=== PATIENT | female | born 1960 | race Caucasian/White ===

== ENCOUNTER 2016-10-15 04:38 | Emergency (ER) | payer BC ==
[~2016-10-15] VITALS: Ht 167.6 cm; Wt 79.2 kg
[~2016-10-15 04:38] MED LIST: ATOR10TA88 PO; FLX10 PO; LEVO-366 PO; LISI-729 PO; PANT40TA PO
[2016-10-15 04:43] VITALS: Ht 167.6 cm; Wt 79.2 kg
[2016-10-15] MEDS ORDERED: ONDANSETRON INJ 2 MG/ML 2 ML VIAL IV STA (04:59)
[2016-10-15] MEDS ORDERED: MoRPHine SULFATE 4 MG/ML 1 ML CARP\\VIAL IV STA ×2 (04:59→07:32)
--- NOTE | 2016-10-15 05:24 | EMERGENCY ROOM VISIT NOTE ---
History Report prepared by Jeronimo: Carlos A Horton Under the Supervision of: Dr. Gisel Brady D.O. First contact with patient: 04:52 Chief Complaint: HEADACHE Stated Complaint: HEAD ACHE History of Present Illness The patient is a 56 year old female who presents to the Emergency Room with complaints of a severe headache for the past couple of hours. The patient notes that the discomfort from the headache woke her up from sleep. She describes the comfort as severe shooting pains. She also complains of nausea. She has not had a headache like this before. She has not had any changes to her medications recently. She takes her blood pressure medication as prescribed and her blood pressure is usually pretty controlled. Source of History: patient Onset: past couple of hours Position: head Symptom Intensity: severe Quality: other (shooting) Timing: other (persistent) Associated Symptoms: + nausea Review of Systems See HPI for pertinent positives & negatives. A total of 10 systems reviewed and were otherwise negative. Past Medical & Surgical Medical Problems: (1) Hypertension Nos Surgical Problems: (1) History of appendectomy (2) History of hysterectomy Family History Heart disease Hypertension Kidney disease Kidney stones Seizures Social History Smoking Status: Former Smoker Alcohol Use: occasionally Marital Status: Housing Status: lives with significant other Occupation Status: employed Current/Historical Medications Scheduled Atorvastatin (Lipitor), 10 MG PO DAILY Pantoprazole (Protonix), 40 MG PO DAILY Scheduled PRN Cyclobenzaprine HCl (Cyclobenzaprine HCl), 10 MG PO HS PRN for Muscle Spasms Oxycodone/Acetaminophen 5MG/325MG (Percocet 5MG/325MG), 1-2 TABLETS PO Q6 PRN for Pain Allergies Coded Allergies: Naproxen (Verified Allergy, Unknown, ., 10/15/16) Sulfamethoxazole w/Trimethoprim (Verified Allergy, Unknown, UNKNOWN, ) Physical Exam Vital Signs Date Time Temp Pulse Resp B/P Pulse Ox O2 Delivery O2 Flow Rate FiO2 10/15/16 07:49 65 15 164/100 97 Room Air 10/15/16 07:11 36.5 61 22 173/107 96 Room Air 10/15/16 06:30 56 18 161/92 10/15/16 06:06 63 18 159/94 97 Room Air 10/15/16 05:19 62 16 170/102 98 Room Air 10/15/16 05:12 73 3/2/17 04:43 90 22 206/100 95 Room Air Physical Exam General: Appears extremely uncomfortable, photophobic, and tachypneic. HEENT: Head - normocephalic and atraumatic. Pupils are equal, round, and reactive to light. Extraocular eye muscles are intact and sclera are anicteric. Ears - bilaterally patent canals with noninjected tympanic membranes and no evidence of hemotympanum. Nose - moist nasal mucosa without discharge. Mouth - moist buccal mucosa. Oropharynx is nonerythematous and there is no tonsillar exudate or edema noted. Neck: Supple; no JVD, nuchal rigidity, cervical lymphadenopathy, or auscultated bruits. Heart: Regular rate and rhythm. There is a normal S1 and S2 with no murmurs, clicks, or gallops appreciated. Lungs: Clear to auscultation bilaterally with no wheezes, rales, or rhonchi. Abdomen: Soft, completely nontender, nondistended, with good bowel sounds. There are no palpable pulsatile masses or hepatosplenomegaly. There is no guarding, rigidity, or rebound noted. Extremities: No evidence of cyanosis, clubbing, or edema. There are easily palpable peripheral pulses. Neuro:The patient is awake and alert, oriented to day, time, and place. Muscle strength is 5/5 in all 4 extremities. 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 There are no cerebellar signs. Medical Decision & Procedures ER Provider Diagnostic Interpretation: CT results as stated below per my review and radiologist interpretation: HEAD CT NONCONTRAST CT DOSE: 614.27 mGy.cm HISTORY: severe headache and htn TECHNIQUE: Multiaxial CT images of the head were performed without the use of intravenous contrast. Comparison: None. Findings: The paranasal sinuses and mastoid air cells are clear. The calvarium and skull base are intact. The ventricles and sulci are within normal limits. There is no mass, hematoma, midline shift, or acute infarct. Impression: No acute intracranial abnormality. Electronically signed by: Kingsley Steele M.D. 10/15/2016 6:34 AM Dictated Date/Time: 10/15/2016 6:33 AM Laboratory Results 10/15/16 05:15 Red Blood Count 4.71, Mean Corpuscular Volume 81.7, Mean Corpuscular Hemoglobin 29.1, Mean Corpuscular Hemoglobin Concent 35.6, Mean Platelet Volume 9.1, Neutrophils (%) (Auto) 59.0, Lymphocytes (%) (Auto) 28.4, Monocytes (%) (Auto) 9.7, Eosinophils (%) (Auto) 2.4, Basophils (%) (Auto) 0.3, Neutrophils # (Auto) 3.88, Lymphocytes # (Auto) 1.87, Monocytes # (Auto) 0.64, Eosinophils # (Auto) 0.16, Basophils # (Auto) 0.02 10/15/16 05:15 Test 10/15/16 05:15 10/15/16 06:29 White Blood Count 6.58 K/uL (4.8-10.8) Red Blood Count 4.71 M/uL (4.2-5.4) Hemoglobin 13.7 g/dL (12.0-16.0) Hematocrit 38.5 % (37-47) Mean Corpuscular Volume 81.7 fL (80-100) Mean Corpuscular Hemoglobin 29.1 pg (25-34) Mean Corpuscular Hemoglobin Concent 35.6 g/dl (32-36) Platelet Count 178 K/uL (130-400) Mean Platelet Volume 9.1 fL (7.4-10.4) Neutrophils (%) (Auto) 59.0 % Lymphocytes (%) (Auto) 28.4 % Monocytes (%) (Auto) 9.7 % Eosinophils (%) (Auto) 2.4 % Basophils (%) (Auto) 0.3 % Neutrophils # (Auto) 3.88 K/uL (1.4-6.5) Lymphocytes # (Auto) 1.87 K/uL (1.2-3.4) Monocytes # (Auto) 0.64 K/uL (0.11-0.59) Eosinophils # (Auto) 0.16 K/uL (0-0.5) Basophils # (Auto) 0.02 K/uL (0-0.2) RDW Standard Deviation 37.4 fL (36.4-46.3) RDW Coefficient of Variation 12.5 % (11.5-14.5) Immature Granulocyte % (Auto) 0.2 % Immature Granulocyte # (Auto) 0.01 K/uL (0.00-0.02) Nucleated RBC Absolute Count (auto) 0.00 K/uL (0-0) Nucleated Red Blood Cells % 0.0 % Anion Gap 9.0 mmol/L (3-11) Est Creatinine Clear Calc Drug Dose 98.9 ml/min Estimated GFR () 114.4 Estimated GFR (Non- 98.7 BUN/Creatinine Ratio 19.5 (10-20) Calcium Level 8.9 mg/dl (8.5-10.1) CSF Color COLORLESS CSF Appearance CLEAR CSF WBC 0 /uL (0-5) CSF RBC 2 /uL (0) CSF Xanthrochromic NO XANTHOCHROMIA CSF Cell Count Tube # 4 CSF Chemistry Tube # 2 CSF Glucose 64 mg/dl (40-70) CSF Total Protein 34.2 mg/dl (15.0-45.0) Laboratory results per my review. Medications Administered Medications (Trade) Dose Ordered Sig/Nomi Route Start Time Stop Time Status Last Admin Dose Admin Morphine Sulfate (MoRPHine SULFATE INJ) 4 mg NOW STAT IV 10/15/16 04:59 10/15/16 05:01 DC 10/15/16 05:07 4 MG Ondansetron HCl (Zofran Inj) 4 mg NOW STAT IV 10/15/16 04:59 10/15/16 05:01 DC 10/15/16 05:07 4 MG Morphine Sulfate (MoRPHine SULFATE INJ) 4 mg NOW STAT IV 10/15/16 07:32 10/15/16 07:33 DC 10/15/16 07:47 4 MG Oxycodone/ Acetaminophen (Percocet 5/ 325MG Home Pack) 1 homepack UD ONCE PO 10/15/16 08:00 10/15/16 08:01 DC 10/15/16 08:07 1 HOMEPACK Procedure Zofran Inj IV Morphine Sulfate IV Morphine Sulfate IV Oxycodone/ Acetaminophen home pack Lumbar Puncture Indication: worst headache ever Verbal consent was obtained after the risks and benefits were explained, including but not limited to headache, bleeding/clotting, scarring, infection, pain, and bone/joint/nerve damage. At this time, the risks of the procedure are less than the risks of NOT performing the procedure. A time out was taken and the correct patient and site identified. The patient was placed in the draped over a tray table position and the back was prepped with betadine and draped in the standard fashion. The L3 intervertebral space was identified, anesthetized locally with 1% lidocaine without epinephrine, and the spinal needle was inserted through the skin with the bevel parallel to the dural fibers. The needle was carefully advanced into the lumbar cistern and 4 tubes of clear CSF was obtained. The stylet was replaced and the needle was removed. A bandaid was placed and the patient was placed in the supine position. The patient tolerated the procedure well and there were no complications. ECG Indication: other Rate (beats per minute): 64 Rhythm: normal sinus Findings: no acute ischemic change, no ectopy ED Course 0458: Past medical records reviewed. The patient was evaluated in room B9. A complete history and physical exam was performed. An IV lock was initiated and labs were drawn as above. 0459: Ordered Zofran Inj 4 mg IV, Morphine Sulfate 4 mg IV. The patient went for CT scan of the brain as described above. 0527: At this time, the patient reports that her pain is down to a 5/10 in severity and is tolerable. 0559: At this time I reevaluated the patient and she has severe pain coming back. 0615: At this time, I performed a Lumbar Puncture on the patient. See procedure notes above. 0732: Ordered Morphine Sulfate 4 mg IV. 0745: I reevaluated the patient and she is much improved after the second dose of Morphine. 0800: Ordered Oxycodone/ Acetaminophen 1 homepack PO. Medical Decision The patient is a 56 year old female who presents to the ED with complaints of a severe headache. Differential diagnoses include: subarachnoid hemorrhage, cerebral aneurysm, cluster headache, migraine, tension headache, giant cell arteritis. Labs reviewed by me: No leukocytosis stable H&H glucose 117 normal renal function clear and colorless no xanathrochrmoia 0 wbcs 2 rbcs , glucose 64 protein 34 The patient presents to the emergency department after awakening with the worst headache of her life. The pain was finally controlled after some IV morphine. CT scan of the brain was unremarkable. Lumbar puncture revealed no significant blood to suggest subarachnoid hemorrhage. I've encouraged the patient to rest and take it easy today. I've given her for prescription for Percocet to use for pain. I have asked her to follow-up with her PCP later today for a recheck. Impression Primary Impression: Headache Scribe Attestation The scribe's documentation has been prepared under my direction and personally reviewed by me in its entirety. I confirm that the note above accurately reflects all work, treatment, procedures, and medical decision making performed by me. Departure Information Dispostion Home / Self-Care Prescriptions Oxycodone/Acetaminophen 5MG/325MG (PERCOCET 5MG/325MG) Tab 1-2 TABLETS PO Q6 Y for Pain, #14 TAB Prov: Gisel Brady D.O. 10/15/16 Referrals Jluis Doss D.O. (PCP) Forms HOME CARE DOCUMENTATION FORM, IMPORTANT VISIT INFORMATION Patient Instructions Headaches Self Care, My [facility] Additional Instructions Rest. Keep yourself well-hydrated. Percocet - 1-2 tabs. every 4-6 hours for pain Return to the ER if symptoms worsen
[2016-10-15 05:54] LABS: BUN/CREATININE RATIO 19.5 (10-20); CALCIUM 8.9 mg/dl (8.5-10.1); CREATININE 0.69 mg/dl (0.60-1.20); POTASSIUM 3.6 mmol/L (3.5-5.1)
--- NOTE | 2016-10-15 06:35 | DIAGNOSTIC IMAGING REPORT ---
HEAD CT NONCONTRAST CT DOSE: 614.27 mGy.cm HISTORY: severe headache and htn TECHNIQUE: Multiaxial CT images of the head were performed without the use of intravenous contrast. Comparison: None. Findings: The paranasal sinuses and mastoid air cells are clear. The calvarium and skull base are intact. The ventricles and sulci are within normal limits. There is no mass, hematoma, midline shift, or acute infarct. Impression: No acute intracranial abnormality. Electronically signed by: Kingsley Steele M.D. 10/15/2016 6:34 AM Dictated Date/Time: 10/15/2016 6:33 AM
[2016-10-15 06:41] LABS: BASO % 0.3 %; BASO ABS # 0.02 K/uL (0-0.2); COMPLETE YES; EOS % 2.4 %; HEMATOCRIT 38.5 % (37-47); IG% 0.2 %; LYMPH % 28.4 %; LYMPH ABS # 1.87 K/uL (1.2-3.4); MEAN CELL VOLUME 81.7 fL (80-100); MEAN CORPUSCULAR HEMOGLOBIN 29.1 pg (25-34); MEAN CORPUSCULAR HGB CONC 35.6 g/dl (32-36); MEAN PLATELET VOLUME 9.1 fL (7.4-10.4); MONO % 9.7 %; PLATELET COUNT 178 K/uL (130-400); RED BLOOD COUNT 4.71 M/uL (4.2-5.4); WHITE BLOOD COUNT 6.58 K/uL (4.8-10.8)
[2016-10-15 06:53] LABS: CSF CHEMISTRY TUBE # 2
[2016-10-15 06:59] LABS: CSF TOTAL PROTEIN 34.2 mg/dl (15.0-45.0)
[2016-10-15 07:11] VITALS: TEMP 36.5
[2016-10-15 07:43] LABS: CSF APPEARANCE CLEAR; CSF COLOR COLORLESS; CSF XANTHOCHROMIC NO XANTHOCHROMIA
[2016-10-15 07:49] VITALS: BP 164/100; PULSE 65; O2SAT 97
[2016-10-15] MEDS ORDERED: OXYC-57 PO (07:56)
[2016-10-15] MEDS ORDERED: PERCOCET HOME PACK PO ONE (08:00)
== END 2016-10-15 08:13 | disposition home or self-care (01) ==
LOC: C.EDB 04:38
DX: R51 Headache (principal); I10 Essential (primary) hypertension; Z90.710 Acquired absence of both cervix and uterus; Z87.891 Personal history of nicotine dependence

== ENCOUNTER 2017-09-16 14:20 | Inpatient (IN) | payer OTHER ==
[~2017-09-16] VITALS: Ht 167.6 cm; Wt 73.9 kg
[~2017-09-16 14:20] MED LIST changes: +ATOR10TA82 PO; -ATOR10TA88 PO; -FLX10 PO; +IBUP-1050 PO; -LEVO-366 PO; -LISI-729 PO; +LOSA1TAB PO; +OXYC-57 PO
[2017-09-16 15:01] LABS: BASO % 0.1 %; BASO ABS # 0.01 K/uL (0-0.2); EOS % 0.1 %; EOS ABS # 0.01 K/uL (0-0.5); HEMATOCRIT 38.1 % (37-47); HEMOGLOBIN 13.1 g/dL (12.0-16.0); IG# 0.02 K/uL (0.00-0.02); LYMPH % 12.1 %; MEAN CORPUSCULAR HEMOGLOBIN 29.6 pg (25-34); MEAN CORPUSCULAR HGB CONC 34.4 g/dl (32-36); MONO % 7.9 %; MONO ABS # 0.85 K/uL (0.11-0.59); NEUT % 79.6 %; NEUT ABS # 8.57 K/uL (1.4-6.5); PLATELET COUNT 160 K/uL (130-400); RED CELL DISTRIBUTION WIDTH CV 13.2 % (11.5-14.5); RED CELL DISTRIBUTION WIDTH SD 41.2 fL (36.4-46.3); WHITE BLOOD COUNT 10.76 K/uL (4.8-10.8)
[2017-09-16] MEDS ORDERED: CZR25 PO (15:15)
[2017-09-16] MEDS ORDERED: MRLP527 PO (15:15)
[2017-09-16] MEDS ORDERED: LPT10 PO (15:15)
[2017-09-16] MEDS ORDERED: SODIUM CHLORIDE 0.9% 1000ML 1,000 ML IV STA (15:16)
--- NOTE | 2017-09-16 15:16 | EMERGENCY ROOM VISIT NOTE ---
History First contact with patient: 14:30 Chief Complaint: ABDOMINAL PAIN Stated Complaint: ABDOMINAL PAIN Nursing Triage Summary: Pt with c/o abd pain, right arm and shoulder pain. Cholecystectomy yesterday. States she has been dealing with pain all night. Nausea- 4mg zofran and 200mcg fentanyl given [employer]. Taking oxycodone for pain. History of Present Illness The patient is a 57 year old female who presents to the Emergency Room with complaints of right abdominal and right shoulder pain. The patient had a lap cheko yesterday. Pain started last night. EMS called today and gave 200mcg of fentanyl. She felt improved. Pt denies LOC, headache, fevers, chills, diaphoresis, visual changes, neck pain, chest pain, breathing difficulties, nausea, vomiting, back pain, melena, hematochezia, urinary symptoms, numbness, weakness, lymphadenopathy, rash, or other complaints. Review of Systems See HPI for pertinent positives and negatives. A total of ten systems were reviewed and were otherwise negative. Past Medical/Surgical History Medical Problems: (1) Hypertension Nos (2) Post-operative pain Surgical Problems: (1) History of appendectomy (2) History of hysterectomy Family History Heart disease Hypertension Kidney disease Kidney stones Seizures Social History Smoking Status: Former Smoker Alcohol Use: occasionally Marital Status: Housing Status: lives with significant other Occupation Status: employed Current/Historical Medications Scheduled Atorvastatin (Lipitor), 10 MG PO DAILY Losartan Potassium (Losartan Potassium), 25 MG PO DAILY Pantoprazole (Protonix), 40 MG PO QAM Scheduled PRN Ibuprofen (Advil), 600 MG PO Q4-6HRS PRN for Pain Oxycodone/Acetaminophen 5MG/325MG (Percocet 5MG/325MG), 1 TABLET PO Q4H PRN for Pain Polyethylene (Polyethylene Glycol 3350), 17 GM PO DAILY PRN for Constipation Physical Exam Vital Signs Date Time Temp Pulse Resp B/P (MAP) Pulse Ox O2 Delivery O2 Flow Rate FiO2 09/16/17 18:07 85 18 224/109 96 Room Air 09/16/17 17:14 77 16 206/106 96 Room Air 09/16/17 16:19 75 18 224/106 95 Room Air 09/16/17 15:08 82 16 215/107 95 Room Air 09/16/17 14:28 36.7 66 15 210/113 93 Room Air 09/16/17 14:26 72 Physical Exam GENERAL: Awake, alert, very uncomfortable, in no distress HENT: Normocephalic, atraumatic. Oropharynx unremarkable. EYES: Normal conjunctiva. Sclera non-icteric. NECK: Supple. No nuchal rigidity. FROM. No JVD. RESPIRATORY: Clear to auscultation. CARDIAC: Regular rate, normal rhythm. Extremities warm and well perfused. Pulses equal. ABDOMEN: Soft, non-distended. Upper quadrant tenderness to palpation. No rebound or guarding. No masses. Surgical incisions are clean and dry and intact. RECTAL: Deferred. MUSCULOSKELETAL: Chest examination reveals no tenderness. The back is symmetrical on inspection without obvious abnormality. There is no CVA tenderness to palpation. No joint edema. LOWER EXTREMITIES: Calves are equal size bilaterally and non-tender. No edema. No discoloration. NEURO: Normal sensorium. No sensory or motor deficits noted. SKIN: No rash or jaundice noted. Medical Decision & Procedures ER Provider Diagnostic Interpretation: ABDOMEN AND PELVIS CT WITH IV CONTRAST CT DOSE: 705.39 mGycm HISTORY: Right upper quadrant abdominal pain. TECHNIQUE: Multiaxial CT images of the abdomen and pelvis were performed following the use of intravenous contrast. A dose lowering technique was utilized adhering to the principles of ALARA. COMPARISON STUDY: Abdomen and pelvis CT 07/02/2014. FINDINGS: Bilateral lower lobe densities are nonspecific but favor atelectasis. No pneumoperitoneum. No pneumatosis. Patient is status post recent cholecystectomy. Trace fluid at the gallbladder fossa and trace perihepatic fluid is noted. Small amount of fluid within the pelvic cul-de-sac which demonstrates slightly hyperdense fluid posteriorly suggestive of a hematocrit level. This could represent postoperative fluid and/or a small amount of blood products. No hepatic or splenic masses. The adrenal glands, pancreas, and right kidney are unremarkable. No hydronephrosis. Hysterectomy. The bladder is within normal limits. Multiple left peripelvic cysts. Left-sided nephrolithiasis. No retroperitoneal lymphadenopathy. The appendix is not identified and likely surgically absent. A few colonic diverticula. No bowel wall thickening or obstruction. 5 mm hypodense lesion within the left hepatic lobe is too small to characterize. IMPRESSION: 1. Status post recent cholecystectomy. Trace fluid at the gallbladder fossa and trace perihepatic fluid. This is nonspecific but is likely due to the recent postoperative change. A bile leak is considered less likely but not entirely excluded. 2. There is also a small amount of fluid within the deep pelvis demonstrating small hematocrit levels suggestive of blood products. This can also be seen the setting of postoperative change. 3. No bowel wall thickening or obstruction. 4. Colonic diverticulosis. 5. Left-sided nephrolithiasis. No ureteral stones. No hydronephrosis. 6. Bilateral lower lobe densities are nonspecific but favor atelectasis. Electronically signed by: Gustavo Verdugo M.D. 09/16/2017 5:01 PM Dictated Date/Time: 09/16/2017 4:46 PM Laboratory Results 09/16/17 14:48 Red Blood Count 4.43, Mean Corpuscular Volume 86.0, Mean Corpuscular Hemoglobin 29.6, Mean Corpuscular Hemoglobin Concent 34.4, Mean Platelet Volume 9.0, Neutrophils (%) (Auto) 79.6, Lymphocytes (%) (Auto) 12.1, Monocytes (%) (Auto) 7.9, Eosinophils (%) (Auto) 0.1, Basophils (%) (Auto) 0.1, Neutrophils # (Auto) 8.57, Lymphocytes # (Auto) 1.30, Monocytes # (Auto) 0.85, Eosinophils # (Auto) 0.01, Basophils # (Auto) 0.01 09/16/17 14:48 Test 09/16/17 14:48 White Blood Count 10.76 K/uL (4.8-10.8) Red Blood Count 4.43 M/uL (4.2-5.4) Hemoglobin 13.1 g/dL (12.0-16.0) Hematocrit 38.1 % (37-47) Mean Corpuscular Volume 86.0 fL (80-100) Mean Corpuscular Hemoglobin 29.6 pg (25-34) Mean Corpuscular Hemoglobin Concent 34.4 g/dl (32-36) Platelet Count 160 K/uL (130-400) Mean Platelet Volume 9.0 fL (7.4-10.4) Neutrophils (%) (Auto) 79.6 % Lymphocytes (%) (Auto) 12.1 % Monocytes (%) (Auto) 7.9 % Eosinophils (%) (Auto) 0.1 % Basophils (%) (Auto) 0.1 % Neutrophils # (Auto) 8.57 K/uL (1.4-6.5) Lymphocytes # (Auto) 1.30 K/uL (1.2-3.4) Monocytes # (Auto) 0.85 K/uL (0.11-0.59) Eosinophils # (Auto) 0.01 K/uL (0-0.5) Basophils # (Auto) 0.01 K/uL (0-0.2) RDW Standard Deviation 41.2 fL (36.4-46.3) RDW Coefficient of Variation 13.2 % (11.5-14.5) Immature Granulocyte % (Auto) 0.2 % Immature Granulocyte # (Auto) 0.02 K/uL (0.00-0.02) Anion Gap 7.0 mmol/L (3-11) Est Creatinine Clear Calc Drug Dose 80.7 ml/min Estimated GFR () 94.8 Estimated GFR (Non- 81.8 BUN/Creatinine Ratio 18.2 (10-20) Calcium Level 8.5 mg/dl (8.5-10.1) Total Bilirubin 1.0 mg/dl (0.2-1) Direct Bilirubin 0.4 mg/dl (0-0.2) Aspartate Amino Transf (AST/SGOT) 102 U/L (15-37) Alanine Aminotransferase (ALT/SGPT) 118 U/L (12-78) Alkaline Phosphatase 141 U/L (45-117) Total Protein 7.2 gm/dl (6.4-8.2) Albumin 3.7 gm/dl (3.4-5.0) Lipase 90 U/L (73-393) Medications Administered Medications (Trade) Dose Ordered Sig/Nomi Route Start Time Stop Time Status Last Admin Dose Admin Sodium Chloride 1,000 ml @ 999 mls/hr Q1H1M STAT IV 09/16/17 15:16 09/16/17 16:16 DC 09/16/17 15:54 999 MLS/HR Ondansetron HCl (Zofran Inj) 4 mg NOW STAT IV 09/16/17 15:27 09/16/17 15:28 DC 09/16/17 15:54 4 MG Hydromorphone HCl (Dilaudid Inj) 0.5 mg Q20M PRN IV 09/16/17 16:15 09/16/17 20:00 09/16/17 18:03 0.5 MG Hydralazine HCl (HydrALAZINE INJ) 10 mg ONE STAT IV. 09/16/17 17:44 09/16/17 17:46 DC 09/16/17 18:03 10 MG Medical Decision Triage Nursing notes reviewed. The patient's presentation and history were concerning for postoperative abdominal pain. Etiologies such as competition of cholecystectomy, diaphragmatic irritation, bile leak, appendicitis, diverticulitis, obstruction, inflammatory bowel disease, renal colic, PUD, biliary pathology, pancreatitis, mesenteric ischemia , aortic pathology, infections, genitourinary, UTI, perforated viscus, as well as others were entertained. The patient was treated with IV fentanyl prehospital. She was given IV doses of Dilaudid here. She is given Zofran. She was still symptomatically but had some improvement. She was hypertensive. Twelve-lead ECG was performed and revealed normal sinus rhythm without ischemia. The patient's blood work was unremarkable. CT imaging was performed as above. The patient has some atelectasis in the right lower lobe. She does not have any pulmonary symptoms. She has some trace amount of fluid in the gallbladder fossa. She was given IV hydralazine for her blood pressure 2. The patient was given IV Phenergan and because of continued nausea. Her surgeon, Dr. Lara was consulted. He evaluated her in the emergency department and admitted her for further treatment. The patient was seen and examined with Dr. Pulliam, resident physician. We discussed the case and treatments ordered, reviewed the results, and determine the disposition. Please refer to the resident's note for additional details. I have been directly involved with the management and disposition as well as independently evaluated the patient as documented in this note. Impression Primary Impression: Postoperative abdominal pain Additional Impression: Severe hypertension Departure Information Dispostion Being Evaluated By Surgeon Referrals Jluis Doss D.O. (PCP) Patient Instructions My [facility] Problem Qualifiers
[2017-09-16 15:19] LABS: ALBUMIN 3.7 gm/dl (3.4-5.0); CALCIUM 8.5 mg/dl (8.5-10.1); CREATININE 0.81 mg/dl (0.60-1.20); POTASSIUM 3.9 mmol/L (3.5-5.1)
--- NOTE | 2017-09-16 15:20 | EMERGENCY ROOM VISIT NOTE ---
History First contact with patient: 14:45 Chief Complaint: ABDOMINAL PAIN Stated Complaint: ABDOMINAL PAIN Nursing Triage Summary: Pt with c/o abd pain, right arm and shoulder pain. Cholecystectomy yesterday. States she has been dealing with pain all night. 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 Taking oxycodone for pain. History of Present Illness The patient is a 57 year old female who presents to the Emergency Room with complaints of constant, sharp RQ abdominal a/w RT shoulder pain s/p lap choly day#1. Pain began yesterday evening after coming home from hospital, pt unable to sleep or lay down flat. Denies diarrhea, vomiting, fevers, chills. Called EMS this afternoon bc she was unable to tolerate pain any further. Currently pain is poorly controlled on 200mcg fentanyl given during transit. Review of Systems see HPI Past Medical/Surgical History Medical Problems: (1) Hypertension Nos (2) Post-operative pain Surgical Problems: (1) History of appendectomy (2) History of hysterectomy Family History Heart disease Hypertension Kidney disease Kidney stones Seizures Social History Smoking Status: Former Smoker Alcohol Use: occasionally Marital Status: Housing Status: lives with significant other Occupation Status: employed Current/Historical Medications Scheduled Atorvastatin (Lipitor), 10 MG PO DAILY Losartan Potassium (Losartan Potassium), 25 MG PO DAILY Pantoprazole (Protonix), 40 MG PO QAM Scheduled PRN Ibuprofen (Advil), 600 MG PO Q4-6HRS PRN for Pain Oxycodone/Acetaminophen 5MG/325MG (Percocet 5MG/325MG), 1 TABLET PO Q4H PRN for Pain Polyethylene (Polyethylene Glycol 3350), 17 GM PO DAILY PRN for Constipation Physical Exam Vital Signs Date Time Temp Pulse Resp B/P (MAP) Pulse Ox O2 Delivery O2 Flow Rate FiO2 09/16/17 18:07 85 18 224/109 96 Room Air 09/16/17 17:14 77 16 206/106 96 Room Air 09/16/17 16:19 75 18 224/106 95 Room Air 09/16/17 15:08 82 16 215/107 95 Room Air 09/16/17 14:28 36.7 66 15 210/113 93 Room Air 09/16/17 14:26 72 Physical Exam as below General Appearance: WD/WN, + moderate distress Respiratory/Chest: lungs clear, normal breath sounds, + pertinent finding ( unable to take a deep breath) Cardiovascular: regular rate, rhythm, no gallop Abdomen / GI: soft, + pertinent finding (hypoactive bowel sounds / exquisitely tender on right side. Lap incisions in tact, soft.) Back: normal inspection, no CVA tenderness Extremities: normal capillary refill, no pedal edema, + pertinent finding ( RT shoulder tender) Neurologic/Psych: alert, oriented x 3 Medical Decision & Procedures Laboratory Results 09/16/17 14:48 Red Blood Count 4.43, Mean Corpuscular Volume 86.0, Mean Corpuscular Hemoglobin 29.6, Mean Corpuscular Hemoglobin Concent 34.4, Mean Platelet Volume 9.0, Neutrophils (%) (Auto) 79.6, Lymphocytes (%) (Auto) 12.1, Monocytes (%) (Auto) 7.9, Eosinophils (%) (Auto) 0.1, Basophils (%) (Auto) 0.1, Neutrophils # (Auto) 8.57, Lymphocytes # (Auto) 1.30, Monocytes # (Auto) 0.85, Eosinophils # (Auto) 0.01, Basophils # (Auto) 0.01 09/16/17 14:48 Test 09/16/17 14:48 White Blood Count 10.76 K/uL (4.8-10.8) Red Blood Count 4.43 M/uL (4.2-5.4) Hemoglobin 13.1 g/dL (12.0-16.0) Hematocrit 38.1 % (37-47) Mean Corpuscular Volume 86.0 fL (80-100) Mean Corpuscular Hemoglobin 29.6 pg (25-34) Mean Corpuscular Hemoglobin Concent 34.4 g/dl (32-36) Platelet Count 160 K/uL (130-400) Mean Platelet Volume 9.0 fL (7.4-10.4) Neutrophils (%) (Auto) 79.6 % Lymphocytes (%) (Auto) 12.1 % Monocytes (%) (Auto) 7.9 % Eosinophils (%) (Auto) 0.1 % Basophils (%) (Auto) 0.1 % Neutrophils # (Auto) 8.57 K/uL (1.4-6.5) Lymphocytes # (Auto) 1.30 K/uL (1.2-3.4) Monocytes # (Auto) 0.85 K/uL (0.11-0.59) Eosinophils # (Auto) 0.01 K/uL (0-0.5) Basophils # (Auto) 0.01 K/uL (0-0.2) RDW Standard Deviation 41.2 fL (36.4-46.3) RDW Coefficient of Variation 13.2 % (11.5-14.5) Immature Granulocyte % (Auto) 0.2 % Immature Granulocyte # (Auto) 0.02 K/uL (0.00-0.02) Anion Gap 7.0 mmol/L (3-11) Est Creatinine Clear Calc Drug Dose 80.7 ml/min Estimated GFR () 94.8 Estimated GFR (Non- 81.8 BUN/Creatinine Ratio 18.2 (10-20) Calcium Level 8.5 mg/dl (8.5-10.1) Total Bilirubin 1.0 mg/dl (0.2-1) Direct Bilirubin 0.4 mg/dl (0-0.2) Aspartate Amino Transf (AST/SGOT) 102 U/L (15-37) Alanine Aminotransferase (ALT/SGPT) 118 U/L (12-78) Alkaline Phosphatase 141 U/L (45-117) Total Protein 7.2 gm/dl (6.4-8.2) Albumin 3.7 gm/dl (3.4-5.0) Lipase 90 U/L (73-393) Medications Administered Medications (Trade) Dose Ordered Sig/Nomi Route Start Time Stop Time Status Last Admin Dose Admin Sodium Chloride 1,000 ml @ 999 mls/hr Q1H1M STAT IV 09/16/17 15:16 09/16/17 16:16 DC 09/16/17 15:54 999 MLS/HR Ondansetron HCl (Zofran Inj) 4 mg NOW STAT IV 09/16/17 15:27 09/16/17 15:28 DC 09/16/17 15:54 4 MG Hydromorphone HCl (Dilaudid Inj) 0.5 mg Q20M PRN IV 09/16/17 16:15 09/16/17 20:00 09/16/17 18:03 0.5 MG Hydralazine HCl (HydrALAZINE INJ) 10 mg ONE STAT IV. 09/16/17 17:44 09/16/17 17:46 DC 09/16/17 18:03 10 MG Procedure ABDOMEN AND PELVIS CT WITH IV CONTRAST CT DOSE: 705.39 mGycm HISTORY: Right upper quadrant abdominal pain. TECHNIQUE: Multiaxial CT images of the abdomen and pelvis were performed following the use of intravenous contrast. A dose lowering technique was utilized adhering to the principles of ALARA. COMPARISON STUDY: Abdomen and pelvis CT 07/02/2014. FINDINGS: Bilateral lower lobe densities are nonspecific but favor atelectasis. No pneumoperitoneum. No pneumatosis. Patient is status post recent cholecystectomy. Trace fluid at the gallbladder fossa and trace perihepatic fluid is noted. Small amount of fluid within the pelvic cul-de-sac which demonstrates slightly hyperdense fluid posteriorly suggestive of a hematocrit level. This could represent postoperative fluid and/or a small amount of blood products. No hepatic or splenic masses. The adrenal glands, pancreas, and right kidney are unremarkable. No hydronephrosis. Hysterectomy. The bladder is within normal limits. Multiple left peripelvic cysts. Left-sided nephrolithiasis. No retroperitoneal lymphadenopathy. The appendix is not identified and likely surgically absent. A few colonic diverticula. No bowel wall thickening or obstruction. 5 mm hypodense lesion within the left hepatic lobe is too small to characterize. IMPRESSION: 1. Status post recent cholecystectomy. Trace fluid at the gallbladder fossa and trace perihepatic fluid. This is nonspecific but is likely due to the recent postoperative change. A bile leak is considered less likely but not entirely excluded. 2. There is also a small amount of fluid within the deep pelvis demonstrating small hematocrit levels suggestive of blood products. This can also be seen the setting of postoperative change. 3. No bowel wall thickening or obstruction. 4. Colonic diverticulosis. 5. Left-sided nephrolithiasis. No ureteral stones. No hydronephrosis. 6. Bilateral lower lobe densities are nonspecific but favor atelectasis. Electronically signed by: Gustavo Verdugo M.D. 09/16/2017 5:01 PM Dictated Date/Time: 09/16/2017 4:46 PM ED Course 1447 Personally reviewed record, seen and assessed by me. [address] abd/pelv, dilaudid .5mg q30m prn pain, 1L NSS @ 999ml/hr. CT as above. [address] Rodriguez who is airline reservation agent, says he will go see patient. 1729 Dec made to admit for further work up, Dr. Rodriguez asks for IV hydralazine. Medical Decision The patient is a 57 year old female who presents to the Emergency Room with complaints of constant, sharp RQ abdominal a/w RT shoulder pain s/p lap choly day#1. Pain began yesterday evening after coming home from hospital, pt unable to sleep or lay down flat. Denies diarrhea, vomiting, fevers, chills. Called EMS this afternoon bc she was unable to tolerate pain any further. Currently pain is poorly controlled on 200mcg fentanyl given during transit. CT abd shows fluid in the abdomen, c/w post op leakage. D/w surgeon airline reservation agent, who also performed the surgery, and decision made to admit for further work up of post operative abdominal pain. Of note, 15 mg of Hydralazine needed to control hypertension. Ddx includes leakage, rupture of appendix, pancreatitis, infection of incision. Impression Primary Impression: Post-operative pain Departure Information Dispostion Admitted as an inpatient Condition FAIR Patient Instructions [facility] Resident Tracking Resident Involvement: Resident Care Provided Care Provided: Adult ED
[2017-09-16 15:22] LABS: TOTAL PROTEIN 7.2 gm/dl (6.4-8.2)
[2017-09-16] MEDS ORDERED: ONDANSETRON INJ 2 MG/ML 2 ML VIAL IV STA (15:27)
[2017-09-16] MEDS ORDERED: HYDROmorphone INJ 0.5 MG/0.5 ML SYR IV PRN (15:30)
[2017-09-16] MEDS ORDERED: OPTIRAY 320 IV PRN (15:30)
[2017-09-16] MEDS: HYDROmorphone INJ 0.5 MG/0.5 ML SYR IV PRN ×2 (16:17→18:03)
--- NOTE | 2017-09-16 17:02 | DIAGNOSTIC IMAGING REPORT ---
ABDOMEN AND PELVIS CT WITH IV CONTRAST CT DOSE: 705.39 mGycm HISTORY: Right upper quadrant abdominal pain. TECHNIQUE: Multiaxial CT images of the abdomen and pelvis were performed following the use of intravenous contrast. A dose lowering technique was utilized adhering to the principles of ALARA. COMPARISON STUDY: Abdomen and pelvis CT 07/02/2014. FINDINGS: Bilateral lower lobe densities are nonspecific but favor atelectasis. No pneumoperitoneum. No pneumatosis. Patient is status post recent cholecystectomy. Trace fluid at the gallbladder fossa and trace perihepatic fluid is noted. Small amount of fluid within the pelvic cul-de-sac which demonstrates slightly hyperdense fluid posteriorly suggestive of a hematocrit level. This could represent postoperative fluid and/or a small amount of blood products. No hepatic or splenic masses. The adrenal glands, pancreas, and right kidney are unremarkable. No hydronephrosis. Hysterectomy. The bladder is within normal limits. Multiple left peripelvic cysts. Left-sided nephrolithiasis. No retroperitoneal lymphadenopathy. The appendix is not identified and likely surgically absent. A few colonic diverticula. No bowel wall thickening or obstruction. 5 mm hypodense lesion within the left hepatic lobe is too small to characterize. IMPRESSION: 1. Status post recent cholecystectomy. Trace fluid at the gallbladder fossa and trace perihepatic fluid. This is nonspecific but is likely due to the recent postoperative change. A bile leak is considered less likely but not entirely excluded. 2. There is also a small amount of fluid within the deep pelvis demonstrating small hematocrit levels suggestive of blood products. This can also be seen the setting of postoperative change. 3. No bowel wall thickening or obstruction. 4. Colonic diverticulosis. 5. Left-sided nephrolithiasis. No ureteral stones. No hydronephrosis. 6. Bilateral lower lobe densities are nonspecific but favor atelectasis. Electronically signed by: Gustavo Verdugo M.D. 09/16/2017 5:01 PM Dictated Date/Time: 09/16/2017 4:46 PM
[2017-09-16] MEDS ORDERED: HydrALAZINE HCL 20 MG/ML VIAL IV. STA ×2 (17:44→19:01)
--- NOTE | 2017-09-16 17:54 | Surgery Consultation ---
Consultation Date of Consultation: Sep 16, 2017. Attending Physician: History of Present Illness The patient is a 57 year old female who presents to the Emergency Room with complaints of constant, sharp RQ abdominal a/w RT shoulder pain s/p lap choly for chronic cholecystitis and cholelithiasis, Post-op day#1. Pain began yesterday evening after coming home from hospital, pt unable to sleep or lay down flat. Denies diarrhea, vomiting, fevers, chills. Called EMS this afternoon bc she was unable to tolerate pain any further. Currently pain is poorly controlled on 200mcg fentanyl given during transit. I saw pt at ER, I reviewed pt's H/P with pt, pt is still have some right shoulder pain and RUQ pain, Past Medical/Surgical History Medical Problems: (1) Headache Status: Acute Family History Heart disease Hypertension Kidney disease Kidney stones Seizures Social History Smoking Status: Former Smoker Smokeless Tobacco Use: No Alcohol Use: none Drug Use: none Marital Status: Housing Status: lives with significant other Occupation Status: employed Allergies Coded Allergies: Naproxen (Verified Allergy, Unknown, NAUSEA AND VOMITNNG, 09/15/17) Sulfamethoxazole w/Trimethoprim (Verified Allergy, Unknown, ITCHING, ) Home Medications Scheduled Atorvastatin (Lipitor), 10 MG PO DAILY Losartan Potassium (Losartan Potassium), 25 MG PO DAILY Pantoprazole (Protonix), 40 MG PO QAM Scheduled PRN Ibuprofen (Advil), 600 MG PO Q4-6HRS PRN for Pain Oxycodone/Acetaminophen 5MG/325MG (Percocet 5MG/325MG), 1 TABLET PO Q4H PRN for Pain Polyethylene (Polyethylene Glycol 3350), 17 GM PO DAILY PRN for Constipation Current Inpatient Medications Current Inpatient Medications Medications (Trade) Dose Ordered Sig/Nomi Route Start Time Stop Time Status Last Admin Dose Admin Ioversol (Optiray 320) 125 ml UD PRN IV 09/16/17 15:30 09/20/17 15:29 Hydromorphone HCl (Dilaudid Inj) 0.5 mg Q20M PRN IV 09/16/17 16:15 09/30/17 16:14 09/16/17 16:17 0.5 MG Review of Systems Constitutional: No fever, No chills, No sweats, No weight loss, No weakness, No fatigue, No problem reported Eyes: No worsening of vision, No eye pain, No redness, No discharge, No diplopia, No problem reported ENT: No hearing loss, No unusual epistaxis, No nasal symptoms, No sore throat, No tinnitus, No dental problems, No trouble swallowing, No problem reported Respiratory: No cough, No sputum, No wheezing, No shortness of breath, No dyspnea on exertion, No dyspnea at rest, No hemoptysis, No problem reported Cardiovascular: No chest pain, No orthopnea, No PND, No edema, No claudication , No palpitations, No problem reported Abdomen: + pain, + nausea, No vomiting, No diarrhea, No constipation, No GI bleeding, No problem reported Musculoskeletal: No joint pain, No muscle pain, No swelling, No calf pain, No problem reported Genitourinary - Female: No dysuria, No urinary frequency, No urinary urgency, No urinary incontinence, No urinary retention, No hematuria, No dysmenorrhea, No menorrhagia, No metrorrhagia, No rash, No vaginal bleeding, No vaginal discharge, No vaginal itching, No vulvodynia, No , No problem reported Neurologic: No memory loss, No paralysis, No weakness, No numbness/tingling, No vertigo, No balance problems, No problem reported Psychiatric: No depression symptoms, No anhedonism, No anxiety, No insomnia, No substance abuse, No problem reported Endocrine: No fatigue, No excessive thirst, No excessive urination, No problem reported Hematologic / Lymphatic: No abnormal bleeding/bruising, No clotting problems, No swollen lymph nodes, No night sweats, No problem reported Integumentary: No rash, No itch, No new/changing skin lesions, No color change , No bleeding, No problem reported Allergic / Immunologic: No environmental allergies, No seasonal allergies, No pet sensitivities, No food allergies, No hives, No frequent infections, No poor healing, No prolonged convalescence, No problem reported Physical Exam Date Time Temp Pulse Resp B/P (MAP) Pulse Ox O2 Delivery O2 Flow Rate FiO2 09/16/17 17:14 77 16 206/106 96 Room Air 09/16/17 16:19 75 18 224/106 95 Room Air 09/16/17 15:08 82 16 215/107 95 Room Air 09/16/17 14:28 36.7 66 15 210/113 93 Room Air 09/16/17 14:26 72 General Appearance: WD/WN, + mild distress Head: normocephalic Eyes: normal inspection ENT: normal ENT inspection Neck: supple, no JVD Respiratory/Chest: chest non-tender, lungs clear Cardiovascular: regular rate, rhythm, no edema, no gallop, no JVD, no murmur Abdomen/GI: normal bowel sounds, soft, no organomegaly, no pulsatile mass (all incisions are intact ), + tenderness (at RUQ , no rebound pain) Extremities/Musculoskelatal: normal inspection, no calf tenderness, normal capillary refill Neurologic/Psych: no motor/sensory deficits, alert, normal mood/affect Skin: normal color, warm/dry, no rash Laboratory Results Last 24 Hours Test 09/16/17 14:48 White Blood Count 10.76 K/uL Red Blood Count 4.43 M/uL Hemoglobin 13.1 g/dL Hematocrit 38.1 % Mean Corpuscular Volume 86.0 fL Mean Corpuscular Hemoglobin 29.6 pg Mean Corpuscular Hemoglobin Concent 34.4 g/dl Platelet Count 160 K/uL Mean Platelet Volume 9.0 fL Neutrophils (%) (Auto) 79.6 % Lymphocytes (%) (Auto) 12.1 % Monocytes (%) (Auto) 7.9 % Eosinophils (%) (Auto) 0.1 % Basophils (%) (Auto) 0.1 % Neutrophils # (Auto) 8.57 K/uL Lymphocytes # (Auto) 1.30 K/uL Monocytes # (Auto) 0.85 K/uL Eosinophils # (Auto) 0.01 K/uL Basophils # (Auto) 0.01 K/uL RDW Standard Deviation 41.2 fL RDW Coefficient of Variation 13.2 % Immature Granulocyte % (Auto) 0.2 % Immature Granulocyte # (Auto) 0.02 K/uL Sodium Level 139 mmol/L Potassium Level 3.9 mmol/L Chloride Level 108 mmol/L Carbon Dioxide Level 24 mmol/L Anion Gap 7.0 mmol/L Blood Urea Nitrogen 15 mg/dl Creatinine 0.81 mg/dl Est Creatinine Clear Calc Drug Dose 80.7 ml/min Estimated GFR () 94.8 Estimated GFR (Non- 81.8 BUN/Creatinine Ratio 18.2 Random Glucose 139 mg/dl Calcium Level 8.5 mg/dl Total Bilirubin 1.0 mg/dl Direct Bilirubin 0.4 mg/dl Aspartate Amino Transf (AST/SGOT) 102 U/L Alanine Aminotransferase (ALT/SGPT) 118 U/L Alkaline Phosphatase 141 U/L Total Protein 7.2 gm/dl Albumin 3.7 gm/dl Lipase 90 U/L Assessment & Plan FINDINGS: Bilateral lower lobe densities are nonspecific but favor atelectasis. No pneumoperitoneum. No pneumatosis. Patient is status post recent cholecystectomy. Trace fluid at the gallbladder fossa and trace perihepatic fluid is noted. Small amount of fluid within the pelvic cul-de-sac which demonstrates slightly hyperdense fluid posteriorly suggestive of a hematocrit level. This could represent postoperative fluid and/or a small amount of blood products. No hepatic or splenic masses. The adrenal glands, pancreas, and right kidney are unremarkable. No hydronephrosis. Hysterectomy. The bladder is within normal limits. Multiple left peripelvic cysts. Left-sided nephrolithiasis. No retroperitoneal lymphadenopathy. The appendix is not identified and likely surgically absent. A few colonic diverticula. No bowel wall thickening or obstruction. 5 mm hypodense lesion within the left hepatic lobe is too small to characterize. IMPRESSION: 1. Status post recent cholecystectomy. Trace fluid at the gallbladder fossa and trace perihepatic fluid. This is nonspecific but is likely due to the recent postoperative change. A bile leak is considered less likely but not entirely excluded. 2. There is also a small amount of fluid within the deep pelvis demonstrating small hematocrit levels suggestive of blood products. This can also be seen the setting of postoperative change. 3. No bowel wall thickening or obstruction. 4. Colonic diverticulosis. 5. Left-sided nephrolithiasis. No ureteral stones. No hydronephrosis. 6. Bilateral lower lobe densities are nonspecific but favor atelectasis. Assessment: pt is a 57 year old female who presents to ER with S/P laparoscopic cholecystectomy POD 1 right shoulder and RUQ pain, IMP: post- op pain, biliary leak? Plan, admit to hospital, control pain, MRCP tomorrow, repeat labs in am, will , pt agrees with the plan, I answered all questions,
[2017-09-16] MEDS ORDERED: ONDANSETRON INJ 2 MG/ML 2 ML VIAL IV PRN (18:00)
[2017-09-16] MEDS ORDERED: OXYCODONE/ACETAMINOPHEN 5-325 TAB PO PRN (18:00)
[2017-09-16] MEDS ORDERED: ACETAMINOPHEN 325 MG TAB PO PRN (18:00)
[2017-09-16] MEDS ORDERED: PROMETHAZINE HCL INJ 25 MG in SODIUM CHLORIDE 0.9% 50ML 50 ML IV STA (19:01)
[2017-09-16 20:18] LABS: PTT PATIENT 24.3 SECONDS (21.0-31.0)
[2017-09-16 20:31] VITALS: BP 213/95; PULSE 90; TEMP 36.8; O2SAT 95; Ht 167.6 cm; Wt 73.9 kg
[2017-09-16 20:47] VITALS: BP 213/95; PULSE 90; TEMP 36.8; O2SAT 95
[2017-09-16 20:50] VITALS: BP 184/93
[2017-09-16] MEDS ORDERED: D5W AND 1/2NSS + 20MEQ KCL 1,000 ML IV SCH (21:00)
--- NOTE | 2017-09-16 21:58 | Surgery Progress Note ---
Surgery Progress Note Date of Service Sep 16, 2017. Subjective + feeling well pt feels better, less shoulder and RUQ pain, no nausea, no vomiting, no fever, Objective Vital Signs: Date Time Temp Pulse Resp B/P (MAP) Pulse Ox O2 Delivery O2 Flow Rate FiO2 09/16/17 20:50 184/93 (123) 09/16/17 20:47 36.8 90 16 213/95 (134) 95 Room Air 09/16/17 20:31 36.8 90 16 213/95 95 Room Air 09/16/17 19:05 86 18 193/93 98 Room Air 09/16/17 18:07 85 18 224/109 96 Room Air 09/16/17 17:14 77 16 206/106 96 Room Air 09/16/17 16:19 75 18 224/106 95 Room Air 09/16/17 15:08 82 16 215/107 95 Room Air 09/16/17 14:28 36.7 66 15 210/113 93 Room Air 09/16/17 14:26 72 General Appearance: WD/WN, no apparent distress Head: normocephalic Neck: supple, no JVD Respiratory/Chest: chest non-tender, lungs clear Cardiovascular: regular rate, rhythm, no edema, no gallop, no JVD, no murmur Abdomen: normal bowel sounds, non tender, non distended, soft, no organomegaly Incision(s): clean, dry, intact Extremities: normal range of motion, non-tender, normal inspection Laboratory Results: Results Past 24 Hours Test 09/16/17 14:48 Range/Units White Blood Count 10.76 4.8-10.8 K/uL Red Blood Count 4.43 4.2-5.4 M/uL Hemoglobin 13.1 12.0-16.0 g/dL Hematocrit 38.1 37-47 % Mean Corpuscular Volume 86.0 80-100 fL Mean Corpuscular Hemoglobin 29.6 25-34 pg Mean Corpuscular Hemoglobin Concent 34.4 32-36 g/dl Platelet Count 160 130-400 K/uL Mean Platelet Volume 9.0 7.4-10.4 fL Neutrophils (%) (Auto) 79.6 % Lymphocytes (%) (Auto) 12.1 % Monocytes (%) (Auto) 7.9 % Eosinophils (%) (Auto) 0.1 % Basophils (%) (Auto) 0.1 % Neutrophils # (Auto) 8.57 1.4-6.5 K/uL Lymphocytes # (Auto) 1.30 1.2-3.4 K/uL Monocytes # (Auto) 0.85 0.11-0.59 K/uL Eosinophils # (Auto) 0.01 0-0.5 K/uL Basophils # (Auto) 0.01 0-0.2 K/uL RDW Standard Deviation 41.2 36.4-46.3 fL RDW Coefficient of Variation 13.2 11.5-14.5 % Immature Granulocyte % (Auto) 0.2 % Immature Granulocyte # (Auto) 0.02 0.00-0.02 K/uL Prothrombin Time 10.7 9.0-12.0 SECONDS Prothromb Time International Ratio 1.0 0.9-1.1 Activated Partial Thromboplast Time 24.3 21.0-31.0 SECONDS Partial Thromboplastin Ratio 0.9 Sodium Level 139 136-145 mmol/L Potassium Level 3.9 3.5-5.1 mmol/L Chloride Level 108 98-107 mmol/L Carbon Dioxide Level 24 21-32 mmol/L Anion Gap 7.0 3-11 mmol/L Blood Urea Nitrogen 15 7-18 mg/dl Creatinine 0.81 0.60-1.20 mg/dl Est Creatinine Clear Calc Drug Dose 80.7 ml/min Estimated GFR () 94.8 Estimated GFR (Non- 81.8 BUN/Creatinine Ratio 18.2 10-20 Random Glucose 139 70-99 mg/dl Calcium Level 8.5 8.5-10.1 mg/dl Total Bilirubin 1.0 0.2-1 mg/dl Direct Bilirubin 0.4 0-0.2 mg/dl Aspartate Amino Transf (AST/SGOT) 102 15-37 U/L Alanine Aminotransferase (ALT/SGPT) 118 12-78 U/L Alkaline Phosphatase 141 45-117 U/L Total Protein 7.2 6.4-8.2 gm/dl Albumin 3.7 3.4-5.0 gm/dl Lipase 90 73-393 U/L Assessment & Plan pt is doing better, repeat labs in am, will F/U
[2017-09-16 22:37] VITALS: BP 186/83; PULSE 90
[2017-09-16 23:05] VITALS: BP 182/88; PULSE 89; TEMP 37.1; O2SAT 93
[2017-09-16 23:20] VITALS: BP_SYST 184; BP_SYST 187; BP_DIAS 94; BP_DIAS 96
[2017-09-17] VITALS (14 sets, daily range): BP systolic 126–204; BP diastolic 64–99; PULSE 75–84; TEMP 36.6–37.4; O2SAT 92–96
[2017-09-17] MEDS: HYDROmorphone INJ 1 MG/ML SYR IV PRN ×3 (01:09→09:24)
[2017-09-17] MEDS ORDERED: NURSING VERBAL MED ORDER ONE (04:00)
[2017-09-17] MEDS ORDERED: LOSARTAN POTASSIUM 25 MG TAB PO ONE ×2 (04:16→06:47)
[2017-09-17] MEDS ORDERED: HydrALAZINE HCL 20 MG/ML VIAL ONE (04:24)
[2017-09-17] MEDS ORDERED: HydrALAZINE HCL 20 MG/ML VIAL IV. PRN (04:30)
[2017-09-17 05:58] LABS: BASO % 0.1 %; BASO ABS # 0.01 K/uL (0-0.2); EOS % 0.1 %; EOS ABS # 0.01 K/uL (0-0.5); HEMATOCRIT 38.8 % (37-47); HEMOGLOBIN 13.2 g/dL (12.0-16.0); IG# 0.03 K/uL (0.00-0.02); LYMPH ABS # 1.75 K/uL (1.2-3.4); MEAN CELL VOLUME 86.4 fL (80-100); MEAN CORPUSCULAR HEMOGLOBIN 29.4 pg (25-34); MEAN PLATELET VOLUME 8.9 fL (7.4-10.4); MONO % 9.8 %; MONO ABS # 1.14 K/uL (0.11-0.59); NEUT % 74.7 %; NEUT ABS # 8.72 K/uL (1.4-6.5); PLATELET COUNT 178 K/uL (130-400); RED CELL DISTRIBUTION WIDTH CV 13.5 % (11.5-14.5); RED CELL DISTRIBUTION WIDTH SD 42.5 fL (36.4-46.3); WHITE BLOOD COUNT 11.66 K/uL (4.8-10.8)
[2017-09-17] MEDS ORDERED: POLYETHYLENE (MIRALAX) 17 GM PACK PO PRN (06:15)
[2017-09-17 06:29] LABS: ALBUMIN 3.5 gm/dl (3.4-5.0); CALCIUM 8.8 mg/dl (8.5-10.1); CREATININE 0.7 mg/dl (0.60-1.20); POTASSIUM 3.9 mmol/L (3.5-5.1)
[2017-09-17 06:32] LABS: TOTAL PROTEIN 7.4 gm/dl (6.4-8.2)
[2017-09-17 06:46] LABS: HEMOGLOBIN A1C 5.7 % (4.5-5.6)
[2017-09-17] MEDS ORDERED: NSS + 20MEQ KCL 1000ML 1,000 ML IV SCH (07:30)
[2017-09-17] MEDS: PANTOprazole SOD 40 MG TAB PO SCH (07:45)
[2017-09-17] MEDS ORDERED: LORAZEPAM 2 MG/ML 1 ML VIAL IV PRN (07:45)
--- NOTE | 2017-09-17 08:04 | INTERNAL MEDICINE CONSULTATION ---
DATE OF CONSULTATION: 09/17/2017 PRIMARY CARE PHYSICIAN: Dr. Doss. Patient seen at request of Dr. Rodriguez for medical management. HISTORY OF PRESENT ILLNESS: Medical history significant for hypertension, chronic cholecystitis status post recent cholecystectomy, past tobacco abuse, urolithiasis, GERD. Patient underwent laparoscopic cholecystectomy for chronic cholecystitis about 2 days ago at same-day surgery. Postop, patient noted achy R shoulder and right neck pain separate from achy right upper quadrant pain. Worsening pain at home. The patient returned to the hospital yesterday. Admitted under surgery service for postop pain and question of biliary leak. Systolic blood pressure was noted to be 200. No unusual headaches, no chest pain, no shortness of breath. MEDICAL HISTORY: As above. SURGERIES: She had cholecystectomy, appendectomy, hysterectomy, tube removal. HOME MEDICATIONS: Include Protonix, MiraLax, atorvastatin, losartan, fluticasone. CURRENT INPATIENT meds: Include metoprolol, losartan, dextrose half normal, Zofran, Tylenol, Percocet, hydromorphone. Hydralazine when necessary ALLERGIES: TO NAPROXEN, BACTRIM. FAMILY HISTORY: Heart disease, stroke, liver cancer, diabetes. PERSONAL AND SOCIAL HISTORY: Past tobacco use. No chronic intake of alcoholic beverages. 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 REVIEW OF SYSTEMS: As per HPI, all 10 systems reviewed. All other ROS negative. PHYSICAL EXAMINATION: VITAL SIGNS: Blood pressure was noted to be 201/99, pulse rate 76, RR 16, temperature 36.7, sats 92 on room air. GENERAL: Noted to be slightly uncomfortable, slightly anxious, no respiratory distress. SKIN: Normal color, warm. HEENT: Crum palpebral conjuctivae. No ptosis. Dry mucosa. NECK: Short, minimal tenderness on the right neck. HEART: Regular rate and rhythm. No murmur. CHEST: Clear to auscultation. No anterior chest wall tenderness. ABDOMEN: Right upper quadrant tenderness, some distention. EXTREMITIES: No edema. No gross deformities. No tenderness, Right shoulder, good range of motion. NEUROLOGIC: Coherent. No gross focality. LABORATORY DATA: Hemoglobin 13.2, hematocrit 38.8, white cell count 11.6, platelets 178. Sodium 137, potassium 3.9,, chloride 105, CO2 25, BUN 10, creatinine 0.7, glucose noted to be 122. AST 100, ALT 146, alkaline phosphatase 159. Hemoglobin A1c was 5.7 ASSESSMENT: 1. Hypertensive urgency multifactorial : Postop cholecystectomy abdominal pain/R shoulder and neck pain likely musculoskeletal. anxiety 2. Hyperglycemia 2 to dextrose containing IVF possible prediabetes, HgA1c noted to be 5.7. 3. Past tobacco abuse. RECOMMENDATIONS: Analgesia. No NSAIDs Titrate home Losartan Anxiolytic prn Plain x-rays of the neck, right shoulder. change dextrose containing IV fluid to NSS while n.p.o. sips. Agree with Lovenox subQ for DVT prophylaxis. Thank you much for this consultation. Dr. J Carlos Nogueira will follow the patient's progress. [facility]
[2017-09-17] MEDS: ENOXAPARIN 40 MG/0.4 ML SYR SQ SCH (08:12)
--- NOTE | 2017-09-17 08:16 | DIAGNOSTIC IMAGING REPORT ---
R SHOULDER MIN 2 VIEWS ROUTINE CLINICAL HISTORY: R shoulder pain COMPARISON: None. DISCUSSION: No fractures or dislocations are visualized. There are no erosive or destructive changes. The bones are mildly osteopenic IMPRESSION: No fractures or dislocations identified. There are no visible periarticular calcifications Electronically signed by: Alec Boland M.D. 09/17/2017 8:14 AM Dictated Date/Time: 09/17/2017 8:14 AM
--- NOTE | 2017-09-17 08:17 | DIAGNOSTIC IMAGING REPORT ---
CERVICAL SPINE 2 OR 3 VIEWS CLINICAL HISTORY: neck pain COMPARISON STUDY: No previous studies for comparison. FINDINGS: The prevertebral soft tissues are normal. No fractures or subluxations are visualized. There are mild degenerative changes the C5-6 level. The bones appear mildly osteopenic IMPRESSION: Mild degenerative changes at the C5-6 level. No fractures or subluxations identified. Electronically signed by: Alec Boland M.D. 09/17/2017 8:15 AM Dictated Date/Time: 09/17/2017 8:15 AM
--- NOTE | 2017-09-17 08:58 | Gastrointestinal Consultation ---
Gastrointestinal Consultation Date of Consultation: Sep 17, 2017 Attending Physician: Dr. Rodriguez Consulting Physician: Dr. Gladis Hernandez Reason for Consultation: Question Bile Leak History of Present Illness Patient is a 57 year old female patient of Dr. Doss with a hx of HTN and hyperlipidemia who underwent lap choley by Dr. Rodriguez on 09/15/17. On awakening from surgery, she had right shoulder and arm pain. It improved and she was released from same day surgery. At she had pain "all night." Yesterday she had a few hours when the pain "eased up," but that night, she had severe pain in the arm, shoulder pain returned as well as new pain in the entire right side of the abdomen. This pain has continued and she is getting on slight improvement in the pain with IV narcotics. She has nausea, no vomiting. No fevers. Dr. Gladis Hernandez has been called about the patient. He ordered a stat HIDA scan and plans for ERCP this afternoon if the HIDA shows a bile leak. Past Medical/Surgical History Medical Problems: (1) Headache Status: Acute (2) Postoperative abdominal pain Status: Acute (3) Severe hypertension Status: Acute Past Medical History: 1. HTN 2. Hyperlipidemia Past Surgical History: 1. Appendectomy 2. ANDREW BSO 3. Shoulder surgery 4. Colonoscopy 5. Lap Cholecystectomy Family History Heart disease Hypertension Kidney disease Kidney stones Seizures Social History Smoking Status: Former Smoker Alcohol Use: occasionally Drug Use: none Marital Status: Housing Status: lives with significant other Occupation Status: employed Allergies Coded Allergies: Naproxen (Verified Allergy, Unknown, NAUSEA AND VOMITNNG, 09/15/17) Sulfamethoxazole w/Trimethoprim (Verified Allergy, Unknown, ITCHING, ) Current Medications Home Meds and Scripts Medications Dose Route/Sig Max Daily Dose Days Date Category Dose Instructions Lipitor (Atorvastatin Calcium) 10 Mg Tab 10 Mg PO DAILY 09/16/17 Reported Losartan Potassium 25 Mg Tab 25 Mg PO DAILY 09/16/17 Reported Polyethylene Glycol 3350 (Polyethylene) 527 Gm Soln 17 Gm PO DAILY PRN 09/16/17 Reported DISSOLVE 17 GRAMS IN 8 OUNCES OF WATER OR JUICE AND DRINK DAILY Percocet 5MG/325MG (Oxycodone/Acetaminophen) Tab 1 Tablet PO Q4H PRN 09/15/17 Rx Advil (Ibuprofen) 200 Mg Tab 600 Mg PO Q4-6HRS PRN 09/09/17 Reported Protonix (Pantoprazole Sodium) 40 Mg Tab 40 Mg PO QAM 06/29/14 Reported Review of Systems Constitutional: No fever, No chills, No sweats, No weight loss, No weakness Eyes: No eye pain, No redness ENT: No sore throat, No trouble swallowing, No pain on swallowing Respiratory: No cough, No wheezing, No shortness of breath, No dyspnea on exertion Cardiac: No chest pain, No edema, No palpitations Abdomen: + see HPI, + pain, + nausea Neuro: No memory loss, No weakness, No numbness/tingling, No vertigo, No balance problems Psych: No depression symptoms, No anxiety, No insomnia Heme: No abnormal bleeding/bruising, No night sweats Endo: No excessive thirst, No excessive urination Skin: No rash, No itch, No new/changing skin lesions, No jaundice Physical Exam Date Time Temp Pulse Resp B/P (MAP) Pulse Ox O2 Delivery O2 Flow Rate FiO2 09/17/17 07:54 37.1 84 18 128/74 (92) 94 Room Air 09/17/17 07:15 Room Air 09/17/17 04:56 161/84 (109) 09/17/17 04:26 201/99 (133) 09/17/17 03:35 37.0 76 16 204/99 (134) 92 Room Air 189/84 (119) 09/16/17 23:20 187/94 (125) 184/96 (125) 09/16/17 23:20 Room Air 09/16/17 23:05 37.1 89 16 182/88 (119) 93 Room Air 09/16/17 22:37 90 186/83 (117) 09/16/17 20:50 184/93 (123) 09/16/17 20:47 36.8 90 16 213/95 (134) 95 Room Air 09/16/17 20:31 36.8 90 16 213/95 95 Room Air 09/16/17 19:05 86 18 193/93 98 Room Air 09/16/17 18:07 85 18 224/109 96 Room Air 09/16/17 17:14 77 16 206/106 96 Room Air 09/16/17 16:19 75 18 224/106 95 Room Air 09/16/17 15:08 82 16 215/107 95 Room Air 09/16/17 14:28 36.7 66 15 210/113 93 Room Air 09/16/17 14:26 72 General Appearance: no apparent distress Eyes: normal inspection, EOMI ENT: pharynx normal Neck: supple, no adenopathy, thyroid normal Respiratory/Chest: chest non-tender, lungs clear, normal breath sounds, no accessory muscle use Cardiovascular: regular rate, rhythm, no JVD, no murmur Abdomen: normal bowel sounds, soft, no organomegaly, + pertinent finding (very tender over the entire right side of the abdomen) Extremities: normal inspection, no pedal edema, normal capillary refill Neurologic/Psych: alert, normal mood/affect, oriented x 3 Skin: normal color, no jaundice, warm/dry, no rash Laboratory Results Last 24 Hours Test 09/16/17 14:48 09/17/17 05:37 White Blood Count 10.76 K/uL 11.66 K/uL Red Blood Count 4.43 M/uL 4.49 M/uL Hemoglobin 13.1 g/dL 13.2 g/dL Hematocrit 38.1 % 38.8 % Mean Corpuscular Volume 86.0 fL 86.4 fL Mean Corpuscular Hemoglobin 29.6 pg 29.4 pg Mean Corpuscular Hemoglobin Concent 34.4 g/dl 34.0 g/dl Platelet Count 160 K/uL 178 K/uL Mean Platelet Volume 9.0 fL 8.9 fL Neutrophils (%) (Auto) 79.6 % 74.7 % Lymphocytes (%) (Auto) 12.1 % 15.0 % Monocytes (%) (Auto) 7.9 % 9.8 % Eosinophils (%) (Auto) 0.1 % 0.1 % Basophils (%) (Auto) 0.1 % 0.1 % Neutrophils # (Auto) 8.57 K/uL 8.72 K/uL Lymphocytes # (Auto) 1.30 K/uL 1.75 K/uL Monocytes # (Auto) 0.85 K/uL 1.14 K/uL Eosinophils # (Auto) 0.01 K/uL 0.01 K/uL Basophils # (Auto) 0.01 K/uL 0.01 K/uL RDW Standard Deviation 41.2 fL 42.5 fL RDW Coefficient of Variation 13.2 % 13.5 % Immature Granulocyte % (Auto) 0.2 % 0.3 % Immature Granulocyte # (Auto) 0.02 K/uL 0.03 K/uL Prothrombin Time 10.7 SECONDS Prothromb Time International Ratio 1.0 Activated Partial Thromboplast Time 24.3 SECONDS Partial Thromboplastin Ratio 0.9 Sodium Level 139 mmol/L 136 mmol/L Potassium Level 3.9 mmol/L 3.9 mmol/L Chloride Level 108 mmol/L 105 mmol/L Carbon Dioxide Level 24 mmol/L 25 mmol/L Anion Gap 7.0 mmol/L 6.0 mmol/L Blood Urea Nitrogen 15 mg/dl 10 mg/dl Creatinine 0.81 mg/dl 0.70 mg/dl Est Creatinine Clear Calc Drug Dose 80.7 ml/min 93.3 ml/min Estimated GFR () 94.8 113.0 Estimated GFR (Non- 81.8 97.5 BUN/Creatinine Ratio 18.2 14.0 Random Glucose 139 mg/dl 122 mg/dl Calcium Level 8.5 mg/dl 8.8 mg/dl Total Bilirubin 1.0 mg/dl 1.3 mg/dl Direct Bilirubin 0.4 mg/dl Aspartate Amino Transf (AST/SGOT) 102 U/L 100 U/L Alanine Aminotransferase (ALT/SGPT) 118 U/L 146 U/L Alkaline Phosphatase 141 U/L 159 U/L Total Protein 7.2 gm/dl 7.4 gm/dl Albumin 3.7 gm/dl 3.5 gm/dl Lipase 90 U/L 81 U/L Estimated Average Glucose 117 mg/dl Hemoglobin A1c 5.7 % Magnesium Level 2.1 mg/dl Globulin 3.9 gm/dl Albumin/Globulin Ratio 0.9 Impression Patient is a 57 year old female with suspected post cholecystectomy bile leak. Plan 1. STAT HIDA this morning. 2. ERCP with CBD stent placement today if HIDA is positive for a bile leak. 3. Keep pt NPO. Addendum: HIDA scan is positive for a Bile Leak. OR unable to provide an estimated time for the ERCP case. Based on this, recommend that the pt be transferred to [place] for ERCP. ATTESTATION: I have performed a history and physical examination of this patient and reviewed the electronic record. Specifically on physical examination there is moderate abdominal tenderness. I have discussed the case with Kristen SANTANA. The above note reflects my findings, conclusions, and recommendations. Colton Weaver MD
[2017-09-17] MEDS ORDERED: METOPROLOL TARTRATE 25 MG TAB PO SCH (09:00)
[2017-09-17] MEDS ORDERED: HYDROmorphone INJ 1 MG/ML SYR IV STA (09:20)
[2017-09-17] MEDS ORDERED: LORAZEPAM INJ 0.5 MG in SYRINGE 0.75 ML IV PRN (09:45)
[2017-09-17] MEDS ORDERED: CYCLOBENZAPRINE HCL 5 MG TAB PO PRN (10:00)
--- NOTE | 2017-09-17 11:20 | DIAGNOSTIC IMAGING REPORT ---
NUCLEAR HEPATOBILIARY SCAN CLINICAL HISTORY: Postoperative right upper quadrant abdominal pain. Clinical concern for bile leak. COMPARISON STUDY: Abdominal CT dated 09/16/2017. TECHNIQUE: Dynamic images of the liver and anterior abdomen were obtained every 5 minutes for a total of 30 minutes following the IV administration of 5.7mCi of technetium 99m Choletec. FINDINGS: The hepatobiliary scan shows prompt and homogeneous hepatic uptake. There is visualized activity within the intra and extrahepatic biliary tree at 10 minutes. There is pooling of tracer identified in the gallbladder fossa and tracking below the liver. This is not located within bowel loops and is consistent with bile leak. IMPRESSION: Findings are consistent with bile leak. Electronically signed by: Ramy Sparrow M.D. 09/17/2017 11:19 AM Dictated Date/Time: 09/17/2017 11:16 AM
--- NOTE | 2017-09-17 13:13 | Surgery Progress Note ---
Surgery Progress Note Date of Service Sep 17, 2017. Subjective + feeling well pt feels better, pt had HIDA scan today which showed- biliary leak, pt denies fever, no nausea, no vomiting, Objective Vital Signs: Date Time Temp Pulse Resp B/P (MAP) Pulse Ox O2 Delivery O2 Flow Rate FiO2 09/17/17 11:57 36.7 76 18 195/84 (121) 93 Room Air 09/17/17 10:17 94 Room Air 09/17/17 07:54 37.1 84 18 128/74 (92) 94 Room Air 09/17/17 07:15 Room Air 09/17/17 04:56 161/84 (109) 09/17/17 04:26 201/99 (133) 09/17/17 03:35 37.0 76 16 204/99 (134) 92 Room Air 189/84 (119) 09/16/17 23:20 187/94 (125) 184/96 (125) 09/16/17 23:20 Room Air 09/16/17 23:05 37.1 89 16 182/88 (119) 93 Room Air 09/16/17 22:37 90 186/83 (117) 09/16/17 20:50 184/93 (123) 09/16/17 20:47 36.8 90 16 213/95 (134) 95 Room Air 09/16/17 20:31 36.8 90 16 213/95 95 Room Air 09/16/17 19:05 86 18 193/93 98 Room Air 09/16/17 18:07 85 18 224/109 96 Room Air 09/16/17 17:14 77 16 206/106 96 Room Air 09/16/17 16:19 75 18 224/106 95 Room Air 09/16/17 15:08 82 16 215/107 95 Room Air 09/16/17 14:28 36.7 66 15 210/113 93 Room Air 09/16/17 14:26 72 General Appearance: WD/WN, no apparent distress Head: normocephalic Neck: supple, no JVD Respiratory/Chest: chest non-tender, lungs clear Cardiovascular: regular rate, rhythm, no edema, no gallop, no JVD, no murmur Abdomen: normal bowel sounds, non distended, soft, no organomegaly, + tenderness (at right side abdomen, no rebound pain, ) Incision(s): clean, dry, intact Extremities: normal range of motion, non-tender, normal inspection Laboratory Results: Results Past 24 Hours Test 09/16/17 14:48 09/17/17 05:37 Range/Units White Blood Count 10.76 11.66 4.8-10.8 K/uL Red Blood Count 4.43 4.49 4.2-5.4 M/uL Hemoglobin 13.1 13.2 12.0-16.0 g/dL Hematocrit 38.1 38.8 37-47 % Mean Corpuscular Volume 86.0 86.4 80-100 fL Mean Corpuscular Hemoglobin 29.6 29.4 25-34 pg Mean Corpuscular Hemoglobin Concent 34.4 34.0 32-36 g/dl Platelet Count 160 178 130-400 K/uL Mean Platelet Volume 9.0 8.9 7.4-10.4 fL Neutrophils (%) (Auto) 79.6 74.7 % Lymphocytes (%) (Auto) 12.1 15.0 % Monocytes (%) (Auto) 7.9 9.8 % Eosinophils (%) (Auto) 0.1 0.1 % Basophils (%) (Auto) 0.1 0.1 % Neutrophils # (Auto) 8.57 8.72 1.4-6.5 K/uL Lymphocytes # (Auto) 1.30 1.75 1.2-3.4 K/uL Monocytes # (Auto) 0.85 1.14 0.11-0.59 K/uL Eosinophils # (Auto) 0.01 0.01 0-0.5 K/uL Basophils # (Auto) 0.01 0.01 0-0.2 K/uL RDW Standard Deviation 41.2 42.5 36.4-46.3 fL RDW Coefficient of Variation 13.2 13.5 11.5-14.5 % Immature Granulocyte % (Auto) 0.2 0.3 % Immature Granulocyte # (Auto) 0.02 0.03 0.00-0.02 K/uL Prothrombin Time 10.7 9.0-12.0 SECONDS Prothromb Time International Ratio 1.0 0.9-1.1 Activated Partial Thromboplast Time 24.3 21.0-31.0 SECONDS Partial Thromboplastin Ratio 0.9 Sodium Level 139 136 136-145 mmol/L Potassium Level 3.9 3.9 3.5-5.1 mmol/L Chloride Level 108 105 98-107 mmol/L Carbon Dioxide Level 24 25 21-32 mmol/L Anion Gap 7.0 6.0 3-11 mmol/L Blood Urea Nitrogen 15 10 7-18 mg/dl Creatinine 0.81 0.70 0.60-1.20 mg/dl Est Creatinine Clear Calc Drug Dose 80.7 93.3 ml/min Estimated GFR () 94.8 113.0 Estimated GFR (Non- 81.8 97.5 BUN/Creatinine Ratio 18.2 14.0 10-20 Random Glucose 139 122 70-99 mg/dl Calcium Level 8.5 8.8 8.5-10.1 mg/dl Total Bilirubin 1.0 1.3 0.2-1 mg/dl Direct Bilirubin 0.4 0-0.2 mg/dl Aspartate Amino Transf (AST/SGOT) 102 100 15-37 U/L Alanine Aminotransferase (ALT/SGPT) 118 146 12-78 U/L Alkaline Phosphatase 141 159 45-117 U/L Total Protein 7.2 7.4 6.4-8.2 gm/dl Albumin 3.7 3.5 3.4-5.0 gm/dl Lipase 90 81 73-393 U/L Estimated Average Glucose 117 mg/dl Hemoglobin A1c 5.7 4.5-5.6 % Magnesium Level 2.1 1.8-2.4 mg/dl Globulin 3.9 2.5-4.0 gm/dl Albumin/Globulin Ratio 0.9 0.9-2 Assessment & Plan pt is doing better, repeat labs in am, will F/U 09/17/2017 S/P laparoscopic cholecystectomy, pod 2 HIDA scan - biliary leak, D/W GI DR. toth who recommend to do ERCP first, pt will have ERCP today afternoon, I inform pt about the plan, D/W benefits, risks and alternatives of the ERCP, and also I inform pt, I will F/U pt closely after ERCP, if pt's symptom is not improved after 2-3 days, I will do diagnostic laparoscopy, pt understood, she agrees with the plan, I answered all questions, pt is doing better, repeat labs in am, will F/U
[2017-09-17] MEDS ORDERED: INDOMETHACIN 50 MG SUPP PR SCH (13:30)
[2017-09-17] MEDS ORDERED: ROCURONIUM BROMIDE 10 MG/ML 5 ML VIAL IV ONE (14:01)
[2017-09-17] MEDS ORDERED: LIDOCAINE HCL 2% 2 ML VIAL (20MG/ML) ONE (14:01)
[2017-09-17] MEDS ORDERED: PROPOFOL IV EMULSION 10 MG/ML 20 ML VIAL IV ONE (14:01)
[2017-09-17] MEDS ORDERED: MIDAZOLAM HCL 1 MG/ML 2ML VIAL ONE (14:02)
[2017-09-17] MEDS ORDERED: FENTANYL CITRATE INJ 50 MCG/1 ML 2 ML VIAL ONE (14:02)
[2017-09-17] MEDS ORDERED: INDOMETHACIN 50 MG SUPP PR ONE (14:15)
[2017-09-17] MEDS ORDERED: ONDANSETRON INJ 2 MG/ML 2 ML VIAL ONE (15:05)
[2017-09-17] MEDS ORDERED: DEXAMETHASONE SOD INJ 4 MG/ML VIAL ONE (15:05)
--- NOTE | 2017-09-17 15:05 | Discharge Instructions ---
Discharge Instructions Date of Service Sep 17, 2017. Admission Reason for Admission: Post-Operative Pain Discharge Discharge Diagnosis / Problem: same, post op bile leak Discharge Goals Goal(s): Decrease discomfort, Improve function Activity Recommendations Activity Limitations: as noted below No heavy lifting over 20 pounds for 3-4 weeks No strenuous activity until cleared by surgeon No submerging incisions underwater for 2 weeks (no bathing, swimming, or hot tubs) No driving while taking narcotic pain medication or until you are pain free . Instructions / Follow-Up Instructions / Follow-Up You may shower when you get home. Take steri strips off incisions 7 days post op. Walking and light activity is encouraged Continue prescription for pain medication as needed Follow-up in surgical office in 1 week, please call office at [phone] to make an appointment Current Hospital Diet Patient's current hospital diet: Discharge Diet Recommended Diet: Regular Diet, Low Fat Diet Pending Studies Studies pending at discharge: no Laboratory Results Hemoglobin A1c Test 09/17/17 05:37 Range/Units Estimated Average Glucose 117 mg/dl Hemoglobin A1c 5.7 H 4.5-5.6 % Medical Emergencies . Who to Call and When: Medical Emergencies: If at any time you feel your situation is an emergency, please call 911 immediately. . Non-Emergent Contact Non-Emergency issues call your: Primary Care Provider, Surgeon Call Non-Emergent contact if: you have a fever, temperature is above 101, your pain is not controlled, your pain is worsening, your pain is unusual for you, wound has increased drainage, wound has increased redness, wound has increased pain . "Provider Documentation" section prepared by Julia Ibrahim. . VTE Core Measure Inpt VTE Proph given/why not?: SCD's
[2017-09-17] MEDS ORDERED: FENTANYL CITRATE INJ 50 MCG/1 ML 2 ML VIAL IV PRN (15:30)
[2017-09-17] MEDS ORDERED: EpHEDrine SULFATE INJ 50 MG/ML AMP IV PRN (15:30)
[2017-09-17] MEDS ORDERED: NALOXONE HCL 0.4 MG/1 ML VIAL/CARP IV PRN (15:30)
[2017-09-17] MEDS ORDERED: ATROPINE SULFATE 0.1 MG/ML 5ML SYR IV PRN (15:30)
[2017-09-17] MEDS ORDERED: FLUMAZENIL 0.1 MG/1 ML 10 ML VIAL IV PRN (15:30)
[2017-09-17] MEDS ORDERED: PROMETHAZINE HCL INJ 12.5 MG in SODIUM CHLORIDE 0.9% 50ML 50 ML IV PRN (15:30)
[2017-09-17] MEDS ORDERED: ONDANSETRON INJ 2 MG/ML 2 ML VIAL IV PRN (15:30)
[2017-09-17] MEDS ORDERED: LABETALOL HCL IV 5 MG/ML 20ML IV PRN (15:30)
--- NOTE | 2017-09-17 15:34 | GI REPORT ---
Procedure Date: 09/17/2017 1:50 PM Procedure: ERCP Indications: Treatment of bile leak, Postop exam: Laparoscopic cholecystectomy Medicines: General Anesthesia, Indomethacin 100 mg CO, Glucagon 0.5 mg IV Complications: No immediate complications. Estimated blood loss: None Estimated Blood Loss: Estimated blood loss: none. Procedure: Pre-Anesthesia Assessment: - Prior to the procedure, a History and Physical was performed, and patient medications, allergies and sensitivities were reviewed. The patient's tolerance of previous anesthesia was reviewed. - ASA Grade Assessment: III - A patient with severe systemic disease. After obtaining informed consent, the scope was passed under direct vision. Throughout the procedure, the patient's blood pressure, pulse, and oxygen saturations were monitored continuously. The Scope was introduced through the mouth, and advanced to the duodenum and used to inject contrast into the bile duct and ventral pancreatic duct. The ERCP was accomplished without difficulty. The patient tolerated the procedure well. Findings: A expansion envelope maker hand film of the abdomen was obtained. Surgical clips, consistent with a previous cholecystectomy, were seen in the area of the right upper quadrant of the abdomen. The esophagus was successfully intubated under direct vision. The scope was advanced to a normal major papilla in the descending duodenum without detailed examination of the pharynx, larynx and associated structures, and upper GI tract. The upper GI tract was grossly normal. A brief initial attempt to place a guidewire in the bile duct was unsuccessful. A Drake Cook Acrobat 0.035 inch guidewire was passed into the ventral pancreatic duct through a [place] FS 35 Omni sphnterotome. No contrast was injected. The guidewire was left in place and the sphinterotome was removed. The sphinterotome was reloded with a Drake Cook Acrobat 0.035 inch guidewire and was passed alongside the pancreatic guidewire. The bile duct was cannulated with the guidewire followed by the Drake Cook Omni FS 35 sphincterotome. Contrast was injected. Extravasation of contrast originating from the cystic duct was observed. A 7 mm biliary sphincterotomy was made with a monofilament traction (standard) sphincterotome using ERBE electrocautery. There was no post-sphincterotomy bleeding. To discover objects, the biliary tree was swept with a 9 mm balloon starting at the bifurcation. Nothing was found. One Cotton Krishnan 10 Fr by 8 cm plastic stent with a single external flap and a single internal flap was placed into the common bile duct. Bile flowed through the stent. The stent was in good position. The pancreatic guidewire was removed. The total fluoroscopy exposure time was 1 minute and 47 seconds. Impression: - A bile leak was found. - A biliary sphincterotomy was performed. - The biliary tree was swept and nothing was found. - One plastic stent was placed into the common bile duct. Recommendation: - Repeat ERCP in 1 month to remove stent. - Return patient to PACU for observation. Colton Weaver M.D. Colton Weaver MD 09/17/2017 3:34:06 PM This report has been signed electronically. Note Initiated On: 09/17/2017 1:50 PM I attest to the content of the Intraoperative Record and orders documented therein, exceptions below
--- NOTE | 2017-09-17 15:49 | [facility] Operative Report ---
Operative Report Operative Date Sep 17, 2017. Pre-Operative Diagnosis suspected post-cholecystectomy bile duct leak Post-Operative Diagnosis BILE LEAK Procedure(s) Performed endoscopic retrograde cholangiopancreatography, with papillotomy and biliary stent placement Surgeon Dr. Weaver Senior Environmental Consultant Surgeon(s) None Estimated Blood Loss 0ml Findings See Provation report. Extravasation from the cystic duct remnant. Stent placed. Specimens NO SPECIMENS, PER SURGEON Drains None Anesthesia Type General Complication(s) none Disposition Surgical ICU Indications Abdominal pain, bile leak observed on HIDA Description of Procedure See Provation report I attest to the content of the Intraoperative Record and any orders documented therein. Any exceptions are noted below.
[2017-09-17] MEDS ORDERED: GLUCAGON FOR INJ 1 MG VIAL ONE (15:50)
--- NOTE | 2017-09-17 15:59 | Anesthesiology Progress Note ---
Anesthesia Post Op Note Date & Time Sep 17, 2017 at 15:59 Vital Signs Pain Intensity: 0 Vital Signs Past 12 Hours Date Time Temp Pulse Resp B/P (MAP) Pulse Ox O2 Delivery O2 Flow Rate FiO2 09/17/17 15:55 9 19 129/75 94 Room Air 2 Nasal Cannula 09/17/17 15:45 97 18 114/70 92 Room Air 09/17/17 15:35 94 16 135/72 96 Oxymask 10 09/17/17 15:26 37.8 99 16 141/79 97 Oxymask 10 09/17/17 13:30 128/75 (92) 09/17/17 11:57 36.7 76 18 195/84 (121) 93 Room Air 09/17/17 10:17 94 Room Air 09/17/17 07:54 37.1 84 18 128/74 (92) 94 Room Air 09/17/17 07:15 Room Air 09/17/17 04:56 161/84 (109) 09/17/17 04:26 201/99 (133) Notes Mental Status: alert / awake / arousable, participated in evaluation Pt Amnestic to Procedure: Yes Nausea / Vomiting: adequately controlled Pain: adequately controlled Airway Patency, RR, SpO2: stable & adequate BP & HR: stable & adequate Hydration State: stable & adequate Anesthetic Complications: no major complications apparent
[2017-09-17] MEDS ORDERED: D5W AND LACTATED RINGERS 1,000 ML IV SCH (16:00)
--- NOTE | 2017-09-17 16:09 | DIAGNOSTIC IMAGING REPORT ---
ERCP BILIARY DUCTAL CLINICAL HISTORY: Bile leak. COMPARISON STUDY: CT of the abdomen and pelvis September 16, 2007. FLUOROSCOPY TIME: 1 minute and 47 seconds. FINDINGS: 7 fluoroscopic images from ERCP were submitted for interpretation. These images demonstrate contrast extravasation from the cystic duct remnant. These images demonstrate placement of a common bile duct stent which appears appropriately positioned. A pancreatic stent may also be in place. A tiny outpouching of contrast adjacent to the distal common bile duct is noted. This could reflect a diverticulum. IMPRESSION: Fluoroscopic images from ERCP demonstrating extravasation of contrast within the cystic duct remnant consistent with a bile leak. Placement of a common bile duct stent. Electronically signed by: Jean Pierre Watkins M.D. 09/17/2017 4:07 PM Dictated Date/Time: 09/17/2017 4:04 PM
--- NOTE | 2017-09-17 18:11 | Progress Note ---
Internal Med Progress Note Date of Service: Sep 17, 2017. Provider Documentation: SUBJECTIVE: s/p ercp feeling better no abdominal pain or nausea no nausea afebrile OBJECTIVE: Vital Signs-as noted below Exam: General-alert and oriented. Not in distress ENT-Normal hearing Neck-no neck masses Lungs-cta b/l no wheezing or crackles Heart-S1 and S2 heard regular rate and rhythm, no murmurs Abdomen-soft bowel sounds present no tenderness no distension recent lap cheko dressing clean Extremities-no edema no erythema Neuro-alert and awake moves extremities Lab data as noted below. ASSESSMENT & PLAN: 1. Hypertensive urgency incresed losartan to 50mg daily iv hydralazine prn will monitor. Postop cholecystectomy abdominal pain/R shoulder and neck pain likely musculoskeletal. HIDA scan confirms biliary leak s/p ercp management as per GI and surgery. 2. Hyperglycemia 2 to dextrose containing IVF possible prediabetes, HgA1c noted to be 5.7.f/u with pcp. 3. Past tobacco DVT PROPHYLAXIS scds DISPOSITION to be determined Vital Signs: Date Time Temp Pulse Resp B/P (MAP) Pulse Ox O2 Delivery O2 Flow Rate FiO2 09/17/17 17:41 36.7 75 16 143/77 (99) 94 Room Air 09/17/17 17:10 36.7 81 18 150/79 (102) 95 Nasal Cannula 2.0 09/17/17 16:45 95 Nasal Cannula 2.0 09/17/17 16:45 95 Nasal Cannula 2.0 09/17/17 16:35 36.8 80 16 153/76 (101) 95 Nasal Cannula 2.0 09/17/17 16:15 85 15 126/72 95 Nasal Cannula 2 09/17/17 16:05 37.1 86 15 123/66 95 Nasal Cannula 2 09/17/17 15:55 97 19 129/75 94 Nasal Cannula 2 09/17/17 15:45 97 18 114/70 92 Room Air 09/17/17 15:35 94 16 135/72 96 Oxymask 10 09/17/17 15:26 37.8 99 16 141/79 97 Oxymask 10 09/17/17 13:30 128/75 (92) 09/17/17 11:57 36.7 76 18 195/84 (121) 93 Room Air 09/17/17 10:17 94 Room Air 09/17/17 07:54 37.1 84 18 128/74 (92) 94 Room Air 09/17/17 07:15 Room Air 09/17/17 04:56 161/84 (109) 09/17/17 04:26 201/99 (133) 09/17/17 03:35 37.0 76 16 204/99 (134) 92 Room Air 189/84 (119) 09/16/17 23:20 187/94 (125) 184/96 (125) 09/16/17 23:20 Room Air 09/16/17 23:05 37.1 89 16 182/88 (119) 93 Room Air 09/16/17 22:37 90 186/83 (117) 09/16/17 20:50 184/93 (123) 09/16/17 20:47 36.8 90 16 213/95 (134) 95 Room Air 09/16/17 20:31 36.8 90 16 213/95 95 Room Air 09/16/17 19:05 86 18 193/93 98 Room Air Lab Results: Results Past 24 Hours Test 09/17/17 05:37 Range/Units White Blood Count 11.66 4.8-10.8 K/uL Red Blood Count 4.49 4.2-5.4 M/uL Hemoglobin 13.2 12.0-16.0 g/dL Hematocrit 38.8 37-47 % Mean Corpuscular Volume 86.4 80-100 fL Mean Corpuscular Hemoglobin 29.4 25-34 pg Mean Corpuscular Hemoglobin Concent 34.0 32-36 g/dl Platelet Count 178 130-400 K/uL Mean Platelet Volume 8.9 7.4-10.4 fL Neutrophils (%) (Auto) 74.7 % Lymphocytes (%) (Auto) 15.0 % Monocytes (%) (Auto) 9.8 % Eosinophils (%) (Auto) 0.1 % Basophils (%) (Auto) 0.1 % Neutrophils # (Auto) 8.72 1.4-6.5 K/uL Lymphocytes # (Auto) 1.75 1.2-3.4 K/uL Monocytes # (Auto) 1.14 0.11-0.59 K/uL Eosinophils # (Auto) 0.01 0-0.5 K/uL Basophils # (Auto) 0.01 0-0.2 K/uL RDW Standard Deviation 42.5 36.4-46.3 fL RDW Coefficient of Variation 13.5 11.5-14.5 % Immature Granulocyte % (Auto) 0.3 % Immature Granulocyte # (Auto) 0.03 0.00-0.02 K/uL Sodium Level 136 136-145 mmol/L Potassium Level 3.9 3.5-5.1 mmol/L Chloride Level 105 98-107 mmol/L Carbon Dioxide Level 25 21-32 mmol/L Anion Gap 6.0 3-11 mmol/L Blood Urea Nitrogen 10 7-18 mg/dl Creatinine 0.70 0.60-1.20 mg/dl Est Creatinine Clear Calc Drug Dose 93.3 ml/min Estimated GFR () 113.0 Estimated GFR (Non- 97.5 BUN/Creatinine Ratio 14.0 10-20 Random Glucose 122 70-99 mg/dl Estimated Average Glucose 117 mg/dl Hemoglobin A1c 5.7 4.5-5.6 % Calcium Level 8.8 8.5-10.1 mg/dl Magnesium Level 2.1 1.8-2.4 mg/dl Total Bilirubin 1.3 0.2-1 mg/dl Aspartate Amino Transf (AST/SGOT) 100 15-37 U/L Alanine Aminotransferase (ALT/SGPT) 146 12-78 U/L Alkaline Phosphatase 159 45-117 U/L Total Protein 7.4 6.4-8.2 gm/dl Albumin 3.5 3.4-5.0 gm/dl Globulin 3.9 2.5-4.0 gm/dl Albumin/Globulin Ratio 0.9 0.9-2 Lipase 81 73-393 U/L
[2017-09-17] MEDS: LACTATED RINGER'S 1000ML 1,000 ML IV SCH (23:42)
--- NOTE | 2017-09-18 05:31 | Surgery Progress Note ---
Surgery Progress Note Date of Service Sep 18, 2017. Subjective she feels much better- minimal pain tolerating ice chips Objective Vital Signs: Date Time Temp Pulse Resp B/P (MAP) Pulse Ox O2 Delivery O2 Flow Rate FiO2 09/17/17 23:40 Room Air 09/17/17 22:54 36.6 78 16 126/64 (84) 93 Room Air 09/17/17 19:50 36.7 78 18 160/78 (105) 93 Room Air 09/17/17 18:47 37.4 75 18 159/82 (107) 96 Nasal Cannula 2.0 09/17/17 17:41 36.7 75 16 143/77 (99) 94 Room Air 09/17/17 17:10 36.7 81 18 150/79 (102) 95 Nasal Cannula 2.0 09/17/17 16:45 95 Nasal Cannula 2.0 09/17/17 16:45 95 Nasal Cannula 2.0 09/17/17 16:35 36.8 80 16 153/76 (101) 95 Nasal Cannula 2.0 09/17/17 16:15 85 15 126/72 95 Nasal Cannula 2 09/17/17 16:05 37.1 86 15 123/66 95 Nasal Cannula 2 09/17/17 15:55 97 19 129/75 94 Nasal Cannula 2 09/17/17 15:45 97 18 114/70 92 Room Air 09/17/17 15:35 94 16 135/72 96 Oxymask 10 09/17/17 15:26 37.8 99 16 141/79 97 Oxymask 10 09/17/17 13:30 128/75 (92) 09/17/17 11:57 36.7 76 18 195/84 (121) 93 Room Air 09/17/17 10:17 94 Room Air 09/17/17 07:54 37.1 84 18 128/74 (92) 94 Room Air 09/17/17 07:15 Room Air General Appearance: no apparent distress Neck: supple Respiratory/Chest: no respiratory distress Abdomen: soft Incision(s): intact Laboratory Results: Results Past 24 Hours Test 09/17/17 05:37 09/18/17 04:44 Range/Units White Blood Count 11.66 4.8-10.8 K/uL Red Blood Count 4.49 4.2-5.4 M/uL Hemoglobin 13.2 12.0-16.0 g/dL Hematocrit 38.8 37-47 % Mean Corpuscular Volume 86.4 80-100 fL Mean Corpuscular Hemoglobin 29.4 25-34 pg Mean Corpuscular Hemoglobin Concent 34.0 32-36 g/dl Platelet Count 178 130-400 K/uL Mean Platelet Volume 8.9 7.4-10.4 fL Neutrophils (%) (Auto) 74.7 % Lymphocytes (%) (Auto) 15.0 % Monocytes (%) (Auto) 9.8 % Eosinophils (%) (Auto) 0.1 % Basophils (%) (Auto) 0.1 % Neutrophils # (Auto) 8.72 1.4-6.5 K/uL Lymphocytes # (Auto) 1.75 1.2-3.4 K/uL Monocytes # (Auto) 1.14 0.11-0.59 K/uL Eosinophils # (Auto) 0.01 0-0.5 K/uL Basophils # (Auto) 0.01 0-0.2 K/uL RDW Standard Deviation 42.5 36.4-46.3 fL RDW Coefficient of Variation 13.5 11.5-14.5 % Immature Granulocyte % (Auto) 0.3 % Immature Granulocyte # (Auto) 0.03 0.00-0.02 K/uL Sodium Level 136 136-145 mmol/L Potassium Level 3.9 3.5-5.1 mmol/L Chloride Level 105 98-107 mmol/L Carbon Dioxide Level 25 21-32 mmol/L Anion Gap 6.0 3-11 mmol/L Blood Urea Nitrogen 10 7-18 mg/dl Creatinine 0.70 0.60-1.20 mg/dl Est Creatinine Clear Calc Drug Dose 93.3 ml/min Estimated GFR () 113.0 Estimated GFR (Non- 97.5 BUN/Creatinine Ratio 14.0 10-20 Random Glucose 122 70-99 mg/dl Estimated Average Glucose 117 mg/dl Hemoglobin A1c 5.7 4.5-5.6 % Calcium Level 8.8 8.5-10.1 mg/dl Magnesium Level 2.1 1.8-2.4 mg/dl Total Bilirubin 1.3 0.2-1 mg/dl Aspartate Amino Transf (AST/SGOT) 100 15-37 U/L Alanine Aminotransferase (ALT/SGPT) 146 12-78 U/L Alkaline Phosphatase 159 45-117 U/L Total Protein 7.4 6.4-8.2 gm/dl Albumin 3.5 3.4-5.0 gm/dl Globulin 3.9 2.5-4.0 gm/dl Albumin/Globulin Ratio 0.9 0.9-2 Lipase 81 73-393 U/L Assessment & Plan 09/18/17- s/p ERCP, sphincterotomy by Dr Weaver yesterday. much improved. Cont ice for now- adv per GI. Cont IV fluid and meds
[2017-09-18 07:16] LABS: EOS % 0.1 %; EOS ABS # 0.01 K/uL (0-0.5); HEMATOCRIT 34.5 % (37-47); IG# 0.01 K/uL (0.00-0.02); LYMPH % 19.2 %; LYMPH ABS # 1.37 K/uL (1.2-3.4); MEAN CELL VOLUME 84.6 fL (80-100); MEAN CORPUSCULAR HEMOGLOBIN 29.4 pg (25-34); MEAN CORPUSCULAR HGB CONC 34.8 g/dl (32-36); MEAN PLATELET VOLUME 9.1 fL (7.4-10.4); MONO % 11.1 %; MONO ABS # 0.79 K/uL (0.11-0.59); NEUT % 69.5 %; NEUT ABS # 4.94 K/uL (1.4-6.5); PLATELET COUNT 161 K/uL (130-400); RED CELL DISTRIBUTION WIDTH CV 12.9 % (11.5-14.5); RED CELL DISTRIBUTION WIDTH SD 39.3 fL (36.4-46.3); WHITE BLOOD COUNT 7.12 K/uL (4.8-10.8)
[2017-09-18 07:25] VITALS: BP 144/78; PULSE 74; TEMP 37; O2SAT 94
[2017-09-18] MEDS: ENOXAPARIN 40 MG/0.4 ML SYR SQ SCH (07:45)
[2017-09-18] MEDS: PANTOprazole SOD 40 MG TAB PO SCH (07:45)
[2017-09-18 07:47] LABS: ALBUMIN 3.1 gm/dl (3.4-5.0); CREATININE 0.56 mg/dl (0.60-1.20); POTASSIUM 3.9 mmol/L (3.5-5.1)
[2017-09-18 07:49] LABS: TOTAL PROTEIN 6.5 gm/dl (6.4-8.2)
[2017-09-18] MEDS ORDERED: LOSARTAN POTASSIUM 25 MG TAB PO SCH (09:00)
[2017-09-18] MEDS ORDERED: LOSARTAN POTASSIUM 50 MG TAB PO SCH (09:00)
--- NOTE | 2017-09-18 10:13 | Progress Note ---
Progress Note Date of Service Sep 18, 2017. Progress Note s/p ERCP yesterday afternoon for bile leak. Sphincterotomy performed and stent placed. Feeling good today. Tolerating diet. LFTs improving. She will need a repeat ERCP in 4 weeks for stent removal. My office will arrange this. Please call with questions.
[2017-09-18 11:26] VITALS: BP 148/84; PULSE 72; TEMP 36.8; O2SAT 96
[2017-09-18] MEDS: LACTATED RINGER'S 1000ML 1,000 ML IV SCH (11:49)
--- NOTE | 2017-09-18 12:06 | Surgery Progress Note ---
Surgery Progress Note Date of Service Sep 18, 2017. Subjective + feeling well F/U S/P ERCP for biliary leak of S/P laparoscopic cholecystectomy, pt is doing much better, no abdominal pain now, no nausea, no vomiting, no fever , she tolerated diet, Objective Vital Signs: Date Time Temp Pulse Resp B/P (MAP) Pulse Ox O2 Delivery O2 Flow Rate FiO2 09/18/17 11:26 36.8 72 16 148/84 (105) 96 Room Air 09/18/17 08:10 Room Air 09/18/17 07:25 37.0 74 16 144/78 (100) 94 Room Air 09/17/17 23:40 Room Air 09/17/17 22:54 36.6 78 16 126/64 (84) 93 Room Air 09/17/17 19:50 36.7 78 18 160/78 (105) 93 Room Air 09/17/17 18:47 37.4 75 18 159/82 (107) 96 Nasal Cannula 2.0 09/17/17 17:41 36.7 75 16 143/77 (99) 94 Room Air 09/17/17 17:10 36.7 81 18 150/79 (102) 95 Nasal Cannula 2.0 09/17/17 16:45 95 Nasal Cannula 2.0 09/17/17 16:45 95 Nasal Cannula 2.0 09/17/17 16:35 36.8 80 16 153/76 (101) 95 Nasal Cannula 2.0 09/17/17 16:15 85 15 126/72 95 Nasal Cannula 2 09/17/17 16:05 37.1 86 15 123/66 95 Nasal Cannula 2 09/17/17 15:55 97 19 129/75 94 Nasal Cannula 2 09/17/17 15:45 97 18 114/70 92 Room Air 09/17/17 15:35 94 16 135/72 96 Oxymask 10 09/17/17 15:26 37.8 99 16 141/79 97 Oxymask 10 09/17/17 13:30 128/75 (92) General Appearance: WD/WN, no apparent distress Head: normocephalic Neck: supple, no JVD Respiratory/Chest: chest non-tender, lungs clear Cardiovascular: regular rate, rhythm, no edema, no gallop, no JVD, no murmur Abdomen: normal bowel sounds, non tender, non distended, soft, no organomegaly Extremities: normal range of motion, non-tender, normal inspection Laboratory Results: Results Past 24 Hours Test 09/18/17 06:40 Range/Units White Blood Count 7.12 4.8-10.8 K/uL Red Blood Count 4.08 4.2-5.4 M/uL Hemoglobin 12.0 12.0-16.0 g/dL Hematocrit 34.5 37-47 % Mean Corpuscular Volume 84.6 80-100 fL Mean Corpuscular Hemoglobin 29.4 25-34 pg Mean Corpuscular Hemoglobin Concent 34.8 32-36 g/dl Platelet Count 161 130-400 K/uL Mean Platelet Volume 9.1 7.4-10.4 fL Neutrophils (%) (Auto) 69.5 % Lymphocytes (%) (Auto) 19.2 % Monocytes (%) (Auto) 11.1 % Eosinophils (%) (Auto) 0.1 % Basophils (%) (Auto) 0.0 % Neutrophils # (Auto) 4.94 1.4-6.5 K/uL Lymphocytes # (Auto) 1.37 1.2-3.4 K/uL Monocytes # (Auto) 0.79 0.11-0.59 K/uL Eosinophils # (Auto) 0.01 0-0.5 K/uL Basophils # (Auto) 0.00 0-0.2 K/uL RDW Standard Deviation 39.3 36.4-46.3 fL RDW Coefficient of Variation 12.9 11.5-14.5 % Immature Granulocyte % (Auto) 0.1 % Immature Granulocyte # (Auto) 0.01 0.00-0.02 K/uL Sodium Level 140 136-145 mmol/L Potassium Level 3.9 3.5-5.1 mmol/L Chloride Level 109 98-107 mmol/L Carbon Dioxide Level 23 21-32 mmol/L Anion Gap 7.0 3-11 mmol/L Blood Urea Nitrogen 14 7-18 mg/dl Creatinine 0.56 0.60-1.20 mg/dl Est Creatinine Clear Calc Drug Dose 116.7 ml/min Estimated GFR () 121.7 Estimated GFR (Non- 105.0 BUN/Creatinine Ratio 24.5 10-20 Random Glucose 100 70-99 mg/dl Calcium Level 9.0 8.5-10.1 mg/dl Total Bilirubin 1.0 0.2-1 mg/dl Aspartate Amino Transf (AST/SGOT) 65 15-37 U/L Alanine Aminotransferase (ALT/SGPT) 135 12-78 U/L Alkaline Phosphatase 153 45-117 U/L Total Protein 6.5 6.4-8.2 gm/dl Albumin 3.1 3.4-5.0 gm/dl Globulin 3.4 2.5-4.0 gm/dl Albumin/Globulin Ratio 0.9 0.9-2 Lipase 136 73-393 U/L Assessment & Plan pt is doing better, repeat labs in am, will F/U 09/17/2017 S/P laparoscopic cholecystectomy, pod 2 HIDA scan - biliary leak, D/W GI DR. toth who recommend to do ERCP first, pt will have ERCP today afternoon, I inform pt about the plan, D/W benefits, risks and alternatives of the ERCP, and also I inform pt, I will F/U pt closely after ERCP, if pt's symptom is not improved after 2-3 days, I will do diagnostic laparoscopy, pt understood, she agrees with the plan, I answered all questions, 09/18/2017 F/U S/P ERCP I update inform pt about ERCP finding, pt understood, I answered all questions, pt is doing much better, no abdominal pain, she tolerated diet, pt wants to go home today. I gave pt post care instruction, F/U me in 1 week, removal stent in 6 weeks, pt is doing better, repeat labs in am, will F/U 09/17/2017 S/P laparoscopic cholecystectomy, pod 2 HIDA scan - biliary leak, D/W GI DR. toth who recommend to do ERCP first, pt will have ERCP today afternoon, I inform pt about the plan, D/W benefits, risks and alternatives of the ERCP, and also I inform pt, I will F/U pt closely after ERCP, if pt's symptom is not improved after 2-3 days, I will do diagnostic laparoscopy, pt understood, she agrees with the plan, I answered all questions,
[2017-09-18 12:38] VITALS: BP 148/84; PULSE 72; TEMP 36.8; O2SAT 96
--- NOTE | 2017-09-20 08:00 | DISCHARGE SUMMARY ---
ADMITTING DIAGNOSES: Post stat laparoscopic cholecystectomy, and postoperative pain. DISCHARGE DIAGNOSES: Post stat laparoscopic cholecystectomy, biliary leak, post stat ERCP. SURGEON: Shyla Rodriguez MD DETAILS OF DISCHARGE SUMMARY: This is a 57-year-old female who had laparoscopic cholecystectomy for chronic cholecystitis; however, postop day 1, the patient came back to ER for abdominal pain and the patient was admitted to the hospital for further study and the patient had HIDA scan done, showing bile leak and the patient had ERCP by GI doctor put a stent. In the ERCP, they found that the patient had bile leak and they did an ERCP on 09/17/2017. Today is postop day 1. The patient is doing much better. No significant abdominal pain and she tolerated diet. No nausea, no vomiting, and no fever. PHYSICAL EXAMINATION: VITAL SIGNS: Temperature is 36.8, heart rate 72, respiratory rate is 16, blood pressure 148/84, and O2 saturation 96% on room air. GENERAL: The patient is alert, awake, and oriented x3. No distress. HEENT: With normal limitation. NEUROLOGIC: Intact. NECK: No JVD. CHEST: Bilateral lung sounds clear. HEART: Normal S1 and S2. No murmur. ABDOMEN: Soft. No tenderness. Nondistended. All the incisions are healing well. No redness. No drainage. EXTREMITIES: No edema. LABORATORY DATA: Showed WBC 7.12 and hemoglobin 12. Sodium 140, potassium 3.9, BUN 14, and creatinine 0.56. Total bilirubin 1.0. AST 65, ALT 135, and alk phos 153. Lipase 136. The patient wanted to go home today. I gave the patient postop care instructions and I will follow the patient in 1 week in my office and also the patient will see the GI doctor in 6 weeks to remove stent. Also instructed that the patient should come back to hospital ER if the patient develops any severe abdominal pain, nausea, vomiting, and temperature. The patient understands. CELENAD
== END 2017-09-18 13:33 | disposition home or self-care (01) | DRG 395 ==
LOC: EDBD 14:20 → C.EDA 14:21 → C.MSN 17:58 → ENRESERV 18:32
PROVIDERS: ADMIT Surgery; ATTEND Surgery
PROC: 0F798DZ Dilation of Common Bile Duct with Intraluminal Device, Via Natural or Artificial Opening Endoscopic (ICD-10-PCS; principal; 2017-09-17 08:45)
PROC: 0F998ZZ Drainage of Common Bile Duct, Via Natural or Artificial Opening Endoscopic (ICD-10-PCS; principal; 2017-09-17 08:45)
DX: K91.89 Other postprocedural complications and disorders of digestive system (principal); K83.8 Other specified diseases of biliary tract; G89.18 Other acute postprocedural pain; R10.11 Right upper quadrant pain; I16.0 Hypertensive urgency; M25.511 Pain in right shoulder; M54.2 Cervicalgia; R73.9 Hyperglycemia, unspecified; I10 Essential (primary) hypertension; K21.9 Gastro-esophageal reflux disease without esophagitis; E78.5 Hyperlipidemia, unspecified; Z51.81 Encounter for therapeutic drug level monitoring; Z79.899 Other long term (current) drug therapy; Z90.49 Acquired absence of other specified parts of digestive tract; Z87.19 Personal history of other diseases of the digestive system; Z87.891 Personal history of nicotine dependence; Z82.49 Family history of ischemic heart disease and other diseases of the circulatory system; Z84.1 Family history of disorders of kidney and ureter; Z84.89 Family history of other specified conditions; Z80.0 Family history of malignant neoplasm of digestive organs; Z82.3 Family history of stroke; Z83.3 Family history of diabetes mellitus; Y83.8 Other surgical procedures as the cause of abnormal reaction of the patient, or of later complication, without mention of misadventure at the time of the procedure

== ENCOUNTER → 2017-10-29 | Day surgery (SDC) | payer OTHER ==
[2017-10-05 13:16] VITALS: BMI 25.0
[~2017-10-29] VITALS: Ht 167.6 cm; Wt 70.5 kg
[~2017-10-29] MED LIST changes: -ATOR10TA82 PO; +ATROPINE SULFATE 0.1 MG/ML 5ML SYR IV PRN; +CZR25 PO; +DEXAMETHASONE SOD INJ 4 MG/ML VIAL ONE; +EpHEDrine SULFATE INJ 50 MG/ML AMP IV PRN; +FENTANYL CITRATE INJ 50 MCG/1 ML 2 ML VIAL IV PRN; +FENTANYL CITRATE INJ 50 MCG/1 ML 2 ML VIAL ONE; +INDOMETHACIN 50 MG SUPP PR ONE; +LACTATED RINGER'S 1000ML 1,000 ML IV SCH; +LIDOCAINE HCL 2% 2 ML VIAL (20MG/ML) ONE; -LOSA1TAB PO; +LPT10 PO; +MIDAZOLAM HCL 1 MG/ML 2ML VIAL ONE; +MRLP527 PO; +ONDANSETRON INJ 2 MG/ML 2 ML VIAL IV PRN; +ONDANSETRON INJ 2 MG/ML 2 ML VIAL ONE; -OXYC-57 PO; +PROMETHAZINE HCL INJ 6.25 MG in SODIUM CHLORIDE 0.9% 50ML 50 ML IV PRN; +PROPOFOL IV EMULSION 10 MG/ML 20 ML VIAL IV ONE; +ROCURONIUM BROMIDE 10 MG/ML 5 ML VIAL IV ONE; +SUCCINYLCHOLINE CHLORIDE 20 MG/ML 10 ML VIAL IV ONE
[2017-10-29 07:41] VITALS: BP 181/98; PULSE 58; TEMP 36.7; O2SAT 97; Ht 167.6 cm; Wt 70.5 kg
--- NOTE | 2017-10-29 09:01 | Endo History and Physical ---
History & Physical Date of Service: Oct 29, 2017. Chief Complaint: Follow-up for a bile leak Referring Physician: Dr. Weaver History of Present Illness Patient with a prior bile leak for ERCP today for stent removal. She does note having intermitant abdominal pain, sharp in nature, lasts several minutes at a time. Past Medical History Reflux, High Cholesterol, Hypertension, Kidney Disease Past Surgical History Hx Cardiac Surgery: No Hx Abdominal Surgery: Yes (appendectomy, cholecystectomy, ANDREW) Hx Post-Op Nausea and Vomiting: No Hx Cancer Surgery: No Hx Thoracic Surgery: No Hx Orthopedic: No Hx Urinary Tract Surgery: Yes (LITHOTRIPSY AND STENT PLACED AND REMOVED) Social History Smoking Status: Never Smoker Hx Substance Use: No Hx Alcohol Use: Yes (RARE) Allergies Coded Allergies: Naproxen (Verified Allergy, Unknown, NAUSEA AND VOMITNNG, 10/29/17) Sulfamethoxazole w/Trimethoprim (Verified Allergy, Unknown, ITCHING, ) Current Medications Reported Home Medications Medications Dose Route/Sig Max Daily Dose Days Date Category Dose Instructions Lipitor (Atorvastatin Calcium) 10 Mg Tab 10 Mg PO QAM 09/16/17 Reported Losartan Potassium 25 Mg Tab 25 Mg PO QAM 09/16/17 Reported Polyethylene Glycol 3350 (Polyethylene) 527 Gm Soln 17 Gm PO DAILY PRN 09/16/17 Reported DISSOLVE 17 GRAMS IN 8 OUNCES OF WATER OR JUICE AND DRINK DAILY Advil (Ibuprofen) 200 Mg Tab 600 Mg PO Q4-6HRS PRN 09/09/17 Reported Protonix (Pantoprazole Sodium) 40 Mg Tab 40 Mg PO QAM 06/29/14 Reported Vital Signs Weight (Kilograms): 70.45 Height (Feet): 5 Height (Inches): 6 Date Time Temp Pulse Resp B/P (MAP) Pulse Ox O2 Delivery O2 Flow Rate FiO2 10/29/17 07:41 36.7 58 18 181/98 (125) 97 Room Air Physical Exam General Appearance: no apparent distress Respiratory/Chest: Auscultation: breath sounds normal Cardiovascular: Heart Auscultation: RRR Abdomen: Inspection & Palpation: soft, RUQ tenderness Assessment and Plan ERCP today for stent removal. We have discussed the risks to include bleeding, infection, perforation, pain, and pancreatitis. due to the abdominal pain we will plan for an upper endoscopy as well.
--- NOTE | 2017-10-29 09:47 | GI REPORT ---
Procedure Date: 10/29/2017 9:36 AM Procedure: Upper GI endoscopy Indications: Epigastric abdominal pain Medicines: General Anesthesia Complications: No immediate complications. Estimated blood loss: Minimal. Estimated Blood Loss: Estimated blood loss was minimal. Procedure: Pre-Anesthesia Assessment: - Prior to the procedure, a History and Physical was performed, and patient medications, allergies and sensitivities were reviewed. The patient's tolerance of previous anesthesia was reviewed. - The risks and benefits of the procedure and the sedation options and risks were discussed with the patient. All questions were answered and informed consent was obtained. - Patient identification and proposed procedure were verified prior to the procedure by the physician, the nurse and the dynamite shooter. The procedure was verified in the procedure room. - Pre-procedure physical examination revealed no contraindications to sedation. - ASA Grade Assessment: II - A patient with mild systemic disease. - After reviewing the risks and benefits, the patient was deemed in satisfactory condition to undergo the procedure. - The anesthesia plan was to use general anesthesia. - Immediately prior to administration of medications, the patient was re-assessed for adequacy to receive sedatives. - The heart rate, respiratory rate, oxygen saturations, blood pressure, adequacy of pulmonary ventilation, and response to care were monitored throughout the procedure. - The physical status of the patient was re-assessed after the procedure. After obtaining informed consent, the endoscope was passed under direct vision. Throughout the procedure, the patient's blood pressure, pulse, and oxygen saturations were monitored continuously. The scope was introduced through the mouth, and advanced to the second part of duodenum. The upper GI endoscopy was accomplished without difficulty. The patient tolerated the procedure well. Findings: The examined esophagus was normal. The Z-line was regular and was found 39 cm from the incisors. The entire examined stomach was normal. Biopsies were taken with a cold forceps for histology. Estimated blood loss was minimal. One non-obstructing non-bleeding cratered duodenal ulcer with no stigmata of bleeding was found in the duodenal bulb. The lesion was 10 mm in largest dimension. The ulcer perforated the bowel wall. The second portion of the duodenum was normal. Impression: - Normal esophagus. - Z-line regular, 39 cm from the incisors. - Normal stomach. Biopsied. - One non-obstructing non-bleeding duodenal ulcer with no stigmata of bleeding. The ulcer perforated the bowel wall. - Normal second portion of the duodenum. Recommendation: - Discharge patient to home (ambulatory). - Clear liquid diet today. - Use Protonix (pantoprazole) 40 mg PO daily. - No aspirin, ibuprofen, naproxen, or other non-steroidal anti-inflammatory drugs for 6 weeks. - Repeat upper endoscopy in 3 months for surveillance. Gladis Hernandez D.O. Gladis Hernandez, 10/29/2017 9:46:23 AM This report has been signed electronically. Note Initiated On: 10/29/2017 9:36 AM I attest to the content of the Intraoperative Record and orders documented therein, exceptions below
--- NOTE | 2017-10-29 09:50 | [facility] Post Operative Brief Note ---
Immediate Operative Summary Operative Date Oct 29, 2017. Pre-Operative Diagnosis Abdominal Pain, Removal of Stent Post-Operative Diagnosis Bile leak resolved, Duodenal ulcer Procedure(s) Performed Upper Endoscopy, Endoscopic Retrograde Cholangiopancreatogram with Stent Removal, Upper endoscopy Surgeon Dr. Gladis Hernandez Can Feeder Surgeon(s) none Estimated Blood Loss 0 cc Findings Consistent with Post-Op Diagnosis Specimens 1) Gastric biopsy Drains None Anesthesia Type General Complication(s) none Disposition Accompanied Pt To Recover: no Disposition: Recovery Room / PACU
--- NOTE | 2017-10-29 09:52 | Discharge Instructions ---
Endoscopy Patient Instructions Date / Procedure(s) Performed Oct 29, 2017. ERCP, EGD Allergy Information Coded Allergies: Naproxen (Verified Allergy, Unknown, NAUSEA AND VOMITNNG, 10/29/17) Sulfamethoxazole w/Trimethoprim (Verified Allergy, Unknown, ITCHING, ) Discharge Date / Findings Oct 29, 2017. Bile leak has sealed Small duodenal ulcer Medication Instructions Reported Home Medications Medications Dose Route/Sig Max Daily Dose Days Date Category Dose Instructions Lipitor (Atorvastatin Calcium) 10 Mg Tab 10 Mg PO QAM 09/16/17 Reported Losartan Potassium 25 Mg Tab 25 Mg PO QAM 09/16/17 Reported Polyethylene Glycol 3350 (Polyethylene) 527 Gm Soln 17 Gm PO DAILY PRN 09/16/17 Reported DISSOLVE 17 GRAMS IN 8 OUNCES OF WATER OR JUICE AND DRINK DAILY Protonix (Pantoprazole Sodium) 40 Mg Tab 40 Mg PO QAM 06/29/14 Reported Provider Instructions Activity Restrictions - No exercising or heavy lifting for 24 hours. - Do not drink alcohol the day of the procedure. - Do not drive a car or operate machinery until the day after the procedure. - Do not make any important decisions or sign important papers in 24 hours after the procedure. Following Day: - Return to full activity which may include returning to work/school. Diet Clear liquid diet today Regular diet on Wednesday Treatment For Common After Affects For mild abdominal pain, bloating, or excessive gas: - Rest - Eat lightly - Lie on right side Follow-Up Information Please stop use of Nonsteroidals / Advil for 6 to 8 weeks Continue Protonix 1 time daily Repeat upper endosocopy in 3 months Anesthesia Information What You Should Know You have had a procedure that required some medicine to reduce anxiety and discomfort. This treatment is called moderate sedation. After receiving the treatment, you may be sleepy, but you will be able to breathe on your own. The effects of the treatment may last for several hours. Follow these instructions along with Activity/Diet recommendations noted above: * Do NOT do anything where dizziness or clumsiness would be dangerous. * Rest quietly at home today, then you can be up and about tomorrow. * Have a responsible person stay with you the rest of today. * You may have had an I.V. today. If so, you may take the dressing off later today. Recommendations Call your doctor if: * Trouble breathing * Continuous vomiting for more than 24 hours * Temperature above 101 degrees * Severe abdominal pain or bloating * Pain not relieved by pain medicine ordered * There is increased drainage or redness from any incision * A large amount of rectal bleeding greater than 2-3 tablespoons. (If you had a polyp/s removed or have hemorrhoids, a small amount of blood - from the rectum is to be expected.) * You have any unanswered questions or concerns. IN THE EVENT OF A SERIOUS EMERGENCY, GO TO THE NEAREST EMERGENCY ROOM Your discharge instructions were prepared by provider Gladis Hernandez. Patient Instructions Signature Page Kailyn Melton Patient (or Guardian) Signature/Date: I have read and understand the instructions given to me by my caregivers. Caregiver/RN/Doctor Signature/Date: The above-named patient and/or guardian has received patient instructions on this date. + Original Patient Signature Page (only) stays with chart. Please make copy for patient.
--- NOTE | 2017-10-29 10:04 | DIAGNOSTIC IMAGING REPORT ---
ERCP BILIARY DUCTAL CLINICAL HISTORY: DUCT EXPLORATION COMPARISON STUDY: CT of the abdomen and pelvis September 16, 2017 and fluoroscopic images from ERCP September 17, 2017. FLUOROSCOPY TIME: 1 minute and 23 seconds. FINDINGS: 11 fluoroscopic images were obtained. These images demonstrate removal of biliary stent. There are cholecystectomy clips. Balloon sweep through the common bile duct was performed. Contrast within the duodenum is noted. IMPRESSION: Fluoroscopic images from ERCP, as described above, with removal of biliary stent. Electronically signed by: Jean Pierre Watkins M.D. 10/29/2017 10:02 AM Dictated Date/Time: 10/29/2017 9:59 AM
[2017-10-29 10:40] VITALS: BP 174/83; PULSE 51; TEMP 36.8; O2SAT 96
--- NOTE | 2017-10-29 10:59 | Anesthesiology Progress Note ---
Anesthesia Post Op Note Date & Time Oct 29, 2017 at 10:59 Vital Signs Pain Intensity: 0 Vital Signs Past 12 Hours Date Time Temp Pulse Resp B/P (MAP) Pulse Ox O2 Delivery O2 Flow Rate FiO2 10/29/17 10:40 36.8 51 16 174/83 96 Room Air 10/29/17 10:29 36.4 10/29/17 10:28 52 13 10/29/17 10:28 52 13 96 10/29/17 10:26 159/95 10/29/17 10:23 54 13 96 10/29/17 10:23 54 13 10/29/17 10:22 57 18 96 10/29/17 10:22 58 18 10/29/17 10:21 166/92 10/29/17 10:17 59 13 10/29/17 10:17 59 13 96 10/29/17 10:16 164/85 10/29/17 10:14 58 27 10/29/17 10:14 59 27 97 10/29/17 10:11 163/80 10/29/17 10:09 50 14 10/29/17 10:09 49 14 100 10/29/17 10:08 54 15 100 10/29/17 10:08 52 15 10/29/17 10:06 168/93 10/29/17 10:03 54 13 100 10/29/17 10:03 54 13 10/29/17 10:01 159/95 10/29/17 09:58 64 20 10/29/17 09:58 64 20 100 10/29/17 09:56 175/91 10/29/17 09:53 36.4 72 12 164/100 100 Mask 10 10/29/17 09:53 68 16 10/29/17 09:53 71 16 164/100 100 10/29/17 07:41 36.7 58 18 181/98 (125) 97 Room Air Notes Mental Status: alert / awake / arousable, participated in evaluation Pt Amnestic to Procedure: Yes Nausea / Vomiting: adequately controlled Pain: adequately controlled Airway Patency, RR, SpO2: stable & adequate BP & HR: stable & adequate Hydration State: stable & adequate Anesthetic Complications: no major complications apparent
[2017-10-29 11:08] VITALS: BP 167/80; PULSE 46; O2SAT 94
--- NOTE | 2017-10-29 11:10 | GI REPORT ---
Procedure Date: 10/29/2017 9:19 AM Procedure: ERCP Indications: Follow-up of bile leak, Stent removal Medicines: General Anesthesia Complications: No immediate complications. Estimated blood loss: Minimal. Estimated Blood Loss: Estimated blood loss was minimal. Procedure: Pre-Anesthesia Assessment: - Prior to the procedure, a History and Physical was performed, and patient medications, allergies and sensitivities were reviewed. The patient's tolerance of previous anesthesia was reviewed. - The risks and benefits of the procedure and the sedation options and risks were discussed with the patient. All questions were answered and informed consent was obtained. - Patient identification and proposed procedure were verified prior to the procedure by the physician, the nurse and the specifications checker. The procedure was verified in the procedure room. - Pre-procedure physical examination revealed no contraindications to sedation. - ASA Grade Assessment: II - A patient with mild systemic disease. - After reviewing the risks and benefits, the patient was deemed in satisfactory condition to undergo the procedure. - The anesthesia plan was to use general anesthesia. - Immediately prior to administration of medications, the patient was re-assessed for adequacy to receive sedatives. - The heart rate, respiratory rate, oxygen saturations, blood pressure, adequacy of pulmonary ventilation, and response to care were monitored throughout the procedure. - The physical status of the patient was re-assessed after the procedure. After obtaining informed consent, the scope was passed under direct vision. Throughout the procedure, the patient's blood pressure, pulse, and oxygen saturations were monitored continuously. The Scope was introduced through the mouth, and advanced to the duodenum and used to inject contrast into the bile duct. The ERCP was accomplished without difficulty. The patient tolerated the procedure well. Findings: A shovel handle assembler film of the abdomen was obtained. Surgical clips, consistent with a previous cholecystectomy, were seen in the area of the right upper quadrant of the abdomen. The esophagus was successfully intubated under direct vision without detailed examination of the pharynx, larynx, and associated structures, and upper GI tract. The upper GI tract was grossly normal. One biliary stent originating in the biliary tree was emerging from the major papilla. The stent was partially occluded. A biliary sphincterotomy had been performed. The sphincterotomy appeared open. One stent was removed from the biliary tree using a snare. The bile duct was deeply cannulated with the short-nosed traction sphincterotome (Omni 35) and 0.035 in Acrobat 2 guidewire. Contrast was injected. I personally interpreted the bile duct images. Contrast extended to the entire biliary tree. A cholecystectomy had been performed. The in the biliary system was normal. To discover objects, the biliary tree was swept with an 8.5 mm to 15 mm balloon starting at the bifurcation several times. Sludge was swept from the duct. An occlusion cholangiogram showed no evidence of a bile leak today. The total fluoroscopy exposure time was 1 minute and 23 seconds. Indomethacin 100 mg was given via suppository to decrease the risk of post-ERCP pancreatitis (PEP). Impression: - One partially occluded stent from the biliary tree was seen in the major papilla. - Prior biliary sphincterotomy appeared open. - The patient has had a cholecystectomy. - One stent was removed from the biliary tree. - The biliary tree was swept and sludge was found. The bile leak appears to have resolved. - Indomethacin given to decrease risk of post-ERCP pancreatitis. Recommendation: - Perform an upper GI endoscopy today. - Observe patient's clinical course following today's ERCP with therapeutic intervention. - Clear liquid diet today. Gladis Hernandez D.O. Gladis Hernandez, 10/29/2017 9:49:15 AM This report has been signed electronically. Note Initiated On: 10/29/2017 9:19 AM I attest to the content of the Intraoperative Record and orders documented therein, exceptions below
[2017-10-29 11:35] VITALS: BP 183/82; PULSE 52; TEMP 36.4; O2SAT 97
== END | disposition home or self-care (01) ==
LOC: C.ACU 06:58
PROVIDERS: ATTEND Internal Medicine Gastroenterology
DX: K29.50 Unspecified chronic gastritis without bleeding (principal); K26.9 Duodenal ulcer, unspecified as acute or chronic, without hemorrhage or perforation; Z09 Encounter for follow-up examination after completed treatment for conditions other than malignant neoplasm; I10 Essential (primary) hypertension; K21.9 Gastro-esophageal reflux disease without esophagitis; E78.00 Pure hypercholesterolemia, unspecified; G47.33 Obstructive sleep apnea (adult) (pediatric); Z90.89 Acquired absence of other organs; Z90.49 Acquired absence of other specified parts of digestive tract; Z98.890 Other specified postprocedural states; Z88.1 Allergy status to other antibiotic agents; Z88.2 Allergy status to sulfonamides; Z79.899 Other long term (current) drug therapy

== ENCOUNTER 2017-11-05 20:45 | Emergency (ER) | payer OTHER ==
[~2017-11-05] VITALS: Ht 167.6 cm; Wt 72.4 kg
[~2017-11-05 20:45] MED LIST changes: -ATROPINE SULFATE 0.1 MG/ML 5ML SYR IV PRN; -DEXAMETHASONE SOD INJ 4 MG/ML VIAL ONE; -EpHEDrine SULFATE INJ 50 MG/ML AMP IV PRN; -FENTANYL CITRATE INJ 50 MCG/1 ML 2 ML VIAL IV PRN; -FENTANYL CITRATE INJ 50 MCG/1 ML 2 ML VIAL ONE; -INDOMETHACIN 50 MG SUPP PR ONE; -LACTATED RINGER'S 1000ML 1,000 ML IV SCH; -LIDOCAINE HCL 2% 2 ML VIAL (20MG/ML) ONE; -MIDAZOLAM HCL 1 MG/ML 2ML VIAL ONE; -ONDANSETRON INJ 2 MG/ML 2 ML VIAL IV PRN; -ONDANSETRON INJ 2 MG/ML 2 ML VIAL ONE; -PROMETHAZINE HCL INJ 6.25 MG in SODIUM CHLORIDE 0.9% 50ML 50 ML IV PRN; -PROPOFOL IV EMULSION 10 MG/ML 20 ML VIAL IV ONE; -ROCURONIUM BROMIDE 10 MG/ML 5 ML VIAL IV ONE; -SUCCINYLCHOLINE CHLORIDE 20 MG/ML 10 ML VIAL IV ONE
[2017-11-05 20:49] VITALS: TEMP 36.4; Ht 167.6 cm; Wt 72.4 kg
[2017-11-05] MEDS ORDERED: SODIUM CHLORIDE 0.9% 1000ML 1,000 ML IV STA (21:06)
[2017-11-05] MEDS ORDERED: ONDANSETRON INJ 2 MG/ML 2 ML VIAL IV STA (21:06)
[2017-11-05] MEDS ORDERED: HYDROmorphone INJ 1 MG/ML SYR IV STA (21:06)
[2017-11-05 21:37] LABS: BASO % 0.1 %; BASO ABS # 0.01 K/uL (0-0.2); EOS % 1.6 %; EOS ABS # 0.13 K/uL (0-0.5); HEMATOCRIT 38.2 % (37-47); IG# 0.02 K/uL (0.00-0.02); LYMPH ABS # 2.28 K/uL (1.2-3.4); MEAN CELL VOLUME 84.5 fL (80-100); MEAN CORPUSCULAR HEMOGLOBIN 28.8 pg (25-34); MEAN PLATELET VOLUME 9.5 fL (7.4-10.4); MONO % 6.9 %; MONO ABS # 0.56 K/uL (0.11-0.59); NEUT % 63.2 %; NEUT ABS # 5.13 K/uL (1.4-6.5); PLATELET COUNT 179 K/uL (130-400); RED CELL DISTRIBUTION WIDTH CV 13.6 % (11.5-14.5); RED CELL DISTRIBUTION WIDTH SD 42.1 fL (36.4-46.3); WHITE BLOOD COUNT 8.13 K/uL (4.8-10.8)
[2017-11-05 21:58] LABS: ALBUMIN 4.1 gm/dl (3.4-5.0); CALCIUM 9.2 mg/dl (8.5-10.1); CREATININE 0.81 mg/dl (0.60-1.20); POTASSIUM 3.5 mmol/L (3.5-5.1)
[2017-11-05 22:01] LABS: TOTAL PROTEIN 7.8 gm/dl (6.4-8.2)
--- NOTE | 2017-11-05 22:32 | DIAGNOSTIC IMAGING REPORT ---
ABD/PELVIS WITHOUT FOR STONE CLINICAL HISTORY: 57 years-old Female presenting with left flank pain eval for stone. TECHNIQUE: Multidetector CT of the abdomen and pelvis was performed without the use of intravenous contrast. IV contrast: None. A dose lowering technique was used consistent with the principles of ALARA (as low as reasonably achievable). COMPARISON: 09/16/2017. CT DOSE (mGy.cm): The estimated cumulative dose is 962.20 mGy.cm. FINDINGS: [employer] topogram: Cholecystectomy clips. Lung bases: Minimal basilar opacities, likely atelectasis. Normal heart size. No pericardial or pleural effusion. Liver: Normal morphology. Density consistent with hepatic steatosis. Biliary: No gross biliary ductal dilatation allowing for noncontrast technique. Pneumobilia. Gallbladder surgically absent. Resolving postsurgical infiltration of the gallbladder fossa. Pancreas: Mild parenchymal atrophy. Spleen: Normal noncontrast appearance. Adrenal glands: Normal noncontrast appearance. Kidneys and ureters: Nonobstructing 9 mm left renal calculus. Mild left pelvocaliectasis. Obstructing 3 mm calculus at the distal left ureter immediately proximal to the ureterovesical junction. Punctate nonobstructing right renal calculus. No right hydronephrosis. Right ureter normal. Bladder: Normal. Pelvic organs: Uterus surgically absent. Bowel: Few diverticula in the descending colon. No pericolonic inflammatory change. Postsurgical changes of appendectomy. No bowel obstruction. Peritoneal cavity: No free fluid or intraperitoneal gas. Lymph nodes: No gross lymphadenopathy allowing for noncontrast technique. Vasculature: Normal noncontrast appearance. Abdominal wall: Normal. Musculoskeletal: Normal. IMPRESSION: 1. Obstructing distal left ureteral 3 mm calculus with resultant mild left hydronephrosis. 2. Nonobstructing 9 mm left renal calculus. 3. Nonobstructing punctate right renal calculus. 4. Resolving postsurgical changes in the gallbladder fossa. Pneumobilia is the result of sphincterotomy or sphincter dysfunction. 5. Hepatic steatosis. Electronically signed by: Mark Ayala M.D. 11/05/2017 10:16 PM Dictated Date/Time: 11/05/2017 10:07 PM
[2017-11-05] MEDS ORDERED: OXYCODONE IR HOME PACK PO ONE (23:00)
[2017-11-05] MEDS ORDERED: OXYC1TAB3 PO (23:05)
[2017-11-05] MEDS ORDERED: HYDROmorphone INJ 0.5 MG/0.5 ML SYR ONE (23:06)
[2017-11-05 23:39] VITALS: BP 148/108; PULSE 63; O2SAT 96
--- NOTE | 2017-11-06 00:01 | EMERGENCY ROOM VISIT NOTE ---
History Report prepared by Jeronimo: Elijah Sánchez Under the Supervision of: Dr. Jan Brewster M.D. First contact with patient: 21:02 Chief Complaint: KIDNEY STONE Stated Complaint: KIDNEY STONES History of Present Illness The patient is a 57 year old female who presents to the Emergency Room with complaints of persistent abdominal pain since this morning. She notes the pain is somewhat relieved with walking. She currently rates her pain a 5/10 in severity. She states that she was seen at [facility] today. They took a urine sample, which showed blood in her urine, though no infection. She denies any fever, vomiting, burning with urination, or diarrhea. She denies any leg swelling. She denies any chance of . She has a history of hysterectomy. She states the pain is sharp and feels like her prior kidney stones. Is located in the left flank. Source of History: patient Onset: since this morning Position: abdomen Symptom Intensity: 5/10 Quality: sharp Timing: other (persistent ) Modifying Factors (Relieving): other (walking) Associated Symptoms: + urinary symptoms (blood in urine), No fevers, No vomiting, No diarrhea Note: She denies any leg swelling. Review of Systems See HPI for pertinent positives & negatives. A total of 10 systems reviewed and were otherwise negative. Past Medical & Surgical Medical Problems: (1) Hypertension Nos (2) Post-operative pain Surgical Problems: (1) History of appendectomy (2) History of hysterectomy Family History Heart disease Hypertension Kidney disease Kidney stones Seizures Social History Smoking Status: Never Smoker Alcohol Use: occasionally Drug Use: none Marital Status: Housing Status: lives with significant other Occupation Status: employed Current/Historical Medications Scheduled Atorvastatin (Lipitor), 10 MG PO QAM Losartan Potassium (Losartan Potassium), 25 MG PO QAM Pantoprazole (Protonix), 40 MG PO QAM Scheduled PRN Ibuprofen (Advil), 600 MG PO Q4-6HRS PRN for Pain Oxycodone Ir (Roxicodone Ir), 5 MG PO Q4H PRN for Pain Polyethylene (Polyethylene Glycol 3350), 17 GM PO DAILY PRN for Constipation Allergies Coded Allergies: Naproxen (Verified Allergy, Unknown, NAUSEA AND VOMITNNG, 10/29/17) Sulfamethoxazole w/Trimethoprim (Verified Allergy, Unknown, ITCHING, ) Physical Exam Vital Signs Date Time Temp Pulse Resp B/P (MAP) Pulse Ox O2 Delivery O2 Flow Rate FiO2 11/05/17 23:39 63 16 148/108 96 11/05/17 22:41 61 18 203/98 99 Room Air 11/05/17 20:49 36.4 67 24 202/93 97 Room Air Physical Exam Constitutional: Vital signs reviewed. Eyes: Pupils are equal round reactive to light. Conjunctiva are noninjected. ENT: Pharynx is clear without erythema or exudate. Mucous membranes are moist. Neck supple without meningeal signs. Respiratory: Clear to auscultation bilaterally. Breath sounds are equal bilaterally. Cardiovascular: Regular rate and rhythm. No rubs or gallops. GI: Soft, nondistended. Bowel sounds are present. LLQ tenderness, no guarding. Musculoskeletal: No peripheral edema. No CVA tenderness. Integumentary: No cyanosis. Neurological: The patient is awake and alert. No focal deficits. Psychiatric: Normal affect. Medical Decision & Procedures ER Provider Diagnostic Interpretation: Radiology results as stated below per my review and the radiologist's interpretation: ABD/PELVIS WITHOUT FOR STONE CLINICAL HISTORY: 57 years-old Female presenting with left flank pain eval for stone. TECHNIQUE: Multidetector CT of the abdomen and pelvis was performed without the use of intravenous contrast. IV contrast: None. A dose lowering technique was used consistent with the principles of ALARA (as low as reasonably achievable). COMPARISON: 09/16/2017. CT DOSE (mGy.cm): The estimated cumulative dose is 962.20 mGy.cm. FINDINGS: [employer] topogram: Cholecystectomy clips. Lung bases: Minimal basilar opacities, likely atelectasis. Normal heart size. No pericardial or pleural effusion. Liver: Normal morphology. Density consistent with hepatic steatosis. Biliary: No gross biliary ductal dilatation allowing for noncontrast technique. Pneumobilia. Gallbladder surgically absent. Resolving postsurgical infiltration of the gallbladder fossa. Pancreas: Mild parenchymal atrophy. Spleen: Normal noncontrast appearance. Adrenal glands: Normal noncontrast appearance. Kidneys and ureters: Nonobstructing 9 mm left renal calculus. Mild left pelvocaliectasis. Obstructing 3 mm calculus at the distal left ureter immediately proximal to the ureterovesical junction. Punctate nonobstructing right renal calculus. No right hydronephrosis. Right ureter normal. Bladder: Normal. Pelvic organs: Uterus surgically absent. Bowel: Few diverticula in the descending colon. No pericolonic inflammatory change. Postsurgical changes of appendectomy. No bowel obstruction. Peritoneal cavity: No free fluid or intraperitoneal gas. Lymph nodes: No gross lymphadenopathy allowing for noncontrast technique. Vasculature: Normal noncontrast appearance. Abdominal wall: Normal. Musculoskeletal: Normal. IMPRESSION: 1. Obstructing distal left ureteral 3 mm calculus with resultant mild left hydronephrosis. 2. Nonobstructing 9 mm left renal calculus. 3. Nonobstructing punctate right renal calculus. 4. Resolving postsurgical changes in the gallbladder fossa. Pneumobilia is the result of sphincterotomy or sphincter dysfunction. 5. Hepatic steatosis. Electronically signed by: Mark Ayala M.D. 11/05/2017 10:16 PM Dictated Date/Time: 11/05/2017 10:07 PM Laboratory Results 11/05/17 21:23 Red Blood Count 4.52, Mean Corpuscular Volume 84.5, Mean Corpuscular Hemoglobin 28.8, Mean Corpuscular Hemoglobin Concent 34.0, Mean Platelet Volume 9.5, Neutrophils (%) (Auto) 63.2, Lymphocytes (%) (Auto) 28.0, Monocytes (%) (Auto) 6.9, Eosinophils (%) (Auto) 1.6, Basophils (%) (Auto) 0.1, Neutrophils # (Auto) 5.13, Lymphocytes # (Auto) 2.28, Monocytes # (Auto) 0.56, Eosinophils # (Auto) 0.13, Basophils # (Auto) 0.01 11/05/17 21:23 Test 11/05/17 21:23 11/05/17 21:46 White Blood Count 8.13 K/uL (4.8-10.8) Red Blood Count 4.52 M/uL (4.2-5.4) Hemoglobin 13.0 g/dL (12.0-16.0) Hematocrit 38.2 % (37-47) Mean Corpuscular Volume 84.5 fL (80-100) Mean Corpuscular Hemoglobin 28.8 pg (25-34) Mean Corpuscular Hemoglobin Concent 34.0 g/dl (32-36) Platelet Count 179 K/uL (130-400) Mean Platelet Volume 9.5 fL (7.4-10.4) Neutrophils (%) (Auto) 63.2 % Lymphocytes (%) (Auto) 28.0 % Monocytes (%) (Auto) 6.9 % Eosinophils (%) (Auto) 1.6 % Basophils (%) (Auto) 0.1 % Neutrophils # (Auto) 5.13 K/uL (1.4-6.5) Lymphocytes # (Auto) 2.28 K/uL (1.2-3.4) Monocytes # (Auto) 0.56 K/uL (0.11-0.59) Eosinophils # (Auto) 0.13 K/uL (0-0.5) Basophils # (Auto) 0.01 K/uL (0-0.2) RDW Standard Deviation 42.1 fL (36.4-46.3) RDW Coefficient of Variation 13.6 % (11.5-14.5) Immature Granulocyte % (Auto) 0.2 % Immature Granulocyte # (Auto) 0.02 K/uL (0.00-0.02) Anion Gap 7.0 mmol/L (3-11) Est Creatinine Clear Calc Drug Dose 79.9 ml/min Estimated GFR () 94.8 Estimated GFR (Non- 81.8 BUN/Creatinine Ratio 19.3 (10-20) Calcium Level 9.2 mg/dl (8.5-10.1) Total Bilirubin 0.5 mg/dl (0.2-1) Direct Bilirubin 0.1 mg/dl (0-0.2) Aspartate Amino Transf (AST/SGOT) 50 U/L (15-37) Alanine Aminotransferase (ALT/SGPT) 54 U/L (12-78) Alkaline Phosphatase 147 U/L (45-117) Total Protein 7.8 gm/dl (6.4-8.2) Albumin 4.1 gm/dl (3.4-5.0) Lipase 231 U/L (73-393) Urine Color YELLOW Urine Appearance CLEAR (CLEAR) Urine pH 7.5 (4.5-7.5) Urine Specific Ferdinand 1.020 (1.000-1.030) Urine Protein NEG (NEG) Urine Glucose (UA) NEG (NEG) Urine Ketones NEG (NEG) Urine Occult Blood 3+ (NEG) Urine Nitrite NEG (NEG) Urine Bilirubin NEG (NEG) Urine Urobilinogen NEG (NEG) Urine Leukocyte Esterase NEG (NEG) Urine WBC (Auto) 1-5 /hpf (0-5) Urine RBC (Auto) >30 /hpf (0-4) Urine Hyaline Casts (Auto) 1-5 /lpf (0-5) Urine Epithelial Cells (Auto) 10-20 /lpf (0-5) Urine Bacteria (Auto) NEG (NEG) Laboratory results as reviewed by me. Medications Administered Medications (Trade) Dose Ordered Sig/Nomi Route Start Time Stop Time Status Last Admin Dose Admin Ondansetron HCl (Zofran Inj) 4 mg NOW STAT IV 11/05/17 21:06 11/05/17 21:09 DC 11/05/17 23:08 4 MG Sodium Chloride 1,000 ml @ 999 mls/hr Q1H1M STAT IV 11/05/17 21:06 11/05/17 22:06 DC 11/05/17 21:42 999 MLS/HR Hydromorphone HCl (Dilaudid Inj) 0.5 mg STK-MED ONCE .ROUTE 11/05/17 23:06 11/05/17 23:07 DC 11/05/17 23:08 0.5 MG ED Course 3: The patient was evaluated in room B5. A complete history and physical exam was performed. 2105: Ordered Sodium Chloride 1,000 ml @ 999 mls/hr IV, Dilaudid 0.5 mg IV, and Zofran 4 mg IV 2300: Ordered Oxycodone HCl 1 homepack PO 2255: I reassessed the patient at this time. She is feeling better and resting comfortably. She refused her pain medication. I discussed the results and treatment plan with the patient. I answered all pertaining questions that she had. She expressed understanding and verbalized agreement. The patient will be discharged home. 2300: I reassessed the patient at this time. She states that she is not sure if she can take Bactrim, because it makes her tongue feel funny. Due to the cross reaction with Flomax, the patient will not be given Bactrim. She states that her pain is coming back and she would now like the pain medication. 2306: Ordered Hydromorphone HCl 0.5 mg IV Medical Decision This is a 57-year-old female presents with left flank pain. Differential diagnosis includes renal colic, obstructive uropathy, strain, diverticulitis, UTI. I did perform a limited focused review of portions of the patient's old chart on the electronic medical record. The patient has had no recent pertinent visits to this hospital. I did evaluate the patient as noted above. IV access was established. I did treat her with normal saline IV and Zofran IV. I also wrote for Dilaudid IV by the initially patient did not wish to have it because her pain improves spontaneously. I did order and personally review the patient's urine analysis as described above. She has hematuria but no signs of infection. I did order and review the patient's blood work as noted in the electronic medical record. I did order a CT of the abdomen and pelvis. I did review the images myself as well as the radiology report as described above. She has a distal 3 mm left ureteral stone with hydronephrosis. She also has intrarenal stones bilaterally. I did reassess the patient. I did discuss the test results with her. She did develop some pain and so she did accept the Dilaudid 0.5 mg IV. I did discuss Flomax with her but she has a reaction to Bactrim and there is the potential for cross reactivity with Flomax. We did hold off on this medication because of this. She was given OxyIR for pain control at home. She was given a prescription and a home pack. She was given precautions regarding this medication and its use. She does have a urologist and will follow up with that urologist. She will return for worsening symptoms or should she develop any new symptoms such as fever or vomiting. Her blood pressure did improve spontaneously. It was still elevated and so she was advised to have it rechecked by her doctor. [place] Drug Monitoring Program Search Results: patient reviewed within database Drug Monitoring Findings: She received three days of Oxycodone in August 2017. Medication Reconcilliation Current Medication List: was personally reviewed by me Blood Pressure Screening Patient's blood pressure: Elevated blood pressure Blood pressure disposition: Referred to PCP Impression Primary Impression: Obstructive uropathy Additional Impressions: Renal colic Elevated blood pressure reading Scribe Attestation The scribe's documentation has been prepared under my direct and personally reviewed by me in its entirety. I confirm that the note above accurately reflects all work, treatment, procedures, and medical decision making performed by me. Departure Information Dispostion Home / Self-Care Prescriptions Oxycodone Ir (Roxicodone Ir) 5 Mg Tab 5 MG PO Q4H Y for Pain, #20 TAB Prov: Jan Brewster M.D. 11/05/17 Referrals Jluis Doss D.O. (PCP) Forms HOME CARE DOCUMENTATION FORM, IMPORTANT VISIT INFORMATION Patient Instructions Kidney Stones Expectant Therapy, My [facility] Additional Instructions You have been examined and treated today on an emergency basis only. This is not a substitute for, or an effort to provide, complete comprehensive medical care. It is impossible to recognize and treat all injuries or illnesses in a single emergency department visit. It is therefore important that you follow up closely with your urologist. Call as soon as possible for an appointment. Return for worsening symptoms or if you develop fever, vomiting, or any other concerning symptoms. Problem Qualifiers
== END 2017-11-05 23:38 | disposition home or self-care (01) ==
LOC: C.EDB 20:46
DX: N13.2 Hydronephrosis with renal and ureteral calculous obstruction (principal); R03.0 Elevated blood-pressure reading, without diagnosis of hypertension; I10 Essential (primary) hypertension

== ENCOUNTER 2020-03-14 21:11 | Observation (INO) ==
[2020-03-14] MEDS ORDERED: ACETAMINOPHEN 1,000 MG/100 ML VIAL IV STA (21:53)
[2020-03-14] MEDS ORDERED: DEXAMETHASONE SOD INJ 10 MG/ML VIAL IV ONE (21:53)
[2020-03-14] MEDS ORDERED: SODIUM CHLORIDE 0.9% 1000ML 1,000 ML IV ONE (21:53)
[2020-03-14] MEDS ORDERED: PROCHLORPERAZINE 10 MG in SYRINGE 8 ML IV ONE (21:53)
[2020-03-14] MEDS ORDERED: DiphenhydrAMINE HCL 50 MG/ML VIAL IV STA (21:53)
[2020-03-14] MEDS ORDERED: ONDANSETRON INJ 2 MG/ML 2 ML VIAL IV STA (21:55)
--- NOTE | 2020-03-14 21:59 | Emergency Department Note ---
Impression & Plan Hypertensive urgency, Headache, Vomiting ED Provider Note NAME: STCAIE DUMAS AGE: 59 SEX: F : 1960 ARRIVES VIA: Walk-In INFORMANT: [Patient] ED PROVIDER(S): [Ramy Contreras MD] CHIEF COMPLAINT: Severe headache HISTORY OF PRESENT ILLNESS: The patient is a 59-year-old female presents to the ER with about 9 hours of a headache that she rates as severe. The headache started off as mild but became severe in the last few hours. She is now having nausea and vomiting. She feels her head is almost pounding. There has been no fever, no head trauma. She had no arm or leg weakness. The patient states that this issue started for her about 6 weeks ago with some neck pain. Her headaches have been intermittent ever since. She is seeing neurology and is using baclofen and amitriptyline. She had an MRI of her brain today, she is not sure of the results. The patient states that the last time she was in this ED for this kind of pain, she received a shot of some sort which seemed to relieve her symptoms. She is here for symptom control. Of note, the patient was noted to be quite hypertensive in triage. She states she is taking her blood pressure medications as prescribed. REVIEW OF SYSTEMS: See HPI for pertinent positives and negatives. A total of ten systems were reviewed and were otherwise negative. PMHx/PSHx: See Below SOCIAL HISTORY: See Below. PHYSICAL EXAM: GENERAL: Patient is in moderate distress, vomiting. HEENT: No acute trauma, normocephalic atraumatic, mucous membranes moist, no nasal congestion, no scleral icterus. Pupils equal and reactive to light. NECK: No stridor, no adenopathy, no meningismus, trachea is midline. LUNGS: Clear to auscultation bilaterally, no wheeze, no rhonchi, breath sounds equal. HEART: Without murmurs gallops or rubs, regular rate and rhythm. ABDOMEN: Soft, nontender, bowel sounds positive, no hernias, no peritonitis. EXTREMITIES: No cyanosis or edema, full range of motion of all the joints without pain or difficulty, no signs for acute trauma. NEUROLOGIC: Oriented x 3, no acute motor or sensory deficits, no focal weakness. No cerebellar dysfunction. SKIN: No rash, no jaundice, no diaphoresis. DIFFERENTIAL DIAGNOSIS: Migraine headache, meningitis, sinusitis, CO exposure, ICH, SAH, infection, tumor, headache, sinus thrombosis, arterial dissection, as well as other pathologies. EMERGENCY DEPARTMENT COURSE/PROCEDURES: case monitor An order was placed for cardiac monitoring. Patient was noted to have a heart rate of 66. There was a normal sinus rhythm. MEDICAL DECISION MAKING: There is no leukocytosis or concerning anemia. There is a normal platelet count. No significant electrolyte abnormality or kidney failure. Brain CT shows no acute bleed or mass-effect. On exam, the patient was vomiting. She was complaining of a headache, she was not febrile, there were no focal neurologic findings. She did not have meningismus. The patient was aggressively managed. She was given IV saline, IV Compazine, IV Zofran, IV Benadryl and IV Decadron. She received IV Tylenol. She required IV labetalol for blood pressure control. She was given IV Dilaudid for additional pain control. The patient's blood pressure is now better controlled. Her headache has reduced to a 2 or 3. She is much more comfortable. I do not feel comfortable with discharge home. The cause for this headache is unclear. Her blood pressure was quite high and at a dangerous level when she first arrived. I do think she requires some observation, blood pressure control and further symptom control. I did speak to the patient and case assembler. The on-call hospitalist was consulted. Past Med/Surg History Medical History High blood pressure Hyperlipidemia Rheumatoid arthritis Surgical History History of appendectomy (Resolved) History of hysterectomy (Resolved) Social History Smoking Status: Never smoker Preferred Language: Bulgarian Feels Safe at Home: Yes Allergies Allergies Allergy/AdvReac Type Severity Reaction Status Date / Time sulfamethoxazole Allergy Intermediate ITCHING Verified 03/14/20 22:11 trimethoprim Allergy Intermediate ITCHING Verified 03/14/20 22:11 naproxen AdvReac Intermediate NAUSEA AND Verified 03/14/20 22:11 VOMITNNG Home Meds Home Medications Medication Instructions Recorded Confirmed albuterol sulfate [Proventil HFA] 2 puff INHALATION Q6H PRN 01/24/20 03/14/20 atorvastatin 10 mg PO DAILY 01/24/20 03/14/20 fluticasone propionate 2 spray INTRANASAL DAILY 01/24/20 03/14/20 leflunomide 20 mg PO DAILY 01/24/20 03/14/20 losartan 100 mg PO DAILY 01/24/20 03/14/20 pantoprazole 40 mg PO DAILY 01/24/20 03/14/20 amitriptyline 10 mg PO HS 03/14/20 03/14/20 baclofen 10 mg PO BID 03/14/20 03/14/20 Results & Data (ED) Vital Signs Vital Signs - 24 hr 03/14/20 21:18 03/14/20 22:37 03/14/20 22:50 Temperature 36.6 C Temperature Source Oral Pulse Rate 92 H 69 Pulse Rate [Right Finger] 75 Respiratory Rate 18 16 15 Respiratory Effort / Characteristics Non-Labored Respiratory Depth Normal Blood Pressure 195/129 H 177/98 H Blood Pressure [Right Arm] 230/109 H Blood Pressure Mean 151 132 Blood Pressure Mean [Right Arm] 149 Blood Pressure Position [Right Arm] Lying Pulse Oximetry 98 95 93 Oxygen Delivery Method Room Air Room Air Sepsis Recent Fever Within 48 Hours No Sepsis New/Unexplained Change in Mental Status No Sepsis Action Taken by Nursing No Action Required 03/14/20 23:00 03/14/20 23:10 03/14/20 23:20 Temperature Temperature Source Pulse Rate 68 67 69 Pulse Rate [Right Finger] Respiratory Rate 12 18 12 Respiratory Effort / Characteristics Respiratory Depth Blood Pressure 161/89 H 184/93 H 180/87 H Blood Pressure [Right Arm] Blood Pressure Mean 126 119 131 Blood Pressure Mean [Right Arm] Blood Pressure Position [Right Arm] Pulse Oximetry 91 91 91 Oxygen Delivery Method Sepsis Recent Fever Within 48 Hours Sepsis New/Unexplained Change in Mental Status Sepsis Action Taken by Nursing 03/14/20 23:30 Temperature Temperature Source Pulse Rate 66 Pulse Rate [Right Finger] Respiratory Rate 16 Respiratory Effort / Characteristics Respiratory Depth Blood Pressure 160/81 H Blood Pressure [Right Arm] Blood Pressure Mean 102 Blood Pressure Mean [Right Arm] Blood Pressure Position [Right Arm] Pulse Oximetry 92 Oxygen Delivery Method Sepsis Recent Fever Within 48 Hours Sepsis New/Unexplained Change in Mental Status Sepsis Action Taken by Retirement Medications Current Medication List: was personally reviewed by me Laboratory Data Attestation: I reviewed the patient's lab results. Result diagrams: 03/14/20 22:04 03/14/20 22:04 Lab Results 03/14/20 03/14/20 Range/Units 22:04 22:04 WBC 9.93 (4.8-10.8) K/uL RBC 5.14 (4.2-5.4) M/uL Hgb 14.4 (12.0-16.0) g/dL Hct 43.3 (37-47) % MCV 84.2 (80-100) fL MCH 28.0 (25-34) pg MCHC 33.3 (32-36) g/dL RDW Std Deviation 39.5 (36.4-46.3) fL RDW Coeff of Rad 12.9 (11.5-14.5) % Plt Count 143 (130-400) K/uL MPV 10.4 (7.4-10.4) fL Sodium 140 (136-145) mmol/L Potassium 3.5 (3.5-5.1) mmol/L Chloride 113 H (98-107) mmol/L Carbon Dioxide 21 (21-32) mmol/L Anion Gap 6.0 (3-11) BUN 13 (7-18) mg/dl Creatinine 0.79 (0.6-1.2) mg/dl Est Cr Clr Drug Dosing 80.7 ml/min Est GFR ( Amer) 96.3 Est GFR (Non-Af Amer) 83.1 BUN/Creatinine Ratio 16.0 (10-20) Glucose 139 H (70-99) mg/dl Calcium 9.3 (8.5-10.1) mg/dl Administered Medications Discontinued Medications Dexamethasone (Decadron) 10 mg IV NOW ONE Stop: 03/14/20 21:54 Last Admin: 03/14/20 22:11 Dose: 10 mg Documented by: [id number] Diphenhydramine HCl (Benadryl) 50 mg IV NOW STA Stop: 03/14/20 21:54 Last Admin: 03/14/20 22:11 Dose: 50 mg Documented by: [id number] Hydromorphone HCl (Dilaudid) 0.5 mg IV NOW STA Stop: 03/14/20 22:34 Last Admin: 03/14/20 22:39 Dose: 0.5 mg Documented by: [id number] Sodium Chloride (Nss 1000ml) 1,000 mls @ 999 mls/hr IV .Q1H1M ONE Stop: 03/14/20 22:53 Last Infusion: 03/14/20 23:12 Dose: 0 mls/hr Documented by: [id number] Admin: 03/14/20 22:11 Dose: 999 mls/hr Documented by: [id number] Prochlorperazine 10 mg/ (Syringe) 10 mls @ 5 mls/min IV ONE ONE Stop: 03/14/20 21:54 Last Admin: 03/14/20 22:11 Dose: 5 mls/min Documented by: [id number] Acetaminophen (Ofirmev) 1,000 mg in 100 mls @ 400 mls/hr IV NOW STA Stop: 03/14/20 22:07 Last Infusion: 03/14/20 22:27 Dose: 0 mls/hr Documented by: [id number] Admin: 03/14/20 22:12 Dose: 400 mls/hr Documented by: [id number] Ketorolac Tromethamine (Toradol) 15 mg IV NOW STA Stop: 03/14/20 22:28 Last Admin: 03/14/20 22:45 Dose: Not Given Documented by: [id number] Labetalol HCl (Normodyne) 10 mg IV NOW STA Stop: 03/14/20 22:34 Last Admin: 03/14/20 22:39 Dose: 10 mg Documented by: [id number] Cosigned by: [id number] Ondansetron HCl (Zofran) 4 mg IV NOW STA Stop: 03/14/20 21:56 Last Admin: 03/14/20 22:12 Dose: 4 mg Documented by: [id number] Prochlorperazine (Compazine) Confirm Administered Dose 10 mg .ROUTE .STK-MED ONE Stop: 03/14/20 22:08 Last Admin: 03/14/20 22:11 Dose: Not Given Documented by: [id number] Imaging Data Radiologist's Impression: Brain CT without contrast: There is no intracranial hemorrhage or other acute intracranial abnormality. No mass lesion or mass- effect. The ventricles appear normal. Paranasal sinuses and mastoid air cells are clear. Blood Pressure Blood Pressure Findings: Elevated blood pressure Blood Pressure Disposition: further management by hospitalist Head Trauma GCS Score: 15 Discharge Plan Visit Data Chief Complaint: Headache Stated Complaint: HEADACHE, SICK ED Provider: Ramy Contreras Discharge Problem: Hypertensive urgency, Headache, Vomiting Patient Disposition: Admitted As Inpatient Condition: Good Forms Stand Alone Forms: My [facility] Prescriptions Prescriptions: No Action amitriptyline 10 mg Tablet 10 mg PO HS RF: 0 baclofen 10 mg Tablet 10 mg PO BID RF: 0 albuterol sulfate [Proventil HFA] 90 mcg/actuation Hfa Aerosol Inhaler 2 puff INHALATION Q6H PRN (Reason: Cough) RF: 0 atorvastatin 10 mg Tablet 10 mg PO DAILY RF: 0 fluticasone propionate 50 mcg/actuation [place],Suspension 2 spray INTRANASAL DAILY RF: 0 losartan 100 mg Tablet 100 mg PO DAILY RF: 0 pantoprazole 40 mg Tablet,Delayed Release (Dr/Ec) 40 mg PO DAILY RF: 0 leflunomide 20 mg Tablet 20 mg PO DAILY RF: 0 Referrals Referrals: Jluis oDss DO [Primary Care Provider] - Discharge Problem: Headache Qualifiers: Headache type: unspecified Headache chronicity pattern: acute headache Intractability: intractable Qualified Code(s): R51 - Headache Vomiting Qualifiers: Vomiting type: unspecified Vomiting Intractability: non-intractable Nausea presence: with nausea Qualified Code(s): R11.2 - Nausea with vomiting, unspecified
[2020-03-14] MEDS ORDERED: PROCHLORPERAZINE 5 MG/ML 2 ML VIAL ONE (22:07)
[2020-03-14 22:15] LABS: Hematocrit (blood only) 43.3 % (37-47); Hemoglobin 14.4 g/dL (12.0-16.0); Mean Corpuscular Hgb Conc 33.3 g/dL (32-36); Mean Corpuscular Volume 84.2 fL (80-100); Mean Platelet Volume 10.4 fL (7.4-10.4); Platelet Count 143 K/uL (130-400); RDW Coefficient of Variation 12.9 % (11.5-14.5); RDW Standard Deviation 39.5 fL (36.4-46.3); Red Blood Count 5.14 M/uL (4.2-5.4); White Blood Count 9.93 K/uL (4.8-10.8)
[2020-03-14] MEDS ORDERED: KETOROLAC TROMETHAMINE 15 MG/ML VIAL IV STA (22:27)
[2020-03-14] MEDS ORDERED: HYDROmorphone INJ 0.5 MG/0.5 ML SYR IV STA (22:33)
[2020-03-14] MEDS ORDERED: LABETALOL HCL IV 5 MG/ML 20ML IV STA (22:33)
[2020-03-14 22:36] LABS: Blood Urea Nitrogen 13 mg/dl (7-18); Calcium 9.3 mg/dl (8.5-10.1); Carbon Dioxide 21 mmol/L (21-32); Chloride 113 mmol/L (98-107); Creatinine Clr Calc Pharmacy 80.7 ml/min; Est GFR (African American) 96.3; Est GFR (Non-African American) 83.1; Glucose 139 mg/dl (70-99); Sodium 140 mmol/L (136-145)
[2020-03-14 22:42] LABS: Potassium 3.5 mmol/L (3.5-5.1)
[2020-03-15] MEDS ORDERED: LOSARTAN POTASSIUM 50 MG TAB PO STA (00:21)
[2020-03-15 00:44] LABS: Albumin Level 4.2 gm/dl (3.4-5.0); Aspartate Aminotransferase 43 U/L (15-37); Bilirubin,Total 0.4 mg/dl (0.2-1); Magnesium 1.6 mg/dl (1.8-2.4); Total Protein 7.3 gm/dl (6.4-8.2)
--- NOTE | 2020-03-15 00:57 | History & Physical Report ---
Date of Service March 15, 2020 Assessment & Plan (1) Hypertensive crisis: Multifactorial : Neck pain/headache of more than a month duration (? Cervical migraine rule out brain tumor) Recent steroid Rx for above symptoms ? Increased leflunomide dose from November 2019, hx rheumatoid arthritis as per records (theoretical medication side effects of hypertension and headache as per formulary) Transaminitis, possible NAFLD, hepatic steatosis on outpatient abdominal ultrasound August 2019 Prediabetes as per records, hemoglobin A1c of 5.19 February 2020 past tobacco abuse OBS PCU Facilitate Losartan Initiate beta-lucio for additional BP control and possible migraine prophylaxis if BP still uncontrolled MRI brain RE worsening headache symptoms Follow outpatient cervical MRI results Neurology consult RE neck pain/headache follow-up 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 (Dr. Richmond) regarding possible association between patient symptoms and leflunomide dose increase from 3 months ago. DVT prophylaxis per Lovenox subcu Full code Text document was generated using [employer] voice recognition software. It may contain grammatical or spelling errors. Kindly contact undersigned for clarification of any documentation item in question. History of Present Illness Chief Complaint: Headache Primary Care Provider: Jluis Doss DO History obtained from patient and records. Medical history significant for rheumatoid arthritis as per records, hypertension, hyperlipidemia, past tobacco abuse, urolithiasis, GERD, prediabetes as per records. Last confinement September 2017 under General Surgery service for postcholecystectomy bile leak. Patient seen at [facility] last November 2019 for outpatient follow-up for rheumatoid arthritis. RUE and right knee pain at time of visit. Patient leflunomide increased in dose from 10 to 20 mg daily. 6 weeks ago, patient seen at the ER for achy neck discomfort radiating to the head without recollection of antecedent trauma. CT cervical spine did not show fracture or misalignment. Moderate to severe foraminal stenosis on the left at C2-3 and mild to moderate foraminal stenosis bilaterally at C5-6 as per report. Patient discharged home oxycodone as needed prescription. Persistent but tolerable pain on follow-up with PCP 3 weeks ago. Patient prescribed baclofen and prednisone course for possible neck strain which helped her discomfort. SBP at home 1 40-1 70s as per patient. Patient denies OTC NSAID intake, unusual stress. Outpatient [facility] Neurology visit last week for neck pain. Cervical MRI recommended by neurologist to rule out acute odontoid instability secondary to rheumatoid arthritis. SBP 170s at time of specialist visit as per report. Patient completed cervical MRI study yesterday afternoon, results of which are still pending. Headache worse as if it was going to explode as per patient, neck pain not so bad after MRI procedure. SBP 230s upon arrival at the ER. Patient given IV labetalol at the ER. Patient received Benadryl, Decadron, Zofran, Compazine, and Dilaudid at the ER for headache symptoms. Patient currently comfortable SBP currently 160s. MEDICAL HISTORY: As above. SURGERIES: She had cholecystectomy, appendectomy, hysterectomy, tube removal. FAMILY HISTORY: Heart disease, stroke, liver cancer, diabetes. PERSONAL AND SOCIAL HISTORY: Past tobacco use. No chronic intake of alcoholic beverages. 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 Allergies Allergy/AdvReac Type Severity Reaction Status Date / Time sulfamethoxazole Allergy Intermediate ITCHING Verified 03/14/20 22:11 trimethoprim Allergy Intermediate ITCHING Verified 03/14/20 22:11 naproxen AdvReac Intermediate NAUSEA AND Verified 03/14/20 22:11 [id number] Home Medications Home Medications Medication Instructions Recorded Confirmed Type albuterol sulfate [Proventil HFA] 2 puff INHALATION Q6H PRN 01/24/20 03/14/20 History atorvastatin 10 mg PO DAILY 01/24/20 03/14/20 History fluticasone propionate 2 spray INTRANASAL DAILY 01/24/20 03/14/20 History leflunomide 20 mg PO DAILY 01/24/20 03/14/20 History losartan 100 mg PO DAILY 01/24/20 03/14/20 History pantoprazole 40 mg PO DAILY 01/24/20 03/14/20 History amitriptyline 10 mg PO HS 03/14/20 03/14/20 History baclofen 10 mg PO BID 03/14/20 03/14/20 History Past Med/Surg History Medical History High blood pressure Hyperlipidemia Rheumatoid arthritis Surgical History History of appendectomy (Resolved) History of hysterectomy (Resolved) Social History Smoking Status: Never smoker Hx Alcohol Use: No Hx Substance Use: No Preferred Language: Cuban Beliefs That Will Affect Care: None Current Living Situation: Spouse Feels Safe at Home: Yes Safety Concerns: Feels Safe At This Time Review of Systems Review of Systems: As per HPI, all 10 systems reviewed, all other ROS negative Physical Exam Physical Exam: GENERAL: Comfortable, lethargy, pleasant, no respiratory distress SKIN: Normal color, warm HEENT: [place] palpebral conjunctivae, no ptosis, dry buccal mucosa NECK : Supple, no overt limitation in range of motion, no tenderness CHEST : CTA, no tenderness HEART : RRR, no obvious murmurs ABDOMEN: Some distention, nontender EXTREMITIES : No LE swelling/tenderness, no other conspicuous deformities noted NEUROLOGIC : Coherent, no facial asymmetry, no other gross focality Results & Data Results & Data ([facility]) Vital Signs (Past 12 Hours) Vital Signs Temp Pulse Pulse Resp BP BP Pulse Ox 03/14/20 23:40 69 12 176/91 H 93 03/14/20 23:30 66 16 160/81 H 92 03/14/20 23:20 69 12 180/87 H 91 03/14/20 23:10 67 18 184/93 H 91 03/14/20 23:00 68 12 161/89 H 91 03/14/20 22:50 69 15 177/98 H 93 03/14/20 22:37 75 16 230/109 H 95 03/14/20 21:18 36.6 C 92 H 18 195/129 H 98 Laboratory Results Laboratory Results WBC 9.93 K/uL (4.8-10.8) 03/14/20 22:04 RBC 5.14 M/uL (4.2-5.4) 03/14/20 22:04 Hgb 14.4 g/dL (12.0-16.0) 03/14/20 22:04 Hct 43.3 % (37-47) 03/14/20 22:04 MCV 84.2 fL (80-100) 03/14/20 22:04 MCH 28.0 pg (25-34) 03/14/20 22:04 MCHC 33.3 g/dL (32-36) 03/14/20 22:04 RDW Std Deviation 39.5 fL (36.4-46.3) 03/14/20 22:04 RDW Coeff of Rad 12.9 % (11.5-14.5) 03/14/20 22:04 Plt Count 143 K/uL (130-400) 03/14/20 22:04 MPV 10.4 fL (7.4-10.4) 03/14/20 22:04 Sodium 140 mmol/L (136-145) 03/14/20 22:04 Potassium 3.5 mmol/L (3.5-5.1) 03/14/20 22:04 Chloride 113 mmol/L (98-107) H 03/14/20 22:04 Carbon Dioxide 21 mmol/L (21-32) 03/14/20 22:04 Anion Gap 6.0 (3-11) 03/14/20 22:04 BUN 13 mg/dl (7-18) 03/14/20 22:04 Creatinine 0.79 mg/dl (0.6-1.2) 03/14/20 22:04 Est Cr Clr Drug Dosing 80.7 ml/min 03/14/20 22:04 Est GFR ( Amer) 96.3 03/14/20 22:04 Est GFR (Non-Af Amer) 83.1 03/14/20 22:04 BUN/Creatinine Ratio 16.0 (10-20) 03/14/20 22:04 Glucose 139 mg/dl (70-99) H 03/14/20 22:04 Calcium 9.3 mg/dl (8.5-10.1) 03/14/20 22:04 Magnesium 1.6 mg/dl (1.8-2.4) L 03/14/20 22:04 Total Bilirubin 0.4 mg/dl (0.2-1) 03/14/20 22:04 AST 43 U/L (15-37) H 03/14/20 22:04 Total Protein 7.3 gm/dl (6.4-8.2) 03/14/20 22:04 Albumin 4.2 gm/dl (3.4-5.0) 03/14/20 22:[address] head initial read: No intracranial hemorrhage or acute intracranial abnormality. No mass lesion or mass-effect. Normal ventricles. Normal paranasal sinuses/mastoid air cells are clear. Chest x-ray as per my interpretation cardiomegaly, atelectasis EKG pending
[2020-03-15 01:06] LABS: Alanine Aminotransferase 52 U/L (12-78); Alkaline Phosphatase 127 U/L (45-117); Bilirubin Direct < 0.1 mg/dl (0-0.2)
[2020-03-15] MEDS ORDERED: MoRPHine SULFATE 4 MG/ML 1 ML CARP\\VIAL IV PRN (02:47)
[2020-03-15] MEDS ORDERED: PROMETHAZINE HCL 12.5 MG in SODIUM CHLORIDE 0.9% 50 ML IV PRN (02:47)
[2020-03-15] MEDS ORDERED: ACETAMINOPHEN 325 MG TAB PO PRN ×2 (02:47→04:07)
[2020-03-15] MEDS ORDERED: LORazepam 0.25 MG/0.5 ML VIAL IV PRN (02:47)
[2020-03-15] MEDS ORDERED: TRAMADOL HCL 50 MG TABLET ONE (02:58)
[2020-03-15] MEDS: LACTATED RINGER'S 1,000 ML IV ONE ×2 (03:01→07:42)
[2020-03-15] MEDS ORDERED: METOPROLOL TARTRATE 25 MG TAB PO SCH (03:50)
[2020-03-15] MEDS ORDERED: GADOBUTROL 65ML VIAL IV ONE (04:56)
[2020-03-15 05:41] LABS: Estimated Average Glucose 123 mg/dl; Hemoglobin A1C 5.9 % (4.5-5.6)
--- NOTE | 2020-03-15 06:38 | CT Scan Report ---
CT head/brain wo con CLINICAL HISTORY: 59 years-old Female with severe headache. Acute severe headache TECHNIQUE: Multiple axial CT images of the head were obtained without contrast. A dose lowering tech nique was utilized adhering to the principles of ALARA. CT DOSE: 537.48 mGy.cm COMPARISON: Head CT 10/15/2016, brain MRI 03/15/2020 FINDINGS: No acute intracranial hemorrhage, midline shift, intracranial mass, hydrocephalus, territorial ischem ia or abnormal extra-axial collection. The calvarium is intact. The paranasal sinuses, mastoid air cells, and middle ear cavities are clear . IMPRESSION: No acute intracranial abnormality. ACT 112: Negative or not required by law. The above report was generated using voice recognition software. It may contain grammatical, syntax o r spelling errors. Electronically signed by: Jimi Moser M.D. 03/15/2020 6:36 AM
--- NOTE | 2020-03-15 07:02 | Magnetic Resonance Report ---
MRI OF THE BRAIN WITHOUT AND WITH IV CONTRAST CLINICAL HISTORY: Headache. COMPARISON STUDY: Head CT March 14, 2020 and October 15, 2016. TECHNIQUE: Utilizing a 1.5 Karla magnet and dedicated coil, multiplanar, multiecho imaging of the br ain was performed pre and postcontrast administration. IV administration of 7.4 mL of Gadavist contr ast was uneventful. FINDINGS: There are no foci of restricted diffusion to suggest acute infarct. No acute intracranial h emorrhage, midline shift or mass effect is present. Brain volume is normal. Ventricular system is nor mal. The basilar cisterns are patent. There are no extra-axial collections. No intracranial mass or p athologic enhancement is identified. Flow-voids for the major intracranial vessels are present. Minim al white matter T2 hyperintensity is noted. Calvarial signal is normal. Branch unremarkable. There is no evidence for sinusitis. There is no mastoid fluid. IMPRESSION: No acute intracranial findings. ACT 112: Negative or not required by law. Electronically signed by: Jean Pierre Watkins M.D. 03/15/2020 7:01 AM
--- NOTE | 2020-03-15 07:21 | XRay Report ---
XR chest 1V portable CLINICAL HISTORY: Hypertension. COMPARISON STUDY: Chest CT March 11, 2016. FINDINGS: Lung volumes are normal. There is no pneumothorax or pleural effusion. Mild bibasilar opaci ties are present. There is pulmonary vascular ingestion. Cardiomediastinal silhouette is stable. IMPRESSION: 1. Pulmonary vascular congestion with possible mild pulmonary edema. 2. Bibasilar opacities which favor atelectasis. Infectious process could appear similar. ACT 112: Negative or not required by law. Electronically signed by: Jean Pierre Watkins M.D. 03/15/2020 7:20 AM
[2020-03-15 07:33] LABS: Hematocrit (blood only) 36.5 % (37-47); Hemoglobin 12.6 g/dL (12.0-16.0); Mean Corpuscular Hgb Conc 34.5 g/dL (32-36); Mean Corpuscular Volume 83.9 fL (80-100); Mean Platelet Volume 9.7 fL (7.4-10.4); Platelet Count 126 K/uL (130-400); RDW Coefficient of Variation 12.9 % (11.5-14.5); RDW Standard Deviation 39.2 fL (36.4-46.3); Red Blood Count 4.35 M/uL (4.2-5.4); White Blood Count 4.73 K/uL (4.8-10.8)
[2020-03-15 07:35] LABS: Basophils # (auto) 0.01 K/uL (0-0.2); Basophils % (auto) 0.2 %; Immature Granulocytes # (auto) 0.01 K/uL (0.00-0.02); Immature Granulocytes % (auto) 0.2 %; Lymphocytes # (auto) 0.65 K/uL (1.2-3.4); Lymphocytes % (auto) 13.7 %; Monocytes # (auto) 0.05 K/uL (0.11-0.59); Monocytes % (auto) 1.1 %; Neutrophils # (auto) 4.01 K/uL (1.4-6.5); Neutrophils % (auto) 84.8 %
[2020-03-15] MEDS: ATORVASTATIN 10 MG TAB PO SCH (08:27)
[2020-03-15] MEDS: FLUTICASONE PROPIONATE NA SPR 16 GM BTL SCH (08:27)
[2020-03-15] MEDS: BACLOFEN 10 MG TAB PO SCH ×2 (08:27→19:58)
[2020-03-15] MEDS ORDERED: PANTOprazole 40 MG TAB PO SCH (09:00)
[2020-03-15] MEDS ORDERED: LEFLUNOMIDE 10 MG TAB PO SCH (09:00)
[2020-03-15] MEDS ORDERED: ENOXAPARIN INJ 40 MG/0.4 ML SYR SQ SCH (09:00)
[2020-03-15] MEDS ORDERED: AMLODIPINE BESYLATE 5 MG TAB PO SCH (09:30)
[2020-03-15] MEDS: LOSARTAN POTASSIUM 50 MG TAB PO SCH (10:06)
[2020-03-15] MEDS: MAGNESIUM OXIDE 400 MG TAB PO SCH ×2 (10:06→20:00)
[2020-03-15] MEDS ORDERED: AMLODIPINE BESYLATE 5 MG TAB PO ONE (11:57)
[2020-03-15] MEDS: HydrALAZINE HCL 20 MG/ML VIAL IV PRN ×2 (12:11→19:50)
[2020-03-15] MEDS: TRAMADOL HCL 50 MG TABLET PO PRN ×3 (12:17→19:49)
[2020-03-15] MEDS ORDERED: hydroCHLOROthiazide 25 MG TAB PO STA (12:56)
--- NOTE | 2020-03-15 13:19 | Hospitalist Progress Note ---
Date of Service March 15, 2020 Assessment & Plan (1) Hypertensive crisis: Text document was generated using [employer] voice recognition software. It may contain grammatical or spelling errors. Kindly contact undersigned for clarification of any documentation item in question. (2) Hypertensive urgency: underlying headache likely contributing add Amlodipine 10m po daily, HCTZ 12.5mg po daily continue Losartan 100mg po daily if not improving, may need work up for secondary hypertension Headache likely Migraine Brain MRI: unrevealing Cervical MRI: no cord compression per Neuro add Zanaflex PRN increased Amitryptiline to 25mg po HS monitor RA may reduce Leflunomide to 10mg daily for now as per Dr. Richmond Transaminitis, possible NAFLD, hepatic steatosis on outpatient abdominal ultrasound August 2019 Prediabetes as per records, hemoglobin A1c of 5.19 February 2020 past tobacco abuse DVT prophylaxis SCDs only in light of uncontrolled hypertension Full code Disposition possible d/c home tomorrow when stable Admission and Anticipated Discharge Date Admission Date: March 15, 2020 Subjective ff up for headache, hypertension seen sitting up in bed, not in distress reports 5/10 headache, mostly parietal and posterior denies BOV, dizziness, chest pain, SOB, palpitations no focal weakness or numbness no other symptoms Review of Systems Review of Systems: All systems reviewed & are unremarkable except as noted in HPI & below Physical Exam Physical Exam: General- oriented x 3, not in distress, speaks in sentences with no effort or accessory muscle use Head- atraumatic Eyes- PERRL, EOMI, anicteric ENT- oropharynx clear Neck- supple, no JVD, no adenopathy, no thyromegaly; carotids +2/2, no bruits appreciated Lungs- clear to auscultation bilaterally, no rales/wheezes Heart- normal rate, regular rhythm; no murmur, no gallop, no rub appreciated Abdomen- normal bowel sounds, nondistended, soft, nontender, no masses or hepatosplenomegaly Extremities- no pretibial edema, no calf tenderness; peripheral pulses intact Neuro- alert, oriented x 3; CN 2-12 grossly intact; motor 5/5 bilaterally;sensation 100% on all extremities; no other gross focal neurologic deficits Skin- warm & dry Results & Data Results & Data ([place]) Vital Signs (Past 12 Hours) Vital Signs Temp Pulse Pulse Pulse Resp BP BP 03/15/20 12:49 180/94 H 03/15/20 11:51 188/85 H 03/15/20 11:18 36.6 C 72 18 184/75 H 03/15/20 09:31 65 03/15/20 07:20 36.6 C 63 18 164/83 H 03/15/20 05:19 66 166/84 H 03/15/20 02:47 36.4 C L 68 18 179/94 H 03/15/20 02:00 67 12 158/80 H 03/15/20 01:30 68 12 152/81 H Pulse Ox 03/15/20 12:49 03/15/20 11:51 03/15/20 11:18 94 03/15/20 09:31 03/15/20 07:20 93 03/15/20 05:19 03/15/20 02:47 99 03/15/20 02:00 93 03/15/20 01:30 93 Laboratory Results Laboratory Results - last 24 hr 03/14/20 03/14/20 03/14/20 22:04 22:04 22:04 WBC 9.93 RBC 5.14 Hgb 14.4 Hct 43.3 MCV 84.2 MCH 28.0 MCHC 33.3 RDW Std Deviation 39.5 RDW Coeff of Rad 12.9 Plt Count 143 MPV 10.4 Immature Gran % (Auto) Neut % (Auto) Lymph % (Auto) Maury % (Auto) Eos % (Auto) Baso % (Auto) Neut # (Auto) Lymph # (Auto) Maury # (Auto) Eos # (Auto) Baso # (Auto) Immature Gran # (Auto) Sodium 140 Potassium 3.5 Chloride 113 H Carbon Dioxide 21 Anion Gap 6.0 BUN 13 Creatinine 0.79 Est Cr Clr Drug Dosing 80.7 Est GFR ( Amer) 96.3 Est GFR (Non-Af Amer) 83.1 BUN/Creatinine Ratio 16.0 Glucose 139 H Estimat Average Glucose 123 Hemoglobin A1c 5.9 H Calcium 9.3 Magnesium 1.6 L Total Bilirubin 0.4 Direct Bilirubin < 0.1 AST 43 H ALT 52 Alkaline Phosphatase 127 H Total Protein 7.3 Albumin 4.2 Hepatitis C Ab Screen 03/15/20 03/15/20 07:01 07:01 WBC 4.73 L D RBC 4.35 Hgb 12.6 Hct 36.5 L MCV 83.9 MCH 29.0 MCHC 34.5 RDW Std Deviation 39.2 RDW Coeff of Rad 12.9 Plt Count 126 L MPV 9.7 Immature Gran % (Auto) 0.2 Neut % (Auto) 84.8 Lymph % (Auto) 13.7 Maury % (Auto) 1.1 Eos % (Auto) 0.0 Baso % (Auto) 0.2 Neut # (Auto) 4.01 Lymph # (Auto) 0.65 L Maury # (Auto) 0.05 L Eos # (Auto) 0.00 Baso # (Auto) 0.01 Immature Gran # (Auto) 0.01 Sodium Potassium Chloride Carbon Dioxide Anion Gap BUN Creatinine Est Cr Clr Drug Dosing Est GFR ( Amer) Est GFR (Non-Af Amer) BUN/Creatinine Ratio Glucose Estimat Average Glucose Hemoglobin A1c Calcium Magnesium Total Bilirubin Direct Bilirubin AST ALT Alkaline Phosphatase Total Protein Albumin Hepatitis C Ab Screen Neg
[2020-03-15] MEDS: GABAPENTIN 300 MG CAP PO SCH ×2 (13:48→20:01)
--- NOTE | 2020-03-15 16:02 | Consultation Report ---
DATE OF CONSULTATION: 03/15/2020 NEUROLOGY CONSULTATION CHIEF COMPLAINT: Headache HISTORY OF PRESENT ILLNESS: A 59-year-old woman with a history of frequent headaches and rheumatoid arthritis, hypertension, hyperlipidemia, and prediabetes, admitted on 03/15 for headache. She was seen in early November in rheumatology for her rheumatoid arthritis and patient's leflunomide was increased. Six weeks ago, she was seen in the ER for neck discomfort radiating to her head without any history of trauma. CT cervical spine showed no fracture or misalignment. It showed [id number] foraminal stenosis at the left C2-C3 and bilateral stenosis at C5-C6. She was discharged to home. She was prescribed baclofen and prednisone for her neck strain. She was then seen in [facility] for neck pain. Cervical spine MRI was recommended by the neurologist to rule out odontoid instability related to her rheumatoid arthritis. The patient completed the MRI cervical spine study on the with results still pending. She presented to the ER as she felt she had a severe headache, which felt like her head was going to explode. This was after her MRI procedure. Her systolic blood pressure was noted to be in the 230s upon arrival. She was given IV labetalol in the ER. She also received Benadryl, Decadron, Zofran, Compazine and Dilaudid for her headache. Systolic blood pressure remained elevated in the 160s. She was then further admitted for hypertensive crisis. Neurology was consulted for evaluation of headache. Patient now reporting headache is very mild and 3/10. Headaches associated with N/V. Posterior and radiate to the front. Has 1-2 headaches per week for many years. Has photophobia and phonophobia. Likes to rest when she gets a headache. Elavil helps her sleep at night. ALLERGIES: NAPROXEN; TRIMETHOPRIM, SULFAMETHOXAZOLE. HOME MEDICATIONS: albuterol, atorvastatin, leflunomide, losartan 100 mg daily, Protonix 40 mg daily, amitriptyline 10 mg nightly, baclofen 10 mg twice daily. PAST MEDICAL HISTORY: Rheumatoid arthritis, hypertension, hyperlipidemia, past tobacco abuse, urolithiasis, gastroesophageal reflux disease, prediabetes. PAST SURGICAL HISTORY: She has a history of cholecystectomy, appendectomy, hysterectomy. FAMILY HISTORY: She has a history of heart disease, family history of stroke as well as liver cancer and diabetes. SOCIAL HISTORY: She is a former smoker, no history of alcohol abuse. 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 REVIEW OF SYSTEMS: A 15-point review of systems was conducted and is negative except as noted above in the HPI. PHYSICAL EXAMINATION: VITAL SIGNS: Blood pressure is 180/94, pulse is 72, respiratory rate 18, temperature is 36.6, O2 sat is 94% on room air. EXAM: Constitutional: appearance normally developed Face: normocephalic and atraumatic Eyes: normal lids, normal conjunctiva Neck: supple Respiratory: normal effort Cardiovascular: normal pulses Abdomen: non distended Skin: no rashes, lesions, or ulcers noted Psychiatric: normal mood and normal affect NEUROLOGIC EXAMINATION: Appearance: no acute distress Orientation: awake, alert and oriented x 3 Mental Status: alert Attention: normal Knowledge: appropriate Language: no aphasia Speech: no dysarthria Cranial Nerves: CN 2 - no visual defect on confrontation and pupils round, equal, reactive to light CN 3, 4, 6 - extra-ocular movements intact CN 5 - facial sensation intact CN 7 - no facial asymmetry CN 8 - intact hearing CN 9, 10 - palate symmetric CN 11 - good shoulder shrug CN 12 - tongue midline Gait:deferred Coordination: no ataxia with finger to nose testing Sensory: intact and symmetric to light touch Muscle Tone: normal Muscle exam: Reflexes: 1+ at the knees and biceps, No ankle clonus, [place] Negative DIAGNOSTIC TESTING AND LABORATORY VALUES: WBC is 4.73, hemoglobin is 12.6, platelet count is 126. Sodium is 140, potassium 3.5, chloride 113, creatinine 0.79, glucose 139, magnesium is 1.6, AST is 43, ALT is 52, alkaline phosphatase is 127, lipase is 231. Urinalysis showed 3+ occult blood, greater than 30 RBCs, 10-20 epithelial cells. Hepatitis screen was negative. IMAGING: Brain MRI with and without contrast showed no acute intracranial abnormality. MRI cervical spine reviewed. Mild central disc bulging. No cord compression. Final read pending. ASSESSMENT AND PLAN: A 59-year-old woman with history of rheumatoid arthritis, admitted with worsening headache in the setting of accelerated hypertension. Today reports headaches is improved and has a mild posterior headache. Neurology is consulted for further recommendations regarding headache management. MRI brain with and without contrast was negative for any acute intracranial abnormality. I reviewed her MRI cervical spine imaging performed at [facility]. My impression is no cord compression or cord signal changes. I suspect this patient has migraine headaches with primary stabbing component. I will defer to primary hospitalist team for management of her elevated blood pressures and medication adjustments. In regards to her headaches, recommend increasing home dose of Elavil to 25 mg nightly. Recommend stopping Baclofen and switching to Zanaflex 4 mg tablet Q8hr as needed for severe headache. Ok to discharge from neurology standpoint. Can follow up with Dr. Soliman as outpatient. Please call me with any further questions or concerns. CELENAD
[2020-03-15] MEDS ORDERED: TIZANIDINE HCL 4 MG TABLET PO PRN (20:47)
[2020-03-15] MEDS ORDERED: AMITRIPTYLINE HCL 25 MG TAB PO SCH (21:00)
[2020-03-15] MEDS ORDERED: AMITRIPTYLINE HCL 10 MG TAB PO SCH (21:00)
--- NOTE | 2020-03-16 06:55 | Electrocardiogram Report ---
Test Reason : Blood Pressure : / mmHG Vent. Rate : 060 BPM Atrial Rate : 060 BPM P-R Int : 160 ms QRS Dur : 076 ms QT Int : 512 ms P-R-T Axes : 054 034 067 degrees QTc Int : 512 ms Normal sinus rhythm Prolonged QT Abnormal ECG When compared with ECG of 16-SEP-2017 15:57, QT has lengthened Confirmed by Manuel Truong ([id number]) on 03/16/2020 6:55:14 AM Referred By: REFERRED SELF Confirmed By:Manuel Truong
[2020-03-16] MEDS: TRAMADOL HCL 50 MG TABLET PO PRN (07:36)
[2020-03-16] MEDS: ATORVASTATIN 10 MG TAB PO SCH (08:23)
[2020-03-16] MEDS: LOSARTAN POTASSIUM 50 MG TAB PO SCH (08:23)
[2020-03-16] MEDS: MAGNESIUM OXIDE 400 MG TAB PO SCH (08:24)
[2020-03-16] MEDS: FLUTICASONE PROPIONATE NA SPR 16 GM BTL SCH (08:24)
[2020-03-16 08:54] LABS: Basophils # (auto) 0.01 K/uL (0-0.2); Basophils % (auto) 0.1 %; Eosinophils # (auto) 0.04 K/uL (0-0.5); Eosinophils % (auto) 0.4 %; Hematocrit (blood only) 42.5 % (37-47); Hemoglobin 14.5 g/dL (12.0-16.0); Immature Granulocytes # (auto) 0.03 K/uL (0.00-0.02); Immature Granulocytes % (auto) 0.3 %; Lymphocytes # (auto) 2.73 K/uL (1.2-3.4); Lymphocytes % (auto) 28.5 %; Mean Corpuscular Hemoglobin 28.8 pg (25-34); Mean Corpuscular Hgb Conc 34.1 g/dL (32-36); Mean Corpuscular Volume 84.3 fL (80-100); Mean Platelet Volume 9.9 fL (7.4-10.4); Monocytes # (auto) 0.66 K/uL (0.11-0.59); Monocytes % (auto) 6.9 %; Neutrophils # (auto) 6.11 K/uL (1.4-6.5); Neutrophils % (auto) 63.8 %; Platelet Count 175 K/uL (130-400); RDW Coefficient of Variation 13.4 % (11.5-14.5); RDW Standard Deviation 40.7 fL (36.4-46.3); Red Blood Count 5.04 M/uL (4.2-5.4); White Blood Count 9.58 K/uL (4.8-10.8)
[2020-03-16] MEDS ORDERED: LEFLUNOMIDE 10 MG TAB PO SCH (09:00)
[2020-03-16] MEDS ORDERED: hydroCHLOROthiazide 25 MG TAB PO SCH (09:00)
[2020-03-16] MEDS ORDERED: AMLODIPINE BESYLATE 5 MG TAB PO SCH (09:00)
[2020-03-16 09:25] LABS: BUN Creatinine Ratio 15.7 (10-20); Calcium 9.1 mg/dl (8.5-10.1); Creatinine Clr Calc Pharmacy 62.8 ml/min; Est GFR (African American) 71.6; Est GFR (Non-African American) 61.7; Magnesium 1.9 mg/dl (1.8-2.4)
[2020-03-16] MEDS ORDERED: POTASSIUM CHLORIDE 20 MEQ TABCR PO STA (11:07)
--- NOTE | 2020-03-16 15:28 | Hospitalist Progress Note ---
Date of Service Delayed entry Date of service noted below March 16, 2020 Assessment & Plan (1) Hypertensive crisis: (2) Hypertensive urgency: underlying headache likely contributing added Amlodipine 10m po daily, HCTZ 12.5mg po daily continue Losartan 100mg po daily Blood pressure improving, 142/79 on discharge day Continue outpatient follow-up if not improving, may need work up for secondary hypertension Headache likely secondary to migraine Neurologist Dr. Damion Lewis consulted Brain MRI: unrevealing Cervical MRI performed as an outpatient: no cord compression per Neuro changed baclofen to Zanaflex as needed increased amitriptyline from 10 to 25mg po HS Headache significantly improved Discharged on Zanaflex as needed, amitriptyline 25 mg at bedtime Continue to follow-up with neurology service Rheumatoid arthritis may reduce Leflunomide to 10mg daily for now as per Dr. Richmond Transaminitis, possible NAFLD, hepatic steatosis on outpatient abdominal ultrasound August 2019 Prediabetes as per records, hemoglobin A1c of 5.19 February 2020 past tobacco abuse DVT prophylaxis SCDs only in light of uncontrolled hypertension Full code Disposition Discharge to home Admission and Anticipated Discharge Date Admission Date: March 15, 2020 Subjective Follow-up for hypertension, headache Seen sitting up in bedside chair, comfortable, not in distress, smiling States headache is resolved No dizziness, chest pain, shortness of breath, palpitations Denies any other symptoms States she is ready and like to be discharged Review of Systems Review of Systems: All systems reviewed & are unremarkable except as noted in HPI & below Physical Exam Physical Exam: General- oriented x 3, not in distress, speaks in sentences with no effort or accessory muscle use Eyes- anicteric Neck- no JVD Lungs- clear breath sounds bilaterally, no wheezing, no crackles Heart- normal rate, regular rhythm; no murmurs Abdomen- normal bowel sounds, nondistended, soft, nontender Extremities- no pretibial edema, no calf tenderness Neuro- alert, oriented x 3; no gross focal neurologic deficits Skin- warm & dry Results & Data Results & Data ([facility]) Vital Signs (Past 12 Hours) Vital Signs Temp Pulse Pulse Resp BP BP Pulse Ox 03/16/20 12:07 36.7 C 69 17 154/77 H 93 03/16/20 06:58 36.7 C 63 18 155/75 H 159/88 H 95 03/16/20 03:50 36.7 C 68 15 133/80 109/74 96 Laboratory Results Noted and reviewed
--- NOTE | 2020-03-18 15:37 | Discharge Summary ---
Date of Service March 18, 2020 Admission HPI Per Admitting Provider History obtained from patient and records. Medical history significant for rheumatoid arthritis as per records, hypertension, hyperlipidemia, past tobacco abuse, urolithiasis, GERD, prediabetes as per records. Last confinement September 2017 under General Surgery service for postcholecystectomy bile leak. Patient seen at [facility] Rheumatology office last November 2019 for outpatient follow-up for rheumatoid arthritis. RUE and right knee pain at time of visit. Patient leflunomide increased in dose from 10 to 20 mg daily. 6 weeks ago, patient seen at the ER for achy neck discomfort radiating to the head without recollection of antecedent trauma. CT cervical spine did not show fracture or misalignment. Moderate to severe foraminal stenosis on the left at C2-3 and mild to moderate foraminal stenosis bilaterally at C5-6 as per report. Patient discharged home oxycodone as needed prescription. Persistent but tolerable pain on follow-up with PCP 3 weeks ago. Patient prescribed baclofen and prednisone course for possible neck strain which helped her discomfort. SBP at home 1 40-1 70s as per patient. Patient denies OTC NSAID intake, unusual stress. Outpatient [facility] Neurology visit last week for neck pain. Cervical MRI recommended by neurologist to rule out acute odontoid instability secondary to rheumatoid arthritis. SBP 170s at time of specialist visit as per report. Patient completed cervical MRI study yesterday afternoon, results of which are still pending. Headache worse as if it was going to explode as per patient, neck pain not so bad after MRI procedure. SBP 230s upon arrival at the ER. Patient given IV labetalol at the ER. Patient received Benadryl, Decadron, Zofran, Compazine, and Dilaudid at the ER for headache symptoms. Patient currently comfortable SBP currently 160s. MEDICAL HISTORY: As above. SURGERIES: She had cholecystectomy, appendectomy, hysterectomy, tube removal. FAMILY HISTORY: Heart disease, stroke, liver cancer, diabetes. PERSONAL AND SOCIAL HISTORY: Past tobacco use. No chronic intake of alcoholic beverages. 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 Exam Per Admitting Provider GENERAL: Comfortable, lethargy, pleasant, no respiratory distress SKIN: Normal color, warm HEENT: [place] palpebral conjunctivae, no ptosis, dry buccal mucosa NECK : Supple, no overt limitation in range of motion, no tenderness CHEST : CTA, no tenderness HEART : RRR, no obvious murmurs ABDOMEN: Some distention, nontender EXTREMITIES : No LE swelling/tenderness, no other conspicuous deformities noted NEUROLOGIC : Coherent, no facial asymmetry, no other gross focality Principal Diagnosis MIGRAINE HEADACHE; HYPERTENSIVE URGENCY Discharge Exam General- oriented x 3, not in distress, speaks in sentences with no effort or accessory muscle use Eyes- anicteric Neck- no JVD Lungs- clear breath sounds bilaterally, no wheezing, no crackles Heart- normal rate, regular rhythm; no murmurs Abdomen- normal bowel sounds, nondistended, soft, nontender Extremities- no pretibial edema, no calf tenderness Neuro- alert, oriented x 3; no gross focal neurologic deficits Skin- warm & dry Discharge Data Allergies Allergy/AdvReac Type Severity Reaction Status Date / Time sulfamethoxazole Allergy Intermediate ITCHING Verified 03/14/20 22:11 trimethoprim Allergy Intermediate ITCHING Verified 03/14/20 22:11 naproxen AdvReac Intermediate NAUSEA AND Verified 03/14/20 22:11 VOMITNNG Consultations 03/14/20 23:51 ED Decision to Admit Stat 03/15/20 02:47 Consult Neurology Routine Ordered Studies 03/14/20 21:53 CT head/brain wo con Urgent FINDINGS: No acute intracranial hemorrhage, midline shift, intracranial mass, hydrocephalus, territorial ischemia or abnormal extra-axial collection. The calvarium is intact. The paranasal sinuses, mastoid air cells, and middle ear cavities are clear. IMPRESSION: No acute intracranial abnormality. 03/15/20 02:47 MR brain wo/w con Routine FINDINGS: There are no foci of restricted diffusion to suggest acute infarct. No acute intracranial hemorrhage, midline shift or mass effect is present. Brain volume is normal. Ventricular system is normal. The basilar cisterns are patent. There are no extra-axial collections. No intracranial mass or pathologic enhancement is identified. Flow-voids for the major intracranial vessels are present. Minimal white matter T2 hyperintensity is noted. Calvarial signal is normal. Branch unremarkable. There is no evidence for sinusitis. There is no mastoid fluid. IMPRESSION: No acute intracranial findings. Hospital Course (1) Hypertensive urgency: Hypertensive urgency: Suspect uncontrolled essential hypertension, in the setting of migraine headach es added Amlodipine 10m po daily, HCTZ 12.5mg po daily continued Losartan 100mg po daily Blood pressure improving, 142/79 on discharge day Continue outpatient follow-up if not improving, may need work up for secondary hypertension Headache likely secondary to Migraine Neurologist Dr. Damion Lewis consulted Brain MRI: unrevealing, no acute intracranial findings Cervical MRI performed as an outpatient: no cord compression per Neuro changed baclofen to Zanaflex as needed increased amitriptyline from 10 to 25mg po HS Headache significantly improved Discharged on Zanaflex as needed, increased dose of amitriptyline 25 mg at bedtime Continue to follow-up with neurology service Mild hypokalemia Potassium 3.0 on discharge day Likely from HCTZ Potassium supplement prescription transmitted to pharmacy Repeat basic metabolic profile on follow-up with PCP this coming week Prolonged QT QT corrected 512 monitor while on amitriptyline Rheumatoid arthritis Question whether increased dose of leflunomide contributing to hypertension Discussed with patient's septic tank setter, Dr. Richmond may reduce Leflunomide to 10mg daily for now as per Dr. Richmond Follow-up with rheumatology clinic Transaminitis possible NAFLD, hepatic steatosis on outpatient abdominal ultrasound August 2019 Further work-up and management as an outpatient Prediabetes as per records, hemoglobin A1c of 5.19 February 2020 Follow-up with PCP Disposition Discharge to home Follow-up with PCP within 1 week per DC instructions Follow-up with neurologist as scheduled Follow-up with buzzle buffer as scheduled Total Time Total Time Spent Total Time Spent (In Minutes): > 30 minutes Discharge Plan Discharge Items Patient Disposition: Home - Self-Care Reason For Visit: HTN CRISIS Discharge Diagnosis: HEADACHE, LIKELY SECONDARY TO MIGRAINE HIGH BLOOD PRESSURE Condition on Discharge: Good Activity: Resume your previous activity Activity Comment: GRADUALLY TOLERATED Lifting: Wait until after follow-up appointment Exercise/Sports: Wait until after follow-up appointment Driving/Machine Use: NO DRIVING WHILE TAKING ZANAFLEX, OR IF WITH SEVERE HEADACHE Non-emergency contact: Primary Care Provider and Neurologist Call non-emergency contact if: you have any medication questions, your symptoms worsen, your pain is not controlled, your pain is worsening, your pain is unusual for you, your pain is concerning for you and you have a fever Follow-up/Referrals: Jluis Doss DO [Primary Care Provider] - Diet: Heart Healthy Addtl Attending Provider Instructions: PLEASE REVIEW YOUR NEW MEDICATION LIST AND FOLLOW INSTRUCTIONS CAREFULLY. YOUR NEW MEDICATIONS INCLUDE: ZANAFLEX- for headache, or neck pain, best to be taken at night AMLODIPINE- for blood pressure control HCTZ- for blood pressure control INCREASE ELAVIL FROM 10 TO 25MG AT NIGHT. DECREASE LEFLUNOMIDE FROM 20MG TO 10MG DAILY. DO NOT TAKE MORE THAN 3,000MG OF TYLENOL WITHIN 24 HOURS. Pending Studies at Discharge: Yes Studies:: REPEAT BASIC METABOLIC PROFILE AND MAGNESIUM LEVEL ON FOLLOW UP WITH PRIMARY CARE PROVIDER NEXT WEEK. Stand-Alone Forms: My [facility] [employer], Smoking Cessation Medications and DC Order Prescriptions: New tizanidine 4 mg Tablet 4 mg PO TID PRN (Reason: headache) Qty: 20 RF: 0 amlodipine [Norvasc] 5 mg Tablet 10 mg PO QAM Qty: 60 RF: 2 amitriptyline 25 mg Tablet 25 mg PO HS Qty: 30 RF: 2 acetaminophen 325 mg Tablet 650 mg PO Q6H PRN (Reason: pain) Qty: 30 RF: 0 hydrochlorothiazide 25 mg Tablet 12.5 mg PO QAM Qty: 14 RF: 2 leflunomide [Arava] 10 mg Tablet 10 mg PO DAILY Qty: 30 RF: 0 magnesium oxide 400 mg (241.3 mg magnesium) Tablet 400 mg PO BID Qty: 20 RF: 0 potassium chloride [Klor-Con 10] 10 mEq tablet extended release 20 meq PO DAILY Qty: 14 RF: 0 Continued albuterol sulfate [Proventil HFA] 90 mcg/actuation Hfa Aerosol Inhaler 2 puff INHALATION Q6H PRN (Reason: Cough) RF: 0 atorvastatin 10 mg Tablet 10 mg PO DAILY RF: 0 fluticasone propionate 50 mcg/actuation [place],Suspension 2 spray INTRANASAL DAILY RF: 0 losartan 100 mg Tablet 100 mg PO DAILY RF: 0 Discontinued amitriptyline 10 mg Tablet 10 mg PO HS RF: 0 baclofen 10 mg Tablet 10 mg PO BID RF: 0 pantoprazole 40 mg Tablet,Delayed Release (Dr/Ec) 40 mg PO DAILY RF: 0 leflunomide 20 mg Tablet 20 mg PO DAILY RF: 0 Discharge Orders: Discharge Order (Routine); Ordered 03/16/20 Ordered By: Ramon Acosta Admission Data Admit Date/Time: 03/15/20 00:58 Attending Provider: Ramon Acosta Admit Provider: Oh Ortiz Primary Care Provider: Jluis Doss Other Providers: Oh Ortiz ; Malik Soliman Other Interventions: Discharge Summary Assessment (RN) Last Done: 03/16/20 15:33 DC Date/Time DO NOT enter until pt leaves facility: 03/16/20 16:04
== END 2020-03-16 16:04 | disposition home or self-care (01) ==
LOC: ED 21:11 → 2S 21:11 → SUATTDRO 03-15 00:58 → 2S 03-15 02:20

== ENCOUNTER 2020-11-05 16:26 | Inpatient (IN) ==
[2020-11-05] MEDS ORDERED: MoRPHine SULFATE 10 MG/ML CARP/VIAL IV PRN (16:46)
[2020-11-05] MEDS ORDERED: ONDANSETRON INJ 2 MG/ML 2 ML VIAL IV STA ×2 (16:46→19:13)
[2020-11-05] MEDS ORDERED: SODIUM CHLORIDE 0.9% 500 ML IV STA (16:46)
[2020-11-05 16:58] LABS: Appearance Urine Turbid (Clear); Bacteria Urine Automated Negative (Negative); Blood Urine 3+ (Negative); Color Urine Orange; Epithelial Cell Urine Auto >30 /lpf (0-5); Glucose Urine UA Negative (Negative); Ketones Urine Negative (Negative); Leukocyte Esterase Urine 1+ (Negative); Nitrite Urine Negative (Negative); Protein Urine 3+ (Negative); Specific Gravity Urine 1.025 (1.000-1.030); Urobilinogen Urine Negative (Negative)
[2020-11-05 17:01] LABS: Hematocrit (blood only) 41.9 % (37-47); Hemoglobin 14.3 g/dL (12.0-16.0); Mean Corpuscular Hemoglobin 28.6 pg (25-34); Mean Corpuscular Hgb Conc 34.1 g/dL (32-36); Mean Corpuscular Volume 83.8 fL (80-100); Mean Platelet Volume 9.9 fL (7.4-10.4); Platelet Count 182 K/uL (130-400); RDW Coefficient of Variation 13.2 % (11.5-14.5); RDW Standard Deviation 39.5 fL (36.4-46.3); White Blood Count 8.29 K/uL (4.8-10.8)
[2020-11-05 17:09] LABS: Bilirubin Urine 1+ (Negative)
[2020-11-05 17:19] LABS: BUN Creatinine Ratio 16.7 (10-20); Calcium 9.6 mg/dl (8.5-10.1); Creatinine Clr Calc Pharmacy 73.3 ml/min; Est GFR (African American) 87.5; Est GFR (Non-African American) 75.5; Potassium 3.8 mmol/L (3.5-5.1)
[2020-11-05 17:25] LABS: Cast Urine Automated 0 /lpf (0-5); RBC Urine Automated >30 /hpf (0-4)
[2020-11-05] MEDS ORDERED: MoRPHine SULFATE 4 MG/ML 1 ML CARP\\VIAL IV STA ×2 (17:26→19:13)
[2020-11-05] MEDS ORDERED: SODIUM CHLORIDE 0.9% 1000ML 1,000 ML IV ONE (17:26)
[2020-11-05] MEDS ORDERED: KETOROLAC TROMETHAMINE 15 MG/ML VIAL IV ONE (17:26)
--- NOTE | 2020-11-05 17:58 | XRay Report ---
KUB HISTORY: Left-sided stone. Follow-up. COMPARISON: Abdomen and pelvis CT 10/25/2020. FINDINGS: The bowel gas pattern is unremarkable. There are no dilated loops of small bowel to suggest an obstruction. No change in position of the 1.6 cm left UPJ stone. Calcifications in the left deep pelvis are consistent with phleboliths. No renal calculi identified. Stable splenomegaly. Prior chol ecystectomy. No pneumoperitoneum or pneumatosis. IMPRESSION: 1. No change in position of the 1.6 cm left UPJ stone. 2. Stable splenomegaly. ACT 112: Negative or not required by law. Electronically signed by: Gustavo Verdugo M.D. 11/05/2020 5:57 PM
--- NOTE | 2020-11-05 18:13 | Emergency Department Note ---
Impression & Plan Renal colic, Acute flank pain, Ureteral colic, Obstructive uropathy, Vomiting ED Provider Note NAME: STACIE DUMAS AGE: 60 SEX: F : 1960 ARRIVES VIA: Walk-In INFORMANT: Patient ED PROVIDER(S): Clifford Workman DO CHIEF COMPLAINT: Left flank pain HPI: Patient is a 52-year-old female who presents ER for severe left flank pain. This started suddenly just prior to arrival. She describes it as a sharp stabbing pain and feels like her previous kidney stones. She was having some lower abdominal pain and follow-up with PCP as an outpatient last week. This started on Wednesday. She had a CT which showed a obstructing over 1 cm stone. She admits to nausea and vomiting currently. She denies any dysuria, urgency or frequency. She was having some hematuria. No other exacerbating or remitting factors. ROS: See above HPI for pertinent positives & negatives. A total of 10 systems reviewed and were otherwise negative. PAST MEDICAL HISTORY:See Below PAST SURGICAL HISTORY:See Below FAMILY HISTORY:See Below SOCIAL HISTORY:See Below HOME MEDICATIONS:See Below ALLERGIES:See Below VITALS:See Below PHYSICAL EXAMINATION: GENERAL: Sitting up in bed, alert, severe distress holding left flank EYE EXAM: Tearful OROPHARYNX: no exudate, no erythema, lips, buccal mucosa, and tongue normal and mucous membranes are moist NECK: supple, no nuchal rigidity, no adenopathy, non-tender LUNGS: Clear to auscultation. Normal chest wall mechanics HEART: no murmurs, S1 normal and S2 normal ABDOMEN: abdomen soft, non-tender, normo-active bowel sounds, no masses, no re bound or guarding. BACK: Back is symmetrical on inspection and there is no deformity, no midline te nderness, no CVA tenderness. SKIN: no rashes and no bruising UPPER EXTREMITIES: upper extremities are grossly normal. LOWER EXTREMITIES: No pitting edema. NEURO EXAM: Normal sensorium, cranial nerves II-XII grossly intact, normal speech, no gross weakness of arms, no gross weakness of legs. MEDICAL DECISION MAKING: Patient is a 60-year-old female with a known 1 cm stone that presents the ER for severe left flank pain. IV was established blood was obtained. Labs show no significant leukocytosis or anemia. BMP with slightly elevated chloride. UA with contaminant as there are greater than 30 epithelial cells. Covid was negative. Patient was given multiple doses of IV narcotics Zofran and fluids. Ultrasound and KUB confirmed that the stone has likely not moved. Due to the severe pain and size of the stone discussed the hospitalist for further evaluat ion. Triage Nursing notes reviewed. Limited review of prior medical records performed Vital Signs: reviewed and remarkable for HTN and tachy Differential diagnosis: Differential diagnoses includes but is not limited to gastritis, peptic ulcer disease, GERD, gallbladder disease, pancreatitis, small bowel obstruction, acute coronary syndrome, pericarditis, ischemic bowel, irritable bowel disease, irritable bowel syndrome, appendicitis, diverticulitis, malignancy, hernia, urinary tract infection, torsion, /ectopic (if female), perforation, trauma, infectious. ER treatment provided: See below Diagnostics interpreted by me: ECG: none Cardiac Monitoring: An order was placed for continuous cardiac monitoring. The monitor shows a rate of 85 with sinus rhythm. Laboratory studies: As stated above and show below. Imaging studies: Ultrasound and KUB as discussed above Consultation(s): Discussed with the hospitalist Dr. Larkin for further evaluation Procedures: none Critical Care: None Past Med/Surg History Medical History Chronic cough inhaler for this > rare use > no asthma dx GERD (gastroesophageal reflux disease) High blood pressure Hyperlipidemia IBS (irritable bowel syndrome) Insomnia Kidney stones Migraine Osteoarthritis Rheumatoid arthritis Surgical History H/O endoscopic retrograde cholangiopancreatography History of appendectomy History of cholecystectomy History of colonoscopy History of cystoscopy History of dilatation and curettage History of esophagogastroduodenoscopy (EGD) History of hysterectomy History of lithotripsy History of tooth extraction Social History Smoking Status: Former smoker Second Hand Exposure: No; Hx Alcohol Use: No Hx Substance Use: No Preferred Language: Italian Communication Ability: Effective Automotive Designer Required: No Beliefs That Will Affect Care: None Current Living Situation: Spouse Feels Safe at Home: Yes Assistive Devices: Glasses Allergies Allergies Allergy/AdvReac Type Severity Reaction Status Date / Time sulfamethoxazole Allergy Intermediate ITCHING Verified 11/05/20 19:04 trimethoprim Allergy Intermediate ITCHING Verified 11/05/20 19:04 naproxen AdvReac Intermediate NAUSEA AND Verified 11/05/20 19:04 [id number] Home Meds Home Medications Medication Instructions Recorded Confirmed albuterol sulfate [Proventil HFA] 2 puff INHALATION Q6H PRN 01/24/20 11/05/20 losartan 100 mg PO QAM 01/24/20 11/05/20 leflunomide 20 mg PO QAM 07/20/20 11/05/20 ibuprofen 800 mg PO DAILY PRN 11/04/20 11/05/20 omega-3 fatty acids [Fish Oil] 1,000 mg PO QAM 11/04/20 11/05/20 potassium chloride [Klor-Con 10] 20 meq PO QAM 11/04/20 11/05/20 amlodipine 10 mg PO DAILY 11/05/20 11/05/20 atorvastatin 20 mg PO DAILY 11/05/20 11/05/20 fluticasone propionate 2 spray INTRANASAL DAILY 11/05/20 11/05/20 hydrochlorothiazide 12.5 mg PO .? 11/05/20 11/05/20 pantoprazole 40 mg PO BID 11/05/20 11/05/20 sucralfate 1 g PO BID 11/05/20 11/05/20 Previous Rx's Medication Instructions Recorded acetaminophen 650 mg PO Q6H PRN #30 tab 03/16/20 magnesium oxide 400 mg PO BID #20 tab 03/16/20 tizanidine 4 mg PO TID PRN #20 tab 03/16/20 Results & Data (ED) Vital Signs Vital Signs - 24 hr 11/05/20 16:33 11/05/20 17:49 Temperature 36.5 C Temperature Source Temporal Artery Scan Pulse Rate 107 H Pulse Rate [Left Finger] 74 Pulse Rhythm Regular Pulse Strength Normal Respiratory Rate 24 20 Respiratory Effort / Characteristics Non-Labored Non-Labored Spontaneous Respiratory Depth Normal Respiratory Pattern Regular Blood Pressure 193/87 H Blood Pressure [Left Arm] 157/90 H Blood Pressure Mean 122 Blood Pressure Mean [Left Arm] 112 Blood Pressure Position Standing Blood Pressure Position [Left Arm] Sitting Pulse Oximetry 96 99 Oxygen Delivery Method Room Air Room Air Sepsis Recent Fever Within 48 Hours No Sepsis New/Unexplained Change in Mental Status No Sepsis Action Taken by Nursing No Action Required Laboratory Data Result diagrams: 11/05/20 16:43 11/05/20 16:43 Lab Results 11/05/20 11/05/20 11/05/20 Range/Units 16:43 16:43 16:43 WBC 8.29 (4.8-10.8) K/uL RBC 5.00 (4.2-5.4) M/uL Hgb 14.3 (12.0-16.0) g/dL Hct 41.9 (37-47) % MCV 83.8 (80-100) fL MCH 28.6 (25-34) pg MCHC 34.1 (32-36) g/dL RDW Std Deviation 39.5 (36.4-46.3) fL RDW Coeff of Rad 13.2 (11.5-14.5) % Plt Count 182 (130-400) K/uL MPV 9.9 (7.4-10.4) fL Sodium 141 (136-145) mmol/L Potassium 3.8 (3.5-5.1) mmol/L Chloride 112 H (98-107) mmol/L Carbon Dioxide 23 (21-32) mmol/L Anion Gap 6.0 (3-11) BUN 14 (7-18) mg/dl Creatinine 0.85 (0.6-1.2) mg/dl Est Cr Clr Drug Dosing 73.3 ml/min Est GFR ( Amer) 87.5 Est GFR (Non-Af Amer) 75.5 BUN/Creatinine Ratio 16.7 (10-20) Glucose 115 H (70-99) mg/dl Calcium 9.6 (8.5-10.1) mg/dl Urine Color [place] Urine Appearance Turbid A (Clear) Urine pH 5.0 (4.5-7.5) Ur Specific [place] 1.025 (1.000-1.030) Urine Protein 3+ H (Negative) Urine Glucose (UA) Negative (Negative) Urine Ketones Negative (Negative) Urine Blood 3+ H (Negative) Urine Nitrite Negative (Negative) Urine Bilirubin 1+ H (Negative) Urine Urobilinogen Negative (Negative) Ur Leukocyte Esterase 1+ H (Negative) Urine WBC (Auto) 10-30 H (0-5) /hpf Urine RBC (Auto) >30 H (0-4) /hpf U Hyaline Cast (Auto) 0 (0-5) /lpf U Epithel Cells (Auto) >30 H (0-5) /lpf Urine Bacteria (Auto) Negative (Negative) Urine Yeast Not Reportable COVID-19 Eval Order SARS-CoV-2 (PCR) (Negative) Influenza Type A (PCR) (Neg) Influenza Type B (PCR) (Neg) RSV (RT-PCR) (Neg) 11/05/20 11/05/20 Range/Units 17:35 17:35 WBC (4.8-10.8) K/uL RBC (4.2-5.4) M/uL Hgb (12.0-16.0) g/dL Hct (37-47) % MCV (80-100) fL MCH (25-34) pg MCHC (32-36) g/dL RDW Std Deviation (36.4-46.3) fL RDW Coeff of Rad (11.5-14.5) % Plt Count (130-400) K/uL MPV (7.4-10.4) fL Sodium (136-145) mmol/L Potassium (3.5-5.1) mmol/L Chloride (98-107) mmol/L Carbon Dioxide (21-32) mmol/L Anion Gap (3-11) BUN (7-18) mg/dl Creatinine (0.6-1.2) mg/dl Est Cr Clr Drug Dosing ml/min Est GFR ( Amer) Est GFR (Non-Af Amer) BUN/Creatinine Ratio (10-20) Glucose (70-99) mg/dl Calcium (8.5-10.1) mg/dl Urine Color Urine Appearance (Clear) Urine pH (4.5-7.5) Ur Specific [place] (1.000-1.030) Urine Protein (Negative) Urine Glucose (UA) (Negative) Urine Ketones (Negative) Urine Blood (Negative) Urine Nitrite (Negative) Urine Bilirubin (Negative) Urine Urobilinogen (Negative) Ur Leukocyte Esterase (Negative) Urine WBC (Auto) (0-5) /hpf Urine RBC (Auto) (0-4) /hpf U Hyaline Cast (Auto) (0-5) /lpf U Epithel Cells (Auto) (0-5) /lpf Urine Bacteria (Auto) (Negative) Urine Yeast COVID-19 Eval Order [facility]FluRsv at [facility] SARS-CoV-2 (PCR) NEGATIVE (Negative) Influenza Type A (PCR) Negative (Neg) Influenza Type B (PCR) Negative (Neg) RSV (RT-PCR) Negative (Neg) Administered Medications Ceftriaxone Sodium 2,000 mg/ (Dextrose) 50 mls @ 100 mls/hr IV Q24H MACY; Protoc ol Stop: 11/10/20 20:59 Last Admin: 11/05/20 21:53 Dose: 100 mls/hr Documented by: [id number] Sodium Chloride (Nss 1000ml) 1,000 mls @ 125 mls/hr IV .Q8H MACY Stop: 12/05/20 20:10 Last Admin: 11/05/20 20:26 Dose: 125 mls/hr Documented by: [id number] Ketorolac Tromethamine (Ketorolac 30 Mg/Ml Vial) 30 mg IV Q6H MACY Stop: 11/06/20 15:01 Last Admin: 11/05/20 21:51 Dose: 30 mg Documented by: [id number] Magnesium Oxide (Magnesium Oxide 400 Mg Tab) 400 mg PO BID MACY Stop: 12/05/20 20:59 Last Admin: 11/05/20 21:52 Dose: 400 mg Documented by: [id number] Tamsulosin HCl (Tamsulosin Hcl 0.4 Mg Cap) 0.4 mg PO HS MACY Stop: 12/05/20 20:59 Last Admin: 11/05/20 21:52 Dose: 0.4 mg Documented by: [id number] Discontinued Medications Sodium Chloride (Nss) 500 mls @ 999 mls/hr IV .Q31M STA Stop: 11/05/20 17:16 Last Infusion: 11/05/20 17:28 Dose: 0 mls/hr Documented by: [id number] Admin: 11/05/20 16:52 Dose: 999 mls/hr Documented by: [id number] Sodium Chloride (Nss 1000ml) 1,000 mls @ 999 mls/hr IV .Q1H1M ONE Stop: 11/05/20 18:26 Last Infusion: 11/05/20 19:07 Dose: 0 mls/hr Documented by: [id number] Admin: 11/05/20 17:34 Dose: 999 mls/hr Documented by: [id number] Promethazine HCl 12.5 mg/ (Sodium Chloride) 50.5 mls @ 202 mls/hr IV NOW STA Stop: 11/05/20 20:31 Last Admin: 11/05/20 21:21 Dose: 202 mls/hr Documented by: [id number] Ketorolac Tromethamine (Ketorolac Tromethamine 15 Mg/Ml Vial) 15 mg IV NOW ONE Stop: 11/05/20 17:27 Last Admin: 11/05/20 17:34 Dose: 15 mg Documented by: [id number] Morphine Sulfate (Morphine Sulfate 10 Mg/Ml Carp/Vial) 6 mg IV Q10M PRN PRN Reason: Pain Last Admin: 11/05/20 16:51 Dose: 6 mg Documented by: [id number] Morphine Sulfate (Morphine Sulfate 4 Mg/Ml 1 Ml Carp\Vial) 4 mg IV NOW STA Stop: 11/05/20 17:27 Last Admin: 11/05/20 17:34 Dose: 4 mg Documented by: [id number] Morphine Sulfate (Morphine Sulfate 4 Mg/Ml 1 Ml Carp\Vial) 4 mg IV NOW STA Stop: 11/05/20 19:14 Last Admin: 11/05/20 19:26 Dose: 4 mg Documented by: [id number] Ondansetron HCl (Ondansetron Inj 2 Mg/Ml 2 Ml Vial) 4 mg IV NOW STA Stop: 11/05/20 16:47 Last Admin: 11/05/20 16:51 Dose: 4 mg Documented by: [id number] Ondansetron HCl (Ondansetron Inj 2 Mg/Ml 2 Ml Vial) 4 mg IV NOW STA Stop: 11/05/20 19:14 Last Admin: 11/05/20 19:26 Dose: 4 mg Documented by: [id number] Discharge Plan Visit Data Chief Complaint: Abdominal Pain Stated Complaint: KIDNEY STONE-13MM ED Provider: Clifford Workman Discharge Problem: Renal colic, Acute flank pain, Ureteral colic, Obstructive uropathy, Vomiting Patient Disposition: Admitted As Inpatient Discharge Instructions Interventions: ED Discharge Assessment Last Done: 11/05/20 19:44 Discharge Problem: Vomiting Qualifiers: Vomiting type: unspecified Vomiting Intractability: unspecified Nausea presence: unspecified Qualified Code(s): R11.10 - Vomiting, unspecified
--- NOTE | 2020-11-05 18:26 | Ultrasound Report ---
RENAL ULTRASOUND HISTORY: Follow-up left ureteral stone. COMPARISON: KUB 11/05/2020. FINDINGS: Right kidney: 9.8 cm. No hydronephrosis. Normal corticomedullary differentiation and cortical thickne ss. Left kidney: 10.4 cm. The patient's UPJ stone is not identified by this modality. No hydronephrosis. Normal corticomedullary differentiation and cortical thickness. Bladder: Not well-distended. No bladder wall thickening. IMPRESSION: 1. No hydronephrosis. 2. The patient's known left UPJ stone is not identified on this study. ACT 112: Negative or not required by law. Electronically signed by: Gustavo Verdugo M.D. 11/05/2020 6:25 PM
[2020-11-05 18:31] LABS: Influenza A virus by PCR Negative (Neg); Influenza B virus by PCR Negative (Neg); RSV by PCR Negative (Neg); SARS CoV2 RNA(COVID-19) InHosp NEGATIVE (Negative)
--- NOTE | 2020-11-05 19:00 | History & Physical Report ---
Date of Service November 05, 2020 Assessment & Plan (1) Ureteral colic: admitted with left flank pain was seen by Urology on clinic last week , developed worsening of left flank pain ,sharp , severe KUB as noted above obstructed 1.6 mm stone in left UPJ , positive have not changed from previous scan no evidence of sepsis normal white count , no fever Iv fluids , ordered Flomax , pain control urology consulted , renal function normal follow BMP will start on empiric abx with IV Rocephin as had obstructed stone for past 6-7 days follow UA and urine culture (2) Renal colic: (3) Calculus of proximal left ureter: (4) Hypertensive urgency: BP 193/87 possible due to severe renal colic /left flank pain pt is on multiple home antihypertensive meds -continued /prn IV hydralaizine pain control monitor in tele Hx of RA ( Rheumatoid arthritis ) hold leflunomide Full code DVT prophylaxis : scd and teds Disposition : plan to dc home when medically stable History of Present Illness Chief Complaint: renal colic Primary Care Provider: Jluis Doss, 60 yo F presented with renal colic Past medical history significant for hypertension, hx of hypertensive crisis, hyperlipidemia, prediabetes, nephrolithiasis, OA, RA, hx of appendectomy and hysterectomy and oophorectomy. Patient was seen at her PCP clinic on 10/25 with c/o urinary issues x 1 week, including gross hematuria and abdominal cramping. Urinalysis showed blood but otherwise not suggestive of infection per notes. CT abdomen/pelvis with IV and oral contrast 10/25/20 showed 1 cm calculus of left UPJ with mild secondary obstructive changes. hx of prior renal stone with spontaneous passage of stones in the past. Prior stone surgery ~8 years ago. Hx of ESWL, stone fragmented but then obstructed and subsequently required URS-LL with stent. . pt was seen at [facility] on 10/30/20 - - was scheduled for Cystoscopy, left retrograde pyelogram, left ureteroscopy, laser lithotripsy, stone basketing, possible ureteral dilation and left ureteral stent placement. - presented to ER due to sudden onset of severe abdominal pain Allergies Allergy/AdvReac Type Severity Reaction Status Date / Time sulfamethoxazole Allergy Intermediate ITCHING Verified 11/05/20 19:04 trimethoprim Allergy Intermediate ITCHING Verified 11/05/20 19:04 naproxen AdvReac Intermediate NAUSEA AND Verified 11/05/20 19:04 [id number] Home Medications Medication Instructions Recorded Confirmed Type albuterol sulfate [Proventil HFA] 2 puff INHALATION Q6H PRN 01/24/20 11/04/20 History atorvastatin 20 mg PO QAM 01/24/20 11/04/20 History fluticasone propionate 2 spray INTRANASAL QAM 01/24/20 11/04/20 History losartan 100 mg PO QAM 01/24/20 11/04/20 History acetaminophen 650 mg PO Q6H PRN #30 tab 03/16/20 11/04/20 Rx amlodipine [Norvasc] 10 mg PO QAM #60 tab 03/16/20 11/04/20 Rx hydrochlorothiazide 12.5 mg PO QAM #14 tab 03/16/20 11/04/20 Rx magnesium oxide 400 mg PO BID #20 tab 03/16/20 11/04/20 Rx tizanidine 4 mg PO TID PRN #20 tab 03/16/20 11/04/20 Rx amitriptyline 25 mg PO HS PRN 07/20/20 11/04/20 History leflunomide 20 mg PO QAM 07/20/20 11/04/20 History ibuprofen 800 mg PO DAILY PRN 11/04/20 11/04/20 History omega-3 fatty acids [Fish Oil] 1,000 mg PO QAM 11/04/20 11/04/20 History omeprazole 20 mg PO BID 11/04/20 11/04/20 History potassium chloride [Klor-Con 10] 20 meq PO QAM 11/04/20 11/04/20 History Past Med/Surg History Medical History (Updated 11/04/20 @ 09:26 by Ana Kothari RN) Chronic cough inhaler for this > rare use > no asthma dx GERD (gastroesophageal reflux disease) High blood pressure Hyperlipidemia IBS (irritable bowel syndrome) Insomnia Kidney stones Migraine Osteoarthritis Rheumatoid arthritis Surgical History (Updated 11/04/20 @ 09:25 by Ana Kothari RN) H/O endoscopic retrograde cholangiopancreatography History of appendectomy History of cholecystectomy History of colonoscopy History of cystoscopy History of dilatation and curettage History of esophagogastroduodenoscopy (EGD) History of hysterectomy History of lithotripsy History of tooth extraction Social History Smoking Status: Never smoker Second Hand Exposure: No; Hx Alcohol Use: No Hx Substance Use: No Preferred Language: Romanian Communication Ability: Effective Tank Cleaning Supervisor Required: No Beliefs That Will Affect Care: None Current Living Situation: Spouse Feels Safe at Home: Yes Assistive Devices: Glasses Results & Data Results & Data ([facility]) Vital Signs (Past 12 Hours) Vital Signs Temp Pulse Resp BP Pulse Ox 11/05/20 16:33 36.5 C 107 H 24 193/87 H 96 Laboratory Results Home Medications Medication Instructions Recorded Confirmed albuterol sulfate [Proventil HFA] 2 puff INHALATION Q6H PRN 01/24/20 11/04/20 atorvastatin 20 mg PO QAM 01/24/20 11/04/20 fluticasone propionate 2 spray INTRANASAL QAM 01/24/20 11/04/20 losartan 100 mg PO QAM 01/24/20 11/04/20 amitriptyline 25 mg PO HS PRN 07/20/20 11/04/20 leflunomide 20 mg PO QAM 07/20/20 11/04/20 ibuprofen 800 mg PO DAILY PRN 11/04/20 11/04/20 omega-3 fatty acids [Fish Oil] 1,000 mg PO QAM 11/04/20 11/04/20 omeprazole 20 mg PO BID 11/04/20 11/04/20 potassium chloride [Klor-Con 10] 20 meq PO QAM 11/04/20 11/04/20 Previous Rx's Medication Instructions Recorded acetaminophen 650 mg PO Q6H PRN #30 tab 03/16/20 amlodipine [Norvasc] 10 mg PO QAM #60 tab 03/16/20 hydrochlorothiazide 12.5 mg PO QAM #14 tab 03/16/20 magnesium oxide 400 mg PO BID #20 tab 03/16/20 tizanidine 4 mg PO TID PRN #20 tab 03/16/20 Diagnostic Findings Xray KUB HISTORY: Left-sided stone. Follow-up. COMPARISON: Abdomen and pelvis CT 10/25/2020. FINDINGS: The bowel gas pattern is unremarkable. There are no dilated loops of small bowel to suggest an obstruction. No change in position of the 1.6 cm left UPJ stone. Calcifications in the left deep pelvis are consistent with phleboliths. No renal calculi identified. Stable splenomegaly. Prior cholecystectomy. No pneumoperitoneum or pneumatosis. IMPRESSION: 1. No change in position of the 1.6 cm left UPJ stone. 2. Stable splenomegaly. Medications Administered Current Inpatient Medications Morphine Sulfate (Morphine Sulfate 10 Mg/Ml Carp/Vial) 6 mg IV Q10M PRN PRN Reason: Pain Last Admin: 11/05/20 16:51 Dose: 6 mg Documented by: Code Status & VTE Plan VTE Prophylaxis Plan VTE Prophylaxis will be ordered: Yes
[2020-11-05] MEDS ORDERED: cefTRIAXone SODIUM 2,000 MG/70 ML BAG IV STA (19:30)
[2020-11-05] MEDS ORDERED: NON-FORMULARY MEDICATION (Leflunomide 20 mg tablet) PO SCH (20:11)
[2020-11-05] MEDS ORDERED: ONDANSETRON INJ 2 MG/ML 2 ML VIAL IV PRN (20:11)
[2020-11-05] MEDS ORDERED: ALUMINUM/MAGNESIUM SUSP 30 ML UDC PO PRN (20:11)
[2020-11-05] MEDS ORDERED: POLYETHYLENE (MIRALAX) 17 GM PACK PO PRN (20:11)
[2020-11-05] MEDS ORDERED: ACETAMINOPHEN 325 MG TAB PO PRN ×2 (20:11)
[2020-11-05] MEDS ORDERED: MAGNESIUM HYDROXIDE SUSP 30 ML UDC PO PRN (20:11)
[2020-11-05] MEDS ORDERED: tiZANidine HCL 4 MG TABLET PO PRN (20:11)
[2020-11-05] MEDS ORDERED: AMITRIPTYLINE HCL 25 MG TAB PO PRN (20:11)
[2020-11-05] MEDS ORDERED: PROMETHAZINE HCL 12.5 MG in SODIUM CHLORIDE 0.9% 50 ML IV STA (20:17)
[2020-11-05] MEDS: SODIUM CHLORIDE 0.9% 1000ML 1,000 ML IV SCH (20:26)
[2020-11-05] MEDS ORDERED: IBUPROFEN 800 MG TAB PO PRN (20:54)
[2020-11-05] MEDS ORDERED: TAMSULOSIN HCL 0.4 MG CAP PO SCH (21:00)
[2020-11-05] MEDS ORDERED: METOCLOPRAMIDE HCL INJ 5 MG/ML 2 ML VIAL IV ONE (21:16)
[2020-11-05] MEDS: KETOROLAC 30 MG/ML VIAL IV SCH (21:51)
[2020-11-05] MEDS: MAGNESIUM OXIDE 400 MG TAB PO SCH (21:52)
[2020-11-05] MEDS: cefTRIAXone SODIUM 2,000 MG in DEXTROSE 5% 50 ML IV SCH (21:53)
--- NOTE | 2020-11-05 21:53 | Urology Consultation ---
Date of Consultation November 05, 2020 Assessment & Plan (1) Ureteral colic: Prior to presentation to the emergency department the patient had a known left-sided stone. She was scheduled for urologic intervention on November 14 of this year. Due to intractable pain as well as nausea vomiting she has been admitted by the medical service. We will proceed as follows: Provide analgesics Provide antiemetics Hydrate with IV fluids Due to urinalysis findings a urine culture has been sent and she has been started on antibiotics in the form of Rocephin. This should continue and antibiotics can be changed based on culture results. Continue Flomax to help expel the kidney stone Due to the size of the patient's kidney stone is unlikely she will pass the stone on her own. We will therefore make her n.p.o. after midnight and add her to the operating room schedule for tomorrow. The patient at time of presentation had markedly elevated blood pressure which has improved. The medical service is working on controlling this. Further recommendations will be forthcoming based on the patient's clinical course as it unfolds as well as operative findings. History of Present Illness Reason for Consultation: Nephrolithiasis Attending Physician: Candie Anderson MD History of Present Illness This is a 60-year-old female who was seen as an outpatient in the [facility] physician group urology clinic on October 30 of this year. She was seen due to an obstructing kidney stone measuring approximately 1 cm on the left side. Patient reports that she was scheduled for procedural intervention on November 14 of this year. She presented to [facility] emergency department earlier today due to intractable left-sided pain. Patient notes that the pain is located in her left back/flank. It does radiate somewhat to her left lower abdomen/groin. She has associated nausea vomiting. She denies any fevers shakes or chills. She denies hematuria or dysuria. She does note some relief of the pain with medicines that have been administered since her admission and she also notes relief of her nausea with medicines as well. Patient had diagnostic imaging as well as labs performed in the emergency department as well as an outpatient CT scan now independently reviewed by myself. A CT scan of the abdomen on October 25 of this year showed a 1 cm stone on the left side at the ureteropelvic junction resulting in some obstructive changes. A renal ultrasound today showed no evidence of hydronephrosis. KUB today again showed the presence of a left-sided kidney stone however on the study it measured approximately 1.6 cm. A CBC today revealed her white blood cell count, hemoglobin, hematocrit, and platelet count were all within normal range. A chemistry profile showed her sodium, potassium, BUN, and creatinine were all within normal range. Urinalysis revealed 3+ blood as well as pyuria and a positive leukocyte esterase. A Covid test was performed and was noted to be negative. At the time my exam she was resting comfortably in bed her pain was better controlled and she was in no distress. Allergies Allergy/AdvReac Type Severity Reaction Status Date / Time sulfamethoxazole Allergy Intermediate ITCHING Verified 11/05/20 19:04 trimethoprim Allergy Intermediate ITCHING Verified 11/05/20 19:04 naproxen AdvReac Intermediate NAUSEA AND Verified 11/05/20 19:04 [id number] Home Medications Medication Instructions Recorded Confirmed Type albuterol sulfate [Proventil HFA] 2 puff INHALATION Q6H PRN 01/24/20 11/05/20 History losartan 100 mg PO QAM 01/24/20 11/05/20 History acetaminophen 650 mg PO Q6H PRN #30 tab 03/16/20 11/05/20 Rx magnesium oxide 400 mg PO BID #20 tab 03/16/20 11/05/20 Rx tizanidine 4 mg PO TID PRN #20 tab 03/16/20 11/05/20 Rx leflunomide 20 mg PO QAM 07/20/20 11/05/20 History ibuprofen 800 mg PO DAILY PRN 11/04/20 11/05/20 History omega-3 fatty acids [Fish Oil] 1,000 mg PO QAM 11/04/20 11/05/20 History potassium chloride [Klor-Con 10] 20 meq PO QAM 11/04/20 11/05/20 History amlodipine 10 mg PO DAILY 11/05/20 11/05/20 History atorvastatin 20 mg PO DAILY 11/05/20 11/05/20 History fluticasone propionate 2 spray INTRANASAL DAILY 11/05/20 11/05/20 History hydrochlorothiazide 12.5 mg PO .? 11/05/20 11/05/20 History pantoprazole 40 mg PO BID 11/05/20 11/05/20 History sucralfate 1 g PO BID 11/05/20 11/05/20 History Patient History Medical History Chronic cough inhaler for this > rare use > no asthma dx GERD (gastroesophageal reflux disease) High blood pressure Hyperlipidemia IBS (irritable bowel syndrome) Insomnia Kidney stones Migraine Osteoarthritis Rheumatoid arthritis Surgical History H/O endoscopic retrograde cholangiopancreatography History of appendectomy History of cholecystectomy History of colonoscopy History of cystoscopy History of dilatation and curettage History of esophagogastroduodenoscopy (EGD) History of hysterectomy History of lithotripsy History of tooth extraction Social History Smoking Status: Former smoker Second Hand Exposure: No; Hx Alcohol Use: No Hx Substance Use: No Preferred Language: Nepali Communication Ability: Effective Senior Environmental Technician Required: No Beliefs That Will Affect Care: None Current Living Situation: Spouse Feels Safe at Home: Yes Assistive Devices: Glasses Review of Systems Constitutional: no fever and no chills Eyes: no diplopia Ear, Nose, Mouth, Throat: no ear pain Respiratory: no cough and no dyspnea Cardiovascular: no chest pain Gastrointestinal: + abdominal pain (Radiating from left flank), + nausea and + vomiting Genitourinary: + flank pain (Left-sided); no dysuria and no hematuria Musculoskeletal: + back pain (Left-sided) Integumentary: no rash Neurologic: no localized weakness Physical Exam Constitutional: well developed and well nourished; no acute distress Eyes: no conjunctival abnormality ENMT: Ears: no hearing impairment Neck: trachea midline Respiratory: normal respiratory effort, lungs clear to auscultation normal respiratory effort; no respiratory distress and no labored breathing Cardiovascular: Rate/Rhythm: regular rate and regular rhythm Gastrointestinal (Abdomen): Abdomen is soft and nondistended. There is no pain with palpation. Bowel sounds are present. Musculoskeletal: No calf tenderness Skin: no rashes, warm and dry Neurologic: moves all extremities Psychiatric: A+Ox3, euthymic affect Genitourinary: + CVA tenderness (Left-sided CVA tenderness noted with light percussion) Results & Data ([facility]) Vital Signs (Past 12 Hours) Vital Signs Temp Pulse Pulse Resp BP BP Pulse Ox 11/05/20 20:11 36.4 C L 74 18 158/86 H 97 11/05/20 19:44 80 18 142/80 H 98 11/05/20 19:15 103 H 16 165/97 H 97 11/05/20 17:49 74 20 157/90 H 99 11/05/20 16:33 36.5 C 107 H 24 193/87 H 96 PG Care Time/CCT Total # of Minutes Spent Total Time Spent with Patient: Total time spent is greater than 50% in coordination of care (as documented) at patient's floor/unit and/or counseling patient: Coding Level of Care Code 67281 Inpt Consult Level 5 Diagnoses Ureteral colic N23
[2020-11-05] MEDS: PANTOprazole 40 MG TAB PO SCH (23:51)
[2020-11-06] MEDS: KETOROLAC 30 MG/ML VIAL IV SCH ×3 (02:33→15:36)
[2020-11-06] MEDS: SODIUM CHLORIDE 0.9% 1000ML 1,000 ML IV SCH ×3 (04:51→21:23)
[2020-11-06] MEDS: HYDROmorphone INJ 1 MG/ML SYRINGE IV PRN ×2 (05:33→09:03)
[2020-11-06] MEDS ORDERED: HYDROmorphone INJ 0.5 MG/0.5 ML SYR IV STA ×2 (06:20→10:29)
[2020-11-06 08:01] LABS: Eosinophils # (auto) 0.08 K/uL (0-0.5); Eosinophils % (auto) 1.4 %; Hematocrit (blood only) 34.4 % (37-47); Hemoglobin 11.8 g/dL (12.0-16.0); Immature Granulocytes # (auto) 0.01 K/uL (0.00-0.02); Immature Granulocytes % (auto) 0.2 %; Lymphocytes # (auto) 1.05 K/uL (1.2-3.4); Lymphocytes % (auto) 18.6 %; Mean Corpuscular Hemoglobin 28.7 pg (25-34); Mean Corpuscular Hgb Conc 34.3 g/dL (32-36); Mean Corpuscular Volume 83.7 fL (80-100); Mean Platelet Volume 9.3 fL (7.4-10.4); Monocytes # (auto) 0.55 K/uL (0.11-0.59); Monocytes % (auto) 9.7 %; Neutrophils # (auto) 3.96 K/uL (1.4-6.5); Neutrophils % (auto) 70.1 %; Platelet Count 107 K/uL (130-400); RDW Coefficient of Variation 13.3 % (11.5-14.5); RDW Standard Deviation 40.5 fL (36.4-46.3); Red Blood Count 4.11 M/uL (4.2-5.4); White Blood Count 5.65 K/uL (4.8-10.8)
[2020-11-06] MEDS: MAGNESIUM OXIDE 400 MG TAB PO SCH ×2 (08:16→20:34)
[2020-11-06] MEDS: PANTOprazole 40 MG TAB PO SCH ×2 (08:16→20:34)
[2020-11-06] MEDS: FLUTICASONE PROPIONATE NA SPR 16 GM BTL NAE SCH (08:16)
[2020-11-06] MEDS: POTASSIUM CHLORIDE CRTAB 20 MEQ TABCR PO SCH (08:16)
[2020-11-06] MEDS: ATORVASTATIN 20 MG TAB PO SCH (08:16)
[2020-11-06] MEDS: amLODIPine BESYLATE 5 MG TAB PO SCH (08:16)
[2020-11-06] MEDS: OMEGA-3 (PURIFIED FISH OIL) 1 GM CAP PO SCH (08:16)
[2020-11-06] MEDS: LOSARTAN POTASSIUM 50 MG TAB PO SCH (08:16)
--- NOTE | 2020-11-06 08:21 | Urology Progress Note ---
Date of Service November 06, 2020 Assessment & Plan (1) Calculus of proximal left ureter: (2) Acute flank pain: 60yo F admitted with intractable left flank pain and associated nausea vomiting secondary to a 1cm left UPJ calculus -Afebrile, VSS. -Labs reviewed, Wbc and creatinine stable -Urine culture pending, continue broad spectrum antibiotics pending final culture -Plan of care discussed with Dr. Murcia -Keep NPO -Given her intractable left flank pain and associated nausea vomiting in the context of an obstructing 1 cm left UPJ stone, will proceed with OR for Cystoscopy and Left ureteral stent placement. Risks and benefits to be reviewed with patient by Dr. Murcia. OR notified. On IV Ceftriaxone. Covid test negative. -Expected clinical course reviewed with patient. -She is agreeable to plan, all questions were answered. Admission and Anticipated Discharge Date Admission Date: November 05, 2020 Supervising Physician Co-Signing Physician Notes Agree with above. Subjective Pt examined at bedside this AM. Awake, sitting up in bed on arrival. Continues with left flank/back pain, managing with IV pain medication. Some nausea and dry heaves. She also reports some hematuria and dysuria. Denies fevers or chills. Feels she is emptying her bladder. She has been NPO. Chart review: Afebrile, Wbc 5.65, Cr 0.71. On IV Ceftriaxone. Urine culture pending. Review of Systems Constitutional: as per Subjective / HPI Gastrointestinal: as per Subjective / HPI Genitourinary: as per Subjective / HPI Physical Exam Constitutional: well developed and well nourished; no acute distress Respiratory: normal respiratory effort and able to speak in complete sentences Cardiovascular: Extremities: no calf tenderness Gastrointestinal (Abdomen): Inspection/Auscultation: abdomen not distended Percussion/Palpation: + abdomen tender (Left flank tenderness to palpation) and abdomen soft Skin: Warm and dry. No visible rashes or lesions. Neurologic: moves all extremities and awake; not confused Psychiatric: Orientation: alert, oriented x 3 and cooperative Genitourinary: + CVA tenderness (Left) Results & Data ([facility]) Vital Signs (Past 12 Hours) Vital Signs Temp Pulse Pulse Resp BP Pulse Ox 11/06/20 07:37 64 11/06/20 07:22 36.6 C 70 20 137/81 95 11/06/20 03:22 36.5 C 64 17 143/82 H 96 11/06/20 00:00 69 11/05/20 23:07 36.5 C 60 16 125/62 94 11/05/20 20:30 68 PG Care Time/CCT Total # of Minutes Spent Total Time Spent with Patient: Total time spent is greater than 50% in coordination of care (as documented) at patient's floor/unit and/or counseling patient: Coding Level of Care Code 31310 Subseq Hosp Care Lvl 2 Diagnoses Calculus of proximal left ureter N20.1 Acute flank pain R10.9
[2020-11-06 08:28] LABS: BUN Creatinine Ratio 17.4 (10-20); Calcium 8.6 mg/dl (8.5-10.1); Creatinine Clr Calc Pharmacy 89.6 ml/min; Est GFR (African American) 108.8; Est GFR (Non-African American) 93.9; Potassium 3.6 mmol/L (3.5-5.1)
[2020-11-06] MEDS ORDERED: LEFLUNOMIDE 10 MG TAB PO SCH (09:00)
[2020-11-06] MEDS ORDERED: hydroCHLOROthiazide 25 MG TAB PO SCH (09:00)
[2020-11-06] MEDS ORDERED: PROMETHAZINE HCL 12.5 MG in SODIUM CHLORIDE 0.9% 50 ML IV PRN (10:33)
[2020-11-06] MEDS ORDERED: PROMETHAZINE HCL 12.5 MG in SODIUM CHLORIDE 0.9% 50 ML IV STA (10:34)
[2020-11-06] MEDS: ACETAMINOPHEN 1,000 MG/100 ML VIAL IV SCH ×2 (11:13→19:00)
--- NOTE | 2020-11-06 13:11 | Anesthesiology Consultation ---
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 Surgery Operation Date: 11/06/20 08:50 Proposed Procedures p Cystoscopy, Left Stent Insertion - Mario Alberto Murcia MD Height/Weight Height: 5 ft 6 in Weight: 75.4 kg Allergies Allergy/AdvReac Type Severity Reaction Status Date / Time sulfamethoxazole Allergy Intermediate ITCHING Verified 11/05/20 19:04 trimethoprim Allergy Intermediate ITCHING Verified 11/05/20 19:04 naproxen AdvReac Intermediate NAUSEA AND Verified 11/05/20 19:04 [id number] Medications Home Medications Medication Instructions Recorded Confirmed Last Taken albuterol sulfate [Proventil HFA] 2 puff INHALATION Q6H PRN 01/24/20 11/05/20 Unknown losartan 100 mg PO QAM 01/24/20 11/05/20 03/14/20 acetaminophen 650 mg PO Q6H PRN #30 tab 03/16/20 11/05/20 Unknown magnesium oxide 400 mg PO BID #20 tab 03/16/20 11/05/20 Unknown tizanidine 4 mg PO TID PRN #20 tab 03/16/20 11/05/20 Unknown leflunomide 20 mg PO QAM 07/20/20 11/05/20 Unknown ibuprofen 800 mg PO DAILY PRN 11/04/20 11/05/20 Unknown omega-3 fatty acids [Fish Oil] 1,000 mg PO QAM 11/04/20 11/05/20 Unknown potassium chloride [Klor-Con 10] 20 meq PO QAM 11/04/20 11/05/20 Unknown amlodipine 10 mg PO DAILY 11/05/20 11/05/20 Unknown atorvastatin 20 mg PO DAILY 11/05/20 11/05/20 Unknown fluticasone propionate 2 spray INTRANASAL DAILY 11/05/20 11/05/20 Unknown hydrochlorothiazide 12.5 mg PO .? 11/05/20 11/05/20 Unknown pantoprazole 40 mg PO BID 11/05/20 11/05/20 Unknown sucralfate 1 g PO BID 11/05/20 11/05/20 Unknown Active Medications Generic Name Dose Route Start Last Admin Trade Name Freq PRN Reason Stop Dose Admin Amlodipine Besylate 10 mg 11/06/20 09:00 11/06/20 08:16 Amlodipine Besylate 5 Mg Tab PO 12/06/20 08:59 10 mg QAM MACY Administration Atorvastatin Calcium 20 mg 11/06/20 09:00 11/06/20 08:16 Atorvastatin 20 Mg Tab PO 12/06/20 08:59 20 mg QAM MACY Administration Fish Oil 1 gm 11/06/20 09:00 11/06/20 08:16 [place]-3 (Purified Fish Oil) 1 Gm Cap PO 12/06/20 08:59 1 gm QAM MACY Administration Fluticasone Propionate 2 sprays 11/06/20 09:00 11/06/20 08:16 Fluticasone Propionate Na Spr 16 Gm Btl KARMEN 12/06/20 08:59 2 sprays QAM MACY Administration Hydromorphone HCl 1 mg 11/05/20 20:11 11/06/20 09:03 Hydromorphone Inj 1 Mg/Ml Syringe IV 11/19/20 20:10 1 mg Q3H PRN Administration Pain Ceftriaxone Sodium 2,000 mg/ 50 mls @ 100 mls/hr 11/05/20 21:00 11/05/20 22:33 Dextrose IV 11/10/20 20:59 Infused Q24H MACY Infusion Protocol Sodium Chloride 1,000 mls @ 125 mls/hr 11/05/20 20:11 11/06/20 04:51 Nss 1000ml IV 12/05/20 20:10 125 mls/hr .Q8H MACY Administration Acetaminophen 1,000 mg in 100 mls @ 400 mls/hr 11/06/20 10:30 11/06/20 11:32 Ofirmev IV 11/09/20 10:29 Infused Q8H MACY Infusion Ketorolac Tromethamine 30 mg 11/05/20 21:00 11/06/20 08:16 Ketorolac 30 Mg/Ml Vial IV 11/06/20 15:01 30 mg Q6H MACY Administration Leflunomide 20 mg 11/06/20 09:00 11/06/20 08:16 Leflunomide 10 Mg Tab PO 12/06/20 08:59 20 mg QAM MACY Administration Losartan Potassium 100 mg 11/06/20 09:00 11/06/20 08:16 Losartan Potassium 50 Mg Tab PO 12/06/20 08:59 100 mg QAM MACY Administration Magnesium Oxide 400 mg 11/05/20 21:00 11/06/20 08:16 Magnesium Oxide 400 Mg Tab PO 12/05/20 20:59 400 mg BID MACY Administration Ondansetron HCl 4 mg 11/05/20 20:11 11/06/20 06:35 Ondansetron Inj 2 Mg/Ml 2 Ml Vial IV 12/05/20 20:10 4 mg Q6H PRN Administration Nausea Pantoprazole Sodium 40 mg 11/05/20 21:00 11/06/20 08:16 Pantoprazole 40 Mg Tab PO 12/05/20 20:59 40 mg BID MACY Administration Protocol Potassium Chloride 20 meq 11/06/20 09:00 11/06/20 08:16 Potassium Chloride Crtab 20 Meq Tabcr PO 12/06/20 08:59 20 meq QAM MACY Administration Tamsulosin HCl 0.4 mg 11/05/20 21:00 11/05/20 21:52 Tamsulosin Hcl 0.4 Mg Cap PO 12/05/20 20:59 0.4 mg HS MACY Administration Past Medical History Medical History Chronic cough inhaler for this > rare use > no asthma dx GERD (gastroesophageal reflux disease) High blood pressure Hyperlipidemia IBS (irritable bowel syndrome) Insomnia Kidney stones Migraine Osteoarthritis Rheumatoid arthritis Past Surgical History Surgical History H/O endoscopic retrograde cholangiopancreatography History of appendectomy History of cholecystectomy History of colonoscopy History of cystoscopy History of dilatation and curettage History of esophagogastroduodenoscopy (EGD) History of hysterectomy History of lithotripsy History of tooth extraction Social History Smoking Status: Former smoker Hx Alcohol Use: No Hx Substance Use: No substance use type: does not use Physical Exam Vital Signs Last Vital Signs Temp 97.7 F 11/06/20 11:39 Pulse 77 11/06/20 11:39 Resp 18 11/06/20 11:39 BP 159/82 H 11/06/20 11:39 Pulse Ox 96 11/06/20 11:39 Testing Laboratory Results 11/06/20 07:54 11/06/20 07:54 Urine Color [place] 11/05/20 16:43 Urine Appearance Turbid (Clear) A 11/05/20 16:43 Urine pH 5.0 (4.5-7.5) 11/05/20 16:43 Ur Specific [place] 1.025 (1.000-1.030) 11/05/20 16:43 Urine Protein 3+ (Negative) H 11/05/20 16:43 Urine Glucose (UA) Negative (Negative) 11/05/20 16:43 Urine Ketones Negative (Negative) 11/05/20 16:43 Urine Nitrite Negative (Negative) 11/05/20 16:43 Ur Leukocyte Esterase 1+ (Negative) H 11/05/20 16:43 Urine WBC (Auto) 10-30 /hpf (0-5) H 11/05/20 16:43 Urine RBC (Auto) >30 /hpf (0-4) H 11/05/20 16:43 U Hyaline Cast (Auto) 0 /lpf (0-5) 11/05/20 16:43 U Epithel Cells (Auto) >30 /lpf (0-5) H 11/05/20 16:43 Urine Bacteria (Auto) Negative (Negative) 11/05/20 16:43 11/05/20 16:43 Urine Culture - Final Urine,Clean Catch More than three types of organisms present, all low counts mixed probable skin pawan. No further identifications or sensitivities to follow. Laboratory Tests 11/05/20 17:35 SARS-CoV-2 (PCR) NEGATIVE Electrocardiogram Date: 03/15/20 Normal sinus rhythm, rate 60 bpm Prolonged QT Abnormal ECG When compared with ECG of 16-SEP-2017 15:57, QT has lengthened Confirmed by Manuel Truong ([id number]) on 03/16/2020 6:55:14 AM
[2020-11-06] MEDS ORDERED: ATROPINE SULFATE 0.1 MG/ML 10ML SYR IV PRN (13:13)
[2020-11-06] MEDS ORDERED: ePHEDrine sulfate 50 MG/ML AMP IV PRN (13:13)
[2020-11-06] MEDS ORDERED: ONDANSETRON INJ 2 MG/ML 2 ML VIAL IV PRN (13:13)
[2020-11-06] MEDS ORDERED: fentaNYL citrate 100 MCG/2 ML VIAL IV PRN (13:13)
--- NOTE | 2020-11-06 13:27 | History & Physical Bridge Note ---
Date of Service November 06, 2020 History & Physical Bridge Note I have examined the patient, reviewed the History & Physical and in the interval since the performance of the History & Physical I have noted the following changes of clinical significance: no changes noted
[2020-11-06] MEDS ORDERED: MIDAZOLAM HCL 1 MG/ML 2ML VIAL ONE (13:42)
[2020-11-06] MEDS ORDERED: fentaNYL citrate 100 MCG/2 ML VIAL ONE (13:44)
[2020-11-06] MEDS ORDERED: LIDOCAINE HCL 2% 2 ML VIAL/AMP(20MG/ML) INFIL ONE (14:07)
[2020-11-06] MEDS ORDERED: PROPOFOL IV EMULSION 10 MG/ML 20 ML VIAL IV ONE (14:07)
[2020-11-06] MEDS ORDERED: DEXAMETHASONE SOD INJ 4 MG/ML VIAL ONE (14:07)
[2020-11-06] MEDS ORDERED: ONDANSETRON INJ 2 MG/ML 2 ML VIAL ONE (14:09)
[2020-11-06] MEDS ORDERED: DIATRIZOATE MEGLUMINE 30% 100ML VIAL INSTIL ONE (14:25)
--- NOTE | 2020-11-06 14:53 | Anesthesiology Progress Note ---
Date of Service November 06, 2020 Anesthesia Post Procedure Vital Signs Vital Signs: Temp Pulse Pulse Pulse Resp BP BP 11/06/20 14:40 73 12 104/62 11/06/20 14:33 36.7 C 73 16 120/56 L 11/06/20 13:38 36.1 C L 96 H 18 152/74 H 11/06/20 11:39 36.5 C 77 18 159/82 H 11/06/20 07:37 64 11/06/20 07:22 36.6 C 70 20 137/81 11/06/20 03:22 36.5 C 64 17 143/82 H 11/06/20 00:00 69 11/05/20 23:07 36.5 C 60 16 125/62 11/05/20 20:30 68 11/05/20 20:11 36.4 C L 74 18 158/86 H 11/05/20 19:44 80 18 142/80 H 11/05/20 19:15 103 H 16 165/97 H 11/05/20 17:49 74 20 157/90 H 11/05/20 16:33 36.5 C 107 H 24 193/87 H Pulse Ox 11/06/20 14:40 98 11/06/20 14:33 98 11/06/20 13:38 96 11/06/20 11:39 96 11/06/20 07:37 11/06/20 07:22 95 11/06/20 03:22 96 11/06/20 00:00 11/05/20 23:07 94 11/05/20 20:30 11/05/20 20:11 97 11/05/20 19:44 98 11/05/20 19:15 97 11/05/20 17:49 99 11/05/20 16:33 96 Pain Intensity Flank: Pain Intensity: 2 Transfer of Care Handoff Completed per policy Notes Mental Status: alert / awake / arousable Patient Amnestic to Procedure: Yes Nausea / Vomiting: adequately controlled Pain: adequately controlled Airway Patency, RR, SpO2: stable & adequate BP & HR: stable & adequate Hydration State: stable & adequate Anesthetic Complications: no major complications apparent
--- NOTE | 2020-11-06 14:56 | Fluoroscopy Report ---
FL retrograde includes kub CLINICAL HISTORY: LT CYSTO/LASER/STENT COMPARISON STUDY: CT of the abdomen and pelvis October 25, 2020. Renal ultrasound and KUB November 05. FLUOROSCOPY TIME: 46 seconds. FLUOROSCOPIC IMAGES: 8 FINDINGS: Fluoroscopy was provided during cystoscopy and left retrograde exam with ureteral stent ins ertion. Stent is appropriately positioned. IMPRESSION: Fluoroscopy provided during cystoscopy, left retrograde exam and ureteral stent insertio n. ACT 112: Negative or not required by law. Electronically signed by: Jean Pierre Watkins M.D. 11/06/2020 2:55 PM
--- NOTE | 2020-11-06 15:25 | Operative Report ---
PG Post Operative Report Pre & Post Diagnosis Operation Date: 11/06/20 08:50 Pre-Op Diagnosis: Calculus of proximal left ureter Post-Op Diagnosis: Calculus of proximal left ureter I identified the patient and participated in the time-out.: Yes Procedure Operation Date: 11/06/20 08:50 Actual Procedures p Cystoscopy, Left Stent Insertion(Left) - Mario Alberto Murcia MD Surgeon Mario Alberto Murcia MD Central Office Repairer Supervisor None Estimated Blood Loss 0 Findings See Below Cystoscopy showed a normal urethra bladder showed no mucosal abnormalities left retrograde showed stone at the proximal left ureter Specimens None Drains 6 Japanese by 26 cm left ureteral stent Anesthesia Type MAC Complications none Disposition Accompanied Patient To Recovery: Yes Disposition: Recovery Room Indications 60-year-old white female with a left ureteral calculus being brought in for stent placement Description of Procedure After the induction of an adequate level of intravenous sedation appropriate timeout patient was placed in the dorsolithotomy position. Lower abdomen and genitalia were prepped with Hibiclens draped in sterile fashion. Using a 22 Japanese scope routine cystoscopic exam was performed the above-noted findings. Next an open-ended catheter was advanced into the left ureteral orifice and a left retrograde pyelogram was performed. Next through the open-ended catheter 0.03 guidewire was passed up the left ureter under fluoroscopic guidance to position in the renal pelvis the open-ended catheter was removed and a 6 Japanese by 26 cm stent was passed over the guidewire under fluoroscopic guidance until positioned in the left renal pelvis confirmed by fluoroscopy. Guidewire was removed there was good curl at the bladder level. All needle sponge and instrument counts were correct at the end of the case. Patient tolerated the procedure well was taken recovery in stable condition I attest to the content of the Intraoperative Record and any orders documented therein. Any exceptions are noted below.
--- NOTE | 2020-11-06 15:45 | Hospitalist Progress Note ---
Date of Service November 06, 2020 Assessment & Plan (1) Ureteral colic: admitted with left flank pain per Dr. Anderson notes: was seen by Urology on clinic last week , developed worsening of left flank pain ,sharp , severe KUB as noted above obstructed 1.6 mm stone in left UPJ , positive have not changed from previous scan no evidence of sepsis normal white count , no fever ------ afebrile, crea stable for cystoscopy, stent placement today added Ofirmev TID continue Toradol, Dilaudid continue Ceftriaxone, ff up urine culture monitor (2) Renal colic: (3) Calculus of proximal left ureter: (4) Hypertensive urgency: on admission, BP 193/87 possible due to severe renal colic /left flank pain --BP improving -- continue usual medications hold HCTZ Hx of RA ( Rheumatoid arthritis ) hold leflunomide Full code DVT prophylaxis : scd and teds Disposition : plan to dc home when medically stable Admission and Anticipated Discharge Date Admission Date: November 05, 2020 Subjective ff up for left ureteral stone seen sitting up in bed states Left back pain is still 6/10 (+) nausea, vomiting no chills no chest pain, dyspnea, palpitations, dizziness Review of Systems Review of Systems: All systems reviewed & are unremarkable except as noted in Subjective Physical Exam Physical Exam: General- oriented x 3, not in distress, speaks in sentences with no effort or accessory muscle use Head- atraumatic Eyes- PERRL, EOMI, anicteric ENT- oropharynx clear Neck- supple, no JVD, no adenopathy, no thyromegaly; carotids +2/2, no bruits appreciated Lungs- clear to auscultation bilaterally, no rales/wheezes Heart- normal rate, regular rhythm; no murmur, no gallop, no rub appreciated Abdomen- normal bowel sounds, nondistended, soft, nontender, no masses or hepatosplenomegaly no CVA tenderness Extremities- no pretibial edema, no calf tenderness; peripheral pulses intact Neuro- alert, oriented x 3; CN 2-12 grossly intact; motor 5/5 bilaterally;sen sation 100% on all extremities; no other gross focal neurologic deficits Skin- warm & dry Results & Data Results & Data ([facility]) Vital Signs (Past 12 Hours) Vital Signs Temp Pulse Pulse Pulse Resp BP Pulse Ox 11/06/20 15:25 36.4 C L 62 20 141/76 H 95 11/06/20 15:10 70 12 122/65 92 11/06/20 15:00 36.4 C L 73 12 126/70 95 11/06/20 14:40 73 12 104/62 98 11/06/20 14:33 36.7 C 73 16 120/56 L 98 11/06/20 13:38 36.1 C L 96 H 18 152/74 H 96 11/06/20 11:39 36.5 C 77 18 159/82 H 96 11/06/20 07:37 64 11/06/20 07:22 36.6 C 70 20 137/81 95 all noted and reviewed including below Laboratory Results Laboratory Results - last 24 hr 11/05/20 11/05/20 11/05/20 16:43 16:43 16:43 WBC 8.29 RBC 5.00 Hgb 14.3 Hct 41.9 MCV 83.8 MCH 28.6 MCHC 34.1 RDW Std Deviation 39.5 RDW Coeff of Rad 13.2 Plt Count 182 MPV 9.9 Immature Gran % (Auto) Neut % (Auto) Lymph % (Auto) [place] % (Auto) Eos % (Auto) Baso % (Auto) Neut # (Auto) Lymph # (Auto) [place] # (Auto) Eos # (Auto) Baso # (Auto) Immature Gran # (Auto) Sodium 141 Potassium 3.8 Chloride 112 H Carbon Dioxide 23 Anion Gap 6.0 BUN 14 Creatinine 0.85 Est Cr Clr Drug Dosing 73.3 Est GFR ( Amer) 87.5 Est GFR (Non-Af Amer) 75.5 BUN/Creatinine Ratio 16.7 Glucose 115 H Calcium 9.6 Urine Color [place] Urine Appearance Turbid A Urine pH 5.0 Ur Specific [place] 1.025 Urine Protein 3+ H Urine Glucose (UA) Negative Urine Ketones Negative Urine Blood 3+ H Urine Nitrite Negative Urine Bilirubin 1+ H Urine Urobilinogen Negative Ur Leukocyte Esterase 1+ H Urine WBC (Auto) 10-30 H Urine RBC (Auto) >30 H U Hyaline Cast (Auto) 0 U Epithel Cells (Auto) >30 H Urine Bacteria (Auto) Negative Urine Yeast Not Reportable COVID-19 Eval Order SARS-CoV-2 (PCR) Influenza Type A (PCR) Influenza Type B (PCR) RSV (RT-PCR) 11/05/20 11/05/20 11/06/20 17:35 17:35 07:54 WBC 5.65 RBC 4.11 L Hgb 11.8 L Hct 34.4 L MCV 83.7 MCH 28.7 MCHC 34.3 RDW Std Deviation 40.5 RDW Coeff of Rad 13.3 Plt Count 107 L MPV 9.3 Immature Gran % (Auto) 0.2 Neut % (Auto) 70.1 Lymph % (Auto) 18.6 [place] % (Auto) 9.7 Eos % (Auto) 1.4 Baso % (Auto) 0.0 Neut # (Auto) 3.96 Lymph # (Auto) 1.05 L [place] # (Auto) 0.55 Eos # (Auto) 0.08 Baso # (Auto) 0.00 Immature Gran # (Auto) 0.01 Sodium Potassium Chloride Carbon Dioxide Anion Gap BUN Creatinine Est Cr Clr Drug Dosing Est GFR ( Amer) Est GFR (Non-Af Amer) BUN/Creatinine Ratio Glucose Calcium Urine Color Urine Appearance Urine pH Ur Specific [place] Urine Protein Urine Glucose (UA) Urine Ketones Urine Blood Urine Nitrite Urine Bilirubin Urine Urobilinogen Ur Leukocyte Esterase Urine WBC (Auto) Urine RBC (Auto) U Hyaline Cast (Auto) U Epithel Cells (Auto) Urine Bacteria (Auto) Urine Yeast COVID-19 Eval Order CovFluRsv at [facility] SARS-CoV-2 (PCR) NEGATIVE Influenza Type A (PCR) Negative Influenza Type B (PCR) Negative RSV (RT-PCR) Negative 11/06/20 07:54 WBC RBC Hgb Hct MCV MCH MCHC RDW Std Deviation RDW Coeff of Rad Plt Count MPV Immature Gran % (Auto) Neut % (Auto) Lymph % (Auto) [place] % (Auto) Eos % (Auto) Baso % (Auto) Neut # (Auto) Lymph # (Auto) [place] # (Auto) Eos # (Auto) Baso # (Auto) Immature Gran # (Auto) Sodium 142 Potassium 3.6 Chloride 115 H Carbon Dioxide 23 Anion Gap 4.0 BUN 12 Creatinine 0.71 Est Cr Clr Drug Dosing 89.6 Est GFR ( Amer) 108.8 Est GFR (Non-Af Amer) 93.9 BUN/Creatinine Ratio 17.4 Glucose 125 H Calcium 8.6 Urine Color Urine Appearance Urine pH Ur Specific [place] Urine Protein Urine Glucose (UA) Urine Ketones Urine Blood Urine Nitrite Urine Bilirubin Urine Urobilinogen Ur Leukocyte Esterase Urine WBC (Auto) Urine RBC (Auto) U Hyaline Cast (Auto) U Epithel Cells (Auto) Urine Bacteria (Auto) Urine Yeast COVID-19 Eval Order SARS-CoV-2 (PCR) Influenza Type A (PCR) Influenza Type B (PCR) RSV (RT-PCR)
[2020-11-06] MEDS: cefTRIAXone SODIUM 2,000 MG in DEXTROSE 5% 50 ML IV SCH (21:24)
[2020-11-07] MEDS: ACETAMINOPHEN 1,000 MG/100 ML VIAL IV SCH ×2 (01:29→09:35)
[2020-11-07] MEDS: hydrALAZINE HCL 20 MG/ML VIAL IV PRN ×2 (04:13→12:02)
[2020-11-07 05:44] LABS: Immature Granulocytes # (auto) 0.01 K/uL (0.00-0.02); Immature Granulocytes % (auto) 0.2 %; Lymphocytes # (auto) 0.98 K/uL (1.2-3.4); Lymphocytes % (auto) 15.8 %; Mean Corpuscular Hemoglobin 28.4 pg (25-34); Mean Corpuscular Hgb Conc 34.3 g/dL (32-36); Mean Corpuscular Volume 82.9 fL (80-100); Mean Platelet Volume 9.4 fL (7.4-10.4); Monocytes # (auto) 0.42 K/uL (0.11-0.59); Monocytes % (auto) 6.8 %; Neutrophils # (auto) 4.79 K/uL (1.4-6.5); Neutrophils % (auto) 77.2 %; Platelet Count 131 K/uL (130-400); RDW Coefficient of Variation 13.1 % (11.5-14.5); RDW Standard Deviation 39.7 fL (36.4-46.3); Red Blood Count 4.22 M/uL (4.2-5.4)
[2020-11-07 06:12] LABS: BUN Creatinine Ratio 14.5 (10-20); Calcium 8.8 mg/dl (8.5-10.1); Creatinine Clr Calc Pharmacy 99.4 ml/min; Est GFR (Non-African American) 98.4; Potassium 3.7 mmol/L (3.5-5.1)
--- NOTE | 2020-11-07 07:57 | Urology Progress Note ---
Date of Service November 07, 2020 Assessment & Plan (1) Calculus of proximal left ureter: 60yo F admitted with intractable left flank pain and associated nausea vomiting secondary to a 1cm left UPJ calculus -POD #1 s/p Cystoscopy, Left stent placement with Dr. Murcia -Doing well post procedure with improvement in symptoms -Remains afebrile -Labs reviewed, Wbc and creatinine stable -Urine culture with no growth -OK for discharge from perspective -Recommend home with pain control, flomax, and pyridium -Plan for follow-up next week on 11/14 for scheduled procedure for stone treatment -Expected clinical course reviewed with patient, all questions were answered -Thank you for allowing us to participate in the acute care of Mrs. Melton. Please reconsult us with additional questions, concerns or changes in patient status. Admission and Anticipated Discharge Date Admission Date: November 06, 2020 Subjective Pt examined at bedside this AM. Awake, sitting up in bed on arrival. She reports a significant improvement in pain since her procedure. Tolerating the stent with minimal discomfort. Some hematuria and dysuria as expected. Denies nausea or vomiting. Denies fevers or chills. Ambulating without dizziness. Chart review: Afebrile, Wbc 6.20, Cr 0.64 Review of Systems Constitutional: as per Subjective / HPI Gastrointestinal: as per Subjective / HPI Genitourinary: as per Subjective / HPI Physical Exam Constitutional: well developed and well nourished; no acute distress and not ill appearing Respiratory: normal respiratory effort and able to speak in complete sentences Gastrointestinal (Abdomen): Inspection/Auscultation: abdomen not distended Percussion/Palpation: abdomen soft Skin: Warm and dry. No visible rashes or lesions. Neurologic: moves all extremities and awake; not confused Psychiatric: A+Ox3, euthymic affect Results & Data ([facility]) Vital Signs (Past 12 Hours) Vital Signs Temp Pulse Pulse Resp BP BP Pulse Ox 11/07/20 07:24 36.6 C 66 70 18 167/90 H 96 11/07/20 03:14 36.5 C 73 18 171/84 H 95 11/06/20 23:02 36.5 C 71 18 145/81 H 93 11/06/20 19:56 36.6 C 71 18 149/84 H 94 PG Care Time/CCT Total # of Minutes Spent Total Time Spent with Patient: Total time spent is greater than 50% in coordination of care (as documented) at patient's floor/unit and/or counseling patient: Coding Level of Care Code 15823 Subseq Hosp Care Lvl 2 Diagnoses Calculus of proximal left ureter N20.1
[2020-11-07] MEDS: PANTOprazole 40 MG TAB PO SCH (08:22)
[2020-11-07] MEDS: OMEGA-3 (PURIFIED FISH OIL) 1 GM CAP PO SCH (08:22)
[2020-11-07] MEDS: ATORVASTATIN 20 MG TAB PO SCH (08:22)
[2020-11-07] MEDS: MAGNESIUM OXIDE 400 MG TAB PO SCH (08:22)
[2020-11-07] MEDS: POTASSIUM CHLORIDE CRTAB 20 MEQ TABCR PO SCH (08:22)
[2020-11-07] MEDS: amLODIPine BESYLATE 5 MG TAB PO SCH (08:22)
[2020-11-07] MEDS: LOSARTAN POTASSIUM 50 MG TAB PO SCH (08:22)
[2020-11-07] MEDS: FLUTICASONE PROPIONATE NA SPR 16 GM BTL NAE SCH (08:23)
--- NOTE | 2020-11-07 08:59 | Anesthesiology Progress Note ---
Date of Service November 07, 2020 Anesthesia Post Procedure Vital Signs Vital Signs: Temp Pulse Pulse Pulse Resp BP BP 11/07/20 07:24 36.6 C 66 70 18 167/90 H 11/07/20 03:14 36.5 C 73 18 171/84 H 11/06/20 23:02 36.5 C 71 18 145/81 H 11/06/20 19:56 36.6 C 71 18 149/84 H 11/06/20 16:21 36.7 C 71 18 167/89 H 11/06/20 15:25 36.4 C L 62 20 141/76 H 11/06/20 15:10 70 12 122/65 11/06/20 15:00 36.4 C L 69 73 12 126/70 11/06/20 14:40 73 12 104/62 11/06/20 14:33 36.7 C 73 16 120/56 L 11/06/20 13:38 36.1 C L 96 H 18 152/74 H 11/06/20 11:39 36.5 C 77 18 159/82 H Pulse Ox 11/07/20 07:24 96 11/07/20 03:14 95 11/06/20 23:02 93 11/06/20 19:56 94 11/06/20 16:21 94 11/06/20 15:25 95 11/06/20 15:10 92 11/06/20 15:00 95 11/06/20 14:40 98 11/06/20 14:33 98 11/06/20 13:38 96 11/06/20 11:39 96 Pain Intensity Flank: Pain Intensity: 3 Notes Mental Status: alert / awake / arousable and participated in evaluation Patient Amnestic to Procedure: Yes Nausea / Vomiting: adequately controlled Pain: adequately controlled Airway Patency, RR, SpO2: stable & adequate BP & HR: stable & adequate Hydration State: stable & adequate Anesthetic Complications: no major complications apparent
--- NOTE | 2020-11-07 11:54 | Hospitalist Progress Note ---
Date of Service November 07, 2020 Assessment & Plan (1) Ureteral colic: 2/2 obstructive uropathy 2/2 ureteral stone. No evidence of sepsis on admission per previous notes. L ureteral stent placed yesterday and doing well. No infection or renal failure present at this time. DC home with close Urology following for procedure next week. Confirmed with Urology that no further herminia procedural antibiotics were recommended. (2) Calculus of proximal left ureter: Plan as above. (3) Hypertensive urgency: Initially with elevated blood pressure that was related to severe otby872/87, which improved with treatment and medications during her hospital stay. Close PCP follow-up recommended to address this further with close monitoring and ensure she is at goal. (4) DVT prophylaxis: Admission and Anticipated Discharge Date Admission Date: November 06, 2020 Subjective 60 yo F presented with obstructive uropathy with a L ureteral stone. She has no evidence of urinary infection. She received a left ureteral stent on 11/06 and tolerated the procedure well. She presented with some elevated blood pressure and there was some confusion regarding which blood pressure medications she takes at home. Review of Systems Review of Systems: All systems reviewed & are unremarkable except as noted in Subjective Results & Data Results & Data ([facility]) Vital Signs (Past 12 Hours) Vital Signs Temp Pulse Pulse Resp BP BP Pulse Ox 11/07/20 10:51 36.5 C 63 18 167/90 H 95 11/07/20 07:24 36.6 C 66 70 18 167/90 H 96 11/07/20 03:14 36.5 C 73 18 171/84 H 95 Laboratory Results Short CBC 11/07/20 Range/Units 05:30 WBC 6.20 (4.8-10.8) K/uL Hgb 12.0 (12.0-16.0) g/dL Hct 35.0 L (37-47) % Plt Count 131 (130-400) K/uL BMP 11/07/20 05:30 Sodium 143 Potassium 3.7 Chloride 115 H Carbon Dioxide 22 BUN 9 Creatinine 0.64 Glucose 122 H Calcium 8.8 Medications Administered Current Inpatient Medications Acetaminophen (Acetaminophen 325 Mg Tab) 650 mg PO Q4H PRN PRN Reason: Pain or Fever Stop: 12/05/20 20:10 Al Hydrox/Mg Hydrox/Simethicone (Aluminum/Magnesium Susp 30 Ml Udc) 15 ml PO Q4H PRN PRN Reason: Dyspepsia Stop: 12/05/20 20:10 Amitriptyline HCl (Amitriptyline Hcl 25 Mg Tab) 25 mg PO HS PRN PRN Reason: Sleep Stop: 12/05/20 20:10 Amlodipine Besylate (Amlodipine Besylate 5 Mg Tab) 10 mg PO [facility] Stop: 12/06/20 08:59 Last Admin: 11/07/20 08:22 Dose: 10 mg Documented by: Atorvastatin Calcium (Atorvastatin 20 Mg Tab) 20 mg PO [facility] Stop: 12/06/20 08:59 Last Admin: 11/07/20 08:22 Dose: 20 mg Documented by: Fish Oil ([place]-3 (Purified Fish Oil) 1 Gm Cap) 1 gm PO [facility] Stop: 12/06/20 08:59 Last Admin: 11/07/20 08:22 Dose: 1 gm Documented by: Fluticasone Propionate (Fluticasone Propionate Na Spr 16 Gm Btl) 2 sprays [facility] Stop: 12/06/20 08:59 Last Admin: 11/07/20 08:23 Dose: 2 sprays Documented by: Hydralazine HCl (Hydralazine Hcl 20 Mg/Ml Vial) 10 mg IV Q8 PRN PRN Reason: SBP > 160 Stop: 12/05/20 19:24 Last Admin: 11/07/20 04:13 Dose: 10 mg Documented by: Hydromorphone HCl (Hydromorphone Inj 1 Mg/Ml Syringe) 1 mg IV Q3H PRN PRN Reason: Pain Stop: 11/19/20 20:10 Last Admin: 11/06/20 09:03 Dose: 1 mg Documented by: Ceftriaxone Sodium 2,000 mg/ (Dextrose) 50 mls @ 100 mls/hr IV Q24H [facility]; Protocol Stop: 11/10/20 20:59 Last Infusion: 11/06/20 22:42 Dose: Infused Documented by: Acetaminophen (Ofirmev) 1,000 mg in 100 mls @ 400 mls/hr IV Q8H [facility] Stop: 11/09/20 10:29 Last Infusion: 11/07/20 09:59 Dose: Infused Documented by: Promethazine HCl 12.5 mg/ (Sodium Chloride) 50.5 mls @ 202 mls/hr IV Q6H PRN PRN Reason: Nausea And Vomiting Stop: 12/06/20 10:32 Last Infusion: 11/06/20 18:16 Dose: Infused Documented by: Ibuprofen (Ibuprofen 800 Mg Tab) 800 mg PO DAILY PRN PRN Reason: Pain Stop: 12/05/20 20:53 Losartan Potassium (Losartan Potassium 50 Mg Tab) 100 mg PO QAM [facility] Stop: 12/06/20 08:59 Last Admin: 11/07/20 08:22 Dose: 100 mg Documented by: Magnesium Hydroxide (Magnesium Hydroxide Susp 30 Ml Udc) 30 ml PO Q12H PRN PRN Reason: Constipation Stop: 12/05/20 20:10 Magnesium Oxide (Magnesium Oxide 400 Mg Tab) 400 mg PO BID [facility] Stop: 12/05/20 20:59 Last Admin: 11/07/20 08:22 Dose: 400 mg Documented by: Ondansetron HCl (Ondansetron Inj 2 Mg/Ml 2 Ml Vial) 4 mg IV Q6H PRN PRN Reason: Nausea Stop: 12/05/20 20:10 Last Admin: 11/06/20 06:35 Dose: 4 mg Documented by: Pantoprazole Sodium (Pantoprazole 40 Mg Tab) 40 mg PO BID [facility]; Protocol Stop: 12/05/20 20:59 Last Admin: 11/07/20 08:22 Dose: 40 mg Documented by: Polyethylene Glycol (Polyethylene (Miralax) 17 Gm Pack) 17 gm PO DAILY PRN PRN Reason: Constipation Stop: 12/05/20 20:10 Potassium Chloride (Potassium Chloride Crtab 20 Meq Tabcr) [facility] [place] Stop: 12/06/20 08:59 Last Admin: 11/07/20 08:22 Dose: 20 meq Documented by: Tizanidine HCl (Tizanidine Hcl 4 Mg Tablet) 4 mg PO TID PRN PRN Reason: headache Stop: 12/05/20 20:10
--- NOTE | 2020-11-07 14:12 | Discharge Summary ---
Date of Service November 07, 2020 Admission HPI Per Admitting Provider 60 yo F presented with renal colic Past medical history significant for hypertension, hx of hypertensive crisis, hyperlipidemia, prediabetes, nephrolithiasis, OA, RA, hx of appendectomy and hysterectomy and oophorectomy. Patient was seen at her PCP clinic on 10/25 with c/o urinary issues x 1 week, including gross hematuria and abdominal cramping. Urinalysis showed blood but otherwise not suggestive of infection per notes. CT abdomen/pelvis with IV and oral contrast 10/25/20 showed 1 cm calculus of left UPJ with mild secondary obstructive changes. hx of prior renal stone with spontaneous passage of stones in the past. Prior stone surgery ~8 years ago. Hx of ESWL, stone fragmented but then obstructed and subsequently required URS-LL with stent. . pt was seen at [facility] on 10/30/20 - - was scheduled for Cystoscopy, left retrograde pyelogram, left ureteroscopy, laser lithotripsy, stone basketing, possible ureteral dilation and left ureteral stent placement. - presented to ER due to sudden onset of severe abdominal pain Admission Exam Per Admitting Provider not available on H&P Principal Diagnosis ureteral obstruction s/p left ureteral stent placement HTN Discharge Exam CONSTITUTIONAL: WNWD, vitals stable, generally well-appearing EYES: normal conjunctivae, no scleral icterus ENT: external ear and nose normal, MMM RESPIRATORY: clear to auscultation bilaterally, no crackles, rales or wheezes, normal respiratory effort CARDIOVASCULAR: regular rate and rhythm, S1 and 2 heard without murmurs, gallops or rubs, no JVD, no peripheral edema GASTROINTESTINAL: soft, nontender, nondistended MUSCULOSKELETAL: strength 5/5 throughout, head is normocephalic and atraumatic, neck supple, normal palpation of chest wall without tenderness SKIN: warm and dry, no rashes NEUROLOGIC: CN 2-12 grossly intact, no sensory deficit, normal cognition, normal speech, no tremor PSYCHIATRIC: alert cooperative and oriented to person, place and time. Discharge Data Allergies Allergy/AdvReac Type Severity Reaction Status Date / Time sulfamethoxazole Allergy Intermediate ITCHING Verified 11/05/20 19:04 trimethoprim Allergy Intermediate ITCHING Verified 11/05/20 19:04 naproxen AdvReac Intermediate NAUSEA AND Verified 11/05/20 19:04 VOMITNNG Consultations 11/05/20 18:43 ED Decision to Admit Stat 11/05/20 20:11 Consult Urology Routine Procedures Performed Operation Date: 11/06/20 08:50 Actual Procedures p Cystoscopy, Left Stent Insertion(Left) - Mario Alberto Murcia MD Ordered Studies 11/05/20 17:28 US renal/blad retro comp Stat 11/06/20 FL retrograde includes kub Routine Hospital Course (1) Ureteral colic: (2) Calculus of proximal left ureter: (3) Hypertensive urgency: The patient is a 60-year-old female who presented to the ER with left flank pain that began just prior to arrival. She was known to have a 1 cm stone from an outpatient CT performed while visiting her primary care provider. A KUB was performed revealing no change in position of the left UPJ stone and documenting the size is 1.6 cm. Due to the severe pain and size of the stone she was admitted to the hospital service and urology was consulted. She was hydrated with IV fluids and given supportive care with antiemetics and alexsandra lgesics. She was continued on Flomax and started on Rocephin. On 11/06 she underwent cystoscopy with left stent insertion by Dr. Clemente Thompson and return to the floor staying an additional day. On postoperative day 1 she was doing well post procedure with an improvement in symptoms. She had remained afebrile and her urine culture was not revealing of bacteria. She was discharged home in stable condition with close primary care follow-up recommended. Of note initial blood pressure was elevated into the 190 systolic secondary to severe pain. However, once this pain was controlled her blood pressure returned to the normal range. She will continue on her home antihypertensives without changes. Total Time Total Time Spent Total Time Spent (In Minutes): 60 Total Time Includes: Examination of the Patient, Discharge Planning, Medication Reconciliation and Communication With Other Providers Discharge Plan Discharge Items Patient Disposition: Home - Self-Care Reason For Visit: RENAL STONE/FLANK PAIN Discharge Diagnosis: ureteral obstruction s/p left ureteral stent placement HTN Condition on Discharge: Good Activity: Resume your previous activity Non-emergency contact: Primary Care Provider and Urologist Call non-emergency contact if: you have any medication questions, your symptoms worsen and your pain is not controlled Follow-up/Referrals: Jluis Doss DO [Primary Care Provider] - (Date & Time 11/12/2020 3:00 PM Provider Jluis Doss DO Department General Internal Medicine [facility] ) Diet: Regular Addtl Attending Provider Instructions: Please take all medications as instructed on discharge list below. Please take Flomax once every night until otherwise instructed by Urology, and utilize pyridium and/or Ditropan as needed for stent pain or bladder spasms. Please followup with Urology as instructed for planned procedure next week. If you have any further issues please contact [facility] at It is recommended that you followup with your primary care physician at the time/date listed above so your blood pressure may be checked and your medications reviewed. Your blood pressure was elevated while you were in the hospital. It was a pleasure taking care of you! Please call if you have any questions or problems. You can reach a [facility] hospitalist on duty at [facility] 24 hours a day by calling [phone]. Take care of yourself. Aileen Ziegler DO [facility] P[facility] Studies at Discharge: No Stand-Alone Forms: My [facility] Medications and DC Order Prescriptions: New phenazopyridine [Pyridium] 200 mg tablet 200 mg PO Q8H PRN (Reason: stent pain/bladder spasms) Qty: 20 RF: 0 tamsulosin [Flomax] 0.4 mg capsule 0.4 mg PO HS Qty: 20 RF: 0 oxybutynin chloride [Ditropan XL] 5 mg tablet extended release 24hr 5 mg PO DAILY PRN (Reason: stent pain/bladder spasms) Qty: 10 RF: 0 Continued tizanidine 4 mg Tablet 4 mg PO TID PRN (Reason: headache) Qty: 20 RF: 0 acetaminophen 325 mg Tablet 650 mg PO Q6H PRN (Reason: pain) Qty: 30 RF: 0 magnesium oxide 400 mg (241.3 mg magnesium) Tablet 400 mg PO BID Qty: 20 RF: 0 leflunomide 20 mg tablet 20 mg PO QAM RF: 0 albuterol sulfate [Proventil HFA] 90 mcg/actuation Hfa Aerosol Inhaler 2 puff INHALATION Q6H PRN (Reason: Cough) RF: 0 losartan 100 mg Tablet 100 mg PO QAM RF: 0 potassium chloride [Klor-Con 10] 10 mEq tablet extended release 20 meq PO QAM RF: 0 omega-3 fatty acids Capsule 1,000 mg PO QAM RF: 0 atorvastatin 20 mg tablet 20 mg PO DAILY RF: 0 amlodipine 10 mg tablet 10 mg PO DAILY RF: 0 pantoprazole 40 mg tablet,delayed release (DR/EC) 40 mg PO BID RF: 0 sucralfate 1 gram tablet 1 g PO BID RF: 0 fluticasone propionate 50 mcg/actuation spray,suspension 2 spray INTRANASAL DAILY RF: 0 No Action ibuprofen 800 mg tablet 800 mg PO Q8H PRN (Reason: pain) Qty: 30 RF: 0 Discharge Orders: Discharge Order (Routine); Ordered 11/07/20 Ordered By: Aileen Dallas/Other Patient Handouts: Having a Ureteral Stent Admission Data Admit Date/Time: 11/06/20 18:40 Attending Provider: Aileen Ziegler Admit Provider: Candie Anderson Primary Care Provider: Jluis Doss Other Providers: Candie Anderson ; Mario Alberto Murcia ; Ethan Lewis Other Interventions: Discharge Summary Assessment (RN) Last Done: 11/07/20 14:46
== END 2020-11-07 16:02 | disposition home or self-care (01) | DRG 661 ==
LOC: ED 16:26 → 2W 16:26 → SUATTDRO 18:45 → 2W 19:44 → SUATTDRO 11-06 18:40

== ENCOUNTER 2020-11-09 21:29 | Inpatient (IN) ==
[2020-11-09] MEDS ORDERED: SODIUM CHLORIDE 0.9% 500 ML IV STA (21:42)
[2020-11-09] MEDS ORDERED: MoRPHine SULFATE 4 MG/ML 1 ML CARP\\VIAL IV STA (21:42)
[2020-11-09] MEDS ORDERED: ONDANSETRON INJ 2 MG/ML 2 ML VIAL IV STA (21:42)
[2020-11-09] MEDS ORDERED: KETOROLAC TROMETHAMINE 15 MG/ML VIAL IV STA (21:42)
[2020-11-09 21:58] LABS: Hemoglobin 13.5 g/dL (12.0-16.0); Mean Corpuscular Hemoglobin 28.5 pg (25-34); Mean Corpuscular Hgb Conc 34.6 g/dL (32-36); Mean Corpuscular Volume 82.5 fL (80-100); Mean Platelet Volume 9.6 fL (7.4-10.4); Platelet Count 165 K/uL (130-400); RDW Standard Deviation 39.2 fL (36.4-46.3); Red Blood Count 4.73 M/uL (4.2-5.4); White Blood Count 8.61 K/uL (4.8-10.8)
[2020-11-09 22:18] LABS: BUN Creatinine Ratio 21.3 (10-20); Calcium 9.7 mg/dl (8.5-10.1); Creatinine Clr Calc Pharmacy 63.2 ml/min; Est GFR (African American) 71.1; Est GFR (Non-African American) 61.3; Potassium 3.5 mmol/L (3.5-5.1)
[2020-11-09 22:21] LABS: Appearance Urine Cloudy (Clear); Bilirubin Urine Negative (Negative); Blood Urine 2+ (Negative); Color Urine Red; Glucose Urine UA Negative (Negative); Ketones Urine Trace (Negative); Leukocyte Esterase Urine Trace (Negative); Nitrite Urine Negative (Negative); Protein Urine 3+ (Negative); Urobilinogen Urine Negative (Negative)
[2020-11-09 22:23] LABS: RBC Urine >30 /hpf (0-4)
[2020-11-09 22:24] LABS: Bacteria Urine 1+ (Negative); Epithelial Cell Urine 0-5 /lpf (0-5)
[2020-11-09] MEDS ORDERED: cefTRIAXone SODIUM 2,000 MG/70 ML BAG IV STA (22:55)
[2020-11-09 23:37] LABS: Magnesium 1.9 mg/dl (1.8-2.4)
--- NOTE | 2020-11-09 23:55 | History & Physical Report ---
Date of Service November 09, 2020 Assessment & Plan (1) Asymptomatic hypertensive urgency: Secondary to left ureter stent pain hx rheumatoid arthritis as per records hx prediabetes, hemoglobin A1c of 5.19 October 2020 past tobacco abuse OBS Medical telemetry Analgesia Facilitate home BP meds Urology consult Re: Left ureter stent pain Patient expressed desire to have the stent removed. N.p.o. after midnight until patient seen by Urology. DVT prophylaxis per Lovenox subcu Full code Text document was generated using Captimo voice recognition software. It may contain grammatical or spelling errors. Kindly contact undersigned for clarification of any documentation item in [employer] ion. History of Present Illness Chief Complaint: Left flank pain Primary Care Provider: Jluis Doss DO History obtained from patient and records. Medical history significant for rheumatoid arthritis as per records, hypertensio n, hyperlipidemia, fatty liver as per records, urolithiasis, GERD, prediabetes, past tobacco abuse. Recent November 05-2020 for ureteral colic left. Patient found to have 1.6 mm stone left UPJ causing obstruction. Patient underwent cystoscopy and subsequent left stent placement. Patient discharged on Flomax and Pyridium Rx. Urology follow-up planned for next week for definitive stone treatment. Yesterday patient noted achy left flank pain symptoms which subsequently became intolerable. Some hematuria, no fever, no chills. Some nausea, no emesis. No headache, no chest pain, no S OB. [facility]. Patient demanding to have stent removed by urologist. MEDICAL HISTORY: As above. SURGERIES: She had cholecystectomy, appendectomy, hysterectomy, tube removal, urologic procedures. FAMILY HISTORY: Heart disease, stroke, liver cancer, diabetes. PERSONAL AND SOCIAL HISTORY: Past tobacco use. No chronic intake of alcoholic beverages. 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 Allergies Allergy/AdvReac Type Severity Reaction Status Date / Time sulfamethoxazole Allergy Intermediate ITCHING Verified 11/05/20 19:04 trimethoprim Allergy Intermediate ITCHING Verified 11/05/20 19:04 naproxen AdvReac Intermediate NAUSEA AND Verified 11/05/20 19:04 [id number] Home Medications Medication Instructions Recorded Confirmed Type albuterol sulfate [Proventil HFA] 2 puff INHALATION Q6H PRN 01/24/20 11/09/20 History losartan 100 mg PO QAM 01/24/20 11/09/20 History acetaminophen 650 mg PO Q6H PRN #30 tab 03/16/20 11/09/20 Rx magnesium oxide 400 mg PO BID #20 tab 03/16/20 11/09/20 Rx tizanidine 4 mg PO TID PRN #20 tab 03/16/20 11/09/20 Rx leflunomide 20 mg PO QAM 07/20/20 11/09/20 History ibuprofen 800 mg PO DAILY PRN 11/04/20 11/09/20 History omega-3 fatty acids 1,000 mg PO QAM 11/04/20 11/09/20 History potassium chloride [Klor-Con 10] 20 meq PO QAM 11/04/20 11/09/20 History amlodipine 10 mg PO DAILY 11/05/20 11/09/20 History atorvastatin 20 mg PO DAILY 11/05/20 11/09/20 History fluticasone propionate 2 spray INTRANASAL DAILY 11/05/20 11/09/20 History pantoprazole 40 mg PO BID 11/05/20 11/09/20 History sucralfate 1 g PO BID 11/05/20 11/09/20 History oxybutynin chloride [Ditropan XL] 5 mg PO DAILY PRN #10 tab 11/07/20 11/09/20 Rx phenazopyridine [Pyridium] 200 mg PO Q8H PRN #20 tab 11/07/20 11/09/20 Rx tamsulosin [Flomax] 0.4 mg PO HS #20 cap 11/07/20 11/09/20 Rx Past Med/Surg History Medical History Chronic cough inhaler for this > rare use > no asthma dx GERD (gastroesophageal reflux disease) High blood pressure Hyperlipidemia IBS (irritable bowel syndrome) Insomnia Kidney stones Migraine Osteoarthritis Rheumatoid arthritis Surgical History H/O endoscopic retrograde cholangiopancreatography History of appendectomy History of cholecystectomy History of colonoscopy History of cystoscopy History of dilatation and curettage History of esophagogastroduodenoscopy (EGD) History of hysterectomy History of lithotripsy History of tooth extraction Social History Smoking Status: Former smoker Second Hand Exposure: No; Hx Alcohol Use: Yes Hx Substance Use: No Preferred Language: Korean Communication Ability: Effective Operations Management Professionals Required: No Beliefs That Will Affect Care: None marital status: Current Living Situation: Spouse Other Information That Helps Us Care for You: No Feels Safe at Home: Yes Safety Concerns: Feels Safe At This Time Assistive Devices: Glasses Review of Systems Review of Systems: As per HPI, all 10 systems reviewed, all other ROS negative Physical Exam Physical Exam: GENERAL: Slightly uncomfortable, pleasant, no respiratory distress SKIN: Normal color, warm HEENT: [place] palpebral conjunctivae, no ptosis, dry buccal mucosa NECK : Supple, no tenderness CHEST : CTA, no tenderness HEART : RRR, no obvious murmurs ABDOMEN: Some distention, nontender BACK : Left flank tenderness EXTREMITIES : LE swelling, no LE tenderness, no other conspicuous deformities noted NEUROLOGIC : Coherent, no facial asymmetry, no other gross focality Results & Data Results & Data ([facility]) Vital Signs (Past 12 Hours) Vital Signs Temp Pulse Pulse Resp BP BP Pulse Ox 11/09/20 23:22 76 20 170/99 H 95 11/09/20 22:40 76 20 167/79 H 97 11/09/20 22:08 81 20 176/94 H 94 11/09/20 21:33 36.4 C L 105 H 20 198/117 H 96 Laboratory Results Laboratory Results WBC 8.61 K/uL (4.8-10.8) 11/09/20 21:00 RBC 4.73 M/uL (4.2-5.4) 11/09/20 21:00 Hgb 13.5 g/dL (12.0-16.0) 11/09/20 21:00 Hct 39.0 % (37-47) 11/09/20 21:00 MCV 82.5 fL (80-100) 11/09/20 21:00 MCH 28.5 pg (25-34) 11/09/20 21:00 MCHC 34.6 g/dL (32-36) 11/09/20 21:00 RDW Std Deviation 39.2 fL (36.4-46.3) 11/09/20 21:00 RDW Coeff of Rad 13.0 % (11.5-14.5) 11/09/20 21:00 Plt Count 165 K/uL (130-400) 11/09/20 21:00 MPV 9.6 fL (7.4-10.4) 11/09/20 21:00 Sodium 142 mmol/L (136-145) 11/09/20 21:00 Potassium 3.5 mmol/L (3.5-5.1) 11/09/20 21:00 Chloride 110 mmol/L (98-107) H 11/09/20 21:00 Carbon Dioxide 24 mmol/L (21-32) 11/09/20 21:00 Anion Gap 7.0 (3-11) 11/09/20 21:00 BUN 22 mg/dl (7-18) H 11/09/20 21:00 Creatinine 1.01 mg/dl (0.6-1.2) 11/09/20 21:00 Est Cr Clr Drug Dosing 63.2 ml/min 11/09/20 21:00 Est GFR ( Amer) 71.1 11/09/20 21:00 Est GFR (Non-Af Amer) 61.3 11/09/20 21:00 BUN/Creatinine Ratio 21.3 (10-20) H 11/09/20 21:00 Glucose 144 mg/dl (70-99) H 11/09/20 21:00 Calcium 9.7 mg/dl (8.5-10.1) 11/09/20 21:00 Magnesium 1.9 mg/dl (1.8-2.4) 11/09/20 21:00 Urine Color Red 11/09/20 21:50 Urine Appearance Cloudy (Clear) A 11/09/20 21:50 Urine pH 7.0 (4.5-7.5) 11/09/20 21:50 Ur Specific [place] 1.020 (1.000-1.030) 11/09/20 21:50 Urine Protein 3+ (Negative) H 11/09/20 21:50 Urine Glucose (UA) Negative (Negative) 11/09/20 21:50 Urine Ketones Trace (Negative) H 11/09/20 21:50 Urine Blood 2+ (Negative) H 11/09/20 21:50 Urine Nitrite Negative (Negative) 11/09/20 21:50 Urine Bilirubin Negative (Negative) 11/09/20 21:50 Urine Urobilinogen Negative (Negative) 11/09/20 21:50 Ur Leukocyte Esterase Trace (Negative) H 11/09/20 21:50 Urine RBC >30 /hpf (0-4) H 11/09/20 21:50 Urine WBC 10-30 /hpf (0-5) H 11/09/20 21:50 Ur Epithelial Cells 0-5 /lpf (0-5) 11/09/20 21:50 Urine Bacteria 1+ (Negative) H 11/09/20 21:50 COVID-19 Eval Order CovFluRsv at [facility] 11/09/20 23:38 Diagnostic Findings Chest x-ray as per my interpretation elevated right hemidiaphragm Renal ultrasound initial read: Kidneys are normal size, contour and position without evidence of shadowing calculus, hydronephrosis or perinephric fluid. No dilated ureter is evident. Bladder has normal appearance.
[2020-11-09] MEDS ORDERED: LOSARTAN POTASSIUM 50 MG TAB PO STA (23:56)
[2020-11-10] MEDS ORDERED: PROMETHAZINE HCL 12.5 MG in SODIUM CHLORIDE 0.9% 50 ML IV PRN (00:05)
[2020-11-10 00:29] LABS: Influenza A virus by PCR Negative (Neg); Influenza B virus by PCR Negative (Neg); RSV by PCR Negative (Neg); SARS CoV2 RNA(COVID-19) InHosp NEGATIVE (Negative)
--- NOTE | 2020-11-10 00:45 | Emergency Department Note ---
History of Present Illness General Chief complaint: Kidney Stone Stated complaint: KIDNEY STONE Time Seen by Provider: 11/09/20 21:39 History of Present Illness Maximum Pain Intensity: 2 This 60-year-old presents to the ER complaining of worsening flank pain with known stone who had a stent placed the other day Location: Flank Quality: Throbbing Severity: Severe Duration: Past few days Timing: Started few days ago Context: Pain got worse and patient came in Modifying factors: better with nothing; worse with activity Patient complains of urinary symptoms. Patient denies chest pain, dyspnea, fevers, flulike illness. Home Medications Medication Instructions Recorded Confirmed Type albuterol sulfate [Proventil HFA] 2 puff INHALATION Q6H PRN 01/24/20 11/09/20 History losartan 100 mg PO QAM 01/24/20 11/09/20 History acetaminophen 650 mg PO Q6H PRN #30 tab 03/16/20 11/09/20 Rx magnesium oxide 400 mg PO BID #20 tab 03/16/20 11/09/20 Rx tizanidine 4 mg PO TID PRN #20 tab 03/16/20 11/09/20 Rx leflunomide 20 mg PO QAM 07/20/20 11/09/20 History ibuprofen 800 mg PO DAILY PRN 11/04/20 11/09/20 History omega-3 fatty acids 1,000 mg PO QAM 11/04/20 11/09/20 History potassium chloride [Klor-Con 10] 20 meq PO QAM 11/04/20 11/09/20 History amlodipine 10 mg PO DAILY 11/05/20 11/09/20 History atorvastatin 20 mg PO DAILY 11/05/20 11/09/20 History fluticasone propionate 2 spray INTRANASAL DAILY 11/05/20 11/09/20 History pantoprazole 40 mg PO BID 11/05/20 11/09/20 History sucralfate 1 g PO BID 11/05/20 11/09/20 History oxybutynin chloride [Ditropan XL] 5 mg PO DAILY PRN #10 tab 11/07/20 11/09/20 Rx phenazopyridine [Pyridium] 200 mg PO Q8H PRN #20 tab 11/07/20 11/09/20 Rx tamsulosin [Flomax] 0.4 mg PO HS #20 cap 11/07/20 11/09/20 Rx Allergies Allergy/AdvReac Type Severity Reaction Status Date / Time sulfamethoxazole Allergy Intermediate ITCHING Verified 11/05/20 19:04 trimethoprim Allergy Intermediate ITCHING Verified 11/05/20 19:04 naproxen AdvReac Intermediate NAUSEA AND Verified 11/05/20 19:04 VOMITNNG Past Med/Surg History Medical History Chronic cough inhaler for this > rare use > no asthma dx GERD (gastroesophageal reflux disease) High blood pressure Hyperlipidemia IBS (irritable bowel syndrome) Insomnia Kidney stones Migraine Osteoarthritis Rheumatoid arthritis Surgical History H/O endoscopic retrograde cholangiopancreatography History of appendectomy History of cholecystectomy History of colonoscopy History of cystoscopy History of dilatation and curettage History of esophagogastroduodenoscopy (EGD) History of hysterectomy History of lithotripsy History of tooth extraction Social History Smoking Status: Never smoker Second Hand Exposure: No; Hx Alcohol Use: No Hx Substance Use: No Preferred Language: Icelandic Communication Ability: Effective Per Diem Interpreter Required: No Beliefs That Will Affect Care: None marital status: Current Living Situation: Spouse Feels Safe at Home: Yes Assistive Devices: None Review of Systems A total of 10 systems reviewed and were otherwise negative Physical Exam Vital Signs Vital Signs - 24 hr 11/09/20 21:33 11/09/20 22:08 11/09/20 22:40 Temperature 36.4 C L Temperature Source Temporal Artery Scan Pulse Rate 105 H Pulse Rate [Left Finger] 81 76 Respiratory Rate 20 20 20 Respiratory Effort / Characteristics Non-Labored Spontaneous Respiratory Depth Normal Respiratory Pattern Regular Blood Pressure 198/117 H Blood Pressure [Left Arm] 176/94 H 167/79 H Blood Pressure Mean 144 Blood Pressure Mean [Left Arm] 121 108 Pulse Oximetry 96 94 97 Oxygen Delivery Method Room Air Room Air Room Air Sepsis Recent Fever Within 48 Hours No Sepsis New/Unexplained Change in Mental Status N/A Sepsis Action Taken by Nursing No Action Required 11/09/20 23:22 11/10/20 00:31 Temperature Temperature Source Pulse Rate Pulse Rate [Left Finger] 76 76 Respiratory Rate 20 18 Respiratory Effort / Characteristics Respiratory Depth Respiratory Pattern Blood Pressure Blood Pressure [Left Arm] 170/99 H 166/90 H Blood Pressure Mean Blood Pressure Mean [Left Arm] 122 115 Pulse Oximetry 95 96 Oxygen Delivery Method Room Air Room Air Sepsis Recent Fever Within 48 Hours Sepsis New/Unexplained Change in Mental Status Sepsis Action Taken by Nursing VITALS: Vitals are noted on the nurse's note and reviewed by myself. Vital signs hypertensive. GENERAL: White female who appears in pain, in no acute distress, nondiaphoretic, well-developed well-nourished. SKIN: Capillary reflex less than 2 seconds. HEENT: Normocephalic. PERRLA. EOMI. Nares patent. Mucous membranes moist. Neck is supple without nuchal rigidity. HEART: Regular rate and rhythm . LUNGS: Clear to auscultation bilaterally without wheezes, rales or rhonchi. No retractions or accessory muscle use. ABDOMEN: Positive bowel sounds x 4. Normal tympanic percussion. Soft, nontender, without masses or organomegaly. Rascon sign negative. No guarding or rebound tenderness. left CVA tenderness MUSCULOSKELETAL: No gross musculoskeletal defects. NEURO: Patient was alert and oriented to person place and time. No focal neurological deficits. Course Administered Medications Discontinued Medications Sodium Chloride (Nss) 500 mls @ 999 mls/hr IV .Q31M STA Stop: 11/09/20 22:12 Last Infusion: 11/09/20 22:31 Dose: 0 mls/hr Documented by: [id number] Admin: 11/09/20 21:56 Dose: 999 mls/hr Documented by: [id number] Ceftriaxone Sodium (Rocephin) 2,000 mg in 70 mls @ 140 mls/hr IV NOW STA Stop: 11/09/20 23:24 Last Infusion: 11/09/20 23:55 Dose: 0 mls/hr Documented by: [id number] Admin: 11/09/20 23:20 Dose: 140 mls/hr Documented by: [id number] Ketorolac Tromethamine (Ketorolac Tromethamine 15 Mg/Ml Vial) 10 mg IV NOW STA Stop: 11/09/20 21:43 Last Admin: 11/09/20 21:56 Dose: 10 mg Documented by: [id number] Losartan Potassium (Losartan Potassium 50 Mg Tab) 100 mg PO NOW STA Stop: 11/09/20 23:57 Last Admin: 11/10/20 00:30 Dose: 100 mg Documented by: [id number] Morphine Sulfate (Morphine Sulfate 4 Mg/Ml 1 Ml Carp\Vial) 4 mg IV NOW STA Stop: 11/09/20 21:43 Last Admin: 11/09/20 21:56 Dose: 4 mg Documented by: [id number] Ondansetron HCl (Ondansetron Inj 2 Mg/Ml 2 Ml Vial) 4 mg IV NOW STA Stop: 11/09/20 21:43 Last Admin: 11/09/20 21:56 Dose: 4 mg Documented by: [id number] Medical Decision Making Medical Records Attestation: I reviewed the patient's medical records. Home Medications Current Medication List: was personally reviewed by me Laboratory Data Attestation: I reviewed the patient's lab results. Result diagrams: 11/09/20 21:00 11/09/20 21:00 Lab Results 11/09/20 11/09/20 11/09/20 Range/Units 21:00 21:00 21:50 WBC 8.61 (4.8-10.8) K/uL RBC 4.73 (4.2-5.4) M/uL Hgb 13.5 (12.0-16.0) g/dL Hct 39.0 (37-47) % MCV 82.5 (80-100) fL MCH 28.5 (25-34) pg MCHC 34.6 (32-36) g/dL RDW Std Deviation 39.2 (36.4-46.3) fL RDW Coeff of Rad 13.0 (11.5-14.5) % Plt Count 165 (130-400) K/uL MPV 9.6 (7.4-10.4) fL Sodium 142 (136-145) mmol/L Potassium 3.5 (3.5-5.1) mmol/L Chloride 110 H (98-107) mmol/L Carbon Dioxide 24 (21-32) mmol/L Anion Gap 7.0 (3-11) BUN 22 H (7-18) mg/dl Creatinine 1.01 (0.6-1.2) mg/dl Est Cr Clr Drug Dosing 63.2 ml/min Est GFR ( Amer) 71.1 Est GFR (Non-Af Amer) 61.3 BUN/Creatinine Ratio 21.3 H (10-20) Glucose 144 H (70-99) mg/dl Calcium 9.7 (8.5-10.1) mg/dl Magnesium 1.9 (1.8-2.4) mg/dl Urine Color Red Urine Appearance Cloudy A (Clear) Urine pH 7.0 (4.5-7.5) Ur Specific [place] 1.020 (1.000-1.030) Urine Protein 3+ H (Negative) Urine Glucose (UA) Negative (Negative) Urine Ketones Trace H (Negative) Urine Blood 2+ H (Negative) Urine Nitrite Negative (Negative) Urine Bilirubin Negative (Negative) Urine Urobilinogen Negative (Negative) Ur Leukocyte Esterase Trace H (Negative) Urine RBC >30 H (0-4) /hpf Urine WBC 10-30 H (0-5) /hpf Ur Epithelial Cells 0-5 (0-5) /lpf Urine Bacteria 1+ H (Negative) COVID-19 Eval Order SARS-CoV-2 (PCR) (Negative) Influenza Type A (PCR) (Neg) Influenza Type B (PCR) (Neg) RSV (RT-PCR) (Neg) 11/09/20 11/09/20 Range/Units 23:38 23:38 WBC (4.8-10.8) K/uL RBC (4.2-5.4) M/uL Hgb (12.0-16.0) g/dL Hct (37-47) % MCV (80-100) fL MCH (25-34) pg MCHC (32-36) g/dL RDW Std Deviation (36.4-46.3) fL RDW Coeff of Rad (11.5-14.5) % Plt Count (130-400) K/uL MPV (7.4-10.4) fL Sodium (136-145) mmol/L Potassium (3.5-5.1) mmol/L Chloride (98-107) mmol/L Carbon Dioxide (21-32) mmol/L Anion Gap (3-11) BUN (7-18) mg/dl Creatinine (0.6-1.2) mg/dl Est Cr Clr Drug Dosing ml/min Est GFR ( Amer) Est GFR (Non-Af Amer) BUN/Creatinine Ratio (10-20) Glucose (70-99) mg/dl Calcium (8.5-10.1) mg/dl Magnesium (1.8-2.4) mg/dl Urine Color Urine Appearance (Clear) Urine pH (4.5-7.5) Ur Specific [place] (1.000-1.030) Urine Protein (Negative) Urine Glucose (UA) (Negative) Urine Ketones (Negative) Urine Blood (Negative) Urine Nitrite (Negative) Urine Bilirubin (Negative) Urine Urobilinogen (Negative) Ur Leukocyte Esterase (Negative) Urine RBC (0-4) /hpf Urine WBC (0-5) /hpf Ur Epithelial Cells (0-5) /lpf Urine Bacteria (Negative) COVID-19 Eval Order CovFluRsv at [facility] SARS-CoV-2 (PCR) NEGATIVE (Negative) Influenza Type A (PCR) Negative (Neg) Influenza Type B (PCR) Negative (Neg) RSV (RT-PCR) Negative (Neg) Imaging Data Attestation: I personally reviewed and interpreted this imaging study as follows: MDM Narrative Prior records/ancillary studies reviewed. Triage Nursing notes reviewed. Additional history obtained from the family. The patient's history was concerning for flank pain. Differential diagnosis: Etiologies such as renal colic, appendicitis, diverticulitis, mesenteric ischemia, aortic pathology, infections, inflammatory bowel disease, PUD, biliary pathology, UTI, as well as others were entertained. Physical examination findings: As above. ER treatment provided: Morphine, Zofran, Toradol, IV fluids, Rocephin On reassessment the patient felt better. Diagnostic interpretation by me: The labs revealed no leukocytosis. Urinalysis revealed concerns for possible UTI. No prior urine culture Imaging studies: US RENAL: The kidneys are of normal size, contour and position without evidence of shadowing calculus, hydronephrosis or perinephric fluid. No dilated ureter is evident. The bladder has a normal appearance. Radiologist: Marko Yanez MD [facility], [phone] CT Scan Report Patient: STACIE DUMAS AAdmit Date: 10/25/20MR#: [id number]: [facility] Zip: [id number]: [id number]: CTSex: FRoom/Bed:Att Phy: Christian Santanaagnosis: LLQ ABD PAIN,R/O DIVERTICULITIS *HOLD/CALL REPORT*Mahsa Phy: RomarioJluis, DOService Date: 10/25/20Fam Phy:Interpreting Phy: Alec Boland MDAdmit Phy: Ordering Phy: Christian Santana PA-C cc: ~ CT abd pelvis oral and IV con CLINICAL HISTORY: Left lower quadrant abdominal pain COMPARISON STUDY: 11/05/2017 TECHNIQUE: Patient was scanned following administration of dilute oral contrast, and in a dynamic helical fashion during intravenous administration of 93 cc of Optiray 320 A dose lowering technique was utilized adhering to the principles of ALARA. CT DOSE: 691.90 mGycm FINDINGS: Lower chest: There are bibasilar atelectatic changes Liver: There is a 5 mm hypodensity within the left hepatic lobe. This is too small to characterize but likely represents a cyst. This remains unchanged from the preceding study Gallbladder: Surgically absent Spleen: The spleen is enlarged measuring 17.5 cm in length. Pancreas: Unremarkable. Adrenal glands: Unremarkable. Kidneys: There is a 1 cm left UPJ calculus with mild secondary obstructive changes. Bowel: There are no transition zones indicate bowel obstruction. There is no evidence of acute diverticulitis. By history the patient is status post a prior appendectomy. Peritoneum: There is no intraperitoneal free air or abdominal ascites. Vasculature: The abdominal aorta is normal in course and caliber. Adenopathy: None. Pelvic viscera: The uterus is surgically absent. Skeletal structures: There is a subcentimeter bone island within the L4 spinous process IMPRESSION: 1. 1 cm left UPJ calculus with mild secondary obstructive changes 2. No evidence of bowel obstruction. No evidence of free air 2. No evidence of acute diverticulitis 4. Splenomegaly (17.5 cm) ACT 112: Negative or not required by law. Electronically signed by: Alec Boland M.D. 10/25/2020 12:38 PM Consultation: A consultation was placed with Dr. Angel jenkins. The case was discussed and diagnostics were reviewed. The patient was evaluated in the ER for further treatment. It appears that the patient has isolated renal colic from a left sided stone with possible UTI. Patient was started on antibiotics. No prior urine culture. She was in severe amount of pain. She requested admission. Medicine was consulted. She will be evaluated for admission. By the evaluation outlined above emergent etiologies such as appendicitis, diverticulitis, mesenteric ischemia, aortic pathology, inflammatory bowel disease, PUD, biliary pathology, as well as others were deemed relatively unlikely. The pt informed about the findings as listed above. All questions were answered and pleased with the treatment. The chart was completed utilizing [employer] voice recognition software. Grammatical errors, random word insertions, pronoun errors, and incomplete sentences are an occassional consequence of this system due to software limitations, ambient noise, and hardware issues. Any formal questions or concerns about the content, text, or information contained within the body of this dictation should be directly addressed to the physician home care assistant for clarification. Impression & Plan Renal colic on left side, UTI (urinary tract infection) Discharge Plan Visit Data Chief Complaint: Kidney Stone Stated Complaint: KIDNEY STONE ED Provider: Stephen Argueta ED Midlevel Provider: Catherine Pritchard Discharge Problem: Renal colic on left side, UTI (urinary tract infection) Patient Disposition: Admitted As Inpatient Condition: Good Forms Stand Alone Forms: [place] [facility] [employer] Prescriptions Prescriptions: No Action tizanidine 4 mg Tablet 4 mg PO TID PRN (Reason: headache) Qty: 20 RF: 0 acetaminophen 325 mg Tablet 650 mg PO Q6H PRN (Reason: pain) Qty: 30 RF: 0 magnesium oxide 400 mg (241.3 mg magnesium) Tablet 400 mg PO BID Qty: 20 RF: 0 leflunomide 20 mg tablet 20 mg PO QAM RF: 0 albuterol sulfate [Proventil HFA] 90 mcg/actuation Hfa Aerosol Inhaler 2 puff INHALATION Q6H PRN (Reason: Cough) RF: 0 losartan 100 mg Tablet 100 mg PO QAM RF: 0 potassium chloride [Klor-Con 10] 10 mEq tablet extended release 20 meq PO QAM RF: 0 omega-3 fatty acids Capsule 1,000 mg PO QAM RF: 0 ibuprofen 200 mg Capsule 800 mg PO DAILY PRN (Reason: Pain) RF: 0 atorvastatin 20 mg tablet 20 mg PO DAILY RF: 0 amlodipine 10 mg tablet 10 mg PO DAILY RF: 0 pantoprazole 40 mg tablet,delayed release (DR/EC) 40 mg PO BID RF: 0 sucralfate 1 gram tablet 1 g PO BID RF: 0 fluticasone propionate 50 mcg/actuation spray,suspension 2 spray INTRANASAL DAILY RF: 0 phenazopyridine [Pyridium] 200 mg tablet 200 mg PO Q8H PRN (Reason: stent pain/bladder spasms) Qty: 20 RF: 0 tamsulosin [Flomax] 0.4 mg capsule 0.4 mg PO HS Qty: 20 RF: 0 oxybutynin chloride [Ditropan XL] 5 mg tablet extended release 24hr 5 mg PO DAILY PRN (Reason: stent pain/bladder spasms) Qty: 10 RF: 0 Referrals Referrals: Jluis Doss DO [Primary Care Provider] -
[2020-11-10] MEDS ORDERED: lisinopril 5 MG TAB PO ONE (00:59)
[2020-11-10] MEDS ORDERED: ACETAMINOPHEN 325 MG TAB PO PRN ×2 (01:34→02:26)
[2020-11-10] MEDS ORDERED: LORazepam 0.5 MG/1 ML VIAL IV PRN (01:34)
[2020-11-10] MEDS: oxyCODONE HCL IR 5 MG TAB (IMMEDIATE RELEASE) PO PRN ×2 (01:57→09:56)
[2020-11-10] MEDS: amLODIPine BESYLATE 5 MG TAB PO SCH (02:51)
[2020-11-10] MEDS: POTASSIUM CHLORIDE 40 MEQ in SODIUM CHLORIDE 0.45 % 1,000 ML IV SCH (02:51)
[2020-11-10 07:01] LABS: Basophils # (auto) 0.01 K/uL (0-0.2); Basophils % (auto) 0.2 %; Eosinophils # (auto) 0.15 K/uL (0-0.5); Eosinophils % (auto) 2.5 %; Hematocrit (blood only) 34.5 % (37-47); Hemoglobin 11.6 g/dL (12.0-16.0); Immature Granulocytes # (auto) 0.02 K/uL (0.00-0.02); Immature Granulocytes % (auto) 0.3 %; Lymphocytes # (auto) 1.59 K/uL (1.2-3.4); Lymphocytes % (auto) 26.7 %; Mean Corpuscular Hemoglobin 28.5 pg (25-34); Mean Corpuscular Hgb Conc 33.6 g/dL (32-36); Mean Corpuscular Volume 84.8 fL (80-100); Mean Platelet Volume 9.5 fL (7.4-10.4); Monocytes # (auto) 0.53 K/uL (0.11-0.59); Monocytes % (auto) 8.9 %; Neutrophils # (auto) 3.66 K/uL (1.4-6.5); Neutrophils % (auto) 61.4 %; Platelet Count 124 K/uL (130-400); RDW Coefficient of Variation 13.3 % (11.5-14.5); RDW Standard Deviation 40.8 fL (36.4-46.3); Red Blood Count 4.07 M/uL (4.2-5.4); White Blood Count 5.96 K/uL (4.8-10.8)
[2020-11-10 07:33] LABS: BUN Creatinine Ratio 24.5 (10-20); Calcium 8.8 mg/dl (8.5-10.1); Creatinine Clr Calc Pharmacy 89.5 ml/min; Est GFR (African American) 108.8; Est GFR (Non-African American) 93.9; Potassium 3.7 mmol/L (3.5-5.1)
[2020-11-10] MEDS: MoRPHine SULFATE 4 MG/ML 1 ML CARP\\VIAL IV PRN ×2 (08:06→23:53)
[2020-11-10] MEDS ORDERED: amLODIPine BESYLATE 5 MG TAB PO SCH (09:00)
[2020-11-10] MEDS ORDERED: ENOXAPARIN INJ 40 MG/0.4 ML SYR SQ SCH (09:00)
--- NOTE | 2020-11-10 09:00 | Urology Consultation ---
Date of Consultation November 10, 2020 Assessment & Plan (1) Renal colic on left side: Left flank pain, stent pain - despite the pain, the stent appears to be functioning appropriately and positioned appropriately - cultures pending, but lack of WBC implies that this may be more inflammatory t baker infectious in etiology - work on pain control, BP control - no planned emergent interventions from urology -I have discussed that I am very uncertain our schedule will accommodate moving her up from her planned/scheduled surgery on , however I will make her n.p.o. after midnight on the off chance that there is an available slot tomorrow but I have explained to her that I do not anticipate that will be the case History of Present Illness Attending Physician: Aileen Ziegler, History of Present Illness 60y/o female s/p recent admission for left ureteral calculus with subsequent L ureteral stent placement ultimately discharged home in stable condition now returns with hypertension and flan pain consistent with stent discomfort renal us reviewed and discussed - hydro appears largely resolved, there is some likely inflammation of the left danilo trigone of the bladder as well as the left kidney, but otherwise appears appropriate given recent stent placement UA with some bacteria - cultures pending no leukocytosis Cr 0.71 She is adamant that she can't go home and she cannot wait until her planned surgery on and needs intervention sooner because the discomfort is too severe Allergies Allergy/AdvReac Type Severity Reaction Status Date / Time sulfamethoxazole Allergy Intermediate ITCHING Verified 11/05/20 19:04 trimethoprim Allergy Intermediate ITCHING Verified 11/05/20 19:04 naproxen AdvReac Intermediate NAUSEA AND Verified 11/05/20 19:04 VOMITNNG Home Medications Medication Instructions Recorded Confirmed Type albuterol sulfate [Proventil HFA] 2 puff INHALATION Q6H PRN 01/24/20 11/09/20 History losartan 100 mg PO QAM 01/24/20 11/09/20 History acetaminophen 650 mg PO Q6H PRN #30 tab 03/16/20 11/09/20 Rx magnesium oxide 400 mg PO BID #20 tab 03/16/20 11/09/20 Rx tizanidine 4 mg PO TID PRN #20 tab 03/16/20 11/09/20 Rx leflunomide 20 mg PO QAM 07/20/20 11/09/20 History ibuprofen 800 mg PO DAILY PRN 11/04/20 11/09/20 History omega-3 fatty acids 1,000 mg PO QAM 11/04/20 11/09/20 History potassium chloride [Klor-Con 10] 20 meq PO QAM 11/04/20 11/09/20 History amlodipine 10 mg PO DAILY 11/05/20 11/09/20 History atorvastatin 20 mg PO DAILY 11/05/20 11/09/20 History fluticasone propionate 2 spray INTRANASAL DAILY 11/05/20 11/09/20 History pantoprazole 40 mg PO BID 11/05/20 11/09/20 History sucralfate 1 g PO BID 11/05/20 11/09/20 History oxybutynin chloride [Ditropan XL] 5 mg PO DAILY PRN #10 tab 11/07/20 11/09/20 Rx phenazopyridine [Pyridium] 200 mg PO Q8H PRN #20 tab 11/07/20 11/09/20 Rx tamsulosin [Flomax] 0.4 mg PO HS #20 cap 11/07/20 11/09/20 Rx Patient History Medical History Chronic cough inhaler for this > rare use > no asthma dx GERD (gastroesophageal reflux disease) High blood pressure Hyperlipidemia IBS (irritable bowel syndrome) Insomnia Kidney stones Migraine Osteoarthritis Rheumatoid arthritis Surgical History H/O endoscopic retrograde cholangiopancreatography History of appendectomy History of cholecystectomy History of colonoscopy History of cystoscopy History of dilatation and curettage History of esophagogastroduodenoscopy (EGD) History of hysterectomy History of lithotripsy History of tooth extraction Social History Smoking Status: Former smoker Second Hand Exposure: No; Hx Alcohol Use: Yes Hx Substance Use: No Preferred Language: Frisian Communication Ability: Effective Director Of Operations Home Health Required: No Beliefs That Will Affect Care: None marital status: Current Living Situation: Spouse Other Information That Helps Us Care for You: No Feels Safe at Home: Yes Safety Concerns: Feels Safe At This Time Assistive Devices: Glasses Review of Systems Constitutional: no fever, no chills and no fatigue Eyes: no worsening vision Ear, Nose, Mouth, Throat: no facial pain and no pain with swallowing Respiratory: no cough and no dyspnea Cardiovascular: no chest pain and no palpitations Additional Comments: hypertension Gastrointestinal: + abdominal pain and + nausea; no vomiting Genitourinary: + dysuria and + hematuria; no difficulty urinating and no urinary frequency Musculoskeletal: no back pain Integumentary: no rash and no urticaria Neurologic: no gait abnormality and no unsteadiness Psychiatric: no behavioral changes and no depression Endocrine: no fatigue Physical Exam Constitutional: well developed and well nourished Neck: neck nontender Respiratory: normal respiratory effort; no respiratory distress and does not use accessory muscles Cardiovascular: Rate/Rhythm: regular rate Vessels: radial pulses present Extremities: no edema Gastrointestinal (Abdomen): Inspection/Auscultation: abdomen normal to inspection Percussion/Palpation: abdomen soft; abdomen nontender and no guarding Musculoskeletal: Head/Neck/Chest: normocephalic and head atraumatic Extremities: extremities normal to inspection Skin: no rashes and no lesions Trauma: no evidence of skin trauma Neurologic: awake; not obtunded Speech / Cognition: normal speech Motor/Sensory: no tremor Psychiatric: Orientation: alert and oriented x 3 Lymphatic: no lymphadenopathy Results & Data ([facility]) Vital Signs (Past 12 Hours) Vital Signs Temp Pulse Pulse Resp BP BP Pulse Ox 11/10/20 08:14 36.4 C L 71 20 134/74 94 11/10/20 08:03 36.7 C 82 20 164/82 H 99 11/10/20 07:17 63 11/10/20 04:50 68 11/10/20 01:40 36.5 C 68 18 172/61 H 96 11/10/20 01:02 66 20 147/80 H 96 11/10/20 00:31 76 18 166/90 H 96 11/09/20 23:22 76 20 170/99 H 95 11/09/20 22:40 76 20 167/79 H 97 11/09/20 22:08 81 20 176/94 H 94 11/09/20 21:33 36.4 C L 105 H 20 198/117 H 96 PG Care Time/CCT Total # of Minutes Spent Total Time Spent with Patient: Total time spent is greater than 50% in coordination of care (as documented) at patient's floor/unit and/or counseling patient: Coding Level of Care Code 34339 Inpt Consult Level 4 Diagnoses Renal colic on left side N23
--- NOTE | 2020-11-10 09:32 | Ultrasound Report ---
RENAL ULTRASOUND HISTORY: Left-sided stone, stent, increase pain COMPARISON: Abdomen and pelvis CT 10/25/2020. Renal ultrasound 11/05/2020. FINDINGS: Right kidney: 10.5 cm. No hydronephrosis. Normal corticomedullary differentiation and cortical thickn ess. Left kidney: 11.4 cm. Mild fullness within the left renal collecting system without saad hydronephro sis. Normal corticomedullary differentiation and cortical thickness. Bladder: No bladder wall thickening. The bilateral ureteral jets were identified. The left ureteral s tent is identified within the bladder. IMPRESSION: 1. Mild fullness within the left renal collecting system without saad hydronephrosis. 2. Normal right kidney. 3. The left ureteral stent is seen within the bladder. ACT 112: Negative or not required by law. Electronically signed by: Gustavo Verdugo M.D. 11/10/2020 9:31 AM
--- NOTE | 2020-11-10 09:54 | XRay Report ---
XR chest 1V portable HISTORY: Resp sx c/w COVID-19 COMPARISON: 03/14/2020. FINDINGS: No pneumothorax. No pleural effusions. The heart remains mildly enlarged. There is diffuse interstitial thickening, unchanged. Patchy left base airspace opacities have progressed. IMPRESSION: Interval progression of the patchy left base airspace opacities. This could represent atelectasis or pneumonia. ACT 112: Negative or not required by law. Electronically signed by: Gustavo Verdugo M.D. 11/10/2020 9:53 AM
--- NOTE | 2020-11-10 10:43 | Hospitalist Progress Note ---
Date of Service November 10, 2020 Assessment & Plan (1) Asymptomatic hypertensive urgency: Secondary to left ureteral colic. Improves when pain improves. Although amlodipine was continued, losartan was held. We will give this now. Continue to treat pain aggressively. (2) Ureteral colic: After left stent placement for ureteral stone last week. Flomax was restarted, continue IV fluids, Pyridium was scheduled, Ditropan was scheduled, belladonna suppository as needed, morphine as needed, Tylenol was scheduled, Toradol as needed, oxycodone as needed heating pad as needed for comfort. Urology with plans for definitive treatment and stent removal in the next 24 to 48 hours. (3) Rheumatoid arthritis: Continue leflunomide per home regimen. (4) DVT prophylaxis: Lovenox, Full code Disposition-pending definitive stone treatment per urology then home when medically stable and asymptomatic. [facility]ated Discharge Date Admission Date: November 09, 2020 Subjective 60-year-old female with recent admission for left ureteral calculus with subsequent left ureteral stent placement ultimately discharged home in stable condition returned with hypertension and left flank pain with intense stent discomfort. She continues to have this same pain today and is very uncomfortable. Ultrasound revealed her hydronephrosis worse largely resolved. The patient is very focused on her left flank pain and does not report other issues outside of that at this time. Review of Systems Review of Systems: All systems reviewed & are unremarkable except as noted in Subjective Physical Exam Physical Exam: CONSTITUTIONAL: WNWD, vitals as above, generally in moderate distress EYES: normal conjunctivae, no scleral icterus ENT: external ear and nose normal, MMM RESPIRATORY: clear to auscultation bilaterally, no crackles, rales or wheezes, normal respiratory effort CARDIOVASCULAR: regular rate and rhythm, S1 and 2 heard without murmurs, gallops or rubs, no JVD, no peripheral edema GASTROINTESTINAL: soft, TTP on left side, +L CVA tenderness, nondistended. MUSCULOSKELETAL: ambulatory, no gross focal deficits. SKIN: warm and dry NEUROLOGIC: CN 2-12 grossly intact, no sensory deficit, normal cognition, normal speech, no tremor PSYCHIATRIC: alert cooperative and oriented to person, place and time. Euthymic mood, makes good eye contact, language grossly intact, recent and remote memory grossly intact. LYMPHATIC: no LAD Results & Data Results & Data ([facility]) Vital Signs (Past 12 Hours) Vital Signs Temp Pulse Pulse Resp BP Pulse Ox 11/10/20 08:14 36.4 C L 71 20 134/74 94 11/10/20 08:03 36.7 C 82 20 164/82 H 99 11/10/20 07:17 63 11/10/20 04:50 68 11/10/20 01:40 36.5 C 68 18 172/61 H 96 11/10/20 01:02 66 20 147/80 H 96 11/10/20 00:31 76 18 166/90 H 96 11/09/20 23:22 76 20 170/99 H 95 Laboratory Results Short CBC 11/09/20 11/10/20 Range/Units 21:00 06:15 WBC 8.61 5.96 (4.8-10.8) K/uL Hgb 13.5 11.6 L (12.0-16.0) g/dL Hct 39.0 34.5 L (37-47) % Plt Count 165 124 L (130-400) K/uL BMP 11/09/20 11/10/20 21:00 06:15 Sodium 142 143 Potassium 3.5 3.7 Chloride 110 H 115 H Carbon Dioxide 24 22 BUN 22 H 18 Creatinine 1.01 0.71 D Glucose 144 H 105 H Calcium 9.7 8.8 Urine 11/09/20 Range/Units 21:50 Urine Color Red Urine Appearance Cloudy A (Clear) Urine pH 7.0 (4.5-7.5) Ur Specific [place] 1.020 (1.000-1.030) Urine Protein 3+ H (Negative) Urine Glucose (UA) Negative (Negative) Medications Administered Current Inpatient Medications Acetaminophen (Acetaminophen 325 Mg Tab) 325 mg PO Q6H PRN PRN Reason: Mild Pain Stop: 12/10/20 02:25 Amlodipine Besylate (Amlodipine Besylate 5 Mg Tab) 10 mg PO DAILY MACY Stop: 12/10/20 02:09 Last Admin: 11/10/20 02:51 Dose: 10 mg Documented by: Enoxaparin Sodium (Enoxaparin Inj 40 Mg/0.4 Ml Syr) 40 mg SQ QAM MACY Stop: 12/10/20 08:59 Last Admin: 11/10/20 09:52 Dose: Not Given Documented by: Promethazine HCl 12.5 mg/ (Sodium Chloride) 50.5 mls @ 202 mls/hr IV Q6H PRN PRN Reason: Nausea And Vomiting Stop: 12/10/20 01:33 Lorazepam (Ativan) 0.5 mg in 1 mls @ 1 mls/min IV Q4H PRN PRN Reason: Anxiety/Agitation Stop: 12/10/20 01:33 Potassium Chloride 40 meq/ (Sodium Chloride) 1,020 mls @ 40 mls/hr IV .Q24H MACY Stop: 12/10/20 02:29 Last Admin: 11/10/20 02:51 Dose: 40 mls/hr Documented by: Morphine Sulfate (Morphine Sulfate 4 Mg/Ml 1 Ml Carp\Vial) 4 mg IV Q4H PRN PRN Reason: Pain Stop: 11/24/20 01:33 Last Admin: 11/10/20 08:06 Dose: 4 mg Documented by: Oxycodone HCl (Oxycodone Hcl Ir 5 Mg Tab (Immediate Release)) 5 - 10 mg PO QID PRN PRN Reason: Pain Stop: 11/24/20 01:33 Last Admin: 11/10/20 09:56 Dose: 10 mg Documented by:
[2020-11-10] MEDS ORDERED: MoRPHine SULFATE 4 MG/ML 1 ML CARP\\VIAL IV STA (15:08)
[2020-11-10] MEDS ORDERED: BELLADONNA/OPIUM SUPP 60 MG SUPP PR PRN (15:08)
[2020-11-10] MEDS: ACETAMINOPHEN 500 MG TAB PO SCH ×2 (15:52→21:35)
[2020-11-10] MEDS: PHENAZOPYRIDINE HCL 200 MG TAB PO SCH (19:19)
[2020-11-10] MEDS: KETOROLAC TROMETHAMINE 15 MG/ML VIAL IV PRN (19:51)
[2020-11-10] MEDS: ENOXAPARIN INJ 40 MG/0.4 ML SYR SQ SCH (19:51)
[2020-11-10] MEDS: LOSARTAN POTASSIUM 50 MG TAB PO SCH (20:03)
[2020-11-10] MEDS: OXYBUTYNIN CHLORIDE 5 MG TAB PO SCH (20:03)
[2020-11-10] MEDS: MAGNESIUM OXIDE 400 MG TAB PO SCH (20:04)
[2020-11-10] MEDS: TAMSULOSIN HCL 0.4 MG CAP PO SCH (20:04)
[2020-11-10] MEDS: PANTOprazole 40 MG TAB PO SCH (20:04)
[2020-11-10] MEDS ORDERED: lisinopril 2.5 MG TAB PO SCH (21:00)
[2020-11-11] MEDS: POTASSIUM CHLORIDE 40 MEQ in SODIUM CHLORIDE 0.45 % 1,000 ML IV SCH (02:25)
[2020-11-11] MEDS: KETOROLAC TROMETHAMINE 15 MG/ML VIAL IV PRN ×2 (02:59→19:36)
[2020-11-11] MEDS: ACETAMINOPHEN 500 MG TAB PO SCH ×3 (05:24→21:53)
[2020-11-11 07:38] LABS: Hematocrit (blood only) 34.5 % (37-47); Hemoglobin 11.3 g/dL (12.0-16.0); Mean Corpuscular Hemoglobin 27.8 pg (25-34); Mean Corpuscular Hgb Conc 32.8 g/dL (32-36); Mean Platelet Volume 9.7 fL (7.4-10.4); Platelet Count 120 K/uL (130-400); RDW Coefficient of Variation 13.2 % (11.5-14.5); RDW Standard Deviation 40.9 fL (36.4-46.3); Red Blood Count 4.06 M/uL (4.2-5.4); White Blood Count 5.08 K/uL (4.8-10.8)
[2020-11-11] MEDS: ATORVASTATIN 20 MG TAB PO SCH (07:51)
[2020-11-11] MEDS: PHENAZOPYRIDINE HCL 200 MG TAB PO SCH ×3 (07:52→21:27)
[2020-11-11] MEDS: amLODIPine BESYLATE 5 MG TAB PO SCH (07:52)
[2020-11-11] MEDS: OXYBUTYNIN CHLORIDE 5 MG TAB PO SCH ×2 (07:52→21:26)
[2020-11-11] MEDS: LEFLUNOMIDE 10 MG TAB PO SCH (07:52)
[2020-11-11] MEDS: PANTOprazole 40 MG TAB PO SCH ×2 (07:53→21:27)
[2020-11-11] MEDS: LOSARTAN POTASSIUM 50 MG TAB PO SCH (07:53)
[2020-11-11] MEDS: MAGNESIUM OXIDE 400 MG TAB PO SCH ×2 (07:53→21:26)
[2020-11-11 08:06] LABS: BUN Creatinine Ratio 25.3 (10-20); Creatinine Clr Calc Pharmacy 88.8 ml/min; Est GFR (Non-African American) 92.3
[2020-11-11] MEDS: MoRPHine SULFATE 4 MG/ML 1 ML CARP\\VIAL IV PRN ×2 (09:01→18:43)
--- NOTE | 2020-11-11 09:25 | Hospitalist Progress Note ---
Date of Service November 11, 2020 Assessment & Plan (1) Asymptomatic hypertensive urgency: Resolved. Secondary to left ureteral colic. Situational and is improved back on home regimen including amlodipine and losartan. Cont with good pain control efforts. (2) Ureteral colic: After left stent placement for ureteral stone last week. Flomax was restarted, continue IV fluids, Pyridium was scheduled, Ditropan was scheduled, belladonna suppository as needed, morphine as needed, Tylenol was scheduled, Toradol as needed, oxycodone as needed heating pad as needed for comfort. Urology removed stent today and she is recovering on the floor. (3) Rheumatoid arthritis: Continue leflunomide per home regimen. (4) DVT prophylaxis: Lovenox, Full code Disposition- home when medically stable and asymptomatic. Aileen Ziegler DO [facility] Hospitalist Admission and Anticipated Discharge Date Admission Date: November 10, 2020 Subjective 60-year-old female with recent admission for left ureteral calculus with subsequent left ureteral stent placement ultimately discharged home in stable condition returned with hypertension and left flank pain with intense stent discomfort. post procedure she is still having discomfort but states that she is better overall she is tolerating PO but then became nauseous Review of Systems Review of Systems: All systems reviewed & are unremarkable except as noted in Subjective Physical Exam Physical Exam: CONSTITUTIONAL: WNWD, vitals as above, generally in mild distress EYES: normal conjunctivae, no scleral icterus ENT: external ear and nose normal, MMM RESPIRATORY: clear to auscultation bilaterally, no crackles, rales or wheezes, normal respiratory effort CARDIOVASCULAR: regular rate and rhythm, S1 and 2 heard without murmurs, gallops or rubs, no JVD, no peripheral edema GASTROINTESTINAL: soft, TTP on left side, +L CVA tenderness, nondistended. MUSCULOSKELETAL: ambulatory, no gross focal deficits. SKIN: warm and dry NEUROLOGIC: CN 2-12 grossly intact, no sensory deficit, normal cognition, normal speech, no tremor PSYCHIATRIC: alert cooperative and oriented to person, place and time. Euthymic mood, makes good eye contact, language grossly intact, recent and remote memory grossly intact. LYMPHATIC: no LAD Results & Data Results & Data ([facility]) Vital Signs (Past 12 Hours) Vital Signs Temp Pulse Pulse Resp BP BP Pulse Ox 11/11/20 09:00 67 18 141/77 H 95 03/29/21 07:16 36.5 C 55 L 18 149/83 H 95 11/11/20 04:00 36.3 C L 57 L 18 127/82 94 11/10/20 23:08 65 11/10/20 23:00 36.6 C 65 18 133/72 95 Laboratory Results Short CBC 11/11/20 Range/Units 07:19 WBC 5.08 (4.8-10.8) K/uL Hgb 11.3 L (12.0-16.0) g/dL Hct 34.5 L (37-47) % Plt Count 120 L (130-400) K/uL BMP 11/11/20 07:19 Sodium 141 Potassium 4.0 Chloride 112 H Carbon Dioxide 24 BUN 18 Creatinine 0.72 Glucose 103 H Calcium 9.0 Medications Administered Current Inpatient Medications Acetaminophen (Acetaminophen 500 Mg Tab) 1,000 mg PO Q8 MACY Stop: 12/10/20 15:14 Last Admin: 11/11/20 05:24 Dose: 1,000 mg Documented by: Amlodipine Besylate (Amlodipine Besylate 5 Mg Tab) 10 mg PO DAILY MACY Stop: 12/10/20 02:09 Last Admin: 11/11/20 07:52 Dose: 10 mg Documented by: Atorvastatin Calcium (Atorvastatin 20 Mg Tab) 20 mg PO DAILY MACY Stop: 12/11/20 08:59 Last Admin: 11/11/20 07:51 Dose: 20 mg Documented by: Belladonna Alkaloids/Opium (Belladonna/Opium Supp 60 Mg Supp) 60 mg [place] Q12H PRN PRN Reason: severe bladder pain/spasms Stop: 11/24/20 15:07 Enoxaparin Sodium (Enoxaparin Inj 40 Mg/0.4 Ml Syr) 40 mg SQ QPM MACY Stop: 12/10/20 19:29 Last Admin: 11/10/20 19:51 Dose: 40 mg Documented by: Promethazine HCl 12.5 mg/ (Sodium Chloride) 50.5 mls @ 202 mls/hr IV Q6H PRN PRN Reason: Nausea And Vomiting Stop: 12/10/20 01:33 Last Infusion: 11/10/20 12:11 Dose: Infused Documented by: Lorazepam (Ativan) 0.5 mg in 1 mls @ 1 mls/min IV Q4H PRN PRN Reason: Anxiety/Agitation Stop: 12/10/20 01:33 Potassium Chloride 40 meq/ (Sodium Chloride) 1,020 mls @ 40 mls/hr IV .Q24H MACY Stop: 12/10/20 02:29 Last Admin: 11/11/20 02:25 Dose: 40 mls/hr Documented by: Ketorolac Tromethamine (Ketorolac Tromethamine 15 Mg/Ml Vial) 15 mg IV Q6H PRN PRN Reason: Pain Stop: 11/15/20 15:11 Last Admin: 11/11/20 02:59 Dose: 15 mg Documented by: Leflunomide (Leflunomide 10 Mg Tab) 20 mg PO QAM [facility] Stop: 12/11/20 08:59 Last Admin: 11/11/20 07:52 Dose: 20 mg Documented by: Losartan Potassium (Losartan Potassium 50 Mg Tab) 100 mg PO QAM [facility] Stop: 12/10/20 18:59 Last Admin: 11/11/20 07:53 Dose: 100 mg Documented by: Magnesium Oxide (Magnesium Oxide 400 Mg Tab) 400 mg PO BID [facility] Stop: 12/10/20 20:59 Last Admin: 11/11/20 07:53 Dose: 400 mg Documented by: Morphine Sulfate (Morphine Sulfate 4 Mg/Ml 1 Ml Carp\Vial) 4 mg IV Q4H PRN PRN Reason: Pain Stop: 11/24/20 01:33 Last Admin: 11/11/20 09:01 Dose: 4 mg Documented by: Oxybutynin Chloride (Oxybutynin Chloride 5 Mg Tab) 5 mg PO BID MACY Stop: 12/10/20 20:59 Last Admin: 11/11/20 07:52 Dose: 5 mg Documented by: Oxycodone HCl (Oxycodone Hcl Ir 5 Mg Tab (Immediate Release)) 5 - 10 mg PO QID PRN PRN Reason: Pain Stop: 11/24/20 01:33 Last Admin: 11/10/20 09:56 Dose: 10 mg Documented by: Pantoprazole Sodium (Pantoprazole 40 Mg Tab) 40 mg PO BID MACY Stop: 12/10/20 20:59 Last Admin: 11/11/20 07:53 Dose: 40 mg Documented by: Phenazopyridine HCl (Phenazopyridine Hcl 200 Mg Tab) 200 mg PO TID MACY Stop: 12/10/20 20:59 Last Admin: 11/11/20 07:52 Dose: 200 mg Documented by: Tamsulosin HCl (Tamsulosin Hcl 0.4 Mg Cap) 0.4 mg PO HS [facility] Stop: 12/10/20 20:59 Last Admin: 11/10/20 20:04 Dose: 0.4 mg Documented by:
--- NOTE | 2020-11-11 12:54 | Urology Progress Note ---
Date of Service November 11, 2020 Assessment & Plan (1) Calculus of proximal left ureter: (2) Renal colic on left side: 60yo F s/p recent admission for left ureteral calculus with subsequent L ureteral stent placement admitted with intractable left flank pain -Afebrile, VSS, non-toxic appearing. -Labs reviewed - Wbc and creatinine stable -Continues with left flank/back pain and intense stent discomfort -Plan of care reviewed with Dr. Skinner -Given her intractable left flank pain and stent discomfort, will proceed with OR for Cystoscopy, Left retrograde pyelogram and Left stent exchange, possible Ureteroscopy, Laser lithotripsy, stone treatment depending on findings. Risks and benefits to be reviewed with patient by Dr. Skinner. OR notified. Covid test from 11/09 in chart and negative. Will cover with IV antibiotics preoperatively. -Expected clinical course reviewed with patient -She is agreeable to plan, all questions were answered ATTENDING NOTE: Agree with above. Independently evaluated, assessed, and discussed. Risks and benefits discussed at length for procedure. These include bleeding, infection, injury to surrounding tissues or organs, and risks associated with anesthesia. Patient states understanding and agrees to proceed. Will sign consent and proceed Plan for cystoscopy with left ureteroscopy. Admission and Anticipated Discharge Date Admission Date: November 10, 2020 Subjective Pt examined at bedside. Awake, sitting in chair on arrival. Still with left back/flank pain, managing with IV pain medication No fevers or chills Some nausea, no vomiting Some hematuria/dysuria No dizziness Has been NPO Chart review: Afebrile, Wbc 5.08, creatinine 0.72 Review of Systems Constitutional: as per Subjective / HPI Gastrointestinal: as per Subjective / HPI Genitourinary: as per Subjective / HPI Physical Exam Constitutional: well developed and well nourished; no acute distress Respiratory: normal respiratory effort and able to speak in complete sentences; no labored breathing Gastrointestinal (Abdomen): Inspection/Auscultation: abdomen normal to inspection; abdomen not distended Skin: no rashes, warm and dry Neurologic: moves all extremities and awake; not confused Psychiatric: Orientation: alert, oriented x 3 and cooperative Genitourinary: + CVA tenderness (left) Results & Data ([facility]) Vital Signs (Past 12 Hours) Vital Signs Temp Pulse Pulse Resp BP BP Pulse Ox 11/11/20 11:20 36.6 C 68 18 119/69 96 11/11/20 09:00 67 18 141/77 H 95 11/11/20 08:00 58 L 11/11/20 07:16 36.5 C 55 L 18 149/83 H 95 11/11/20 04:00 36.3 C L 57 L 18 127/82 94 PG Care Time/CCT Total # of Minutes Spent Total Time Spent with Patient: Total time spent is greater than 50% in coordination of care (as documented) at patient's floor/unit and/or counseling patient: Coding Level of Care Code 71530 Subseq Hosp Care Lvl 2 Diagnoses Calculus of proximal left ureter N20.1 Renal colic on left side N23
--- NOTE | 2020-11-11 15:28 | Anesthesiology Consultation ---
Date of Service November 11, 2020 Assessment & Plan ASA ASA3 Proposed Anesthesia Anesthesia Type: General Risk / Benefits Reviewed With: PT / POA / Parent / Guardian, Accepts Plan and Informed Consent Obtained History Surgery Operation Date: 11/11/20 16:40 Proposed Procedures p Cystoscopy, Left Retrograde Pyelogram, Left Ureteral Stent Exchange, Possible Ureteroscopy, Laser Litho Stone Treatment - Bill Skinner, DO Height/Weight Height: 5 ft 6 in Weight: 76.1 kg Allergies Allergy/AdvReac Type Severity Reaction Status Date / Time sulfamethoxazole Allergy Intermediate ITCHING Verified 11/05/20 19:04 trimethoprim Allergy Intermediate ITCHING Verified 11/05/20 19:04 naproxen AdvReac Intermediate NAUSEA AND Verified 11/05/20 19:04 [id number] Medications Home Medications Medication Instructions Recorded Confirmed Last Taken albuterol sulfate [Proventil HFA] 2 puff INHALATION Q6H PRN 01/24/20 11/09/20 Unknown losartan 100 mg PO QAM 01/24/20 11/09/20 03/14/20 acetaminophen 650 mg PO Q6H PRN #30 tab 03/16/20 11/09/20 Unknown magnesium oxide 400 mg PO BID #20 tab 03/16/20 11/09/20 Unknown tizanidine 4 mg PO TID PRN #20 tab 03/16/20 11/09/20 Unknown leflunomide 20 mg PO QAM 07/20/20 11/09/20 Unknown ibuprofen 800 mg PO DAILY PRN 11/04/20 11/09/20 Unknown omega-3 fatty acids 1,000 mg PO QAM 11/04/20 11/09/20 Unknown potassium chloride [Klor-Con 10] 20 meq PO QAM 11/04/20 11/09/20 Unknown amlodipine 10 mg PO DAILY 11/05/20 11/09/20 Unknown atorvastatin 20 mg PO DAILY 11/05/20 11/09/20 Unknown fluticasone propionate 2 spray INTRANASAL DAILY 11/05/20 11/09/20 Unknown pantoprazole 40 mg PO BID 11/05/20 11/09/20 Unknown sucralfate 1 g PO BID 11/05/20 11/09/20 Unknown oxybutynin chloride [Ditropan XL] 5 mg PO DAILY PRN #10 tab 11/07/20 11/09/20 Unknown phenazopyridine [Pyridium] 200 mg PO Q8H PRN #20 tab 11/07/20 11/09/20 Unknown tamsulosin [Flomax] 0.4 mg PO HS #20 cap 11/07/20 11/09/20 Unknown Active Medications Generic Name Dose Route Start Last Admin Trade Name Freq PRN Reason Stop Dose Admin Acetaminophen 1,000 mg 11/10/20 15:15 11/11/20 14:43 Acetaminophen 500 Mg Tab PO 12/10/20 15:14 Not Given Q8 MACY Amlodipine Besylate 10 mg 11/10/20 02:10 11/11/20 07:52 Amlodipine Besylate 5 Mg Tab PO 12/10/20 02:09 10 mg DAILY MACY Administration Atorvastatin Calcium 20 mg 11/11/20 09:00 11/11/20 07:51 Atorvastatin 20 Mg Tab PO 12/11/20 08:59 20 mg DAILY MACY Administration Enoxaparin Sodium 40 mg 11/10/20 19:30 11/10/20 19:51 Enoxaparin Inj 40 Mg/0.4 Ml Syr SQ 12/10/20 19:29 40 mg QPM MACY Administration Promethazine HCl 12.5 mg/ 50.5 mls @ 202 mls/hr 11/10/20 00:05 11/10/20 12:11 Sodium Chloride IV 12/10/20 01:33 Infused Q6H PRN Infusion Nausea And Vomiting Potassium Chloride 40 meq/ 1,020 mls @ 40 mls/hr 11/10/20 02:30 11/11/20 02:25 Sodium Chloride IV 12/10/20 02:29 40 mls/hr .Q24H MACY Administration Ketorolac Tromethamine 15 mg 11/10/20 15:12 11/11/20 02:59 Ketorolac Tromethamine 15 Mg/Ml Vial IV 11/15/20 15:11 15 mg Q6H PRN Administration Pain Leflunomide 20 mg 11/11/20 09:00 11/11/20 07:52 Leflunomide 10 Mg Tab PO 12/11/20 08:59 20 mg QAM MACY Administration Losartan Potassium 100 mg 11/10/20 19:00 11/11/20 07:53 Losartan Potassium 50 Mg Tab PO 12/10/20 18:59 100 mg QAM MACY Administration Magnesium Oxide 400 mg 11/10/20 21:00 11/11/20 07:53 Magnesium Oxide 400 Mg Tab PO 12/10/20 20:59 400 mg BID MACY Administration Morphine Sulfate 4 mg 11/10/20 00:05 11/11/20 09:01 Morphine Sulfate 4 Mg/Ml 1 Ml Carp\Vial IV 11/24/20 01:33 4 mg Q4H PRN Administration Pain Oxybutynin Chloride 5 mg 11/10/20 21:00 11/11/20 07:52 Oxybutynin Chloride 5 Mg Tab PO 12/10/20 20:59 5 mg BID MACY Administration Oxycodone HCl 5 - 10 mg 11/10/20 00:05 11/10/20 09:56 Oxycodone Hcl Ir 5 Mg Tab (Immediate Release) PO 11/24/20 01:33 10 mg QID PRN Administration Pain Pantoprazole Sodium 40 mg 11/10/20 21:00 11/11/20 07:53 Pantoprazole 40 Mg Tab PO 12/10/20 20:59 40 mg BID MACY Administration Phenazopyridine HCl 200 mg 11/10/20 21:00 11/11/20 14:43 Phenazopyridine Hcl 200 Mg Tab PO 12/10/20 20:59 Not Given TID MACY Tamsulosin HCl 0.4 mg 11/10/20 21:00 11/10/20 20:04 Tamsulosin Hcl 0.4 Mg Cap PO 12/10/20 20:59 0.4 mg HS MACY Administration NPO Date Last Intake of Fluids: 11/10/20 Time Last Intake of Fluids: 18:00 Last Intake of Fluids Comment: sips of water with pills this am Date Last Intake of Solids: 11/10/20 Time Last Intake of Solids: 18:00 Past Medical History Medical History Chronic cough inhaler for this > rare use > no asthma dx GERD (gastroesophageal reflux disease) High blood pressure Hyperlipidemia IBS (irritable bowel syndrome) Insomnia Kidney stones Migraine Osteoarthritis Rheumatoid arthritis Exercise / Class Metabolic Activity II 4-5 Yardwork/Stairs/Walk up hill Past Surgical History Surgical History H/O endoscopic retrograde cholangiopancreatography History of appendectomy History of cholecystectomy History of colonoscopy History of cystoscopy History of dilatation and curettage History of esophagogastroduodenoscopy (EGD) History of hysterectomy History of lithotripsy History of tooth extraction Past Anesthesia History No Hx of Anesthesia Complications and No Family Hx of Anesthesia Complications History of PONV No Hx of PONV and No Hx of Motion Sickness Social History Smoking Status: Former smoker Hx Alcohol Use: Yes alcohol intake frequency: holidays/special occasions only Hx Substance Use: No substance use type: does not use Review of Systems denies fever/cough/ colds/ chest pain/ SOB/ ETHAN denies ETHAN Physical Exam Vital Signs Last Vital Signs Temp 37.1 C 11/11/20 15:22 Pulse 67 11/11/20 15:22 Resp 18 11/11/20 15:22 BP 161/90 H 11/11/20 15:22 Pulse Ox 96 11/11/20 15:22 ENMT Mouth: no TMJ abnormality and no dentition abnormality (multiple missing) Thyromental Distance: > or= 3.5 Finger Breadths Mallampati Class: II Neck neck extension not limited Respiratory normal respiratory effort; no respiratory distress Auscultation: lungs clear to auscultation bilaterally Cardiovascular Rate/Rhythm: regular rate and regular rhythm Neurologic moves all extremities Psychiatric Orientation: alert and oriented x 3 Testing Laboratory Results 11/11/20 07:19 11/11/20 07:19 Urine Color Red 11/09/20 21:50 Urine Appearance Cloudy (Clear) A 11/09/20 21:50 Urine pH 7.0 (4.5-7.5) 11/09/20 21:50 Ur Specific [place] 1.020 (1.000-1.030) 11/09/20 21:50 Urine Protein 3+ (Negative) H 11/09/20 21:50 Urine Glucose (UA) Negative (Negative) 11/09/20 21:50 Urine Ketones Trace (Negative) H 11/09/20 21:50 Urine Nitrite Negative (Negative) 11/09/20 21:50 Ur Leukocyte Esterase Trace (Negative) H 11/09/20 21:50 Urine RBC >30 /hpf (0-4) H 11/09/20 21:50 Urine WBC 10-30 /hpf (0-5) H 11/09/20 21:50 Ur Epithelial Cells 0-5 /lpf (0-5) 11/09/20 21:50 11/09/20 21:50 Urine Culture - Final Urine,Clean Catch No growth - less than 1,000 colonies/mL.
[2020-11-11] MEDS ORDERED: ePHEDrine sulfate 50 MG/ML AMP IV PRN (15:29)
[2020-11-11] MEDS ORDERED: ATROPINE SULFATE 0.1 MG/ML 10ML SYR IV PRN (15:29)
[2020-11-11] MEDS ORDERED: ONDANSETRON INJ 2 MG/ML 2 ML VIAL IV PRN (15:29)
[2020-11-11] MEDS ORDERED: CIPROFLOXACIN / D5W 400 MG/200 ML BAG IV SCH (15:30)
[2020-11-11] MEDS ORDERED: ONDANSETRON INJ 2 MG/ML 2 ML VIAL ONE (15:36)
[2020-11-11] MEDS ORDERED: LIDOCAINE HCL 2% 2 ML VIAL/AMP(20MG/ML) INFIL ONE (15:36)
[2020-11-11] MEDS ORDERED: PROPOFOL IV EMULSION 10 MG/ML 20 ML VIAL IV ONE (15:36)
[2020-11-11] MEDS ORDERED: fentaNYL citrate 100 MCG/2 ML VIAL ONE (15:37)
[2020-11-11] MEDS ORDERED: MIDAZOLAM HCL 1 MG/ML 2ML VIAL ONE (15:37)
[2020-11-11] MEDS ORDERED: DIATRIZOATE MEGLUMINE 30% 100ML VIAL INSTIL ONE (17:03)
--- NOTE | 2020-11-11 17:11 | Operative Report ---
PG Post Operative Report Pre & Post Diagnosis Operation Date: 11/11/20 16:40 Pre-Op Diagnosis: Calculus of Renal Pelvis Post-Op Diagnosis: Calculus of Renal Pelvis I identified the patient and participated in the time-out.: Yes Procedure Operation Date: 11/11/20 16:40 Actual Procedures p Cystoscopy, Left Retrograde Pyelogram, Left Ureteral Stent Exchange, Left Ureteroscopy, Laser Lithotripsy, Stone Basket Extraction (Left) - Bill Skinner DO Surgeon Bill Skinner, II, DO Technical Maintenance Specialist None Estimated Blood Loss 1 Findings Consistent with Post-Op Diagnosis Stone destroyed to dust and small fragments and larger fragments removed. Specimens Stone Fragments Drains 6 Fr Multilength without tether Anesthesia Type General Complications none Disposition Disposition: Recovery Room Indications Patient with bothersome stones. Risks and benefits discussed at length. Description of Procedure Patient was consented and brought back to the operating room. Patient was placed under anesthesia in the supine position and moved to the dorsal lithotomy position. Patient was prepped and draped in the regular sterile fashion. A time out was completed identifying the correct patient and procedure. A 30degree Cystoscope was placed into the bladder and the entire bladder was examined. The UO's were identified. The stent was grasped and partially removed. A wire was placed. The UO was cannulized with a catheter and a retrograde pyelogram was completed. A second wire was then placed. A ureteral access sheath and safety wire was placed. The flexible ureteroscope was taken into the ureter. The entire ureter and renal pelvis were examined. The stones were identified. A laser fiber was selected and the stones were pulverized to dust and small fragments. Larger fragments were grasped and removed and sent for analysis. The entire area was once again examined. No residual large fragments or areas of concern were noted. The scope was slowly removed with the wire left in place. Contrast was placed through the scope for a pyelogram to assist in stent placement. The entire ureter was examined as the scope was slowly removed. No obstructions or other areas of concern were noted. With the wire in place, a 6 Fr Double J stent was placed. It was confirmed with fluoroscopy. With the stent in place, the bladder was emptied. The scope was removed. The patient was cleaned, aroused from anesthesia, and transferred to the pacu in stable condition having tolerated the procedure well with no complications. I was present and participated in all aspects of the procedure. The patient will be monitored in the PACU until transferred. Plan to remove stent in 1-2 weeks after KUB I attest to the content of the Intraoperative Record and any orders documented therein. Any exceptions are noted below.
--- NOTE | 2020-11-11 17:41 | Fluoroscopy Report ---
INTRAOPERATIVE RADIOGRAPHS CLINICAL HISTORY: Left-sided ureteral stent placement. Fluoroscopy time: 51 seconds. FINDINGS: 6 spot fluoroscopic views of the left abdomen are correlated with abdominal CT dated . Initial images show a catheter projecting over the left proximal ureter and the left renal pelvi s. A presumed lithotripsy device is advanced. There is mild dilatation of the left renal collecting s ystem. The final 2 images show the proximal and distal ends of a left ureteral stent in place. IMPRESSION: Intraoperative images from a left ureteral stent placement procedure as above. Electronically signed by: Ramy Sparrow M.D. 11/11/2020 5:40 PM
[2020-11-11] MEDS: fentaNYL citrate 100 MCG/2 ML VIAL IV PRN ×2 (17:44→17:50)
--- NOTE | 2020-11-11 18:27 | Anesthesiology Progress Note ---
Date of Service November 11, 2020 Anesthesia Post Procedure Vital Signs Vital Signs: Temp Pulse Pulse Pulse Resp BP BP 11/11/20 18:00 62 14 146/85 H 11/11/20 17:50 37 C 67 13 143/78 H 11/11/20 17:40 68 14 158/84 H 11/11/20 17:30 68 16 155/76 H 11/11/20 17:20 68 15 152/80 H 11/11/20 17:14 71 16 149/86 H 11/11/20 15:22 37.1 C 67 18 161/90 H 11/11/20 14:30 58 L 11/11/20 11:20 36.6 C 68 18 119/69 11/11/20 09:00 67 18 141/77 H 11/11/20 08:00 58 L 11/11/20 07:16 36.5 C 55 L 18 149/83 H 11/11/20 04:00 36.3 C L 57 L 18 127/82 11/10/20 23:08 65 11/10/20 23:00 36.6 C 65 18 133/72 11/10/20 19:00 36.7 C 67 18 153/84 H Pulse Ox 11/11/20 18:00 92 11/11/20 17:50 94 11/11/20 17:40 95 11/11/20 17:30 97 11/11/20 17:20 98 11/11/20 17:14 99 11/11/20 15:22 96 11/11/20 14:30 11/11/20 11:20 96 11/11/20 09:00 95 11/11/20 08:00 11/11/20 07:16 95 11/11/20 04:00 94 11/10/20 23:08 11/10/20 23:00 95 11/10/20 19:00 95 Pain Intensity Left Flank: Pain Intensity: 3 Transfer of Care Handoff Completed per policy Notes Mental Status: alert / awake / arousable and participated in evaluation Patient Amnestic to Procedure: Yes Nausea / Vomiting: adequately controlled Pain: adequately controlled Airway Patency, RR, SpO2: stable & adequate BP & HR: stable & adequate Hydration State: stable & adequate Anesthetic Complications: no major complications apparent and Pt Satisfied with anesthetic care
[2020-11-11] MEDS: ENOXAPARIN INJ 40 MG/0.4 ML SYR SQ SCH (20:03)
[2020-11-11] MEDS ORDERED: Nursing to Pharmacy Communication SCH (20:30)
[2020-11-11] MEDS: TAMSULOSIN HCL 0.4 MG CAP PO SCH (21:26)
[2020-11-11] MEDS ORDERED: KETOROLAC TROMETHAMINE 15 MG/ML VIAL IV ONE (22:10)
[2020-11-12] MEDS: KETOROLAC TROMETHAMINE 15 MG/ML VIAL IV PRN ×2 (03:26→09:01)
[2020-11-12] MEDS: ACETAMINOPHEN 500 MG TAB PO SCH ×2 (05:22→14:16)
[2020-11-12 07:22] LABS: Hematocrit (blood only) 33.6 % (37-47); Hemoglobin 11.5 g/dL (12.0-16.0); Mean Corpuscular Hemoglobin 28.8 pg (25-34); Mean Corpuscular Hgb Conc 34.2 g/dL (32-36); Mean Platelet Volume 9.4 fL (7.4-10.4); Platelet Count 122 K/uL (130-400); RDW Coefficient of Variation 13.2 % (11.5-14.5); White Blood Count 5.12 K/uL (4.8-10.8)
[2020-11-12 07:56] LABS: BUN Creatinine Ratio 21.4 (10-20); Calcium 8.7 mg/dl (8.5-10.1); Creatinine Clr Calc Pharmacy 92.2 ml/min; Est GFR (African American) 111.2; Potassium 4.3 mmol/L (3.5-5.1)
[2020-11-12] MEDS: ATORVASTATIN 20 MG TAB PO SCH (08:06)
[2020-11-12] MEDS: MAGNESIUM OXIDE 400 MG TAB PO SCH (08:06)
[2020-11-12] MEDS: PHENAZOPYRIDINE HCL 200 MG TAB PO SCH ×2 (08:07→14:16)
[2020-11-12] MEDS: LEFLUNOMIDE 10 MG TAB PO SCH (08:07)
[2020-11-12] MEDS: amLODIPine BESYLATE 5 MG TAB PO SCH (08:07)
[2020-11-12] MEDS: LOSARTAN POTASSIUM 50 MG TAB PO SCH (08:08)
[2020-11-12] MEDS: OXYBUTYNIN CHLORIDE 5 MG TAB PO SCH (08:08)
--- NOTE | 2020-11-12 08:10 | Anesthesiology Progress Note ---
Date of Service November 12, 2020 Anesthesia Post Procedure Vital Signs Vital Signs: Temp Pulse Pulse Pulse Resp BP BP 11/12/20 07:02 36.5 C 59 L 18 128/76 11/12/20 07:00 57 L 11/12/20 04:00 36.9 C 97 H 18 118/75 11/12/20 00:59 66 11/11/20 23:00 36.6 C 69 18 134/79 11/11/20 19:26 36.8 C 65 16 152/80 H 11/11/20 18:30 36.5 C 58 L 18 130/83 11/11/20 18:15 36.7 C 59 L 18 161/84 H 11/11/20 18:00 62 14 146/85 H 11/11/20 17:50 37 C 67 13 143/78 H 11/11/20 17:40 68 14 158/84 H 11/11/20 17:30 68 16 155/76 H 11/11/20 17:20 68 15 152/80 H 11/11/20 17:14 71 16 149/86 H 11/11/20 15:22 37.1 C 67 18 161/90 H 11/11/20 14:30 58 L 11/11/20 11:20 36.6 C 68 18 119/69 11/11/20 09:00 67 18 141/77 H Pulse Ox 11/12/20 07:02 94 11/12/20 07:00 11/12/20 04:00 92 11/12/20 00:59 11/11/20 23:00 94 11/11/20 19:26 94 11/11/20 18:30 93 11/11/20 18:15 90 11/11/20 18:00 92 11/11/20 17:50 94 11/11/20 17:40 95 11/11/20 17:30 97 11/11/20 17:20 98 11/11/20 17:14 99 11/11/20 15:22 96 11/11/20 14:30 11/11/20 11:20 96 11/11/20 09:00 95 Pain Intensity Left Flank: Pain Intensity: 3 Notes Mental Status: alert / awake / arousable Patient Amnestic to Procedure: Yes Nausea / Vomiting: adequately controlled Pain: adequately controlled Airway Patency, RR, SpO2: stable & adequate BP & HR: stable & adequate Hydration State: stable & adequate Anesthetic Complications: no major complications apparent and Pt Satisfied with anesthetic care
[2020-11-12] MEDS: PANTOprazole 40 MG TAB PO SCH (08:57)
--- NOTE | 2020-11-12 09:43 | Urology Progress Note ---
Date of Service November 12, 2020 Assessment & Plan (1) Calculus of proximal left ureter: (2) Renal colic on left side: 60yo F s/p recent admission for left ureteral calculus with subsequent L ureteral stent placement admitted with intractable left flank pain. -POD #1 cystoscopy, left ureteroscopy, laser lithotripsy/stone treatment, left stent exchange with Dr. Skinner. -Patient clinically progressing as expected. -Remains afebrile. -Labs reviewed - creatinine and white count stable. -Continue with supportive care and pain control. -Stable for discharge from perspective. -Recommend home with three day course antibiotic therapy, Flomax, PRN Pyridium, and pain control. -Will arrange follow-up with urology service for stent removal with repeat KUB prior to appointment. -Expected clinical course reviewed with patient, all questions answered. Admission and Anticipated Discharge Date Admission Date: November 10, 2020 Subjective POD #1 cystoscopy, left retrograde pyelogram, left ureteral stent exchange, left ureteroscopy, laser lithotripsy, stone basket extraction. Patient feeling better today post procedure. She is awake, alert, and nontoxic. Reports mild left-flank discomfort, likely related to stent. Pain tolerable with PO pain medications. Denies nausea or vomiting. Denies fevers or chills. Does report hematuria as expected with mild dysuria. Notes urinary frequency/urgency. Has been ambulating without dizziness/lightheadedness. She is anxious to go home today. Chart review: Afebrile. Wbc 5.12 Hgb 11.5 Creatinine 0.69 Urine culture 11/09 no growth. Denies additional urologic concerns today. Review of Systems Constitutional: as per Subjective / HPI; no fever and no chills Gastrointestinal: as per Subjective / HPI; no nausea and no vomiting Genitourinary: as per Subjective / HPI Physical Exam Constitutional: well developed and well nourished; no acute distress and not ill appearing Respiratory: normal respiratory effort and able to speak in complete sentences; no respiratory distress and no audible wheezes Gastrointestinal (Abdomen): Inspection/Auscultation: abdomen normal to inspection; abdomen not distended Percussion/Palpation: abdomen soft; abdomen nontender and no guarding Psychiatric: Orientation: alert, oriented x 3 and cooperative Affect: euthymic affect Results & Data ([facility]) Vital Signs (Past 12 Hours) Vital Signs Temp Pulse Pulse Resp BP Pulse Ox 11/12/20 07:02 36.5 C 59 L 18 128/76 94 11/12/20 07:00 57 L 11/12/20 04:00 36.9 C 97 H 18 118/75 92 11/12/20 00:59 66 11/11/20 23:00 36.6 C 69 18 134/79 94 PG Care Time/CCT Total # of Minutes Spent Total Time Spent with Patient: Total time spent is greater than 50% in coordination of care (as documented) at patient's floor/unit and/or counseling patient: Coding Level of Care Code 98144 Subseq Hosp Care Lvl 2 Diagnoses Calculus of proximal left ureter N20.1 Renal colic on left side N23
[2020-11-12] MEDS ORDERED: Nursing to Pharmacy Communication SCH (10:15)
--- NOTE | 2020-11-12 12:44 | XRay Report ---
XR chest 2V PA/lateral CLINICAL HISTORY: rule out pneumonia left side COMPARISON STUDY: Chest radiograph November 09, 2020. FINDINGS: Lung volumes are at the lower limits of normal. No pneumothorax or pleural effusion is note d. Linear left basilar opacity reflects atelectasis. No consolidation is identified. Cardiomediastina l silhouette is unremarkable. Left ureteral stent is partially imaged. IMPRESSION: Linear left basilar opacity consistent with atelectasis. No consolidation to suggest pne umonia. ACT 112: Negative or not required by law. Electronically signed by: Jean Pierre Watkins M.D. 11/12/2020 12:42 PM
--- NOTE | 2020-11-12 13:45 | Discharge Summary ---
Date of Service November 12, 2020 Admission HPI Per Admitting Provider History obtained from patient and records. Medical history significant for rheumatoid arthritis as per records, hypertension, hyperlipidemia, fatty liver as per records, urolithiasis, GERD, prediabetes, past tobacco abuse. Recent November 052020 for ureteral colic left. Patient found to have 1.6 mm stone left UPJ causing obstruction. Patient underwent cystoscopy and subsequent left stent placement. Patient discharged on Flomax and Pyridium Rx. Urology follow-up planned for next week for definitive stone treatment. Yesterday patient noted achy left flank pain symptoms which subsequently became intolerable. Some hematuria, no fever, no chills. Some nausea, no emesis. No headache, no chest pain, no S OB. Patient brought by to [facility]. Patient demanding to have stent removed by urologist. MEDICAL HISTORY: As above. SURGERIES: She had cholecystectomy, appendectomy, hysterectomy, tube removal, urologic procedures. FAMILY HISTORY: Heart disease, stroke, liver cancer, diabetes. PERSONAL AND SOCIAL HISTORY: Past tobacco use. No chronic intake of alcoholic beverages. 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 Admission Exam Per Admitting Provider GENERAL: Slightly uncomfortable, pleasant, no respiratory distress SKIN: Normal color, warm HEENT: [place] palpebral conjunctivae, no ptosis, dry buccal mucosa NECK : Supple, no tenderness CHEST : CTA, no tenderness HEART : RRR, no obvious murmurs ABDOMEN: Some distention, nontender BACK : Left flank tenderness EXTREMITIES : LE swelling, no LE tenderness, no other conspicuous deformities noted NEUROLOGIC : Coherent, no facial asymmetry, no other gross focality Principal Diagnosis Asymptomatic hypertensive urgency Ureteral colic status post left stent exchange on 11/11/2020 Discharge Exam CONSTITUTIONAL: WNWD, vitals as above, NAD EYES: normal conjunctivae, no scleral icterus ENT: external ear and nose normal, MMM RESPIRATORY: clear to auscultation bilaterally, no crackles, rales or wheezes, normal respiratory effort CARDIOVASCULAR: regular rate and rhythm, S1 and 2 heard without murmurs, gallops or rubs, no JVD, no peripheral edema GASTROINTESTINAL: soft, NTND, no CVA tenderness MUSCULOSKELETAL: ambulatory, no gross focal deficits. SKIN: warm and dry NEUROLOGIC: CN 2-12 grossly intact, no sensory deficit, normal cognition, normal speech, no tremor PSYCHIATRIC: alert cooperative and oriented to person, place and time. Discharge Data Allergies Allergy/AdvReac Type Severity Reaction Status Date / Time sulfamethoxazole Allergy Intermediate ITCHING Verified 11/05/20 19:04 trimethoprim Allergy Intermediate ITCHING Verified 11/05/20 19:04 naproxen AdvReac Intermediate NAUSEA AND Verified 11/05/20 19:04 VOMITNNG Consultations 11/09/20 23:56 ED Decision to Admit Stat 11/10/20 01:34 Consult Urology Routine Procedures Performed Operation Date: 11/11/20 16:40 Actual Procedures p Cystoscopy, Left Retrograde Pyelogram, Left Ureteral Stent Exchange, Left Ureteroscopy, Laser Lithotripsy, Stone Basket Extraction (Left) - Bill Skinner, DO Ordered Studies 11/09/20 21:42 US renal/blad retro comp Urgent 11/11/20 14:48 FL retrograde includes kub Routine Hospital Course (1) Ureteral colic: (2) Calculus of proximal left ureter: (3) Asymptomatic hypertensive urgency: (4) Rheumatoid arthritis: 60-year-old female who underwent a ureteral stent placement for a 1.6 cm left ureteral stone on 11/[address] Clemente Thompson presented back to the ER with severe postprocedural stent pain. She was admitted to the hospitalist service and urology was consulted. Supportive therapies were given to help control her pain including continuation of Flomax, IV fluids, scheduled Pyridium, scheduled Ditropan, belladonna suppositories and morphine as needed, scheduled Tylenol, Toradol as needed, oxycodone as needed for comfort. Although blood pressure was elevated on arrival, once definitive urologic therapy took place, her blood pressure resolved into the normal range. On 11/11 she underwent a cystoscopy with left retrograde pyelogram and left ureteral stent exchange with left ureteroscopic and laser lithotripsy and stone basket extraction by Dr. Bill Skinner. She recovered overnight and the following day was discharged in stable condition with complete resolution of symptoms. At time of discharge she was hemodynamically stable and afebrile and tolerating p.o. She was mentating and ambulating at baseline and oxygenating well on room air. Close primary care follow-up was recommended and she will follow up with urology as instructed. Total Time Total Time Spent Total Time Spent (In Minutes): 60 Total Time Includes: Examination of the Patient, Discharge Planning, Medication Reconciliation and Communication With Other Providers Discharge Plan Discharge Items Patient Disposition: Home - Self-Care Reason For Visit: HTN, SEVERE RENAL COLIC Discharge Diagnosis: Asymptomatic hypertensive urgency Ureteral colic status post left stent exchange on 11/11/2020 Condition on Discharge: Good Activity: Resume your previous activity Non-emergency contact: Primary Care Provider Call non-emergency contact if: you have any medication questions Follow-up/Referrals: Jluis Doss DO [Primary Care Provider] - (Date & Time 11/18/2020 11:20 AM Provider Jluis Doss DO Department General Internal Medicine [facility] ) Diet: Regular Addtl Attending Provider Instructions: Please take all medications as instructed on discharge list below. It is recommended that you follow-up with your primary care doctor at the time and date noted above. This will be important to ensure your pain is still controlled and you are still doing well after discharge home. This will also be important to check your blood pressure which was elevated at the time of admission. Please follow-up with urology as instructed for stent removal in the next couple of weeks. If you experience any further pain or discomfort please contact [facility] urology at . Someone should be in touch with you to set up your appointment. Your chest x-ray on day of discharge did not show any evidence of pneumonia. It was a pleasure taking care of you! Please call if you have any questions or problems. You can reach a [facility] hospitalist on duty at [facility] 24 hours a day by calling [phone]. Take care of yourself. Aileen Ziegler DO [facility] Hospitalist Addtl [employer] Provider Instructions: Please take all medications as prescribed and keep all follow-ups as scheduled. Our office will contact you for follow-up for stent removal. Please go for KUB prior to that appointment. Please call our office at [phone] with any questions, concerns or need to reschedule appointments for any reason. We are happy to assist you. While you have a ureteral stent in place: Some discomfort is normal. Certain movements may trigger pain or a feeling that you need to urinate. You may also feel mild soreness or pressure before or during urination. These symptoms should go away a few days after the stent is removed. Your urine may be slightly pink or red. This is due to bleeding caused by minor irritation from the stent. This may happen on and off while you have the stent, it is not harmful and is to be expected. Medication to help minimize discomfort or bladder spasms, or to prevent infection may be prescribed. Take this as directed. Drink plenty of fluids to help flush out your urinary tract. If you go home with a catheter, wash with soapy water and a fresh washcloth twice daily. We recommend mild bar soap such as Dial or Dove. How long will you need a stent? An appointment should already be made for you for stent removal, unless directed otherwise. The stent is often taken out after the blockage in the ureter is treated or the ureter has healed. This may take 1-2 weeks, or longer. If a stent is needed for a longer period of time, it may need to be exchanged every few months. Likely prior to your followup appointment you will be asked to get an X-ray, please complete this the night before or morning of your appointment. When to call [facility] Urology at [phone]: Your urine contains heavy blood clots You are constantly leaking urine Fever of 101F or higher, chills, nausea, or vomiting Your pain is not relieved with medication The end of the stent comes out of your urethra Pending Studies at Discharge: No Stand-Alone Forms: My [facility] [address] [facility], Work/School Release (Inpt) Medications and DC Order Prescriptions: New ibuprofen 800 mg tablet 800 mg PO Q8H PRN (Reason: pain) Qty: 30 RF: 0 Continued tizanidine 4 mg Tablet 4 mg PO TID PRN (Reason: headache) Qty: 20 RF: 0 acetaminophen 325 mg Tablet 650 mg PO Q6H PRN (Reason: pain) Qty: 30 RF: 0 magnesium oxide 400 mg (241.3 mg magnesium) Tablet 400 mg PO BID Qty: 20 RF: 0 leflunomide 20 mg tablet 20 mg PO QAM RF: 0 albuterol sulfate [Proventil HFA] 90 mcg/actuation Hfa Aerosol Inhaler 2 puff INHALATION Q6H PRN (Reason: Cough) RF: 0 losartan 100 mg Tablet 100 mg PO QAM RF: 0 potassium chloride [Klor-Con 10] 10 mEq tablet extended release 20 meq PO QAM RF: 0 omega-3 fatty acids Capsule 1,000 mg PO QAM RF: 0 atorvastatin 20 mg tablet 20 mg PO DAILY RF: 0 amlodipine 10 mg tablet 10 mg PO DAILY RF: 0 pantoprazole 40 mg tablet,delayed release (DR/EC) 40 mg PO BID RF: 0 sucralfate 1 gram tablet 1 g PO BID RF: 0 fluticasone propionate 50 mcg/actuation spray,suspension 2 spray INTRANASAL DAILY RF: 0 phenazopyridine [Pyridium] 200 mg tablet 200 mg PO Q8H PRN (Reason: stent pain/bladder spasms) Qty: 20 RF: 0 tamsulosin [Flomax] 0.4 mg capsule 0.4 mg PO HS Qty: 20 RF: 0 oxybutynin chloride [Ditropan XL] 5 mg tablet extended release 24hr 5 mg PO DAILY PRN (Reason: stent pain/bladder spasms) Qty: 10 RF: 0 Discontinued ibuprofen 200 mg Capsule 800 mg PO DAILY PRN (Reason: Pain) RF: 0 Discharge Orders: Discharge Order (Routine); Ordered 11/12/20 Ordered By: Aileen Ziegler Admission Data Admit Date/Time: 11/10/20 15:06 Attending Provider: Aileen Ziegler Admit Provider: Oh Ortiz Primary Care Provider: Jluis Doss Other Providers: Oh Ortiz ; Manuel Otero ; Mario Alberot [place] ; Ethan Lewis ; Mariam Rivera ; Bill Skinner ; Candice Lopez ; Katiuska Crouch ; Beth Montoya ; Jan Thorpe ; Preethi Larson ; Sherlyn Yi Other Interventions: Discharge Summary Assessment (RN) Last Done: 11/12/20 14:23
[2020-11-15 15:26] LABS: Component 2 DNR; Source URETER
== END 2020-11-12 15:15 | disposition home or self-care (01) | DRG 661 ==
LOC: 2N 21:29 → ED 21:29 → 2N 11-10 01:17

== ENCOUNTER 2022-05-29 13:48 | Observation (INO) ==
[2022-05-29] MEDS ORDERED: ONDANSETRON INJ 2 MG/ML 2 ML VIAL IV STA (14:17)
[2022-05-29] MEDS ORDERED: SODIUM CHLORIDE 0.9% 1000ML 1,000 ML IV ONE (14:17)
[2022-05-29] MEDS ORDERED: GI COCKTAIL ED USE PO ONE (14:17)
--- NOTE | 2022-05-29 14:25 | Emergency Department Note ---
Impression & Plan Chest pain, Abdominal pain, Back pain, Elevated troponin ED Provider Note NAME: STACIE DUMAS AGE: 61 SEX: F : 1960 ARRIVES VIA: Walk-In INFORMANT: Patient ED PROVIDER(S): Clifford Workman DO CHIEF COMPLAINT: abdominal pain HPI: Patient is a 61-year-old female who presents ER for abdominal pain. She notes she has been having this off and on since Wednesday. Its worse after eating. Located in the periumbilical region. Radiates anteriorly and posteriorly and wraps around to the sides. Associate with nausea and dry heaving. Denies any dysuria, urgency, or frequency. History of cholecystectomy and appendectomy as well as hysterectomy. She did have some chest tightness that went up into the chest. That has been there since this started on Wednesday. Her abdominal pain currently is about a 6 out of 10. No other exacerbating or remitting factors. Pain in her back is worse with twisting turning and bending. The pain in her chest to Is significantly worse when she pushes on her chest wall ROS: See above HPI for pertinent positives & negatives. A total of 10 systems reviewed and were otherwise negative. PAST MEDICAL HISTORY:See Below PAST SURGICAL HISTORY:See Below FAMILY HISTORY:See Below SOCIAL HISTORY:See Below HOME MEDICATIONS:See Below ALLERGIES:See Below VITALS:See Below PHYSICAL EXAMINATION: GENERAL: Sitting up in bed, alert, well appearing, well nourished, no distress, non-toxic EYE EXAM: normal conjunctiva. OROPHARYNX: no exudate, no erythema, lips, buccal mucosa, and tongue normal and mucous membranes are moist NECK: supple, no nuchal rigidity, no adenopathy, non-tender CHEST: Reproducible anterior chest wall pain LUNGS: Clear to auscultation. Normal chest wall mechanics HEART: no murmurs, S1 normal and S2 normal ABDOMEN: abdomen soft, non-tender, normo-active bowel sounds, no masses, no rebound or guarding. BACK: Back is symmetrical on inspection and there is no deformity, no midline tenderness, no CVA tenderness. Tenderness to the mid bilateral paraspinal thoracic spine region UPPER EXTREMITIES: upper extremities are grossly normal. LOWER EXTREMITIES: No pitting edema. NEURO EXAM: Normal sensorium, cranial nerves II-XII grossly intact, normal speech, no gross weakness of arms, no gross weakness of legs. MEDICAL DECISION MAKING: Patient is a 61-year-old female who presents ER for chest pain, belly pain and back pain. IV was established blood work is obtained. Labs show no significant leukocytosis or anemia. BMP along with LFTs bilirubin was remarkable for slight elevation in LFTs which is unchanged from previous. Troponin was elevated at 17. Lipase was normal. UA was contaminated. COVID was negative. Chest x-ray unremarkable. CT abdomen pelvis was unremarkable. She was given a GI cocktail aspirin and Toradol. She was updated bedside. I do feel majority of this is musculoskeletal. Aorta appears unremarkable on chest x-ray. No history of aortic issues. Patient was updated at bedside. She was discussed with the hospitalist due to history of hypertension, hyperlipidemia in both parents having MIs in her late 50s. Triage Nursing notes reviewed. Limited review of prior medical records performed Vital Signs: reviewed and remarkable for HTN Differential diagnosis: Differential diagnoses includes but is not limited to gastritis, peptic ulcer disease, GERD, gallbladder disease, pancreatitis, small bowel obstruction, acute coronary syndrome, pericarditis, ischemic bowel, irritable bowel disease, irritable bowel syndrome, appendicitis, diverticulitis, malignancy, hernia, urinary tract infection, torsion, /ectopic (if female), perforation, trauma, infectious. ER treatment provided: See below Diagnostics interpreted by me: ECG: Sinus rhythm rate of 60 Normal axis No PVCs QTC 440 Cardiac Monitoring: An order was placed for continuous cardiac monitoring. The monitor shows a rate of 80 with sinus rhythm. Laboratory studies: As stated above and show below. Imaging studies: CT abdomen pelvis is unremarkable Consultation(s): Discussed with Dr. Mark Mustafa for further evaluation Procedures: none Critical Care: None Past Med/Surg History Medical History (Updated 05/29/22 @ 19:23 by Clifford Workman DO) Chronic cough inhaler for this > rare use > no asthma dx GERD (gastroesophageal reflux disease) High blood pressure Hyperlipidemia IBS (irritable bowel syndrome) Insomnia Kidney stones Migraine Osteoarthritis Rheumatoid arthritis Surgical History H/O endoscopic retrograde cholangiopancreatography History of appendectomy History of cholecystectomy History of colonoscopy History of cystoscopy History of dilatation and curettage History of esophagogastroduodenoscopy (EGD) History of hysterectomy History of lithotripsy History of tooth extraction Social History Smoking Status: Former smoker Second Hand Exposure: No; Hx Alcohol Use: Yes Hx Substance Use: No Preferred Language: Swedish Communication Ability: Effective Washer Repairman Required: No Beliefs That Will Affect Care: None marital status: Current Living Situation: Spouse 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 at Home: Yes Assistive Devices: Glasses Allergies Allergies Allergy/AdvReac Type Severity Reaction Status Date / Time sulfamethoxazole Allergy Intermediate ITCHING Verified 05/29/22 15:50 trimethoprim Allergy Intermediate ITCHING Verified 05/29/22 15:50 naproxen AdvReac Intermediate NAUSEA AND Verified 05/29/22 15:50 [id number] Home Meds Home Medications Medication Instructions Recorded Confirmed losartan 100 mg tablet 100 mg PO QAM 01/24/20 05/29/22 amlodipine 10 mg tablet 10 mg PO DAILY 11/05/20 05/29/22 atorvastatin 20 mg tablet 20 mg PO DAILY 11/05/20 05/29/22 leflunomide 10 mg tablet 10 mg PO UD 05/29/22 05/29/22 Results & Data (ED) Vital Signs Vital Signs - 24 hr 05/29/22 14:01 05/29/22 14:54 05/29/22 15:27 Temperature 36.8 C Temperature Source Temporal Artery Scan Pulse Rate 67 Pulse Rate [Apical] Pulse Rhythm [Apical] Pulse Strength [Apical] Respiratory Rate 18 Respiratory Effort / Characteristics Respiratory Depth Blood Pressure 152/82 H Blood Pressure [Right Arm] Blood Pressure Mean 105 Blood Pressure Mean [Right Arm] Pulse Oximetry 98 98 Oxygen Delivery Method Room Air Room Air Room Air Sepsis Recent Fever Within 48 Hours No Sepsis New/Unexplained Change in Mental Status No Sepsis Action Taken by Nursing No Action Required 05/29/22 15:27 05/29/22 17:53 05/29/22 19:00 Temperature Temperature Source Pulse Rate Pulse Rate [Apical] 65 78 85 Pulse Rhythm [Apical] Regular Pulse Strength [Apical] Normal Respiratory Rate 20 20 16 Respiratory Effort / Characteristics Non-Labored Non-Labored Respiratory Depth Normal Normal Blood Pressure Blood Pressure [Right Arm] 167/90 H 187/90 H 196/97 H Blood Pressure Mean Blood Pressure Mean [Right Arm] 115 122 130 Pulse Oximetry 97 99 97 Oxygen Delivery Method Room Air Room Air Room Air Sepsis Recent Fever Within 48 Hours Sepsis New/Unexplained Change in Mental Status Sepsis Action Taken by Nursing Laboratory Data Result diagrams: 05/29/22 14:50 05/29/22 14:50 Lab Results 05/29/22 05/29/22 05/29/22 Range/Units 14:50 14:50 15:26 WBC 7.70 (4.8-10.8) K/ul RBC 5.28 H (3.93-5.22) M/uL Hgb 15.2 (12.0-16.0) g/dl Hct 45.2 H (34.1-44.9) % MCV 85.6 (80.0-100.0) fL MCH 28.8 (25.0-34.0) pg MCHC 33.6 (32.0-36.0) g/dL RDW Std Deviation 39.4 (36.4-46.3) fL RDW Coeff of Rad 12.6 (11.5-14.5) % Plt Count 141 (130-400) K/uL MPV 9.8 (9.4-12.3) fL Immature Gran % (Auto) 0.3 % Neut % (Auto) 66.5 % Lymph % (Auto) 21.9 % [place] % (Auto) 9.2 % Eos % (Auto) 1.8 % Baso % (Auto) 0.3 % Neut # (Auto) 5.12 (1.4-6.5) K/uL Lymph # (Auto) 1.69 (1.2-3.4) K/uL [place] # (Auto) 0.71 (0.24-0.82) K/uL Eos # (Auto) 0.14 (0-0.50) K/uL Baso # (Auto) 0.02 (0-0.2) K/uL Immature Gran # (Auto) 0.02 (0.00-0.02) K/uL Sodium 139 (136-145) mmol/L Potassium 3.9 (3.5-5.1) mmol/L Chloride 105 (98-107) mmol/L Carbon Dioxide 24 (21-32) mmol/L Anion Gap 10 (3-11) BUN 17 (6-23) mg/dl Creatinine 0.76 (0.6-1.2) mg/dl Est Cr Clr Drug Dosing 74.6 ml/min Est GFR ( Amer) 99.5 ml/min Est GFR (Non-Af Amer) 85.9 ml/min BUN/Creatinine Ratio 22.4 H (10-20) Glucose 94 (70-99(Fasting)) mg/dl Lactate (0.4-2.0) mmol/L Calcium 10.3 H (8.5-10.1) mg/dl Total Bilirubin 0.9 (0.2-1.0) mg/dl AST 60 H (13-39) U/L ALT 78 H (7-52) U/L Alkaline Phosphatase 223 H (34-104) U/L Troponin I High Sens 17.6 H (0-14) pg/ml Total Protein 8.1 (6.0-8.3) gm/dl Albumin 4.9 (3.4-5.0) gm/dl Globulin 3.2 (2.5-4.0) gm/dl Albumin/Globulin Ratio 1.5 (0.9-2) Lipase 76 (11-82) U/L Urine Color Dark Yellow Urine Appearance Clear (Clear) Urine pH 6.0 (4.5-7.5) Ur Specific Stebb[place] 1.025 (1.000-1.030) Urine Protein Negative (Negative) Urine Glucose (UA) Negative (Negative) Urine Ketones Negative (Negative) Urine Blood Negative (Negative) Urine Nitrite Negative (Negative) Urine Bilirubin Negative (Negative) Urine Urobilinogen Negative (Negative) Ur Leukocyte Esterase Trace H (Negative) Urine WBC (Auto) 5-10 H (0-5) /hpf Urine RBC (Auto) 0-4 (0-4) /hpf U Hyaline Cast (Auto) 1-5 (0-5) /lpf U Epithel Cells (Auto) 10-20 H (0-5) /lpf Urine Bacteria (Auto) 1+ H (Negative) SARS-CoV-2, RNA, NAAT (NEGATIVE) 05/29/22 05/29/22 05/29/22 Range/Units 17:09 17:51 18:39 WBC (4.8-10.8) K/ul RBC (3.93-5.22) M/uL Hgb (12.0-16.0) g/dl Hct (34.1-44.9) % MCV (80.0-100.0) fL MCH (25.0-34.0) pg MCHC (32.0-36.0) g/dL RDW Std Deviation (36.4-46.3) fL RDW Coeff of Rad (11.5-14.5) % Plt Count (130-400) K/uL MPV (9.4-12.3) fL Immature Gran % (Auto) % Neut % (Auto) % Lymph % (Auto) % [place] % (Auto) % Eos % (Auto) % Baso % (Auto) % Neut # (Auto) (1.4-6.5) K/uL Lymph # (Auto) (1.2-3.4) K/uL [place] # (Auto) (0.24-0.82) K/uL Eos # (Auto) (0-0.50) K/uL Baso # (Auto) (0-0.2) K/uL Immature Gran # (Auto) (0.00-0.02) K/uL Sodium (136-145) mmol/L Potassium (3.5-5.1) mmol/L Chloride (98-107) mmol/L Carbon Dioxide (21-32) mmol/L Anion Gap (3-11) BUN (6-23) mg/dl Creatinine (0.6-1.2) mg/dl Est Cr Clr Drug Dosing ml/min Est GFR ( Amer) ml/min Est GFR (Non-Af Amer) ml/min BUN/Creatinine Ratio (10-20) Glucose (70-99(Fasting)) mg/dl Lactate 0.5 (0.4-2.0) mmol/L Calcium (8.5-10.1) mg/dl Total Bilirubin (0.2-1.0) mg/dl AST (13-39) U/L ALT (7-52) U/L Alkaline Phosphatase (34-104) U/L Troponin I High Sens 15.2 H (0-14) pg/ml Total Protein (6.0-8.3) gm/dl Albumin (3.4-5.0) gm/dl Globulin (2.5-4.0) gm/dl Albumin/Globulin Ratio (0.9-2) Lipase (11-82) U/L Urine Color Urine Appearance (Clear) Urine pH (4.5-7.5) Ur Specific [place] (1.000-1.030) Urine Protein (Negative) Urine Glucose (UA) (Negative) Urine Ketones (Negative) Urine Blood (Negative) Urine Nitrite (Negative) Urine Bilirubin (Negative) Urine Urobilinogen (Negative) Ur Leukocyte Esterase (Negative) Urine WBC (Auto) (0-5) /hpf Urine RBC (Auto) (0-4) /hpf U Hyaline Cast (Auto) (0-5) /lpf U Epithel Cells (Auto) (0-5) /lpf Urine Bacteria (Auto) (Negative) SARS-CoV-2, RNA, NAAT NEGATIVE (NEGATIVE) Administered Medications Discontinued Medications Al Hydrox/Mg Hydrox/Simethicone (Gi Cocktail Ed Use) 1 dose PO ONE ONE Stop: 05/29/22 14:18 Last Admin: 05/29/22 15:24 Dose: 1 dose Documented By: YANET Aspirin (Aspirin Chew 324 Mg) 324 mg PO NOW STA Stop: 05/29/22 17:36 Last Admin: 05/29/22 17:54 Dose: 324 mg Documented By: YANET Sodium Chloride (Nss 1000ml) 1,000 mls @ 999 mls/hr IV .Q1H1M ONE Stop: 05/29/22 15:17 Last Infusion: 05/29/22 16:17 Dose: 0 mls/hr Documented By: Admin: 05/29/22 15:23 Dose: 999 mls/hr Documented By: YANET Ioversol (Ioversol 350 Mg 100ml Prefilled Syringe) 92 ml IV ONCE ONE Stop: 05/29/22 15:59 Last Admin: 05/29/22 15:59 Dose: 92 ml Documented By: [facility] Ondansetron HCl (Ondansetron Inj 2 Mg/Ml 2 Ml Vial) 4 mg IV NOW STA Stop: 05/29/22 14:18 Last Admin: 05/29/22 15:23 Dose: 4 mg Documented By: YANET Imaging Data Radiologist's Impression: Abdomen/Pelvis CT 05/29/22 14:[address] WITH IV CONTRAST CT DOSE: 365.05 mGy.cm HISTORY: epigastric abd pain TECHNIQUE: Multiaxial CT images of the abdomen and pelvis were performed following the use of intravenous contrast. A dose lowering technique was utilized adhering to the principles of ALARA. COMPARISON STUDY: Abdomen and pelvis CT 10/25/2020. FINDINGS: Stable 6 cm subpleural nodular density along the right minor fissure. There are mild dependent changes seen within the lung bases. No pneumoperitoneum. No pneumatosis. No suspicious lytic or blastic osseous lesions. Cholecystectomy. Nodular contour to the liver consistent with cirrhosis. Stable 7 mm hypodense lesion within the left hepatic lobe. This favors a cyst. The spleen remains enlarged measuring 17 cm in length. The adrenal glands, pancreas, and right kidney are unremarkable. There are few punctate left renal calculi. Left peripelvic renal cysts are again noted. No ureteral stones. No hydronephrosis. The main portal vein is patent. Normal caliber abdominal aorta. No retroperitoneal lymphadenopathy. The bladder is unremarkable. Prior hysterectomy. No bowel wall thickening or obstruction. A few colonic diverticula. No evidence for acute diverticulitis. Prior appendectomy. Stable mildly enlarged periportal lymph nodes. This is likely due to the patient's cirrhosis. IMPRESSION: 1. No bowel wall thickening or obstruction. 2. Left-sided nephrolithiasis. No the ureteral stones. No hydronephrosis. 3. Cirrhotic liver with splenomegaly, unchanged. 4. Prior cholecystectomy. ACT 112: Negative or not required by law. Electronically signed by: Gustavo Verdugo M.D. 05/29/2022 4:13 PM Chest X-Ray 05/29/22 14:24 XR chest 1V portable HISTORY: 61 years-old Female cp acute chest pain COMPARISON: Chest radiograph 11/12/2020 TECHNIQUE: AP view of the chest FINDINGS: Cardiac mediastinal and hilar silhouettes are within normal limits. No pneumothorax, pleural effusion, airspace consolidation or overt pulmonary edema. Degenerative changes of the shoulders and spine. IMPRESSION: No acute process. ACT 112: Negative or not required by law. The above report was generated using voice recognition software. It may contain grammatical, syntax or spelling errors. Electronically signed by: Emre Moser M.D. 05/29/2022 2:48 PM Discharge Plan Visit Data Chief Complaint: Abdominal Pain Stated Complaint: CHEST PAIN, ABDOMINAL PAIN ED Provider: Clifford Workman Discharge Problem: Chest pain, Abdominal pain, Back pain, Elevated troponin Forms Stand Alone Forms: [facility] [employer] Prescriptions Prescriptions: No Action losartan 100 mg Tablet 100 mg PO QAM leflunomide 10 mg tablet 10 mg PO UD Rx Instructions: take 5 mg every other day atorvastatin 20 mg tablet 20 mg PO DAILY amlodipine 10 mg tablet 10 mg PO DAILY Referrals Referrals: Jluis Doss DO [Physician] -
--- NOTE | 2022-05-29 14:50 | XRay Report ---
XR chest 1V portable HISTORY: 61 years-old Female cp acute chest pain COMPARISON: Chest radiograph 11/12/2020 TECHNIQUE: AP view of the chest FINDINGS: Cardiac mediastinal and hilar silhouettes are within normal limits. No pneumothorax, pleural effusion , airspace consolidation or overt pulmonary edema. Degenerative changes of the shoulders and spine. IMPRESSION: No acute process. ACT 112: Negative or not required by law. The above report was generated using voice recognition software. It may contain grammatical, syntax o r spelling errors. Electronically signed by: Emre Moser M.D. 05/29/2022 2:48 PM
[2022-05-29 15:36] LABS: Albumin Globulin Ratio 1.5 (0.9-2); Albumin Level 4.9 gm/dl (3.4-5.0); BUN Creatinine Ratio 22.4 (10-20); Bilirubin,Total 0.9 mg/dl (0.2-1.0); Calcium 10.3 mg/dl (8.5-10.1); Creatinine Clr Calc Pharmacy 74.6 ml/min; Est GFR (African American) 99.5 ml/min; Est GFR (Non-African American) 85.9 ml/min; Globulin 3.2 gm/dl (2.5-4.0); Potassium 3.9 mmol/L (3.5-5.1); Total Protein 8.1 gm/dl (6.0-8.3)
[2022-05-29 15:38] LABS: Troponin I High Sensitivity 17.6 pg/ml (0-14)
[2022-05-29 15:46] LABS: Appearance Urine Clear (Clear); Bacteria Urine Automated 1+ (Negative); Bilirubin Urine Negative (Negative); Blood Urine Negative (Negative); Color Urine Dark Yellow; Glucose Urine UA Negative (Negative); Ketones Urine Negative (Negative); Leukocyte Esterase Urine Trace (Negative); Nitrite Urine Negative (Negative); Protein Urine Negative (Negative); RBC Urine Automated 0-4 /hpf (0-4); Specific Gravity Urine 1.025 (1.000-1.030); Urobilinogen Urine Negative (Negative)
[2022-05-29 15:51] LABS: Basophils # (auto) 0.02 K/uL (0-0.2); Basophils % (auto) 0.3 %; Eosinophils # (auto) 0.14 K/uL (0-0.50); Eosinophils % (auto) 1.8 %; Hematocrit (blood only) 45.2 % (34.1-44.9); Hemoglobin 15.2 g/dl (12.0-16.0); Immature Granulocytes # (auto) 0.02 K/uL (0.00-0.02); Immature Granulocytes % (auto) 0.3 %; Lymphocytes # (auto) 1.69 K/uL (1.2-3.4); Lymphocytes % (auto) 21.9 %; Mean Corpuscular Hemoglobin 28.8 pg (25.0-34.0); Mean Corpuscular Hgb Conc 33.6 g/dL (32.0-36.0); Mean Corpuscular Volume 85.6 fL (80.0-100.0); Mean Platelet Volume 9.8 fL (9.4-12.3); Monocytes # (auto) 0.71 K/uL (0.24-0.82); Monocytes % (auto) 9.2 %; Neutrophils # (auto) 5.12 K/uL (1.4-6.5); Neutrophils % (auto) 66.5 %; Platelet Count 141 K/uL (130-400); RDW Coefficient of Variation 12.6 % (11.5-14.5); RDW Standard Deviation 39.4 fL (36.4-46.3); Red Blood Count 5.28 M/uL (3.93-5.22)
[2022-05-29] MEDS ORDERED: IOVERSOL 350 MG 100mL Prefilled Syringe IV ONE (15:58)
--- NOTE | 2022-05-29 16:14 | CT Scan Report ---
ABDOMEN AND PELVIS CT WITH IV CONTRAST CT DOSE: 365.05 mGy.cm HISTORY: epigastric abd pain TECHNIQUE: Multiaxial CT images of the abdomen and pelvis were performed following the use of intrave nous contrast. A dose lowering technique was utilized adhering to the principles of ALARA. COMPARISON STUDY: Abdomen and pelvis CT 10/25/2020. FINDINGS: Stable 6 cm subpleural nodular density along the right minor fissure. There are mild depend ent changes seen within the lung bases. No pneumoperitoneum. No pneumatosis. No suspicious lytic or b lastic osseous lesions. Cholecystectomy. Nodular contour to the liver consistent with cirrhosis. Stab le 7 mm hypodense lesion within the left hepatic lobe. This favors a cyst. The spleen remains enlarge d measuring 17 cm in length. The adrenal glands, pancreas, and right kidney are unremarkable. There a re few punctate left renal calculi. Left peripelvic renal cysts are again noted. No ureteral stones. No hydronephrosis. The main portal vein is patent. Normal caliber abdominal aorta. No retroperitoneal lymphadenopathy. The bladder is unremarkable. Prior hysterectomy. No bowel wall thickening or obstru ction. A few colonic diverticula. No evidence for acute diverticulitis. Prior appendectomy. Stable mi ldly enlarged periportal lymph nodes. This is likely due to the patient's cirrhosis. IMPRESSION: 1. No bowel wall thickening or obstruction. 2. Left-sided nephrolithiasis. No the ureteral stones. No hydronephrosis. 3. Cirrhotic liver with splenomegaly, unchanged. 4. Prior cholecystectomy. ACT 112: Negative or not required by law. Electronically signed by: Gustavo Verdugo M.D. 05/29/2022 4:13 PM
[2022-05-29] MEDS ORDERED: ASPIRIN CHEW 324 MG PO STA (17:35)
--- NOTE | 2022-05-29 18:07 | History & Physical Report ---
Date of Service May 29, 2022 Assessment & Plan (1) Abdominal pain: Plan: Chest pain radiating to left shoulder and wrapping into the back, also with some postprandial abdominal pain. 5 days of symptoms, mostly in the chest and back but does have some abdominal discomfort which is worse after meals - HEART score moderate risk. Both parents with CO in 50s/60s. Patient with some pain radiating to her chest in a bandlike quality. High-sensitivity troponin 17.6, 2 hour repeat pending. - Echo pending - Worse with eating and drinking, some reproducible rib pain CT-A/p: IMPRESSION:1. No bowel wall thickening or obstruction.2. Left-sided nephrolithiasis. No the ureteral stones. No hydronephrosis.3. Cirrhotic liver with splenomegaly, unchanged. 4. Prior cholecystectomy. Patient with history of cholecystectomy Lipase normal Lactate pending EKG without acute ST segment changes Pain improving at time bedside evaluation. We will complete cardiac eval, treat with PPI/H2 for epigastric discomfort? 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 due to liver toxicity is finishing downtitration of leflunomide and is on a half tablet daily Given elevated transaminitis recommend holding at this time, trend CMP, and if improving consider alternative therapy with rheumatology DVT prophylaxis: Lovenox Diet: Heart healthy Disposition: Medical telemetry for cardiac eval CODE STATUS: Full code (2) Obstructive uropathy: (3) Rheumatoid arthritis: (4) UTI (urinary tract infection): (5) History of appendectomy: (6) History of hysterectomy: (7) Hyperlipidemia: (8) GERD (gastroesophageal reflux disease): (9) High blood pressure: History of Present Illness Primary Care Provider: Lynn Charlton MD Ethel is a 61-year-old female with a past medical history of hypertensive urgency, ureteral colic, rheumatoid arthritis, s/p cholecystectomy, s/p appendectomy, s/p hysterectomy who presents to the ER with intermittent chest pain approximately 5 days. Ethel reports that for several days and worsening in the last day she has had increase stress, and has been having episodes of chest pain which is in a bandlike quality across her chest and goes around into her back and shoulder. This is intermittent and she notes that she gets a lot of anxiety, but also thinks she has been short of breath with these episodes. She notes she does get some abdominal pain occasionally with this, and notes symptoms are worsened after meals she has a family history of early cardiac disease with both her parents passing from MIs 1 in their 50s and 1 in their 60s. She reports she has been under additional stress as her rheumatoid arthritis medicine has caused cirrhosis and liver failure and she is working on switching over to HumNeogrowth. She does not have a history of diabetes mellitus, does have a history of hypertension has not taken amlodipine today. She has not had any hand or leg swelling. She does not use tobacco products. She is very anxious about whether her heart could have been damaged either by a heart attack or by her rheumatoid medication, is tearful but consolable at bedside. Er Review: CTA/P: 1. No bowel wall thickening or obstruction. 2. Left-sided nephrolithiasis. No the ureteral stones. No hydronephrosis. 3. Cirrhotic liver with splenomegaly, unchanged. 4. Prior cholecystectomy. CXR: No acute process UA: 1+ bacteria, trace leukocyte esterase AST/ALT/alk phos mildly elevated High-sensitivity troponin mildly elevated 17.6, delta Total bilirubin normal Creatinine normal Medical History: Reviewed Medications: Reviewed Surgical History: Reviewed Allergies: Reviewed Social History: No tobacco product use, no alcohol use. Code Status: Full Code. Surrogate DM would be her daughter [phone] and son [phone](primary contact in chart). Allergies Allergy/AdvReac Type Severity Reaction Status Date / Time sulfamethoxazole Allergy Intermediate ITCHING Verified 05/29/22 15:50 trimethoprim Allergy Intermediate ITCHING Verified 05/29/22 15:50 naproxen AdvReac Intermediate NAUSEA AND Verified 05/29/22 15:50 [id number] Home Medications Medication Instructions Recorded Confirmed Type losartan 100 mg tablet 100 mg PO QAM 01/24/20 05/29/22 History amlodipine 10 mg tablet 10 mg PO DAILY 11/05/20 05/29/22 History atorvastatin 20 mg tablet 20 mg PO DAILY 11/05/20 05/29/22 History leflunomide 10 mg tablet 10 mg PO UD 05/29/22 05/29/22 History Past Med/Surg History Medical History (Updated 05/29/22 @ 17:55 by Mark Sam MD) Chronic cough inhaler for this > rare use > no asthma dx GERD (gastroesophageal reflux disease) High blood pressure Hyperlipidemia IBS (irritable bowel syndrome) Insomnia Kidney stones Migraine Osteoarthritis Rheumatoid arthritis Surgical History H/O endoscopic retrograde cholangiopancreatography History of appendectomy History of cholecystectomy History of colonoscopy History of cystoscopy History of dilatation and curettage History of esophagogastroduodenoscopy (EGD) History of hysterectomy History of lithotripsy History of tooth extraction Social History Smoking Status: Former smoker Second Hand Exposure: No; Hx Alcohol Use: Yes Hx Substance Use: No Preferred Language: Frisian Communication Ability: Effective Inventory Coordinator Required: No Beliefs That Will Affect Care: None marital status: Current Living Situation: Spouse 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 NAD. Cooperative. Tearful but consolable, patient reports she is extremely anxious and worried about her heart. Is mildly hypertensive to 180/90 while tearful, this improves to 160s when more calm HEENT: Atraumatic, normocephalic. Vision/hearing intact Pulm: CTAB A&P. -wheezes, -rales, -rhonchi. Symmetrical chest rise. No increase in work of breathing. No respiratory distress. Cardiac: RRR, -mrg. Radial pulses intact and symmetrical. Abdominal: Nontender, nondistended, soft. BS present. No pain on epigastric palpation at bedside Results & Data Results & Data ([facility]) Vital Signs (Past 12 Hours) Vital Signs Temp Pulse Pulse Resp BP BP Pulse Ox 05/29/22 17:53 78 20 187/90 H 99 05/29/22 15:27 65 20 167/90 H 97 05/29/22 15:27 98 05/29/22 14:54 05/29/22 14:01 36.8 C 67 18 152/82 H 98 O2 Del Method 05/29/22 17:53 Room Air 05/29/22 15:27 Room Air 05/29/22 15:27 Room Air 05/29/22 14:54 Room Air 05/29/22 14:01 Room Air PG Care Time/CCT Total # of Minutes Spent Total Time Spent with Patient: Total time spent is greater than 50% in coordination of care (as documented) at patient's floor/unit and/or counseling patient: Coding Level of Care Code INT OBSERVATION CARE 50M LVL 2 Diagnoses Abdominal pain R10.9 Obstructive uropathy N13.9 Rheumatoid arthritis M06.9 UTI (urinary tract infection) N39.0 History of appendectomy Z90.49 History of hysterectomy Z90.710 Hyperlipidemia E78.5 GERD (gastroesophageal reflux disease) K21.9 High blood pressure I10
[2022-05-29] MEDS ORDERED: ACETAMINOPHEN 325 MG TAB PO PRN (21:45)
[2022-05-29] MEDS ORDERED: amLODIPine BESYLATE 5 MG TAB PO ONE (21:45)
[2022-05-29] MEDS ORDERED: POLYETHYLENE (MIRALAX) 17 GM PACK PO PRN (21:45)
[2022-05-29] MEDS ORDERED: ONDANSETRON INJ 2 MG/ML 2 ML VIAL IV PRN (21:45)
[2022-05-29] MEDS ORDERED: ENOXAPARIN INJ 40 MG/0.4 ML SYR SQ SCH (22:00)
[2022-05-29] MEDS ORDERED: FLUARIX QUADRIVALENT 0.5 ML SYR IM ONE (22:09)
[2022-05-29] MEDS ORDERED: FAMOTIDINE 20 MG in SYRINGE 3 ML IV ONE (22:30)
[2022-05-29] MEDS: PANTOprazole 40 MG TAB PO SCH (22:57)
[2022-05-30 06:18] LABS: BUN Creatinine Ratio 21.9 (10-20); Calcium 9.1 mg/dl (8.5-10.1); Creatinine Clr Calc Pharmacy 77.7 ml/min; Est GFR (African American) 104.5 ml/min; Est GFR (Non-African American) 90.1 ml/min; Potassium 4.2 mmol/L (3.5-5.1)
[2022-05-30 06:20] LABS: Hematocrit (blood only) 39.5 % (34.1-44.9); Hemoglobin 13.1 g/dl (12.0-16.0); Mean Corpuscular Hemoglobin 28.6 pg (25.0-34.0); Mean Corpuscular Hgb Conc 33.2 g/dL (32.0-36.0); Mean Corpuscular Volume 86.2 fL (80.0-100.0); Mean Platelet Volume 10.1 fL (9.4-12.3); Platelet Count 114 K/uL (130-400); RDW Coefficient of Variation 12.7 % (11.5-14.5); RDW Standard Deviation 39.9 fL (36.4-46.3); Red Blood Count 4.58 M/uL (3.93-5.22); White Blood Count 5.88 K/ul (4.8-10.8)
[2022-05-30 06:21] LABS: Basophils # (auto) 0.02 K/uL (0-0.2); Basophils % (auto) 0.3 %; Eosinophils # (auto) 0.12 K/uL (0-0.50); Immature Granulocytes # (auto) 0.02 K/uL (0.00-0.02); Immature Granulocytes % (auto) 0.3 %; Lymphocytes # (auto) 1.85 K/uL (1.2-3.4); Lymphocytes % (auto) 31.5 %; Monocytes # (auto) 0.51 K/uL (0.24-0.82); Monocytes % (auto) 8.7 %; Neutrophils # (auto) 3.36 K/uL (1.4-6.5); Neutrophils % (auto) 57.2 %; Platelet Estimate Decreased (Normal)
[2022-05-30] MEDS: PANTOprazole 40 MG TAB PO SCH (07:53)
[2022-05-30] MEDS ORDERED: LOSARTAN POTASSIUM 50 MG TAB PO SCH (09:00)
[2022-05-30] MEDS ORDERED: ATORVASTATIN 20 MG TAB PO SCH (09:00)
[2022-05-30] MEDS ORDERED: FAMOTIDINE 20 MG in SYRINGE 3 ML IV SCH (09:00)
--- NOTE | 2022-05-30 13:40 | Discharge Summary ---
Date of Service May 30, 2022 Admission HPI Per Admitting Provider Ethel is a 61-year-old female with a past medical history of hypertensive urgency, ureteral colic, rheumatoid arthritis, s/p cholecystectomy, s/p appendectomy, s/p hysterectomy who presents to the ER with intermittent chest pain approximately 5 days. Ethel reports that for several days and worsening in the last day she has had increase stress, and has been having episodes of chest pain which is in a bandlike quality across her chest and goes around into her back and shoulder. This is intermittent and she notes that she gets a lot of anxiety, but also thinks she has been short of breath with these episodes. She notes she does get some abdominal pain occasionally with this, and notes symptoms are worsened after meals she has a family history of early cardiac disease with both her parents passing from MIs 1 in their 50s and 1 in their 60s. She reports she has been under additional stress as her rheumatoid arthritis medicine has caused cirrhosis and liver failure and she is working on switching over to Humira. She does not have a history of diabetes mellitus, does have a history of hypertension has not taken amlodipine today. She has not had any hand or leg swelling. She does not use tobacco products. She is very anxious about whether her heart could have been damaged either by a heart attack or by her rheumatoid medication, is tearful but consolable at bedside. Er Review: CTA/P: 1. No bowel wall thickening or obstruction. 2. Left-sided nephrolithiasis. No the ureteral stones. No hydronephrosis. 3. Cirrhotic liver with splenomegaly, unchanged. 4. Prior cholecystectomy. CXR: No acute process UA: 1+ bacteria, trace leukocyte esterase AST/ALT/alk phos mildly elevated High-sensitivity troponin mildly elevated 17.6, delta Total bilirubin normal Creatinine normal Medical History: Reviewed Medications: Reviewed Surgical History: Reviewed Allergies: Reviewed Social History: No tobacco product use, no alcohol use. Code Status: Full Code. Surrogate DM would be her daughter [phone] and son [phone](primary contact in chart). Admission Exam Per Admitting Provider General: A&Ox3. NAD. Cooperative. Tearful but consolable, patient reports she is extremely anxious and worried about her heart. Is mildly hypertensive to 180/90 while tearful, this improves to 160s when more calm HEENT: Atraumatic, normocephalic. Vision/hearing intact Pulm: CTAB A&P. -wheezes, -rales, -rhonchi. Symmetrical chest rise. No increase in work of breathing. No respiratory distress. Cardiac: RRR, -mrg. Radial pulses intact and symmetrical. Abdominal: Nontender, nondistended, soft. BS present. No pain on epigastric palpation at bedside Principal Diagnosis Costochondritis Discharge Exam General: No acute distress, pleasant HEENT: Atraumatic, normocephalic. Vision/hearing intact Resp: CTAB A&P. -wheezes, -rales, -rhonchi. Symmetrical chest rise. No increase in work of breathing. No respiratory distress. Cardiac: RRR, normal S1, S2, no murmurs Abdominal: Nontender, nondistended, soft. BS present. MSK: reproducible chest pain with palpation of sternum, no clearly identifiable trigger points Discharge Data Allergies Allergy/AdvReac Type Severity Reaction Status Date / Time sulfamethoxazole Allergy Intermediate ITCHING Verified 05/29/22 15:50 trimethoprim Allergy Intermediate ITCHING Verified 05/29/22 15:50 naproxen AdvReac Intermediate NAUSEA AND Verified 05/29/22 15:50 VOMITNNG Ordered Studies 05/29/22 14:17 CT Abd and Pelvis [CT abd pelvis IV con only] Stat Hospital Course (1) Chest pain: Pt admitted to hospital on 05/29 for chest pain Chest pain -Troponin HS 17.6 to 15.2, EKG wnl -Echocardiogram unremarkable except for mild LVOT, grade 1 diastolic dysfunction -Lipase normal, lactate normal -CTAP No bowel wall thickening or obstruction Left-sided nephrolithiasis. No the ureteral stones. No hydronephrosis Cirrhotic liver with splenomegaly, unchanged. -Given pt's recent stress over family issues between /son, suspect there is an element of anxiety driving the pain -Chest pain resolved shortly after admission with only residual soreness when palpated per pt and MD -Negative cardiac workup with reproducible chest pain (though pt denies recent illnesses), suspect chest pain due to costochondritis -Due to mildly elevated troponin and strong FMH of AR in both parents, recommend pt receive stress testing as outpatient Transaminitis, cirrhosis secondary leflunomide toxicity from rheumatoid arthritis treatment CT with cirrhotic appearance, unchanged from prior - AST 60, ALT 78 on admission, liver panel otherwise wnl - Pt in midst of switching from leflunomide to Goldie for liver toxicity -Pt may not necessarily need to gradually taper off leflunomide and may be able to stop it outright -Of note, this will help protect pt from further liver injury in the background of cirrhosis as an adverse effect of treatment -Recommend PCP f/u coordinating with outpatient GI and rheumatology on discontinuing this medication safely (2) Rheumatoid arthritis: Total Time Total Time Spent Total Time Spent (In Minutes): >30 Discharge Plan Discharge Items Patient Disposition: Home - Self-Care Reason For Visit: CHEST PAIN, ABDOMINAL PAIN. MODERATE HEART SCORE Discharge Diagnosis: Costochondritis Activity: Resume your previous activity Non-emergency contact: Primary Care Provider Call non-emergency contact if: you have any medication questions, your symptoms worsen and your pain is worsening Follow-up/Referrals: Lynn Charlton MD [Primary Care Provider] - Diet: Regular Addtl Attending Provider Instructions: You were admitted to the hospital for evaluation of chest pain. Our workup for heart-related causes of the chest pain was negative. Your pain, especially since it is reproducible by pressing on your chest, is most likely due to costochondritis, an inflammation of the cartilage that connects your ribs to the sternum/breastbone. This usually follows a viral illness. However, it is also common in people with a history of rheumatoid arthritis. This will resolve with time and NSAIDs such as ibuprofen do provide relief of the symptoms. Although your chest pain is not cardiac in origin, we do think it would be useful to get a cardiac stress test as an outpatient. Due to a family history of heart disease and the fact that your heart enzymes were slightly elevated, it would be a good idea to rule out any coronary disease which can be accomplished with a stress test. Please ask your PCP about setting this up. A discharge summary will be sent to your primary care physician to ensure continuity of care. Please bring this discharge summary with you to your next office appointment so that your provider can review it at that time. Follow-up appointments: Make a follow-up appointment with your PCP within the next week. It is very important that you follow up with them shortly after discharge from the hospital. Medications: Your medication list has been reviewed and reconciled upon discharge to ensure accuracy and continuity of care. An updated list of all your medications is included with your hospital discharge paperwork. Please review this list closely, and make note of any changes. Take your medications as instructed; do not skip a dose of your medicines. Make sure all of your doctors know every medicine you are taking (including ckya-duo-scusmsi medicines, vitamins, and supplements). Call your primary care provider before taking any new medici miguel (including yszg-iga-gffmprq medicines, vitamins, and supplements), because some of these may interact with your current medications, or may make your symptoms worse. Tell your primary care provider if you cannot afford your medications. CONTACT YOUR PRIMARY CARE PROVIDER if you experience any of the following: Worsening chest pain Difficulty breathing Nausea/vomiting Abdominal pain Palpitations Difficulty following your treatment plan, or difficulty taking medications CALL 911 OR GO TO THE EMERGENCY DEPARTMENT if you experience any of the following: Sudden, severe abdominal pain or nausea/vomiting Severe chest pain, or chest pain that radiates (moves) to your jaw or arm Sudden, severe shortness of breath or difficulty breathing Thank you for allowing us to participate in your care. Pending Studies at Discharge: No Stand-Alone Forms: My [facility] Medications and DC Order Prescriptions: Continued losartan 100 mg Tablet 100 mg PO QAM leflunomide 10 mg tablet 10 mg PO UD Rx Instructions: take 5 mg every other day atorvastatin 20 mg tablet 20 mg PO DAILY amlodipine 10 mg tablet 10 mg PO DAILY Discharge Orders: Discharge Order (Routine); Ordered 05/30/22 Ordered By: Yolanda Fraga Admission Data Admit Date/Time: 05/29/22 18:06 Attending Provider: Clifford Crow Admit Provider: Mark Sam Primary Care Provider: Lynn Charlton Other Providers: Mark Sam Other Interventions: Discharge Summary Assessment (RN) Last Done: 05/30/22 15:35 Supervising Physician Co-Signing Physician Notes I personally examined the patient and verified all grewal points of history and exam, discussed case, and agree with decision making with Dr Fraga. Feeling better and would very much like to go home. Extensive discussions on chest painthe high likelihood that it is musculoskeletal with an anxiety overlayshe agrees that is most likely the case. Also discussed with her not negative troponin, that while it is likely a false positive, particularly in light of her reassuring echo, its not unreasonable to pursue outpatient stress testing for thoroughness/completeness. Discussed diet extensively as it relates to cirrhosis, particularly focusing on diet changes that may help mitigate any type of nonalcoholic fatty liver influence on this. Also discussed leflunomide being a medication that tends to have enterohepatic recycling and therefore can stay in one system for quite a whileto that end reached out to the patient's site lead to ensure that if they truly felt the leflunomide was culprit that they could coordinate with rheumatology on either more rapid cessation or even a washout with something such as cholestyramine. Vitals noted, in general she is awake and alert pleasant no distress. HEENT normocephalic atraumatic mucous membranes moist. Breathing unlabored no accessory muscle use good effort. Skin shows no rashes no pallor or icterus. Neuro without focal deficits. Chest painmost likely musculoskeletal with an overlay of anxiety. Suspect her troponin is truly just a false positive, particularly with a history that fits more with ribs and stress, as well as a reassuring echo. At the same time, outpatient stress testing reasonable, particularly given the patient's anxiety about her family history. Cirrhosisextensive discussion on lifestyle factors she could change to mitigate any amount of nonalcoholic fatty liver that may be perpetuating her cirrhosis, also discussed and then reached out to her site lead to ensure that if the patient's history that it is predominantly related to her leflunomide is correct, that GI can coordinate with rheumatology about truly eliminating the leflunomide and/or washing it out to eliminate faster if necessary. Otherwise as above Resident Activity Tracking Resident Involvement: Resident Care Provided Care Provided: Adult [facility]
--- NOTE | 2022-05-30 14:45 | Electrocardiogram Report ---
Test Reason : Blood Pressure : / mmHG Vent. Rate : 060 BPM Atrial Rate : 060 BPM P-R Int : 130 ms QRS Dur : 088 ms QT Int : 440 ms P-R-T Axes : 031 061 073 degrees QTc Int : 440 ms Normal sinus rhythm Normal ECG When compared with ECG of 15-MAR-2020 06:30, QT has shortened Confirmed by Shaka Davidson ([id number]) on 05/30/2022 2:45:32 PM Referred By: Confirmed By:Shaka Davidson
--- NOTE | 2022-05-30 15:12 | XCELERA ---
[id number]
--- NOTE | 2022-05-30 17:35 | Billing Data ---
Date of Service May 30, 2022 Coding Level of Care Code 04292 OBS Care - Discharge
== END 2022-05-30 16:16 | disposition home or self-care (01) ==
LOC: 4W 13:48 → ED 13:48 → SUATTDRO 18:06 → 4W 20:46
DX: Z88.2 Allergy status to sulfonamides; R74.01 Elevation of levels of liver transaminase levels; M94.0 Chondrocostal junction syndrome [Tietze]; E78.5 Hyperlipidemia, unspecified; Z87.891 Personal history of nicotine dependence; Z90.710 Acquired absence of both cervix and uterus; Z88.6 Allergy status to analgesic agent; K74.60 Unspecified cirrhosis of liver; I10 Essential (primary) hypertension; Z79.899 Other long term (current) drug therapy; M06.9 Rheumatoid arthritis, unspecified

== ENCOUNTER 2022-10-29 21:23 | Inpatient (IN) ==
[2022-10-29 22:17] LABS: Basophils # (auto) 0.02 K/uL (0-0.2); Basophils % (auto) 0.1 %; Eosinophils # (auto) 0.09 K/uL (0-0.50); Eosinophils % (auto) 0.7 %; Hematocrit (blood only) 39.7 % (37.0-47.0); Hemoglobin 13.4 g/dl (12.0-16.0); Immature Granulocytes # (auto) 0.06 K/uL (0.01-0.20); Immature Granulocytes % (auto) 0.4 %; Lymphocytes # (auto) 1.75 K/uL (1.2-3.4); Lymphocytes % (auto) 12.8 %; Mean Corpuscular Hemoglobin 29.1 pg (25.0-34.0); Mean Corpuscular Hgb Conc 33.8 g/dL (32.0-36.0); Mean Corpuscular Volume 86.1 fL (80.0-100.0); Mean Platelet Volume 9.7 fL (9.4-12.4); Monocytes # (auto) 1.09 K/uL (0.11-0.59); Neutrophils # (auto) 10.62 K/uL (1.40-6.50); Platelet Count 153 K/uL (130-400); RDW Coefficient of Variation 12.9 % (11.5-14.5); RDW Standard Deviation 39.9 fL (36.4-46.3); Red Blood Count 4.61 M/uL (4.20-5.40); White Blood Count 13.63 K/ul (4.8-10.8)
[2022-10-29 22:37] LABS: Albumin Globulin Ratio 1.3 (0.9-2); Albumin Level 4.5 gm/dl (3.4-5.0); BUN Creatinine Ratio 24.3 (10-20); Bilirubin,Total 0.9 mg/dl (0.2-1.0); Calcium 9.8 mg/dl (8.5-10.1); Est GFR (African American) 68.4 ml/min; Globulin 3.6 gm/dl (2.5-4.0); Potassium 4.1 mmol/L (3.5-5.1); Total Protein 8.1 gm/dl (6.0-8.3)
[2022-10-29] MEDS ORDERED: ONDANSETRON INJ 2 MG/ML 2 ML VIAL IV STA (22:52)
[2022-10-29] MEDS ORDERED: MoRPHine SULFATE 4 MG/ML 1 ML CARP\\VIAL IV STA (22:52)
--- NOTE | 2022-10-29 22:58 | Emergency Department Note ---
History of Present Illness General Chief complaint: Leg Injury/Pain Stated complaint: L LEG UNABLE TO STAND,PAIN, Time Seen by Provider: 10/29/22 22:39 Source: patient, family (Daughter who is at the bedside) and RN notes reviewed Mode of arrival: ambulatory Limitations: no limitations History of Present Illness Maximum Pain Intensity: 10 This patient is a 62-year-old female who comes in with severe left groin pain. It started this morning got progressively worse no injury. she is on Humira for RA. she points to the area in the groin below the inguinal crease more medially. She does not have pain in the hip very much she says. No fall or trauma no history of similar no history of blood clots is on no blood thinner no nausea vomiting or systemic complaints she is on her second last day of amoxicillin laura t she has been taking for sinus infection that has gotten significantly better she has minimal headache only. No chest pain shortness of breath, lightheadedness or dizziness. She said she had multiple we will help her walk Home Medications Medication Instructions Recorded Confirmed Type losartan 100 mg tablet 100 mg PO QAM 01/24/20 10/30/22 History atorvastatin 20 mg tablet 20 mg PO DAILY 11/05/20 10/30/22 History adalimumab 40 mg/0.8 mL 40 mg subcut UD 10/30/22 10/30/22 History subcutaneous pen kit (Humira Pen) amoxicillin 875 mg-potassium 1 tab PO AMHS 10/30/22 10/30/22 History clavulanate 125 mg tablet omeprazole 20 mg capsule,delayed 20 mg PO QAM 10/30/22 10/30/22 History release Allergies Allergy/AdvReac Type Severity Reaction Status Date / Time sulfamethoxazole Allergy Intermediate ITCHING Verified 05/29/22 15:50 trimethoprim Allergy Intermediate ITCHING Verified 05/29/22 15:50 naproxen AdvReac Intermediate NAUSEA AND Verified 05/29/22 15:50 VOMITNNG Past Med/Surg History Medical History Chronic cough inhaler for this > rare use > no asthma dx GERD (gastroesophageal reflux disease) High blood pressure Hyperlipidemia IBS (irritable bowel syndrome) Insomnia Kidney stones Migraine Osteoarthritis Rheumatoid arthritis Surgical History H/O endoscopic retrograde cholangiopancreatography History of appendectomy History of cholecystectomy History of colonoscopy History of cystoscopy History of dilatation and curettage History of esophagogastroduodenoscopy (EGD) History of hysterectomy History of lithotripsy History of tooth extraction Social History Smoking Status: Former smoker Second Hand Exposure: No; Hx Alcohol Use: No Hx Substance Use: No Preferred Language: Brazilian Communication Ability: Effective Wire Welder Required: No Beliefs That Will Affect Care: None marital status: Current Living Situation: Spouse 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 at Home: Yes Assistive Devices: Glasses Review of Systems A total of 10 systems reviewed and were otherwise negative Physical Exam Vital Signs Vital Signs - 24 hr 10/29/22 21:28 10/29/22 22:28 10/30/22 01:35 Temperature 38.5 C H Temperature Source Temporal Artery Scan Pulse Rate 99 H Pulse Rate [Finger] 94 H 86 Pulse Rhythm [Finger] Regular Pulse Strength [Finger] Normal Respiratory Rate 20 22 18 Respiratory Effort / Characteristics Non-Labored Spontaneous Non-Labored Spontaneous Non-Labored Spontaneous Respiratory Depth Normal Normal Normal Respiratory Pattern Regular Regular Blood Pressure 143/78 H Blood Pressure [Left Arm] 161/96 H 126/70 Blood Pressure Mean 99 Blood Pressure Mean [Left Arm] 117 88 Blood Pressure Position [Left Arm] Sitting Semi-fowlers Pulse Oximetry 96 96 97 Oxygen Delivery Method Room Air Room Air Nasal Cannula Oxygen Flow Rate 2 Sepsis Recent Fever Within 48 Hours No Sepsis New/Unexplained Change in Mental Status N/A Sepsis Action Taken by Nursing No Action Required General: Well developed well nourished middle-age female that appears uncomfortable secondary to pain in no acute distress, breathing comfortably on room air. Normal speech HEENT: Normal cephalic atraumatic. Pupils are equal round and reactive to ligh t. Extraocular movements are intact. Oropharynx is pink with moist mucous membranes. No swelling of the mouth lips or tongue. Neck: Supple with a midline trachea. No meningeal signs or stiffness, no JVD or bruits. No Stridor. Chest: Clear to auscultation bilaterally. No wheezes or rhonchi. No increased work of breathing. Heart: Regular rate and rhythm without murmurs or gallops. Abdomen: Soft nontender, nondistended without rebound guarding or rigidity. In the left groin she is tender below the inguinal crease medially I do not see any redness warmth or swelling. The joint laterally is not significantly tender. Extremities: No cyanosis clubbing or edema. No calf tenderness or assymetry. The left extremities has normal distal pulses and normal motor and sensation it is warm and well-perfused with good capillary refill. She is holding her knee flexed and the hip flexed as well and says she cannot move it hurts so much. Spine/Back. Non tender to palpation. No CVA tenderness Skin: Good turgor without rashes. Neurologic exam: Cranial nerves two through 12 are intact. Motor and sensation are intact and symmetrical throughout. Course Administered Medications Discontinued Medications Hydromorphone HCl (Hydromorphone Inj 1 Mg/Ml Syringe) 1 mg IV NOW STA Stop: 10/29/22 23:58 Last Admin: 10/30/22 00:02 Dose: 1 mg Documented By: JORDAN Sodium Chloride (Nss 1000ml) 1,000 mls @ 999 mls/hr IV .Q1H1M ONE Stop: 10/30/22 00:57 Last Admin: 10/30/22 00:04 Dose: 999 mls/hr Documented By: JORDAN Cefepime HCl (Maxipime) 2,000 mg in 20 mls @ 5 mls/min IV NOW STA Stop: 10/30/22 01:11 Last Admin: 10/30/22 01:34 Dose: 5 mls/min Documented By: Ioversol (Optiray 350 100ml) 100 ml IV ONCE ONE Stop: 10/30/22 00:57 Last Admin: 10/30/22 00:56 Dose: 85 ml Documented By: LORRAINE Morphine Sulfate (Morphine Sulfate 4 Mg/Ml 1 Ml Carp\Vial) 4 mg IV NOW STA Stop: 10/29/22 22:53 Last Admin: 10/29/22 23:08 Dose: 4 mg Documented By: Ondansetron HCl (Ondansetron Inj 2 Mg/Ml 2 Ml Vial) 4 mg IV NOW STA Stop: 10/29/22 22:53 Last Admin: 10/29/22 23:09 Dose: 4 mg Documented By: Medical Decision Making Differential Diagnosis Infection, abscess, cellulitis, side effect from medication, RA flare, DVT, vascular compromise, arterial compromise, septic joint Medical Records Attestation: I reviewed the patient's medical records. Home Medications Current Medication List: was personally reviewed by me Laboratory Data Attestation: I reviewed the patient's lab results. 10/29/22 21:50 10/29/22 21:50 Lab Results 10/29/22 10/29/22 10/29/22 Range/Units 21:50 21:50 21:50 WBC 13.63 H (4.8-10.8) K/ul RBC 4.61 (4.20-5.40) M/uL Hgb 13.4 (12.0-16.0) g/dl Hct 39.7 (37.0-47.0) % MCV 86.1 (80.0-100.0) fL MCH 29.1 (25.0-34.0) pg MCHC 33.8 (32.0-36.0) g/dL RDW Std Deviation 39.9 (36.4-46.3) fL RDW Coeff of Rad 12.9 (11.5-14.5) % Plt Count 153 (130-400) K/uL MPV 9.7 (9.4-12.4) fL Immature Gran % (Auto) 0.4 % Neut % (Auto) 78.0 % Lymph % (Auto) 12.8 % Posey % (Auto) 8.0 % Eos % (Auto) 0.7 % Baso % (Auto) 0.1 % Neut # (Auto) 10.62 H (1.40-6.50) K/uL Lymph # (Auto) 1.75 (1.2-3.4) K/uL Posey # (Auto) 1.09 H (0.11-0.59) K/uL Eos # (Auto) 0.09 (0-0.50) K/uL Baso # (Auto) 0.02 (0-0.2) K/uL Immature Gran # (Auto) 0.06 (0.01-0.20) K/uL ESR 30 (0-30) mm/hr Sodium 137 (136-145) mmol/L Potassium 4.1 (3.5-5.1) mmol/L Chloride 106 (98-107) mmol/L Carbon Dioxide 21 (21-32) mmol/L Anion Gap 10 (3-11) BUN 25 H (6-23) mg/dl Creatinine 1.03 (0.6-1.2) mg/dl Est Cr Clr Drug Dosing 59.0 ml/min Est GFR ( Amer) 68.4 ml/min Est GFR (Non-Af Amer) 59.0 ml/min BUN/Creatinine Ratio 24.3 H (10-20) Glucose 128 H (70-99(Fasting)) mg/dl Lactate (0.4-2.0) mmol/L Calcium 9.8 (8.5-10.1) mg/dl Total Bilirubin 0.9 (0.2-1.0) mg/dl AST 69 H (13-39) U/L ALT 57 H (7-52) U/L Alkaline Phosphatase 200 H (34-104) U/L C-Reactive Protein 0.88 H (0-0.5) mg/dl Total Protein 8.1 (6.0-8.3) gm/dl Albumin 4.5 (3.4-5.0) gm/dl Globulin 3.6 (2.5-4.0) gm/dl Albumin/Globulin Ratio 1.3 (0.9-2) Procalcitonin (0-0.5) ng/ml 10/29/22 10/29/22 Range/Units 21:50 23:21 WBC (4.8-10.8) K/ul RBC (4.20-5.40) M/uL Hgb (12.0-16.0) g/dl Hct (37.0-47.0) % MCV (80.0-100.0) fL MCH (25.0-34.0) pg MCHC (32.0-36.0) g/dL RDW Std Deviation (36.4-46.3) fL RDW Coeff of Rad (11.5-14.5) % Plt Count (130-400) K/uL MPV (9.4-12.4) fL Immature Gran % (Auto) % Neut % (Auto) % Lymph % (Auto) % Posey % (Auto) % Eos % (Auto) % Baso % (Auto) % Neut # (Auto) (1.40-6.50) K/uL Lymph # (Auto) (1.2-3.4) K/uL Posey # (Auto) (0.11-0.59) K/uL Eos # (Auto) (0-0.50) K/uL Baso # (Auto) (0-0.2) K/uL Immature Gran # (Auto) (0.01-0.20) K/uL ESR (0-30) mm/hr Sodium (136-145) mmol/L Potassium (3.5-5.1) mmol/L Chloride (98-107) mmol/L Carbon Dioxide (21-32) mmol/L Anion Gap (3-11) BUN (6-23) mg/dl Creatinine (0.6-1.2) mg/dl Est Cr Clr Drug Dosing ml/min Est GFR ( Amer) ml/min Est GFR (Non-Af Amer) ml/min BUN/Creatinine Ratio (10-20) Glucose (70-99(Fasting)) mg/dl Lactate 1.0 (0.4-2.0) mmol/L Calcium (8.5-10.1) mg/dl Total Bilirubin (0.2-1.0) mg/dl AST (13-39) U/L ALT (7-52) U/L Alkaline Phosphatase (34-104) U/L C-Reactive Protein (0-0.5) mg/dl Total Protein (6.0-8.3) gm/dl Albumin (3.4-5.0) gm/dl Globulin (2.5-4.0) gm/dl Albumin/Globulin Ratio (0.9-2) Procalcitonin 0.05 (0-0.5) ng/ml Imaging Data Attestation: I personally reviewed and interpreted this imaging study as follows: My Impression: Pelvis x-ray with left hip: Radiologist's Impression: Abdomen/Pelvis CT 10/29/22 23:57 Exam(s): CT ABDOMEN + PELVIS With Contrast IV Amt: 85 ml optiray 350 EXAM: CT Abdomen and Pelvis With Intravenous Contrast CLINICAL HISTORY: Reason for exam: left groin pain. TECHNIQUE: Axial computed tomography images of the abdomen and pelvis with intravenous contrast. Automated exposure control was utilized for the study. A dose lowering technique was utilized adhering to the principles of ALARA. CONTRAST: Patient received 85 ml optiray 350 of IV contrast COMPARISON: No relevant prior studies available. FINDINGS: Lung bases: Unremarkable. No mass. No consolidation. ABDOMEN: Liver: Early hepatic cirrhosis. Splenomegaly. Cholecystectomy. Gallbladder and bile ducts: See above. Pancreas: Unremarkable. No mass. No ductal dilation. Spleen: See above. Adrenals: Unremarkable. No mass. Kidneys and ureters: Unremarkable. No hydronephrosis or delayed nephrogram. Stomach and bowel: Unremarkable. No obstruction. No mucosal thickening. PELVIS: Appendix: Appendectomy. Bladder: Unremarkable. No mass. Reproductive: Hysterectomy. ABDOMEN and PELVIS: Intraperitoneal space: Unremarkable. No free air. No significant fluid collection. Bones/joints: Degenerative changes of the spine. No acute fracture. No dislocation. Soft tissues: Unremarkable. Vasculature: Unremarkable. No abdominal aortic aneurysm. Lymph nodes: Unremarkable. No enlarged lymph nodes. IMPRESSION: 1. Early hepatic cirrhosis. Splenomegaly. Cholecystectomy. 2. Appendectomy. Electronically signed by: Christopher Milan MD 10/30/22 01:[address] 10/29/22 23:57 Exam(s): CT EXTREMITY LEFT LOWER With Contrast IV Amt: 85 ml optiray 350 EXAM: CT Left Lower Extremity With Intravenous Contrast CLINICAL HISTORY: Reason for exam: left thigh pain. TECHNIQUE: Axial computed tomography images of the left lower extremity with intravenous contrast. Automated exposure control was utilized for the study. A dose lowering technique was utilized adhering to the principles of ALARA. CONTRAST: Patient received 85 ml optiray 350 of IV contrast COMPARISON: No relevant prior studies available. FINDINGS: Bones/joints: Left hip joint effusion. Consider left hip MRI if clinically indicated. No acute fracture. No dislocation. Soft tissues: Unremarkable. No abnormal contrast enhancement. IMPRESSION: Left hip joint effusion. Consider left hip MRI if clinically indicated. Electronically signed by: Christopher Milan MD 10/30/22 01:54 AM [facility] Narrative This patient comes in as described above. She appears very uncomfortable, particular she tries to move the hip. It seems this more in the pelvis. No trauma. Distally in the foot, she appears to be neurologically neurovascular intact and she does have a palpable bounding pulse on that side. I do not think is likely arterial. There is no redness or warmth and she does have fever and elevated white count. I did add inflammatory markers and blood cultures. I did give her morphine 4 mg IV and Zofran 4 mg IV initially, she is difficult to assess as she is in so much pain and cannot move her leg. Her white count was elevated although her other inflammatory markers are not significantly elevated. she has no significant electrolyte or metabolic abnormalities. She did require additional pain medication was given Dilaudid 1 mg IV and seems much more comfortable. I did CAT scans of the pelvis and femur and there is no abscess or subcutaneous air. She does have an effusion on the left hip and is possible she could have a septic hip or hip infection. She was given cefepime 2 g IV in the ED. I do think she will need to be admitted for further treatment and evaluation. I have consulted Dr. Scott and his resident to see the patient she will likely need to be seen by orthopedics as well while she is in the hospital .she will need further work-u.p Impression & Plan Acute pain of left hip, Rheumatoid arthritis, Immunocompromised, Effusion of hip joint, left, Lab test negative for COVID-19 virus Discharge Plan Visit Data Chief Complaint: Leg Injury/Pain Stated Complaint: L LEG UNABLE TO STAND,PAIN, ED Provider: Ezio Funes Discharge Problem: Acute pain of left hip, Rheumatoid arthritis, Immunocompromised, Effusion of hip joint, left, Lab test negative for COVID-19 virus Forms Stand Alone Forms: My [facility] Prescriptions Prescriptions: No Action losartan 100 mg Tablet 100 mg PO QAM leflunomide 10 mg tablet 10 mg PO UD Rx Instructions: take 5 mg every other day omeprazole 20 mg capsule,delayed release(DR/EC) 20 mg PO QAM amoxicillin-pot clavulanate 875-125 mg tablet 1 tab PO AMHS Humira Pen 40 mg/0.8 mL pen injector kit 40 mg SUBCUT UD atorvastatin 20 mg tablet 20 mg PO DAILY amlodipine 10 mg tablet 10 mg PO DAILY Referrals Referrals: Lnyn Charlton MD [Primary Care Provider] -
[2022-10-29 23:44] LABS: C Reactive Protein 0.88 mg/dl (0-0.5)
[2022-10-29] MEDS ORDERED: SODIUM CHLORIDE 0.9% 1000ML 1,000 ML IV ONE (23:57)
[2022-10-29] MEDS ORDERED: HYDROmorphone INJ 1 MG/ML SYRINGE IV STA (23:57)
[2022-10-30] MEDS ORDERED: OPTIRAY 350 100ml IV ONE (00:56)
[2022-10-30] MEDS ORDERED: CEFEPIME 2,000 MG/20 ML VIAL IV STA (01:08)
--- NOTE | 2022-10-30 01:41 | CT Scan Report ---
Exam(s): CT ABDOMEN + PELVIS With Contrast IV Amt: 85 ml optiray 350 EXAM: CT Abdomen and Pelvis With Intravenous Contrast CLINICAL HISTORY: Reason for exam: left groin pain. TECHNIQUE: Axial computed tomography images of the abdomen and pelvis with intravenous contrast. Automated exposure control was utilized for the study. A dose lowering technique was utilized adhering to the principles of ALARA. CONTRAST: Patient received 85 ml optiray 350 of IV contrast COMPARISON: No relevant prior studies available. FINDINGS: Lung bases: Unremarkable. No mass. No consolidation. ABDOMEN: Liver: Early hepatic cirrhosis. Splenomegaly. Cholecystectomy. Gallbladder and bile ducts: See above. Pancreas: Unremarkable. No mass. No ductal dilation. Spleen: See above. Adrenals: Unremarkable. No mass. Kidneys and ureters: Unremarkable. No hydronephrosis or delayed nephrogram. Stomach and bowel: Unremarkable. No obstruction. No mucosal thickening. PELVIS: Appendix: Appendectomy. Bladder: Unremarkable. No mass. Reproductive: Hysterectomy. ABDOMEN and PELVIS: Intraperitoneal space: Unremarkable. No free air. No significant fluid collection. Bones/joints: Degenerative changes of the spine. No acute fracture. No dislocation. Soft tissues: Unremarkable. Vasculature: Unremarkable. No abdominal aortic aneurysm. Lymph nodes: Unremarkable. No enlarged lymph nodes. IMPRESSION: 1. Early hepatic cirrhosis. Splenomegaly. Cholecystectomy. 2. Appendectomy. Electronically signed by: Christopher Milan MD 10/30/22 01:40 AM
--- NOTE | 2022-10-30 01:56 | CT Scan Report ---
Exam(s): CT EXTREMITY LEFT LOWER With Contrast IV Amt: 85 ml optiray 350 EXAM: CT Left Lower Extremity With Intravenous Contrast CLINICAL HISTORY: Reason for exam: left thigh pain. TECHNIQUE: Axial computed tomography images of the left lower extremity with intravenous contrast. Automated exposure control was utilized for the study. A dose lowering technique was utilized adhering to the principles of ALARA. CONTRAST: Patient received 85 ml optiray 350 of IV contrast COMPARISON: No relevant prior studies available. FINDINGS: Bones/joints: Left hip joint effusion. Consider left hip MRI if clinically indicated. No acute fracture. No dislocation. Soft tissues: Unremarkable. No abnormal contrast enhancement. IMPRESSION: Left hip joint effusion. Consider left hip MRI if clinically indicated. Electronically signed by: Christopher Milan MD 10/30/22 01:54 AM
[2022-10-30] MEDS ORDERED: KETOROLAC TROMETHAMINE 15 MG/ML VIAL IV ONE (02:34)
[2022-10-30] MEDS ORDERED: DICLOFENAC SOD 1% GEL 100 GM TUBE EXT ONE (02:50)
[2022-10-30 03:17] LABS: Influenza A virus by PCR Negative (Neg); Influenza B virus by PCR Negative (Neg); RSV by PCR Negative (Neg); SARS CoV2 RNA(COVID-19) Ceph NEGATIVE (Negative)
[2022-10-30] MEDS ORDERED: KETOROLAC 30 MG/ML VIAL IV ONE ×2 (04:15→16:29)
[2022-10-30] MEDS ORDERED: HYDROmorphone INJ 1 MG/ML SYRINGE IV STA (04:15)
[2022-10-30] MEDS ORDERED: VANCOMYCIN CONSULT ACTIVE PRN (04:20)
[2022-10-30] MEDS ORDERED: VANCOMYCIN HCL 1,750 MG in SODIUM CHLORIDE 0.9% 500 ML IV STA (04:57)
--- NOTE | 2022-10-30 06:31 | History and Physical Report ---
DATE OF ADMISSION: 10/29/2022 CHIEF COMPLAINT: Severe left hip pain. HISTORY OF PRESENT ILLNESS: This is a 62-year-old female with past medical history significant for hyperlipidemia, prediabetes, hypertension, history of cirrhosis of liver, reflux esophagitis, kidney stones, osteoarthritis, chronic back pain, rheumatoid arthritis, presents with severe left hip pain that started yesterday morning. The patient is not able to put her weight on leg, having ambulatory dysfunction, not able to move the leg. That is why she came here. In the ER, she was spiking temperatures and imaging studies showed left hip joint effusion, possible septic arthritis. The patient complaining of severe pain, asking for pain medications. No chest pain, no shortness of breath. She has occasional cough. No headache, no dizziness, no blurred visions, no earache, no runny nose, no sore throat. No nausea, no abdominal pain. Normal bowel and bladder movements, hemodynamically stable. ALLERGIES: BACTRIM, NAPROXEN. PAST MEDICAL HISTORY: As mentioned above. PAST SURGICAL HISTORY: Colonoscopy, EGDs, EGD with endoscopic ultrasound, ERCP, laparoscopic cholecystectomy, appendectomy, total abdominal hysterectomy with removal of tubes. MEDICATIONS: The patient is on Humira every 2 weeks, amlodipine 10 mg p.o. a.m., Augmentin 1 tablet p.o. b.i.d., last day is today, atorvastatin 20 mg p.o. daily, losartan 100 mg p.o. a.m., omeprazole 20 mg p.o. a.m. FAMILY HISTORY: Significant for brother has bone cancer; father has heart disorder, hypertension; mother has heart disorder; brother has hypertension; mother has hypertension. Paternal grandfather had stroke. SOCIAL HISTORY: . Quit smoking in 1992, smoked 0.2 packs a day, not drinking alcohol since 2019. No drug use. REVIEW OF SYSTEMS: As per HPI. Rest of the review of systems is negative. PHYSICAL EXAMINATION: GENERAL: The patient is of moderate build, not in acute distress. VITAL SIGNS: Temperature T-max 38.5, pulse 86, respiratory rate 18, blood pressure 126/70, oxygen 97% on 2 L. HEENT: Pupils equal, round and reactive to light. Oral mucosa moist. NECK: No JVD, no neck masses. CARDIOVASCULAR: S1 and S2 heard. Regular rate and rhythm. No murmur, no gallop. RESPIRATORY SYSTEM: Normal AP diameter. No accessory muscle use. No wheezing or crackles. ABDOMEN: Soft, bowel sounds present, nontender, no distention. CENTRAL NERVOUS SYSTEM: . Alert and oriented. Speech is clear. No facial droop. Obeys simple commands. Moves extremities except the left leg. EXTREMITIES: No edema, no erythema. Painful left hip movements. LABORATORY DATA: WBC 13, hemoglobin 13.4, hematocrit 39.7, platelets 153. ESR 30. Sodium 137, potassium 4.1, chloride 106, bicarbonate 21, BUN 25, creatinine 1, serum glucose 128, lactate 1, calcium 9.8, total bilirubin 0.9, AST 69, ALT 57, alkaline phosphatase 200. C-reactive protein 0.8. Procalcitonin 0.05. SARS-CoV-2 PCR negative. Influenza A and B PCR negative. RSV PCR negative. IMAGING DATA: CT scan of the femur with IV contrast shows left hip joint effusion, consider left hip MRI if clinically indicated. CT abdomen and pelvis early hepatic cirrhosis, splenomegaly, cholecystectomy, appendectomy. Hip and pelvic x-ray results are pending. ASSESSMENT AND PLAN: This 62-year-old female presents with fever, left hip pain. 1. Severe left hip pain, possible septic arthritis, left hip. Joint effusion on the CAT scan. Pain control. In the ER, received IV cefepime. We will continue with IV vancomycin and IV Zosyn. N.p.o., IV fluids. Ortho consult. Closely monitor in the med tele. 2. History of rheumatoid arthritis, on Humira, which we are holding now. 3. History of hypertension: Continue amlodipine. Hold losartan. IV hydralazine p.r.n. for planned procedures. 4. Hyperlipidemia. On statin. 5. Gastroesophageal reflux disease: On omeprazole. 6. Prediabetes: Will follow HbA1c levels. 7. History of early cirrhosis of liver. possibly from leflunomide which is stopped and seems changed to Humira. Monitor for any volume overload. 8. Deep venous thrombosis prophylaxis: Could not place on any anticoagulation for any planned procedure. Could not place sequential compression devices because of acute left lower extremity pain. Once the procedure is done, we can place her on Lovenox. Level 1 full code. Job ID: [id number] [facility]
--- NOTE | 2022-10-30 07:08 | XRay Report ---
XR hip LT 2V w pelvis HISTORY: 62 years-old Female left pelvic pain acute pain of the pelvis and left hip COMPARISON: CT left femur of same day TECHNIQUE: AP view of the pelvis with 2 views of the left hip FINDINGS: Moderate degeneration of the pubic symphysis. No acute fracture, dislocation, avascular necrosis or s ignificant osteoarthritis. Unremarkable soft tissues. IMPRESSION: No acute fracture or dislocation. ACT 112: Negative or not required by law. The above report was generated using voice recognition software. It may contain grammatical, syntax o r spelling errors. Electronically signed by: Emre Moser M.D. 10/30/2022 7:05 AM
[2022-10-30] MEDS ORDERED: ONDANSETRON INJ 2 MG/ML 2 ML VIAL IV PRN ×2 (09:29→13:18)
[2022-10-30] MEDS ORDERED: HYDROmorphone INJ 0.5 MG/0.5 ML SYR IV PRN (09:29)
[2022-10-30] MEDS ORDERED: NITROGLYCERIN SL 0.4 MG/TAB TAB SL PRN (09:29)
[2022-10-30] MEDS ORDERED: hydrALAZINE HCL 20 MG/ML VIAL IV PRN (09:29)
[2022-10-30] MEDS ORDERED: PIPERACILLIN/TAZOBACTAM 3.375 GM in DEXTROSE 5% 100 ML IV ONE (10:00)
[2022-10-30] MEDS ORDERED: MoRPHine SULFATE 4 MG/ML 1 ML CARP\\VIAL IV PRN (10:26)
[2022-10-30 10:40] LABS: Basophils # (auto) 0.01 K/uL (0-0.2); Basophils % (auto) 0.1 %; Eosinophils # (auto) 0.01 K/uL (0-0.50); Eosinophils % (auto) 0.1 %; Hematocrit (blood only) 35.7 % (37.0-47.0); Hemoglobin 12.1 g/dl (12.0-16.0); Immature Granulocytes # (auto) 0.03 K/uL (0.01-0.20); Immature Granulocytes % (auto) 0.3 %; Lymphocytes # (auto) 1.67 K/uL (1.2-3.4); Lymphocytes % (auto) 16.6 %; Mean Corpuscular Hemoglobin 29.1 pg (25.0-34.0); Mean Corpuscular Hgb Conc 33.9 g/dL (32.0-36.0); Mean Corpuscular Volume 85.8 fL (80.0-100.0); Mean Platelet Volume 9.9 fL (9.4-12.4); Monocytes # (auto) 1.16 K/uL (0.11-0.59); Monocytes % (auto) 11.5 %; Neutrophils # (auto) 7.17 K/uL (1.40-6.50); Neutrophils % (auto) 71.4 %; Platelet Count 108 K/uL (130-400); RDW Coefficient of Variation 12.9 % (11.5-14.5); RDW Standard Deviation 39.9 fL (36.4-46.3); Red Blood Count 4.16 M/uL (4.20-5.40); White Blood Count 10.05 K/ul (4.8-10.8)
[2022-10-30 11:04] LABS: BUN Creatinine Ratio 26.6 (10-20); Calcium 8.9 mg/dl (8.5-10.1); Est GFR (African American) 112.4 ml/min; Magnesium 1.7 mg/dl (1.7-2.4)
[2022-10-30 11:12] LABS: Estimated Average Glucose 117 mg/dl; Hemoglobin A1C 5.7 % (4.5-5.6)
[2022-10-30] MEDS: PANTOprazole 40 MG TAB PO SCH (11:22)
[2022-10-30] MEDS: amLODIPine BESYLATE 5 MG TAB PO SCH (11:22)
[2022-10-30] MEDS: SODIUM CHLORIDE 0.9% 1000ML 1,000 ML IV SCH (11:22)
[2022-10-30] MEDS: ATORVASTATIN 20 MG TAB PO SCH (11:22)
[2022-10-30] MEDS: oxyCODONE HCL IR 5 MG TAB (IMMEDIATE RELEASE) PO SCH ×2 (11:22→17:51)
--- NOTE | 2022-10-30 11:31 | Orthopedic Consultation ---
Date of Consultation October 30, 2022 Assessment & Plan (1) Septic arthritis: Discussed the case with Dr. Laughlin. Contacted the operating room at the hospital and have timed block for the patient to undergo irrigation debridement of her left hip at around 1:30-2:00 today. Patient is currently NPO. She is on vancomycin and IV pain control via the hospitalist service. They will provide primary coverage. Dr. Laughlin will see the patient after his cases are finished at the surgery center and obtain consent from the patient to perform the procedure. Present on Admission?: Yes (2) Acute pain of left hip: Supervising Physician Co-Signing Physician Notes I, Dr. Laughlin, saw and examined the patient and discussed the management with my PA. I reviewed my PAs note and agree with the documented findings and the plan of care I developed. LLE: Neurovascularly intact. Hip in a flexed and ER position and has severe pain with any movement. ++ pain in the groin. History of Present Illness Reason for Consultation: Left hip septic arthritis Requesting Physician: Joaquim Laughlin MD Attending Physician: Chris Vallejo MD History of Present Illness This is a 62-year-old female with past medical history significant for hyperlipidemia, prediabetes, hypertension, history of cirrhosis of liver, reflux esophagitis, kidney stones, osteoarthritis, chronic back pain, rheumatoid arthr itis, presents with severe left hip pain that started yesterday morning. The patient is not able to put her weight on leg, having ambulatory dysfunction, not able to move the leg. That is why she came here. In the ER, she was spiking temperatures and imaging studies showed left hip joint effusion, possible septic arthritis. The patient complaining of severe pain, asking for pain medications. No chest pain, no shortness of breath. She has occasional cough. No headache, no dizziness, no blurred visions, no earache, no runny nose, no sore throat. No nausea, no abdominal pain. Normal bowel and bladder movements, hemodynamically stable. Allergies Allergy/AdvReac Type Severity Reaction Status Date / Time sulfamethoxazole Allergy Intermediate ITCHING Verified 05/29/22 15:50 trimethoprim Allergy Intermediate ITCHING Verified 05/29/22 15:50 naproxen AdvReac Intermediate NAUSEA AND Verified 05/29/22 15:50 [id number] Home Medications Medication Instructions Recorded Confirmed Type losartan 100 mg tablet 100 mg PO QAM 01/24/20 10/30/22 History atorvastatin 20 mg tablet 20 mg PO DAILY 11/05/20 10/30/22 History adalimumab 40 mg/0.8 mL 40 mg subcut .EVERY 2 WEEKS 10/30/22 10/30/22 History subcutaneous pen kit (Humira Pen) amlodipine 10 mg tablet 10 mg PO QAM 10/30/22 10/30/22 History amoxicillin 875 mg-potassium 1 tab PO AMHS 10/30/22 10/30/22 History clavulanate 125 mg tablet omeprazole 20 mg capsule,delayed 20 mg PO QAM 10/30/22 10/30/22 History release Patient History Medical History Chronic cough inhaler for this > rare use > no asthma dx GERD (gastroesophageal reflux disease) High blood pressure Hyperlipidemia IBS (irritable bowel syndrome) Insomnia Kidney stones Migraine Osteoarthritis Rheumatoid arthritis Surgical History H/O endoscopic retrograde cholangiopancreatography History of appendectomy History of cholecystectomy History of colonoscopy History of cystoscopy History of dilatation and curettage History of esophagogastroduodenoscopy (EGD) History of hysterectomy History of lithotripsy History of tooth extraction Social History Smoking Status: Former smoker Second Hand Exposure: No; Hx Alcohol Use: No Hx Substance Use: No Preferred Language: Citizen Of [place] Communication Ability: Effective Supervisor Sewer System Required: No Beliefs That Will Affect Care: None marital status: Current Living Situation: Spouse 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 She has her hip externally rotated and her knee flexed to about 90 degrees. I was unable to move her knee or hip at all due to excruciating pain. She states this is the position of maximal comfort. Patient states that she has been unable normal to bear weight since yesterday. She is able to detect light sensation to touch over the pads of all digits. She has no dermatomal deficit in the left lower extremity. I was unable to determine range of motion of the knee or hip due to the pain she experienced. She did have no tenderness over the lateral aspect of the hip or posterior aspect. Results & Data Vital Signs (Past 12 Hours) Vital Signs Temp Pulse Pulse Resp BP BP BP 10/30/22 11:13 37.4 C 81 18 138/80 10/30/22 09:56 37.5 C 80 16 145/82 H 10/30/22 08:54 36.9 C 78 18 139/75 10/30/22 08:04 82 18 152/89 H 10/30/22 01:35 86 18 126/70 Pulse Ox O2 Del Method O2 Flow Rate 10/30/22 11:13 94 Room Air 10/30/22 09:56 95 Room Air 10/30/22 08:54 96 Room Air 10/30/22 08:04 95 Room Air 10/30/22 01:35 97 Nasal Cannula 2 Diagnostic Findings Laboratory Results WBC 10.05 K/ul (4.8-10.8) 10/30/22 09:54 RBC 4.16 M/uL (4.20-5.40) L 10/30/22 09:54 Hgb 12.1 g/dl (12.0-16.0) 10/30/22 09:54 Hct 35.7 % (37.0-47.0) L 10/30/22 09:54 MCV 85.8 fL (80.0-100.0) 10/30/22 09:54 MCH 29.1 pg (25.0-34.0) 10/30/22 09:54 MCHC 33.9 g/dL (32.0-36.0) 10/30/22 09:54 RDW Std Deviation 39.9 fL (36.4-46.3) 10/30/22 09:54 RDW Coeff of Rad 12.9 % (11.5-14.5) 10/30/22 09:54 Plt Count 108 K/uL (130-400) L 10/30/22 09:54 MPV 9.9 fL (9.4-12.4) 10/30/22 09:54 Immature Gran % (Auto) 0.3 % 10/30/22 09:54 Neut % (Auto) 71.4 % 10/30/22 09:54 Lymph % (Auto) 16.6 % 10/30/22 09:54 [place] % (Auto) 11.5 % 10/30/22 09:54 Eos % (Auto) 0.1 % 10/30/22 09:54 Baso % (Auto) 0.1 % 10/30/22 09:54 Neut # (Auto) 7.17 K/uL (1.40-6.50) H 10/30/22 09:54 Lymph # (Auto) 1.67 K/uL (1.2-3.4) 10/30/22 09:54 [place] # (Auto) 1.16 K/uL (0.11-0.59) H 10/30/22 09:54 Eos # (Auto) 0.01 K/uL (0-0.50) 10/30/22 09:54 Baso # (Auto) 0.01 K/uL (0-0.2) 10/30/22 09:54 Immature Gran # (Auto) 0.03 K/uL (0.01-0.20) 10/30/22 09:54 ESR 30 mm/hr (0-30) 10/29/22 21:50 Sodium 137 mmol/L (136-145) 10/30/22 09:54 Potassium 4.0 mmol/L (3.5-5.1) 10/30/22 09:54 Chloride 108 mmol/L (98-107) H 10/30/22 09:54 Carbon Dioxide 22 mmol/L (21-32) 10/30/22 09:54 Anion Gap 7 (3-11) 10/30/22 09:54 BUN 17 mg/dl (6-23) 10/30/22 09:54 Creatinine 0.64 mg/dl (0.6-1.2) D 10/30/22 09:54 Est Cr Clr Drug Dosing 95.0 ml/min 10/30/22 09:54 Est GFR ( Amer) 112.4 ml/min 10/30/22 09:54 Est GFR (Non-Af Amer) 97.0 ml/min 10/30/22 09:54 BUN/Creatinine Ratio 26.6 (10-20) H 10/30/22 09:54 Glucose 119 mg/dl (70-99(Fasting)) H 10/30/22 09:54 Estimat Average Glucose 117 mg/dl 10/30/22 09:54 Hemoglobin A1c 5.7 % (4.5-5.6) H 10/30/22 09:54 Lactate 1.0 mmol/L (0.4-2.0) 10/29/22 23:21 Calcium 8.9 mg/dl (8.5-10.1) 10/30/22 09:54 Magnesium 1.7 mg/dl (1.7-2.4) 10/30/22 09:54 Total Bilirubin 0.9 mg/dl (0.2-1.0) 10/29/22 21:50 AST 69 U/L (13-39) H 10/29/22 21:50 ALT 57 U/L (7-52) H 10/29/22 21:50 Alkaline Phosphatase 200 U/L (34-104) H 10/29/22 21:50 C-Reactive Protein 0.88 mg/dl (0-0.5) H 10/29/22 21:50 Total Protein 8.1 gm/dl (6.0-8.3) 10/29/22 21:50 Albumin 4.5 gm/dl (3.4-5.0) 10/29/22 21:50 Globulin 3.6 gm/dl (2.5-4.0) 10/29/22 21:50 Albumin/Globulin Ratio 1.3 (0.9-2) 10/29/22 21:50 Procalcitonin 0.05 ng/ml (0-0.5) 10/29/22 21:50 SARS-CoV-2 (PCR) NEGATIVE (Negative) 10/30/22 02:30 Influenza Type A (PCR) Negative (Neg) 10/30/22 02:30 Influenza Type B (PCR) Negative (Neg) 10/30/22 02:30 RSV (RT-PCR) Negative (Neg) 10/30/22 02:30 Impressions Hip/Pelvis X-Ray 10/29/22 22:51 XR hip LT 2V w pelvis HISTORY: 62 years-old Female left pelvic pain acute pain of the pelvis and left hip COMPARISON: CT left femur of same day TECHNIQUE: AP view of the pelvis with 2 views of the left hip FINDINGS: Moderate degeneration of the pubic symphysis. No acute fracture, dislocation, avascular necrosis or significant osteoarthritis. Unremarkable soft tissues. IMPRESSION: No acute fracture or dislocation. ACT 112: Negative or not required by law. The above report was generated using voice recognition software. It may contain grammatical, syntax or spelling errors. Electronically signed by: Emre Moser M.D. 10/30/2022 7:05 AM Abdomen/Pelvis CT 10/29/22 23:57 Exam(s): CT ABDOMEN + PELVIS With Contrast IV Amt: 85 ml optiray 350 EXAM: CT Abdomen and Pelvis With Intravenous Contrast CLINICAL HISTORY: Reason for exam: left groin pain. TECHNIQUE: Axial computed tomography images of the abdomen and pelvis with intravenous contrast. Automated exposure control was utilized for the study. A dose lowering technique was utilized adhering to the principles of ALARA. CONTRAST: Patient received 85 ml optiray 350 of IV contrast COMPARISON: No relevant prior studies available. FINDINGS: Lung bases: Unremarkable. No mass. No consolidation. ABDOMEN: Liver: Early hepatic cirrhosis. Splenomegaly. Cholecystectomy. Gallbladder and bile ducts: See above. Pancreas: Unremarkable. No mass. No ductal dilation. Spleen: See above. Adrenals: Unremarkable. No mass. Kidneys and ureters: Unremarkable. No hydronephrosis or delayed nephrogram. Stomach and bowel: Unremarkable. No obstruction. No mucosal thickening. PELVIS: Appendix: Appendectomy. Bladder: Unremarkable. No mass. Reproductive: Hysterectomy. ABDOMEN and PELVIS: Intraperitoneal space: Unremarkable. No free air. No significant fluid collection. Bones/joints: Degenerative changes of the spine. No acute fracture. No dislocation. Soft tissues: Unremarkable. Vasculature: Unremarkable. No abdominal aortic aneurysm. Lymph nodes: Unremarkable. No enlarged lymph nodes. IMPRESSION: 1. Early hepatic cirrhosis. Splenomegaly. Cholecystectomy. 2. Appendectomy. Electronically signed by: Christopher Milan MD 10/30/22 01:[address] 10/29/22 23:57 Exam(s): CT EXTREMITY LEFT LOWER With Contrast IV Amt: 85 ml optiray 350 EXAM: CT Left Lower Extremity With Intravenous Contrast CLINICAL HISTORY: Reason for exam: left thigh pain. TECHNIQUE: Axial computed tomography images of the left lower extremity with intravenous contrast. Automated exposure control was utilized for the study. A dose lowering technique was utilized adhering to the principles of ALARA. CONTRAST: Patient received 85 ml optiray 350 of IV contrast COMPARISON: No relevant prior studies available. FINDINGS: Bones/joints: Left hip joint effusion. Consider left hip MRI if clinically indicated. No acute fracture. No dislocation. Soft tissues: Unremarkable. No abnormal contrast enhancement. IMPRESSION: Left hip joint effusion. Consider left hip MRI if clinically indicated. Electronically signed by: Christopher Milan MD 10/30/22 01:54 AM
--- NOTE | 2022-10-30 11:42 | Pharmacy Report ---
Pharmacy PK ABX Note - Date of Service October 30, 2022 - Assessment and Plan Assessment 62 year old F receiving Vancomycin and Zosyn for treatment of possible septic arthritis of hip. * 24 hr Tmax of 38.5oC. White count down to 10k. Significant improvement in renal fxn today. Lactate and procal negative. * Blood cultures pending. * To OR today for I&D of hip. Await OR cultures. Plan Vancomycin * Loading dose: 1750 mg IV x 1 * Maintenance dose: 1000 mg IV every 12 hours * Regimen is predicted to achieve target AUC/EMMETT of 400-600 mg/L.hr * Random level ordered for: 11/01/22 Pharmacy will continue to follow and will adjust dose/frequency as necessary. Thank you. Pharmacy has transitioned to AUC monitoring for vancomycin. AUC/EMMETT is the preferred PK/PD target and is associated with decreased risk of nephrotoxicity compared to traditional trough targets.
--- NOTE | 2022-10-30 12:16 | Communication Note ---
Date of Service: October 30, 2022 Patient seen and examined at bedside. She is in significant amount of pain in her left hip. Hemodynamically stable; Febrile to 38.5 in the ED; reports chills. WBC down trended to [address] femur showed left hip joint effusion. On examination Alert oriented x3; in significant pain. Chestbilateral vesicular breath sound CVSS1-S2 no murmur Abdomensoft nontender Left hiptenderness to palpation over left groin. Slight redness and warmth present. ROM limited with pain. Assessment/plan: Left hip pain likely due to septic arthritis Risk factors include history of rheumatoid arthritis on immunosuppression Febrile in ED CT femur showed left hip joint effusion Currently on vancomycin and Zosyn. Orthopedics on board; planning for left fifth incision and drainage.
[2022-10-30] MEDS ORDERED: HYDROmorphone INJ 1 MG/ML SYRINGE IV PRN (13:18)
[2022-10-30] MEDS ORDERED: ACETAMINOPHEN 1,000 MG/100 ML VIAL IV STA (13:18)
[2022-10-30] MEDS ORDERED: LABETALOL HCL IV 5 MG/ML 20ML IV PRN (13:18)
[2022-10-30] MEDS ORDERED: ATROPINE SULFATE 0.1 MG/ML 10ML SYR IV PRN (13:18)
[2022-10-30] MEDS ORDERED: ePHEDrine sulfate 50 MG/ML AMP IV PRN (13:18)
[2022-10-30] MEDS ORDERED: ALBUTEROL 0.083% NEBU SOLN 3 ML VIAL INH PRN (13:18)
--- NOTE | 2022-10-30 13:18 | Anesthesiology Consultation ---
Date of Service October 30, 2022 Assessment & Plan Consults Requested medical & cardiac Pulmonary ASA [id number] Proposed Anesthesia Anesthesia Type: General History Surgery Operation Date: 10/30/22 13:30 Proposed Procedures p Left Hip Incision and Drainage - Joaquim Evelio Laughlin MD Height/Weight Height: 5 ft 6 in Weight: 72 kg Allergies Allergy/AdvReac Type Severity Reaction Status Date / Time sulfamethoxazole Allergy Intermediate ITCHING Verified 05/29/22 15:50 trimethoprim Allergy Intermediate ITCHING Verified 05/29/22 15:50 naproxen AdvReac Intermediate NAUSEA AND Verified 05/29/22 15:50 [id number] Medications Home Medications Medication Instructions Recorded Confirmed Last Taken losartan 100 mg tablet 100 mg PO QAM 01/24/20 10/30/22 10/29/22 atorvastatin 20 mg tablet 20 mg PO DAILY 11/05/20 10/30/22 10/29/22 adalimumab 40 mg/0.8 mL 40 mg subcut .EVERY 2 WEEKS 10/30/22 10/30/22 10/25/22 subcutaneous pen kit (Humira Pen) amlodipine 10 mg tablet 10 mg PO QAM 10/30/22 10/30/22 10/29/22 amoxicillin 875 mg-potassium 1 tab PO AMHS 10/30/22 10/30/22 10/29/22 clavulanate 125 mg tablet omeprazole 20 mg capsule,delayed 20 mg PO QAM 10/30/22 10/30/22 10/29/22 release Active Medications Generic Name Dose Route Start Last Admin Trade Name Freq PRN Reason Stop Dose Admin Amlodipine Besylate 10 mg 10/30/22 09:29 10/30/22 11:22 Amlodipine Besylate 5 Mg Tab PO 11/29/22 09:28 10 mg QAM MACY Administration Atorvastatin Calcium 20 mg 10/30/22 09:29 10/30/22 11:22 Atorvastatin 20 Mg Tab PO 11/29/22 09:28 20 mg DAILY MACY Administration Sodium Chloride 1,000 mls @ 75 mls/hr 10/30/22 09:29 10/30/22 11:22 Nss 1000ml IV 11/29/22 09:28 75 mls/hr .[id number] MACY Administration Morphine Sulfate 4 mg 10/30/22 10:26 10/30/22 11:21 Morphine Sulfate 4 Mg/Ml 1 Ml Carp\Vial IV 11/13/22 10:25 4 mg Q4H PRN Administration Severe Pain (Scale 7, 8, 9,10) Ondansetron HCl 4 mg 10/30/22 09:29 10/30/22 11:21 Ondansetron Inj 2 Mg/Ml 2 Ml Vial IV 11/29/22 09:28 4 mg Q6H PRN Administration Nausea Oxycodone HCl 5 mg 10/30/22 10:30 10/30/22 11:22 Oxycodone Hcl Ir 5 Mg Tab (Immediate Release) PO 11/13/22 10:29 5 mg Q6H MACY Administration Pantoprazole Sodium 40 mg 10/30/22 09:29 10/30/22 11:22 Pantoprazole 40 Mg Tab PO 11/29/22 09:28 40 mg QAM MACY Administration Past Medical History Medical History Chronic cough inhaler for this > rare use > no asthma dx GERD (gastroesophageal reflux disease) High blood pressure Hyperlipidemia IBS (irritable bowel syndrome) Insomnia Kidney stones Migraine Osteoarthritis Rheumatoid arthritis Past Surgical History Surgical History H/O endoscopic retrograde cholangiopancreatography History of appendectomy History of cholecystectomy History of colonoscopy History of cystoscopy History of dilatation and curettage History of esophagogastroduodenoscopy (EGD) History of hysterectomy History of lithotripsy History of tooth extraction Social History Smoking Status: Former smoker Hx Alcohol Use: No alcohol intake frequency: holidays/special occasions only Hx Substance Use: No substance use type: does not use Review of Systems Respiratory: no problem reported Cardiovascular: no problem reported Physical Exam Vital Signs Last Vital Signs Temp 37.4 C 10/30/22 11:13 Pulse 81 10/30/22 11:13 Resp 18 10/30/22 11:13 BP 138/80 10/30/22 11:13 Pulse Ox 94 10/30/22 11:13 O2 Del Method Room Air 10/30/22 11:13 O2 Flow Rate 2 10/30/22 01:35 ENMT Mallampati Class: II Neck normal visual inspection Respiratory normal respiratory effort; no respiratory distress Auscultation: lungs clear to auscultation bilaterally Cardiovascular Rate/Rhythm: regular rate and regular rhythm Psychiatric Orientation: alert and oriented x 3 Testing Laboratory Results 10/30/22 09:54 10/30/22 09:54 Hemoglobin A1c 5.7 % (4.5-5.6) H 10/30/22 09:54
[2022-10-30] MEDS ORDERED: MIDAZOLAM HCL 1 MG/ML 2ML VIAL ONE (13:40)
[2022-10-30] MEDS ORDERED: fentaNYL citrate PF 100 MCG/2 ML VIAL ONE (13:40)
[2022-10-30] MEDS ORDERED: KETOROLAC TROMETHAMINE 15 MG/ML VIAL IV PRN (13:58)
[2022-10-30] MEDS ORDERED: KETAMINE 50 MG/5 ML SYRINGE ONE (14:16)
[2022-10-30] MEDS ORDERED: LIDOCAINE/EPINEPHRINE 1% 20 ML VIAL ONE (14:31)
[2022-10-30] MEDS ORDERED: BUPIVACAINE 0.5 % 5 MG/1 ML MPF 30ML VIAL ONE (14:31)
[2022-10-30] MEDS ORDERED: LIDOCAINE 2% MPF LOCAL 5 ML VIAL INFIL ONE (14:59)
[2022-10-30] MEDS ORDERED: ONDANSETRON INJ 2 MG/ML 2 ML VIAL ONE (14:59)
[2022-10-30] MEDS ORDERED: PROPOFOL IV EMULSION 10 MG/ML 20 ML VIAL IV ONE (14:59)
[2022-10-30] MEDS ORDERED: PHENYLEPHRINE HCL 10 MG/ML VIAL ONE (15:00)
--- NOTE | 2022-10-30 15:33 | Post Operative Brief Note ---
Immediate Post Op Note v1 Date of Surgery October 30, 2022 Pre & Post Diagnosis Operation Date: 10/30/22 13:30 Pre-Op Diagnosis: Left hip septic arthritis. Post-Op Diagnosis: Left hip septic arthritis. I identified the patient and participated in the time-out.: Yes Procedure Operation Date: 10/30/22 13:30 Actual Procedures p Left Hip Incision and Drainage - Joaquim Laughlin MD Surgeon Joaquim Laughlin MD Internist Medical Doctor Md Ananth Mathur DO & J DANGELO PayanC Estimated Blood Loss 20 Findings Consistent with Post-Op Diagnosis Fluids 1200 cc Specimens C&S Superficial #1 C&S Deep #2 L hip Aspirate for Cell Count, Gram stain, C&S, Crystals Drains Tavarez Catheter (Tavarez inserted after intubation without issue by Jluis Alonso RN. Noted yellow urine during insertion.) and Hemovac Drain Anesthesia Type General Complications none
--- NOTE | 2022-10-30 15:36 | Operative Report ---
Post Operative Report Pre & Post Diagnosis Operation Date: 10/30/22 13:30 Pre-Op Diagnosis: Left hip septic arthritis. Post-Op Diagnosis: Left hip septic arthritis. I identified the patient and participated in the time-out.: Yes Procedure Operation Date: 10/30/22 13:30 Actual Procedures p Left Hip Incision and Drainage - Joaquim Laughlin MD Surgeon Joaquim Laughlin MD Sales Solutions Representative Ananth Mathur DO & Helena Payan PA-C Estimated Blood Loss 20 Findings See Below As the left hip joint was entered there was large amount of purulent fluid that erupted out of the joint. The articular cartilage that was visible looked good. Fluids 1200 cc Specimens C&S Superficial #1 C&S Deep, #2 C&S L hip Aspirate for Cell Count, Gram stain, C&S, Crystals #3 Drains HVAC Tavarez placed after intubation and removed at the end of the case. Anesthesia Type General Complications none Indications The patient is a 62 year old female who has acute left hip pain, inability to bear weight or move her leg with elevated WBC, CRP and increased temperature. She has a CT scan with noted effusion, I recommended emergent surgery for I&D left hip. The patient understands the risks of surgery, which include but are not limited to: bleeding, infection, re-operation, damage to nerves and arteries, continued pain, DVT. The patient understands all of these instructions and explanations, all of their questions have been satisfactorily addressed. The patient has elected to proceed with surgery and the informed consent was signed. Description of Procedure The patient was taken to the Operating Room and placed in the supine position with a bump under the left. A Tavarez was placed and removed at the end of te case. Following general anesthesia administration a multidisciplinary time-out was performed identifying my initials on the left lower limb as the correct and operative limb. The patient is already on a regime of antibiotics of Vancomycin and Piperacillin/Tazobactam. The left lower extremity was prepped in the standard fashion. The ASIS was marked as was the planned incision approximately 8 cm distal to the ASIS. The incision was injected with a 50:50 mixture of 1% Lidocaine epi and 0.5% Bupivacaine plain for a total of 10cc. A standard anterior approach was made. The planned incision was carried down to the fascis. The Lateral Femoral Cutaneous Nerve (LFCN) was protected through out. The Tensor Fascia Lizzeth (TFL) fascia was incised and the plain between the TFL and Sartorius was bluntly dissected. The Rectus Femoris was retracted laterally and the Gluteus Medius was elevated off the capsule with a love and then retracted medially. The Capsule was incised in-line with its fibers and was extended in a hockey stick fashion. Upon entering the joint a large amount of purulent fluid erupted. Cultures were taken before and after entering the joint. The joint was then irrigated with 6 L Normal Saline. A Hemovac drain was placed and a single 2-0 antibiotic impregnated suture was placed to loosely close the capsule. The skin was closed with 3-0 Prolene. The incisions were covered with Xeroform, 4 x 4's, ABD, and foam tape. The patient was transferred to her hospital bed and taken to the PACU in stable condition. The sponge and needle counts were correct. Post-op Instructions: The patient was re-admitted back to the Hospitalist service on Tele Med/Surg floor. Continue IV antibiotics. The patient will be WBAT with a walker as needed. The patient will be seen by PT/OT. An ID consult will be obtained. TEDs and foot pumps will be started. Will continue to follow labs. I attest to the content of the Intraoperative Record and any orders documented therein. Any exceptions are noted below.
[2022-10-30] MEDS ORDERED: KETOROLAC 30 MG/ML VIAL IV PRN (16:30)
[2022-10-30 16:59] LABS: Appearance Synovial Fluid Turbid; Color Synovial Fluid Red; Mononuclear WBC Synovial 4.9 %; Polynuclear WBC Synovial 95.1 %; RBC Synovial Fluid Auto 100000 /uL; Source Synovial Fluid Left Hip; WBC Synovial Fluid Auto 92000 /ul (0-200)
[2022-10-30] MEDS: PIPERACILLIN/TAZOBACTAM 3.375 GM in DEXTROSE 5% 100 ML IV SCH (17:51)
--- NOTE | 2022-10-30 17:52 | Anesthesiology Progress Note ---
Date of Service October 30, 2022 Anesthesia Post Procedure Vital Signs Vital Signs: Temp Pulse Pulse Pulse Resp BP BP 10/30/22 16:10 87 20 154/77 H 10/30/22 17:00 77 13 108/58 L 10/30/22 16:50 71 13 99/75 L 10/30/22 16:40 37.2 C 88 17 123/66 10/30/22 16:30 81 13 130/63 10/30/22 16:20 83 13 131/65 10/30/22 16:00 84 15 153/79 H 10/30/22 15:52 36.7 C 87 16 150/65 H 10/30/22 13:25 37.2 C 80 20 131/71 10/30/22 11:13 37.4 C 81 18 138/80 10/30/22 09:56 37.5 C 80 16 10/30/22 08:54 36.9 C 78 18 139/75 10/30/22 08:04 82 18 152/89 H 10/30/22 01:35 86 18 126/70 10/29/22 22:28 94 H 22 161/96 H 10/29/22 21:28 38.5 C H 99 H 20 143/78 H BP Pulse Ox O2 Del Method O2 Flow Rate 10/30/22 16:10 92 Oxymask 7 10/30/22 17:00 95 Nasal Cannula 4 10/30/22 16:50 94 Nasal Cannula 4 10/30/22 16:40 93 Oxymask 7 10/30/22 16:30 92 Oxymask 7 10/30/22 16:20 93 Oxymask 7 10/30/22 16:00 92 Oxymask 5 10/30/22 15:52 94 Oxymask 7 10/30/22 13:25 94 Room Air 10/30/22 11:13 94 Room Air 10/30/22 09:56 145/82 H 95 Room Air 10/30/22 08:54 96 Room Air 10/30/22 08:04 95 Room Air 10/30/22 01:35 97 Nasal Cannula 2 10/29/22 22:28 96 Room Air 10/29/22 21:28 96 Room Air Pain Intensity Left Upper Leg: Pain Intensity: 5 Transfer of Care Handoff Completed per policy Notes Mental Status: alert / awake / arousable Patient Amnestic to Procedure: Yes Nausea / Vomiting: adequately controlled Pain: adequately controlled Airway Patency, RR, SpO2: stable & adequate BP & HR: stable & adequate Hydration State: stable & adequate Anesthetic Complications: no major complications apparent
[2022-10-30] MEDS ORDERED: VANCOMYCIN HCL 1,250 MG in SODIUM CHLORIDE 0.9% 250 ML IV SCH (18:00)
[2022-10-30] MEDS ORDERED: MoRPHine SULFATE 2 MG/ML CARP IV PRN (18:03)
[2022-10-30] MEDS ORDERED: ACETAMINOPHEN 325 MG TAB PO PRN (18:03)
[2022-10-30] MEDS: VANCOMYCIN HCL 1,000 MG in SODIUM CHLORIDE 0.9% 250 ML IV SCH (18:25)
[2022-10-31] MEDS: PIPERACILLIN/TAZOBACTAM 3.375 GM in DEXTROSE 5% 100 ML IV SCH ×4 (00:39→23:48)
[2022-10-31] MEDS: SODIUM CHLORIDE 0.9% 1000ML 1,000 ML IV SCH (00:40)
[2022-10-31] MEDS: VANCOMYCIN HCL 1,000 MG in SODIUM CHLORIDE 0.9% 250 ML IV SCH ×2 (05:25→20:35)
[2022-10-31 07:33] LABS: Basophils # (auto) 0.01 K/uL (0-0.2); Basophils % (auto) 0.1 %; Eosinophils # (auto) 0.05 K/uL (0-0.50); Eosinophils % (auto) 0.6 %; Hematocrit (blood only) 32.9 % (37.0-47.0); Hemoglobin 10.9 g/dl (12.0-16.0); Immature Granulocytes # (auto) 0.02 K/uL (0.01-0.20); Immature Granulocytes % (auto) 0.2 %; Lymphocytes # (auto) 1.51 K/uL (1.2-3.4); Lymphocytes % (auto) 17.3 %; Mean Corpuscular Hemoglobin 29.4 pg (25.0-34.0); Mean Corpuscular Hgb Conc 33.1 g/dL (32.0-36.0); Mean Corpuscular Volume 88.7 fL (80.0-100.0); Monocytes # (auto) 0.84 K/uL (0.11-0.59); Monocytes % (auto) 9.6 %; Neutrophils # (auto) 6.28 K/uL (1.40-6.50); Neutrophils % (auto) 72.2 %; Platelet Count 93 K/uL (130-400); RBC Morphology Unremarkable; RDW Coefficient of Variation 12.8 % (11.5-14.5); Red Blood Count 3.71 M/uL (4.20-5.40); White Blood Count 8.71 K/ul (4.8-10.8)
[2022-10-31 07:41] LABS: BUN Creatinine Ratio 16.4 (10-20); Calcium 8.4 mg/dl (8.5-10.1); Creatinine Clr Calc Pharmacy 84.7 ml/min; Est GFR (African American) 103.8 ml/min; Est GFR (Non-African American) 89.5 ml/min; Potassium 4.1 mmol/L (3.5-5.1)
[2022-10-31] MEDS: oxyCODONE HCL IR 5 MG TAB (IMMEDIATE RELEASE) PO PRN ×2 (07:43→16:11)
[2022-10-31] MEDS: ATORVASTATIN 20 MG TAB PO SCH (08:33)
[2022-10-31] MEDS: PANTOprazole 40 MG TAB PO SCH (08:33)
[2022-10-31] MEDS: LOSARTAN POTASSIUM 50 MG TAB PO SCH (08:33)
[2022-10-31] MEDS: amLODIPine BESYLATE 5 MG TAB PO SCH (08:33)
[2022-10-31 09:13] LABS: Appearance Urine Clear (Clear); Bacteria Urine Automated Negative (Negative); Bilirubin Urine Negative (Negative); Blood Urine Trace (Negative); Color Urine Yellow; Epithelial Cell Urine Auto 0-5 /lpf (0-5); Glucose Urine UA Negative (Negative); Ketones Urine Trace (Negative); Leukocyte Esterase Urine Negative (Negative); Nitrite Urine Negative (Negative); Protein Urine Negative (Negative); RBC Urine Automated 0-4 /hpf (0-4); Specific Gravity Urine 1.014 (1.000-1.030); Urobilinogen Urine Negative (Negative); pH Urine 5.5 (4.5-7.5)
--- NOTE | 2022-10-31 09:20 | Orthopedic Progress Note ---
"Date of Service October 31, 2022 Assessment & Plan (1) Effusion of hip joint, left: Plan: POD #1 s/p I&D L hip, septic arthritis versus inflammatory process, doing well Resume diet. WBAT. Continue IV Abiotics. ID consult pending. HVAC removed. Re-enforce dressing as needed. OOB to chair. Continue pain control. Continue to follow labs. DVT prophylaxis: TEDs 3 weeks, SCDs while in hospital, medicinal per primary service. PT/OT. D/C planning. Continue care per primary service. Present on Admission?: Yes Admission and Anticipated Discharge Date Admission Date: October 30, 2022 Subjective Feeling 100% better. Having some discomfort in hip. Review of Systems Review of Systems: All systems reviewed & are unremarkable except as noted in HPI & below Physical Exam Physical Exam: Appears much more comfortable in bed. LLE: Sensation to light touch intact distally. 2+ DP pulse. moving toes and ankle. Calfs soft and non-tender. Guarded with attempted ROM of hip, no pain. Results & Data Vital Signs (Past 12 Hours) Vital Signs Temp Pulse Pulse Resp BP Pulse Ox O2 Del Method 10/31/22 07:20 76 10/30/22 22:01 59 L 10/31/22 04:00 37.4 C 66 18 109/68 94 Room Air 10/30/22 22:50 36.7 C 58 L 18 95/60 L 97 Nasal Cannula O2 Flow Rate 10/31/22 07:20 10/30/22 22:01 10/31/22 04:00 10/30/22 22:50 4 Laboratory Results 10/31/22 10/31/22 10/31/22 Range/Units 08:45 06:20 06:20 WBC 8.71 (4.8-10.8) K/ul RBC 3.71 L (4.20-5.40) M/uL Hgb 10.9 L (12.0-16.0) g/dl Hct 32.9 L (37.0-47.0) % MCV 88.7 (80.0-100.0) fL MCH 29.4 (25.0-34.0) pg MCHC 33.1 (32.0-36.0) g/dL RDW Std Deviation 41.0 (36.4-46.3) fL RDW Coeff of Rad 12.8 (11.5-14.5) % Plt Count 93 L (130-400) K/uL MPV 10.0 (9.4-12.4) fL Immature Gran % (Auto) 0.2 % Neut % (Auto) 72.2 % Lymph % (Auto) 17.3 % [place] % (Auto) 9.6 % Eos % (Auto) 0.6 % Baso % (Auto) 0.1 % Neut # (Auto) 6.28 (1.40-6.50) K/uL Lymph # (Auto) 1.51 (1.2-3.4) K/uL [place] # (Auto) 0.84 H (0.11-0.59) K/uL Eos # (Auto) 0.05 (0-0.50) K/uL Baso # (Auto) 0.01 (0-0.2) K/uL Immature Gran # (Auto) 0.02 (0.01-0.20) K/uL RBC Morphology Unremarkable Sodium (136-145) mmol/L Potassium (3.5-5.1) mmol/L Chloride (98-107) mmol/L Carbon Dioxide (21-32) mmol/L Anion Gap (3-11) BUN (6-23) mg/dl Creatinine (0.6-1.2) mg/dl Est Cr Clr Drug Dosing ml/min Est GFR ( Amer) ml/min Est GFR (Non-Af Amer) ml/min BUN/Creatinine Ratio (10-20) Glucose (70-99(Fasting)) mg/dl Estimat Average Glucose mg/dl Hemoglobin A1c (4.5-5.6) % Calcium (8.5-10.1) mg/dl Magnesium (1.7-2.4) mg/dl 25-OH Vitamin D Total 9.0 L (30-100) ng/ml Urine Color Yellow Urine Appearance Clear (Clear) Urine pH 5.5 (4.5-7.5) Ur Specific [place] 1.014 (1.000-1.030) Urine Protein Negative (Negative) Urine Glucose (UA) Negative (Negative) Urine Ketones Trace H (Negative) Urine Blood Trace H (Negative) Urine Nitrite Negative (Negative) Urine Bilirubin Negative (Negative) Urine Urobilinogen Negative (Negative) Ur Leukocyte Esterase Negative (Negative) Urine WBC (Auto) 1-5 (0-5) /hpf Urine RBC (Auto) 0-4 (0-4) /hpf U Hyaline Cast (Auto) 1-5 (0-5) /lpf U Epithel Cells (Auto) 0-5 (0-5) /lpf Urine Bacteria (Auto) Negative (Negative) Fluid Crystals Fluid Comment Synovial Source Synovial Color Synovial Appearance Synovial WBC (Auto) Synovial WBC Synovial RBC (Auto) Synovial RBC Synov Polynuclear WBCs Synov Mononuclear WBCs Synovial Other Cells Synovial Polynuclear % Synovial Mononuclear % Synovial Crystals 10/31/22 10/30/22 10/30/22 Range/Units 06:20 15:17 15:17 WBC (4.8-10.8) K/ul RBC (4.20-5.40) M/uL Hgb (12.0-16.0) g/dl Hct (37.0-47.0) % MCV (80.0-100.0) fL MCH (25.0-34.0) pg MCHC (32.0-36.0) g/dL RDW Std Deviation (36.4-46.3) fL RDW Coeff of Rad (11.5-14.5) % Plt Count (130-400) K/uL MPV (9.4-12.4) fL Immature Gran % (Auto) % Neut % (Auto) % Lymph % (Auto) % [place] % (Auto) % Eos % (Auto) % Baso % (Auto) % Neut # (Auto) (1.40-6.50) K/uL Lymph # (Auto) (1.2-3.4) K/uL [place] # (Auto) (0.11-0.59) K/uL Eos # (Auto) (0-0.50) K/uL Baso # (Auto) (0-0.2) K/uL Immature Gran # (Auto) (0.01-0.20) K/uL RBC Morphology Sodium 138 (136-145) mmol/L Potassium 4.1 (3.5-5.1) mmol/L Chloride 109 H (98-107) mmol/L Carbon Dioxide 25 (21-32) mmol/L Anion Gap 4 (3-11) BUN 12 (6-23) mg/dl Creatinine 0.73 (0.6-1.2) mg/dl Est Cr Clr Drug Dosing 84.7 ml/min Est GFR ( Amer) 103.8 ml/min Est GFR (Non-Af Amer) 89.5 ml/min BUN/Creatinine Ratio 16.4 (10-20) Glucose 93 (70-99(Fasting)) mg/dl Estimat Average Glucose mg/dl Hemoglobin A1c (4.5-5.6) % Calcium 8.4 L (8.5-10.1) mg/dl Magnesium (1.7-2.4) mg/dl 25-OH Vitamin D Total (30-100) ng/ml Urine Color Urine Appearance (Clear) Urine pH (4.5-7.5) Ur Specific [place] (1.000-1.030) Urine Protein (Negative) Urine Glucose (UA) (Negative) Urine Ketones (Negative) Urine Blood (Negative) Urine Nitrite (Negative) Urine Bilirubin (Negative) Urine Urobilinogen (Negative) Ur Leukocyte Esterase (Negative) Urine WBC (Auto) (0-5) /hpf Urine RBC (Auto) (0-4) /hpf U Hyaline Cast (Auto) (0-5) /lpf U Epithel Cells (Auto) (0-5) /lpf Urine Bacteria (Auto) (Negative) Fluid Crystals Fluid Comment Synovial Source Left Hip Synovial Color Red Synovial Appearance Turbid Synovial WBC (Auto) 90193 H Synovial WBC Synovial RBC (Auto) 725569 Synovial RBC Synov Polynuclear WBCs Synov Mononuclear WBCs Synovial Other Cells Synovial Polynuclear % 95.1 Synovial Mononuclear % 4.9 Synovial Crystals Pending 10/30/22 10/30/22 10/30/22 Range/Units 15:17 15:17 09:54 WBC (4.8-10.8) K/ul RBC (4.20-5.40) M/uL Hgb (12.0-16.0) g/dl Hct (37.0-47.0) % MCV (80.0-100.0) fL MCH (25.0-34.0) pg MCHC (32.0-36.0) g/dL RDW Std Deviation (36.4-46.3) fL RDW Coeff of Rad (11.5-14.5) % Plt Count (130-400) K/uL MPV (9.4-12.4) fL Immature Gran % (Auto) % Neut % (Auto) % Lymph % (Auto) % [place] % (Auto) % Eos % (Auto) % Baso % (Auto) % Neut # (Auto) (1.40-6.50) K/uL Lymph # (Auto) (1.2-3.4) K/uL [place] # (Auto) (0.11-0.59) K/uL Eos # (Auto) (0-0.50) K/uL Baso # (Auto) (0-0.2) K/uL Immature Gran # (Auto) (0.01-0.20) K/uL RBC Morphology Sodium (136-145) mmol/L Potassium (3.5-5.1) mmol/L Chloride (98-107) mmol/L Carbon Dioxide (21-32) mmol/L Anion Gap (3-11) BUN (6-23) mg/dl Creatinine (0.6-1.2) mg/dl Est Cr Clr Drug Dosing ml/min Est GFR ( Amer) ml/min Est GFR (Non-Af Amer) ml/min BUN/Creatinine Ratio (10-20) Glucose (70-99(Fasting)) mg/dl Estimat Average Glucose 117 mg/dl Hemoglobin A1c 5.7 H (4.5-5.6) % Calcium (8.5-10.1) mg/dl Magnesium (1.7-2.4) mg/dl 25-OH Vitamin D Total (30-100) ng/ml Urine Color Urine Appearance (Clear) Urine pH (4.5-7.5) Ur Specific [place] (1.000-1.030) Urine Protein (Negative) Urine Glucose (UA) (Negative) Urine Ketones (Negative) Urine Blood (Negative) Urine Nitrite (Negative) Urine Bilirubin (Negative) Urine Urobilinogen (Negative) Ur Leukocyte Esterase (Negative) Urine WBC (Auto) (0-5) /hpf Urine RBC (Auto) (0-4) /hpf U Hyaline Cast (Auto) (0-5) /lpf U Epithel Cells (Auto) (0-5) /lpf Urine Bacteria (Auto) (Negative) Fluid Crystals Cancelled Fluid Comment Cancelled Synovial Source Cancelled Synovial Color Cancelled Synovial Appearance Cancelled Synovial WBC (Auto) Cancelled Synovial WBC Cancelled Synovial RBC (Auto) Cancelled Synovial RBC Cancelled Synov Polynuclear WBCs Cancelled Synov Mononuclear WBCs Cancelled Synovial Other Cells Cancelled Synovial Polynuclear % Cancelled Synovial Mononuclear % Cancelled Synovial Crystals 10/30/22 10/30/22 Range/Units 09:54 09:54 WBC 10.05 (4.8-10.8) K/ul RBC 4.16 L (4.20-5.40) M/uL Hgb 12.1 (12.0-16.0) g/dl Hct 35.7 L (37.0-47.0) % MCV 85.8 (80.0-100.0) fL MCH 29.1 (25.0-34.0) pg MCHC 33.9 (32.0-36.0) g/dL RDW Std Deviation 39.9 (36.4-46.3) fL RDW Coeff of Rad 12.9 (11.5-14.5) % Plt Count 108 L (130-400) K/uL MPV 9.9 (9.4-12.4) fL Immature Gran % (Auto) 0.3 % Neut % (Auto) 71.4 % Lymph % (Auto) 16.6 % [place] % (Auto) 11.5 % Eos % (Auto) 0.1 % Baso % (Auto) 0.1 % Neut # (Auto) 7.17 H (1.40-6.50) K/uL Lymph # (Auto) 1.67 (1.2-3.4) K/uL [place] # (Auto) 1.16 H (0.11-0.59) K/uL Eos # (Auto) 0.01 (0-0.50) K/uL Baso # (Auto) 0.01 (0-0.2) K/uL Immature Gran # (Auto) 0.03 (0.01-0.20) K/uL RBC Morphology Sodium 137 (136-145) mmol/L Potassium 4.0 (3.5-5.1) mmol/L Chloride 108 H (98-107) mmol/L Carbon Dioxide 22 (21-32) mmol/L Anion Gap 7 (3-11) BUN 17 (6-23) mg/dl Creatinine 0.64 D (0.6-1.2) mg/dl Est Cr Clr Drug Dosing 95.0 ml/min Est GFR ( Amer) 112.4 ml/min Est GFR (Non-Af Amer) 97.0 ml/min BUN/Creatinine Ratio 26.6 H (10-20) Glucose 119 H (70-99(Fasting)) mg/dl Estimat Average Glucose mg/dl Hemoglobin A1c (4.5-5.6) % Calcium 8.9 (8.5-10.1) mg/dl Magnesium 1.7 (1.7-2.4) mg/dl 25-OH Vitamin D Total (30-100) ng/ml Urine Color Urine Appearance (Clear) Urine pH (4.5-7.5) Ur Specific [place] (1.000-1.030) Urine Protein (Negative) Urine Glucose (UA) (Negative) Urine Ketones (Negative) Urine Blood (Negative) Urine Nitrite (Negative) Urine Bilirubin (Negative) Urine Urobilinogen (Negative) Ur Leukocyte Esterase (Negative) Urine WBC (Auto) (0-5) /hpf Urine RBC (Auto) (0-4) /hpf U Hyaline Cast (Auto) (0-5) /lpf U Epithel Cells (Auto) (0-5) /lpf Urine Bacteria (Auto) (Negative) Fluid Crystals Fluid Comment Synovial Source Synovial Color Synovial Appearance Synovial WBC (Auto) Synovial WBC Synovial RBC (Auto) Synovial RBC Synov Polynuclear WBCs Synov Mononuclear WBCs Synovial Other Cells Synovial Polynuclear % Synovial Mononuclear % Synovial Crystals [address] [place] [address] / Director: Mark Ko M.D. Clinical Laboratory Report Name: STACIE DUMAS Acct: [id number] Status: ADM IN : 1960 [facility] [place] Date: 10/30/22 Age: 62 Sex: F Dis Date: Loc: [address]/Bed: N2[facility] Spec : [id number] Collected: 10/30/22 Received: 10/30/[address]: Joaquim Laughlin MD Copy To: Fer Nogueira MD Ordered: Syn, CC/Diff Queries: Specimen Site: Hip, Left Test Result Flag Reference Site Syn Source | Left Hip | | | Syn Color | Red | | | Syn Appear | Turbid | | | Syn WBC (A) | 53086 | H | 0-200 /ul | Syn RBC (A) | [id number] | | /uL | Synovial Poly W | 95.1 | | % | Synovial [place] WBC | 4.9 | | % | Ref Range Comm | | | | | Unless otherwise indicated, Reference intervals have not | been established for this body fluid. The test result must | be integrated into the clinical context for interpretation. Gram Stain Final 10/30/22 Gram Stain Result Many Polys No Organisms Seen Aero/Lita Cult PENDING"
[2022-10-31] MEDS ORDERED: ERGOCALCIFEROL 50,000 UNITS 1250 MCG CAP PO ONE (11:13)
--- NOTE | 2022-10-31 11:23 | Hospitalist Progress Note ---
Date of Service October 31, 2022 Assessment & Plan (1) Septic arthritis: (2) Acute pain of left hip: Plan: Patient presented to the ED with acute onset of left hip pain for 1 day Febrile in ED with 38.5 CT femur showed left hip joint effusion. Patient underwent left hip incision and drainage by orthopedic on 10/30. Fluid analysis; WBC count of 92,000 with 95% polynuclear cells. Gram stainno organism. Culture pending Blood cultureno growth till date Plan; Continue on vancomycin and Zosyn for now. Follow-up on blood culture and wound culture results. Final duration and route of antibiotic depending on blood culture/wound culture results. Infectious disease consulted. PT OT Out of bed Pain control (3) Rheumatoid arthritis: Plan: On Humira. Currently on hold. (4) Vitamin D deficiency: Plan: 25 hydroxy vitamin D level 9. Start 50,000 units every week for 6-week and maintenance dose after that (5) High blood pressure: Plan: Continue on amlodipine. Hold losartan for now. (6) Hyperlipidemia: Plan: On statin Plan Full code DVT prophylaxis SCDs Dispositionfrom home; pending PT OT Admission and Anticipated Discharge Date Admission Date: October 30, 2022 Subjective Patient seen and examined at bedside. She reports that her pain is well controlled. Afebrile, hemodynamically stable. Review of Systems Review of Systems: All systems reviewed & are unremarkable except as noted in Subjective Physical Exam Physical Exam: Constitutional: WD/WN, vitals as above, NAD, sitting up in bed, pleasant, conversing easily Respiratory: normal respiratory effort, lungs clear to auscultation, no wheeze, rales, rhonchi. Normal insp/exp effort, no accessory muscle use Cardiovascular: RRR, no murmur, no edema Vessels: no JVD or carotid bruit Chest: normal inspection of chest Abdomen: normal bowel sounds, soft, nontender, no hepatosplenomegaly Musculoskeletal: Dressing clean, dry and intact. Skin: no rashes, warm and dry normal turgor Neurologic: PERRL, EOMI, accommodation nl, no face palsy, no dysarthria CN's II- XI intact bilaterally and moves all extremities Psychiatric: A+Ox3, euthymic affect Lymphatic: no cervical or axillary lymphadenopathy : deferred Results & Data Results & Data Vital Signs (Past 12 Hours) Vital Signs Temp Pulse Pulse Pulse Resp BP Pulse Ox 10/31/22 09:00 37.2 C 88 16 114/66 92 10/31/22 07:20 76 10/31/22 04:00 37.4 C 66 18 109/68 94 O2 Del Method 10/31/22 09:00 Room Air 10/31/22 07:20 10/31/22 04:00 Room Air Laboratory Results Laboratory Results WBC 8.71 K/ul (4.8-10.8) 10/31/22 06:20 RBC 3.71 M/uL (4.20-5.40) L 10/31/22 06:20 Hgb 10.9 g/dl (12.0-16.0) L 10/31/22 06:20 Hct 32.9 % (37.0-47.0) L 10/31/22 06:20 MCV 88.7 fL (80.0-100.0) 10/31/22 06:20 MCH 29.4 pg (25.0-34.0) 10/31/22 06:20 MCHC 33.1 g/dL (32.0-36.0) 10/31/22 06:20 RDW Std Deviation 41.0 fL (36.4-46.3) 10/31/22 06:20 RDW Coeff of Rad 12.8 % (11.5-14.5) 10/31/22 06:20 Plt Count 93 K/uL (130-400) L 10/31/22 06:20 MPV 10.0 fL (9.4-12.4) 10/31/22 06:20 Immature Gran % (Auto) 0.2 % 10/31/22 06:20 Neut % (Auto) 72.2 % 10/31/22 06:20 Lymph % (Auto) 17.3 % 10/31/22 06:20 [place] % (Auto) 9.6 % 10/31/22 06:20 Eos % (Auto) 0.6 % 10/31/22 06:20 Baso % (Auto) 0.1 % 10/31/22 06:20 Neut # (Auto) 6.28 K/uL (1.40-6.50) 10/31/22 06:20 Lymph # (Auto) 1.51 K/uL (1.2-3.4) 10/31/22 06:20 [place] # (Auto) 0.84 K/uL (0.11-0.59) H 10/31/22 06:20 Eos # (Auto) 0.05 K/uL (0-0.50) 10/31/22 06:20 Baso # (Auto) 0.01 K/uL (0-0.2) 10/31/22 06:20 Immature Gran # (Auto) 0.02 K/uL (0.01-0.20) 10/31/22 06:20 RBC Morphology Unremarkable 10/31/22 06:20 ESR 30 mm/hr (0-30) 10/29/22 21:50 Sodium 138 mmol/L (136-145) 10/31/22 06:20 Potassium 4.1 mmol/L (3.5-5.1) 10/31/22 06:20 Chloride 109 mmol/L (98-107) H 10/31/22 06:20 Carbon Dioxide 25 mmol/L (21-32) 10/31/22 06:20 Anion Gap 4 (3-11) 10/31/22 06:20 BUN 12 mg/dl (6-23) 10/31/22 06:20 Creatinine 0.73 mg/dl (0.6-1.2) 10/31/22 06:20 Est Cr Clr Drug Dosing 84.7 ml/min 10/31/22 06:20 Est GFR ( Amer) 103.8 ml/min 10/31/22 06:20 Est GFR (Non-Af Amer) 89.5 ml/min 10/31/22 06:20 BUN/Creatinine Ratio 16.4 (10-20) 10/31/22 06:20 Glucose 93 mg/dl (70-99(Fasting)) 10/31/22 06:20 Estimat Average Glucose 117 mg/dl 10/30/22 09:54 Hemoglobin A1c 5.7 % (4.5-5.6) H 10/30/22 09:54 Lactate 1.0 mmol/L (0.4-2.0) 10/29/22 23:21 Calcium 8.4 mg/dl (8.5-10.1) L 10/31/22 06:20 Magnesium 1.7 mg/dl (1.7-2.4) 10/30/22 09:54 Total Bilirubin 0.9 mg/dl (0.2-1.0) 10/29/22 21:50 AST 69 U/L (13-39) H 10/29/22 21:50 ALT 57 U/L (7-52) H 10/29/22 21:50 Alkaline Phosphatase 200 U/L (34-104) H 10/29/22 21:50 C-Reactive Protein 0.88 mg/dl (0-0.5) H 10/29/22 21:50 Total Protein 8.1 gm/dl (6.0-8.3) 10/29/22 21:50 Albumin 4.5 gm/dl (3.4-5.0) 10/29/22 21:50 Globulin 3.6 gm/dl (2.5-4.0) 10/29/22 21:50 Albumin/Globulin Ratio 1.3 (0.9-2) 10/29/22 21:50 25-OH Vitamin D Total 9.0 ng/ml (30-100) L 10/31/22 06:20 Procalcitonin 0.05 ng/ml (0-0.5) 10/29/22 21:50 Urine Color Yellow 10/31/22 08:45 Urine Appearance Clear (Clear) 10/31/22 08:45 Urine pH 5.5 (4.5-7.5) 10/31/22 08:45 Ur Specific [place] 1.014 (1.000-1.030) 10/31/22 08:45 Urine Protein Negative (Negative) 10/31/22 08:45 Urine Glucose (UA) Negative (Negative) 10/31/22 08:45 Urine Ketones Trace (Negative) H 10/31/22 08:45 Urine Blood Trace (Negative) H 10/31/22 08:45 Urine Nitrite Negative (Negative) 10/31/22 08:45 Urine Bilirubin Negative (Negative) 10/31/22 08:45 Urine Urobilinogen Negative (Negative) 10/31/22 08:45 Ur Leukocyte Esterase Negative (Negative) 10/31/22 08:45 Urine WBC (Auto) 1-5 /hpf (0-5) 10/31/22 08:45 Urine RBC (Auto) 0-4 /hpf (0-4) 10/31/22 08:45 U Hyaline Cast (Auto) 1-5 /lpf (0-5) 10/31/22 08:45 U Epithel Cells (Auto) 0-5 /lpf (0-5) 10/31/22 08:45 Urine Bacteria (Auto) Negative (Negative) 10/31/22 08:45 Fluid Crystals Cancelled 10/30/22 15:17 Fluid Comment 10/30/22 15:17 Fluid Comment Cancelled 10/30/22 15:17 Synovial Source Cancelled 10/30/22 15:17 Synovial Source Left Hip 10/30/22 15:17 Synovial Color Cancelled 10/30/22 15:17 Synovial Color Red 10/30/22 15:17 Synovial Appearance Cancelled 10/30/22 15:17 Synovial Appearance Turbid 10/30/22 15:17 Synovial WBC (Auto) 94679 /ul (0-200) H 10/30/22 15:17 Synovial WBC (Auto) Cancelled 10/30/22 15:17 Synovial WBC Cancelled 10/30/22 15:17 Synovial RBC (Auto) 527697 /uL 10/30/22 15:17 Synovial RBC (Auto) Cancelled 10/30/22 15:17 Synovial RBC Cancelled 10/30/22 15:17 Synov Polynuclear WBCs Cancelled 10/30/22 15:17 Synov Mononuclear WBCs Cancelled 10/30/22 15:17 Synovial Other Cells Cancelled 10/30/22 15:17 Synovial Polynuclear % 95.1 % 10/30/22 15:17 Synovial Polynuclear % Cancelled 10/30/22 15:17 Synovial Mononuclear % 4.9 % 10/30/22 15:17 Synovial Mononuclear % Cancelled 10/30/22 15:17 SARS-CoV-2 (PCR) NEGATIVE (Negative) 10/30/22 02:30 Influenza Type A (PCR) Negative (Neg) 10/30/22 02:30 Influenza Type B (PCR) Negative (Neg) 10/30/22 02:30 RSV (RT-PCR) Negative (Neg) 10/30/22 02:30 Impressions Hip/Pelvis X-Ray 10/29/22 22:51 XR hip LT 2V w pelvis HISTORY: 62 years-old Female left pelvic pain acute pain of the pelvis and left hip COMPARISON: CT left femur of same day TECHNIQUE: AP view of the pelvis with 2 views of the left hip FINDINGS: Moderate degeneration of the pubic symphysis. No acute fracture, dislocation, avascular necrosis or significant osteoarthritis. Unremarkable soft tissues. IMPRESSION: No acute fracture or dislocation. ACT 112: Negative or not required by law. The above report was generated using voice recognition software. It may contain grammatical, syntax or spelling errors. Electronically signed by: Emre Moser M.D. 10/30/2022 7:05 AM Abdomen/Pelvis CT 10/29/22 23:57 Exam(s): CT ABDOMEN + PELVIS With Contrast IV Amt: 85 ml optiray 350 EXAM: CT Abdomen and Pelvis With Intravenous Contrast CLINICAL HISTORY: Reason for exam: left groin pain. TECHNIQUE: Axial computed tomography images of the abdomen and pelvis with intravenous contrast. Automated exposure control was utilized for the study. A dose lowering technique was utilized adhering to the principles of ALARA. CONTRAST: Patient received 85 ml optiray 350 of IV contrast COMPARISON: No relevant prior studies available. FINDINGS: Lung bases: Unremarkable. No mass. No consolidation. ABDOMEN: Liver: Early hepatic cirrhosis. Splenomegaly. Cholecystectomy. Gallbladder and bile ducts: See above. Pancreas: Unremarkable. No mass. No ductal dilation. Spleen: See above. Adrenals: Unremarkable. No mass. Kidneys and ureters: Unremarkable. No hydronephrosis or delayed nephrogram. Stomach and bowel: Unremarkable. No obstruction. No mucosal thickening. PELVIS: Appendix: Appendectomy. Bladder: Unremarkable. No mass. Reproductive: Hysterectomy. ABDOMEN and PELVIS: Intraperitoneal space: Unremarkable. No free air. No significant fluid collection. Bones/joints: Degenerative changes of the spine. No acute fracture. No dislocation. Soft tissues: Unremarkable. Vasculature: Unremarkable. No abdominal aortic aneurysm. Lymph nodes: Unremarkable. No enlarged lymph nodes. IMPRESSION: 1. Early hepatic cirrhosis. Splenomegaly. Cholecystectomy. 2. Appendectomy. Electronically signed by: Christopher Milan MD 10/30/22 01:[address] 10/29/22 23:57 Exam(s): CT EXTREMITY LEFT LOWER With Contrast IV Amt: 85 ml optiray 350 EXAM: CT Left Lower Extremity With Intravenous Contrast CLINICAL HISTORY: Reason for exam: left thigh pain. TECHNIQUE: Axial computed tomography images of the left lower extremity with intravenous contrast. Automated exposure control was utilized for the study. A dose lowering technique was utilized adhering to the principles of ALARA. CONTRAST: Patient received 85 ml optiray 350 of IV contrast COMPARISON: No relevant prior studies available. FINDINGS: Bones/joints: Left hip joint effusion. Consider left hip MRI if clinically indicated. No acute fracture. No dislocation. Soft tissues: Unremarkable. No abnormal contrast enhancement. IMPRESSION: Left hip joint effusion. Consider left hip MRI if clinically indicated. Electronically signed by: Christopher Milan MD 10/30/22 01:54 AM (3) Rheumatoid arthritis Rheumatoid arthritis location: unspecified site Rheumatoid factor presence: unspecified presence Qualified Code(s): M06.9 - Rheumatoid arthritis, unspecified
[2022-10-31] MEDS: ACETAMINOPHEN 325 MG TAB PO PRN ×2 (12:13→22:33)
[2022-11-01] MEDS: ACETAMINOPHEN 325 MG TAB PO PRN ×2 (04:06→13:42)
[2022-11-01] MEDS ORDERED: VANCOMYCIN LEVEL ONE (05:30)
[2022-11-01] MEDS: VANCOMYCIN HCL 1,000 MG in SODIUM CHLORIDE 0.9% 250 ML IV SCH ×3 (05:59→21:15)
[2022-11-01 07:03] LABS: Basophils # (auto) 0.01 K/uL (0-0.2); Basophils % (auto) 0.1 %; Eosinophils # (auto) 0.07 K/uL (0-0.50); Hematocrit (blood only) 30.1 % (37.0-47.0); Hemoglobin 10.1 g/dl (12.0-16.0); Immature Granulocytes # (auto) 0.03 K/uL (0.01-0.20); Immature Granulocytes % (auto) 0.4 %; Lymphocytes # (auto) 1.47 K/uL (1.2-3.4); Lymphocytes % (auto) 21.6 %; Mean Corpuscular Hemoglobin 29.4 pg (25.0-34.0); Mean Corpuscular Hgb Conc 33.6 g/dL (32.0-36.0); Mean Corpuscular Volume 87.5 fL (80.0-100.0); Mean Platelet Volume 10.2 fL (9.4-12.4); Monocytes # (auto) 0.72 K/uL (0.11-0.59); Monocytes % (auto) 10.6 %; Neutrophils # (auto) 4.51 K/uL (1.40-6.50); Neutrophils % (auto) 66.3 %; Platelet Count 96 K/uL (130-400); RDW Coefficient of Variation 12.5 % (11.5-14.5); RDW Standard Deviation 39.8 fL (36.4-46.3); Red Blood Count 3.44 M/uL (4.20-5.40); White Blood Count 6.81 K/ul (4.8-10.8)
[2022-11-01 07:34] LABS: Albumin Globulin Ratio 1.2 (0.9-2); Albumin Level 3.3 gm/dl (3.4-5.0); BUN Creatinine Ratio 17.7 (10-20); Calcium 8.4 mg/dl (8.5-10.1); Creatinine Clr Calc Pharmacy 100.2 ml/min; Est GFR (African American) 113.6 ml/min; Globulin 2.7 gm/dl (2.5-4.0); Potassium 3.6 mmol/L (3.5-5.1)
[2022-11-01] MEDS: PIPERACILLIN/TAZOBACTAM 3.375 GM in DEXTROSE 5% 100 ML IV SCH ×2 (09:25→17:44)
[2022-11-01] MEDS: PANTOprazole 40 MG TAB PO SCH (09:26)
[2022-11-01] MEDS: ATORVASTATIN 20 MG TAB PO SCH (09:26)
--- NOTE | 2022-11-01 09:57 | Orthopedic Progress Note ---
"Date of Service November 01, 2022 Assessment & Plan (1) Effusion of hip joint, left: Plan: POD #2 s/p I&D L hip, septic arthritis versus inflammatory process, doing well Resume diet. WBAT. Continue IV Abiotics. ID consult pending. HVAC removed 10/31/22. Replaced dressing 11/01/22. OOB to chair. Continue pain control. Continue to follow labs. DVT prophylaxis: TEDs 3 weeks, SCDs while in hospital, medicinal per primary service. PT/OT. D/C planning. Continue care per primary service. Present on Admission?: Yes Admission and Anticipated Discharge Date Admission Date: October 30, 2022 Subjective Feeling much better, I have been been up on my own. Physical Exam Physical Exam: Appears much more comfortable in bed. LLE: Sensation to light touch intact distally, decreased sensation just distal to incision for a few cm, preserved along incision. 2+ DP pulse. moving toes and ankle. Calfs soft and non-tender. ROM of hip, no pain. Incision is clean, dry, intact. Results & Data Vital Signs (Past 12 Hours) Vital Signs Temp Pulse Pulse Pulse Resp BP BP 11/01/22 08:04 36.8 C 71 17 125/78 11/01/22 07:26 36.7 C 75 16 134/64 10/31/22 22:00 80 11/01/22 04:02 37.2 C 73 18 122/75 10/31/22 22:00 38.5 C H 84 20 121/71 Pulse Ox O2 Del Method 11/01/22 08:04 94 Room Air 11/01/22 07:26 93 Room Air 10/31/22 22:00 11/01/22 04:02 94 Room Air 10/31/22 22:00 94 Room Air Laboratory Results Test Result Flag Reference Site Syn Source | Left Hip | | | Syn Color | Red | | | Syn Appear | Turbid | | | Syn WBC (A) | 61203 | H | 0-200 /ul | Syn RBC (A) | [id number] | | /uL | Synovial Poly W | 95.1 | | % | Synovial [place] WBC | 4.9 | | % | Ref Range Comm | | | | | Unless otherwise indicated, Reference intervals have not | been established for this body fluid. The test result must | be integrated into the clinical context for interpretation. Source: Hip,Left OV Order: Ordered: Aer/Lita Cult/Sm Comments: Comment Culture set #1 Superficial left hip. Procedure Result Verified Site Gram Stain Final 10/30/22 Gram Stain Result No WBCs Seen, No Organisms Seen Aero/Lita Cult Preliminary 10/31/22 No growth to date. Source: Hip,Left OV Order: Ordered: Aer/Lita Cult/Sm Comments: Comment Culture set #2 Deep left hip. Procedure Result Verified Site Gram Stain Final 10/30/22 Gram Stain Result Many Polys No Organisms Seen Aero/Lita Cult Preliminary 10/31/22 No growth to date. Source: Hip,Left OV Order: Ordered: Aer/Lita Cult/Sm Comments: Comment CS#3 PLEASE ADD crystral and cell count. Procedure Result Verified Site Gram Stain Final 10/30/22 Gram Stain Result Many Polys No Organisms Seen Aero/Lita Cult Preliminary 10/31/22 No growth to date. Source: Blood OV Order: Ordered: Blood Culture Comments: Comment Default is separate sites, same time Procedure Result Verified Site Blood Culture Aerobic Preliminary 11/01/22 No growth in Aerobic bottle after 48 hours. Blood Culture Anaerobic Preliminary 11/01/22 No growth in Anaerobic bottle after 48 hours."
--- NOTE | 2022-11-01 11:05 | Pharmacy Report ---
Pharmacy PK ABX Note - Date of Service November 01, 2022 - Assessment and Plan Assessment 11/01: Blood cultures/hip cultures currently negative to date. ID consulted. Continuing vancomycin/zosyn for now. Random level this AM suggest subtherapeutic dosing, will increase dose. 62 year old F receiving Vancomycin and Zosyn for treatment of possible septic arthritis of hip. * 24 hr Tmax of 38.5oC. White count down to 10k. Significant improvement in renal fxn today. Lactate and procal negative. * Blood cultures pending. * To OR today for I&D of hip. Await OR cultures. Plan 11/01: * Level this AM 7.4, predicts AUC/EMMETT below target range * Increase dose to 1000 mg q8H * Random level ordered for 11/02 @1330 Vancomycin * Loading dose: 1750 mg IV x 1 * Maintenance dose: 1000 mg IV every 12 hours * Regimen is predicted to achieve target AUC/EMMETT of 400-600 mg/L.hr * Random level ordered for: 11/01/22 Pharmacy will continue to follow and will adjust dose/frequency as necessary. Thank you. Pharmacy has transitioned to AUC monitoring for vancomycin. AUC/EMMETT is the preferred PK/PD target and is associated with decreased risk of nephrotoxicity compared to traditional trough targets.
--- NOTE | 2022-11-01 12:19 | Hospitalist Progress Note ---
Date of Service November 01, 2022 Assessment & Plan (1) Septic arthritis: (2) Acute pain of left hip: Plan: Patient presented to the ED with acute onset of left hip pain for 1 day Febrile in ED with 38.5 CT femur showed left hip joint effusion. Patient underwent left hip incision and drainage by orthopedic on 10/30. Fluid analysis; WBC count of 92,000 with 95% polynuclear cells. Gram stainno organism. Culture no growth till date Blood cultureno growth till date Plan; Continue on vancomycin and Zosyn for now. Follow-up on blood culture and wound culture results. Final duration and route of antibiotic depending on blood culture/wound culture results. Infectious disease consulted; to see the patient tomorrow. PT OTrecommend rehab. Patient lives with her who had just recently undergone bilateral knee replacement. She may need placement. DVT prophylaxis with Lovenox started. Pain control (3) Rheumatoid arthritis: Plan: On Humira. Currently on hold. (4) Vitamin D deficiency: Plan: 25 hydroxy vitamin D level 9. Start 50,000 units every week for 6-week and maintenance dose after that (5) High blood pressure: Plan: Hold antihypertensive as patient felt dizzy while standing up yesterday and her blood pressure dropped. (6) Hyperlipidemia: Plan: On statin Plan Full code DVT prophylaxis Lovenox Dispositionfrom home; PT OT recommends rehab. Continue to hospitalized due to need for IV antibiotic for septic arthritis. Infectious disease consultation pending to determine route and duration of antibiotics. Admission and Anticipated Discharge Date Admission Date: October 30, 2022 Subjective Patient seen and examined at bedside. She is sitting up on the chair at the side of the bed. Fever overnight with 38.5 C. Reported chills during that period. She reports that the pain in the left hip has improved compared to admission. Physical Exam Physical Exam: Constitutional: WD/WN, vitals as above, NAD, sitting up in bed, pleasant, conversing easily Respiratory: normal respiratory effort, lungs clear to auscultation, no wheeze, rales, rhonchi. Normal insp/exp effort, no accessory muscle use Cardiovascular: RRR, no murmur, no edema Vessels: no JVD or carotid bruit Chest: normal inspection of chest Abdomen: normal bowel sounds, soft, nontender, no hepatosplenomegaly Musculoskeletal: Dressing clean, dry and intact. Tenderness on palpation Skin: no rashes, warm and dry normal turgor Neurologic: PERRL, EOMI, accommodation nl, no face palsy, no dysarthria CN's II- XI intact bilaterally and moves all extremities Psychiatric: A+Ox3, euthymic affect Lymphatic: no cervical or axillary lymphadenopathy : deferred Results & Data Results & Data Vital Signs (Past 12 Hours) Vital Signs Temp Pulse Pulse Resp BP BP Pulse Ox 11/01/22 10:17 11/01/22 08:04 36.8 C 71 17 125/78 94 11/01/22 07:26 36.7 C 75 16 134/64 93 11/01/22 04:02 37.2 C 73 18 122/75 94 O2 Del Method 11/01/22 10:17 Room Air 11/01/22 08:04 Room Air 11/01/22 07:26 Room Air 11/01/22 04:02 Room Air Laboratory Results Laboratory Results WBC 6.81 K/ul (4.8-10.8) 11/01/22 05:54 RBC 3.44 M/uL (4.20-5.40) L 11/01/22 05:54 Hgb 10.1 g/dl (12.0-16.0) L 11/01/22 05:54 Hct 30.1 % (37.0-47.0) L 11/01/22 05:54 MCV 87.5 fL (80.0-100.0) 11/01/22 05:54 MCH 29.4 pg (25.0-34.0) 11/01/22 05:54 MCHC 33.6 g/dL (32.0-36.0) 11/01/22 05:54 RDW Std Deviation 39.8 fL (36.4-46.3) 11/01/22 05:54 RDW Coeff of Rad 12.5 % (11.5-14.5) 11/01/22 05:54 Plt Count 96 K/uL (130-400) L 11/01/22 05:54 MPV 10.2 fL (9.4-12.4) 11/01/22 05:54 Immature Gran % (Auto) 0.4 % 11/01/22 05:54 Neut % (Auto) 66.3 % 11/01/22 05:54 Lymph % (Auto) 21.6 % 11/01/22 05:54 [place] % (Auto) 10.6 % 11/01/22 05:54 Eos % (Auto) 1.0 % 11/01/22 05:54 Baso % (Auto) 0.1 % 11/01/22 05:54 Neut # (Auto) 4.51 K/uL (1.40-6.50) 11/01/22 05:54 Lymph # (Auto) 1.47 K/uL (1.2-3.4) 11/01/22 05:54 [place] # (Auto) 0.72 K/uL (0.11-0.59) H 11/01/22 05:54 Eos # (Auto) 0.07 K/uL (0-0.50) 11/01/22 05:54 Baso # (Auto) 0.01 K/uL (0-0.2) 11/01/22 05:54 Immature Gran # (Auto) 0.03 K/uL (0.01-0.20) 11/01/22 05:54 RBC Morphology Unremarkable 10/31/22 06:20 ESR 30 mm/hr (0-30) 10/29/22 21:50 Sodium 140 mmol/L (136-145) 11/01/22 05:54 Potassium 3.6 mmol/L (3.5-5.1) 11/01/22 05:54 Chloride 110 mmol/L (98-107) H 11/01/22 05:54 Carbon Dioxide 24 mmol/L (21-32) 11/01/22 05:54 Anion Gap 6 (3-11) 11/01/22 05:54 BUN 11 mg/dl (6-23) 11/01/22 05:54 Creatinine 0.62 mg/dl (0.6-1.2) 11/01/22 05:54 Est Cr Clr Drug Dosing 100.2 ml/min 11/01/22 05:54 Est GFR ( Amer) 113.6 ml/min 11/01/22 05:54 Est GFR (Non-Af Amer) 98.0 ml/min 11/01/22 05:54 BUN/Creatinine Ratio 17.7 (10-20) 11/01/22 05:54 Glucose 112 mg/dl (70-99(Fasting)) H 11/01/22 05:54 Estimat Average Glucose 117 mg/dl 10/30/22 09:54 Hemoglobin A1c 5.7 % (4.5-5.6) H 10/30/22 09:54 Lactate 1.0 mmol/L (0.4-2.0) 10/29/22 23:21 Calcium 8.4 mg/dl (8.5-10.1) L 11/01/22 05:54 Magnesium 1.7 mg/dl (1.7-2.4) 10/30/22 09:54 Total Bilirubin 1.0 mg/dl (0.2-1.0) 11/01/22 05:54 AST 35 U/L (13-39) 11/01/22 05:54 ALT 70 U/L (7-52) H 11/01/22 05:54 Alkaline Phosphatase 137 U/L (34-104) H 11/01/22 05:54 C-Reactive Protein 0.88 mg/dl (0-0.5) H 10/29/22 21:50 Total Protein 6.0 gm/dl (6.0-8.3) 11/01/22 05:54 Albumin 3.3 gm/dl (3.4-5.0) L 11/01/22 05:54 Globulin 2.7 gm/dl (2.5-4.0) 11/01/22 05:54 Albumin/Globulin Ratio 1.2 (0.9-2) 11/01/22 05:54 25-OH Vitamin D Total 9.0 ng/ml (30-100) L 10/31/22 06:20 Procalcitonin 0.05 ng/ml (0-0.5) 10/29/22 21:50 Urine Color Yellow 10/31/22 08:45 Urine Appearance Clear (Clear) 10/31/22 08:45 Urine pH 5.5 (4.5-7.5) 10/31/22 08:45 Ur Specific [place] 1.014 (1.000-1.030) 10/31/22 08:45 Urine Protein Negative (Negative) 10/31/22 08:45 Urine Glucose (UA) Negative (Negative) 10/31/22 08:45 Urine Ketones Trace (Negative) H 10/31/22 08:45 Urine Blood Trace (Negative) H 10/31/22 08:45 Urine Nitrite Negative (Negative) 10/31/22 08:45 Urine Bilirubin Negative (Negative) 10/31/22 08:45 Urine Urobilinogen Negative (Negative) 10/31/22 08:45 Ur Leukocyte Esterase Negative (Negative) 10/31/22 08:45 Urine WBC (Auto) 1-5 /hpf (0-5) 10/31/22 08:45 Urine RBC (Auto) 0-4 /hpf (0-4) 10/31/22 08:45 U Hyaline Cast (Auto) 1-5 /lpf (0-5) 10/31/22 08:45 U Epithel Cells (Auto) 0-5 /lpf (0-5) 10/31/22 08:45 Urine Bacteria (Auto) Negative (Negative) 10/31/22 08:45 Fluid Crystals Cancelled 10/30/22 15:17 Fluid Comment 10/30/22 15:17 Fluid Comment Cancelled 10/30/22 15:17 Synovial Source Cancelled 10/30/22 15:17 Synovial Source Left Hip 10/30/22 15:17 Synovial Color Cancelled 10/30/22 15:17 Synovial Color Red 10/30/22 15:17 Synovial Appearance Cancelled 10/30/22 15:17 Synovial Appearance Turbid 10/30/22 15:17 Synovial WBC (Auto) 59327 /ul (0-200) H 10/30/22 15:17 Synovial WBC (Auto) Cancelled 10/30/22 15:17 Synovial WBC Cancelled 10/30/22 15:17 Synovial RBC (Auto) [id number] /uL 10/30/22 15:17 Synovial RBC (Auto) Cancelled 10/30/22 15:17 Synovial RBC Cancelled 10/30/22 15:17 Synov Polynuclear WBCs Cancelled 10/30/22 15:17 Synov Mononuclear WBCs Cancelled 10/30/22 15:17 Synovial Other Cells Cancelled 10/30/22 15:17 Synovial Polynuclear % 95.1 % 10/30/22 15:17 Synovial Polynuclear % Cancelled 10/30/22 15:17 Synovial Mononuclear % 4.9 % 10/30/22 15:17 Synovial Mononuclear % Cancelled 10/30/22 15:17 Random Vancomycin 7.4 mcg/ml (10-20) L 11/01/22 05:54 SARS-CoV-2 (PCR) NEGATIVE (Negative) 10/30/22 02:30 Influenza Type A (PCR) Negative (Neg) 10/30/22 02:30 Influenza Type B (PCR) Negative (Neg) 10/30/22 02:30 RSV (RT-PCR) Negative (Neg) 10/30/22 02:30 Impressions Hip/Pelvis X-Ray 10/29/22 22:51 XR hip LT 2V w pelvis HISTORY: 62 years-old Female left pelvic pain acute pain of the pelvis and left hip COMPARISON: CT left femur of same day TECHNIQUE: AP view of the pelvis with 2 views of the left hip FINDINGS: Moderate degeneration of the pubic symphysis. No acute fracture, dislocation, avascular necrosis or significant osteoarthritis. Unremarkable soft tissues. IMPRESSION: No acute fracture or dislocation. ACT 112: Negative or not required by law. The above report was generated using voice recognition software. It may contain grammatical, syntax or spelling errors. Electronically signed by: Emre Moser M.D. 10/30/2022 7:05 AM Abdomen/Pelvis CT 10/29/22 23:57 Exam(s): CT ABDOMEN + PELVIS With Contrast IV Amt: 85 ml optiray 350 EXAM: CT Abdomen and Pelvis With Intravenous Contrast CLINICAL HISTORY: Reason for exam: left groin pain. TECHNIQUE: Axial computed tomography images of the abdomen and pelvis with intravenous contrast. Automated exposure control was utilized for the study. A dose lowering technique was utilized adhering to the principles of ALARA. CONTRAST: Patient received 85 ml optiray 350 of IV contrast COMPARISON: No relevant prior studies available. FINDINGS: Lung bases: Unremarkable. No mass. No consolidation. ABDOMEN: Liver: Early hepatic cirrhosis. Splenomegaly. Cholecystectomy. Gallbladder and bile ducts: See above. Pancreas: Unremarkable. No mass. No ductal dilation. Spleen: See above. Adrenals: Unremarkable. No mass. Kidneys and ureters: Unremarkable. No hydronephrosis or delayed nephrogram. Stomach and bowel: Unremarkable. No obstruction. No mucosal thickening. PELVIS: Appendix: Appendectomy. Bladder: Unremarkable. No mass. Reproductive: Hysterectomy. ABDOMEN and PELVIS: Intraperitoneal space: Unremarkable. No free air. No significant fluid collection. Bones/joints: Degenerative changes of the spine. No acute fracture. No dislocation. Soft tissues: Unremarkable. Vasculature: Unremarkable. No abdominal aortic aneurysm. Lymph nodes: Unremarkable. No enlarged lymph nodes. IMPRESSION: 1. Early hepatic cirrhosis. Splenomegaly. Cholecystectomy. 2. Appendectomy. Electronically signed by: Christopher Milan MD 10/30/22 01:[address] 10/29/22 23:57 Exam(s): CT EXTREMITY LEFT LOWER With Contrast IV Amt: 85 ml optiray 350 EXAM: CT Left Lower Extremity With Intravenous Contrast CLINICAL HISTORY: Reason for exam: left thigh pain. TECHNIQUE: Axial computed tomography images of the left lower extremity with intravenous contrast. Automated exposure control was utilized for the study. A dose lowering technique was utilized adhering to the principles of ALARA. CONTRAST: Patient received 85 ml optiray 350 of IV contrast COMPARISON: No relevant prior studies available. FINDINGS: Bones/joints: Left hip joint effusion. Consider left hip MRI if clinically indicated. No acute fracture. No dislocation. Soft tissues: Unremarkable. No abnormal contrast enhancement. IMPRESSION: Left hip joint effusion. Consider left hip MRI if clinically indicated. Electronically signed by: Christopher Milan MD 10/30/22 01:54 AM (3) Rheumatoid arthritis Rheumatoid arthritis location: unspecified site Rheumatoid factor presence: unspecified presence Qualified Code(s): M06.9 - Rheumatoid arthritis, unspecified
[2022-11-01] MEDS ORDERED: ENOXAPARIN INJ 40 MG/0.4 ML SYR SQ SCH (12:30)
[2022-11-01] MEDS ORDERED: HYDROCORTISONE 1% CRM 30 GM TUBE EXT PRN (15:08)
[2022-11-01] MEDS: HEPARIN SOD 5,000 UNIT/0.5 ML VIAL SQ SCH ×2 (17:41→21:15)
[2022-11-02] MEDS: PIPERACILLIN/TAZOBACTAM 3.375 GM in DEXTROSE 5% 100 ML IV SCH ×3 (00:24→16:09)
[2022-11-02] MEDS: ACETAMINOPHEN 325 MG TAB PO PRN ×2 (00:25→21:32)
[2022-11-02] MEDS: oxyCODONE HCL IR 5 MG TAB (IMMEDIATE RELEASE) PO PRN ×3 (00:25→21:33)
[2022-11-02] MEDS: VANCOMYCIN HCL 1,000 MG in SODIUM CHLORIDE 0.9% 250 ML IV SCH ×3 (05:50→21:32)
[2022-11-02] MEDS: HEPARIN SOD 5,000 UNIT/0.5 ML VIAL SQ SCH ×3 (05:50→21:33)
[2022-11-02 06:42] LABS: Basophils # (auto) 0.02 K/uL (0-0.2); Basophils % (auto) 0.3 %; Eosinophils # (auto) 0.16 K/uL (0-0.50); Eosinophils % (auto) 2.7 %; Hematocrit (blood only) 31.1 % (37.0-47.0); Hemoglobin 10.4 g/dl (12.0-16.0); Immature Granulocytes # (auto) 0.02 K/uL (0.01-0.20); Immature Granulocytes % (auto) 0.3 %; Lymphocytes % (auto) 29.9 %; Mean Corpuscular Hemoglobin 29.1 pg (25.0-34.0); Mean Corpuscular Hgb Conc 33.4 g/dL (32.0-36.0); Mean Corpuscular Volume 86.9 fL (80.0-100.0); Mean Platelet Volume 10.2 fL (9.4-12.4); Monocytes # (auto) 0.63 K/uL (0.11-0.59); Monocytes % (auto) 10.5 %; Neutrophils # (auto) 3.39 K/uL (1.40-6.50); Neutrophils % (auto) 56.3 %; Platelet Count 125 K/uL (130-400); RDW Coefficient of Variation 12.2 % (11.5-14.5); RDW Standard Deviation 39.2 fL (36.4-46.3); Red Blood Count 3.58 M/uL (4.20-5.40); White Blood Count 6.02 K/ul (4.8-10.8)
[2022-11-02 06:53] LABS: Albumin Globulin Ratio 1.2 (0.9-2); Albumin Level 3.4 gm/dl (3.4-5.0); BUN Creatinine Ratio 15.3 (10-20); Bilirubin,Total 0.8 mg/dl (0.2-1.0); Calcium 8.6 mg/dl (8.5-10.1); Creatinine Clr Calc Pharmacy 86.3 ml/min; Est GFR (African American) 105.5 ml/min; Globulin 2.8 gm/dl (2.5-4.0); Potassium 3.6 mmol/L (3.5-5.1); Total Protein 6.2 gm/dl (6.0-8.3)
--- NOTE | 2022-11-02 08:30 | Orthopedic Progress Note ---
Date of Service November 02, 2022 Assessment & Plan (1) Effusion of hip joint, left: Plan: POD #3 s/p I&D L hip, septic arthritis versus inflammatory process, doing well Resume diet. WBAT. Continue IV Abiotics. ID consult pending. HVAC removed 10/31/22. Replaced dressing 11/01/22. OOB to chair. Continue pain control. Continue to follow labs. DVT prophylaxis: TEDs 3 weeks, SCDs while in hospital, medicinal per primary service. PT/OT. D/C planning. Continue care per primary service. Admission and Anticipated Discharge Date Admission Date: October 30, 2022 Subjective L hip pain improved, still weak Patient reports strong family history of Gout with her father and brother. Physical Exam Physical Exam: Appears much more comfortable in bed. LLE: Sensation to light touch intact distally, decreased sensation just distal to incision for a few cm, preserved along incision. 2+ DP pulse. moving toes and ankle. Calfs soft and non-tender. ROM of hip, no pain. Dressing is clean, dry, intact. Results & Data Vital Signs (Past 12 Hours) Vital Signs Temp Pulse Pulse Pulse Resp BP BP 11/02/22 07:28 36.6 C 80 18 132/71 11/02/22 07:17 72 11/02/22 03:41 36.5 C 69 18 130/77 11/01/22 22:00 78 11/01/22 23:47 37.0 C 82 18 110/72 Pulse Ox O2 Del Method 11/02/22 07:28 95 Room Air 11/02/22 07:17 11/02/22 03:41 95 Room Air 11/01/22 22:00 11/01/22 23:47 96 Room Air Laboratory Results 11/02/22 11/02/22 Range/Units 06:03 06:03 WBC 6.02 (4.8-10.8) K/ul RBC 3.58 L (4.20-5.40) M/uL Hgb 10.4 L (12.0-16.0) g/dl Hct 31.1 L (37.0-47.0) % MCV 86.9 (80.0-100.0) fL MCH 29.1 (25.0-34.0) pg MCHC 33.4 (32.0-36.0) g/dL RDW Std Deviation 39.2 (36.4-46.3) fL RDW Coeff of Rad 12.2 (11.5-14.5) % Plt Count 125 L (130-400) K/uL MPV 10.2 (9.4-12.4) fL Immature Gran % (Auto) 0.3 % Neut % (Auto) 56.3 % Lymph % (Auto) 29.9 % [place] % (Auto) 10.5 % Eos % (Auto) 2.7 % Baso % (Auto) 0.3 % Neut # (Auto) 3.39 (1.40-6.50) K/uL Lymph # (Auto) 1.80 (1.2-3.4) K/uL [place] # (Auto) 0.63 H (0.11-0.59) K/uL Eos # (Auto) 0.16 (0-0.50) K/uL Baso # (Auto) 0.02 (0-0.2) K/uL Immature Gran # (Auto) 0.02 (0.01-0.20) K/uL Sodium 140 (136-145) mmol/L Potassium 3.6 (3.5-5.1) mmol/L Chloride 109 H (98-107) mmol/L Carbon Dioxide 26 (21-32) mmol/L Anion Gap 5 (3-11) BUN 11 (6-23) mg/dl Creatinine 0.72 (0.6-1.2) mg/dl Est Cr Clr Drug Dosing 86.3 ml/min Est GFR ( Amer) 105.5 ml/min Est GFR (Non-Af Amer) 91.0 ml/min BUN/Creatinine Ratio 15.3 (10-20) Glucose 108 H (70-99(Fasting)) mg/dl Calcium 8.6 (8.5-10.1) mg/dl Total Bilirubin 0.8 (0.2-1.0) mg/dl AST 43 H (13-39) U/L ALT 62 H (7-52) U/L Alkaline Phosphatase 141 H (34-104) U/L Total Protein 6.2 (6.0-8.3) gm/dl Albumin 3.4 (3.4-5.0) gm/dl Globulin 2.8 (2.5-4.0) gm/dl Albumin/Globulin Ratio 1.2 (0.9-2) Still no growth on intra-op cultures and blood cultures. Crystals still Pending
[2022-11-02] MEDS: DOCUSATE SODIUM/SENNA 50/8.6MG TAB PO SCH (08:31)
[2022-11-02] MEDS: PANTOprazole 40 MG TAB PO SCH (08:32)
[2022-11-02] MEDS: ATORVASTATIN 20 MG TAB PO SCH (08:33)
[2022-11-02] MEDS: POLYETHYLENE (MIRALAX) 17 GM PACK PO PRN (13:24)
[2022-11-02] MEDS ORDERED: VANCOMYCIN LEVEL ONE (13:30)
--- NOTE | 2022-11-02 13:34 | Hospitalist Progress Note ---
Date of Service November 02, 2022 Assessment & Plan (1) Septic arthritis: (2) Acute pain of left hip: Plan: Patient presented to the ED with acute onset of left hip pain for 1 day Febrile in ED with 38.5 CT femur showed left hip joint effusion. Patient underwent left hip incision and drainage by orthopedic on 10/30. Fluid analysis; WBC count of 92,000 with 95% polynuclear cells. Gram stainno organism. Culture no growth till date Blood cultureno growth till date Plan; Continue on vancomycin and Zosyn for now. So far, wound culture and blood cultures are negative. Final duration and route of antibiotic depending on blood culture/wound culture results. Infectious disease consulted; to see the patient today PT OTrecommend rehab. Patient lives with her who had just recently undergone bilateral knee replacement. She may need placement. DVT prophylaxis with heparin Pain control (3) Rheumatoid arthritis: Plan: On Humira. Currently on hold. (4) Vitamin D deficiency: Plan: 25 hydroxy vitamin D level 9. Start 50,000 units every week for 6-week and maintenance dose after that (5) High blood pressure: Plan: Antihypertensive on hold presently. (6) Hyperlipidemia: Plan: On statin Plan Full code DVT prophylaxis heparin Dispositionfrom home; PT OT recommends rehab. Continue to hospitalized due to need for IV antibiotic for septic arthritis. Infectious disease consultation pending to determine route and duration of antibiotics. Admission and Anticipated Discharge Date Admission Date: October 30, 2022 Subjective Patient seen and examined at bedside. She is comfortable sitting at the side of the bed; not in any distress. Denies any fever and chills overnight. Hemodynamically stable. Review of Systems Review of Systems: All systems reviewed & are unremarkable except as noted in Subjective Physical Exam Physical Exam: Constitutional: WD/WN, vitals as above, NAD, sitting up in bed, pleasant, conversing easily Respiratory: normal respiratory effort, lungs clear to auscultation, no wheeze, rales, rhonchi. Normal insp/exp effort, no accessory muscle use Cardiovascular: RRR, no murmur, no edema Vessels: no JVD or carotid bruit Chest: normal inspection of chest Abdomen: normal bowel sounds, soft, nontender, no hepatosplenomegaly Musculoskeletal: Dressing clean, dry and intact. Tenderness on palpation Skin: no rashes, warm and dry normal turgor Neurologic: PERRL, EOMI, accommodation nl, no face palsy, no dysarthria CN's II- XI intact bilaterally and moves all extremities Psychiatric: A+Ox3, euthymic affect Lymphatic: no cervical or axillary lymphadenopathy : deferred Results & Data Results & Data Vital Signs (Past 12 Hours) Vital Signs Temp Pulse Pulse Pulse Resp BP BP 11/02/22 11:09 36.6 C 76 20 123/75 11/02/22 09:00 11/02/22 07:28 36.6 C 80 18 132/71 11/02/22 07:17 72 11/02/22 03:41 36.5 C 69 18 130/77 Pulse Ox Pulse Ox O2 Del Method O2 Del Method 11/02/22 11:09 97 Room Air 11/02/22 09:00 97 Room Air 11/02/22 07:28 95 Room Air 11/02/22 07:17 11/02/22 03:41 95 Room Air Laboratory Results Laboratory Results WBC 6.02 K/ul (4.8-10.8) 11/02/22 06:03 RBC 3.58 M/uL (4.20-5.40) L 11/02/22 06:03 Hgb 10.4 g/dl (12.0-16.0) L 11/02/22 06:03 Hct 31.1 % (37.0-47.0) L 11/02/22 06:03 MCV 86.9 fL (80.0-100.0) 11/02/22 06:03 MCH 29.1 pg (25.0-34.0) 11/02/22 06:03 MCHC 33.4 g/dL (32.0-36.0) 11/02/22 06:03 RDW Std Deviation 39.2 fL (36.4-46.3) 11/02/22 06:03 RDW Coeff of Rad 12.2 % (11.5-14.5) 11/02/22 06:03 Plt Count 125 K/uL (130-400) L 11/02/22 06:03 MPV 10.2 fL (9.4-12.4) 11/02/22 06:03 Immature Gran % (Auto) 0.3 % 11/02/22 06:03 Neut % (Auto) 56.3 % 11/02/22 06:03 Lymph % (Auto) 29.9 % 11/02/22 06:03 [place] % (Auto) 10.5 % 11/02/22 06:03 Eos % (Auto) 2.7 % 11/02/22 06:03 Baso % (Auto) 0.3 % 11/02/22 06:03 Neut # (Auto) 3.39 K/uL (1.40-6.50) 11/02/22 06:03 Lymph # (Auto) 1.80 K/uL (1.2-3.4) 11/02/22 06:03 Hawkins # (Auto) 0.63 K/uL (0.11-0.59) H 11/02/22 06:03 Eos # (Auto) 0.16 K/uL (0-0.50) 11/02/22 06:03 Baso # (Auto) 0.02 K/uL (0-0.2) 11/02/22 06:03 Immature Gran # (Auto) 0.02 K/uL (0.01-0.20) 11/02/22 06:03 RBC Morphology Unremarkable 10/31/22 06:20 ESR 30 mm/hr (0-30) 10/29/22 21:50 Sodium 140 mmol/L (136-145) 11/02/22 06:03 Potassium 3.6 mmol/L (3.5-5.1) 11/02/22 06:03 Chloride 109 mmol/L (98-107) H 11/02/22 06:03 Carbon Dioxide 26 mmol/L (21-32) 11/02/22 06:03 Anion Gap 5 (3-11) 11/02/22 06:03 BUN 11 mg/dl (6-23) 11/02/22 06:03 Creatinine 0.72 mg/dl (0.6-1.2) 11/02/22 06:03 Est Cr Clr Drug Dosing 86.3 ml/min 11/02/22 06:03 Est GFR ( Amer) 105.5 ml/min 11/02/22 06:03 Est GFR (Non-Af Amer) 91.0 ml/min 11/02/22 06:03 BUN/Creatinine Ratio 15.3 (10-20) 11/02/22 06:03 Glucose 108 mg/dl (70-99(Fasting)) H 11/02/22 06:03 Estimat Average Glucose 117 mg/dl 10/30/22 09:54 Hemoglobin A1c 5.7 % (4.5-5.6) H 10/30/22 09:54 Lactate 1.0 mmol/L (0.4-2.0) 10/29/22 23:21 Calcium 8.6 mg/dl (8.5-10.1) 11/02/22 06:03 Magnesium 1.7 mg/dl (1.7-2.4) 10/30/22 09:54 Total Bilirubin 0.8 mg/dl (0.2-1.0) 11/02/22 06:03 AST 43 U/L (13-39) H 11/02/22 06:03 ALT 62 U/L (7-52) H 11/02/22 06:03 Alkaline Phosphatase 141 U/L (34-104) H 11/02/22 06:03 C-Reactive Protein 0.88 mg/dl (0-0.5) H 10/29/22 21:50 Total Protein 6.2 gm/dl (6.0-8.3) 11/02/22 06:03 Albumin 3.4 gm/dl (3.4-5.0) 11/02/22 06:03 Globulin 2.8 gm/dl (2.5-4.0) 11/02/22 06:03 Albumin/Globulin Ratio 1.2 (0.9-2) 11/02/22 06:03 25-OH Vitamin D Total 9.0 ng/ml (30-100) L 10/31/22 06:20 Procalcitonin 0.05 ng/ml (0-0.5) 10/29/22 21:50 Urine Color Yellow 10/31/22 08:45 Urine Appearance Clear (Clear) 10/31/22 08:45 Urine pH 5.5 (4.5-7.5) 10/31/22 08:45 Ur Specific [place] 1.014 (1.000-1.030) 10/31/22 08:45 Urine Protein Negative (Negative) 10/31/22 08:45 Urine Glucose (UA) Negative (Negative) 10/31/22 08:45 Urine Ketones Trace (Negative) H 10/31/22 08:45 Urine Blood Trace (Negative) H 10/31/22 08:45 Urine Nitrite Negative (Negative) 10/31/22 08:45 Urine Bilirubin Negative (Negative) 10/31/22 08:45 Urine Urobilinogen Negative (Negative) 10/31/22 08:45 Ur Leukocyte Esterase Negative (Negative) 10/31/22 08:45 Urine WBC (Auto) 1-5 /hpf (0-5) 10/31/22 08:45 Urine RBC (Auto) 0-4 /hpf (0-4) 10/31/22 08:45 U Hyaline Cast (Auto) 1-5 /lpf (0-5) 10/31/22 08:45 U Epithel Cells (Auto) 0-5 /lpf (0-5) 10/31/22 08:45 Urine Bacteria (Auto) Negative (Negative) 10/31/22 08:45 Fluid Crystals Cancelled 10/30/22 15:17 Fluid Comment 10/30/22 15:17 Fluid Comment Cancelled 10/30/22 15:17 Synovial Source Cancelled 10/30/22 15:17 Synovial Source Left Hip 10/30/22 15:17 Synovial Color Cancelled 10/30/22 15:17 Synovial Color Red 10/30/22 15:17 Synovial Appearance Cancelled 10/30/22 15:17 Synovial Appearance Turbid 10/30/22 15:17 Synovial WBC (Auto) 46192 /ul (0-200) H 10/30/22 15:17 Synovial WBC (Auto) Cancelled 10/30/22 15:17 Synovial WBC Cancelled 10/30/22 15:17 Synovial RBC (Auto) 023440 /uL 10/30/22 15:17 Synovial RBC (Auto) Cancelled 10/30/22 15:17 Synovial RBC Cancelled 10/30/22 15:17 Synov Polynuclear WBCs Cancelled 10/30/22 15:17 Synov Mononuclear WBCs Cancelled 10/30/22 15:17 Synovial Other Cells Cancelled 10/30/22 15:17 Synovial Polynuclear % 95.1 % 10/30/22 15:17 Synovial Polynuclear % Cancelled 10/30/22 15:17 Synovial Mononuclear % 4.9 % 10/30/22 15:17 Synovial Mononuclear % Cancelled 10/30/22 15:17 Synovial Crystals 10/30/22 15:17 Random Vancomycin 7.4 mcg/ml (10-20) L 11/01/22 05:54 SARS-CoV-2 (PCR) NEGATIVE (Negative) 10/30/22 02:30 Influenza Type A (PCR) Negative (Neg) 10/30/22 02:30 Influenza Type B (PCR) Negative (Neg) 10/30/22 02:30 RSV (RT-PCR) Negative (Neg) 10/30/22 02:30 Impressions Hip/Pelvis X-Ray 10/29/22 22:51 XR hip LT 2V w pelvis HISTORY: 62 years-old Female left pelvic pain acute pain of the pelvis and left hip COMPARISON: CT left femur of same day TECHNIQUE: AP view of the pelvis with 2 views of the left hip FINDINGS: Moderate degeneration of the pubic symphysis. No acute fracture, dislocation, avascular necrosis or significant osteoarthritis. Unremarkable soft tissues. IMPRESSION: No acute fracture or dislocation. ACT 112: Negative or not required by law. The above report was generated using voice recognition software. It may contain grammatical, syntax or spelling errors. Electronically signed by: Emre Moser M.D. 10/30/2022 7:05 AM Abdomen/Pelvis CT 10/29/22 23:57 Exam(s): CT ABDOMEN + PELVIS With Contrast IV Amt: 85 ml optiray 350 EXAM: CT Abdomen and Pelvis With Intravenous Contrast CLINICAL HISTORY: Reason for exam: left groin pain. TECHNIQUE: Axial computed tomography images of the abdomen and pelvis with intravenous contrast. Automated exposure control was utilized for the study. A dose lowering technique was utilized adhering to the principles of ALARA. CONTRAST: Patient received 85 ml optiray 350 of IV contrast COMPARISON: No relevant prior studies available. FINDINGS: Lung bases: Unremarkable. No mass. No consolidation. ABDOMEN: Liver: Early hepatic cirrhosis. Splenomegaly. Cholecystectomy. Gallbladder and bile ducts: See above. Pancreas: Unremarkable. No mass. No ductal dilation. Spleen: See above. Adrenals: Unremarkable. No mass. Kidneys and ureters: Unremarkable. No hydronephrosis or delayed nephrogram. Stomach and bowel: Unremarkable. No obstruction. No mucosal thickening. PELVIS: Appendix: Appendectomy. Bladder: Unremarkable. No mass. Reproductive: Hysterectomy. ABDOMEN and PELVIS: Intraperitoneal space: Unremarkable. No free air. No significant fluid collection. Bones/joints: Degenerative changes of the spine. No acute fracture. No dislocation. Soft tissues: Unremarkable. Vasculature: Unremarkable. No abdominal aortic aneurysm. Lymph nodes: Unremarkable. No enlarged lymph nodes. IMPRESSION: 1. Early hepatic cirrhosis. Splenomegaly. Cholecystectomy. 2. Appendectomy. Electronically signed by: Christopher Milan MD 10/30/22 01:[address] 10/29/22 23:57 Exam(s): CT EXTREMITY LEFT LOWER With Contrast IV Amt: 85 ml optiray 350 EXAM: CT Left Lower Extremity With Intravenous Contrast CLINICAL HISTORY: Reason for exam: left thigh pain. TECHNIQUE: Axial computed tomography images of the left lower extremity with intravenous contrast. Automated exposure control was utilized for the study. A dose lowering technique was utilized adhering to the principles of ALARA. CONTRAST: Patient received 85 ml optiray 350 of IV contrast COMPARISON: No relevant prior studies available. FINDINGS: Bones/joints: Left hip joint effusion. Consider left hip MRI if clinically indicated. No acute fracture. No dislocation. Soft tissues: Unremarkable. No abnormal contrast enhancement. IMPRESSION: Left hip joint effusion. Consider left hip MRI if clinically indicated. Electronically signed by: Christopher Milan MD 10/30/22 01:54 AM (3) Rheumatoid arthritis Rheumatoid arthritis location: unspecified site Rheumatoid factor presence: unspecified presence Qualified Code(s): M06.9 - Rheumatoid arthritis, unspecified
[2022-11-02] MEDS: cefTRIAXone SODIUM 2,000 MG in DEXTROSE 5% 50 ML IV SCH (17:43)
[2022-11-02] MEDS: metroNIDAZOLE 500 MG TAB PO SCH (21:33)
[2022-11-03] MEDS: VANCOMYCIN HCL 1,000 MG in SODIUM CHLORIDE 0.9% 250 ML IV SCH ×2 (06:00→13:03)
[2022-11-03] MEDS: HEPARIN SOD 5,000 UNIT/0.5 ML VIAL SQ SCH ×3 (06:01→20:51)
[2022-11-03] MEDS: metroNIDAZOLE 500 MG TAB PO SCH ×3 (07:53→20:51)
[2022-11-03] MEDS: ATORVASTATIN 20 MG TAB PO SCH (07:53)
[2022-11-03] MEDS: PANTOprazole 40 MG TAB PO SCH (07:54)
[2022-11-03] MEDS: DOCUSATE SODIUM/SENNA 50/8.6MG TAB PO SCH (07:54)
[2022-11-03 08:01] LABS: Basophils # (auto) 0.02 K/uL (0-0.2); Basophils % (auto) 0.5 %; Eosinophils # (auto) 0.14 K/uL (0-0.50); Eosinophils % (auto) 3.3 %; Hematocrit (blood only) 28.3 % (37.0-47.0); Hemoglobin 9.8 g/dl (12.0-16.0); Immature Granulocytes # (auto) 0.02 K/uL (0.01-0.20); Immature Granulocytes % (auto) 0.5 %; Lymphocytes # (auto) 1.27 K/uL (1.2-3.4); Lymphocytes % (auto) 29.6 %; Mean Corpuscular Hemoglobin 29.3 pg (25.0-34.0); Mean Corpuscular Hgb Conc 34.6 g/dL (32.0-36.0); Mean Corpuscular Volume 84.7 fL (80.0-100.0); Mean Platelet Volume 9.9 fL (9.4-12.4); Monocytes # (auto) 0.47 K/uL (0.11-0.59); Neutrophils # (auto) 2.37 K/uL (1.40-6.50); Neutrophils % (auto) 55.1 %; Platelet Count 123 K/uL (130-400); RDW Coefficient of Variation 12.4 % (11.5-14.5); RDW Standard Deviation 38.3 fL (36.4-46.3); Red Blood Count 3.34 M/uL (4.20-5.40); White Blood Count 4.29 K/ul (4.8-10.8)
[2022-11-03 08:19] LABS: Albumin Globulin Ratio 1.2 (0.9-2); Albumin Level 3.3 gm/dl (3.4-5.0); BUN Creatinine Ratio 21.5 (10-20); Bilirubin,Total 0.7 mg/dl (0.2-1.0); Calcium 8.8 mg/dl (8.5-10.1); Creatinine Clr Calc Pharmacy 95.6 ml/min; Est GFR (African American) 111.8 ml/min; Est GFR (Non-African American) 96.5 ml/min; Globulin 2.8 gm/dl (2.5-4.0); Potassium 3.8 mmol/L (3.5-5.1); Total Protein 6.1 gm/dl (6.0-8.3)
--- NOTE | 2022-11-03 09:40 | Orthopedic Progress Note ---
Date of Service November 03, 2022 Assessment & Plan (1) Effusion of hip joint, left: Plan: POD #4 s/p I&D L hip, septic arthritis versus inflammatory process, doing well. WBAT with walker. Continue IV Antibiotics. ID consult completed, recommending 4 weeks of IV antibiotics from 10/30/22 and following up with ID in 2 weeks Recommend weekly CRP CMP and CBC Dressing is clean, negative for drainage, will need changed prior to d/c OOB to chair. Continue pain control. Continue to follow labs. DVT prophylaxis: TEDs 3 weeks, SCDs while in hospital, medicinal per primary service. Continue with PT/OT recommend home PT for continued strengthening and gait training From ortho standpoint okay to d/c once primary feels appropriate and home health set-up. Continue care per primary service. Present on Admission?: Yes Admission and Anticipated Discharge Date Admission Date: October 30, 2022 Supervising Physician Co-Signing Physician Notes I, Dr. Laughlin, saw and examined the patient and discussed the management with my PA. I reviewed my PAs note and agree with the documented findings and the plan of care I developed. Subjective Patient is a 62-year-old female who is status post an I&D of the left hip with suspected septic arthritis. She is postop day #4. She was seen bedside this morning. As I was coming in the room she was walking from the bathroom. She states she has minimal pain and reports it is more of an ache and rated at 2/10. She states overall she is feeling better. She states she has some weakness in the leg and is not limited with trying to get it up into bed and often has to assist the leg up she states she is still having a little bit of numbness over the thigh. She denies any fever, chills or night sweats. She denies any chest pain shortness of breath or calf pain. 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 She is inquiring how long she will be off work. She is hoping that she is able to go home today. Review of Systems Review of Systems: Please refer to HPI Physical Exam Physical Exam: General: Patient is alert and oriented x3 no acute distress pleasant and conversive Musculoskeletal integumentary: Dressing is intact. Negative for any drainage. Skin surrounding dressing is normal in color and temperature. Mild tenderness over proximal thigh as anticipated. Negative for any induration or fluctuance. Patient is able to do a quad set needs assistance for straight leg raise off of the bed. She is able to flex the knee with mild discomfort in the posterior thigh. Calf is soft and nontender. Dorsal pedis pulses 2+. Left lower extremity is neurovascular intact. Results & Data Vital Signs (Past 12 Hours) Vital Signs Temp Pulse Pulse Resp BP Pulse Ox O2 Del Method 11/03/22 07:35 36.8 C 67 18 124/74 95 Room Air 11/03/22 07:12 67 11/03/22 03:43 36.4 C L 62 16 124/71 96 Room Air 11/02/22 21:56 77 11/02/22 22:43 36.8 C 80 16 112/68 94 Room Air Laboratory Results Microbiology 10/30/22 15:17 Gram Stain - Final Hip,Left Aerobic and Anaerobic Culture - Preliminary No growth to date. 10/30/22 15:05 Gram Stain - Final Hip,Left Aerobic and Anaerobic Culture - Preliminary No growth to date.
[2022-11-03] MEDS: POLYETHYLENE (MIRALAX) 17 GM PACK PO PRN (10:20)
[2022-11-03] MEDS ORDERED: DOCUSATE SODIUM 100 MG CAP PO ONE (10:28)
[2022-11-03] MEDS ORDERED: MAGNESIUM HYDROXIDE SUSP 30 ML UDC PO ONE (10:28)
--- NOTE | 2022-11-03 13:11 | Pharmacy Report ---
Pharmacy PK ABX Note - Date of Service November 03, 2022 - Assessment and Plan Assessment 11/03: Blood cultures remain NGTD. I&D of left hip performed on 10/30. ID recommending continued IV antibiotic for 4 weeks. Trough obtained 11/02 @ 1356 was 10.5 mg/dL; Current 1G q8h regimen remains within projected therapeutic AUC goal range of 400-600. 11/01: Blood cultures/hip cultures currently negative to date. ID consulted. Continuing vancomycin/zosyn for now. Random level this AM suggest subtherapeutic dosing, will increase dose. 62 year old F receiving Vancomycin and Zosyn for treatment of possible septic arthritis of hip. * 24 hr Tmax of 38.5oC. White count down to 10k. Significant improvement in renal fxn today. Lactate and procal negative. * Blood cultures pending. * To OR today for I&D of hip. Await OR cultures. Plan * Vancomycin 1000 mg IV every 8 hours; additional level to be ordered if deemed clinically appropriate. * Continue Zosyn 3.375g IV very 8 hours. Pharmacy will continue to follow and will adjust dose/frequency as necessary. Thank you. Pharmacy has transitioned to AUC monitoring for vancomycin. AUC/EMMETT is the preferred PK/PD target and is associated with decreased risk of nephrotoxicity compared to traditional trough targets.
--- NOTE | 2022-11-03 14:33 | Hospitalist Progress Note ---
Date of Service November 03, 2022 Assessment & Plan (1) Septic arthritis: (2) Acute pain of left hip: Plan: Patient presented to the ED with acute onset of left hip pain for 1 day Febrile in ED with 38.5 CT femur showed left hip joint effusion. Patient underwent left hip incision and drainage by orthopedic on 10/30. Fluid analysis; WBC count of 92,000 with 95% polynuclear cells. Gram stainno organism. Culture no growth till date Blood cultureno growth till date Plan; Appreciate infectious disease recommendation. Patient is switched over to ceftriaxone 2 g IV once daily and Flagyl 500 mg p.o. every 8 hours. Prescription given to case management; home health to be set up starting . So far, her OR cultures have been negative. We will discontinue vancomycin tomorrow if oral culture continues to be negative. Weekly CRP, CMP and CBC to be done while on antibiotic therapy every ; results to be faxed to her primary care doctor. Patient to follow-up in the outpatient ID clinic in 2 weeks to discuss possible transition from IV antibiotic to oral antibiotic. (3) Rheumatoid arthritis: Plan: On Humira. Currently on hold. (4) Vitamin D deficiency: Plan: 25 hydroxy vitamin D level 9. We will provide 50,000 units every week for 6 weeks at discharge and maintenance dose after that (5) High blood pressure: Plan: Patient's blood pressure has been within normal range during the hospitalization. Will resume losartan at discharge. Hold amlodipine for now till she sees her primary care doctor. (6) Hyperlipidemia: Plan: On statin (7) Acute blood loss anemia: Plan: Hemoglobin down trended from 12 to 9-10; Monitor for now. Plan Full code DVT prophylaxis heparin Dispositiondischarge home with home health for IV antibiotics; most likely to tomorrow. Ultrasound guided peripheral IV line placed. Admission and Anticipated Discharge Date Admission Date: October 30, 2022 Subjective Patient seen and examined at bedside. She reports she has been getting around the room comfortably without any distress. Pain minimal. Review of Systems Review of Systems: All systems reviewed & are unremarkable except as noted in Subjective Physical Exam Physical Exam: Constitutional: WD/WN, vitals as above, NAD, sitting up in bed, pleasant, conversing easily Respiratory: normal respiratory effort, lungs clear to auscultation, no wheeze, rales, rhonchi. Normal insp/exp effort, no accessory muscle use Cardiovascular: RRR, no murmur, no edema Vessels: no JVD or carotid bruit Chest: normal inspection of chest Abdomen: normal bowel sounds, soft, nontender, no hepatosplenomegaly Musculoskeletal: Dressing clean, dry and intact. Tenderness on palpation around incision site. Skin: no rashes, warm and dry normal turgor Neurologic: PERRL, EOMI, accommodation nl, no face palsy, no dysarthria CN's II- XI intact bilaterally and moves all extremities Psychiatric: A+Ox3, euthymic affect Lymphatic: no cervical or axillary lymphadenopathy : deferred Results & Data Results & Data Vital Signs (Past 12 Hours) Vital Signs Temp Pulse Pulse Resp BP Pulse Ox O2 Del Method 11/03/22 11:00 36.9 C 75 18 124/80 96 Room Air 11/03/22 07:35 36.8 C 67 18 124/74 95 Room Air 11/03/22 07:12 67 11/03/22 03:43 36.4 C L 62 16 124/71 96 Room Air Laboratory Results Laboratory Results WBC 4.29 K/ul (4.8-10.8) L 11/03/22 07:31 RBC 3.34 M/uL (4.20-5.40) L 11/03/22 07:31 Hgb 9.8 g/dl (12.0-16.0) L 11/03/22 07:31 Hct 28.3 % (37.0-47.0) L 11/03/22 07:31 MCV 84.7 fL (80.0-100.0) 11/03/22 07:31 MCH 29.3 pg (25.0-34.0) 11/03/22 07:31 MCHC 34.6 g/dL (32.0-36.0) 11/03/22 07:31 RDW Std Deviation 38.3 fL (36.4-46.3) 11/03/22 07:31 RDW Coeff of Rad 12.4 % (11.5-14.5) 11/03/22 07:31 Plt Count 123 K/uL (130-400) L 11/03/22 07:31 MPV 9.9 fL (9.4-12.4) 11/03/22 07:31 Immature Gran % (Auto) 0.5 % 11/03/22 07:31 Neut % (Auto) 55.1 % 11/03/22 07:31 Lymph % (Auto) 29.6 % 11/03/22 07:31 [place] % (Auto) 11.0 % 11/03/22 07:31 Eos % (Auto) 3.3 % 11/03/22 07:31 Baso % (Auto) 0.5 % 11/03/22 07:31 Neut # (Auto) 2.37 K/uL (1.40-6.50) 11/03/22 07:31 Lymph # (Auto) 1.27 K/uL (1.2-3.4) 11/03/22 07:31 [place] # (Auto) 0.47 K/uL (0.11-0.59) 11/03/22 07:31 Eos # (Auto) 0.14 K/uL (0-0.50) 11/03/22 07:31 Baso # (Auto) 0.02 K/uL (0-0.2) 11/03/22 07:31 Immature Gran # (Auto) 0.02 K/uL (0.01-0.20) 11/03/22 07:31 RBC Morphology Unremarkable 10/31/22 06:20 ESR 30 mm/hr (0-30) 10/29/22 21:50 Sodium 141 mmol/L (136-145) 11/03/22 07:31 Potassium 3.8 mmol/L (3.5-5.1) 11/03/22 07:31 Chloride 111 mmol/L (98-107) H 11/03/22 07:31 Carbon Dioxide 25 mmol/L (21-32) 11/03/22 07:31 Anion Gap 5 (3-11) 11/03/22 07:31 BUN 14 mg/dl (6-23) 11/03/22 07:31 Creatinine 0.65 mg/dl (0.6-1.2) 11/03/22 07:31 Est Cr Clr Drug Dosing 95.6 ml/min 11/03/22 07:31 Est GFR ( Amer) 111.8 ml/min 11/03/22 07:31 Est GFR (Non-Af Amer) 96.5 ml/min 11/03/22 07:31 BUN/Creatinine Ratio 21.5 (10-20) H 11/03/22 07:31 Glucose 101 mg/dl (70-99(Fasting)) H 11/03/22 07:31 Estimat Average Glucose 117 mg/dl 10/30/22 09:54 Hemoglobin A1c 5.7 % (4.5-5.6) H 10/30/22 09:54 Lactate 1.0 mmol/L (0.4-2.0) 10/29/22 23:21 Calcium 8.8 mg/dl (8.5-10.1) 11/03/22 07:31 Magnesium 1.7 mg/dl (1.7-2.4) 10/30/22 09:54 Total Bilirubin 0.7 mg/dl (0.2-1.0) 11/03/22 07:31 AST 57 U/L (13-39) H 11/03/22 07:31 ALT 62 U/L (7-52) H 11/03/22 07:31 Alkaline Phosphatase 167 U/L (34-104) H 11/03/22 07:31 C-Reactive Protein 0.88 mg/dl (0-0.5) H 10/29/22 21:50 Total Protein 6.1 gm/dl (6.0-8.3) 11/03/22 07:31 Albumin 3.3 gm/dl (3.4-5.0) L 11/03/22 07:31 Globulin 2.8 gm/dl (2.5-4.0) 11/03/22 07:31 Albumin/Globulin Ratio 1.2 (0.9-2) 11/03/22 07:31 25-OH Vitamin D Total 9.0 ng/ml (30-100) L 10/31/22 06:20 Procalcitonin 0.05 ng/ml (0-0.5) 10/29/22 21:50 Urine Color Yellow 10/31/22 08:45 Urine Appearance Clear (Clear) 10/31/22 08:45 Urine pH 5.5 (4.5-7.5) 10/31/22 08:45 Ur Specific [place] 1.014 (1.000-1.030) 10/31/22 08:45 Urine Protein Negative (Negative) 10/31/22 08:45 Urine Glucose (UA) Negative (Negative) 10/31/22 08:45 Urine Ketones Trace (Negative) H 10/31/22 08:45 Urine Blood Trace (Negative) H 10/31/22 08:45 Urine Nitrite Negative (Negative) 10/31/22 08:45 Urine Bilirubin Negative (Negative) 10/31/22 08:45 Urine Urobilinogen Negative (Negative) 10/31/22 08:45 Ur Leukocyte Esterase Negative (Negative) 10/31/22 08:45 Urine WBC (Auto) 1-5 /hpf (0-5) 10/31/22 08:45 Urine RBC (Auto) 0-4 /hpf (0-4) 10/31/22 08:45 U Hyaline Cast (Auto) 1-5 /lpf (0-5) 10/31/22 08:45 U Epithel Cells (Auto) 0-5 /lpf (0-5) 10/31/22 08:45 Urine Bacteria (Auto) Negative (Negative) 10/31/22 08:45 Fluid Crystals Cancelled 10/30/22 15:17 Fluid Comment 10/30/22 15:17 Fluid Comment Cancelled 10/30/22 15:17 Synovial Source Cancelled 10/30/22 15:17 Synovial Source Left Hip 10/30/22 15:17 Synovial Color Cancelled 10/30/22 15:17 Synovial Color Red 10/30/22 15:17 Synovial Appearance Cancelled 10/30/22 15:17 Synovial Appearance Turbid 10/30/22 15:17 Synovial WBC (Auto) 17531 /ul (0-200) H 10/30/22 15:17 Synovial WBC (Auto) Cancelled 10/30/22 15:17 Synovial WBC Cancelled 10/30/22 15:17 Synovial RBC (Auto) 495855 /uL 10/30/22 15:17 Synovial RBC (Auto) Cancelled 10/30/22 15:17 Synovial RBC Cancelled 10/30/22 15:17 Synov Polynuclear WBCs Cancelled 10/30/22 15:17 Synov Mononuclear WBCs Cancelled 10/30/22 15:17 Synovial Other Cells Cancelled 10/30/22 15:17 Synovial Polynuclear % 95.1 % 10/30/22 15:17 Synovial Polynuclear % Cancelled 10/30/22 15:17 Synovial Mononuclear % 4.9 % 10/30/22 15:17 Synovial Mononuclear % Cancelled 10/30/22 15:17 Synovial Crystals 10/30/22 15:17 Vancomycin Trough 10.5 mcg/ml (10-20) 11/02/22 13:56 Random Vancomycin 7.4 mcg/ml (10-20) L 11/01/22 05:54 SARS-CoV-2 (PCR) NEGATIVE (Negative) 10/30/22 02:30 Influenza Type A (PCR) Negative (Neg) 10/30/22 02:30 Influenza Type B (PCR) Negative (Neg) 10/30/22 02:30 RSV (RT-PCR) Negative (Neg) 10/30/22 02:30 Impressions Hip/Pelvis X-Ray 10/29/22 22:51 XR hip LT 2V w pelvis HISTORY: 62 years-old Female left pelvic pain acute pain of the pelvis and left hip COMPARISON: CT left femur of same day TECHNIQUE: AP view of the pelvis with 2 views of the left hip FINDINGS: Moderate degeneration of the pubic symphysis. No acute fracture, dislocation, avascular necrosis or significant osteoarthritis. Unremarkable soft tissues. IMPRESSION: No acute fracture or dislocation. ACT 112: Negative or not required by law. The above report was generated using voice recognition software. It may contain grammatical, syntax or spelling errors. Electronically signed by: Emre Moser M.D. 10/30/2022 7:05 AM Abdomen/Pelvis CT 10/29/22 23:57 Exam(s): CT ABDOMEN + PELVIS With Contrast IV Amt: 85 ml optiray 350 EXAM: CT Abdomen and Pelvis With Intravenous Contrast CLINICAL HISTORY: Reason for exam: left groin pain. TECHNIQUE: Axial computed tomography images of the abdomen and pelvis with intravenous contrast. Automated exposure control was utilized for the study. A dose lowering technique was utilized adhering to the principles of ALARA. CONTRAST: Patient received 85 ml optiray 350 of IV contrast COMPARISON: No relevant prior studies available. FINDINGS: Lung bases: Unremarkable. No mass. No consolidation. ABDOMEN: Liver: Early hepatic cirrhosis. Splenomegaly. Cholecystectomy. Gallbladder and bile ducts: See above. Pancreas: Unremarkable. No mass. No ductal dilation. Spleen: See above. Adrenals: Unremarkable. No mass. Kidneys and ureters: Unremarkable. No hydronephrosis or delayed nephrogram. Stomach and bowel: Unremarkable. No obstruction. No mucosal thickening. PELVIS: Appendix: Appendectomy. Bladder: Unremarkable. No mass. Reproductive: Hysterectomy. ABDOMEN and PELVIS: Intraperitoneal space: Unremarkable. No free air. No significant fluid collection. Bones/joints: Degenerative changes of the spine. No acute fracture. No dislocation. Soft tissues: Unremarkable. Vasculature: Unremarkable. No abdominal aortic aneurysm. Lymph nodes: Unremarkable. No enlarged lymph nodes. IMPRESSION: 1. Early hepatic cirrhosis. Splenomegaly. Cholecystectomy. 2. Appendectomy. Electronically signed by: Chrisotpher Milan MD 10/30/22 01:[address] 10/29/22 23:57 Exam(s): CT EXTREMITY LEFT LOWER With Contrast IV Amt: 85 ml optiray 350 EXAM: CT Left Lower Extremity With Intravenous Contrast CLINICAL HISTORY: Reason for exam: left thigh pain. TECHNIQUE: Axial computed tomography images of the left lower extremity with intravenous contrast. Automated exposure control was utilized for the study. A dose lowering technique was utilized adhering to the principles of ALARA. CONTRAST: Patient received 85 ml optiray 350 of IV contrast COMPARISON: No relevant prior studies available. FINDINGS: Bones/joints: Left hip joint effusion. Consider left hip MRI if clinically indicated. No acute fracture. No dislocation. Soft tissues: Unremarkable. No abnormal contrast enhancement. IMPRESSION: Left hip joint effusion. Consider left hip MRI if clinically indicated. Electronically signed by: Christopher Milan MD 10/30/22 01:54 AM (3) Rheumatoid arthritis Rheumatoid arthritis location: unspecified site Rheumatoid factor presence: unspecified presence Qualified Code(s): M06.9 - Rheumatoid arthritis, unspecified
[2022-11-03] MEDS: cefTRIAXone SODIUM 2,000 MG in DEXTROSE 5% 50 ML IV SCH (17:34)
[2022-11-04] MEDS: ACETAMINOPHEN 325 MG TAB PO PRN (00:28)
[2022-11-04] MEDS: oxyCODONE HCL IR 5 MG TAB (IMMEDIATE RELEASE) PO PRN (00:28)
[2022-11-04] MEDS: HEPARIN SOD 5,000 UNIT/0.5 ML VIAL SQ SCH (05:45)
[2022-11-04 07:45] VITALS: BP 133/79; PULSE 65; TEMP 97.9
[2022-11-04] MEDS: LOSARTAN POTASSIUM 50 MG TAB PO SCH (08:40)
[2022-11-04] MEDS: ATORVASTATIN 20 MG TAB PO SCH (08:40)
[2022-11-04] MEDS: DOCUSATE SODIUM/SENNA 50/8.6MG TAB PO SCH (08:40)
[2022-11-04] MEDS: metroNIDAZOLE 500 MG TAB PO SCH (08:40)
[2022-11-04] MEDS: PANTOprazole 40 MG TAB PO SCH (08:40)
--- NOTE | 2022-11-04 10:42 | Hospitalist Progress Note ---
Date of Service November 04, 2022 Assessment & Plan (1) Septic arthritis: (2) Acute pain of left hip: Plan: Patient presented to the ED with acute onset of left hip pain for 1 day Febrile in ED with 38.5 CT femur showed left hip joint effusion. Patient underwent left hip incision and drainage by orthopedic on 10/30. Fluid analysis; WBC count of 92,000 with 95% polynuclear cells. Gram stainno organism. Culture no growth till date Blood cultureno growth till date Plan; Appreciate infectious disease recommendation. Patient is switched over to ceftriaxone 2 g IV once daily and Flagyl 500 mg p.o. every 8 hours. Prescription given to case management; home health to be set up starting . So far, her OR cultures have been negative. We will discontinue vancomycin tomorrow if oral culture continues to be negative. Weekly CRP, CMP and CBC to be done while on antibiotic therapy every ; results to be faxed to her primary care doctor. Patient to follow-up in the outpatient ID clinic in 2 weeks to discuss possible transition from IV antibiotic to oral antibiotic. (3) Rheumatoid arthritis: Plan: On Humira. Currently on hold. (4) Vitamin D deficiency: Plan: 25 hydroxy vitamin D level 9. We will provide 50,000 units every week for 6 weeks at discharge and maintenance dose after that (5) High blood pressure: Plan: Patient's blood pressure has been within normal range during the hospitalization. Will resume losartan at discharge. Hold amlodipine for now till she sees her primary care doctor. (6) Hyperlipidemia: Plan: On statin (7) Acute blood loss anemia: Plan: Hemoglobin down trended from 12 to 9-10; Monitor for now. Plan Full code DVT prophylaxis heparin Dispositiondischarge home with home health for IV antibiotics; most likely to tomorrow. Ultrasound guided peripheral IV line placed. Admission and Anticipated Discharge Date Admission Date: October 30, 2022 Results & Data Results & Data Vital Signs (Past 12 Hours) Vital Signs Temp Pulse Pulse Resp BP Pulse Ox O2 Del Method 11/04/22 07:44 36.6 C 65 20 133/79 97 Room Air 11/04/22 07:29 66 11/04/22 03:00 36.8 C 65 18 119/70 96 Room Air (3) Rheumatoid arthritis Rheumatoid arthritis location: unspecified site Rheumatoid factor presence: unspecified presence Qualified Code(s): M06.9 - Rheumatoid arthritis, unspecified
[2022-11-04] MEDS ORDERED: Nursing to Pharmacy Communication SCH (11:15)
[2022-11-04 12:05] VITALS: O2SAT 97
[2022-11-04] MEDS: cefTRIAXone SODIUM 2,000 MG in DEXTROSE 5% 50 ML IV SCH (12:16)
== END 2022-11-04 13:27 | disposition home health service (06) | DRG 854 ==
LOC: ED 21:23 → 2N 10-30 04:19 → SUATTDRO 10-30 04:19 → 2N 10-30 08:54
PROC: M.IDHIP (2022-10-30 13:30)

== ENCOUNTER 2024-10-09 12:27 | Inpatient (IN) ==
[2024-10-09 13:16] LABS: Basophils # (auto) 0.01 K/uL (0.00-0.20); Basophils % (auto) 0.3 %; Eosinophils # (auto) 0.02 K/uL (0.00-0.50); Eosinophils % (auto) 0.5 %; Hemoglobin 12.9 g/dl (12.0-16.0); Immature Granulocytes # (auto) 0.03 K/uL (0.01-0.20); Immature Granulocytes % (auto) 0.8 %; Lymphocytes # (auto) 0.62 K/uL (1.20-3.40); Mean Corpuscular Hgb Conc 34.9 g/dL (32.0-36.0); Mean Corpuscular Volume 83.1 fL (80.0-100.0); Mean Platelet Volume 10.5 fL (9.4-12.4); Monocytes % (auto) 7.8 %; Neutrophils # (auto) 2.89 K/uL (1.40-6.50); Neutrophils % (auto) 74.6 %; Platelet Count 59 K/uL (130-400); RDW Coefficient of Variation 14.3 % (11.5-14.5); Red Blood Count 4.45 M/uL (4.20-5.40); White Blood Count 3.87 K/ul (4.8-10.8)
[2024-10-09 14:03] LABS: Adenovirus PCR Not Detected (NotDetected); Bordetella parapertussis PCR Not Detected (NotDetected); Bordetella pertussis PCR Not Detected (NotDetected); Chlamydia pneumoniae PCR Not Detected (NotDetected); Coronavirus 229E PCR Not Detected (NotDetected); Coronavirus CoV-2 (COVID19)PCR Not Detected (NotDetected); Coronavirus HKU1 PCR Not Detected (NotDetected); Coronavirus NL63 PCR Not Detected (NotDetected); Coronavirus OC43PCR Not Detected (NotDetected); Human Metapneumovirus PCR Not Detected (NotDetected); Influenza A PCR Not Detected (NotDetected); Influenza B PCR Not Detected (NotDetected); Mycoplasma pneumoniae PCR Not Detected (NotDetected); Parainfluenza Virus 1 PCR Not Detected (NotDetected); Parainfluenza Virus 2 PCR Not Detected (NotDetected); Parainfluenza Virus 3 PCR Not Detected (NotDetected); Parainfluenza Virus 4 PCR Not Detected (NotDetected); Respiratory Syncytial VirusPCR Not Detected (NotDetected); Rhinovirus/Enterovirus PCR Not Detected (NotDetected)
[2024-10-09 14:23] LABS: Albumin Globulin Ratio 1.3 (0.9-2); Albumin Level 3.9 gm/dl (3.4-5.0); BUN Creatinine Ratio 13.8 (10-20); Bilirubin,Total 2.2 mg/dl (0.2-1.0); Calcium 9.7 mg/dl (8.6-10.3); Creatinine Clr Calc Pharmacy 62.8 ml/min; Globulin 3.1 gm/dl (2.5-4.0); Potassium 4.1 mmol/L (3.5-5.1)
[2024-10-09] MEDS: SODIUM CHLORIDE 0.9% 1,000 ML IV ONE (14:59)
[2024-10-09] MEDS: NovoLIN-R INSULIN PER UNIT CHARGE IV STA (15:03)
--- NOTE | 2024-10-09 15:04 | Emergency Department Note ---
Impression & Plan Hyperglycemia, Elevated liver enzymes, Increased thirst, Dizziness ED Provider Note NAME: STACIE DUMAS AGE: 64 SEX: F : 1960 ARRIVES VIA: Walk-In INFORMANT: [Patient] ED PROVIDER(S): [Ramy Contreras MD] CHIEF COMPLAINT: Illness HISTORY OF PRESENT ILLNESS: The patient is a 64-year-old female with liver disease and a history of cholecystectomy who presents with about 1.5 months of symptoms. She has been excessively thirsty, she just cannot get enough to drink. She is not able to sleep. Her vision has changed and things are blurry when she tries to watch TV. Her urine has become dark in color and her urine outs have decreased. She has noticed shortness of breath with exertion. She has been dizzy to stand. There has been no fever. She did notice some urinary burning. No cough or congestion or respiratory complaints. She has some diffuse minimal abdominal pain which does seem at times worse with eating. She has not had chest pain. The patient states that she was never told that she was officially diabetic. She was told to watch her diet once by her doctors office. PMHx/PSHx/Social Hx: See Below PHYSICAL EXAM: GENERAL: Patient is in no acute distress. HEENT: No acute trauma, normocephalic atraumatic, mucous membranes moist, no nasal congestion. NECK: No stridor, no adenopathy, no meningismus, trachea is midline. LUNGS: Clear to auscultation bilaterally, no wheeze, no rhonchi, breath sounds equal. HEART: Without murmurs gallops or rubs, regular rate and rhythm. ABDOMEN: Soft, minimally diffusely tender, no distention. EXTREMITIES: No cyanosis, full range of motion of all the joints without pain or difficulty. NEUROLOGIC: Oriented x 3, no acute motor or sensory deficits, no focal weakness. SKIN: No jaundice, no diaphoresis. DIFFERENTIAL DIAGNOSIS: Dehydration, electrolyte imbalance, liver or renal disease, UTI, cardiac ischemia, pneumonia, among others. EMERGENCY DEPARTMENT PROCEDURES: MEDICAL DECISION MAKING: There is no leukocytosis or concerning anemia. Platelet count is low, this has been noted before. Sodium was somewhat low at 131. Glucose was quite high at nearly 500. No renal failure. There were liver enzyme elevations seen. The patient appeared to be in a euthyroid state. Urinalysis does not show findings of infection. Respiratory bio fire was negative. Chest film does not show pneumonia. On exam, patient was not toxic or febrile. The patient was given IV saline, IV insulin. The patient has acute hyperglycemia. This has caused her thirst. She has become dehydrated from the hyperglycemia. The dehydration caused the change in vision and her dizziness. I did speak with the patient about hospitalization, she did consent to staying for further care. I did speak with case management, the on-call hospitalist was consulted. Prior/Outside records/notes reviewed: None ECG per my interpretation: Indication was shortness of breath and weakness. The ECG shows a normal sinus rhythm with a rate of 86. There is an old anterior infarct. There is no acute ST elevation, no PVCs but the QTc is 471. Continuous Cardiac Monitoring per my interpretation: An order was placed for continuous cardiac monitoring. The monitor shows a rate of 85 with normal sinus rhythm. Imaging/x-ray results per my interpretation: Chest x-ray does not show pneumonia or fluid overload. Chronic Medical/Social conditions affecting care: None Care/Management discussed with: Case management, the on-call hospitalist. 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 Prediabetes diet controlled Osteoarthritis Kidney stones IBS (irritable bowel syndrome) Migraine hx of Insomnia Surgical History (Updated 10/09/24 @ 16:52 by Karina Estrada PA-C) History of appendectomy History of hysterectomy History of incision and drainage Left Hip Incision and Drainage H/O endoscopic retrograde cholangiopancreatography History of dilatation and curettage History of cystoscopy History of lithotripsy History of esophagogastroduodenoscopy (EGD) History of colonoscopy History of tooth extraction History of cholecystectomy Social History Smoking Status: Former smoker Second Hand Exposure: No; Do You Dip or Chew Tobacco: No; Hx Alcohol Use: No Hx Substance Use: No Preferred Language: Serbian Communication Ability: Effective Javascript Software Engineer Required: No Beliefs That Will Affect Care: None marital status: Current Living Situation: Spouse 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 at Home: Yes Assistive Devices: Glasses Allergies Allergies Allergy/AdvReac Type Severity Reaction Status Date / Time sulfamethoxazole Allergy Intermediate ITCHING Verified 10/09/24 15:07 trimethoprim Allergy Intermediate ITCHING Verified 10/09/24 15:07 naproxen AdvReac Intermediate NAUSEA AND Verified 10/09/24 15:07 VOMITNNG Home Meds Home Medications Medication Instructions Recorded Confirmed losartan 100 mg tablet 100 mg PO QAM 01/24/20 10/09/24 atorvastatin 20 mg tablet 20 mg PO QAM 11/05/20 10/09/24 amlodipine 5 mg tablet 5 mg PO DAILY 10/09/24 10/09/24 pantoprazole 40 mg tablet,delayed 40 mg PO DAILY 10/09/24 10/09/24 release Results & Data (ED) Vital Signs Vital Signs - 24 hr 10/09/24 12:34 10/09/24 14:46 10/09/24 14:56 Temperature 36.4 C L Temperature Source Temporal Artery Scan Pulse Rate 93 H 89 Pulse Rate [Apical] 85 Pulse Rhythm Regular Pulse Strength Normal Respiratory Rate 20 17 Respiratory Effort / Characteristics Non-Labored Spontaneous Non-Labored Spontaneous Respiratory Depth Normal Normal Blood Pressure 167/81 H Blood Pressure [Right Arm] 170/93 H Blood Pressure Mean 109 Blood Pressure Mean [Right Arm] 118 Pulse Oximetry 98 99 Oxygen Delivery Method Room Air Room Air Sepsis Recent Fever Within 48 Hours No Sepsis New/Unexplained Change in Mental Status N/A Sepsis Action Taken by Nursing No Action Required Home Medications Current Medication List: was personally reviewed by me Laboratory Data Attestation: I reviewed the patient's lab results. 10/09/24 12:59 10/09/24 12:59 Lab Results 10/09/24 10/09/24 Range/Units 12:59 14:40 WBC 3.87 L (4.8-10.8) K/ul RBC 4.45 (4.20-5.40) M/uL Hgb 12.9 (12.0-16.0) g/dl Hct 37.0 (37.0-47.0) % MCV 83.1 (80.0-100.0) fL MCH 29.0 (25.0-34.0) pg MCHC 34.9 (32.0-36.0) g/dL RDW Std Deviation 43.0 (36.4-46.3) fL RDW Coeff of Rad 14.3 (11.5-14.5) % Plt Count 59 L (130-400) K/uL MPV 10.5 (9.4-12.4) fL Immature Gran % (Auto) 0.8 % Neut % (Auto) 74.6 % Lymph % (Auto) 16.0 % [place] % (Auto) 7.8 % Eos % (Auto) 0.5 % Baso % (Auto) 0.3 % Neut # (Auto) 2.89 (1.40-6.50) K/uL Lymph # (Auto) 0.62 L (1.20-3.40) K/uL [place] # (Auto) 0.30 (0.11-0.59) K/uL Eos # (Auto) 0.02 (0.00-0.50) K/uL Baso # (Auto) 0.01 (0.00-0.20) K/uL Immature Gran # (Auto) 0.03 (0.01-0.20) K/uL Sodium 131 L (136-145) mmol/L Potassium 4.1 (3.5-5.1) mmol/L Chloride 100 (98-107) mmol/L Carbon Dioxide 23 (21-32) mmol/L Anion Gap 8 (3-11) BUN 12 (6-23) mg/dl Creatinine 0.87 (0.6-1.2) mg/dl Est Cr Clr Drug Dosing 62.8 ml/min eGFR 75.28 BUN/Creatinine Ratio 13.8 (10-20) Glucose 498 H* (70-99(Fasting)) mg/dl Calcium 9.7 (8.6-10.3) mg/dl Phosphorus 3.3 (2.5-4.9) mg/dl Magnesium 1.8 (1.7-2.4) mg/dl Total Bilirubin 2.2 H (0.2-1.0) mg/dl AST 107 H (13-39) U/L ALT 86 H (7-52) U/L Alkaline Phosphatase 314 H (34-104) U/L Total Protein 7.0 (6.0-8.3) gm/dl Albumin 3.9 (3.4-5.0) gm/dl Globulin 3.1 (2.5-4.0) gm/dl Albumin/Globulin Ratio 1.3 (0.9-2) TSH 1.938 (0.300-4.500) uIu/ml Urine Color Yellow Urine Appearance Clear (Clear) Urine pH 6.0 (4.5-7.5) Ur Specific [place] 1.042 H (1.000-1.030) Urine Protein Negative (Negative) Urine Glucose (UA) 3+ H (Negative) Urine Ketones Trace H (Negative) Urine Blood Negative (Negative) Urine Nitrite Negative (Negative) Urine Bilirubin Negative (Negative) Urine Urobilinogen Negative (Negative) Ur Leukocyte Esterase Negative (Negative) Adenovirus (PCR) Not Detected (NotDetected) B. pertussis DNA (PCR) Not Detected (NotDetected) B.parapertussis DNA PCR Not Detected (NotDetected) C. pneumoniae DNA (PCR) Not Detected (NotDetected) Coronavirus OC43 (PCR) Not Detected (NotDetected) Coronavirus HKU1 (PCR) Not Detected (NotDetected) Coronavirus 229E (PCR) Not Detected (NotDetected) SARS-CoV-2 (PCR) Not Detected (NotDetected) Coronavirus NL63 (PCR) Not Detected (NotDetected) Human Metapneumovir PCR Not Detected (NotDetected) Influenza Type A (PCR) Not Detected (NotDetected) Influenza Type B (PCR) Not Detected (NotDetected) M. pneumoniae (PCR) Not Detected (NotDetected) Parainfluenza 1 (PCR) Not Detected (NotDetected) Parainfluenza 2 (PCR) Not Detected (NotDetected) Parainfluenza 3 (PCR) Not Detected (NotDetected) Parainfluenza 4 (PCR) Not Detected (NotDetected) RSV (PCR) Not Detected (NotDetected) Entero/Rhino (PCR) Not Detected (NotDetected) Administered Medications Acetaminophen (Acetaminophen 325 Mg Tab) 650 mg PO Q4H PRN PRN Reason: Pain or Fever Stop: 11/08/24 18:46 Last Admin: 10/09/24 19:12 Dose: 650 mg Documented By: JUICE Insulin Aspart (Insulin Aspart Per Unit Charge) 0 units SC ACHS MACY Stop: 11/08/24 16:29 Last Admin: 10/09/24 19:12 Dose: 6 units Documented By: JUICE Co-signed By: DEANN Discontinued Medications Sodium Chloride (Nss) 1,000 mls @ 999 mls/hr IV .Q1H1M ONE Stop: 10/09/24 15:55 Last Infusion: 10/09/24 17:46 Dose: Infused Documented By: Admin: 10/09/24 14:59 Dose: 999 mls/hr Documented By: LONI Insulin Human Regular (Novolin-R Insulin Per Unit Charge) 10 units IV NOW STA Stop: 10/09/24 14:56 Last Admin: 10/09/24 15:03 Dose: 10 units Documented By: LONI Co-signed By: ONESIMO Imaging Data Radiologist's Impression: Chest X-Ray 10/09/24 14:55 XR chest 1V portable CLINICAL HISTORY: sob COMPARISON STUDY: 05/29/2022 FINDINGS: Heart size and pulmonary vasculature are normal. No effusion, consolidation, or pneumothorax. IMPRESSION: No acute findings. ACT 112: Negative or not required by law. Electronically signed by: Mario Alberto Pacheco M.D. 10/09/2024 3:25 PM Discharge Plan Visit Data Chief Complaint: Illness Stated Complaint: THIRSTY, HEADACHE, VISUAL DISTURBANCE, WEAK ED Provider: Ramy Contreras Discharge Problem: Hyperglycemia, Elevated liver enzymes, Increased thirst, Dizziness Patient Disposition: Admitted As Inpatient Condition: Fair Discharge Instructions Interventions: ED Discharge Assessment Last Done: 10/09/24 16:54
[2024-10-09 15:13] LABS: Appearance Urine Clear (Clear); Bilirubin Urine Negative (Negative); Blood Urine Negative (Negative); Color Urine Yellow; Glucose Urine UA 3+ (Negative); Ketones Urine Trace (Negative); Leukocyte Esterase Urine Negative (Negative); Nitrite Urine Negative (Negative); Protein Urine Negative (Negative); Specific Gravity Urine 1.042 (1.000-1.030); Urobilinogen Urine Negative (Negative)
--- NOTE | 2024-10-09 15:19 | History & Physical Report ---
<Statement entered by Hero Vallejo, DO - 10/09/24 18:55> I have seen and examined the patient and have discussed the case with the advance practice provider. I have reviewed the advanced practitioner's documentation, and I agree with, and take responsibility for that plan of care. Patient seen while still in the ED. Still complaining of extreme thirst, asking for more ice chips. Reviewed with the patient how the body causes her to have severe thirst to try and dilute the sugar in her bloodstream, also explained how the frequent urination is also how the body tries to get rid of excess sugar. With patient's cirrhosis, she may be limited onto what oral medications can be used for diabetes management. Will start her initial care with insulin. May benefit from starting with insulin and then determining whether she can be then converted to oral medications based on how high her initial A1c is and how quickly it becomes controlled. Explained this to the patient, understands that she will most likely be starting on insulin and may need to stay on insulin because that may be her best option considering her liver cirrhosis. Further plan of care as outlined below I spent a total of 20 minutes coordinating, documenting, and providing care for this patient excluding time spent by another provider/QHP. Date of Service October 09, 2024 Assessment & Plan (1) Hyperglycemia due to type 2 diabetes mellitus: (2) Cirrhosis of liver: (3) GERD (gastroesophageal reflux disease): (4) Hypertension: (5) Hyperlipidemia: Plan This is a 64 y/o female with cirrhosis, presumed secondary to steatohepatitis vs. medication-induced, RA, GERD, HTN, dyslipidemia, and other history as outlined below who presented to the ED today for evaluation of worsening symptoms including dry mouth, polydipsia, and fatigue. Work-up in the ED revealed blood glucose of 498. Upon review of patient's outpatient records, her last A1c was 6.1 on 10/31/21 when she was diagnosed with prediabetes. Pt has not had a f/u A1c since then. PCP notes from the last two months were also reviewed to determine outpatient interventions. #Newly diagnosed DM2 - A1c pending #Hyperglycemia - Admit to med telemetry - Insulin sliding scale, consult glycemic pharmacy for assistance with medication initiation and management - Consult music educator - Diabetic diet, BSGs - Labs in the AM - CBC, BMP, lipid panel #Hypertension - chronic, elevated BP in the ED but pt unsure if she took her medications this morning - Resume outpatient regimen - amlodipine, losartan - and monitor - Will continue to hold HCTZ for now since pt stopped this on her own due to polyuria but may need to reconsider pending clinical course #Hyperlipidemia - Chronic, continue statin #GERD - Chronic, continue PPI #Cirrhosis with thrombocytopenia - No evidence of decompensation at present, routine GI f/u Pt seen and reviewed with collaborating physician, Dr. Vallejo. Plan of care discussed and as outlined above. Code status: full code DVT Prophylaxis: SCDs in view of thrombocytopenia related to cirrhosis Shirley Estrada PA-C History of Present Illness Chief Complaint: polydipsia, wt loss, fatigue x 1.5 months Primary Care Provider: Bruna Kaur MD This is a 64 y/o female with cirrhosis, presumed secondary to steatohepatitis vs. medication-induced, RA, GERD, HTN, dyslipidemia, and other history as outlined below who presented to the ED today for evaluation of worsening symptoms including dry mouth, polydipsia, and fatigue. Pt reports her co-workers noted that she looked "tired" in Jun/Jul and she felt "off" during that time. Over the holidays, she was visiting family in [place] and wasn't able to participate in the activities due to fatigue. When she returned to [place] in early August, she started feeling particularly ill, even missing her last couple days of work before jail. Since then, she has noted progressive polydipsia consuming at least 8-10 20-oz bottles of water per day plus iced tea. She notes polyuria with associated urgency, nocturia x4/night, and occasional incontinence. She has also noted intermittent dysuria but no hematuria. Her appetite has been variable but most recently has been poor with limited food intake. She is craving cold drinks and foods over the last few weeks. She reports at least 15 lb wt loss (unintentional) since her symptoms started. Her vision has been blurry and "dark" at times but fluctuating. Her last eye exam was in August 2023 - she denies similar issues with vision previously. She has been dizzy intermittently but denies syncope, chest pain, palpitations. She has been complaining of dyspnea on exertion and has seen her PCP for this complaint. She was treated with a course of Augment in August without relief. She followed up in early September and had a chest x-ray done, which was clear. She was given a five day prednisone burst and course of doxycycline, which she did not finish because it was not helpful. She also tried stopping her HCTZ a few days ago because she thought it might help with the frequent urination. She reports a generalized sensation of stomach upset but denies vomiting or diarrhea. She is scheduled to have an EGD on Wednesday as an outpatient. Allergies Allergy/AdvReac Type Severity Reaction Status Date / Time sulfamethoxazole Allergy Intermediate ITCHING Verified 10/09/24 15:07 trimethoprim Allergy Intermediate ITCHING Verified 10/09/24 15:07 naproxen AdvReac Intermediate NAUSEA AND Verified 10/09/24 15:07 VOMITNNG Home Medications Medication Instructions Recorded Confirmed Type losartan 100 mg tablet 100 mg PO QAM 01/24/20 10/09/24 History atorvastatin 20 mg tablet 20 mg PO QAM 11/05/20 10/09/24 History amlodipine 5 mg tablet 5 mg PO DAILY 10/09/24 10/09/24 History pantoprazole 40 mg tablet,delayed 40 mg PO DAILY 10/09/24 10/09/24 History release Past Med/Surg History Problem List (Updated 10/09/24 @ 18:00 by Karina Estrada PA-C) Hyperglycemia due to type 2 diabetes mellitus Hypertension Immunocompromised (Acute) GERD (gastroesophageal reflux disease) Hyperlipidemia Rheumatoid arthritis (Acute) Medical History (Updated 10/09/24 @ 18:00 by Karina Estrada PA-C) Vitamin D deficiency 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 Prediabetes diet controlled Osteoarthritis Kidney stones IBS (irritable bowel syndrome) Migraine hx of Insomnia Surgical History (Updated 10/09/24 @ 16:52 by Karina Estrada PA-C) History of appendectomy History of hysterectomy History of incision and drainage Left Hip Incision and Drainage H/O endoscopic retrograde cholangiopancreatography History of dilatation and curettage History of cystoscopy History of lithotripsy History of esophagogastroduodenoscopy (EGD) History of colonoscopy History of tooth extraction History of cholecystectomy Social History Smoking Status: Former smoker Second Hand Exposure: No; Do You Dip or Chew Tobacco: No; Hx Alcohol Use: No Hx Substance Use: No Preferred Language: Slovak Communication Ability: Effective Supervisor [employer] Required: No Beliefs That Will Affect Care: None marital status: Current Living Situation: Spouse 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 at Home: Yes Assistive Devices: Glasses Review of Systems Review of Systems: All systems reviewed & are unremarkable except as noted in Subjective Physical Exam Physical Exam: General: awake, alert, NAD HEENT: no scleral icterus, slightly dry oral mucosa Neck: supple, trachea midline Heart: RRR, no M/G/R Lungs: CTA bilaterally Abdomen: soft, +BS, mild diffuse tenderness Extremities: distal pulses intact and equal, no pedal edema Neurologic: Ox3, no confusion or dysarthria, moving all extremities, no focal deficits Skin: warm, dry, no jaundice Results & Data Results & Data Vital Signs (Past 12 Hours) Vital Signs Temp Pulse Pulse Resp BP BP Pulse Ox 10/09/24 14:56 85 17 170/93 H 99 10/09/24 14:46 89 10/09/24 12:34 36.4 C L 93 H 20 167/81 H 98 O2 Del Method 10/09/24 14:56 Room Air 10/09/24 14:46 10/09/24 12:34 Room Air Laboratory Results Lab Results 10/09/24 10/09/24 Range/Units 12:59 14:40 WBC 3.87 L (4.8-10.8) K/ul RBC 4.45 (4.20-5.40) M/uL Hgb 12.9 (12.0-16.0) g/dl Hct 37.0 (37.0-47.0) % MCV 83.1 (80.0-100.0) fL MCH 29.0 (25.0-34.0) pg MCHC 34.9 (32.0-36.0) g/dL RDW Std Deviation 43.0 (36.4-46.3) fL RDW Coeff of Rad 14.3 (11.5-14.5) % Plt Count 59 L (130-400) K/uL MPV 10.5 (9.4-12.4) fL Immature Gran % (Auto) 0.8 % Neut % (Auto) 74.6 % Lymph % (Auto) 16.0 % [place] % (Auto) 7.8 % Eos % (Auto) 0.5 % Baso % (Auto) 0.3 % Neut # (Auto) 2.89 (1.40-6.50) K/uL Lymph # (Auto) 0.62 L (1.20-3.40) K/uL [place] # (Auto) 0.30 (0.11-0.59) K/uL Eos # (Auto) 0.02 (0.00-0.50) K/uL Baso # (Auto) 0.01 (0.00-0.20) K/uL Immature Gran # (Auto) 0.03 (0.01-0.20) K/uL Sodium 131 L (136-145) mmol/L Potassium 4.1 (3.5-5.1) mmol/L Chloride 100 (98-107) mmol/L Carbon Dioxide 23 (21-32) mmol/L Anion Gap 8 (3-11) BUN 12 (6-23) mg/dl Creatinine 0.87 (0.6-1.2) mg/dl Est Cr Clr Drug Dosing 62.8 ml/min eGFR 75.28 BUN/Creatinine Ratio 13.8 (10-20) Glucose 498 H* (70-99(Fasting)) mg/dl Calcium 9.7 (8.6-10.3) mg/dl Total Bilirubin 2.2 H (0.2-1.0) mg/dl AST 107 H (13-39) U/L ALT 86 H (7-52) U/L Alkaline Phosphatase 314 H (34-104) U/L Total Protein 7.0 (6.0-8.3) gm/dl Albumin 3.9 (3.4-5.0) gm/dl Globulin 3.1 (2.5-4.0) gm/dl Albumin/Globulin Ratio 1.3 (0.9-2) Urine Color Yellow Urine Appearance Clear (Clear) Urine pH 6.0 (4.5-7.5) Ur Specific [place] 1.042 H (1.000-1.030) Urine Protein Negative (Negative) Urine Glucose (UA) 3+ H (Negative) Urine Ketones Trace H (Negative) Urine Blood Negative (Negative) Urine Nitrite Negative (Negative) Urine Bilirubin Negative (Negative) Urine Urobilinogen Negative (Negative) Ur Leukocyte Esterase Negative (Negative) Adenovirus (PCR) Not Detected (NotDetected) B. pertussis DNA (PCR) Not Detected (NotDetected) B.parapertussis DNA PCR Not Detected (NotDetected) C. pneumoniae DNA (PCR) Not Detected (NotDetected) Coronavirus OC43 (PCR) Not Detected (NotDetected) Coronavirus HKU1 (PCR) Not Detected (NotDetected) Coronavirus 229E (PCR) Not Detected (NotDetected) SARS-CoV-2 (PCR) Not Detected (NotDetected) Coronavirus NL63 (PCR) Not Detected (NotDetected) Human Metapneumovir PCR Not Detected (NotDetected) Influenza Type A (PCR) Not Detected (NotDetected) Influenza Type B (PCR) Not Detected (NotDetected) M. pneumoniae (PCR) Not Detected (NotDetected) Parainfluenza 1 (PCR) Not Detected (NotDetected) Parainfluenza 2 (PCR) Not Detected (NotDetected) Parainfluenza 3 (PCR) Not Detected (NotDetected) Parainfluenza 4 (PCR) Not Detected (NotDetected) RSV (PCR) Not Detected (NotDetected) Entero/Rhino (PCR) Not Detected (NotDetected) Medications Administered Sodium Chloride (Nss) 1,000 mls @ 999 mls/hr IV .Q1H1M ONE Stop: 10/09/24 15:55 Last Admin: 10/09/24 14:59 Dose: 999 mls/hr Documented By: LONI Discontinued Medications Insulin Human Regular (Novolin-R Insulin Per Unit Charge) 10 units IV NOW STA Stop: 10/09/24 14:56 Last Admin: 10/09/24 15:03 Dose: 10 units Documented By: LONI Co-signed By: ONESIMO (1) Hyperglycemia due to type 2 diabetes mellitus Diabetes mellitus adjunct faculty for medical terminology insulin use: without adjunct faculty for medical terminology use Qualified Code(s): E11.65 - Type 2 diabetes mellitus with hyperglycemia (2) Cirrhosis of liver Ascites presence: without ascites Hepatic cirrhosis type: unspecified hepatic cirrhosis Qualified Code(s): K74.60 - Unspecified cirrhosis of liver (3) GERD (gastroesophageal reflux disease) Esophagitis presence: esophagitis presence not specified Qualified Code(s): K21.9 - Gastro-esophageal reflux disease without esophagitis (4) Hypertension Hypertension type: unspecified Qualified Code(s): I10 - Essential (primary) hypertension (5) Hyperlipidemia Hyperlipidemia type: unspecified Qualified Code(s): E78.5 - Hyperlipidemia, unspecified
--- NOTE | 2024-10-09 15:26 | XRay Report ---
XR chest 1V portable CLINICAL HISTORY: sob COMPARISON STUDY: 05/29/2022 FINDINGS: Heart size and pulmonary vasculature are normal. No effusion, consolidation, or pneumothora x. IMPRESSION: No acute findings. ACT 112: Negative or not required by law. Electronically signed by: Mario Alberto Pacheco M.D. 10/09/2024 3:25 PM
[2024-10-09 15:31] LABS: Magnesium 1.8 mg/dl (1.7-2.4); Phosphorus 3.3 mg/dl (2.5-4.9)
[2024-10-09 15:48] LABS: Thyroid Stimulating Hormone 1.938 uIu/ml (0.300-4.500)
--- NOTE | 2024-10-09 15:50 | Electrocardiogram Report ---
Test Reason : Blood Pressure : */* mmHG Vent. Rate : 86 BPM Atrial Rate : 86 BPM P-R Int : 146 ms QRS Dur : 66 ms QT Int : 394 ms P-R-T Axes : 2 30 36 degrees QTcB Int : 471 ms Normal sinus rhythm Cannot rule out Anterior infarct , age undetermined Abnormal ECG When compared with ECG of 29-May-2022 14:39, No significant change was found Confirmed by Colton Arellano ([id number]) on 10/09/2024 3:50:31 PM Referred By: Confirmed By: Colton Arellano
[2024-10-09] MEDS ORDERED: GLUCOSE 40% GEL 15 GM TUBE PO PRN (16:14)
[2024-10-09] MEDS ORDERED: PHARMACY GLYCEMIC MGMT CONSULT PRN (16:14)
[2024-10-09] MEDS ORDERED: CARBOHYDRATES FOR HYPOGLYCEMIA PO PRN (16:14)
[2024-10-09] MEDS ORDERED: GLUCAGON FOR INJ 1 MG VIAL SQ PRN (16:14)
[2024-10-09] MEDS ORDERED: DEXTROSE 50% 50 ML SYRINGE IV PRN (16:14)
[2024-10-09] MEDS ORDERED: GLUCOSE 10 TAB/TUBE PO PRN (16:14)
[2024-10-09] MEDS: INSULIN ASPART PER UNIT CHARGE SC SCH (19:12)
[2024-10-09] MEDS: ACETAMINOPHEN 325 MG TAB PO PRN (19:12)
--- OUTSIDE RECORDS SUMMARY | 2024-10-09 19:52 | External Medical Summary | Summary of Care ---
Author Name Unknown Organization [facility] Address [address] [place] [address] Phone [phone] Care Team Providers Care Breaker Tender Name Role Phone Bruna Kaur MD Primary Care Provider Reason for Visit * Reason Onset Date Comments Appointment 08/02/2024 Egd Encounter Details Date Type Department Care Team (Late st Contact Info) Description 08/02/2024 Telephone Gastroenterology, [facility] [address] [place] [address] Specified, Zz No Resource [address] [place] [address] Appointment (Egd ) Allergies Active Allergy Reactions Criticality Noted Date Comments Sulfamethoxazole-Trimethopr im 08/07/2019 Naproxen Nausea/vomiting High 02/20/2002 Other reaction(s): nausea Naproxen Sodium Medium 12/21/2022 Sulfamethoxazole High 03/14/2020 Trimethoprim High 03/14/2020 documented as of this encounter (statuses as of 08/02/2024) Medications Acetaminophen Extra Strength 500 MG Oral Tablet 2 Active tiZANidine HCl 4 MG Oral Tablet (Zanaflex)Indicat ions:Spasm of muscle Take 1 Tablet by mouth every 8 hours as needed for Muscle spasms. 30 Tablet 1 3 Active Zoster Vac Recomb Adjuvanted 50 MCG/0.5ML Intramuscular Suspension Reconstituted (Shingrix)Indicat ions:Need for zoster vaccination Inject 0.5 mL into a large muscle now and repeat dose in 60 to 180 days 1 Each 1 3 Active Famotidine 20 MG Oral Tablet (Pepcid) Active Multivitamin Women 50+ Oral Tablet Take by mouth daily. Active Aspirin 81 MG Oral Tablet Delayed Release Take 1 Tablet by mouth at bedtime. Active Atorvastatin Calcium 20 MG Oral Tablet (Lipitor)Indicati ons:Dyslipidemia, goal LDL below 100 Take 1 Tablet by mouth in the morning. In the morning.. 90 Tablet 3 4 Active Losartan Potassium 100 MG Oral Tablet (Cozaar)Indicatio ns:Hypertension goal BP (blood pressure) < 130/80 Take 1 Tablet by mouth in the morning. 90 Tablet 3 4 Active amLODIPine Besylate 5 MG Oral Tablet (Norvasc)Indicati ons:Hypertension goal BP (blood pressure) < 130/80 Take 1 Tablet by mouth daily. 90 Tablet 3 4 Active Additional Information Patient taking differently:5 mg OralDaily(AM), Reported on 08/02/2024 hydroCHLOROthiazi de 25 MG Oral Tablet (Hydrodiuril)Yuli cations:Leg swelling,HTN, goal below 140/90 Take 1 Tablet by mouth in the morning. 90 Tablet 4 Active Hyoscyamine Sulfate 0.125 MG Sublingual Tablet Sublingual (Levsin) Take 1 Tablet by mouth 3 times a day as needed for Cramping. 30 Tablet 3 4 Active Ondansetron HCl 4 MG Oral Tablet Take 1 Tablet by mouth every 8 hours as needed for Nausea. 30 Tablet 1 4 Active Omeprazole 20 MG Oral Capsule Delayed Release (PriLOSEC)Indicat ions:Gastroesopha geal reflux disease with esophagitis without hemorrhage TAKE 1 CAPSULE BY MOUTH EVERY MORNING 90 Capsule 1 4 Active Sucralfate 1 GM Oral Tablet (Carafate) Take 1 Tablet by mouth in the morning and 1 Tablet before bedtime. Do all this for 14 days. Crush and mix with water. 28 Tablet 4 025 Active Pantoprazole Sodium 40 MG Oral Tablet Delayed Release (Protonix) Take 1 Tablet by mouth in the morning and 1 Tablet before bedtime. 180 Tablet 4 025 Active documented as of this encounter (statuses as of 08/02/2024) Active Problems Problem Noted Date Diagnosed Date Preoperative general physical examination 2023 Secondary esophageal varices without bleeding Overview (11/17/2023): EGD 2023. Also portal hypertensive gastropathy. Repeat EGD in 1yr. Colon polyp 11/17/2023 Overview (11/17/2023): 11/2023. Two polyps. Easy friability due to portal hypertensive colopathy. Thrombocytopenia 12/02/2022 Hepatic cirrhosis 12/02/2022 Vitamin D deficiency 11/06/2022 Food insecurity 10/26/2022 Overview: Per [facility] Protocol Other cirrhosis of liver 05/29/2022 Steatohepatitis 10/29/2021 Overview (10/29/2021): With possible cirrhosis on liver biopsy 2021. Workup in progress, ? Related to rheumatoid arthritis and or leflunomide. Pancreatic cyst 10/13/2021 Overview (10/13/2021): 6 mm, seen on endoscopic ultrasound 09/2021. Repeat MRI in 2 years for surveillance. Prediabetes 07/28/2021 Overview: Per Prediabetes protocol Rheumatoid arthritis involvi ng both hands with positive rheumatoid factor 07/10/2019 S/P hysterectomy with oophorectomy 05/04/2018 Kidney stones 04/19/2014 Back pain, chronic 04/20/2013 Overview (04/20/2014): This is purely musculo-skeletal. The stones are not causing this pain. Dyslipidemia, goal LDL below 100 03/11/2012 HTN, goal below 140/90 12/26/2010 OA (osteoarthritis) of knee Overview (07/24/2011): bilateral Reflux esophagitis DDD (degenerative disc disease), cervical documented as of this encounter (statuses as of 08/02/2024) Resolved Problems Problem Noted Date Diagnosed Date Resolved Date Pyogenic arthritis of left hip 11/06/2022 11/26/2023 Prediabetes 09/28/2017 11/28/2020 Overview: Per Prediabetes protocol #1 Calculus of ureter 06/28/2014 4 Overview (06/28/2014): Right upper ureter- 8 x 8 mm. Acute appendicitis 12/28/2012 7 Sacroiliac joint pain 03/11/20122018 Dyslipidemia, goal to be determined 07/23/2009 03/11/2012 Overview (07/23/2009): Per Lipid Taxonomy. Mixed dyslipidemia 08/24/2008 9 Overview (07/23/2009): Per Lipid Taxonomy. Major depressive disorder 08/24/2008 Overview (06/08/2017): ICD-10 update of inactive term ADVANCE DIRECTIVE INFORMATION 07/27/2006 06/19/2024 Overview (07/27/2006): No, Advance Directive brochure given to patient. NONE 03/14/2003 08/19/2011 documented as of this encounter (statuses as of 08/02/2024) Immunizations Name Administration Dates Next Due COVID-19 mRNA, LNP-s, No Pre serve, 2-Dose Series (Moderna) 10/08/2020,09/06/2020 HEP A - Hepatitis A (Adult > 18 yrs) 04/30/2022, 10/29/2021 Hepatitis B, 20+ yrs 04/30/2022,11/28/2021,10/29 Pneumococcal Conjugate Vacc, 13 Valent (Prevnar) 07/10/2019 Pneumococcal Polysaccharide PPV23 (Pneumovax) 02/23/2020 Seasonal Influenza, PF, 6 M & above, IM , (FluLaval or Fluzone) 06/03/2022,05/28/2021,07/10/2019,04/27,05/05/2017 Seasonal Influenza, Quadriva lent, No Preserve, IM 05/14/2020 Seasonal Influenza, Trivalen t, (IIV3), PF, (Fluzone) 06/22/2024 TD - Tetanus/Diptheria (ADULT) 05/16/2004 TDAP (age 10 and older)(Boostrix) 10/29/2021 TDAP, Age 7 and older, IM (Adacel) 06/05,05/16/2010(Deferred: Patient Refused) documented as of this encounter Social History Tobacco Use Types Packs/Day Years Used Date Smoking Tobacco: Former Cigarettes Q uit: 08/24/1982 Smokeless Tobacco: Never Comments:Pt was just a socia l smoker Alcohol Use Standard Drinks/Week Comments Not Currently 0 (1 standard drink = 0.6 oz pur e alcohol) none since 2019 PHQ-2 Answer Date Recorded PHQ Adult Total Score 0 10/21/2022 Hunger Vital Sign Answer Date Recorded Within the past 12 months, y ou worried that your food would run out before you got the money to buy more. Never true Within the past 12 months, t he food you bought just didn't last and you didn't have money to get more. 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 documented in this encounter Plan of Treatment Upcoming Encounters Date Type Department Care Team (Latest Contact Info) Description 10/13/2024 10:00 AM EST Office Visit Rheumatology [address] [place] [phone] Leidy Nunn CRNP [address] [facility] [place] [address] 11/08/2024 2:00 PM EDT Hospital Encounter ENDO [facility], Endoscopy Room [facility] [address] [place] [phone] Sunni Barrios MD [address] [place] [address] 11/08/2024 2:00 PM EDT - 11/08/2024 2:30 PM EDT Surgery ENDO [facility], Endoscopy Room [facility] [address] [place] [phone] Sunni Barrios MD [address] [place] [address] ESOPHAGOGASTRODUODENOSCOPY (EGD), FLEXIBLE, TRANSORAL, DIAGNOSTIC 11/09/2024 10:30 AM EDT Office Visit Gastroenterology , [facility] [address] [place] [address] Anastasia Mendez CRNP [address] [place] [address] 12/20/2024 10:00 AM EDT Office Visit Family Practice [facility] [address] [place] [address] Bruna Kaur MD [address] [place] [address] Scheduled Procedures Name Priority Associated Diagnoses Date/Ti me ESOPHAGOGASTRODUODENOSCOPY ( EGD), FLEXIBLE, TRANSORAL, ENDOSCOPIC ULTRASOUND IPMN (intraductal papillary mucinous neoplasm) 08/02/2024 10:52 AM EST ESOPHAGOGASTRODUODENOSCOPY ( EGD), FLEXIBLE, TRANSORAL, DIAGNOSTIC IPMN (intraductal papillary mucinous neoplasm) 08/02/2024 10:52 AM EST ESOPHAGOGASTRODUODENOSCOPY ( EGD), FLEXIBLE, TRANSORAL, DIAGNOSTIC Varices of esophagus determined by endoscopy (HCC) 11/08/2024 2:00 PM EDT COLONOSCOPY FLEXIBLE PROXIMA L DIAGNOSTIC Recall History of colonic polyps ESOPHAGOGASTRODUODENOSCOPY ( EGD), FLEXIBLE, TRANSORAL, DIAGNOSTIC Recall Cirrhosis (HCC) Portal hypertensive gastropathy (HCC) Esophageal varices (HCC) Gardner's esophagus Health Maintenance Due Date Last Done Comments HIV Screening 1977 Cologuard 2007 Sigmoidoscopy 2007 Zoster Vaccines (1 of 2) 2012 Fecal Occult Blood Test 08/10/2020 08/10/2019 Depression Screening 10/22/2023 10/21/2022 HbA1c 09/24/2024 09/24/2023, 12/2022, 11/03/2022, Additional history exists Mammogram 10/06/2024 10/06/2023, 0 12/2022, 08/19/2021, Additional history exists GFR 06/22/2025 06/22/2024, 0 04/2024, 05/20/2023, Additional history exists Albumin/Creatinine Ratio 09/24/2026 09/24/2023, 12/2022 Pneumococcal Vaccine: Pediatrics (0 to 5 Years) and At-Risk Patients (6 to 64 Years) (3 of 3 - PPSV23 or PCV20) 2027 02/23/2020, 07/10/2019 Lipid Panel 12/23/2027 12/22/2022, 10/14, 05/05/2021, Additional history exists Colonoscopy 11/16/2028 11/17/2023, 040 10/2023, 05/17/2013, Additional history exists Colorectal Cancer Screening 11/16/2028 DTap/Tdap Vaccines (3 - Td or Tdap) 10/30/2031 10/29/2021, 06/05/2010, 05/16/2004 COVID-19 Vaccine Discontinued 10/08/2020, 09/06/2020 Hepatitis C Screening Completed 08/15/2021, 016 Hepatitis B Vaccine Completed 04/30/2022, 11/28/2021, 10/29/2021 Influenza Vaccine (FLU shot) Completed 06/22/2024, 06/03/2022, 05/28/2021, Additional history exists HPV (Gardasil) Vaccine Aged Out No lo nger eligible based on patient's age to complete this topic MENINGOCOCCAL (MENACTRA/MENVEO) Aged Out No longer eligible based on patient's age to complete this topic documented as of this encounter Medical Devices Implanted Type Area Crab Picker Device Identifier Shelf Expiration Date Model / Serial / Lot Hemostatic Clip Res 235cm - [id number] Implanted:Qty: 2 on 11/17/2023 by Zakia Mathur DO at ENDOSCOPY [facility] : ENDOSCOPY 04/12/2026 [id number] / / documented as of this encounter Care Teams Breaker Tender Relationship Specialty Start Date End Date Bruna Kaur MD [address] [place] [address] PCP - General Internal Medicine 06/03/21 documented as of this encounter
--- OUTSIDE RECORDS SUMMARY | 2024-10-09 19:52 | External Medical Summary | Summary of Care ---
Author Name Unknown Organization [facility] Address [address] [place] [address] Phone [phone] Care Team Providers Care Money Room Supervisor Name Role Phone Bruna Kaur MD Primary Care Provider Reason for Visit * Reason Onset Date Comments Appointment 08/02/2024 Egd Encounter Details Date Type Department Care Team (Late st Contact Info) Description 08/02/2024 Telephone Gastroenterology, [facility] [address] [place] [address] Specified, Zz No Resource [address] [place] [address] Appointment (Egd ) Allergies Active Allergy Reactions Criticality Noted Date Comments Sulfamethoxazole-Trimethopr im 08/07/2019 Naproxen Nausea/vomiting High 02/20/2002 Other reaction(s): nausea Naproxen Sodium Medium 12/21/2022 Sulfamethoxazole High 03/14/2020 Trimethoprim High 03/14/2020 documented as of this encounter (statuses as of 08/03/2024) Medications Acetaminophen Extra Strength 500 MG Oral [...] as of this encounter (statuses as of 08/03/2024) Active Problems Problem Noted Date Diagnosed Date [...] as of this encounter (statuses as of 08/03/2024) Resolved Problems Problem Noted Date Diagnosed Date [...] as of this encounter (statuses as of 08/03/2024) Immunizations Name Administration Dates Next Due COVID-19 [...] 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 Jones on 10/13 for the repeat * Telephone Encounter - Sunni Barrios MD - 08/02/2024 5:07 PM EST If none on mine then you can try or * Telephone Encounter - Valencia Michel OSA [...] Care Team (Latest Contact Info) Description 10/13/2024 9:30 AM EST Hospital Encounter ENDO [facility], Endoscopy Room [facility] [address] [place] [phone] Bridger Harris MD [address] [place] [address] 10/13/2024 9:30 AM EST - 10/13/2024 10:00 AM EST Surgery ENDO [facility], Endoscopy Room [facility] [address] [place] [phone] Bridger Harris MD [address] [place] [address] ESOPHAGOGASTRODUODENOSCOPY (EGD), FLEXIBLE, TRANSORAL, DIAGNOSTIC 10/13/2024 10:00 AM EST Office Visit Rheumatology [address] [place] [phone] Leidy Nunn CRNP [address] [place] [address] [place] [address] 11/09/2024 10:30 AM EDT Office Visit Gastroenterology , [facility] [address] [place] [address] Anastasia Mendez CRNP [address] [place] [address] 12/20/2024 10:00 AM EDT Office Visit Family [facility] [address] [place] [address] Bruna Kaur MD [address] [place] [address] Scheduled Procedures Name Priority Associated Diagnoses Date/Ti me ESOPHAGOGASTRODUODENOSCOPY ( EGD), FLEXIBLE, TRANSORAL, DIAGNOSTIC Varices of esophagus determined by endoscopy (HCC) 10/13/2024 9:30 AM EST COLONOSCOPY FLEXIBLE PROXIMA L DIAGNOSTIC Recall History [...] 11/03/2022, Additional history exists Mammogram 10/06/2024 10/06/2023, 12/2022, 08/19/2021, Additional history exists GFR 06/22/2025 06/22/2024, 0 04/2024, 05/20/2023, Additional history exists Albumin/Creatinine Ratio 09/24/2026 09/24/2023, 12/2022 Pneumococcal Vaccine: Pediatrics (0 to 5 Years) and At-Risk Patients (6 to 64 Years) (3 of 3 - PPSV23 or PCV20) 2027 02/23/2020, 07/10/2019 Lipid Panel 12/23/2027 12/22/2022, 10/14, 05/05/2021, Additional history exists Colonoscopy 11/16/2028 11/17/2023, 04/0 10/2023, 05/17/2013, Additional history exists Colorectal Cancer [...] this encounter Medical Devices Implanted Type Area Nylon Winder Device Identifier Shelf Expiration Date Model / Serial / Lot Hemostatic Clip Res 235cm - [id number] Implanted:Qty: 2 on 11/17/2023 by Zakia Mathur DO at ENDOSCOPY [facility] : ENDOSCOPY 04/12/2026 [id number] / / documented as of this encounter Care Teams Money Room Supervisor Relationship Specialty Start Date End Date Bruna Kaur MD [address] [place] [address] PCP - General Internal Medicine 06/03/21 documented as of this encounter
--- OUTSIDE RECORDS SUMMARY | 2024-10-09 19:52 | External Medical Summary | Summary of Care ---
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 file Not on file documented as of this encounter Miscellaneous Notes * Telephone Encounter - Sunni Barrios MD [...] EST Hospital Encounter [facility], Endoscopy Room [facility] [address] [place] [phone] Bridger Harris MD [address] [place] [address] 10/13/2024 9:30 AM EST - 10/13/2024 10:00 AM EST Surgery [facility], Endoscopy Room [facility] [address] [place] [phone] Bridger Harris MD [address] [place] [address] ESOPHAGOGASTRODUODENOSCOPY (EGD), FLEXIBLE, TRANSORAL, DIAGNOSTIC 10/13/2024 10:00 AM EST Office Visit Rheumatology [address] [place] [phone] Lediy Nunn CRNP [address] [place] [address] 11/09/2024 10:30 AM EDT Office Visit Gastroenterology , [facility] [address] [address] Anastasia Mendez CRNP [address] [place] [address] 12/20/2024 10:00 AM EDT Office Visit Family Practice [facility] [address] [place] [address] Bruna Kaur MD [address] [place] [address] Scheduled Procedures Name Priority Associated Diagnoses Date/Ti [...] 08/19/2021, Additional history exists GFR 06/22/2025 06/22/2024, 04/2024, 05/20/2023, Additional history exists Albumin/Creatinine Ratio [...] this encounter Medical Devices Implanted Type Area Associate Pastor Device Identifier Shelf Expiration Date Model / Serial / Lot Hemostatic Clip Res 235cm - [id number] Implanted:Qty: 2 on 11/17/2023 by Zakia Mathur DO at ENDOSCOPY [facility] : ENDOSCOPY 04/12/2026 [id number] / / documented as of this encounter Care Teams Property Supervisor Relationship Specialty Start Date End Date Bruna Kaur MD [address] [facility] [place] [address] PCP - General Internal Medicine 06/03/21 documented as of this encounter
--- OUTSIDE RECORDS SUMMARY | 2024-10-09 19:52 | External Medical Summary | Summary of Care ---
Author Name Unknown Organization [facility] Address [address] [facility] [address] Phone [phone] Care Team Providers Care Oil Well Perforator Operator Name Role Phone Casimiro Kaur MD Primary Care Provider Reason for Visit * Reason Comments eRx-Medication Refill Encounter Details Date Type Department Care Team (Late st Contact Info) Description 07/30/2024 Refill Family Practice [facility] [address] [place] [address] Casimiro Kaur MD [address] [place] [address] Gastroesophageal reflux disease with esophagitis without hemorrhage Allergies Active Allergy Reactions Criticality Noted Date Comments Sulfamethoxazole-Trimethopr im 08/07/2019 Naproxen Nausea/vomiting High 02/20/2002 Other reaction(s): nausea Naproxen Sodium Medium 12/21/2022 Sulfamethoxazole High 03/14/2020 Trimethoprim High 03/14/2020 documented as of this encounter (statuses as of 07/31/2024) Medications Acetaminophen Extra Strength 500 MG Oral Tablet 08/31/19 22 Active tiZANidine HCl 4 MG Oral Tablet (Zanaflex)Indica tions:Spasm of muscle Take 1 Tablet by mouth every 8 hours as needed for Muscle spasms. 30 Tablet 1 12/03/19 23 Active Zoster Vac Recomb Adjuvanted 50 MCG/0.5ML Intramuscular Suspension Reconstituted (Shingrix)Indica tions:Need for zoster vaccination Inject 0.5 mL into a large muscle now and repeat dose in 60 to 180 days 1 Each 1 12/03/19 23 Active Famotidine 20 MG Oral Tablet (Pepcid) Active Multivitamin Women 50+ Oral Tablet Take by mouth daily. Active Aspirin 81 MG Oral Tablet Delayed Release Take 1 Tablet by mouth at bedtime. Active Atorvastatin Calcium 20 MG Oral Tablet (Lipitor)Indicat ions:Dyslipidemi a, goal LDL below 100 Take 1 Tablet by mouth in the morning. In the morning.. 90 Tablet 3 12/17/19 24 Active Losartan Potassium 100 MG Oral Tablet (Cozaar)Indicati ons:Hypertension goal BP (blood pressure) < 130/80 Take 1 Tablet by mouth in the morning. 90 Tablet 3 12/17/19 24 Active amLODIPine Besylate 5 MG Oral Tablet (Norvasc)Indicat ions:Hypertensio n goal BP (blood pressure) < 130/80 Take 1 Tablet by mouth daily. 90 Tablet 3 12/17/19 24 Active Additional Information Patient taking differently:5 mg OralDaily(AM), Reported on 07/28/2024 hydroCHLOROthiaz kellen 25 MG Oral Tablet (Hydrodiuril)Ind ications:Leg swelling,HTN, goal below 140/90 Take 1 Tablet by mouth in the morning. 90 Tablet 06/22/20 24 Active Hyoscyamine Sulfate 0.125 MG Sublingual Tablet Sublingual (Levsin) Take 1 Tablet by mouth 3 times a day as needed for Cramping. 30 Tablet 3 06/29/20 24 Active Ondansetron HCl 4 MG Oral Tablet Take 1 Tablet by mouth every 8 hours as needed for Nausea. 30 Tablet 1 06/29/20 24 Active Omeprazole 20 MG Oral Capsule Delayed Release (PriLOSEC)Indica tions:Gastroesop hageal reflux disease with esophagitis without hemorrhage TAKE 1 CAPSULE BY MOUTH EVERY MORNING 90 Capsule 1 07/31/20 24 Active Omeprazole 20 MG Oral Capsule Delayed Release (PriLOSEC)Indica tions:Gastroesop hageal reflux disease with esophagitis without hemorrhage TAKE 1 CAPSULE BY MOUTH EVERY MORNING 30 Capsule 5 12/10/19 24 2023 Discontinued documented as of this encounter (statuses as of 07/31/2024) Active Problems Problem Noted Date Diagnosed Date [...] as of this encounter (statuses as of 07/31/2024) Resolved Problems Problem Noted Date Diagnosed Date [...] as of this encounter (statuses as of 07/31/2024) Immunizations Name Administration Dates Next Due COVID-19 [...] 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 Not on file documented as of this encounter Miscellaneous Notes * Telephone Encounter - Raulito Barfield [facility] - 07/31/2024 1:42 PM ESTSigned Prescriptions: Disp Refills Omeprazole 20 MG Oral Capsule Delayed Rele*90 Cap*1 Sig: TAKE 1 CAPSULE BY MOUTH EVERY MORNINGAuthorizing Provider: CASIMIRO KAUR User: RAULITO BARFIELD documented in this encounter Plan of Treatment Upcoming Encounters Date Type Department Care Team (Latest Contact Info) Description 08/02/2024 11:15 AM EST Hospital Encounter ENDO OSS[facility], Endoscopy Room [facility] [address] [place] [phone] Sunni Barrios MD [address] [place] [address] 08/02/2024 11:15 AM EST - 08/02/2024 12:15 PM EST Surgery ENDO [facility], Endoscopy Room [facility] [address] [place] [phone] Sunni Barrios MD [address] [place] [address] ESOPHAGOGASTRODUODENOSCOPY (EGD), FLEXIBLE, TRANSORAL, ENDOSCOPIC ULTRASOUND 10/13/2024 10:00 AM EST Office [place] [address] [place] [phone] Leidy Nunn CRNP [address] [place] [address] [place] [address] 11/09/2024 10:30 AM EDT Office Visit Gastroenterology , [facility] [address] [place] [address] Anastasia Mendez CRNP [address] [place] [address] 12/20/2024 10:00 AM EDT Office Visit Family Practice [facility] [address] [place] [address] Casimiro Kaur MD [address] [place] [address] Scheduled Procedures Name Priority Associated Diagnoses Date/Ti me ESOPHAGOGASTRODUODENOSCOPY ( EGD), FLEXIBLE, TRANSORAL, ENDOSCOPIC ULTRASOUND IPMN (intraductal papillary mucinous neoplasm) 08/02/2024 11:15 AM EST ESOPHAGOGASTRODUODENOSCOPY ( EGD), FLEXIBLE, TRANSORAL, DIAGNOSTIC IPMN (intraductal papillary mucinous neoplasm) 08/02/2024 11:15 AM EST COLONOSCOPY FLEXIBLE PROXIMA L DIAGNOSTIC [...] 05/05/2021, Additional history exists Colonoscopy 11/16/2028 11/17/2023, 0 10/2023, 05/17/2013, Additional history exists Colorectal Cancer [...] this encounter Medical Devices Implanted Type Area Licensed Professional Counselor Device Identifier Shelf Expiration Date Model / Serial / Lot Hemostatic Clip Res 235cm - [id number] Implanted:Qty: 2 on 11/17/2023 by Zakia Mathur DO at ENDOSCOPY [facility] : ENDOSCOPY 04/12/2026 [id number] / / documented as of this encounter Visit Diagnoses Diagnosis Gastroesophageal reflux disease with esophagitis without hemorrhage IPMN (intraductal papillary mucinous neoplasm) Neoplasm of unspecified nature of digestive system documented in this encounter Care Teams Oil Well Perforator Operator Relationship Specialty Start Date End Date Casimiro Kaur MD [address] [place] [address] PCP - General Internal Medicine 06/03/21 documented as of this encounter
--- OUTSIDE RECORDS SUMMARY | 2024-10-09 19:52 | External Medical Summary | Summary of Care ---
Author Name Unknown Organization [facility] Address [address] [facility] [place] [address] Phone [phone] Care Team Providers Care Mailroom Clerk Name Role Phone Bruna Kaur MD Primary Care Provider Reason for Visit * Reason Onset Date Comments Medication Refill 08/02/2024 Encounter Details Date Type Department Care Team (Late st Contact Info) Description 08/02/2024 Refill Gastroenterology, [facility] [address] [place] [address] Sunni Barrios MD [address] [place] [address] Allergies Active Allergy Reactions Criticality Noted Date Comments Sulfamethoxazole-Trimethopr im 08/07/2019 Naproxen Nausea/vomiting High 02/20/2002 Other reaction(s): nausea Naproxen Sodium Medium 12/21/2022 Sulfamethoxazole High 03/14/2020 Trimethoprim High 03/14/2020 documented as of this encounter (statuses as of 08/02/2024) Medications Sucralfate 1 GM Oral Tablet (Carafate) Take 1 Tablet by mouth in the morning and 1 Tablet before bedtime. Do all this for 14 days. Crush and mix with water. 28 Tablet 08/02/20 24 025 Active Pantoprazole Sodium 40 MG Oral Tablet Delayed Release (Protonix) Take 1 Tablet by mouth in the morning and 1 Tablet before bedtime. 180 Tablet 08/02/20 24 025 Active Acetaminophen Extra Strength 500 MG Oral Tablet 08/31/19 22 Suspended tiZANidine HCl 4 MG Oral Tablet (Zanaflex)Indicat ions:Spasm of muscle Take 1 Tablet by mouth every 8 hours as needed for Muscle spasms. 30 Tablet 1 12/03/19 23 Suspended Zoster Vac Recomb Adjuvanted 50 MCG/0.5ML Intramuscular Suspension Reconstituted (Shingrix)Indicat ions:Need for zoster vaccination Inject 0.5 mL into a large muscle now and repeat dose in 60 to 180 days 1 Each 1 12/03/19 23 Suspended Famotidine 20 MG Oral Tablet (Pepcid) Suspended Multivitamin Women 50+ Oral Tablet Take by mouth daily. Suspended Aspirin 81 MG Oral Tablet Delayed Release Take 1 Tablet by mouth at bedtime. Suspended Atorvastatin Calcium 20 MG Oral Tablet (Lipitor)Indicati ons:Dyslipidemia, goal LDL below 100 Take 1 Tablet by mouth in the morning. In the morning.. 90 Tablet 3 12/17/19 24 Suspended Losartan Potassium 100 MG Oral Tablet (Cozaar)Indicatio ns:Hypertension goal BP (blood pressure) < 130/80 Take 1 Tablet by mouth in the morning. 90 Tablet 3 12/17/19 24 Suspended amLODIPine Besylate 5 MG Oral Tablet (Norvasc)Indicati ons:Hypertension goal BP (blood pressure) < 130/80 Take 1 Tablet by mouth daily. 90 Tablet 3 12/17/19 24 Suspended Additional Information Patient taking differently:5 mg OralDaily(AM), Reported on 08/02/2024 hydroCHLOROthiazi de 25 MG Oral Tablet (Hydrodiuril)Yuli cations:Leg swelling,HTN, goal below 140/90 Take 1 Tablet by mouth in the morning. 90 Tablet 06/22/20 24 Suspended Hyoscyamine Sulfate 0.125 MG Sublingual Tablet Sublingual (Levsin) Take 1 Tablet by mouth 3 times a day as needed for Cramping. 30 Tablet 3 06/29/20 24 Suspended Ondansetron HCl 4 MG Oral Tablet Take 1 Tablet by mouth every 8 hours as needed for Nausea. 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 documented in this encounter Plan of Treatment Upcoming Encounters Date Type Department Care Team (Late st Contact Info) Description 10/13/2024 10:00 AM EST Office Visit Rheumatology [address] [place] [phone] Leidy Nunn CRNP [address] [facility] [place], [place] [address] 11/09/2024 10:30 AM EDT Office Visit Gastroenterology, [facility] [address] [facility] [place] [address] Anastasia Mendez CRNP [address] [place] [address] 12/20/2024 10:00 AM EDT Office [facility] [place] [address] Bruna Kaur MD [address] [facility] [place] [address] Scheduled Procedures Name Priority Associated Diagnoses Date/Ti sc ESOPHAGOGASTRODUODENOSCOPY ( EGD), FLEXIBLE, TRANSORAL, ENDOSCOPIC ULTRASOUND IPMN (intraductal papillary mucinous neoplasm) 08/02/2024 10:52 AM EST ESOPHAGOGASTRODUODENOSCOPY ( EGD), FLEXIBLE, TRANSORAL, DIAGNOSTIC IPMN (intraductal papillary mucinous neoplasm) 08/02/2024 10:52 AM EST COLONOSCOPY FLEXIBLE PROXIMA L DIAGNOSTIC Recall History of colonic polyps ESOPHAGOGASTRODUODENOSCOPY ( EGD), FLEXIBLE, TRANSORAL, DIAGNOSTIC Recall Cirrhosis (HCC) Portal hypertensive gastropathy (HCC) Esophageal varices (HCC) Gardner's esophagus Health Maintenance Due Date Last Done Comments HIV Screening 1977 Cologuard 2007 Sigmoidoscopy 2007 Zoster Vaccines (1 of 2) 2012 Fecal Occult Blood Test 08/10/2020 08/10/2019 Depression Screening 10/22/2023 10/21/2022 HbA1c 09/24/2024 09/24/2023, 10/0 12/2022, 11/03/2022, Additional history exists Mammogram 10/06/2024 10/06/2023, 12/2022, 08/19/2021, Additional history exists GFR 06/22/2025 06/22/2024, 04/2024, 05/20/2023, Additional history exists Albumin/Creatinine Ratio 09/24/2026 09/24/2023, 12/2022 Pneumococcal Vaccine: Pediatrics (0 to 5 Years) and At-Risk Patients (6 to 64 Years) (3 of 3 - PPSV23 or PCV20) 2027 02/23/2020, 07/10/2019 Lipid Panel 12/23/2027 12/22/2022, 10/14, 05/05/2021, Additional history exists Colonoscopy 11/16/2028 11/17/2023, 10/2023, 05/17/2013, Additional history exists Colorectal Cancer [...] this encounter Medical Devices Implanted Type Area Photo Mask Pattern Generator Device Identifier Shelf Expiration Date Model / Serial / Lot Hemostatic Clip Res 235cm - [id number] Implanted:Qty: 2 on 11/17/2023 by Zakia Mathur DO at ENDOSCOPY [facility] : ENDOSCOPY 04/12/2026 [id number] / / documented as of this encounter Care Teams Mailroom Clerk Relationship Specialty Start Date End Date Bruna Kaur MD [address] [place] [address] PCP - General Internal Medicine 06/03/21 documented as of this encounter
--- OUTSIDE RECORDS SUMMARY | 2024-10-09 19:52 | External Medical Summary | Summary of Care ---
Author Name Unknown Organization [facility] Address [address] [facility] [place] [address] Phone [phone] Care Team Providers Care Lead Pressman [employer] Printing Name Role Phone Bruna Kaur MD Primary Care Provider Reason for Visit * Reason Onset Date Comments Health Maintenance 08/15/2024 Encounter Details Date Type Department Care Team (Late st Contact Info) Description 08/15/2024 Telephone Family Practice [facility] [address] [place] [address] Bruna Kaur MD [address] [place] [address] Health Maintenance Allergies Active Allergy Reactions Criticality Noted Date Comments Sulfamethoxazole-Trimethopr im 08/07/2019 Naproxen Nausea/vomiting High 02/20/2002 Other reaction(s): nausea Naproxen Sodium Medium 12/21/2022 Sulfamethoxazole High 03/14/2020 Trimethoprim High 03/14/2020 documented as of this encounter (statuses as of 08/15/2024) Medications Acetaminophen Extra Strength 500 MG Oral [...] as of this encounter (statuses as of 08/15/2024) Active Problems Problem Noted Date Diagnosed Date [...] as of this encounter (statuses as of 08/15/2024) Resolved Problems Problem Noted Date Diagnosed Date [...] as of this encounter (statuses as of 08/15/2024) Immunizations Name Administration Dates Next Due COVID-19 [...] 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 Not on file Not on file documented as of this encounter Miscellaneous Notes * Telephone Encounter - Oksana Gomes LPN - 08/15/2024 8:44 AM EST Care Gaps Comprehensive Care Outreach Last Office/Telemedicine Visit: 06/22/2024 (in office), Visit date not found (telemedicine) Next Office Visit: 12/20/2024 Hemoglobin AIC Results: Lab Results Component Value Date/Time HEMOGLOBIN A1C - [facility] 6.3 (H) 07/14/2021 08:59 AM HEMOGLOBIN A1C - [facility] 5.6 02/23/2020 01:11 PM HEMOGLOBIN A1C - [facility] 5.8 (H) 01/20/2019 07:46 AM HEMOGLOBIN A1C - [facility] 5.9 08/27/2017 08:27 AM BP Readings from Last 1 Encounters: 08/02/24 141/58 Reviewed Health Maintenance below: Health Maintenance Topic Date Due HIV Screening Never done Zoster Vaccines (1 of 2) Never done Depression Screening 10/22/2023 HbA1c 09/24/2024 Mammogram 10/06/2024 Lab sep already ordered Mamm oct 06 Care Gap Outreach Action Taken: [employer] message sent documented in this encounter Plan of Treatment Upcoming Encounters Date Type Department Care Team (Latest Contact Info) Description 10/13/2024 9:30 AM EST Hospital Encounter ENDO OSS, Endoscopy Room [facility] [address] [place] [phone] Bridger Harris MD [address] [place] [address] 10/13/2024 9:30 AM EST - 10/13/2024 10:00 AM EST Surgery ENDO [facility], Endoscopy Room [facility] [address] [place] [phone] Bridger Harris MD [address] [place] [address] ESOPHAGOGASTRODUODENOSCOPY (EGD), FLEXIBLE, TRANSORAL, DIAGNOSTIC 10/13/2024 10:00 AM EST Office Visit Rheumatology [address] [place] [phone] Leidy Nunn CRNP [address] [place] [address] [place] [address] 11/09/2024 10:30 AM EDT Office Visit Gastroenterology , [facility] [address] [place] [address] Anastasia Mendez CRNP [address] [place] [address] 12/20/2024 10:00 AM EDT Office Visit [facility] [address] [place] [address] Bruna Kaur MD [address] [place] [address] Scheduled Procedures Name Priority Associated Diagnoses Date/Ti [...] 10/06/2024 10/06/2023, 12/2022, 08/19/2021, Additional history exists Pneumococcal Vaccine: 50+ Years (3 of 3 - PCV20 or PCV21) 02/22/2025 02/23/2020, 07/10/2019 GFR 06/22/2025 06/22/2024, 04/2024, 05/20/2023, Additional history exists Albumin/Creatinine Ratio 09/24/2026 09/24/2023, 12/2022 Lipid Panel 12/23/2027 12/22/2022, 10/14, 05/05/2021, Additional [...] this encounter Medical Devices Implanted Type Area Buffing And Polishing Wheel Repairer Device Identifier Shelf Expiration Date Model / Serial / Lot Hemostatic Clip Res 235cm - [id number] Implanted:Qty: 2 on 11/17/2023 by Zakia Mathur DO at ENDOSCOPY [facility] : ENDOSCOPY 04/12/2026 [id number] / / documented as of this encounter Care Teams Lead Pressman [employer] Printing Relationship Specialty Start Date End Date Bruna Kaur MD [address] [place] [address] PCP - General Internal Medicine 06/03/21 documented as of this encounter
--- OUTSIDE RECORDS SUMMARY | 2024-10-09 19:52 | External Medical Summary | Summary of Care ---
Author Name Unknown Organization [facility] Address [address] [facility] [place] [address] Phone [phone] Care Team Providers Care Retail Field Representative Name Role Phone Bruna Kaur MD Primary Care Provider Reason for Visit * Reason Comments Acute Encounter Details Date Type Department Care Team (Late st Contact Info) Description 09/22/2024 10:40 AM EST Office Visit Family Medicine [address] [place] [phone] Hannah Agustin PA-C [address] [place] [address] [place] [id number] Acute cough* Allergies Active Allergy Reactions Criticality Noted Date Comments Sulfamethoxazole-Trimethopr im 08/07/2019 Naproxen Nausea/vomiting High 02/20/2002 Other reaction(s): nausea Naproxen Sodium Medium 12/21/2022 Sulfamethoxazole High 03/14/2020 Trimethoprim High 03/14/2020 documented as of this encounter (statuses as of 09/22/2024) Medications Acetaminophen Extra Strength 500 MG Oral [...] Patient taking differently:5 mg OralDaily(AM), Reported on 09/22/2024 hydroCHLOROthiazi de 25 MG Oral Tablet (Hydrodiuril)Yuli [...] for Nausea. 30 Tablet 1 4 Active Pantoprazole Sodium 40 MG Oral Tablet Delayed Release (Protonix) Take 1 Tablet by mouth in the morning and 1 Tablet before bedtime. 180 Tablet 4 025 Active Doxycycline Hyclate 100 MG Oral CapsuleIndication s:Acute cough Take 1 Capsule by mouth in the morning and 1 Capsule before bedtime. Do all this for 10 days. Until gone.. 20 Capsule 5 025 Active predniSONE 20 MG Oral Tablet (Deltasone)Indica tions:Acute cough Take 2 Tablets by mouth in the morning for 5 days. 10 Tablet 5 025 Active documented as of this encounter (statuses as of 09/22/2024) Active Problems Problem Noted Date Diagnosed Date [...] as of this encounter (statuses as of 09/22/2024) Resolved Problems Problem Noted Date Diagnosed Date Resolved Date Pyogenic arthritis of left hip 11/06/2022 11/26/2023 Prediabetes 09/28/2017 11/28/2020 Overview: Per Prediabetes protocol #1 Calculus of ureter 06/28/2014 4 Overview (06/28/2014): Right upper ureter- 8 x 8 mm. Acute appendicitis 12/28/2012 7 Sacroiliac joint pain 03/11/20122018 Dyslipidemia, goal to be determined 07/23/2009 03/11/2012 Overview (07/23/2009): Per Lipid Taxonomy. Mixed dyslipidemia 08/24/2008 Overview (07/23/2009): Per Lipid Taxonomy. Major depressive disorder 08/24/2008 Overview (06/08/2017): ICD-10 update of inactive term ADVANCE DIRECTIVE INFORMATION 07/27/2006 06/19/2024 Overview (07/27/2006): No, Advance Directive brochure given to patient. 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 Not on file [employer] Not on file Not on file Not on file documented as of this encounter Last Filed Vital Signs Vital Sign Reading Time Taken Comments Blood Pressure 96/60 09/22/2024 10:23 AM EST Pulse 90 09/22/2024 10:23 AM EST Temperature 36.3 C (97.3 F) 09/22/2024 10:[address] Respiratory Rate 16 09/22/2024 10:23 AM EST Oxygen Saturation 98% 09/22/2024 10:23 AM EST Inhaled Oxygen Concentration - - Weight - - Height - - Body Mass Index - - documented in this encounter Progress Notes * Hannah Agustin PA-C - 09/22/2024 10:30 AM EST Nursing Notes: Judy Gibbons, CASUAL SHOE INSPECTOR 09/22/24 1024 Sign at exiting of workspace No better from 08/29 visit Still coughing, still has runny nose, feels SOB Getting worse Does not have a lot of energy - doesn't want to get out of bed Pt here today with ongoing cough, chest congestion, slight SOB, fatigue for the past few weeks. Pt was seen about 2 weeks ago. Given augmentin. This didn't help. Pt denies fever, chills. Has some mild nasal/head congestion. BP a little on the low side today. Review of patient's allergies indicates: Allergen Reactions Naproxen Nausea/vomiting Other reaction(s): nausea Sulfamethoxazole Trimethoprim Naproxen Sodium Bactrim [Sulfamethoxazole-Trimethoprim] Current Outpatient Medications Medication Sig Dispense Refill tiZANidine HCl 4 MG Oral Tablet (Zanaflex) Take 1 Tablet by mouth every 8 hours as needed for Muscle spasms. 30 Tablet 1 Zoster Vac Recomb Adjuvanted 50 MCG/0.5ML Intramuscular Suspension Reconstituted (Shingrix) Inject 0.5 mL into a large muscle now and repeat dose in 60 to 180 days 1 Each 1 Multivitamin Women 50+ Oral Tablet Take by mouth daily. Aspirin 81 MG Oral Tablet Delayed Release Take 1 Tablet by mouth at bedtime. Atorvastatin Calcium 20 MG Oral Tablet (Lipitor) Take 1 Tablet by mouth in the morning. In the morning.. 90 Tablet 3 Losartan Potassium 100 MG Oral Tablet (Cozaar) Take 1 Tablet by mouth in the morning. 90 Tablet 3 amLODIPine Besylate 5 MG Oral Tablet (Norvasc) Take 1 Tablet by mouth daily. (Patient taking differently: Take 1 Tablet by mouth in the morning.) 90 Tablet 3 hydroCHLOROthiazide 25 MG Oral Tablet (Hydrodiuril) Take 1 Tablet by mouth in the morning. 90 Tablet 0 Hyoscyamine Sulfate 0.125 MG Sublingual Tablet Sublingual (Levsin) Take 1 Tablet by mouth 3 times aday as needed for Cramping. 30 Tablet 3 Ondansetron HCl 4 MG Oral Tablet Take 1 Tablet by mouth every 8 hours as needed for Nausea. 30 Tablet 1 Pantoprazole Sodium 40 MG Oral Tablet Delayed Release (Protonix) Take 1 Tablet by mouth in the morning and 1 Tablet before bedtime. 180 Tablet 0 Acetaminophen Extra Strength 500 MG Oral Tablet (Patient not taking: Reported on 07/28/2024) Famotidine 20 MG Oral Tablet (Pepcid) (Patient not taking: Reported on 07/28/2024) No current facility-administered medications for this visit. Past Medical History: Diagnosis Date DDD (degenerative disc disease), cervical Dyslipidemia, goal to be determined 07/23/2009 Per Lipid Taxonomy. Endometriosis HTN, goal below 140/90 12/26/2010 Nephrolithiasis x 2 OA (osteoarthritis) of knee bilateral Pancreatic cyst 10/13/2021 6 mm, seen on endoscopic ultrasound 09/2021. Repeat MRI in 2 years for surveillance. 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 [employer] Employer: [employer] 248 Tobacco Use Smoking status: Former Current packs/day: 0.00 Types: Cigarettes Quit date: 08/24/1982 Years since quittin.1 Smokeless tobacco: Never Tobacco comments: Pt was just a social smoker Vaping Use Vaping status: Never Used Substance and Sexual Activity Alcohol use: Not Currently Comment: none since 2019 Drug use: No Sexual activity: Yes Partners: Male Other Topics Concern Service Not Asked Blood Transfusions Not Asked Caffeine Concern Not Asked Occupational Exposure Not Asked Hobby Hazards Not Asked Sleep Concern Not Asked Stress Concern Not Asked Weight Concern Not Asked Special Diet Not Asked Back Care Not Asked Exercise Not Asked Bike Helmet Not Asked Seat Belt Yes Self-Exams Not Asked Social History Narrative Not on file Social Needs Financial Resource Strain: Not on file Food Insecurity: Food Insecurity Present (10/21/2022) Hunger Vital Sign Worried About Running Out of Food in the Last Year: Never true Ran Out of Food in the Last Year: Sometimes true Transportation Needs: Not on file Social Connections: Not on file Housing Stability: Not on file O:Blood pressure 96/60, pulse 90, temperature 97.3 F (36.3 C), resp. rate 16, SpO2 98%. GENERAL: alert, healthy, and no distress NECK: supple, no adenopathy EYES: conjunctiva are pink and non-injected, sclera clear EARS: External ears normal, Canals clear, TM's Normal HEART: regular rate & rhythm, no murmur, and no gallops LUNGS: chest symmetric with normal AP diameter, no chest deformities noted, no chest wall tenderness, lungs clear to auscultation A:Acute cough (Primary) - CBC WITH WBC DIFFERENTIAL AND ANEMIA REFLEX WORKUP; Future; Expected date: 09/22/2024 - BASIC METABOLIC PANEL; Future; Expected date: 09/22/2024 - XR CHEST 2 VIEWS - Doxycycline Hyclate 100 MG Oral Capsule; Take 1 Capsule by mouth in the morning and 1 Capsule before bedtime. Do all this for 10 days. Until gone.. - predniSONE 20 MG Oral Tablet (Deltasone); Take 2 Tablets by mouth in the morning for 5 days. Will check some labs. Will xray chest. Start above meds. Any questions/problems, please call. If anything changes, worsens, develops new sx, please call PAM. May need to hold one of her BP meds. Will wait for labs and go from there. Follow Up: Return if symptoms worsen or fail to improve. Hannah Agustin PA-C documented in this encounter Nursing Notes * Judy Gibbons LPN - 09/22/2024 10:23 AM EST No better from 08/29 visit Still coughing, still has runny nose, feels SOB Getting worse Does not have a lot of energy - doesn't want to get out of bed documented in this encounter Plan of Treatment Upcoming Encounters Date Type Department Care Team (Latest Contact Info) Description 10/10/2024 1:30 PM EST Imaging Radiology [address] [place] [address] 10/13/2024 9:30 AM EST Hospital Encounter ENDO [facility], Endoscopy Room [facility] [address] [place] [phone] Bridger Harris MD [address] [place] [address] 10/13/2024 9:30 AM EST - 10/13/2024 10:00 AM EST Surgery ENDO [facility], Endoscopy Room [facility] [address] [place] [phone] Bridger Harris MD [address] [place] [address] ESOPHAGOGASTRODUODENOSCOPY (EGD), FLEXIBLE, TRANSORAL, DIAGNOSTIC 10/13/2024 10:00 AM EST Office Visit Rheumatology [address] [place] [phone] Leidy Nunn CRNP [address] [place] [address] [place], [place] [address] 11/09/2024 10:30 AM EDT Office Visit Gastroenterology , [facility] [address] [place] [address] Anastasia Mendez CRNP [address] [place] [address] 12/20/2024 10:00 AM EDT Office Visit Family Practice [facility] [address] [place] [address] Bruna Kaur MD [address] [place] [address] Pending Results Name Type Priority Associated Diagnoses Date /Time XR CHEST 2 VIEWS Medical Imaging Routine Acute cough 09/22/2024 10:46 AM EST Scheduled Orders Name Type Priority Associated Diagnoses Orde r Schedule CBC WITH WBC DIFFERENTIAL AND ANEMIA REFLEX WORKUP Lab Routine Acute cough Expected: 09/22/2024 (Approximate), Expires: 09/22/2025 BASIC METABOLIC PANEL Lab Routine Acute cough Expected: 09/22/2024 (Approximate), Expires: 09/22/2025 Scheduled Procedures Name Priority Associated Diagnoses Date/Ti [...] 10/06/2023, 0 12/2022, 08/19/2021, Additional history exists Pneumococcal Vaccine: 50+ Years (3 of 3 - PCV20 or PCV21) 02/22/2025 02/23/2020, 07/10/2019 GFR 06/22/2025 06/22/2024, 0 04/2024, 05/20/2023, Additional [...] this encounter Medical Devices Implanted Type Area Specialty Transformer Assembler Device Identifier Shelf Expiration Date Model / Serial / Lot Hemostatic Clip Res 235cm - [id number] Implanted:Qty: 2 on 11/17/2023 by Zakia Mathur DO at ENDOSCOPY [facility] : ENDOSCOPY 04/12/2026 [id number] / / documented as of this encounter Visit Diagnoses Diagnosis Acute cough- Primary Screening mammogram for breast cancer Varices of esophagus determined by endoscopy (HCC) documented in this encounter Care Teams Retail Field Representative Relationship Specialty Start Date End Date Bruna Kaur MD [address] [place] [address] PCP - General Internal Medicine 06/03/21 documented as of this encounter
--- OUTSIDE RECORDS SUMMARY | 2024-10-09 19:52 | External Medical Summary | Summary of Care ---
Author Name Unknown Organization [facility] Address [address] [facility] [address] Phone [phone] Care Team Providers Care Dough Molder Name Role Phone Bruna Kaur MD Primary Care Provider Reason for Visit * Reason Comments Acute Encounter Details Date Type Department Care Team (Late st Contact Info) Description 08/29/2024 8:00 AM EST Office Visit Family Medicine [address] [place] [phone] Hannah Agustin PA-C [address] [place] [address] [place] [id number] Bronchitis, complicated* Allergies Active Allergy Reactions Criticality Noted Date Comments Sulfamethoxazole-Trimethopr im 08/07/2019 Naproxen Nausea/vomiting High 02/20/2002 Other reaction(s): nausea Naproxen Sodium Medium 12/21/2022 Sulfamethoxazole High 03/14/2020 Trimethoprim High 03/14/2020 documented as of this encounter (statuses as of 08/29/2024) Medications Acetaminophen Extra Strength 500 MG Oral [...] Nausea. 30 Tablet 1 06/29/20 24 Active Pantoprazole Sodium 40 MG Oral Tablet Delayed Release (Protonix) Take 1 Tablet by mouth in the morning and 1 Tablet before bedtime. 180 Tablet 08/02/20 24 025 Active Amoxicillin-Pot Clavulanate 875-125 MG Oral Tablet (Augmentin)Indica tions:Bronchitis, complicated Take 1 Tablet by mouth in the morning and 1 Tablet before bedtime. Do all this for 10 days. 20 Tablet 08/29/19 25 025 Active Omeprazole 20 MG Oral Capsule Delayed Release (PriLOSEC)Indicat ions:Gastroesopha geal reflux disease with esophagitis without hemorrhage TAKE 1 CAPSULE BY MOUTH EVERY MORNING 90 Capsule 1 07/31/20 24 025 Discontin ued(Patie nt preferenc e/discont inuation) Sucralfate 1 GM Oral Tablet (Carafate) Take 1 Tablet by mouth in the morning and 1 Tablet before bedtime. Do all this for 14 days. Crush and mix with water. 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 Not on file Not on file documented as of this encounter Last Filed Vital Signs Vital Sign Reading Time Taken Comments Blood Pressure 122/70 08/29/2024 7:49 AM EST Pulse 68 08/29/2024 7:49 AM EST Temperature 36.2 C (97.1 F) 08/29/2024 7:49 AM ES T Respiratory Rate 16 08/29/2024 7:49 AM EST Oxygen Saturation 98% 08/29/2024 7:49 AM EST Inhaled Oxygen Concentration - - Weight 69.9 kg (154 lb) 08/29/2024 7:49 AM EST Height - - Body Mass Index 24.87 08/02/2024 10:29 AM EST documented in this encounter Progress Notes * Hannah Agustin PA-C - 08/29/2024 7:55 AM EST Nursing Notes: Kylah Mireles RN 08/29/24 0754 Sign at exiting of workspace Acute visit. Cough, head congestion,Pt has sinus pressure, could not smell or taste for 1 day started last Wednesday has used Corricidin for this Pt here today with cough, chest congestion, sputum production, nasal/head congestion, colored nasaldrainage for the past week. Pt denies fever, chills, nausea, vomiting, diarrhea, chest pain, SOB. Pt has been taking some OTC meds with little relief. Pt hasn't been around anyone who has been sick. Review of patient's allergies indicates: Allergen Reactions Naproxen Nausea/vomiting Other reaction(s): nausea Sulfamethoxazole Trimethoprim Naproxen Sodium Bactrim [Sulfamethoxazole-Trimethoprim] Current Outpatient Medications Medication Sig Dispense Refill Acetaminophen Extra Strength 500 MG Oral Tablet (Patient not taking: Reported on 07/28/2024) tiZANidine HCl 4 MG Oral Tablet (Zanaflex) Take 1 Tablet by mouth every 8 hours as needed for Muscle spasms. 30 Tablet 1 Zoster Vac Recomb Adjuvanted 50 MCG/0.5ML Intramuscular Suspension Reconstituted (Shingrix) Inject 0.5 mL into a large muscle now and repeat dose in 60 to 180 days 1 Each 1 Famotidine 20 MG Oral Tablet (Pepcid) (Patient not taking: Reported on 07/28/2024) Multivitamin Women 50+ Oral Tablet Take by [...] 1 Tablet before bedtime. 180 Tablet 0 No current facility-administered medications for this visit. 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 rate 16, weight 154 lb (69.9 kg), SpO2 98%. GENERAL: alert and no distress NECK: supple, no adenopathy EYES: PERRLA, conjunctiva are pink and non-injected, sclera clear EARS: External ears normal, Canals clear, TM's Normal NOSE: no mucosal erythema, no mucosal edema, no purulent discharge OROPHARYNX: no exudate, no erythema, lips, buccal mucosa, and tongue normal, and mucous membranes are moist HEART: regular rate & rhythm, no murmur, and no gallops LUNGS: chest symmetric with normal AP diameter, no chest deformities noted, no chest wall tenderness, lungs clear to auscultation A:Bronchitis, complicated (Primary) - Amoxicillin-Pot Clavulanate 875-125 MG Oral Tablet (Augmentin); Take 1 Tablet by mouth in the morning and 1 Tablet before bedtime. Do all this for 10 days. Start above med. Rest, fluids. Any questions/problems, please call. If anything changes, worsens, develops new sx, please call PAM. Follow Up: Return if symptoms worsen or fail to improve. Hannah Agustin PA-C documented in this encounter Nursing Notes * Kylah Mireles RN - 08/29/2024 7:52 AM EST Acute visit. Cough, head congestion,Pt has sinus pressure, could not smell or taste for 1 day started last Wednesday has used Corricidin for this documented in this encounter Plan of Treatment Upcoming Encounters Date Type Department Care Team (Latest Contact Info) Description 10/13/2024 9:30 AM EST Hospital Encounter ENDO [facility], Endoscopy Room [facility] [address] [place] [phone] Bridger Harris MD [address] [place] [address] 10/13/2024 9:30 AM EST - 10/13/2024 10:00 AM EST Surgery ENDO [facility], Endoscopy Room [facility] [address] [place] [phone] Bridger Harris MD [address] [place] [address] ESOPHAGOGASTRODUODENOSCOPY (EGD), FLEXIBLE, TRANSORAL, DIAGNOSTIC 10/13/2024 10:00 AM EST Office Visit [address] [place] [phone] Leidy Nunn CRNP [address] [place] [address] [place], [place] [address] 11/09/2024 10:30 AM EDT Office Visit Gastroenterology , [facility] [address] [place] [address] Anastasia Mendez CRNP [address] [place] [address] 12/20/2024 10:00 AM EDT Office Visit Family Practice [facility] [address] [place] [address] Bruna Kaur MD [address] [place] [address] Scheduled Procedures Name Priority Associated Diagnoses Date/Ti [...] this encounter Medical Devices Implanted Type Area Warehousing Technician Device Identifier Shelf Expiration Date Model / Serial / Lot Hemostatic Clip Res 235cm - [id number] Implanted:Qty: 2 on 11/17/2023 by Zakia Mathur DO at ENDOSCOPY [facility] : ENDOSCOPY 04/12/2026 [id number] / / documented as of this encounter Visit Diagnoses Diagnosis Bronchitis, complicated- Primary Bronchitis, not specified as acute or chronic 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
--- OUTSIDE RECORDS SUMMARY | 2024-10-09 19:52 | External Medical Summary | Summary of Care ---
Author Name Unknown Organization [facility] Address [address] [facility] [place] [address] Phone [phone] Care Team Providers Care Tactical Air Control Party Manager Name Role Phone Bruna Kaur MD Primary Care Provider Reason for Visit * Reason Onset Date Comments Medication Refill 08/02/2024 Encounter Details Date Type Department Care Team (Late st Contact Info) Description 08/02/2024 Refill Gastroenterology, [facility] [address] [place] [address] Sunni Barrios MD [address] [place] [address] Allergies Active Allergy Reactions Criticality Noted Date [...] 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 documented in this encounter Plan of Treatment Upcoming Encounters Date Type Department Care Team (Latest Contact Info) Description 10/13/2024 9:30 AM EST Hospital Encounter ENDO [facility], Endoscopy Room [facility] [address] [place] [phone] Bridger Harris MD [address] [place] [address] 10/13/2024 9:30 AM EST - 10/13/2024 10:00 AM EST Surgery ENDO [facility], Endoscopy Room [facility] [address] [place] [phone] Bridger Harris MD [address] [place] [address] ESOPHAGOGASTRODUODENOSCOPY (EGD), FLEXIBLE, TRANSORAL, DIAGNOSTIC 10/13/2024 10:00 AM EST Office Visit [address] [place] [phone] Leidy Nunn CRNP [address] [place] [address] [place], [place] [address] 11/09/2024 10:30 AM EDT Office Visit Gastroenterology , [facility] [address] [place] [address] Anastasia Mendez CRNP [address] [place] [address] 12/20/2024 10:00 AM EDT Office Visit Family Practice [facility] [address] [place] [address] Bruna Kaur MD [address] [place] [address] Scheduled Procedures Name Priority Associated Diagnoses Date/Ti [...] this encounter Medical Devices Implanted Type Area Graphic Technician Device Identifier Shelf Expiration Date Model / Serial / Lot Hemostatic Clip Res 235cm - [id number] Implanted:Qty: 2 on 11/17/2023 by Zakia Mathur DO at ENDOSCOPY [facility] : ENDOSCOPY 04/12/2026 [id number] / / documented as of this encounter Care Teams Tactical Air Control Party Manager Relationship Specialty Start Date End Date Bruna Kaur MD [address] [place] [address] PCP - General Internal Medicine 06/03/21 documented as of this encounter
--- OUTSIDE RECORDS SUMMARY | 2024-10-09 19:52 | External Medical Summary | Summary of Care ---
Author Name Unknown Organization [facility] Address [address] [place] [address] Phone [phone] Care Team Providers Care Package Center Supervisor Name Role Phone Bruna Kaur MD Primary Care Provider Reason for Referral * Evaluate & Treat - Unlimited Visits (Within 10 days (routine)) - Authorized Specialty Diagnoses / Procedures Referred By Kathy del rosario Referred To Contact Pain Management / Pain Medicine Diagnoses DDD (degenerative disc disease), cervical Christian Santana PA-C [address] [facility] [place] [address] Phone: tel: fax: Referral ID Status Reason Start Date Expiration Date Visits Requested Visits Authorized [id number] Authorized Specialty Services Required 06/19/[id number] Question Answer Referral Priority Within 10 days (routine) Where should this appointment be scheduled? [facility] Reason for referral? Interventional Pain Management - (Injection) What condition is the patient being referred for? Cervical Radiculopathy What is the preferred location to have this test performed? [facility] Patient Name: Kailyn Melton Date of : 1960 Department Phone Number: MRI or CT (if unable to have a MRI) is recommended if any of the following apply: 1. Patient has neck or back pain with radiation to extremities. A previous MRI will be accepted if symptoms unchanged since prior MRI. 2. Spinal surgery since last MRI. If yes, order a MRI with and without contrast. 3. Hx or ongoing cancer treatment. Patient will need spine x-ray (Ap/Lat) for axial neck or back pain if not done previously. Fax No. [facility] [phone] or contact front end drupal developer [phone] Fax No. [facility] [phone] or contact front end drupal developer [phone] Fax No. [facility] [phone] or contact front end drupal developer [phone] Reason for Visit * Reason Onset Date Comments Advice 06/19/2024 Pt calling to in form Christian that she had shots in both shoulders on 05.12.24 and they are not working out. She has pain in both arms. She is needing your advice. Pt can be reached at [phone]. Thank-you! Encounter Details Date Type Department Care Team (Late st Contact Info) Description 06/19/2024 Telephone Rheumatology [facility] Spears [address] [facility] [place] [address] Christian Santana PA-C [address] [place] [address] Advice (Pt calling to inform Christian that sh... Allergies Active Allergy Reactions Criticality Noted Date Comments Sulfamethoxazole-Trimethopr im 08/07/2019 Naproxen Nausea/vomiting High 02/20/2002 Other reaction(s): nausea Naproxen Sodium Medium 12/21/2022 Sulfamethoxazole High 03/14/2020 Trimethoprim High 03/14/2020 documented as of this encounter (statuses as of 09/19/2024) Medications Acetaminophen Extra Strength 500 MG Oral Tablet 022 Active tiZANidine HCl 4 MG Oral Tablet (Zanaflex)Indica tions:Spasm of muscle Take 1 Tablet by mouth every 8 hours as needed for Muscle spasms. 30 Tablet 1 023 Active Zoster Vac Recomb Adjuvanted 50 MCG/0.5ML Intramuscular Suspension Reconstituted (Shingrix)Indica tions:Need for zoster vaccination Inject 0.5 mL into a large muscle now and repeat dose in 60 to 180 days 1 Each 1 023 Active Famotidine 20 MG Oral Tablet (Pepcid) Active Multivitamin Women 50+ Oral Tablet Take by mouth daily. Active Aspirin 81 MG Oral Tablet Delayed Release Take 1 Tablet by mouth at bedtime. Active Atorvastatin Calcium 20 MG Oral Tablet (Lipitor)Indicat ions:Dyslipidemi a, goal LDL below 100 Take 1 Tablet by mouth in the morning. In the morning.. 90 Tablet 3 024 Active Losartan Potassium 100 MG Oral Tablet (Cozaar)Indicati ons:Hypertension goal BP (blood pressure) < 130/80 Take 1 Tablet by mouth in the morning. 90 Tablet 3 024 Active amLODIPine Besylate 5 MG Oral Tablet (Norvasc)Indicat ions:Hypertensio n goal BP (blood pressure) < 130/80 Take 1 Tablet by mouth daily. 90 Tablet 3 024 Active Additional Information Patient taking differently:5 mg OralDaily(AM), Reported on 08/02/2024 hydroCHLOROthiaz kellen 25 MG Oral Tablet (Hydrodiuril)Ind ications:Leg swelling,HTN, goal below 140/90 Take 1 Tablet by mouth in the morning. 90 Tablet 023 2023 Discontinued(R efill) Dicyclomine HCl 10 MG Oral Capsule (Bentyl) Take 1 Capsule by mouth 2 times a day as needed for Cramping. 180 Capsule 4 023 2023 Discontinued Omeprazole 20 MG Oral Capsule Delayed Release (PriLOSEC)Indica tions:Gastroesop hageal reflux disease with esophagitis without hemorrhage TAKE 1 CAPSULE BY MOUTH EVERY MORNING 30 Capsule 5 024 2023 Discontinued documented as of this encounter (statuses as of 09/19/2024) Active Problems Problem Noted Date Diagnosed Date [...] as of this encounter (statuses as of 09/19/2024) Resolved Problems Problem Noted Date Diagnosed Date [...] as of this encounter (statuses as of 09/19/2024) Immunizations Name Administration Dates Next Due COVID-19 [...] Influenza, Quadriva lent, No Preserve, IM 05/14/2020 TD - Tetanus/Diptheria (ADULT) 05/16/2004 TDAP (age [...] 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 * Telephone Encounter - Christian Santana PA-C - 06/19/2024 12:23 PM EST Injections did not help and suspected cervical source based on symptoms. Recommend pain medicine. She has occipital nerve block and trigger point injections previously that helped. Please assist with scheduling appt * Telephone Encounter - Farhana Clemente OSA - 06/19/2024 10:58 AM EST Pt calling to inform Christian that she had shots in both shoulders on 05.12.24 and they are not working out. She has pain in both arms. She is needing your advice. Pt can be reached at [phone]. Thank-you! Farhana documented in this encounter Plan of Treatment Upcoming Encounters Date Type Department Care Team (Latest Contact Info) Description 10/10/2024 1:30 PM EST Imaging Radiology [address] [place] [address] 10/13/2024 9:30 AM EST Hospital Encounter ENDO OSS, Endoscopy Room [facility] [address] [place] [id number] Bridger Harris MD [address] [place] [address] 10/13/2024 9:30 AM EST - 10/13/2024 10:00 AM EST Surgery ENDO OSS, Endoscopy Room [facility] [address] [place] [phone] Bridger Harris MD [address] [place] [address] ESOPHAGOGASTRODUODENOSCOPY (EGD), FLEXIBLE, TRANSORAL, DIAGNOSTIC 10/13/2024 10:00 AM EST Office Visit Rheumatology [address] [place] [phone] Leidy Nunn CRNP [address] [facility] [place], [place] [address] 11/09/2024 10:30 AM EDT Office Visit Gastroenterology , [facility] [address] [place] [address] Anastasia Mendez CRNP [address] [place] [address] 12/20/2024 10:00 AM EDT Office Visit Family Practice [facility] [address] [place] [address] Bruna Kaur MD [address] [place] [id number] Scheduled Procedures Name Priority Associated Diagnoses Date/Ti me ESOPHAGOGASTRODUODENOSCOPY ( EGD), FLEXIBLE, TRANSORAL, DIAGNOSTIC Varices of esophagus determined by endoscopy (HCC) 10/13/2024 9:30 AM EST COLONOSCOPY FLEXIBLE PROXIMA L DIAGNOSTIC Recall History of colonic polyps ESOPHAGOGASTRODUODENOSCOPY ( EGD), FLEXIBLE, TRANSORAL, DIAGNOSTIC Recall Cirrhosis (HCC) Portal hypertensive gastropathy (HCC) Esophageal varices (HCC) Gardner's esophagus Scheduled Referrals Name Type Priority Associated Diagnoses Orde r Schedule PAIN MEDICINE REFERRAL OP Referral Within 10 days (routine) DDD (degenerative disc disease), cervical Ordered: 06/19/2024 Health Maintenance Due Date Last Done Comments [...] this encounter Medical Devices Implanted Type Area Academic Manager Device Identifier Shelf Expiration Date Model / Serial / Lot Hemostatic Clip Res 235cm - [id number] Implanted:Qty: 2 on 11/17/2023 by Zakia Mathur DO at ENDOSCOPY [facility] : ENDOSCOPY 04/12/2026 [id number] / / documented as of this encounter Visit Diagnoses Diagnosis DDD (degenerative disc disease), cervical- Primary Degeneration of cervical intervertebral disc Screening mammogram for breast cancer Varices of esophagus determined by endoscopy (HCC) documented in this encounter Care Teams Package Center Supervisor Relationship Specialty Start Date End Date Bruna Kaur MD [address] [facility] [place] [address] PCP - General Internal Medicine 06/03/21 documented as of this encounter
--- OUTSIDE RECORDS SUMMARY | 2024-10-09 19:52 | External Medical Summary | Summary of Care ---
Author Name Unknown Organization [facility] Address [address] [place] [address] Phone [phone] Care Team Providers Care Leasing Professional Name Role Phone Bruna Kaur MD Primary Care Provider Reason for Visit * Auth/Cert Specialty Diagnoses / Procedures Referred By Contac t Referred To Contact Diagnoses IPMN (intraductal papillary mucinous neoplasm) IPMN (intraductal papillary mucinous neoplasm) [D49.0] Procedures EGD, FLEXIBLE, DIAGNOSTIC EGD, W/ENDOSCOPIC US ESOPHAGOGASTRODUODENOSCOPY (EGD), FLEXIBLE, TRANSORAL, DIAGNOSTIC ESOPHAGOGASTRODUODENOSCOPY (EGD), FLEXIBLE, TRANSORAL, ENDOSCOPIC ULTRASOUND Sunni Barrios MD [address] [address] Phone: tel: fax: [facility], Endoscopy Room [facility] [address] [address] Phone: tel: Referral ID Status Reason Start Date Expiration Date Visits Re quested Visits Authorized [id number] Encounter Details Date Type Department Care Team (Latest Contact Info) Description 08/02/2024 10:15 AM EST - 08/02/2024 12:53 PM [facility] Hospital Encounter [facility], Endoscopy Room [facility] [address] [phone] Sunni Barrios MD [address] [address] Various: UGI,UEUS Discharge Disposition: Home - Self Care Allergies Active Allergy Reactions Criticality Noted Date [...] deficiency 11/06/2022 Food insecurity 10/26/2022 Overview: Per [facility] Protocol Other cirrhosis of liver 05/29/2022 [...] 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 file Not on file Not on file [employer] Not on file Not on file Not on file documented as of this encounter Last Filed Vital Signs Vital Sign Reading Time Taken Comments Blood Pressure 141/58 08/02/2024 12:38 PM EST Pulse 67 08/02/2024 12:38 PM EST Temperature 36.2 C (97.2 F) 08/02/2024 12:[address] Respiratory Rate 16 08/02/2024 12:38 PM EST Oxygen Saturation 97% 08/02/2024 12:38 PM EST Inhaled Oxygen Concentration - - Weight 69.9 kg (154 lb) 08/02/2024 10:29 AM EST Height 167.6 cm (5' 5.98") 08/02/2024 10:[address] Body Mass Index 24.87 08/02/2024 10:29 AM EST documented in this encounter H&P Notes * Sunni Barrios MD - 08/02/2024 10:25 AM EST Endoscopy Pre-Procedure Assessment Name: Kailyn Melton Date: 08/02/2024 Time: 10:25 AM Procedure(s): Endoscopic Ultrasound; with Indication(s) of evaluation and management of pancreatic cysts Endoscopy Pre-Procedure Assessment: Prior to the procedure, the patient was identified. The patient's history, medications and allergies were reviewed as per the Anesthesia Assessment. The patient is competent. The risks and benefits of the proposed procedure and the planned sedation were discussed with the patient. All questions were answered and informed consent for the procedure was obtained. Ht 1.676 m (5' 6") | Wt 69.9 kg (154 lb) | BMI 24.86 kg/m | BSA 1.8 m Review of patient's allergies indicates: Allergen Reactions Naproxen Nausea/vomiting Other reaction(s): nausea Sulfamethoxazole Trimethoprim Naproxen Sodium Bactrim [Sulfamethoxazole-Trimethoprim] Prior to Admission medications Medication Sig Last Dose Discont. Hyoscyamine Sulfate 0.125 MG Sublingual Tablet Sublingual (Levsin) Take 1 Tablet by mouth 3 times aday as needed for Cramping. Past Week Ondansetron HCl 4 MG Oral Tablet Take 1 Tablet by mouth every 8 hours as needed for Nausea. 07/27/2024 hydroCHLOROthiazide 25 MG Oral Tablet (Hydrodiuril) Take 1 Tablet by mouth in the morning. 07/28/2024 Morning amLODIPine Besylate 5 MG Oral Tablet (Norvasc) Take 1 Tablet by mouth daily. Patient taking differently: Take 1 Tablet by mouth in the morning. 07/28/2024 Morning Atorvastatin Calcium 20 MG Oral Tablet (Lipitor) Take 1 Tablet by mouth in the morning. In the morning.. 07/28/2024 Morning Losartan Potassium 100 MG Oral Tablet (Cozaar) Take 1 Tablet by mouth in the morning. 07/28/2024 Morning Aspirin 81 MG Oral Tablet Delayed Release Take 1 Tablet by mouth at bedtime. 07/27/2024 Evening Multivitamin Women 50+ Oral Tablet Take by mouth daily. 07/28/2024 Morning Omeprazole 20 MG Oral Capsule Delayed Release (PriLOSEC) TAKE 1 CAPSULE BY MOUTH EVERY MORNING Famotidine 20 MG Oral Tablet (Pepcid) Not Taking tiZANidine HCl 4 MG Oral Tablet (Zanaflex) Take 1 Tablet by mouth every 8 hours as needed for Muscle spasms. Zoster Vac Recomb Adjuvanted 50 MCG/0.5ML Intramuscular Suspension Reconstituted (Shingrix) Inject 0.5 mL into a large muscle now and repeat dose in 60 to 180 days Acetaminophen Extra Strength 500 MG Oral Tablet Patient not taking: Reported on 07/28/2024 Not Taking Physical Exam: Mental Status Examination: alert and oriented. Airway Examination: normal oropharyngeal airway and neck mobility. Respiratory Examination: clear to auscultation. CV Examination: Regular rate and rythm, no murmurs. ASA Grade: II - A patient with mild systemic disease. After reviewing the risks and benefits, the patient was deemed in satisfactory condition to undergothe procedure. The anesthesia plan was to use sedation. Patient was explained in detail regarding risks, benefits, limitations and alternatives of the above endoscopic procedure. Risks of intravenous sedation used for procedure were also explained. Risks include, but not limited to perforation, bleeding, infection, respiratory distress, cardiac arrest and . Risk of acute pancreatitis and necrosis if ERCP is done. Patient is also aware about the possibility of missed lesion. Patient's questions were answered. The patient verbalized understandingthe information and agreed to undergo the procedure. Discussed with the patient that he/she is at an explicit higher risk for complications in comparison to other patients Sunni Barrios MD 08/02/2024 documented in this encounter Procedure Notes * Anastasia Mendez CRNP - 08/02/2024 11:19 AM ESTAssociated Order(s): UPPER ENDOSCOPIC U/S [facility] Patient Name: Kailyn Melton Procedure Date: 08/02/2024 11:19 AM Date of : 1960 Admit Type: Outpatient Note Status: Finalized Date of : 1960 Admit Type: Outpatient Age: 64 Room: Advanced Endo Gender: Female Note Status: Finalized Procedure: Upper EUS Indications: Pancreatic cyst on CT scan Providers: Sunni Barrios MD (Doctor), Mark Bermeo RN Referring MD: Anastasia Mendez NP (Referring MD), Bruna Kaur MD (Referring MD) Medicines: Propofol per Anesthesia Complications: No immediate complications. Procedure: Pre-Anesthesia Assessment: - Prior to the procedure, a History and Physical was performed, and patient medications, allergies and sensitivities were reviewed. The patient's tolerance of previous anesthesia was reviewed. - The risks and benefits of the procedure and the sedation options and risks were discussed with the patient. All questions were answered and informed consent was obtained. - Patient identification and proposed procedure were verified prior to the procedure by the physician and the nurse. The procedure was verified in the procedure room. - Pre-procedure physical examination revealed no contraindications to sedation. After obtaining informed consent, the endoscope was passed under direct vision. All instruments were visually inspected immediately before and after removal from the patient to ensure they are fully intact. Throughout the procedure, the patient's blood pressure, pulse, and oxygen saturations were monitored continuously. The Endoscope was introduced through the mouth, and advanced to the second part of duodenum. The upper EUS was accomplished without difficulty. The patient tolerated the procedure well. Findings & Specimens: ENDOSONOGRAPHIC FINDING: : There was no sign of significant endosonographic abnormality in the ampulla. No masses were identified. There was no sign of significant endosonographic abnormality in the common bile duct. The maximum diameter of the duct was 4 mm. There was diffuse abnormal echotexture in the visualized portion of the liver. This was characterized by a heterogenous appearance. There was no sign of significant endosonographic abnormality in the entire pancreas. The pancreatic duct measured up to 2 mm in diameter. An anechoic lesion suggestive of a cyst was identified in the uncinate process of the pancreas. The lesion measured 10 mm in maximal cross-sectional diameter. There was a single compartment without septae. The outer wall of the lesion was thin. There was no associated mass. There was no internal debris within the fluid-filled cavity.FNA not performed due to surrounding vascularity and CBD. An anechoic lesion suggestive of a cyst was identified in the pancreatic tail. The lesion measured 10 mm in maximal cross-sectional diameter. There was a single compartment without septae. The outer wall of the lesion was thin. There was no associated mass. There was no internal debris within the fluid-filled cavity. Diagnostic needle aspiration for fluid was performed. Color Doppler imaging was utilized prior to needle puncture to confirm a lack of significant vascular structures within the needle path. One pass was made with the 22 gauge needle using a transgastric approach. A stylet was used. The amount of fluid collected was 1 mL. The fluid was clear and slightly viscous. Sample(s) were sent for cytology. Verification of patient identification for the specimen was done by the physician and nurse using the patient's name and date. Impression: - There was no sign of significant pathology in the ampulla. - There was no sign of significant pathology in the common bile duct. - There was diffuse abnormal echotexture in the visualized portion of the liver consistent with Liver cirrhosis. - There was no sign of significant pathology in the entire pancreas. - A 10 mm cyst was seen in the uncinate process of the pancreas likely a side branch IPMN. - A 10 mm cyst was seen in the pancreatic tail likely a side branch IPMN. Fine needle aspiration for fluid performed. Recommendation: - Discharge patient to home. - Await cytology results. - Perform magnetic resonance imaging (MRI) in 1 year. - Return to referring physician. Sunni Barrios MD 08/02/2024 11:24:15 AM This report has been signed electronically. * Anastasia Mendez CRNP - 08/02/2024 10:26 AM ESTAssociated Order(s): UPPER GI ENDOSCOPY [facility] Patient Name: Kailyn Melton Procedure Date: 08/02/2024 10:26 AM Date of : 1960 Admit Type: Outpatient Note Status: Finalized Date of : 1960 Admit Type: Outpatient Age: 64 Room: Advanced [facility] Gender: Female Note Status: Finalized Procedure: Upper GI endoscopy Indications: Follow-up of esophageal varices Providers: Sunni Barrios MD (Doctor), Mark Bermeo RN Referring MD: Anastasia Mendez NP (Referring MD), Bruna Kaur MD (Referring MD) Medicines: Propofol per Anesthesia Complications: No immediate complications. Procedure: Pre-Anesthesia Assessment: - Prior to the procedure, a History and Physical was performed, and patient medications, allergies and sensitivities were reviewed. The patient's tolerance of previous anesthesia was reviewed. - The risks and benefits of the procedure and the sedation options and risks were discussed with the patient. All questions were answered and informed consent was obtained. - Patient identification and proposed procedure were verified prior to the procedure by the physician and the nurse. The procedure was verified in the procedure room. - Pre-procedure physical examination revealed no contraindications to sedation. After obtaining informed consent, the endoscope was passed under direct vision. All instruments were visually inspected immediately before and after removal from the patient to ensure they are fully intact. Throughout the procedure, the patient's blood pressure, pulse, and oxygen saturations were monitored continuously. The upper EUS was accomplished without difficulty. The patient tolerated the procedure well. The [id number]-[id number] Endoscope ([id number]) was introduced through the mouth, and advanced to the second part of duodenum. Findings & Specimens: Two columns of grade III, large (> 5 mm) varices with no bleeding and no stigmata of recent bleeding were found in the lower third of the esophagus. Red kamron signs were present. Two bands were successfully placed with complete eradication, resulting in deflation of varices. Mild portal hypertensive gastropathy was found in the stomach. The duodenal bulb and second portion of the duodenum were normal. Impression: - Grade III, large esophageal varices. Banded. - Portal hypertensive gastropathy. - Normal duodenal bulb and second portion of the duodenum. - No specimens collected. Recommendation: - Clear liquid diet for 1 day, then advance as tolerated to full liquid diet for 1 day then soft diet for 2 days. - No aspirin, ibuprofen, naproxen, or other non-steroidal anti-inflammatory drugs for 5 days. - Repeat upper endoscopy in 2 months for retreatment. - Use a proton pump inhibitor PO BID for 2 months. - Use sucralfate suspension 1 gram PO BID for 2 weeks. Sunni Barrios MD 08/02/2024 11:19:15 AM This report has been signed electronically. documented in this encounter Nursing Notes * Katiuska Bojorquez RN - 08/02/2024 12:51 PM EST Patient is alert, Patient rates jaw aching 3/10 on the adult numeric scale.Patient is tolerating pofluids prior to discharge. Patient has been visited by Dr. Barrios, and Dr. Sharp. Patient has received and demonstrates understanding of discharge instructions. Patient is transported via ambulated to private auto accompanied by endo staff. * Katiuska Bojorquez RN - 08/02/2024 11:[address] Sharp returned giving medication for heart burn. * Katiuska Bojorquez RN - 08/02/2024 11:40 AM EST Lights dimmed patient encouraged to rest. * Katiuska Bojorquez RN - 08/02/2024 11:[address] Sharp returned, administering medication. * Katiuska Bojorquez RN - 08/02/2024 11:[address] Sharp in to evaluate patient's aching lower jaw. Patient unable to assign a number on the adult numeric scale. Patient verbalized having "Heartburn." HOB elevated. Dr. Sharp went to get some medicine. Patient continues grimacing and holding her lower jaw. * Katiuska Bojorquez RN - 08/02/2024 11:21 AM EST Patient transferred to pacu 2 status post EGD, EUS. Patient sleeping. Respirations are even and unlabored on room air. Abdomen soft and non distended. Vital signs stable. Report was received from JIMI. RN at bedside. Call goldsmith is available to the patient. * Mark Bermeo RN - 08/02/2024 11:17 AM EST See anesthesia record for medication administered during procedure. Mark Bemreo RN Pre cleaning of scope at the bedside started by concrete engineering technician. FNA performed on pancreatic cyst by Dr Barrios using a [employer] 22 gauge needle. One pass made, specimen placed in RPMI per order. Pt tolerated well. Two variceal bands placed in distal esophagus without difficulty, no active bleeding noted post banding. Pt tolerated well. * Emily Oakley RN - 08/02/2024 10:44 AM EST The following pt discharge instructions reviewed with pt prior to prodedure: No driving today. No alcohol today. No signing of legal documents. Rest as much as possible today and can return to normal activities tomorrow. No operating any heavy equipment today. Diet as tolerated. Pt verbalized understanding. documented in this encounter Plan of Treatment Upcoming Encounters Date Type Department Care Team (Latest Contact Info) Description 10/13/2024 9:30 AM EST Hospital Encounter ENDO [facility], Endoscopy Room [facility] [address] [place] [phone] Bridger Harris MD [address] [place] [address] 10/13/2024 9:30 AM EST - 10/13/2024 10:00 AM EST Surgery ENDO [facility], Endoscopy Room [facility] [address] [place] [phone] Bridger Harris MD [address] [place] [address] ESOPHAGOGASTRODUODENOSCOPY (EGD), FLEXIBLE, TRANSORAL, DIAGNOSTIC 10/13/2024 10:00 AM EST Office Visit [address] [place] [phone] Leidy Nunn CRNP [address] [facility] [place] [address] 11/09/2024 10:30 AM EDT Office Visit Gastroenterology , [facility] [address] [address] Anastasia Mendez CRNP [address] [address] 12/20/2024 10:00 AM EDT Office Visit Family Practice [facility] [address] [place] [address] Bruna Kaur MD [address] [place] [address] Pending Results Name Type Priority Associated Diagnoses Date /Time CYTOLOGY Pathology Routine 08/02/2024 11: 24 AM EST MYGENVARCYTO PANCREATIC CYST AND BILE DUCT FLUID GENE PANEL, NEXT GENERATION SEQUENCING Lab STAT 08/02/2024 11:24 AM EST Scheduled Orders Name Type Priority Associated Diagnoses Orde r Schedule CYTOLOGY Pathology Routine One Time for 1 Occurrences starting 08/02/2024 until 08/02/2024, 1 completed MYGENVARCYTO PANCREATIC CYST AND BILE DUCT FLUID GENE PANEL, NEXT GENERATION SEQUENCING Lab STAT One Time f or 1 Occurrences starting 08/02/2024 until 08/02/2024, 1 completed Scheduled Procedures Name Priority Associated Diagnoses Date/Ti [...] this encounter Medical Devices Implanted Type Area Dependency Director Device Identifier Shelf Expiration Date Model / Serial / Lot Hemostatic Clip Res 235cm - [id number] Implanted:Qty: 2 on 11/17/2023 by Zakia Mathur DO at ENDOSCOPY [facility] : ENDOSCOPY 04/12/2026 [id number] / / documented as of this encounter Procedures Procedure Name Priority Date/Time Associated Diagnosis Comments UPPER ENDOSCOPIC U/S 08/02/2024 11:19 AM EST UPPER GI ENDOSCOPY 08/02/2024 10 :26 AM EST documented in this encounter Results * UPPER ENDOSCOPIC U/S (08/02/2024 11:19 AM EST) 08/02/2024 11:1 9 AM EST Narrative Procedure Note Anastasia Mendez CRNP - 08/02/2024 11:19 AM EST [facility] Patient Name: Kailyn Melton Procedure Date: 08/02/2024 11:19 AM Date of : 1960 Admit Type: Outpatient Note Status:Finalized Date of : 1960 Admit Type: Outpatient Age: 64 Room: Advanced Endo Gender: Female Note Status: Finalized Procedure: Upper EUS Indications: Pancreatic cyst on CT scan Providers: Sunni Barrios MD (Doctor), Mark Bermeo RN Referring MD: Anastasia Mendez NP (Referring MD), Bruna Kaur MD(Referring MD) Medicines: Propofol per Anesthesia Complications: No immediate complications. Procedure: Pre-Anesthesia Assessment: - Prior to the procedure, a History and Physicalwas performed, and patient medications, allergies and sensitivities werereviewed. The patient's tolerance of previous anesthesia was reviewed. - The risks and benefits of the procedure and thesedation options and risks were discussed with the patient. All questions wereanswered and informed consent was obtained. - Patient identification and proposed procedurewere verified prior to the procedure by the physician and the nurse. The procedure wasverified in the procedure room. - Pre-procedure physical examination revealed nocontraindications to sedation. After obtaining informed consent, the endoscope waspassed under direct vision. All instruments were visually inspected immediatelybefore and after removal from the patient to ensure they are fully intact. Throughout the procedure, the patient's bloodpressure, pulse, and oxygen saturations were monitored continuously. The Endoscope wasintroduced through the mouth, and advanced to the second part of duodenum. The upperEUS was accomplished without difficulty. The patient tolerated the procedurewell. Findings & Specimens: ENDOSONOGRAPHIC FINDING: : There was no sign of significant endosonographic abnormality in theampulla. No masses were identified. There was no sign of significant endosonographic abnormality in thecommon bile duct. The maximum diameter of the duct was 4 mm. There was diffuse abnormal echotexture in the visualized portion ofthe liver. This was characterized by a heterogenous appearance. There was no sign of significant endosonographic abnormality in theentire pancreas. The pancreatic duct measured up to 2 mm in diameter. An anechoic lesion suggestive of a cyst was identified in theuncinate process of the pancreas. The lesion measured 10 mm in maximal cross-sectional diameter. There wasa single compartment without septae. The outer wall of the lesion was thin. There was noassociated mass. There was no internal debris within the fluid-filled cavity.FNA not performed due tosurrounding vascularity and CBD. An anechoic lesion suggestive of a cyst was identified in thepancreatic tail. The lesion measured 10 mm in maximal cross-sectional diameter. There was a singlecompartment without septae. The outer wall of the lesion was thin. There was no associated mass. There was nointernal debris within the fluid-filled cavity. Diagnostic needle aspiration for fluid wasperformed. Color Doppler imaging was utilized prior to needle puncture to confirm a lack of significantvascular structures within the needle path. One pass was made with the 22 gauge needle using atransgastric approach. A stylet was used. The amount of fluid collected was 1 mL. The fluid was clear andslightly viscous. Sample(s) were sent for cytology. Verification of patient identification for thespecimen was done by the physician and nurse using the patient's name and date. Impression: - There was no sign of significant pathology in theampulla. - There was no sign of significant pathology in thecommon bile duct. - There was diffuse abnormal echotexture in thevisualized portion of the liver consistent with Liver cirrhosis. - There was no sign of significant pathology in theentire pancreas. - A 10 mm cyst was seen in the uncinate process ofthe pancreas likely a side branch IPMN. - A 10 mm cyst was seen in the pancreatic taillikely a side branch IPMN. Fine needle aspiration for fluid performed. Recommendation: - Discharge patient to home. - Await cytology results. - Perform magnetic resonance imaging (MRI) in 1year. - Return to referring physician. Sunni Barrios MD 08/02/2024 11:24:15 AM This report has been signed electronically. Anastasia SANTANA GASTRO UPPER Final R esult * UPPER GI ENDOSCOPY (08/02/2024 10:26 AM EST) 08/02/2024 10:2 6 AM EST Narrative Procedure Note Anastasia Mendez CRNP - 08/02/2024 10:26 AM EST [facility] Patient Name: Kailyn Melton Procedure Date: 08/02/2024 10:26 AM Date of : 1960 Admit Type: Outpatient Note Status:Finalized Date of : 1960 Admit Type: Outpatient Age: 64 Room: Advanced Endo Gender: Female Note Status: Finalized Procedure: Upper GI endoscopy Indications: Follow-up of esophageal varices Providers: Sunni Barrios MD (Doctor), Mark Bermeo RN Referring MD: Anastasia Mendez NP (Referring MD), Bruna Roberts MD (Referring MD) Medicines: Propofol per Anesthesia Complications: No immediate complications. Procedure: Pre-Anesthesia Assessment: - Prior to the procedure, a History and Physicalwas performed, and patient medications, allergies and sensitivities werereviewed. The patient's tolerance of previous anesthesia was reviewed. - The risks and benefits of the procedure and thesedation options and risks were discussed with the patient. All questions wereanswered and informed consent was obtained. - Patient identification and proposed procedurewere verified prior to the procedure by the physician and the nurse. The procedure wasverified in the procedure room. - Pre-procedure physical examination revealed nocontraindications to sedation. After obtaining informed consent, the endoscope waspassed under direct vision. All instruments were visually inspected immediatelybefore and after removal from the patient to ensure they are fully intact. Throughout the procedure, the patient's bloodpressure, pulse, and oxygen saturations were monitored continuously. The upper EUS wasaccomplished without difficulty. The patient tolerated the procedure well. The [id number] ([id number]) was introduced through the mouth, and advanced to the second partof duodenum. Findings & Specimens: Two columns of grade III, large (> 5 mm) varices with no bleeding andno stigmata of recent bleeding were found in the lower third of the esophagus. Red kamron signs werepresent. Two bands were successfully placed with complete eradication, resulting in deflationof varices. Mild portal hypertensive gastropathy was found in the stomach. The duodenal bulb and second portion of the duodenum were normal. Impression: - Grade III, large esophageal varices. Banded. - Portal hypertensive gastropathy. - Normal duodenal bulb and second portion of theduodenum. - No specimens collected. Recommendation: - Clear liquid diet for 1 day, then advance astolerated to full liquid diet for 1 day then soft diet for 2 days. - No aspirin, ibuprofen, naproxen, or othernon-steroidal anti-inflammatory drugs for 5 days. - Repeat upper endoscopy in 2 months forretreatment. - Use a proton pump inhibitor PO BID for 2months. - Use sucralfate suspension 1 gram PO BID for 2weeks. Sunni Barrios MD 08/02/2024 11:19:15 AM This report has been signed electronically. Anastasia Jim SANTANA GASTRO UPPER Final R esult documented in this encounter Administered Medications Inactive Administered Medications - up to 3 most recent administrations Medication Order MAR Action Action Date Dose Rate Site Isolyte-S pH 7.4 infusion Intravenous, at 100 mL/hr, Plasma-LYTE 148, isolyte-S, and isolyte-S pH 7.4 are considered equivalent - including for MAR barcode scanning., CONTINUOUS, Starting on Wed08/02/24 at 1100, Until Wed08/02/24 at 1858, Pre-Op Continue from Pre-Op 08/02/2024 10:51 AM EST 100 mL/hr New Bag 08/02/2024 10:43 AM EST 100 mL/hr documented in this encounter Active and Recently Administered Medications Times are shown in EST. Continuous Medication Order 07/31/2024 08/01/2024 08/02/2024 Isolyte-S pH 7.4 infusion Intravenous, at 100 mL/hr, Plasma-LYTE 148, isolyte-S, and isolyte-S pH 7.4 are considered equivalent - including for MAR barcode scanning., CONTINUOUS, Starting on Wed08/02/24 at 1100, Until Wed08/02/24 at 1858, Pre-Op 1043 (New Bag - Prov ider: Emily Oakley RN)1051 (Continue from Pre-Op - Provider: Bautista Harper CRNA)1117 (Anes Intra-Op Fluid - Provider: Bautista Harper CRNA) documented in this encounter Care Teams Leasing Professional Relationship Specialty Start Date End Date Bruna Kaur MD [address] [place] [address] PCP - General Internal Medicine 06/03/21 documented as of this encounter
--- OUTSIDE RECORDS SUMMARY | 2024-10-09 19:52 | External Medical Summary | Summary of Care ---
Author Name Unknown Organization [facility] Address [address] [facility] [address] Phone [phone] Care Team Providers Care Pocketbook Maker Name Role Phone Casimiro Kaur MD Primary Care Provider Reason for Visit * Reason Comments eRx-Medication Refill Encounter Details Date Type Department Care Team (Late st Contact Info) Description 09/24/2024 Refill Family Practice [facility] [address] [place] [address] Casimiro Kaur MD [address] [place] [address] Leg swelling; HTN, goal below 140/90 Allergies Active Allergy Reactions Criticality Noted Date Comments Sulfamethoxazole-Trimethopr im 08/07/2019 Naproxen Nausea/vomiting High 02/20/2002 Other reaction(s): nausea Naproxen Sodium Medium 12/21/2022 Sulfamethoxazole High 03/14/2020 Trimethoprim High 03/14/2020 documented as of this encounter (statuses as of 09/25/2024) Medications Acetaminophen Extra Strength 500 MG Oral [...] taking differently:5 mg OralDaily(AM), Reported on 09/22/2024 Hyoscyamine Sulfate 0.125 MG Sublingual Tablet Sublingual [...] Tablet before bedtime. 180 Tablet 08/02/20 24 2024 Active Doxycycline Hyclate 100 MG Oral CapsuleIndicatio ns:Acute cough Take 1 Capsule by mouth in the morning and 1 Capsule before bedtime. Do all this for 10 days. Until gone.. 20 Capsule 09/22/19 25 2024 Active predniSONE 20 MG Oral Tablet (Deltasone)Indic ations:Acute cough Take 2 Tablets by mouth in the morning for 5 days. 10 Tablet 09/22/19 25 2024 Active hydroCHLOROthiaz kellen 25 MG Oral Tablet (Hydrodiuril)Ind ications:Leg swelling,HTN, goal below 140/90 TAKE 1 TABLET BY MOUTH EVERY DAY IN THE MORNING 30 Tablet 5 09/25/19 25 Active hydroCHLOROthiaz kellen 25 MG Oral Tablet (Hydrodiuril)Ind ications:Leg swelling,HTN, goal below 140/90 Take 1 Tablet by mouth in the morning. 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 Not on file documented as of this encounter Miscellaneous Notes * Telephone Encounter - Elma Becerril, [facility] - 09/25/2024 11:20 AM ESTSigned Prescriptions: Disp Refills hydroCHLOROthiazide 25 MG Oral Tablet (Hyd*30 Tab*5 Sig: TAKE 1 TABLET BY MOUTH EVERY DAY IN THE MORNINGAuthorizing Provider: CASIMIRO KAUR User: ELMA BECERRIL documented in this encounter Plan of Treatment Upcoming Encounters Date Type Department Care Team (Latest Contact Info) Description 10/10/2024 1:30 PM EST Imaging Radiology [address] [place] [address] 10/13/2024 9:30 AM EST Hospital Encounter [facility], Endoscopy Room [facility] [address] [place] [phone] Bridger Harris MD 132 [facility] [place] [address] 10/13/2024 9:30 AM EST - 10/13/2024 10:00 AM EST Surgery [facility], Endoscopy Room [facility] [address] [place] [phone] Bridger Harris MD [address] [place] [address] ESOPHAGOGASTRODUODENOSCOPY (EGD), FLEXIBLE, TRANSORAL, DIAGNOSTIC 10/13/2024 10:00 AM EST Office Visit Rheumatology [address] [place] [phone] Leidy Nunn CRNP [address] [place] [address] [place] [address] 11/09/2024 10:30 AM EDT Office Visit Gastroenterology , [facility] [address] [place] [address] Anastasia Mendez CRNP [address] [place] [address] 12/20/2024 10:00 AM EDT Office Visit [facility] [address] [place] [address] Casimiro Kaur MD [address] [place] [address] Scheduled Procedures Name Priority Associated Diagnoses Date/Ti [...] this encounter Medical Devices Implanted Type Area Floor Layer Tile Device Identifier Shelf Expiration Date Model / Serial / Lot Hemostatic Clip Res 235cm - [id number] Implanted:Qty: 2 on 11/17/2023 by Zakia Mathur DO at ENDOSCOPY [facility] : ENDOSCOPY 04/12/2026 [id number] / / documented as of this encounter Visit Diagnoses Diagnosis Leg swelling Swelling of limb HTN, goal below 140/90 Unspecified essential hypertension Screening mammogram for breast cancer Varices of esophagus determined by endoscopy (HCC) documented in this encounter Care Teams Pocketbook Maker Relationship Specialty Start Date End Date Casimiro Kaur MD [address] [place] [address] PCP - General Internal Medicine 06/03/21 documented as of this encounter
--- OUTSIDE RECORDS SUMMARY | 2024-10-09 19:53 | External Medical Summary | Summary of Care ---
Author Name Unknown Organization [facility] Address [address] [facility] [address] Phone [phone] Care Team Providers Care Hotel Engineer Name Role Phone Bruna Kaur MD Primary Care Provider Reason for Visit * Reason Onset Date Comments Advice 06/27/2024 Encounter Details Date Type Department Care Team (Late st Contact Info) Description 06/27/2024 Telephone Family Practice [facility] [address] [place] [address] Bruna Kaur MD [address] [place] [address] Advice Allergies Active Allergy Reactions Criticality Noted Date Comments Sulfamethoxazole-Trimethopr im 08/07/2019 Naproxen Nausea/vomiting High 02/20/2002 Other reaction(s): nausea Naproxen Sodium Medium 12/21/2022 Sulfamethoxazole High 03/14/2020 Trimethoprim High 03/14/2020 documented as of this encounter (statuses as of 06/27/2024) Medications Acetaminophen Extra Strength 500 MG Oral Tablet 2 Active tiZANidine HCl 4 MG Oral Tablet (Zanaflex)Indicati ons:Spasm of muscle Take 1 Tablet by mouth every 8 hours as needed for Muscle spasms. 30 Tablet 1 3 Active Zoster Vac Recomb Adjuvanted 50 MCG/0.5ML Intramuscular Suspension Reconstituted (Shingrix)Indicati ons:Need for zoster vaccination Inject 0.5 mL into a large muscle now and repeat dose in 60 to 180 days 1 Each 1 3 Active Famotidine 20 MG Oral Tablet (Pepcid) Active Dicyclomine HCl 10 MG Oral Capsule (Bentyl) Take 1 Capsule by mouth 2 times a day as needed for Cramping. 180 Capsule 4 3 Active Multivitamin Women 50+ Oral Tablet Take by mouth daily. Active Aspirin 81 MG Oral Tablet Delayed Release Take 1 Tablet by mouth in the morning and 1 Tablet before bedtime. Active Omeprazole 20 MG Oral Capsule Delayed Release (PriLOSEC)Indicati ons:Gastroesophage al reflux disease with esophagitis without hemorrhage TAKE 1 CAPSULE BY MOUTH EVERY MORNING 30 Capsule 5 4 Active Atorvastatin Calcium 20 MG Oral Tablet (Lipitor)Indicatio ns:Dyslipidemia, goal LDL below 100 Take 1 Tablet by mouth in the morning. In the morning.. 90 Tablet 3 4 Active Losartan Potassium 100 MG Oral Tablet (Cozaar)Indication s:Hypertension goal BP (blood pressure) < 130/80 Take 1 Tablet by mouth in the morning. 90 Tablet 3 4 Active amLODIPine Besylate 5 MG Oral Tablet (Norvasc)Indicatio ns:Hypertension goal BP (blood pressure) < 130/80 Take 1 Tablet by mouth daily. 90 Tablet 3 4 Active hydroCHLOROthiazid e 25 MG Oral Tablet (Hydrodiuril)Indic ations:Leg swelling,HTN, goal below 140/90 Take 1 Tablet by mouth in the morning. 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 Notified of below. Patient verbalized understanding and stated "Ill see what I can do" * Telephone Encounter - Bruna Kaur MD - 06/27/2024 3:18 PM EST Agree with coverage. She cirrhosis with history of ascites and worsening abdominal pain could be serious bacterial infection. * Telephone Encounter - Mark Cloud MD - 06/27/2024 1:15 PM EST With worsening severe abd pain since last week, should go to ER for eval & imaging. Need to rule out infection, abscess, constipation etc * Telephone Encounter - Melissa Willis OSA - 06/27/2024 12:35 PM EST Patient is still having pain in lower belly, she states she can not eat. Last time she ate was lunch yesterday, and tried to eat a wrap this morning but couldn't. Every time she goes to the bathroom she is still having pain as well. She said it is worsening since last week, I offered appointment, she just wants advice. documented in this encounter Plan of Treatment Upcoming Encounters Date Type Department Care Team (Late st Contact Info) Description 07/14/2024 9:30 AM EST Office Visit Gastroenterology, [facility] [address] [place] [address] Anastasia Mendez CRNP [address] [place] [address] 07/19/2024 10:30 AM EST Office Visit Interventional Pain Center, [facility] [address] [place] [address] [address] Jeanie Mckeon PA-C [address] [place] [address] 10/13/2024 10:00 AM EST Office Visit Rheumatology [address] [place] [phone] Leidy Nunn CRNP [address] [facility] [place] [address] 12/20/2024 10:00 AM EDT Office Visit Family Practice [facility] [address] [place] [address] Bruna Kaur MD [address] [place] [address] Scheduled Procedures Name Priority Associated Diagnoses Date/Ti me COLONOSCOPY FLEXIBLE PROXIMAL DIAGNOSTIC Recall History of colonic polyps ESOPHAGOGASTRODUODENOSCOPY [...] this encounter Medical Devices Implanted Type Area Delivery Helper Device Identifier Shelf Expiration Date Model / Serial / Lot Hemostatic Clip Res 235cm - [id number] Implanted:Qty: 2 on 11/17/2023 by Zakia Mathur DO at ENDOSCOPY [facility] : ENDOSCOPY 04/12/2026 [id number] / / documented as of this encounter Care Teams Hotel Engineer Relationship Specialty Start Date End Date Bruna Kaur MD [address] [place] [address] PCP - General Internal Medicine 06/03/21 documented as of this encounter
--- OUTSIDE RECORDS SUMMARY | 2024-10-09 19:53 | External Medical Summary ---
Author Name Unknown Address Unknown Organization K01:[facility] [place] [address] [place] [address] Laboratory Report Ordering Provider Test Date Status DONALD KIRKPATRICK 06/22/2024 09:30:34 Final Observation Date Value Abnormality Reference (Units) Status Bacteria identified in Specimen by Culture 06/22/2024 09:30:34 No significant growth Final Test: Culture, Urine, Quanti tative
Specimen Source: Urine, Clean Catch
Specimen Type: Urine
Specimen Date: 06/22/2024929
Result Date: 06/23/2024 1152
Result Status: Final result
Resulting Lab: [facility]
[address]
[place] [address]

CULTURE

No significant growth

null Performing Location [facility] [place] [place] [address] [facility] [address]
--- OUTSIDE RECORDS SUMMARY | 2024-10-09 19:53 | External Medical Summary | Summary of Care ---
Author Name Unknown Organization [facility] Address [address] [place] [address] Phone [phone] Care Team Providers Care Urban Sociologist Name Role Phone Bruna Kaur MD Primary Care Provider Reason for Referral * Precert (Within 10 days (routine)) - Pending Review Specialty Diagnoses / Procedures Referred By Kathy t Referred To Contact Radiology Diagnoses Other cirrhosis of liver (HCC) Lower abdominal pain IPMN (intraductal papillary mucinous neoplasm) Procedures CT ABD/PELVIS W LIVER 4-PHASE W WO IV CONTRAST Anastasia Mendez CRNP [address] [place] [address] Phone: tel: fax: Referral ID Status Reason Start Date Expiration Date V isits Requested Visits Authorized [id number] Pending Review 06/30/2024 [id number] Reason for Visit * Reason Onset Date Comments Advice 06/30/2024 CT order ? Encounter Details Date Type Department Care Team (Late st Contact Info) Description 06/30/2024 Telephone Radiology [facility] 1st [facility] [address] [employer] [facility] [address] Kimber Faulkner, RT (R) Advice (CT order ?) Allergies Active Allergy Reactions Criticality Noted Date Comments Sulfamethoxazole-Trimethopr im 08/07/2019 Naproxen Nausea/vomiting High 02/20/2002 Other reaction(s): nausea Naproxen Sodium Medium 12/21/2022 Sulfamethoxazole High 03/14/2020 Trimethoprim High 03/14/2020 documented as of this encounter (statuses as of 06/30/2024) Medications Acetaminophen Extra Strength 500 MG Oral [...] for Nausea. 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 (Order# [id number]) Pt is scheduled for 07/04/24 Thank you, Kimber documented in this encounter Plan of Treatment Upcoming Encounters Date Type Department Care Team (Late st Contact Info) Description 07/04/2024 3:15 PM EST Imaging [facility] [address] [place] [address] 07/19/2024 10:30 AM EST Office Visit Interventional Pain Center, [facility] [address] [place] [address] Jeanie Mckeon PA-C [address] [place] [address] 10/13/2024 10:00 AM EST Office Visit Rheumatology [address] [place] [phone] Leidy Nunn CRNP [address] [facility] [place] [address] 11/09/2024 10:30 AM EDT Office Visit Gastroenterology, [facility] [address] [place] [address] Anastasia Mendez CRNP [address] [place] [address] 12/20/2024 10:00 AM EDT Office Visit Family Practice [facility] [address] [place] [address] Bruna Kaur MD [address] [place] [address] Scheduled Orders Name Type Priority Associated Diagnoses Orde r Schedule CT ABD/PELVIS W LIVER 4-PHASE W WO IV CONTRAST Medical Imaging Routine Other cirrhosis of liver (HCC) Lower abdominal pain IPMN (intraductal papillary mucinous neoplasm) Ordered: 06/30/2024 Scheduled Procedures Name Priority Associated Diagnoses Date/Ti [...] this encounter Medical Devices Implanted Type Area Artificial Pearl Maker Device Identifier Shelf Expiration Date Model / Serial / Lot Hemostatic Clip Res 235cm - [id number] Implanted:Qty: 2 on 11/17/2023 by Zakia Mathur DO at ENDOSCOPY [facility] : ENDOSCOPY 04/12/2026 [id number] / / documented as of this encounter Visit Diagnoses Diagnosis Other cirrhosis of liver (HCC)- Primary Lower abdominal pain Abdominal pain, other specified site IPMN (intraductal papillary mucinous neoplasm) Neoplasm of unspecified nature of digestive system documented in this encounter Care Teams Urban Sociologist Relationship Specialty Start Date End Date Bruna Kaur MD [address] [place] [address] PCP - General Internal Medicine 06/03/21 documented as of this encounter
--- OUTSIDE RECORDS SUMMARY | 2024-10-09 19:53 | External Medical Summary | Summary of Care ---
Author Name Unknown Organization [facility] Address [address] [facility] [place] [address] Phone [phone] Care Team Providers Care Compliance Investigator Name Role Phone Bruna Kaur MD Primary Care Provider Encounter Details Date Type Department Care Team (Late st Contact Info) Description 06/26/2024 Orders Only Family [facility] [address] [place] [address] Bruna Kaur MD [address] [place] [address] Allergies Active Allergy Reactions Criticality Noted Date Comments Sulfamethoxazole-Trimethopr im 08/07/2019 Naproxen Nausea/vomiting High 02/20/2002 Other reaction(s): nausea Naproxen Sodium Medium 12/21/2022 Sulfamethoxazole High 03/14/2020 Trimethoprim High 03/14/2020 documented as of this encounter (statuses as of 06/26/2024) Medications Acetaminophen Extra Strength 500 MG Oral [...] as of this encounter (statuses as of 06/26/2024) Active Problems Problem Noted Date Diagnosed Date [...] as of this encounter (statuses as of 06/26/2024) Resolved Problems Problem Noted Date Diagnosed Date [...] as of this encounter (statuses as of 06/26/2024) Immunizations Name Administration Dates Next Due COVID-19 [...] 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 [place] [address] 12/20/2024 10:00 AM EDT Office Visit Family Practice [facility] [address] [place] [address] Bruna Kaur MD [address] [place] [address] Scheduled Procedures Name Priority Associated Diagnoses Date/Ti [...] this encounter Medical Devices Implanted Type Area Faculty Member Device Identifier Shelf Expiration Date Model / Serial / Lot Hemostatic Clip Res 235cm - [id number] Implanted:Qty: 2 on 11/17/2023 by Zakia Mathur DO at ENDOSCOPY [facility] : ENDOSCOPY 04/12/2026 [id number] / / documented as of this encounter Procedures Procedure Name Priority Date/Time Associated Diagnosis Comments CHEMISTRY-OUTSIDE Routine 06/22/2024 TSH Routine 06/22/2024 documented in this encounter Results * (ABNORMAL) CHEMISTRY-OUTSIDE (06/22/2024) Not all results display below - see scan for full detail OUTSIDE LAB (SEE SCANNED REPORT) Comment:SCAN INCLUDES - CMP, TSH, PT INR, CBCD CREATININE 0.60 0.50 - 1.05 MG/DL OUTSIDE LAB (SEE SCANNED REPORT) EGFR 101 >=60 ML/MIN OUTSIDE LAB (SEE SCANNED REPORT) POTASSIUM 4.1 3.5 - 5.3 MMOL/L OUTSIDE LAB (SEE SCANNED REPORT) GLUCOSE 206(A) 65 - 99 MG/DL OUTSIDE LAB (SEE SCANNED REPORT) HOURS FASTING OUTSID E LAB (SEE SCANNED REPORT) TRIGLYCERIDES-OUT SIDE LAB OUTSIDE LAB (SEE SCANNED REPORT) CHOLESTEROL-OUTSI DE LAB OUTSIDE LAB (SEE SCANNED REPORT) HDL-OUTSIDE LAB OUTS IBIS LAB (SEE SCANNED REPORT) CHOL/HDL RATIO-OUTSIDE LAB OUTSIDE LA B (SEE SCANNED REPORT) LDL (CALCULATED)-OUTS IBIS LAB OUTSIDE LAB (SEE SCANNED REPORT) LDL (DIRECT MEASURE)-OUTSIDE LAB OUTSIDE LAB (SEE SCANNED REPORT) HEMOGLOBIN, [id number] LAB OUTSIDE LAB (SEE SCANNED REPORT) PHOSPHORUS-OUTSID E LAB OUTSIDE LAB (SEE SCANNED REPORT) PTH-OUTSIDE LAB OUTS IBIS LAB (SEE SCANNED REPORT) MICROALBUMIN RATIO-OUTSIDE LAB OUTSIDE LA B (SEE SCANNED REPORT) PROTEIN, UA-OUTSIDE LAB OUTSIDE LAB (SEE SCANNED REPORT) HGB 12.2 11.7 - 15.5 G/DL OUTSIDE LAB (SEE SCANNED REPORT) 06/22/2024 us Bruna Kaur MD LABORATORY Final Result OUTSIDE LAB (SEE SCANNED REPORT) * TSH (06/22/2024) TSH - OUTSIDE LAB 1.56 0.40 - 4.50 MIU/L OUTSIDE LAB (SEE SCANNED REPORT) Blood Venous blood specimen / Unknown 06/22/2024 us Bruna Kaur MD LAB BLOOD ORDERABLES F inal Result OUTSIDE LAB (SEE SCANNED REPORT) documented in this encounter Care Teams Compliance Investigator Relationship Specialty Start Date End Date Bruna Kaur MD [address] [facility] [place] [address] PCP - General Internal Medicine 06/03/21 documented as of this encounter
--- OUTSIDE RECORDS SUMMARY | 2024-10-09 19:53 | External Medical Summary | Summary of Care ---
Author Name Unknown Organization [facility] [address] [facility] [address] Phone [phone] Care Team Providers Care Golf Ball Inspector Name Role Phone Bruna Kaur MD Primary Care Provider Encounter Details Date Type Department Care Team (Late st Contact Info) Description 06/24/2024 Orders Only PATIENT PORTAL DO NOT DELETE THIS DEPT USED BY [place] ORTIZ [id number] Allergies Active Allergy Reactions Criticality Noted Date Comments Sulfamethoxazole-Trimethopr im 08/07/2019 Naproxen Nausea/vomiting High 02/20/2002 Other reaction(s): nausea Naproxen Sodium Medium 12/21/2022 Sulfamethoxazole High 03/14/2020 Trimethoprim High 03/14/2020 documented as of this encounter (statuses as of 06/24/2024) Medications Acetaminophen Extra Strength 500 MG Oral [...] as of this encounter (statuses as of 06/24/2024) Active Problems Problem Noted Date Diagnosed Date [...] as of this encounter (statuses as of 06/24/2024) Resolved Problems Problem Noted Date Diagnosed Date [...] as of this encounter (statuses as of 06/24/2024) Immunizations Name Administration Dates Next Due COVID-19 [...] 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 Not on file Not on file documented as of this encounter Plan of Treatment Upcoming Encounters Date Type Department Care Team (Late st Contact Info) Description 07/14/2024 9:30 AM EST Office Visit Gastroenterology, [facility] [address] [place] [address] Anastasia Mendez CRNP [address] [place] [address] 07/19/2024 10:30 AM EST Office Visit Interventional Pain Center, [facility] [address] [address] Jeanie Mckeon PA-C [address] [place] [address] 10/13/2024 10:00 AM EST Office Visit Rheumatology [address] [place] [phone] Leidy Nunn CRNP [address] [place] [address] [place] [address] 12/20/2024 10:00 AM EDT Office Visit Family Practice [facility] [address] [place] [address] Bruna Kaur MD [address] [facility] [place] [address] Scheduled Procedures Name Priority Associated Diagnoses Date/Ti [...] Test 08/10/2020 08/10/2019 Depression Screening 10/22/2023 10/21/2022 GFR 09/24/2024 09/24/2023, 12/2022, 05/12/2023, Additional history exists HbA1c 09/24/2024 09/24/2023, 12/2022, 11/03/2022, Additional history exists Mammogram 10/06/2024 10/06/2023, 12/2022, 08/19/2021, Additional history exists Albumin/Creatinine Ratio 09/24/2026 09/24/2023, [...] this encounter Medical Devices Implanted Type Area Waiter And Cashier Device Identifier Shelf Expiration Date Model / Serial / Lot Hemostatic Clip Res 235cm - [id number] Implanted:Qty: 2 on 11/17/2023 by Zakia Mathur DO at ENDOSCOPY [facility] : ENDOSCOPY 04/12/2026 [id number] / / documented as of this encounter Care Teams Golf Ball Inspector Relationship Specialty Start Date End Date Bruna Kaur MD [address] [place] [phone] PCP - General Internal Medicine 06/03/21 documented as of this encounter
--- OUTSIDE RECORDS SUMMARY | 2024-10-09 19:53 | External Medical Summary | Summary of Care ---
Author Name Unknown Organization [facility] Address [address] [place] [facility] [place] [address] Phone [phone] Care Team Providers Care Dental Assistant Medical Assistant Name Role Phone Bruna Kaur MD Primary Care Provider Reason for Visit * Reason Onset Date Comments Follow Up Pain in lower ab domen after eating x 2 months. Back pain and blood in urine x 2 months also. Medication Administration 06/22/2024 Flu an d/or Pneumo Inj Encounter Details Date Type Department Care Team (Late st Contact Info) Description 06/22/2024 8:40 AM EST Office Visit Family [facility] [address] [facility] [place] [phone] Bruna Kaur MD [address] [place] [address] Lower abdominal pain*; Fatigue, unspecified type; Other cirrhosis of liver (HCC); Leg swelling; HTN, goal below 140/90; Need for prophylactic vaccination and inoculation against influenza; Hematuria, unspecified type; Dysuria Allergies Active Allergy Reactions Criticality Noted Date Comments Sulfamethoxazole-Trimethopr im 08/07/2019 Naproxen Nausea/vomiting High 02/20/2002 Other reaction(s): nausea Naproxen Sodium Medium 12/21/2022 Sulfamethoxazole High 03/14/2020 Trimethoprim High 03/14/2020 documented as of this encounter (statuses as of 06/22/2024) Medications Medication Sig Dispensed Refills Start Date End Date Status Acetaminophen Extra Strength 500 MG Oral Tablet 08/31/2021 Active tiZANidine HCl 4 MG Oral Tablet (Zanaflex)Indicatio ns:Spasm of muscle Take 1 Tablet by mouth every 8 hours as needed for Muscle spasms. 30 Tablet 1 12/02/2022 Active Zoster Vac Recomb Adjuvanted 50 MCG/0.5ML Intramuscular Suspension Reconstituted (Shingrix)Indicatio ns:Need for zoster vaccination Inject 0.5 mL into a large muscle now and repeat dose in 60 to 180 days 1 Each 1 12/02/2022 Active Famotidine 20 MG Oral Tablet (Pepcid) Active Dicyclomine HCl 10 MG Oral Capsule (Bentyl) Take 1 Capsule by mouth 2 times a day as needed for Cramping. 180 Capsule 4 05/31/2023 Active Multivitamin Women 50+ Oral Tablet Take by mouth daily. Active Aspirin 81 MG Oral Tablet Delayed Release Take 1 Tablet by mouth in the morning and 1 Tablet before bedtime. Active Omeprazole 20 MG Oral Capsule Delayed Release (PriLOSEC)Indicatio ns:Gastroesophageal reflux disease with esophagitis without hemorrhage TAKE 1 CAPSULE BY MOUTH EVERY MORNING 30 Capsule 5 12/10/2023 Active Atorvastatin Calcium 20 MG Oral Tablet (Lipitor)Indication s:Dyslipidemia, goal LDL below 100 Take 1 Tablet by mouth in the morning. In the morning.. 90 Tablet 3 12/17/2023 Active Losartan Potassium 100 MG Oral Tablet (Cozaar)Indications :Hypertension goal BP (blood pressure) < 130/80 Take 1 Tablet by mouth in the morning. 90 Tablet 3 12/17/2023 Active amLODIPine Besylate 5 MG Oral Tablet (Norvasc)Indication s:Hypertension goal BP (blood pressure) < 130/80 Take 1 Tablet by mouth daily. 90 Tablet 3 12/17/2023 Active hydroCHLOROthiazide 25 MG Oral Tablet (Hydrodiuril)Indica tions:Leg swelling,HTN, goal below 140/90 Take 1 Tablet by mouth in the morning. 90 Tablet 06/22/2024 Active hydroCHLOROthiazide 25 MG Oral Tablet (Hydrodiuril)Indica tions:Leg swelling,HTN, goal below 140/90 Take 1 Tablet by mouth in the morning. 90 Tablet 01/22/2023 Discontinue d(Refill) documented as of this encounter (statuses as of 06/22/2024) Active Problems Problem Noted Date Diagnosed Date Preoperative general physical examination 2023 Secondary esophageal varices without bleeding Overview: EGD 2023. Also portal hypertensive gastropathy. Repeat EGD in 1yr. Colon polyp 11/17/2023 Overview: 11/2023. Two polyps. Easy friability due to portal hypertensive colopathy. Thrombocytopenia 12/02/2022 Hepatic cirrhosis 12/02/2022 Vitamin D deficiency 11/06/2022 Food insecurity 10/26/2022 Overview: Per [facility] Protocol Other cirrhosis of liver 05/29/2022 Steatohepatitis 10/29/2021 Overview: With possible cirrhosis on liver biopsy 2021. Workup in progress, ? Related to rheumatoid arthritis and or leflunomide. Pancreatic cyst 10/13/2021 Overview: 6 mm, seen on endoscopic ultrasound 09/2021. Repeat MRI in 2 years for surveillance. Prediabetes 07/28/2021 Overview: Per Prediabetes protocol Rheumatoid arthritis involvi ng both hands with positive rheumatoid factor 07/10/2019 S/P hysterectomy with oophorectomy 05/04/2018 Kidney stones 04/19/2014 Back pain, chronic 04/20/2013 Overview: This is purely musculo-skeletal. The stones are not causing this pain. Dyslipidemia, goal LDL below 100 03/11/2012 HTN, goal below 140/90 12/26/2010 OA (osteoarthritis) of knee Overview: bilateral Reflux esophagitis DDD (degenerative disc disease), cervical documented as of this encounter (statuses as of 06/22/2024) Resolved Problems Problem Noted Date Diagnosed Date Resolved Date Pyogenic arthritis of left hip 11/06/2022 11/26/2023 Prediabetes 09/28/2017 11/28/2020 Overview: Per Prediabetes protocol #1 Calculus of ureter 06/28/2014 4 Overview: Right upper ureter- 8 x 8 mm. Acute appendicitis 12/28/2012 7 Sacroiliac joint pain 03/11/20122018 Dyslipidemia, goal to be determined 07/23/2009 03/11/2012 Overview: Per Lipid Taxonomy. Mixed dyslipidemia 08/24/2008 9 Overview: Per Lipid Taxonomy. Major depressive disorder 08/24/2008 Overview: ICD-10 update of inactive term ADVANCE DIRECTIVE INFORMATION 07/27/2006 06/19/2024 Overview: No, Advance Directive brochure given to patient. NONE 03/14/2003 08/19/2011 documented as of this encounter (statuses as of 06/22/2024) Immunizations Name Administration Dates Next Due COVID-19 [...] money to get more. Sometimes true 03/2023 Sex and Gender Information Value Date Recorded Sex Assigned at Female 05/05/2019 3:27 PM EDT Gender Identity Female 05/05/2019 3:27 PM EDT Sexual Orientation Straight 05/05/2019 3: 27 PM EDT Job Start Date Occupation Industry Not on file Not on file Not on file documented as of this encounter Last Filed Vital Signs Vital Sign Reading Time Taken Comments Blood Pressure 140/82 06/22/2024 9:27 AM EST Pulse 67 06/22/2024 9:27 AM EST Temperature - - Respiratory Rate - - Oxygen Saturation 96% 06/22/2024 9:27 AM EST Inhaled Oxygen Concentration - - Weight 74.4 kg (164 lb) 06/22/2024 9:27 AM EST Height - - Body Mass Index 26.47 11/17/2023 12:39 PM EDT documented in this encounter Patient Instructions * Patient Instructions* Bruna Kaur MD - 06/22/2024 9:22 AM EST Labs TODAY Imaging once we have results We are sending urine for culture. Restart HCTZ - this will help get rid of fluid and lower your blood pressure. Take in AM with losartan;. documented in this encounter Progress Notes * Bruna Kaur MD - 06/22/2024 8:51 AM EST Images from the original note were not included. Subjective Kailyn Melton is a 64 year old female that presents for Follow Up (Pain in lower abdomen after eating x 2 months. Back pain and blood in urine x 2 months also.) and Medication Administration (Flu and/or Pneumo Inj) History of Present Illness The patient, with a history of cirrhosis, hypertension, and high cholesterol, presents with lower abdominal pain and frequent bowel movements. The abdominal pain is severe, often doubling her over, and is associated with eating, particularly larger meals. The pain is located in the lower abdomen and is bilateral. Following the onset of pain, she reports needing to move her bowels within ten minutes. The initial bowel movement appears normal, but she often needs to return to the bathroom shortlyafter for a second bowel movement, which is described as runny diarrhea. She denies any blood in the stool but reports occasional blood when wiping after urination. She also reports bloating and weight fluctuations, with her abdomen sometimes appearing almost . She denies any heartburn. No bloody vaginal discharge. She also reports a history of constipation, which has improved and no longer requires Miralax. She is active, walking approximately fifteen thousand steps a day. She also reports taking ibuprofen forshoulder pain, despite a history of cirrhosis. Reports not taking all her blood pressure medications, didn't know what they were for so stopped them. As best as we can tell, she is taking losartan but not HCTZ or amlodipine. Has been having more headaches and fatigue lately. Cirrhosis - Abd us 04/2023 no solid masses Hx RA MRI pancreatic cyst, hepatic cyst. Due f/u MRI 07/2024 Pre-diabetes Current medications and allergies reviewed. Past medical history and problem list reviewed. Objective Vitals: 06/22/24 0927 Pulse: 67 SpO2: 96% BP: 140/82 Physical Exam VITALS: BP- 170/78 MEASUREMENTS: WT- 164 ABDOMEN: Tenderness in epigastric, right upper quadrant, and lower abdomen. No ascites. Physical Exam Vitals and nursing note reviewed. Constitutional: General: She is not in acute distress. Appearance: Normal appearance. She is not ill-appearing. HENT: Head: Normocephalic and atraumatic. Eyes: General: No scleral icterus. Pupils: Pupils are equal, round, and reactive to light. Neck: Thyroid: No thyroid mass, thyromegaly or thyroid tenderness. Cardiovascular: Rate and Rhythm: Normal rate and regular rhythm. Heart sounds: No murmur heard. Pulmonary: Effort: Pulmonary effort is normal. Breath sounds: Normal breath sounds. Abdominal: General: Abdomen is flat. Bowel sounds are normal. There is no distension. Palpations: Abdomen is soft. There is no mass. Tenderness: There is abdominal tenderness (epigastric, RUQ, all lower quadrants). There is no guarding or rebound. Comments: No saad ascites Musculoskeletal: Right lower leg: No edema. Left lower leg: No edema. Lymphadenopathy: Cervical: No cervical adenopathy. Skin: General: Skin is warm and dry. Neurological: Mental Status: She is alert. Psychiatric: Mood and Affect: Mood normal. Behavior: Behavior normal. I have reviewed the following results: AFP, CMP, Hemoglobin A1C, CBC, and Albumin / Creatinine Ratio, Urine Urine dip. Assessment and Plan Assessment & Plan Abdominal Pain and Diarrhea Severe lower abdominal pain and diarrhea following meals, particularly larger meals. No blood in stool, no tarry stools, no metallic odor. No clear food triggers identified. -Order CBC, liver tests, kidney function, thyroid function, and platelet count. -Plan for imaging pending results. -Has GI f/u later this month. Hypertension Blood pressure elevated at 170/78. Patient has been noncompliant with amlodipine and hydrochlorothiazide. -Resume hydrochlorothiazide daily. -Recheck blood pressure in 2 weeks. If still elevated, plan to add amlodipine. Cirrhosis Patient reports intermittent bloating and weight fluctuations, but no ascites on examination. -Continue monitoring. -sees GI later this month. Urinary Symptoms Patient reports occasional burning during urination and spotting of blood on toilet paper. Urinalysis showed proteinuria. -Send urine for culture. -Advise patient to avoid NSAIDs. Lower abdominal pain (Primary) Fatigue, unspecified type - CBC WITH WBC DIFFERENTIAL AND ANEMIA REFLEX WORKUP; Future; Expected date: 06/22/2024 - TSH WITH FREE T4 IF INDICATED; Future; Expected date: 06/22/2024 Other cirrhosis of liver (HCC) - COMPREHENSIVE METABOLIC PANEL; Future; Expected date: 06/22/2024 - PT INR; Future; Expected date: 06/22/2024 Leg swelling - hydroCHLOROthiazide 25 MG Oral Tablet (Hydrodiuril); Take 1 Tablet by mouth in the morning. HTN, goal below 140/90 - hydroCHLOROthiazide 25 MG Oral Tablet (Hydrodiuril); Take 1 Tablet by mouth in the morning. Need for prophylactic vaccination and inoculation against influenza - INFLUENZA VAC, TRIVALENT, (IIV3), PF, 0.5 ML (FLUZONE) Hematuria, unspecified type - URINALYSIS, POINT OF CARE Dysuria - CULTURE, URINE, QUANTITATIVE; Future; Expected date: 06/22/2024 - CULTURE, URINE, QUANTITATIVE Wrap-Up Follow Up: Return in 6 months (on 12/20/2024) for Print labs to take to [facility], BP Check in 2 Weeks, Return with Vincent. | For: Print labs to take to [facility], BP Check in 2 Weeks, Return with Vincent Time: I spent a total of 30-39 minutes (exact time 30 mins) on the date of service in preparation, delivery, and documentation of the care provided to Kailyn Melton excluding any time spent in the performance of separately billed services. Text in this note was generated using an [employer] documentation service. I discussed the use of a device to record and summarize our discussion today. All persons present during the encounter consented to its use. * Lashay Nunn MED ASSIST - 06/22/2024 8:36 AM EST PRE - ADMINISTRATION DOCUMENTATION Are you experiencing any cold symptoms or fever? No Have you had Guillain-[place] Syndrome (an illness that causes paralysis) within the last 6 weeks? No Have you had the flu shot in the past? YES Have you ever had a reaction to the flu shot? No IRWIN Hill, 06/22/2024 8:36 AM Immunization Administration Documentation Time Out Procedure Performed: Yes Patient Identified (Ask Name/Date of ): Yes Does the patient have a fever greater than 101 degrees today? No Patient allergic to latex? No VFC Stock: No Immunization(s) verified: Yes, Immunization Name: Flu, VIS Sheet(s) given: Yes Verified Side and Site: Yes Verified Shot(s) with Parent(s)/Patient: Yes documented in this encounter Plan of Treatment Upcoming Encounters Date Type Department Care Team (Late st Contact Info) Description 07/14/2024 9:30 AM EST Office Visit Gastroenterology, [facility] [address] [address] Anastasia Mendez CRNP [address] [place] [address] 07/19/2024 10:30 AM EST Office Visit Interventional Pain Center, [facility] [address] [address] Jeanie Mckeon PA-C [address] [place] [address] 10/13/2024 10:00 AM EST Office Visit Rheumatology [address] [place] [phone] Leidy Nunn CRNP [address] [place] [address] [place] [address] 12/20/2024 10:00 AM EDT Office Visit Family Practice [facility] [address] [address] Bruna Kaur MD [address] [place] [address] Pending Results Name Type Priority Associated Diagnoses Date /Time CULTURE, URINE, QUANTITATIVE Lab Routine Dysuria 06/22/2024 9:30 AM EST Scheduled Orders Name Type Priority Associated Diagnoses Orde r Schedule CBC WITH WBC DIFFERENTIAL AND ANEMIA REFLEX WORKUP Lab Routine Fatigue, unspecified type Expected: 06/22/2024, Expires: 06/22/2025 COMPREHENSIVE METABOLIC PANEL Lab Routine Other cirrhosis of liver (HCC) Expected: 06/22/2024, Expires: 06/22/2025 TSH WITH FREE T4 IF INDICATED Lab Routine Fatigue, unspecified type Expected: 06/22/2024, Expires: 06/22/2025 CULTURE, URINE, QUANTITATIVE Lab Routine Dysuria Expected: 06/22/2024, Expires: 06/22/2025 PT INR Lab Routine Other cirrhosis of liver (HCC) Expected: 06/22/2024 (Approximate), Expires: 06/22/2025 Scheduled Procedures Name Priority Associated Diagnoses Date/Ti [...] Depression Screening 10/22/2023 10/21/2022 GFR 09/24/2024 09/24/2023, 0 12/2022, 05/12/2023, Additional history exists HbA1c 09/24/2024 09/24/2023, 0 12/2022, 11/03/2022, Additional history exists Mammogram 10/06/2024 10/06/2023, 12/2022, 08/19/2021, Additional history exists Albumin/Creatinine Ratio 09/24/2026 09/24/2023, 0 12/2022 Pneumococcal Vaccine: Pediatrics (0 to 5 [...] this encounter Medical Devices Implanted Type Area Refinery Operator Device Identifier Shelf Expiration Date Model / Serial / Lot Hemostatic Clip Res 235cm - [id number] Implanted:Qty: 2 on 11/17/2023 by Zakia Mathur DO at ENDOSCOPY [facility] [employer] : ENDOSCOPY 04/12/2026 [id number] / / documented as of this encounter Procedures Procedure Name Priority Date/Time Associated Diagnosis Comments URINALYSIS, POINT OF CARE Routine 06/22/2024 8:45 AM EST Hematuria, unspecified type documented in this encounter Results * (ABNORMAL) URINALYSIS, POINT OF CARE (06/22/2024 8:45 AM EST) Color, Urine Judy(A) Light Yellow, Yellow 06/22/2024 8:48 AM EST [facility] Clarity, Urine Cloudy(A) Clear 06/22/2024 8:48 AM EST [facility] Glucose, Urine Negative Negative mg/dL 06/22/2024 8:48 AM EST [facility] Bilirubin, Urine Negative Negative 06/22/2024 8:48 AM EST [facility] Ketone, Urine Negative Negative mg/dL 06/22/2024 8:48 AM EST [facility] Specific Lyle, Urine 1.025 1.003 - 1.030 06/22/2024 8:48 AM EST [facility] Blood, Urine Negative Negative 06/22/2024 8:48 AM EST [facility] pH, Urine 6.0 5.0, 5.5, 6.0, 6.5, 7.0, 7.5 units 06/22/2024 8:48 AM EST [facility] Protein, Urine 30(A) Negative mg/dL 06/22/2024 8:48 AM EST [facility] Urobilinogen, Urine 2.0(A) 0.2, 1.0 mg/dL 06/22/2024 8:48 AM EST [facility] Nitrite, Urine Negative Negative 06/22/2024 8:48 AM EST [facility] Esterase, Urine Negative Negative 06/22/2024 8:48 AM EST [facility] Urine 06/22/2024 8:45 AM EST 06/22/2024 8:48 AM EST Bruna Kaur MD LAB POINT OF C ARE TEST DOCKED DEVICE UNSOLICITED RESULTS [facility] [address] [place] [address] documented in this encounter Visit Diagnoses Diagnosis Lower abdominal pain- Primary Abdominal pain, other specified site Fatigue, unspecified type Other cirrhosis of liver (HCC) Leg swelling Swelling of limb HTN, goal below 140/90 Unspecified essential hypertension Need for prophylactic vaccination and inoculation against influenza Hematuria, unspecified type Dysuria documented in this encounter Care Teams Dental Assistant Medical Assistant Relationship Specialty Start Date End Date Bruna Kaur MD [address] [place] [phone] PCP - General Internal Medicine 06/03/21 documented as of this encounter"
--- OUTSIDE RECORDS SUMMARY | 2024-10-09 19:53 | External Medical Summary | Summary of Care ---
Author Name Unknown Organization [facility] Address [address] [facility] [place] [address] Phone [phone] Care Team Providers Care [employer] Mill[employer] Name Role Phone Bruna Kaur MD Primary Care Provider Encounter Details Date Type Department Care Team (Late st Contact Info) Description 07/20/2024 Telephone Gastroenterology, [facility] [address] [place] [address] Anastasia Mendez CRNP [address] [place] [address] Allergies Active Allergy Reactions Criticality Noted Date Comments Sulfamethoxazole-Trimethopr im 08/07/2019 Naproxen Nausea/vomiting High 02/20/2002 Other reaction(s): nausea Naproxen Sodium Medium 12/21/2022 Sulfamethoxazole High 03/14/2020 Trimethoprim High 03/14/2020 documented as of this encounter (statuses as of 07/20/2024) Medications Acetaminophen Extra Strength 500 MG Oral [...] as of this encounter (statuses as of 07/20/2024) Active Problems Problem Noted Date Diagnosed Date [...] as of this encounter (statuses as of 07/20/2024) Resolved Problems Problem Noted Date Diagnosed Date [...] as of this encounter (statuses as of 07/20/2024) Immunizations Name Administration Dates Next Due COVID-19 [...] 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 Pancreas lesion 1cm, previously 6mm on EUS in 2021. Numerous lymph nodes on upper abd. LFTs: Tbili 1.7, AST 67, ALT 41, Alk phos 239. GI schedulers - pls arrange repeat EUS ESTHER Juarez documented in this encounter Plan of Treatment Upcoming Encounters Date Type Department Care Team (Latest Contact Info) Description 08/28/2024 1:00 PM EST Hospital Encounter ENDO [facility], Endoscopy Room [facility] [address] [place] [phone] Sunni Barrios MD [address] [place] [address] 08/28/2024 1:00 PM EST - 08/28/2024 1:45 PM EST Surgery ENDO [facility], Endoscopy Room [facility] [address] [place] [phone] Sunni Barrios MD [address] [place] [address] ESOPHAGOGASTRODUODENOSCOPY (EGD), FLEXIBLE, TRANSORAL, DIAGNOSTIC 10/13/2024 10:00 AM EST Office Visit [address] [place] [phone] Leidy Nunn CRNP [address] [place] [address] [place] [address] 11/09/2024 10:30 AM EDT Office Visit Gastroenterology , [facility] [address] [place] [address] Anastasia Mendez CRNP [address] [place] [address] 12/20/2024 10:00 AM EDT Office Visit Family Practice [facility] [address] [place] [address] Bruna Kaur MD [address] [place] [address] Scheduled Procedures Name Priority Associated Diagnoses Date/Ti in ESOPHAGOGASTRODUODENOSCOPY ( EGD), FLEXIBLE, TRANSORAL, DIAGNOSTIC IPMN (intraductal papillary mucinous neoplasm) 08/28/2024 1:00 PM EST ESOPHAGOGASTRODUODENOSCOPY ( EGD), FLEXIBLE, TRANSORAL, ENDOSCOPIC ULTRASOUND IPMN (intraductal papillary mucinous neoplasm) 08/28/2024 1:00 PM EST COLONOSCOPY FLEXIBLE PROXIMA L DIAGNOSTIC Recall [...] this encounter Medical Devices Implanted Type Area Pony Edger Device Identifier Shelf Expiration Date Model / Serial / Lot Hemostatic Clip Res 235cm - [id number] Implanted:Qty: 2 on 11/17/2023 by Zakia Mathur DO at ENDOSCOPY [facility] [employer] : ENDOSCOPY 04/12/2026 [id number] / / documented as of this encounter Care Teams [employer] Relationship Specialty Start Date End Date Bruna Kaur MD [address] [place] [address] PCP - General Internal Medicine 06/03/21 documented as of this encounter
--- OUTSIDE RECORDS SUMMARY | 2024-10-09 19:53 | External Medical Summary | Summary of Care ---
Author Name Unknown Organization [facility] Address [address] [facility] [place] [address] Phone [phone] Care Team Providers Care Processing Manager Name Role Phone Bruna Kaur MD Primary Care Provider Reason for Visit * Reason Onset Date Comments Med Request 07/24/2024 Encounter Details Date Type Department Care Team (Late st Contact Info) Description 07/24/2024 Telephone Family Practice [facility] [address] [place] [address] Bruna Kaur MD [address] [place] [address] Med Request Allergies Active Allergy Reactions Criticality Noted Date Comments Sulfamethoxazole-Trimethopr im 08/07/2019 Naproxen Nausea/vomiting High 02/20/2002 Other reaction(s): nausea Naproxen Sodium Medium 12/21/2022 Sulfamethoxazole High 03/14/2020 Trimethoprim High 03/14/2020 documented as of this encounter (statuses as of 07/24/2024) Medications Acetaminophen Extra Strength 500 MG Oral [...] as of this encounter (statuses as of 07/24/2024) Active Problems Problem Noted Date Diagnosed Date [...] as of this encounter (statuses as of 07/24/2024) Resolved Problems Problem Noted Date Diagnosed Date [...] as of this encounter (statuses as of 07/24/2024) Immunizations Name Administration Dates Next Due COVID-19 [...] 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 She didn't miner pick the zofran rx yet; said "they didn't have it when I went." Told her that was several weeks ago; recommended she try again. Pt agrees. Hasn't tried hyoscyamine. Recommended she try that for the cramping. Pt agrees. * Telephone Encounter - Julia Zacarias OSA - 07/24/2024 1:21 PM EST Patient calling in asking for a call back to discuss something for Lower stomach pain/nausea. Please call Patient. documented in this encounter Plan of Treatment Upcoming Encounters Date Type Department Care Team (Latest Contact Info) Description 08/28/2024 1:00 PM EST Hospital Encounter ENDO [facility], Endoscopy Room [facility] [address] [place] [phone] Sunni Barrios MD [address] [place] [address] 08/28/2024 1:00 PM EST - 08/28/2024 1:45 PM EST Surgery ENDO [facility], Endoscopy Room [facility] [address] [place] [phone] Sunni Barrios MD [address] [place] [address] ESOPHAGOGASTRODUODENOSCOPY (EGD), FLEXIBLE, TRANSORAL, DIAGNOSTIC 10/13/2024 10:00 AM EST Office Visit [address] [place] [phone] Leidy Nunn CRNP [address] [facility] [place] [address] 11/09/2024 10:30 AM EDT Office Visit Gastroenterology , Health system [address] [place] [address] Anastasia Mendez CRNP [address] [place] [address] 12/20/2024 10:00 AM EDT Office Visit Family Practice [facility] [address] [place] [address] Bruna Kaur MD [address] [place] [address] Scheduled Procedures Name Priority Associated Diagnoses Date/Ti me ESOPHAGOGASTRODUODENOSCOPY ( EGD), FLEXIBLE, TRANSORAL, DIAGNOSTIC IPMN [...] this encounter Medical Devices Implanted Type Area Hand Stonecutter Device Identifier Shelf Expiration Date Model / Serial / Lot Hemostatic Clip Res 235cm - [id number] Implanted:Qty: 2 on 11/17/2023 by Zakia Mathur DO at ENDOSCOPY [facility] [place] [employer] : ENDOSCOPY 04/12/2026 [id number] / / documented as of this encounter Care Teams Processing Manager Relationship Specialty Start Date End Date Bruna Kaur MD [address] [facility] [place] [address] PCP - General Internal Medicine 06/03/21 documented as of this encounter
--- OUTSIDE RECORDS SUMMARY | 2024-10-09 19:53 | External Medical Summary | Summary of Care ---
Author Name Unknown Organization [facility] Address [address] [facility] [place] [address] Phone [phone] Care Team Providers Care Service Desk Analyst Name Role Phone Bruna Kaur MD Primary Care Provider Reason for Referral * Precert (Within 24 hrs (call dept; emergent)) - Authorized Specialty Diagnoses / Procedures Referred By Contac t Referred To Contact Radiology Diagnoses Cirrhosis of liver without ascites, unspecified hepatic cirrhosis type (HCC) Procedures CT ABD/PELVIS W IV AND W ORAL CONTRAST Anastasia Mendez CRNP [address] [place] [address] Phone: tel: fax: Referral ID Status Reason Start Date Expiration Date V isits Requested Visits Authorized [id number] Authorized Precert 06/29/2024 12/26/2024 [id number] Reason for Visit * Reason Comments Follow Up Pt c/o lower abd du n/cramping with loose stools. Worse after meals. Denies mucus/bleeding or dark stools. 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 90 Tablet 3 12/17/19 24 Active hydroCHLOROthiazi de 25 MG Oral Tablet (Hydrodiuril)Yuli [...] Nausea. 30 Tablet 1 06/29/20 24 Active Dicyclomine HCl 10 MG Oral Capsule (Bentyl) Take 1 Capsule by mouth 2 times a day as needed for Cramping. 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 Not on file Not on file documented as of this encounter Last Filed Vital Signs Vital Sign Reading Time Taken Comments Blood Pressure 134/82 06/29/2024 10:25 AM EST Pulse 66 06/29/2024 10:25 AM EST Temperature 36.7 C (98 F) 06/29/2024 10:25 AM EST Respiratory Rate - - Oxygen Saturation - - Inhaled Oxygen Concentration - - Weight 74.4 kg (164 lb) 06/29/2024 10:25 AM EST Height 167.6 cm (5' 6") 06/29/2024 10:25 AM EST Body Mass Index 26.47 06/29/2024 10:25 AM EST documented in this encounter Progress Notes * Anastasia Mendez CRNP - 06/29/2024 10:40 AM EST DATE OF SERVICE: 06/29/24 REFERRING PHYSICIAN: ESTHER Quinn CC: Follow up HPI: 06/29/24: Patient reports that for the last 3 months she has been having lower abdominal, pelvic area pain, usually 5 minutes after eating. This will prompt her to have a bowel movement, reports thatstools are formed. However 30 minutes later she has diarrhea. Denies any rectal bleeding. Has some nausea, no vomiting. No fevers or chills. She denies any dysuria, hematuria. 09/15/2023 (saw ESTHER Jaeger): Ms. Kailyn Melton is a 63 year old female pt of Bruna Kaur MD with a hx of DDD, HTN, OA, GERD, Rh arthritis, Reflux esophagitis. She is followed by Anastasia Mendez for cirrhosis, most recently seen in Apr 2023. She says she missed an appt here in Aug because she was sick w a bad sinus infection. No blood in BMs, No yellow eyes or skin. Denies confusion orextreme fatigue. Continuing to work in [employer] for [employer]. As far as GI symptoms, she has chronic constipation, bloating, rifting, gassiness and doesn't feel like she can eat, but is actually gaining weight. She passes a hard BM about every 3 days. She has a lot of upper and lower abdomen cramping. She was previously on "a little blue pill and would like to restart that." However, the only small typically blue capsule/pill that I see on her med list is dicyclomine which would help w cramping but not w constipation. 05/04/23 : Patient was admitted at [facility] for septic arthritis in left hip back in October. She is currently having a lot of trouble with her fingers being stiff and her left shoulder feeling painful andhard to move. Has appointment with [facility] tomorrow and Rheumatology next week. She is taking Ibuprofen 800mg daily + Aleve 1 tab daily. She denies any chest pain, shortness of breath, abdominal pa in, nausea or vomiting. Bowels move regularly without rectal bleeding. Has some swelling on feet but none on lower legs. 07/20/22: Patient was recently hospitalized for chest pain symptoms. Currently following up with Cardiology for further workup. Going to have stress test done. She denies any chest pain or shortness of breath symptoms currently, lightheadedness or dizziness. She gets stomach upset once in a while when eating spicy foods and a little bit of a nausea sensation as well. Currently on famotidine but states that is not helping very much. Bowels moving regularly, no edema no signs of GI bleeding. 02/23/22: Patient denies any chest pain, shortness of breath, abdominal pain, distention, leg edema. She feels that taking dicyclomine helps with her abdominal cramping. 10/29/2021 GERD now well controlled, slight burning if she eats trigger foods, no dysphagia, burping, excessive chest pain, reurgtation. States she consumes lots of water, less sugar, and salt has given up sweet tea and all spicy foods due to acid reflex. Wasn't eating as much because of her GERD symptoms but has also noticed a weight loss around 15-20 lbs in a year around 10 lbs since Jun. Very active over 20K steps a day for her job. Denies any hemopytosis, black tarry stools, denies jaundice.Has not noticed any changes in her mental status, says she has always had trouble remembering and repeating things. No fullness, discomfort or bloating. Patient is concerned about results of her EUS as she received a letter and does not want to transplant. 07/30/21: Pt is still having c/o heartburn. On Pantoprazole but taking 80mg in AM, Famotidine 20mg BID. She said Misoprostol makes her stomach upset. She had stopped taking Carafate. Her Brito test did not indicate symptoms are related to acid reflux. She is also here to discuss abnormal MRI findings: fatty liver, splenomegaly, ? Nodularity of liver concerning for cirrhosis, IPMN on pancreas. Denies tobacco, + social ETOH use, no illicit drugs, tattoos, body piercing. No family hx of liver dz, iron/copper overload, AIH. Denies family hx of pancreas ca. Brother w hx of bone ca. She is asymptomatic for jaundice, abd pain, n/v, abd distension, leg edema. 05/28/21: Pt still having burning sensation in throat. Tried Carafate and Pantoprazole, still needsRolaids. Cannot swallow dry foods well. No n/v, loss of appetite or weight. 10/15/2020: Pt reports persistent reflux and "cooling sensation" up her throat. She denies dysphagia,n/v symptoms. Trial of Carafate not helpful. 08/30/20: Pt is a 60 year old female, w hx of gallstones, s/p cholecystectomy, bile leak, duodenal ulcers who is seen today for c/o heartburn, reflux and she noticed foul odor to breath x 3 weeks. Previously seen by ESTHER Way (see below) Tries to eat peppermints, chew gum to settlestomach down. Denies abd pain, n/v, bowel habit changes. Denies NSAIDs. Takes ASA 81mg nightly. Denies tobacco, ETOH, marijuana. Works at [employer] in [employer]. Denies sick contact. Last EGD 09/2019 normal. GI WORKUP: EGD 06/16/2021: - Z-line irregular, 38 cm from the incisors. LA class A esophagitis. Z line Biopsied. - Gastroesophageal flap valve classified as Hill Grade I (prominent fold, tight to endoscope). - Normal stomach. Biopsied. - Duodenal erosions. Ring at apex of bulb likely related to NSAIDs. - Biopsies were taken with a cold forceps for histology in the entire esophagus. - The BRITO pH capsule was positioned 32 cm from the incisors, which was 6 cm proximal to the GE junction. Exam suggestive of heavy NSAID use. Esophageal manometry: 06/16/2021: High Demeeter score, suggestive of acid reflux on lower esophagus EUS 10/08/2021: - There was no sign of significant pathology in the ampulla. - There was no sign of significant pathology in the common bile duct. - Evidence of a cholecystectomy. - There was abnormal echogenicity in the liver. Fine needle biopsy performed. - A 6 mm cyst was seen in the pancreatic body with no worrisome features likely a side branch IPMN. - There was no sign of significant pathology in the entire pancreas otherwise. - Endosonographic images of the left adrenal gland were unremarkable. - The celiac trunk was endosonographically normal. Recent EUS pathology: Left lobe liver, biopsy: Steatohepatitis with numerous ballooned hepatocytes Bridging fibrosis with focal nodularities, concerning for cirrhosis (stage 3-4) See note and microscopic description Past Medical History: Diagnosis Date DDD (degenerative [...] had abx and surgery by Dr Laughlin Family History Problem Relation Name Age of Onset Heart Disorder Mother 60 [place], survived Hypertension Mother Heart Disorder Father 65 heart attack at50s Hypertension Father Bone cancer Brother Hypertension Brother Stroke Grandfather (Paternal) in 80's Liver cancer Uncle (Unspecified) 63 Diabetes No significant family history Arthritis No significant family history Past Surgical History: Procedure Laterality Date COLONOSCOPY, DIAGNOSTIC (RECTUM) 05/17/2013 COLONOSCOPY FLEXIBLE PROXIMAL DIAGNOSTIC performed by Sergio Davalos MD at ENDOSCOPY [facility] COLONOSCOPY, DIAGNOSTIC (RECTUM) 11/17/2023 biopsies show adenomatous, hyperplastic polyps/recall 5 years/COLONOSCOPY FLEXIBLE PROXIMAL DIAGNOSTIC performed by Zakia Mathur DO at ENDOSCOPY [facility] EGD, FLEXIBLE, DIAGNOSTIC 08/20/2016 normal/ESOPHAGOGASTRODUODENOSCOPY (EGD), FLEXIBLE, TRANSORAL, DIAGNOSTIC performed by Sergio Davalos MD at ENDOSCOPY [facility] EGD, FLEXIBLE, DIAGNOSTIC 10/29/2017 inflammatory changes, duodenal ulcer, repeat 3 mo/[facility] EGD, FLEXIBLE, DIAGNOSTIC 02/03/2018 mild inflammatory changes/[facility] EGD, FLEXIBLE, DIAGNOSTIC 10/06/2019 normal/biopsies normal/ESOPHAGOGASTRODUODENOSCOPY (EGD), FLEXIBLE, TRANSORAL, DIAGNOSTIC performed by Sergio Davalos MD at ENDOSCOPY [facility] EGD, FLEXIBLE, DIAGNOSTIC N/A 06/16/2021 duodenal erosions, ring at apex of bulb/BRITO pH capsule positioned/biopsies show inflammation 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/recall 3 years/ESOPHAGOGASTRODUODENOSCOPY (EGD), FLEXIBLE, TRANSORAL, DIAGNOSTIC performed by Bridger Harris MD at ENDOSCOPY [facility] EGD, FLEXIBLE, DIAGNOSTIC 11/17/2023 grade I esophageal varices/portal hypertensive gastropathy/repeat 1 year/ESOPHAGOGASTRODUODENOSCOPY(EGD), FLEXIBLE, TRANSORAL, DIAGNOSTIC performed by Zakia Mathur DO at ENDOSCOPY [facility] EGD, W/ENDOSCOPIC US 02/12/2014 fatty liver, mild gatric & duodenal inflammation/ESOPHAGOGASTRODUODENOSCOPY (EGD), FLEXIBLE, TRANSORAL, ENDOSCOPIC ULTRASOUND performed by Gladis Hernandez DO at ENDOSCOPY [facility] EGD, W/ENDOSCOPIC US 10/08/2021 Steatohepatitis (fatty liver) with severe fibrosis concerning for cirrhosis / ESOPHAGOGASTRODUODENOSCOPY (EGD), FLEXIBLE, TRANSORAL, ENDOSCOPIC ULTRASOUND performed by Sunni Barrios MD at ENDOSCOPY [facility] ERCP 09/17/2017 bile leak, stent placed, repeat 1 mo / [facility] ERCP 10/29/2017 biliary sludge, stent removed / [facility] ESOPH FUNCT/REFLUX TEST,MUCOSAL PH N/A 06/16/2021 GASTRO REFLUX TEST WITH MUCOSAL TELEMETRY PH ELECTRODE performed by Bridger Harris MD at ENDOSCOPY [facility] LAPAROSCOPY; CHOLECYSTECTOMY 09/15/2017 09/15/2017 laparoscopic cholecystectomy - [facility] DR. Rodriguez REMOVAL OF APPENDIX 12/23/2012 Appendectomy 12/23/12 Dr. Haines at [facility] Vendor Management Associate Jacek Beltran PA-C TOTAL ABD HYSTERECTOMY W/WO REMOVAL OF TUBE(S) 1986 age 27 Social History Tobacco Use Smoking status: Former Current packs/day: 0.00 Types: Cigarettes Quit date: 08/24/1982 Years since quittin.8 Smokeless tobacco: Never Tobacco comments: Pt was just a social smoker Vaping Use Vaping status: Never Used Substance Use Topics Alcohol use: Not Currently Comment: none since 2019 Drug use: No Review of patient's allergies indicates: Allergen Reactions Naproxen Nausea/vomiting Other reaction(s): nausea Sulfamethoxazole Trimethoprim Naproxen Sodium Bactrim [Sulfamethoxazole-Trimethoprim] Current Outpatient Medications Medication Sig Dispense Refill Acetaminophen Extra Strength 500 MG Oral Tablet Multivitamin Women 50+ Oral Tablet Take by mouth daily. Aspirin 81 MG Oral Tablet Delayed Release Take 1 Tablet by mouth in the morning and 1 Tablet beforebedtime. Omeprazole 20 MG Oral Capsule Delayed Release (PriLOSEC) TAKE 1 CAPSULE BY MOUTH EVERY MORNING 30 Capsule 5 Atorvastatin Calcium 20 MG Oral Tablet (Lipitor) Take 1 Tablet by mouth in the morning. In the morning.. 90 Tablet 3 Losartan Potassium 100 MG Oral Tablet (Cozaar) Take 1 Tablet by mouth in the morning. 90 Tablet 3 amLODIPine Besylate 5 MG Oral Tablet (Norvasc) Take 1 Tablet by mouth daily. 90 Tablet 3 hydroCHLOROthiazide 25 MG Oral [...] as needed for Nausea. 30 Tablet 1 tiZANidine HCl 4 MG Oral Tablet (Zanaflex) Take 1 Tablet by mouth every 8 hours as needed for Muscle spasms. 30 Tablet 1 Zoster Vac Recomb Adjuvanted 50 MCG/0.5ML Intramuscular Suspension Reconstituted (Shingrix) Inject 0.5 mL into a large muscle now and repeat dose in 60 to 180 days 1 Each 1 Famotidine 20 MG Oral Tablet (Pepcid) (Patient not taking: Reported on 06/29/2024) No current facility-administered medications for this visit. REVIEW OF SYSTEMS: See HPI above; All other findings negative. EXAM: Filed Vitals: 06/29/24 1025 BP: 134/82 Pulse: 66 Temp: 36.7 C (98 F) Weight: 74.4 kg (164 lb) Height: 1.676 m (5' 6") GENERAL: Well developed and well nourished in no acute distress. SKIN: No rashes, ulcers, jaundice or spider angiomata. HEENT: Normocephalic, sclera clear. NECK: Supple, trachea midline, no JVD LUNGS: Clear to auscultation bilaterally, no respiratory distress or accessory muscles used. HEART: Regular rate & rhythm, no murmurs and no gallops. ABDOMEN: Normal bowel sounds, soft and TTP epigastric, mid lower abd. EXTREMITIES: No palmar erythema, no ankle edema, no skin discoloration, no clubbing, no cyanosis. NEURO: No lateralizing findings. Sensory/Motor grossly normal. ASSESSMENT AND PLAN: 64 year old female with history of gallstones s/p cholecystectomy, complicatedby bile leak s/p ERCP w stent placement, duodenal ulcer; currently seen for follow up of: 1. EGD findings of ? Gardner's esophagus, esophagitis, NSAIDs induced duodenal erosions. Brito study showed heartburn symptoms not correlated with GERD. Last EGD in 2023 - PHG, Grade 1 varices - Continue Omeprazole 20mg daily - GERD lifestyle and dietary changes discussed - Avoid NSAIDs, ETOH - F/U EGD in 2024 2. EUS 10/08/2020 showed Fibrosis stage 3-4 concerning for Cirrhosis, + steatohepatitis (hx of fattyliver, prediabetic (A1C 6.3%), hx of dyslipidemia on statin, family hx of heart diseases). Need to update MELD labs - No APAP >2g daily if needed, avoid ETOH - Check Hep a and b immunities -> not immune, vaccinations for both completed - Advised lifestyle modifications w dietary changes, exercise for healthy weight loss (at least 10%body weight), tight control of blood sugar, cholesterol especially triglyceride levels, maintain healthy BP. - MELD labs q3-6months - HCC screening [id number] (u/s/MRI; AFP) - Washing And Screening Plant Supervisor to manage Arava dosing 3. Abd pain: ? Constipation related. Was prescribed Amitiza however did not use this because it wastoo costly, unsure she started lactulose. - Hyoscyamine 0.125mg TID prn cramping/pain - CT abd/pelvis 4. IPMN pancreas <1cm: - Ordered CT abd/pelvis for abd pain symptoms, r/o HCC, IPMN re-eval - ED for emergencies - Please call with any questions or concerns ESTHER Juarez narinder Gastroenterology, [facility] documented in this encounter Nursing Notes * Milady Muir CMA - 06/29/2024 10:25 AM EST Chief Complaint Patient presents with Follow Up Pt c/o lower abd pain/cramping with loose stools. Worse after meals. Denies mucus/bleeding or dark stools. documented in this encounter Plan of Treatment Upcoming Encounters Date Type Department Care Team (Late st Contact Info) Description 07/04/2024 3:15 PM EST Imaging Radiology [facility] [facility] [address] [place] [address] 07/19/2024 10:30 AM EST Office Visit Interventional Pain Center, [facility] [address] [place] [address] Jeanie Mckeon PA-C [address] [place] [address] 10/13/2024 10:00 AM EST Office Visit Rheumatology [address] [place] [phone] Leidy Nunn CRNP [address] [place] [address] [place] [address] 11/09/2024 10:30 AM EDT Office Visit Gastroenterology, [facility] [address] [place] [address] Anastasia Mendez CRNP [address] [place] [address] 12/20/2024 10:00 AM EDT Office Visit [facility] [address] [place] [address] Bruna Kaur MD [address] [place] [address] Scheduled Orders Name Type Priority Associated Diagnoses Orde r Schedule CT ABD/PELVIS W IV AND W ORAL CONTRAST Medical Imaging STAT Cirrhosis of liver without ascites, unspecified hepatic cirrhosis type (HCC) Ordered: 06/29/2024 HEPATIC FUNCTION PANEL Lab Routine Cirrhosis of liver without ascites, unspecified hepatic cirrhosis type (HCC) Ordered: 06/29/2024 ALPHA-FETOPROTEIN TUMOR MARKER Lab Routine Cirrhosis of liver without ascites, unspecified hepatic cirrhosis type (HCC) Expected: 06/29/2024, Expires: 06/29/2025 Scheduled Procedures Name Priority Associated Diagnoses Date/Ti [...] this encounter Medical Devices Implanted Type Area Sales Support Engineer Device Identifier Shelf Expiration Date Model / Serial / Lot Hemostatic Clip Res 235cm - [id number] Implanted:Qty: 2 on 11/17/2023 by Zakia Mathur DO at ENDOSCOPY [facility] : ENDOSCOPY 04/12/2026 [id number] / / documented as of this encounter Visit Diagnoses Diagnosis Cirrhosis of liver without ascites, unspecified hepatic cirrhosis type (HCC)- Primary Abdominal pain, generalized IPMN (intraductal papillary mucinous neoplasm) Neoplasm of unspecified nature of digestive system 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
--- OUTSIDE RECORDS SUMMARY | 2024-10-09 19:53 | External Medical Summary | Summary of Care ---
Author Name Unknown Organization [facility] Address [address] [facility] [address] Phone [phone] Care Team Providers Care Fruit Distributor Name Role Phone Bruna Kaur MD Primary Care Provider Reason for Visit * Reason Onset Date Comments Advice 06/27/2024 Encounter Details Date Type Department Care Team (Late st Contact Info) Description 06/27/2024 Telephone Family Practice [facility] [address] [place] [address] Bruna Kaur MD [address] [place] [...] the morning. 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 * Telephone Encounter - Ann Marie Booker [...] Description 07/04/2024 3:15 PM EST Imaging Radiology [facility] 1st Floor, [place] [address] [place] [address] 07/19/2024 10:30 AM EST Office Visit Interventional Pain Center, [facility] [address] [facility] [place] [address] Jeanie Mckeon PA-C [address] [place] [address] 10/13/2024 10:00 AM EST Office Visit Rheumatology [address] [place] [phone] Leidy Nunn CRNP [address] [place] [address] [place] [address] 11/09/2024 10:30 AM EDT Office Visit Gastroenterology, [facility] [address] [facility] [place] [address] Anastasia Mendez CRNP [address] [place] [address] 12/20/2024 10:00 AM EDT Office Visit Family [facility] [address] [place] [address] Bruna Kaur MD [address] [place] [address] Scheduled Procedures Name Priority Associated Diagnoses Date/Ti [...] this encounter Medical Devices Implanted Type Area Critical Care Nurse Practitioner Device Identifier Shelf Expiration Date Model / Serial / Lot Hemostatic Clip Res 235cm - [id number] Implanted:Qty: 2 on 11/17/2023 by Zakia Mathur DO at ENDOSCOPY [facility] : ENDOSCOPY 04/12/2026 [id number] / / documented as of this encounter Care Teams Fruit Distributor Relationship Specialty Start Date End Date Bruna Kaur MD [address] [place] [address] PCP - General Internal Medicine 06/03/21 documented as of this encounter
--- OUTSIDE RECORDS SUMMARY | 2024-10-09 19:53 | External Medical Summary ---
Author Name Unknown Address Unknown Organization K0G:[facility] [address] [place] [address] Laboratory Report Ordering Provider Test Date Status DONALD KIRKPATRICK 06/22/2024 08:45:00 Final Observation Date Value Abnormality Reference (Units ) Status Color of Urine by Auto 06/22/2024 08:45:00 Judy Abnormal Light Yellow, Yellow Final Clarity, Urine 06/22/2024 08:45:00 Cloudy Abnormal Clear Final Glucose [Mass/volume] in Urine by Automated test strip 06/22/2024 08:45:00 Negative Negative (mg/dL) Final Bilirubin.total [Presence] in Urine by Automated test strip 06/22/2024 08:45:00 Negative Negative Final Ketones [Mass/volume] in Urine by Automated test strip 06/22/2024 08:45:00 Negative Negative (mg/dL) Final Specific gravity, Urine 06/22/2024 08:45:00 1.025 1.003-1.030 Final Hemoglobin [Presence] in Urine by Automated test strip 06/22/2024 08:45:00 Negative Negative Final pH, Urine 06/22/2024 08:45:00 6.0 5.0, 5.5, 6.0, 6.5, 7.0, 7.5 (units) Final Protein [Mass/volume] in Urine by Automated test strip 06/22/2024 08:45:00 30 Abnormal Negative (mg/dL) Final Urobilinogen, Urine 06/22/2024 08:45:00 2.0 Abnormal 0.2, 1.0 (mg/dL) Final Nitrite [Presence] in Urine by Automated test strip 06/22/2024 08:45:00 Negative Negative Final Leukocyte esterase [Presence] in Urine by Automated test strip 06/22/2024 08:45:00 Negative Negative Final Performing Location [facility] [address] [place] [address]
--- OUTSIDE RECORDS SUMMARY | 2024-10-09 19:53 | External Medical Summary | Summary of Care ---
Author Name Unknown Organization [facility] Address [address] [place] [address] Phone [phone] Care Team Providers Care Plaster Machine Tender Name Role Phone Bruna Kaur MD Primary Care Provider Reason for Visit * Reason Comments Follow Up Pt c/o lower abd du n/cramping with loose stools. Worse after meals. Denies mucus/bleeding or dark stools. 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 She is followed by Anastasia Aguilar for cirrhosis, most recently seen in Apr 2023. She says she missed an appt here in Aug because she was sick w a bad sinus infection. No blood in BMs, No yellow eyes or skin. Denies confusion orextreme fatigue. Continuing to work in [employer] for [employer]. As far as GI symptoms, she has [...] constipation. 05/04/23 : Patient was admitted at [facility] for septic arthritis in left hip back in October. She is currently having a lot of trouble with her fingers being stiff and her left shoulder feeling painful andhard to move. Has appointment with Family med tomorrow and Rheumatology next week. She is [...] nightly. Denies tobacco, ETOH, marijuana. Works at [employer] in [place]. Denies sick contact. Last EGD [...] Age of Onset Heart Disorder Mother 60 [place], survived Hypertension Mother Heart Disorder Father 65 heart attack at50s Hypertension Father Bone cancer Brother Hypertension Brother Stroke Grandfather (Paternal) in 80's Liver cancer Uncle (Unspecified) 63 Diabetes No significant family history Arthritis No significant family history Past Surgical History: Procedure Laterality Date COLONOSCOPY, DIAGNOSTIC (RECTUM) 05/17/2013 COLONOSCOPY FLEXIBLE PROXIMAL DIAGNOSTIC performed by Sergio Davalos MD at [facility]COPY [facility] COLONOSCOPY, DIAGNOSTIC (RECTUM) 11/17/2023 biopsies show adenomatous, hyperplastic polyps/recall 5 years/COLONOSCOPY FLEXIBLE PROXIMAL DIAGNOSTIC performed by Zakia Mathur DO at ENDOSCOPY [facility] EGD, FLEXIBLE, DIAGNOSTIC 08/20/2016 normal/ESOPHAGOGASTRODUODENOSCOPY (EGD), FLEXIBLE, TRANSORAL, DIAGNOSTIC performed by Sergio Davalos MD at ENDOSCOPY [facility] EGD, FLEXIBLE, DIAGNOSTIC 10/29/2017 inflammatory changes, duodenal ulcer, repeat 3 mo/[facility] EGD, FLEXIBLE, DIAGNOSTIC 02/03/2018 mild inflammatory changes/[facility] EGD, FLEXIBLE, DIAGNOSTIC 10/06/2019 normal/biopsies normal/ESOPHAGOGASTRODUODENOSCOPY (EGD), FLEXIBLE, TRANSORAL, DIAGNOSTIC performed by Sergio Davalos MD at ENDOSCOPY [facility] EGD, FLEXIBLE, DIAGNOSTIC N/A 06/16/2021 duodenal erosions, ring at apex of bulb/BRITO pH capsule positioned/biopsies show inflammation 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/recall 3 years/ESOPHAGOGASTRODUODENOSCOPY (EGD), FLEXIBLE, TRANSORAL, DIAGNOSTIC performed by Bridger Harris MD at ENDOSCOPY [facility] EGD, FLEXIBLE, DIAGNOSTIC 11/17/2023 grade I esophageal varices/portal hypertensive gastropathy/repeat 1 year/ESOPHAGOGASTRODUODENOSCOPY(EGD), FLEXIBLE, TRANSORAL, DIAGNOSTIC performed by Zakia Mathur DO at ENDOSCOPY [facility] EGD, W/ENDOSCOPIC US 02/12/2014 fatty liver, mild gatric & duodenal inflammation/ESOPHAGOGASTRODUODENOSCOPY (EGD), FLEXIBLE, TRANSORAL, ENDOSCOPIC ULTRASOUND performed by Gladis Hernandez DO at ENDOSCOPY [facility] EGD, W/ENDOSCOPIC US 10/08/2021 Steatohepatitis (fatty liver) with severe fibrosis concerning for cirrhosis / ESOPHAGOGASTRODUODENOSCOPY (EGD), FLEXIBLE, TRANSORAL, ENDOSCOPIC ULTRASOUND performed by Sunni Barrios MD at ENDOSCOPY [facility] ERCP 09/17/2017 bile leak, stent placed, repeat 1 mo / [facility] ERCP 10/29/2017 biliary sludge, stent removed / [facility] ESOPH FUNCT/REFLUX TEST,MUCOSAL PH N/A 06/16/2021 GASTRO REFLUX TEST WITH MUCOSAL TELEMETRY PH ELECTRODE performed by Bridger Harris MD at ENDOSCOPY [facility] LAPAROSCOPY; CHOLECYSTECTOMY 09/15/2017 09/15/2017 laparoscopic cholecystectomy - [facility] DR. Rodriguez REMOVAL OF APPENDIX 12/23/2012 Appendectomy 12/23/12 Dr. Haines at [facility] Door Tender Jacek Beltran PA-C TOTAL ABD HYSTERECTOMY W/WO [...] - MELD labs q3-6months - HCC screening [id number] (u/s/MRI; AFP) - Childbirth And Infant Care Teacher to manage Arava dosing 3. Abd pain: [...] with any questions or concerns ESTHER Juarez [facility] Gastroenterology, [facility] documented in this encounter Nursing Notes * Milady Muir CMA - 06/29/2024 10:25 AM EST Chief Complaint Patient presents with Follow Up Pt c/o lower abd pain/cramping with loose stools. Worse after meals. Denies mucus/bleeding or dark stools. documented in this encounter Miscellaneous Notes * Addendum Note - Anastasia Aguilar CRNP - 06/30/2024 3:37 PM ESTAddended by: ANASTASIA AGUILAR on: 06/30/2024 03:37 PM Modules accepted: Orders documented in this encounter Plan of Treatment Upcoming Encounters Date Type Department Care Team (Late st Contact Info) Description 07/04/2024 3:15 PM EST [facility] [address] [address] 07/19/2024 10:30 AM EST Office Visit Interventional Pain Center, [facility] [address] [place] [address] Jeanie Mckeon PA-C [address] [place] [address] 10/13/2024 10:00 AM EST Office Visit Rheumatology [address] [place] [phone] Leidy Nunn CRNP [address] [place] [address] [place] [address] 11/09/2024 10:30 AM EDT Office Visit Gastroenterology, [facility] [address] [place] [address] Anastasia Aguilar CRNP [address] [place] [address] 12/20/2024 10:00 AM EDT Office Visit Family Practice [facility] [address] [place] [address] Bruna Kaur MD [address] [place] [address] Scheduled Orders Name Type Priority Associated Diagnoses Orde r Schedule HEPATIC FUNCTION PANEL Lab Routine Cirrhosis of [...] Depression Screening 10/22/2023 10/21/2022 HbA1c 09/24/2024 09/24/2023, 0 12/2022, 11/03/2022, Additional [...] this encounter Medical Devices Implanted Type Area Gardening Supervisor Device Identifier Shelf Expiration Date Model / Serial / Lot Hemostatic Clip Res 235cm - [id number] Implanted:Qty: 2 on 11/17/2023 by Zakia Mathur DO at ENDOSCOPY [facility] : ENDOSCOPY 04/12/2026 [id number] / / documented as of this encounter Visit Diagnoses Diagnosis Cirrhosis of liver without ascites, unspecified hepatic cirrhosis type (HCC)- Primary Abdominal pain, generalized IPMN (intraductal papillary mucinous neoplasm) Neoplasm of unspecified nature of digestive system 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
--- OUTSIDE RECORDS SUMMARY | 2024-10-09 19:53 | External Medical Summary | Summary of Care ---
Author Name Unknown Organization [facility] Address [address] [facility] [place] [address] Phone [phone] Care Team Providers Care Card Placer Name Role Phone Bruna Kaur MD Primary Care Provider Encounter Details Date Type Department Care Team (Late st Contact Info) Description 07/11/2024 Orders Only Gastroenterology, [facility] [address] [place] [address] Anastasia Mendez CRNP [address] [place] [address] IPMN (intraductal papillary mucinous neoplasm)* Allergies Active Allergy Reactions Criticality Noted Date Comments Sulfamethoxazole-Trimethopr im 08/07/2019 Naproxen Nausea/vomiting High 02/20/2002 Other reaction(s): nausea Naproxen Sodium Medium 12/21/2022 Sulfamethoxazole High 03/14/2020 Trimethoprim High 03/14/2020 documented as of this encounter (statuses as of 07/11/2024) Medications Acetaminophen Extra Strength 500 MG Oral [...] as of this encounter (statuses as of 07/11/2024) Active Problems Problem Noted Date Diagnosed Date [...] as of this encounter (statuses as of 07/11/2024) Resolved Problems Problem Noted Date Diagnosed Date [...] as of this encounter (statuses as of 07/11/2024) Immunizations Name Administration Dates Next Due COVID-19 [...] 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 Not on file Not on file documented as of this encounter Plan of Treatment Upcoming Encounters Date Type Department Care Team (Late st Contact Info) Description 07/19/2024 10:30 AM EST Office Visit Interventional Pain Center, [facility] [address] [place] [address] Jeanie Mckeon PA-C [address] [place] [address] 10/13/2024 10:00 AM EST Office Visit Rheumatology [address] [place] [phone] Leidy Nunn CRNP [address] [place] [address] [place] [address] 11/09/2024 10:30 AM EDT Office Visit Gastroenterology, [facility] [address] [place] [address] Anastasia Mendez CRNP [address] [place] [address] 12/20/2024 10:00 AM EDT Office Visit Family [facility] [address] [place] [address] Bruna Kaur MD [address] [place] [address] Scheduled Orders Name Type Priority Associated Diagnoses Orde r Schedule US ENDOSCOPIC Medical Imaging Routine IPMN (intraductal papillary mucinous neoplasm) Ordered: 07/11/2024 Scheduled Procedures Name Priority Associated Diagnoses Date/Ti [...] 08/19/2021, Additional history exists GFR 06/22/2025 06/22/2024, 020 04/2024, 05/20/2023, Additional history exists Albumin/Creatinine Ratio [...] this encounter Medical Devices Implanted Type Area Desulphurizer Operator Device Identifier Shelf Expiration Date Model / Serial / Lot Hemostatic Clip Res 235cm - [id number] Implanted:Qty: 2 on 11/17/2023 by Zakia Mathur DO at [facility]COPY [facility] : ENDOSCOPY 04/12/2026 [id number] / / documented as of this encounter Visit Diagnoses Diagnosis IPMN (intraductal papillary mucinous neoplasm)- Primary Neoplasm of unspecified nature of digestive system documented in this encounter Care Teams Card Placer Relationship Specialty Start Date End Date Bruna Kaur MD [address] [place] [address] [place] [address] PCP - General Internal Medicine 06/03/21 documented as of this encounter
--- OUTSIDE RECORDS SUMMARY | 2024-10-09 19:53 | External Medical Summary | Summary of Care ---
Author Name Unknown Organization [facility] Address [address] [place] [address] Phone [phone] Care Team Providers Care Display Fabrication Supervisor Name Role Phone Bruna Kaur MD Primary Care Provider Encounter Details Date Type Department Care Team (Latest Contact Info) Description 10/30/2022 12:35 AM EDT - 10/30/2022 11:59 PM EDT Hospital Encounter Radiology Film File [address] [place] [address] Discharge Disposition: Home - Self Care Allergies Active Allergy Reactions Criticality Noted Date Comments Sulfamethoxazole-Trimethopr im 08/07/2019 Naproxen Nausea/vomiting High 02/20/2002 Other reaction(s): nausea Naproxen Sodium Medium 12/21/2022 Sulfamethoxazole High 03/14/2020 Trimethoprim High 03/14/2020 documented as of this encounter (statuses as of 07/08/2024) Medications Acetaminophen Extra Strength 500 MG Oral Tablet 08/31/2021 Acti ve documented as of this encounter (statuses as of 07/08/2024) Active Problems Problem Noted Date Diagnosed Date [...] as of this encounter (statuses as of 07/08/2024) Resolved Problems Problem Noted Date Diagnosed Date [...] as of this encounter (statuses as of 07/08/2024) Immunizations Name Administration Dates Next Due COVID-19 [...] 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 Not on file Not on file documented as of this encounter Plan of Treatment Upcoming Encounters Date Type Department Care Team (Late st Contact Info) Description 07/19/2024 10:30 AM EST Office Visit Interventional Pain Center, [facility] [address] [place] [address] Jeanie Mckeon PA-C [address] [place] [address] 10/13/2024 10:00 AM EST Office Visit Rheumatology [address] [place] [phone] Leidy Nunn CRNP [address] [facility] [place] [address] 11/09/2024 10:30 AM EDT Office Visit Gastroenterology, [facility] [address] [place] [address] Anastasia Mendez CRNP [address] [place] [address] 12/20/2024 10:00 AM EDT Office Visit Family [facility] [address] [place] [address] Bruna Kaur MD [address] [place] [address] Scheduled Procedures Name Priority Associated Diagnoses Date/Ti [...] this encounter Medical Devices Implanted Type Area Sausage Stringer Device Identifier Shelf Expiration Date Model / Serial / Lot Hemostatic Clip Res 235cm - [id number] Implanted:Qty: 2 on 11/17/2023 by Zakia Mathur DO at ENDOSCOPY [facility] : ENDOSCOPY 04/12/2026 [id number] / / documented as of this encounter Procedures Procedure Name Priority Date/Time Associated Diagnosis Comments RADIOLOGY EXAM - CT (IMAGES ONLY, NO REPORT) Routine 10/30/2022 12:35 AM EDT documented in this encounter Results * RADIOLOGY EXAM - CT (IMAGES ONLY, NO REPORT) (10/30/2022 12:35 AM EDT) 10/30/2022 12:3 1 AM EDT Narrative Scheduling, Silent - 07/07/2024 9:47 AM EST This is an imaging study not interpreted or resulted by a [facility] or [facility] contracted radiologist. us Bruna Kaur MD RAD CT Final Result documented in this encounter Care Teams Display Fabrication Supervisor Relationship Specialty Start Date End Date Bruna Kaur MD [address] [facility] [place] [address] PCP - General Internal Medicine 06/03/21 documented as of this encounter
--- OUTSIDE RECORDS SUMMARY | 2024-10-09 19:53 | External Medical Summary | Summary of Care ---
Author Name Unknown Organization [facility] Address [address] [facility] [place] [address] Phone [phone] Care Team Providers Care Deployment Specialist Name Role Phone Bruna Kaur MD Primary Care Provider Encounter Details Date Type Department Care Team (Late st Contact Info) Description 06/29/2024 Result Scan Unspecified Department Anastasia Mendez CRNP [address] [place] [address] <No scans attached> Allergies Active Allergy Reactions Criticality Noted Date Comments Sulfamethoxazole-Trimethopr im 08/07/2019 Naproxen Nausea/vomiting High 02/20/2002 Other reaction(s): nausea Naproxen Sodium Medium 12/21/2022 Sulfamethoxazole High 03/14/2020 Trimethoprim High 03/14/2020 documented as of this encounter (statuses as of 07/10/2024) Medications Acetaminophen Extra Strength 500 MG Oral [...] as of this encounter (statuses as of 07/10/2024) Active Problems Problem Noted Date Diagnosed Date [...] as of this encounter (statuses as of 07/10/2024) Resolved Problems Problem Noted Date Diagnosed Date [...] as of this encounter (statuses as of 07/10/2024) Immunizations Name Administration Dates Next Due COVID-19 [...] 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 on file Not on file documented as of this encounter Plan of Treatment Upcoming Encounters Date Type Department Care Team (Late st Contact Info) Description 07/19/2024 10:30 AM EST Office Visit Interventional Pain Center, [facility] [address] [place] [address] Jeanie Mckeon PA-C [address] [place] [address] 10/13/2024 10:00 AM EST Office Visit Rheumatology [address] [place] [phone] Leidy Nunn CRNP [address] [facility] [place] [address] 11/09/2024 10:30 AM EDT Office Visit Gastroenterology, [facility] [address] [place] [address] Anastasia Mendez CRNP [address] [place] [address] 12/20/2024 10:00 AM EDT Office Visit Family [facility] [address] [place] [address] Bruna Kaur MD [address] [place] [address] Scheduled Procedures Name Priority Associated Diagnoses Date/Ti [...] this encounter Medical Devices Implanted Type Area Shopper Device Identifier Shelf Expiration Date Model / Serial / Lot Hemostatic Clip Res 235cm - [id number] Implanted:Qty: 2 on 11/17/2023 by Zakia Mathur DO at [facility] : [facility]COPY 04/12/2026 [id number] / / documented as of this encounter Procedures Procedure Name Priority Date/Time Associated Diagnosis Comments OUTSIDE LAB RESULTS 06/29/2024 documented in this encounter Results * OUTSIDE LAB RESULTS (06/29/2024) 06/29/2024 An[facility]asia [facility] Final R esult documented in this encounter Care Teams Deployment Specialist Relationship Specialty Start Date End Date Bruna Kaur MD [address] [facility] [place] [address] PCP - General Internal Medicine 06/03/21 documented as of this encounter
--- OUTSIDE RECORDS SUMMARY | 2024-10-09 19:54 | External Medical Summary | Summary of Care ---
Author Name Unknown Organization [facility] Address [address] [address] Phone [phone] Care Team Providers Care Explosive Operator Bomb Name Role Phone Bruna Kaur MD Primary Care Provider Reason for Visit * Reason Onset Date Comments Advice 04/24/2024 advice Encounter Details Date Type Department Care Team (Late st Contact Info) Description 04/24/2024 Telephone Rheumatology [facility] [address] [place] [address] Leidy Nunn CRNP [address] [place] [address] Advice (advice) Allergies Active Allergy Reactions Criticality Noted Date Comments Sulfamethoxazole-Trimethopr im 08/07/2019 Naproxen Nausea/vomiting High 02/20/2002 Other reaction(s): nausea Naproxen Sodium Medium 12/21/2022 Sulfamethoxazole High 03/14/2020 Trimethoprim High 03/14/2020 documented as of this encounter (statuses as of 04/25/2024) Medications Medication Sig Dispensed Refills Start Date End Date Status Acetaminophen Extra Strength 500 MG Oral Tablet 08/31/2021 Active Fluticasone Propionate 50 MCG/ACT Nasal Suspension (Flonase)Indications :Acute maxillary sinusitis, recurrence not specified SPRAY 2 SPRAYS INTO EACH NOSTRIL EVERY DAY 16 mL 1 08/06/2022 Active tiZANidine HCl 4 MG Oral Tablet (Zanaflex)Indication s:Spasm of muscle Take 1 Tablet by mouth every 8 hours as needed for Muscle spasms. 30 Tablet 1 12/02/2022 Active Zoster Vac Recomb Adjuvanted 50 MCG/0.5ML Intramuscular Suspension Reconstituted (Shingrix)Indication s:Need for zoster vaccination Inject 0.5 mL into a large muscle now and repeat dose in 60 to 180 days 1 Each 1 12/02/2022 Active Additional Information Patient not taking.Reported on 02/11/2024 hydroCHLOROthiazide 25 MG Oral Tablet (Hydrodiuril)Indicat ions:Leg swelling,HTN, goal below 140/90 Take 1 Tablet by mouth in the morning. 90 Tablet 01/22/2023 Active predniSONE 5 MG Oral Tablet (Deltasone) Take 10mg daily for 4 days then 5mg daily 34 Tablet 2 03/25/2023 Active Benzonatate 200 MG Oral Capsule 03/18/2023 Active Cholecalciferol 1.25 MG (76526 UT) Oral Capsule 11/04/2022 Active Famotidine 20 MG Oral Tablet (Pepcid) Acti ve Dicyclomine HCl 10 MG Oral Capsule (Bentyl) Take 1 Capsule by mouth 2 times a day as needed for Cramping. 180 Capsule 4 05/31/2023 Active Lubiprostone 24 MCG Oral Capsule (Amitiza) Take 1 Capsule by mouth 2 times a day with morning and evening meals. 60 Capsule 5 09/15/2023 Active Lactulose Encephalopathy 10 GM/15ML Oral Solution (Enulose)Indications :Chronic constipation TAKE 30 ML BY MOUTH 1-3 TIMES A DAY TO AFFECT ONE BOWEL MOVEMENT PER DAY 240 mL 5 10/12/2023 Active Multivitamin Women 50+ Oral Tablet Take by mouth daily. Active Aspirin 81 MG Oral Tablet Delayed Release Take 1 Tablet by mouth in the morning and 1 Tablet before bedtime. Active Omeprazole 20 MG Oral Capsule Delayed Release (PriLOSEC)Indication s:Gastroesophageal reflux disease with esophagitis without hemorrhage TAKE 1 CAPSULE BY MOUTH EVERY MORNING 30 Capsule 5 12/10/2023 Active Atorvastatin Calcium 20 MG Oral Tablet (Lipitor)Indications :Dyslipidemia, goal LDL below 100 Take 1 Tablet by mouth in the morning. In the morning.. 90 Tablet 3 12/17/2023 Active Losartan Potassium 100 MG Oral Tablet (Cozaar)Indications: Hypertension goal BP (blood pressure) < 130/80 Take 1 Tablet by mouth in the morning. 90 Tablet 3 12/17/2023 Active amLODIPine Besylate 5 MG Oral Tablet (Norvasc)Indications :Hypertension goal BP (blood pressure) < 130/80 Take 1 Tablet by mouth daily. 90 Tablet 3 12/17/2023 Active documented as of this encounter (statuses as of 04/25/2024) Active Problems Problem Noted Date Diagnosed Date [...] 100 03/11/2012 HTN, goal below 140/90 12/26/2010 ADVANCE DIRECTIVE INFORMATION 07/27/2006 Overview: No, Advance Directive brochure given to patient. OA (osteoarthritis) of knee Overview: bilateral Reflux esophagitis DDD (degenerative disc disease), cervical documented as of this encounter (statuses as of 04/25/2024) Resolved Problems Problem Noted Date Diagnosed Date [...] 08/24/2008 Overview: ICD-10 update of inactive term NONE 03/14/2003 08/19/2011 documented as of this encounter (statuses as of 04/25/2024) Immunizations Name Administration Dates Next Due COVID-19 [...] encounter Miscellaneous Notes * Telephone Encounter - Charisma Koch LPN - 04/25/2024 2:20 PM EDT Message given to pt, verbalized understanding * Telephone Encounter - Leidy Nunn CRNP - 04/25/2024 12:38 PM EDT Please advise patient we can only give injections every 3 months and she is scheduled at the appropriate time 05/12/2024. Please advise patient she can use topical Voltaren gel, magnesium oil- spray,Tylenol and ibuprofen not exceeding recommended daily dose. * Telephone Encounter - Sandra Zepeda OSA - 04/24/2024 3:25 PM EDT [place] - Patient Related Communication Reason for Call: Pt is calling asking for a sooner appt due to having pain in both arms. Pt is asking if pt can shots in the arms for this pain. Please call and advise ETHAN Ricks documented in this encounter Plan of Treatment Upcoming Encounters Date Type Department Care Team (Late st Contact Info) Description 05/12/2024 11:30 AM EDT Office Visit Rheumatology [address] [place] [phone] Christian Santana PA-C [address] [place] [address] 07/14/2024 9:30 AM EST Office Visit Gastroenterology, [facility] [address] [place] [address] Anastasia Mendez CRNP [address] [place] [address] 10/13/2024 10:00 AM EST Office Visit Rheumatology [address] [place] [phone] Leidy Nunn CRNP [address] [facility] [place] [address] Scheduled Procedures Name Priority Associated Diagnoses Date/Ti me ESOPHAGOGASTRODUODENOSCOPY ( EGD), FLEXIBLE, TRANSORAL, DIAGNOSTIC Recall Gardner's esophagus Health Maintenance Due Date Last Done Comments HIV Screening 1977 Cologuard 2007 Sigmoidoscopy 2007 Zoster Vaccines (1 of 2) 2012 Fecal Occult Blood Test 08/10/2020 08/10/2019 Depression Screening 10/22/2023 10/21/2022 Influenza Vaccine (FLU shot) (#1) 2024 06/03/2022, 05/28/2021, 05/14/2020, Additional history exists GFR 09/24/2024 09/24/2023, 12/2022, 05/12/2023, Additional history exists HbA1c 09/24/2024 09/24/2023, 12/2022, 11/03/2022, Additional history exists Mammogram 10/06/2024 10/06/2023, 12/2022, 08/19/2021, Additional history exists Albumin/Creatinine Ratio 09/24/2026 09/24/2023, 12/2022 Pneumococcal Vaccine: Pediatrics (0 to 5 Years) and At-Risk Patients (6 to 64 Years) (3 of 3 - PPSV23 or PCV20) 2027 02/23/2020, 07/10/2019 Lipid Panel 12/23/2027 12/22/2022, 10/14, 05/05/2021, Additional history exists DTap/Tdap Vaccines (3 - Td or Tdap) 10/30/2031 10/29/2021, 06/05/2010, 05/16/2004 Colonoscopy 11/16/2033 11/17/2023, 10/2023, 05/17/2013, Additional history exists Colorectal Cancer Screening 11/16/2033 COVID-19 Vaccine Discontinued 10/08/2020, 09/06/2020 Hepatitis C Screening Completed 08/15/2021, 016 Hepatitis B Vaccine Completed 04/30/2022, 11/28/2021, 10/29/2021 HPV (Gardasil) Vaccine Aged Out No lo nger eligible based on patient's age to complete this topic MENINGOCOCCAL (MENACTRA/MENVEO) Aged Out No longer eligible based on patient's age to complete this topic documented as of this encounter Medical Devices Implanted Type Area Culinary Intern Device Identifier Shelf Expiration Date Model / Serial / Lot Hemostatic Clip Res 235cm - [id number] Implanted:Qty: 2 on 11/17/2023 by Zakia Mathur DO at ENDOSCOPY [facility] [employer] : ENDOSCOPY 04/12/2026 [id number] / / documented as of this encounter Care Teams Explosive Operator Bomb Relationship Specialty Start Date End Date Bruna Kaur MD [address] [place] [address] PCP - General Internal Medicine 06/03/21 documented as of this encounter
--- OUTSIDE RECORDS SUMMARY | 2024-10-09 19:54 | External Medical Summary | Summary of Care ---
Author Name Unknown Organization [facility] Address [address] [facility] [facility] [address] Phone [phone] Care Team Providers Care Bunch Trimmer Mold Name Role Phone Bruna Kaur MD Primary Care Provider Reason for Visit * Reason Comments Rheum Follow Up Recheck RA Encounter Details Date Type Department Care Team (Late st Contact Info) Description 05/12/2024 11:30 AM EDT Office Visit Rheumatology [address] [place] [phone] Christian Santana PA-C [address] [facility] [place] [address] Impingement syndrome of both shoulders*; Rheumatoid arthritis involving both hands with positive rheumatoid factor (HCC); DDD (degenerative disc disease), cervical Allergies Active Allergy Reactions Criticality Noted Date Comments Sulfamethoxazole-Trimethopr im 08/07/2019 Naproxen Nausea/vomiting High 02/20/2002 Other reaction(s): nausea Naproxen Sodium Medium 12/21/2022 Sulfamethoxazole High 03/14/2020 Trimethoprim High 03/14/2020 documented as of this encounter (statuses as of 05/12/2024) Medications Medication Sig Dispensed Refills Start Date End Date Status Acetaminophen Extra Strength 500 MG Oral Tablet 2 Active tiZANidine HCl 4 MG Oral Tablet (Zanaflex)Indicatio ns:Spasm of muscle Take 1 Tablet by mouth every 8 hours as needed for Muscle spasms. 30 Tablet 1 3 Active Additional Information Patient not taking.Reported on 05/12/2024 Zoster Vac Recomb Adjuvanted 50 MCG/0.5ML Intramuscular Suspension Reconstituted (Shingrix)Indicatio ns:Need for zoster vaccination Inject 0.5 mL into a large muscle now and repeat dose in 60 to 180 days 1 Each 1 3 Active hydroCHLOROthiazide 25 MG Oral Tablet (Hydrodiuril)Indica tions:Leg swelling,HTN, goal below 140/90 Take 1 Tablet by mouth in the morning. 90 Tablet 3 Active Additional Information Patient not taking.Reported on 05/12/2024 Famotidine 20 MG Oral Tablet (Pepcid) Active [...] mouth daily. 90 Tablet 3 4 Active Fluticasone Propionate 50 MCG/ACT Nasal Suspension (Flonase)Indication s:Acute maxillary sinusitis, recurrence not specified SPRAY 2 SPRAYS INTO EACH NOSTRIL EVERY DAY 16 mL 1 2 05/12/20 24 Discontinued predniSONE 5 MG Oral Tablet (Deltasone) Take 10mg daily for 4 days then 5mg daily 34 Tablet 2 3 05/12/20 24 Discontinued Benzonatate 200 MG Oral Capsule 3 05/12/20 24 Discontinued Cholecalciferol 1.25 MG (29306 UT) Oral Capsule 3 05/12/20 24 Discontinued Lubiprostone 24 MCG Oral Capsule (Amitiza) Take 1 Capsule by mouth 2 times a day with morning and evening meals. 60 Capsule 5 4 05/12/20 24 Discontinued Lactulose Encephalopathy 10 GM/15ML Oral Solution (Enulose)Indication s:Chronic constipation TAKE 30 ML BY MOUTH 1-3 TIMES A DAY TO AFFECT ONE BOWEL MOVEMENT PER DAY 240 mL 5 4 05/12/20 24 Discontinued Hospital, Clinic, or Other Facility Administered Medication Ordered Dose Route Frequency Start Date End Date Status Lidocaine (PF) 2 % (PF) inj 20 mgIndications:Impingement syndrome of both shoulders 20 mg IX ONCE 05/12/2024 4 Ended Lidocaine (PF) 2 % (PF) inj 20 mgIndications:Impingement syndrome of both shoulders 20 mg IX ONCE 05/12/2024 4 Ended methylPREDNISolone acetate (Depo-Medrol) 40 MG/ML inj 40 mgIndications:Impingement syndrome of both shoulders 40 mg IX ONCE 05/12/2024 4 Ended methylPREDNISolone acetate (Depo-Medrol) 40 MG/ML inj 40 mgIndications:Impingement syndrome of both shoulders 40 mg IX ONCE 05/12/2024 4 Ended documented as of this encounter (statuses as of 05/12/2024) Active Problems Problem Noted Date Diagnosed Date [...] as of this encounter (statuses as of 05/12/2024) Resolved Problems Problem Noted Date Diagnosed Date [...] as of this encounter (statuses as of 05/12/2024) Immunizations Name Administration Dates Next Due COVID-19 [...] Cigarettes Q uit: 08/24/1982 Smokeless Tobacco: Never Tobacco Cessation:Counseling Given: Not Answered Comments:Pt was just a social smoker Alcohol Use Standard Drinks/Week Comments Not [...] Sign Reading Time Taken Comments Blood Pressure - - Pulse - - Temperature 36.3 C (97.3 F) 05/12/2024 11:22 AM E DT Respiratory Rate - - Oxygen Saturation - - Inhaled Oxygen Concentration - - Weight 76.7 kg (169 lb) 05/12/2024 11:22 AM EDT Height - - Body Mass Index 27.28 11/17/2023 12:39 PM EDT documented in this encounter Nursing Notes * Charisma Koch LPN - 05/12/2024 11:18 AM EDT Chief Complaint Patient presents with Rheum Follow Up Recheck RA documented in this encounter Plan of Treatment Upcoming Encounters Date Type Department Care Team (Late st Contact Info) Description 07/14/2024 9:30 AM EST Office Visit Gastroenterology, [facility] [address] [address] Anastasia Mendez CRNP [address] [place] [address] 10/13/2024 10:00 AM EST Office Visit Rheumatology [address] [place] [phone] Leidy Nunn CRNP [address] [facility] [place] [address] Pending Results Name Type Priority Associated Diagnoses Date /Time LG Joint Inj/Arthro: bilateral subacromial bursa Procedures Routine Impingement syndrome of both shoulders 05/12/2024 11:54 AM EDT Scheduled Procedures Name Priority Associated Diagnoses Date/Ti [...] this encounter Medical Devices Implanted Type Area Plant Utility Person Device Identifier Shelf Expiration Date Model / Serial / Lot Hemostatic Clip Res 235cm - [id number] Implanted:Qty: 2 on 11/17/2023 by Zakia Mathur DO at ENDOSCOPY [facility] [employer] : ENDOSCOPY 04/12/2026 [id number] / / documented as of this encounter Procedures Procedure Name Priority Date/Time Associated Diagnosis Comments PROCDOC LARGE JOINT INJECTION/ARTHROCENTES IS Routine 05/12/2024 11:54 AM EDT Impingement syndrome of both shoulders documented in this encounter Visit Diagnoses Diagnosis Impingement syndrome of both shoulders- Primary Other affections of shoulder region, not elsewhere classified Rheumatoid arthritis involving both hands with positive rheumatoid factor (HCC) DDD (degenerative disc disease), cervical Degeneration of cervical intervertebral disc documented in this encounter Administered Medications Inactive Administered Medications - up to 3 most recent administrations Medication Order MAR Action Action Date Dose Rate Site Lidocaine (PF) 2 % (PF) inj 20 mg 20 mg, Intra-Articular, ONCE, On Wed05/12/24 at 1215, For 1 dose Given 05/12/2024 11:42 AM EDT 20 mg Shoulder Left Lidocaine (PF) 2 % (PF) inj 20 mg 20 mg, Intra-Articular, ONCE, On Wed05/12/24 at 1215, For 1 dose Given 05/12/2024 11:43 AM EDT 20 mg Shoulder Right methylPREDNISolone acetate (Depo-Medrol) 40 MG/ML inj 40 mg 40 mg, Intra-Articular, ONCE, On Wed05/12/24 at 1215, For 1 dose Given 05/12/2024 11:43 AM EDT 40 mg Shoulder Right methylPREDNISolone acetate (Depo-Medrol) 40 MG/ML inj 40 mg 40 mg, Intra-Articular, ONCE, On Wed05/12/24 at 1215, For 1 dose Given 05/12/2024 11:42 AM EDT 40 mg Shoulder Left documented in this encounter Care Teams Bunch Trimmer Mold Relationship Specialty Start Date End Date Bruna Kaur MD [address] [place] [address] PCP - General Internal Medicine 06/03/21 documented as of this encounter
--- OUTSIDE RECORDS SUMMARY | 2024-10-09 19:54 | External Medical Summary | Summary of Care ---
Author Name Unknown Organization [facility] Address [address] [facility] [facility] [address] Phone [phone] Care Team Providers Care Grain Mixer Name Role Phone Bruna Kaur MD Primary Care Provider Reason for Visit * Reason Comments Rheum Follow Up Recheck RA Encounter Details Date Type Department Care Team (Late st Contact Info) Description 05/12/2024 11:30 AM EDT Office Visit Rheumatology [address] [place] [phone] Christian Santana PA-C [address] [facility] [place] [address] Impingement syndrome of both shoulders*; Rheumatoid arthritis [...] 3 05/12/20 24 Discontinued Cholecalciferol 1.25 MG (06803 UT) Oral Capsule 3 05/12/20 24 Discontinued [...] 12:39 PM EDT documented in this encounter Progress Notes * Christian Santana PA-C - 05/12/2024 11:24 AM EDTAssociated Order(s): LG Joint Inj/Arthro: bilateral subacromial bursa Post-Procedure Diagnose(s): Impingement syndrome of both shoulders Subjective: Patient seen today for further follow up evaluation of shoulder/arm pain. She has been having worsening shoulder pain for the last several weeks with radiation to bilateral elbows with some radiationto wrist on her right side that is exacerbated by arm movement and hurts to touch. She has had injections with last ones three months ago in shoulders which did not help, but she would like to have them performed again. She had surgery on right shoulder for adhesive capsulitis. She has hx of RA, but has been off treatment for a couple years without recurrence of disease. All other review of systems reviewed and negative other than mentioned in HPI. Social History: Social History Tobacco Use Smoking status: Former Current packs/day: 0.00 Types: Cigarettes Quit date: 08/24/1982 Years since quittin.7 Smokeless tobacco: Never Tobacco comments: Pt was just a social smoker Substance Use Topics Alcohol use: Not Currently Comment: none since 2019 Vaping/E-Cigarette Use Vaping/E-Cigarette Use Never User Vaping/E-Cigarette Substances Vaping/E-Cigarette Devices Current Outpatient Medications Medication Sig Dispense Refill Acetaminophen Extra Strength 500 MG Oral Tablet Zoster Vac Recomb Adjuvanted 50 MCG/0.5ML Intramuscular Suspension Reconstituted (Shingrix) Inject 0.5 mL into a large muscle now and repeat dose in 60 to 180 days 1 Each 1 Famotidine 20 MG Oral Tablet (Pepcid) Dicyclomine HCl 10 MG Oral Capsule (Bentyl) Take 1 Capsule by mouth 2 times a day as needed for Cramping. 180 Capsule 4 Multivitamin Women 50+ Oral Tablet Take by [...] Tablet by mouth daily. 90 Tablet 3 tiZANidine HCl 4 MG Oral Tablet (Zanaflex) Take 1 Tablet by mouth every 8 hours as needed for Muscle spasms. (Patient not taking: Reported on 05/12/2024) 30 Tablet 1 hydroCHLOROthiazide 25 MG Oral Tablet (Hydrodiuril) Take 1 Tablet by mouth in the morning. (Patientnot taking: Reported on 05/12/2024) 90 Tablet 0 No current facility-administered medications for this visit. Physical Exam: Temp 36.3 C (97.3 F) (Infrared ) | Wt 76.7 kg (169 lb) | BMI 27.28 kg/m | BSA 1.89 m MRI c spine reviewed Xr shoulder reviewed from 05/05/2019 and 12/06/2019 Physical Exam Constitutional: General: She is not in acute distress. Appearance: Normal appearance. She is normal weight. She is not ill-appearing or toxic-appearing. HENT: Head: Normocephalic and atraumatic. Eyes: Extraocular Movements: Extraocular movements intact. Conjunctiva/sclera: Conjunctivae normal. Pupils: Pupils are equal, round, and reactive to light. Cardiovascular: Rate and Rhythm: Normal rate and regular rhythm. Heart sounds: Normal heart sounds. No murmur heard. No friction rub. No gallop. Pulmonary: Effort: Pulmonary effort is normal. Breath sounds: Normal breath sounds. No wheezing, rhonchi or rales. Musculoskeletal: Right lower leg: No edema. Left lower leg: No edema. Comments: Decreased Rom of left arm without only about 70 degrees of flexion/abduction. Positive garcia test and painful arc bilaterally. Negative drop arm test. She has significant tenderness to light tough of cervical area, shoulder and upper arms. Special Tax Auditor strength 5/5 bilaterally. Skin: Findings: No bruising, erythema or rash. Neurological: Mental Status: She is alert. Assessment: 1. Impingement syndrome of both shoulders Injections performed as requested since she has benefit in the past and has some exam findings of impingement syndrome. She has a lot of unusual soft tissue tenderness to light palpation. With radiation of her pain down her arms, I have concern that source could be her documented cervical disease. She will update in two weeks on symptoms and if still persistent will refer to interventional pain management. - Lidocaine (PF) 2 % (PF) inj 20 mg - Lidocaine (PF) 2 % (PF) inj 20 mg - methylPREDNISolone acetate (Depo-Medrol) 40 MG/ML inj 40 mg - methylPREDNISolone acetate (Depo-Medrol) 40 MG/ML inj 40 mg 2. Rheumatoid arthritis involving both hands with positive rheumatoid factor (HCC) Still in remission 3. DDD (degenerative disc disease), cervical LG Joint Inj/Arthro: bilateral subacromial bursa on 05/12/2024 11:54 AM Indications: pain Details: 25 G needle, posterior approach Medications (Right): (1 cc lidocaine 2% and 40 mg of depo-medrol ) Aspirate (Right): 0 mL Medications (Left): (1 cc lidocaine 2% and 40 mg of depo-medrol ) Aspirate (Left): 0 mL Outcome: tolerated well, no immediate complications Procedure, treatment alternatives, risks and benefits explained, specific risks discussed. Consent was given by the patient. Immediately prior to procedure a time out was called to verify the correctpatient, procedure, equipment, computer support specialist instructor and site/side marked as required. Patient was prepped and draped in the usual sterile fashion. Christian Santana PA-C Department of Rheumatology The patient was discussed with me. I agree with the findings and plan as documented by Christian ARGUELLO in this note. Ezio Sánchez MD Rheumatology Department documented in this encounter Nursing Notes * Charisma Koch LPN - 05/12/2024 11:18 AM EDT Chief Complaint Patient presents with Rheum Follow Up Recheck RA documented in this encounter Plan of Treatment Upcoming Encounters Date Type Department Care Team (Late st Contact Info) Description 07/14/2024 9:30 AM EST [facility] [place] [address] Anastasia Mendez CRNP [address] [place] [address] 10/13/2024 10:00 AM EST Office Visit Rheumatology [address] [place] [phone] Leidy Nunn CRNP [address] [place] [address] [place] [address] Scheduled Procedures Name Priority Associated Diagnoses Date/Ti [...] 05/14/2020, Additional history exists GFR 09/24/2024 09/24/2023, 0 12/2022, 05/12/2023, Additional [...] this encounter Medical Devices Implanted Type Area Manager Deli Device Identifier Shelf Expiration Date Model / Serial / Lot Hemostatic Clip Res 235cm - [id number] Implanted:Qty: 2 on 11/17/2023 by Zakia Mathur DO at ENDOSCOPY [facility] : ENDOSCOPY 04/12/2026 [id number] / / documented as of this encounter Procedures Procedure Name Priority Date/Time Associated Diagnosis Comments MT ARTHROCENTESIS ASPIR&/INJ MAJOR JT/BURSA W/O US Routine 05/12/2024 11:54 AM EDT Impingement syndrome of both shoulders documented in this encounter Results * MT ARTHROCENTESIS ASPIR&/INJ MAJOR JT/BURSA W/O US (05/12/2024 11:54 AM EDT) Narrative Ezio Sánchez MD - 05/12/2024 11:54 AM EDT Ezio Sánchez MD 05/12/2024 12:24 PM LG Joint Inj/Arthro: bilateral subacromial bursa on 05/12/2024 11:54 AM Indications: pain Details: 25 G needle, posterior approach Medications (Right): (1 cc lidocaine 2% and 40 mg of depo-medrol ) Aspirate (Right): 0 mL Medications (Left): (1 cc lidocaine 2% and 40 mg of depo-medrol ) Aspirate (Left): 0 mL Outcome: tolerated well, no immediate complications Procedure, treatment alternatives, risks and benefits explained, specific risks discussed. Consent was given by the patient. Immediately prior to procedure a time out was called to verify the correct patient, procedure, equipment, computer support specialist instructor and site/side marked as required. Patient was prepped and draped in the usual sterile fashion. Christian Santana PA-C PROCDOC FORM documented in this encounter Visit Diagnoses Diagnosis [...] Left documented in this encounter Care Teams Grain Mixer Relationship Specialty Start Date End Date Bruna Kaur MD [address] [facility] [place] [address] PCP - General Internal Medicine 06/03/21 documented as of this encounter"
[2024-10-10 02:56] LABS: Basophils # (auto) 0.01 K/uL (0.00-0.20); Basophils % (auto) 0.4 %; Eosinophils # (auto) 0.03 K/uL (0.00-0.50); Eosinophils % (auto) 1.1 %; Hematocrit (blood only) 30.9 % (37.0-47.0); Hemoglobin 10.4 g/dl (12.0-16.0); Immature Granulocytes # (auto) 0.01 K/uL (0.01-0.20); Immature Granulocytes % (auto) 0.4 %; Lymphocytes # (auto) 0.98 K/uL (1.20-3.40); Lymphocytes % (auto) 35.9 %; Mean Corpuscular Hgb Conc 33.7 g/dL (32.0-36.0); Mean Corpuscular Volume 83.3 fL (80.0-100.0); Mean Platelet Volume 10.2 fL (9.4-12.4); Monocytes # (auto) 0.23 K/uL (0.11-0.59); Monocytes % (auto) 8.4 %; Neutrophils # (auto) 1.47 K/uL (1.40-6.50); Neutrophils % (auto) 53.8 %; Platelet Count 58 K/uL (130-400); RDW Coefficient of Variation 14.6 % (11.5-14.5); RDW Standard Deviation 44.2 fL (36.4-46.3); Red Blood Count 3.71 M/uL (4.20-5.40); White Blood Count 2.73 K/ul (4.8-10.8)
[2024-10-10 03:29] LABS: BUN Creatinine Ratio 17.8 (10-20); Calcium 8.4 mg/dl (8.6-10.3); Chol HDL Ratio 5.9 (0-5); Creatinine Clr Calc Pharmacy 74.8 ml/min; Magnesium 1.7 mg/dl (1.7-2.4); Potassium 3.6 mmol/L (3.5-5.1)
[2024-10-10] MEDS ORDERED: LANTUS PER UNIT CHARGE SC ONE (08:00)
[2024-10-10 08:43] LABS: Estimated Average Glucose 381 mg/dl; Hemoglobin A1C 14.9 % (4.5-5.6)
[2024-10-10] MEDS: LOSARTAN POTASSIUM 50 MG TAB PO SCH (09:16)
[2024-10-10] MEDS: ATORVASTATIN 20 MG TAB PO SCH (09:16)
[2024-10-10] MEDS: PANTOprazole 40 MG TAB PO SCH (09:16)
[2024-10-10] MEDS: amLODIPine BESYLATE 5 MG TAB PO SCH (09:16)
--- NOTE | 2024-10-10 10:23 | Pharmacy Report ---
Pharmacy Glycemic Short Note 2 - Date of Service October 10, 2024 - Glycemic Short BSG Results (Last 24 hours): 10/09/24 10/09/24 10/09/24 12:59 17:44 21:31 Glucose 498 H* POC Glucose 287 H 266 H 10/09/24 10/10/24 10/10/24 23:41 02:36 08:15 Glucose 334 H* POC Glucose 301 H* 292 H OUTPATIENT ANTIDIABETIC REGIMEN: * n/a ASSESSMENT: * 64 year old admitted with hyperglycemia, BSGs >400 mg/dL. A1c 14.9% on admission, not on any diabetic medications outpatient. Pharmacy consulted for glycemic management. * Fasting BSG ~300 mg/dL this AM - will start basal insulin 0.3 units/kg x 1 now. Will adjust novolog to weight based stress of 3 dosing. Discussed with provider that patient likely would benefit from continuation of insulin at time of discharge. Would ensure patient receives diabetes education prior to discharge to ensure patient comfortable with insulin administration/monitoring. Would recommend close follow up outpatient upon discharge. PLAN FOR INPATIENT GLYCEMIC CONTROL: * Hold outpatient oral diabetes medications * Basal insulin * Lantus 20 units x 1 * Bolus insulin * NovoLog per scale ACHS or Q6hrs while NPO * Goal Range: Low 110 mg/dL - High 140 mg/dL * Correction Factor: 25 mg/dL/unit * Nutritional / Prandial insulin per carb ratio of 1 unit per 8 grams CHO consumed
[2024-10-10] MEDS: LANTUS PER UNIT CHARGE SC SCH (10:52)
[2024-10-10] MEDS: INSULIN ASPART PER UNIT CHARGE SC SCH (14:13)
--- NOTE | 2024-10-10 17:30 | Hospitalist Progress Note ---
Date of Service October 10, 2024 Assessment & Plan (1) Hyperglycemia due to type 2 diabetes mellitus: (2) Cirrhosis of liver: (3) GERD (gastroesophageal reflux disease): (4) Hypertension: (5) Hyperlipidemia: Plan This is a 64 y/o female with cirrhosis, presumed secondary to steatohepatitis vs. medication-induced, RA, GERD, HTN, dyslipidemia, and other history as outlined below who presented to the ED today for evaluation of worsening symptoms including dry mouth, polydipsia, and fatigue. Work-up in the ED revealed blood glucose of 498. Upon review of patient's outpatient records, her last A1c was 6.1 on 10/31/21 when she was diagnosed with prediabetes. Pt has not had a f/u A1c since then. PCP notes from the last two months were also reviewed to determine outpatient interventions. #Newly diagnosed DM2 - A1c pending #Hyperglycemia - Insulin sliding scale, consult glycemic pharmacy for assistance with medication initiation and management - start NS 125cc/hr for fluid resuscitation in setting of hyperglycemia - Consult ict educator - Diabetic diet, BSGs - Labs in the AM - CBC, BMP, lipid panel #Hypertension - chronic, elevated BP in the ED but pt unsure if she took her medications this morning - Resume outpatient regimen - amlodipine, losartan - and monitor #Hyperlipidemia - Chronic, continue statin #GERD - Chronic, continue PPI #Cirrhosis with thrombocytopenia - No evidence of decompensation at present, routine GI f/u Feeding/fluids: diabetes Analgesia: tylenol Sedation: na Thromboprophylaxis: SCD 2/2 low platlets Head up position: na Ulcer prophylaxis: na Glycemic control: pharmacy consult Spontaneous breathing trial: na Bowel care: miralax prn Indwelling catheter removal: na Deescalation of antibiotics: na I spent a total of 45 minutes in direct patient care, including [id number] time with the patient and/or family, reviewing medical records, ordering and reviewing diagnostic tests, and coordinating care with other healthcare providers. This time includes: history taking, physical examination, medical decision making, counseling, ECG interpretation, imaging interpretation, lab interpretation, orders, and education, excluding time spent in the performance of separately billed services. Admission and Anticipated Discharge Date Admission Date: October 09, 2024 Subjective Patient seen and examined at bedside. Patient is doing well today. Working with ict educator during evaluation. States she does not feel quite back to her baseline but is hoping to feel better tomorrow. Review of Systems Review of Systems: CONSTITUTIONAL: dry mouth, weakness, fatigue EYES: blurry vision EARS, NOSE, AND THROAT: No difficulties with hearing. No symptoms of rhinitis or sore throat. CARDIOVASCULAR: Patient denies chest pains, palpitations, orthopnea and paroxysmal nocturnal dyspnea. RESPIRATORY: No dyspnea on exertion, no wheezing or cough. GI: No nausea, vomiting, diarrhea, constipation, abdominal pain, hematochezia or melena. : No urinary hesitancy or dribbling. No nocturia or urinary frequency. No abnormal urethral discharge. MUSCULOSKELETAL: No myalgias or arthralgias. NEUROLOGIC: No chronic headaches, no seizures. Patient denies numbness, tingling or weakness. PSYCHIATRIC: Patient denies problems with mood disturbance. No problems with anxiety. ENDOCRINE: No excessive urination or excessive thirst. DERMATOLOGIC: Patient denies any rashes or skin changes. Physical Exam Physical Exam: Gen: A&O 3 NAD HEENT: NCAT, EOMI, not icteric. External ears normal. No rhinorrhea. dry mucous membranes. Neck: Supple, full range of motion, no observable masses, No meningeal sign. Lungs: No Respiratory distress. CV: RRR, no edema. Abdomen: Soft, nondistended, No rebound tenderness. MSK: No joint swelling, no redness. Skin: No rashes, petechiae, lesions. Normal color per patient. Neuro: Normal Gait, Grossly intact. Psych: Appropriate for situation. Results & Data Results & Data Vital Signs (Past 12 Hours) Vital Signs Temp Pulse Pulse Resp BP Pulse Ox O2 Del Method 10/10/24 16:00 Room Air 10/10/24 15:19 36.4 C L 82 18 153/82 H 98 Room Air 10/10/24 15:12 88 10/10/24 13:00 79 18 126/70 95 Room Air 10/10/24 07:17 63 10/10/24 06:41 67 17 121/66 95 Room Air Laboratory Results -personally reviewed, no evidence of elevated anion gap, still has elevated glucose Medications Administered Acetaminophen (Acetaminophen 325 Mg Tab) 650 mg PO Q4H PRN PRN Reason: Pain or Fever Stop: 11/08/24 18:46 Last Admin: 10/09/24 19:12 Dose: 650 mg Documented By: JUICE Amlodipine Besylate (Amlodipine Besylate 5 Mg Tab) 5 mg PO DAILY [facility] Stop: 11/09/24 08:59 Last Admin: 10/10/24 09:16 Dose: 5 mg Documented By: JENNIFER Atorvastatin Calcium (Atorvastatin 20 Mg Tab) 20 mg PO QAM [facility] Stop: 11/09/24 08:59 Last Admin: 10/10/24 09:16 Dose: 20 mg Documented By: JENNIFER Insulin Aspart (Insulin Aspart Per Unit Charge) 0 units SC ACHS [facility] Stop: 11/09/24 11:29 Last Admin: 10/10/24 14:13 Dose: 11 units Documented By: JENNIFER Co-signed By: AM Losartan Potassium (Losartan Potassium 50 Mg Tab) 100 mg PO QAM [facility] Stop: 11/09/24 08:59 Last Admin: 10/10/24 09:16 Dose: 100 mg Documented By: JENNIFER Pantoprazole Sodium (Pantoprazole 40 Mg Tab) 40 mg PO DAILY [facility] Stop: 11/09/24 08:59 Last Admin: 10/10/24 09:16 Dose: 40 mg Documented By: JENNIFER (1) Hyperglycemia due to type 2 diabetes mellitus Diabetes mellitus watermaster insulin use: without halfway use Qualified Code(s): E11.65 - Type 2 diabetes mellitus with hyperglycemia (2) Cirrhosis of liver Ascites presence: without ascites Hepatic cirrhosis type: unspecified hepatic cirrhosis Qualified Code(s): K74.60 - Unspecified cirrhosis of liver (3) GERD (gastroesophageal reflux disease) Esophagitis presence: esophagitis presence not specified Qualified Code(s): K21.9 - Gastro-esophageal reflux disease without esophagitis (4) Hypertension Hypertension type: unspecified Qualified Code(s): I10 - Essential (primary) hypertension (5) Hyperlipidemia Hyperlipidemia type: unspecified Qualified Code(s): E78.5 - Hyperlipidemia, unspecified
[2024-10-10] MEDS ORDERED: POLYETHYLENE (MIRALAX) 17 GM PACK PO PRN (17:32)
[2024-10-10] MEDS: SODIUM CHLORIDE 0.9% 1,000 ML IV SCH (18:07)
[2024-10-10] MEDS ORDERED: PROMETHAZINE 6.25 MG/50.25 ML BAG IV PRN (20:30)
[2024-10-10] MEDS: PROMETHAZINE 6.25 MG/50.25 ML BAG IV STA (21:02)
[2024-10-11] MEDS: INSULIN ASPART PER UNIT CHARGE SC SCH (01:31)
[2024-10-11 06:10] LABS: Hematocrit (blood only) 30.2 % (37.0-47.0); Hemoglobin 10.1 g/dl (12.0-16.0); Mean Corpuscular Hemoglobin 27.9 pg (25.0-34.0); Mean Corpuscular Hgb Conc 33.4 g/dL (32.0-36.0); Mean Corpuscular Volume 83.4 fL (80.0-100.0); Mean Platelet Volume 9.8 fL (9.4-12.4); Platelet Count 57 K/uL (130-400); RDW Coefficient of Variation 14.4 % (11.5-14.5); RDW Standard Deviation 43.7 fL (36.4-46.3); Red Blood Count 3.62 M/uL (4.20-5.40); White Blood Count 2.58 K/ul (4.8-10.8)
[2024-10-11 06:18] LABS: BUN Creatinine Ratio 19.4 (10-20); Calcium 8.5 mg/dl (8.6-10.3); Creatinine Clr Calc Pharmacy 88.1 ml/min; Magnesium 1.5 mg/dl (1.7-2.4); Phosphorus 3.1 mg/dl (2.5-4.9)
[2024-10-11] MEDS: MAGNESIUM SULFATE / D5W 1 GM/100 ML BAG IV SCH (08:18)
[2024-10-11] MEDS: LANTUS PER UNIT CHARGE SC SCH (08:46)
[2024-10-11 11:24] VITALS: BP 142/82; RESP 20; TEMP 97.3; O2SAT 95
--- NOTE | 2024-10-11 12:14 | Pharmacy Report ---
Pharmacy Glycemic Short Note 2 - Date of Service October 11, 2024 - Glycemic Short BSG Results (Last 24 hours): 10/10/24 10/10/24 10/10/24 12:21 16:44 20:18 Glucose POC Glucose 320 H* 293 H 317 H* 10/11/24 10/11/24 10/11/24 00:03 05:20 08:04 Glucose 142 H POC Glucose 218 H 157 H 10/11/24 11:54 Glucose POC Glucose 245 H OUTPATIENT ANTIDIABETIC REGIMEN: * A1C 14.9% 09/17/24 * None, new diagnosis ASSESSMENT: 10/11 * Pt received 71 units of insulin yesterday * 20 units of glargine * 51 units aspart * BSGs remain above goal range but are decreasing slowly. Fasting this AM close to goal range. Glargine decreased to 12 units QAM, closer to 0.2 units/kg. CF/CR tightened to 20/5. Lunchtime BSG spiked at 245, added on a scaled dose of glargine for this PM, no further changes to CF/CR since only changed for 1 dose. * T2DM diet ordered. 10/10 * 64 year old admitted with hyperglycemia, BSGs >400 mg/dL. A1c 14.9% on admission, not on any diabetic medications outpatient. Pharmacy consulted for glycemic management. * Fasting BSG ~300 mg/dL this AM - will start basal insulin 0.3 units/kg x 1 now. Will adjust novolog to weight based stress of 3 dosing. Discussed with provider that patient likely would benefit from continuation of insulin at time of discharge. Would ensure patient receives diabetes education prior to discharge to ensure patient comfortable with insulin ad ministration/monitoring. Would recommend close follow up outpatient upon discharge. PLAN FOR INPATIENT GLYCEMIC CONTROL: * Hold outpatient oral diabetes medications * Basal insulin * Lantus 12 units QAM * Lantus scale 0-5 units * Bolus insulin * NovoLog per scale ACHS or Q6hrs while NPO * Goal Range: Low 110 mg/dL - High 140 mg/dL * Correction Factor: 20 mg/dL/unit * Nutritional / Prandial insulin per carb ratio of 1 unit per 5 grams CHO consumed
[2024-10-11 16:18] VITALS: PULSE 83
--- NOTE | 2024-10-11 16:51 | Discharge Summary ---
Discharge Summary Date of Service October 11, 2024 Principal Dx & Hospital Course #1 = Principal Diagnosis (1) Hyperglycemia due to type 2 diabetes mellitus: (2) Cirrhosis of liver: (3) GERD (gastroesophageal reflux disease): (4) Hypertension: (5) Hyperlipidemia: Plan This is a 64 y/o female with cirrhosis, presumed secondary to steatohepatitis vs. medication-induced, RA, GERD, HTN, dyslipidemia, and other history as outli joi below who presented to the ED today for evaluation of worsening symptoms including dry mouth, polydipsia, and fatigue. Work-up in the ED revealed blood glucose of 498. Upon review of patient's outpatient records, her last A1c was 6.1 on 10/31/21 when she was diagnosed with prediabetes. Pt has not had a f/u A1c since then. PCP notes from the last two months were also reviewed to determine outpatient interventions. #Newly diagnosed DM2 - A1c pending #Hyperglycemia - Insulin sliding scale, consult glycemic pharmacy for assistance with medicat ion initiation and management - feels better ever fluids - Consult informatics educator - Diabetic diet, BSGs - discharge with insulin, diabetic supplies, metformin #Hypertension - chronic, elevated BP in the ED but pt unsure if she took her medications this morning - Resume outpatient regimen - amlodipine, losartan - and monitor #Hyperlipidemia - Chronic, continue statin #GERD - Chronic, continue PPI #Cirrhosis with thrombocytopenia - No evidence of decompensation at present, routine GI f/u Notes For Next Care Provider This is a 64 y/o female with cirrhosis, presumed secondary to steatohepatitis vs. medication-induced, RA, GERD, HTN, dyslipidemia, and other history as outlined below who presented to the ED today for evaluation of worsening symptoms including dry mouth, polydipsia, and fatigue. Work-up in the ED revealed blood glucose of 498. Patient given fluids, diabetic education, insulin, care kit ordered at discharge. Patient needs close f/u with PCP, and endocrinology down the line. Medication Changes From Visit -metformin, insulin supplies Admission HPI Per Admitting Provider This is a 64 y/o female with cirrhosis, presumed secondary to steatohepatitis vs. medication-induced, RA, GERD, HTN, dyslipidemia, and other history as outlined below who presented to the ED today for evaluation of worsening symptoms including dry mouth, polydipsia, and fatigue. Pt reports her co-workers noted that she looked "tired" in Nov/Jul and she felt "off" during that time. Over the holidays, she was visiting family in [place] and wasn't able to participate in the activities due to fatigue. When she returned to [place] in early August, she started feeling particularly ill, even missing her last couple days of work before correction. Since then, she has noted progressive polydipsia consuming at least 8-10 20-oz bottles of water per day plus iced tea. She notes polyuria with associated urgency, nocturia x4/night, and occasional incontinence. She has also noted intermittent dysuria but no hematuria. Her appetite has been variable but most recently has been poor with limited food intake. She is craving cold drinks and foods over the last few weeks. She reports at least 15 lb wt loss (unintentional) since her symptoms started. Her vision has been blurry and "dark" at times but fluctuating. Her last eye exam was in August 2023 - she denies similar issues with vision previously. She has been dizzy intermittently but denies syncope, chest pain, palpitations. She has been complaining of dyspnea on exertion and has seen her PCP for this complaint. She was treated with a course of Augment in August without relief. She followed up in early September and had a chest x-ray done, which was clear. She was given a five day prednisone burst and course of doxycycline, which she did not finish because it was not helpful. She also tried stopping her HCTZ a few days ago because she thought it might help with the frequent urination. She reports a generalized sensation of stomach upset but denies vomiting or diarrhea. She is scheduled to have an EGD on Wednesday as an outpatient. Discharge Exam Gen: A&O 3 NAD HEENT: NCAT, EOMI, not icteric. External ears normal. No rhinorrhea. dry mucous membranes. Neck: Supple, full range of motion, no observable masses, No meningeal sign. Lungs: No Respiratory distress. CV: RRR, no edema. Abdomen: Soft, nondistended, No rebound tenderness. MSK: No joint swelling, no redness. Skin: No rashes, petechiae, lesions. Normal color per patient. Neuro: Normal Gait, Grossly intact. Psych: Appropriate for situation. Updated Medication List Medication Instructions Recorded Confirmed Type losartan 100 mg tablet 100 mg PO QAM 01/24/20 10/09/24 History atorvastatin 20 mg tablet 20 mg PO QAM 11/05/20 10/09/24 History amlodipine 5 mg tablet 5 mg PO DAILY 10/09/24 10/09/24 History pantoprazole 40 mg tablet,delayed 40 mg PO DAILY 10/09/24 10/09/24 History release blood sugar diagnostic #100 ea 10/11/24 Rx blood-glucose meter (FreeStyle #1 ea 10/11/24 Rx Wickett kit) insulin glargine-yfgn 100 unit/mL 12 unit (0.12 mL) subcut PM #15 mL 10/11/24 Rx (3 mL) subcutaneous pen (Semglee (insulin glargine-yfgn) Pen) lancets #200 ea 10/11/24 Rx metformin 750 mg tablet,extended 750 mg PO BID #60 tabs 10/11/24 Rx release 24 hr pen needle, diabetic 32 gauge x #100 ea 10/11/24 Rx 5/32" (Pen Needle) Hospital Stay Data Consultations 10/09/24 15:29 ED Decision to Admit Stat Pending Results Patient Have Any Pending Studies at Discharge: No Discharge Instructions Given to Patient (Per Discharging Provider) 1. Please drink plenty of fluids. 2. Please see family life educator notes on diabetes management. 3. Please take insulin and metformin daily. 4. Please follow up with PCP within 2 weeks of discharge. Total Time Total Time Spent Total Time Spent (In Minutes): I spent a total of 40 minutes in direct patient care, including [id number] time with the patient and/or family, reviewing medical records, ordering and reviewing diagnostic tests, and coordinating care with other healthcare providers. This time includes: history taking, physical examination, medical decision making, counseling, ECG interpretation, imaging interpretation, lab interpretation, orders, and education, excluding time spent in the performance of separately billed services.
[2024-10-11] MEDS ORDERED: LANTUS PER UNIT CHARGE SC SCH (21:00)
== END 2024-10-11 16:55 | disposition home or self-care (01) | DRG 639 ==
LOC: ED 12:27 → SUATTDRO 16:14 → EDINP 16:14 → 2N 10-10 15:07
DX: Z87.891 Personal history of nicotine dependence; Z88.2 Allergy status to sulfonamides; D69.6 Thrombocytopenia, unspecified; Z79.899 Other long term (current) drug therapy; Z88.6 Allergy status to analgesic agent; E78.5 Hyperlipidemia, unspecified; I10 Essential (primary) hypertension; Z88.1 Allergy status to other antibiotic agents; E11.65 Type 2 diabetes mellitus with hyperglycemia; K74.60 Unspecified cirrhosis of liver; K21.9 Gastro-esophageal reflux disease without esophagitis